=== PATIENT | female | born 1995 | race Caucasian/White ===

== ENCOUNTER 2022-07-28 17:20 | Outpatient (OUT) | payer OTHER, SELFPAY | END 2022-07-28 17:21 | disposition home or self-care (01) | PROVIDERS: PCP Obstetrics & Gynecology; Visit Provider Obstetrics & Gynecology | DX: O21.0 Mild hyperemesis gravidarum (principal); Z3A.00 Weeks of gestation of pregnancy not specified | CPT/HCPCS: 96360; 96361 ==

== ENCOUNTER 2022-08-11 17:03 | Outpatient (OUT) | payer OTHER, SELFPAY ==
[2022-08-11 17:54] VITALS: RESP 16
[2022-08-11 17:57] VITALS: BP 136/82; PULSE 76; RESP 16; TEMP 36.1; O2SAT 98
[2022-08-11] MEDS: MULTIVIT INFUSN,ADULT 4,VIT K 10 ML in 0.9 % SODIUM CHLORIDE 1,000 ML 200 ML IV (18:36)
[2022-08-11 21:23] VITALS: BP 108/70; PULSE 83; RESP 20; TEMP 36.4; O2SAT 98
== END 2022-08-11 23:24 | disposition home or self-care (01) ==
LOC: INF 17:05 → MS 17:09 → INF 17:12 → MS 17:24
PROVIDERS: PCP Obstetrics & Gynecology; Visit Provider Obstetrics & Gynecology
DX: O21.0 Mild hyperemesis gravidarum (principal); Z3A.00 Weeks of gestation of pregnancy not specified

== ENCOUNTER 2022-08-22 14:30 | Outpatient (OUT) | payer OTHER, SELFPAY ==
--- NOTE | 2022-08-22 | US_ITS ---
[address] [address] Patient Name: KEYSHA HOGAN MRN: [id number] date: 1995 Sex: F Assigned Patient Location: US Current Patient Location: US Accession/Order Number: [id number] Exam Date: 08/22/2022 14:35 Report Date: 08/23/2022 21:55 At the request of: TONY SERNA Procedure: US OB transvaginal EXAMINATION: US OB anatomy, US OB transvaginal HISTORY: ANATOMY COMPARISON: No relevant comparison available. TECHNIQUE: Transabdominal sonographic examination was performed for obstetrical and evaluation. FINDINGS: Number: 1 Heart Rate: 141.0 bpm H.B. /min Amniotic Fluid Volume: Subjectively normal position: Transverse presentation and lie Placental Location: Posterior, grade 0. The placental edge 3 cm from the cervical os Cervix Length: 4.4 cm, closed Normally visualized anatomy: Cerebellum, choroid plexus, cisterna magna, lateral cerebral ventricles, orbits, midline falx, hard palate, four-chamber heart, RVOT, LVOT, stomach, kidneys, bladder, umbilical cord insertion into the abdomen, three-vessel cord, cervical spine, thoracic spine, lumbar spine, sacral spine, right upper extremity, left upper extremity, right lower extremity, left lower extremity Suboptimally visualized anatomy: None BIOMETRY: BPD: 4.5 cm 19 weeks 5 days , 19 weeks 5 days, 38% HC: 17.6 cm 20 weeks 0 days, 20 weeks 0 days, 44% AC: 16.8 cm 21 weeks 5 days, 21 weeks 5 days, 92% FL: 3.5 cm 21 weeks 0 days, 20 weeks 0 days, 77% EFW:408.1 grams; 14 ounces, 97% FL/AC: 20.8 FL/BPD: 76.9 HC/AC: 1.1 GESTATIONAL AGE: Age by EDC: 20 weeks 0 days GREG by EDC: 01/09/2023 Age by current US: 20 weeks 4 days GREG by current US: 01/05/2023 IMPRESSION: Large for gestational age. Estimated weight 97th percentile Otherwise normal anatomy scan. *Reference: [facility] Practice Guideline for the performance of Obstetric Ultrasound Examinations, November 27, 2006. Electronically authenticated by: RAFY MALONEY Date: 08/23/2022 21:55
--- NOTE | 2022-08-22 | US_ITS ---
[address] [address] Patient Name: KEYSHA HOGAN MRN: [id number] date: 1995 Sex: F Assigned Patient Location: US Current Patient Location: US Accession/Order Number: [id number] Exam Date: 08/22/2022 14:35 Report Date: 08/23/2022 21:55 At the request of: TONY SERNA Procedure: US OB anatomy EXAMINATION: US OB anatomy, US OB transvaginal HISTORY: ANATOMY COMPARISON: No relevant comparison available. TECHNIQUE: Transabdominal sonographic examination was performed for obstetrical and evaluation. FINDINGS: Number: 1 Heart Rate: 141.0 bpm H.B. /min Amniotic Fluid Volume: Subjectively normal position: Transverse presentation and lie Placental Location: Posterior, grade 0. The placental edge 3 cm from the cervical os Cervix Length: 4.4 cm, closed Normally visualized anatomy: Cerebellum, choroid plexus, cisterna magna, lateral cerebral ventricles, orbits, midline falx, hard palate, four-chamber heart, RVOT, LVOT, stomach, kidneys, bladder, umbilical cord insertion into the abdomen, three-vessel cord, cervical spine, thoracic spine, lumbar spine, sacral spine, right upper extremity, left upper extremity, right lower extremity, left lower extremity Suboptimally visualized anatomy: None BIOMETRY: BPD: 4.5 cm 19 weeks 5 days , 19 weeks 5 days, 38% HC: 17.6 cm 20 weeks 0 days, 20 weeks 0 days, 44% AC: 16.8 cm 21 weeks 5 days, 21 weeks 5 days, 92% FL: 3.5 cm 21 weeks 0 days, 20 weeks 0 days, 77% EFW:408.1 grams; 14 ounces, 97% FL/AC: 20.8 FL/BPD: 76.9 HC/AC: 1.1 GESTATIONAL AGE: Age by EDC: 20 weeks 0 days GREG by EDC: 01/09/2023 Age by current US: 20 weeks 4 days GREG by current US: 01/05/2023 IMPRESSION: Large for gestational age. Estimated weight 97th percentile Otherwise normal anatomy scan. *Reference: [facility] Practice Guideline for the performance of Obstetric Ultrasound Examinations, November 27, 2006. Electronically authenticated by: RAFY MALONEY Date: 08/23/2022 21:55
== END 2022-08-22 14:31 | disposition home or self-care (01) ==
LOC: US 14:31
PROVIDERS: PCP Obstetrics & Gynecology; Visit Provider Obstetrics & Gynecology
DX: Z34.92 Encounter for supervision of normal pregnancy, unspecified, second trimester (principal)
CPT/HCPCS: 36415; 76805; 76817; 82105

== ENCOUNTER 2022-08-22 15:41 | Outpatient (OUT) | payer OTHER, SELFPAY ==
[2022-08-25 01:07] LABS: AFP Value 70.4 ng/mL (.); Insulin Dep Diabetes No (.); Maternal Age At EDD 28.5 yr (.); OSBR Risk 1 IN 5411 (.); Results Report (.)
== END 2022-08-22 15:42 | disposition home or self-care (01) ==
PROVIDERS: PCP Obstetrics & Gynecology; Visit Provider Physician Assistant
DX: Z34.92 Encounter for supervision of normal pregnancy, unspecified, second trimester (principal)
CPT/HCPCS: 36415; 82105

== ENCOUNTER 2022-09-30 07:05 | Outpatient (OUT) | payer OTHER, SELFPAY ==
[2022-09-30 08:21] LABS: Basophils Percent Auto 0.3 % (0.2-2.0); Eosinophils Absolute Auto 0.1 10^3/uL (0.0-0.7); Eosinophils Percent Auto 0.5 % (0.9-7.0); Hematocrit 31.1 % (36.0-48.0); Hemoglobin 10.3 g/dL (12.0-16.0); Lymphocytes Absolute Auto 1.5 10^3/uL (1.2-3.8); Lymphocytes Percent Auto 15.4 % (20.5-60.0); Mean Corpuscular HGB Conc 33.1 g/dL (29.9-35.2); Mean Corpuscular Hemoglobin 30.3 pg (26.7-34.0); Mean Corpuscular Volume 91.5 fL (81.0-99.0); Mean Platelet Volume 9.3 fL (9.5-13.5); Monocytes Absolute Auto 0.8 10^3/uL (0.3-0.8); Neutrophils Absolute Auto 7.1 10^3/uL (1.4-6.5); Neutrophils Percent Auto 74.8 % (43.0-75.0); Platelet Count 282 10^3/uL (150-450); Red Cell Distribution Width 11.8 % (11.0-15.0); White Blood Count 9.6 10^3/uL (4.0-11.0)
[2022-09-30 08:56] LABS: Glucose 1 Hour 92 mg/dL
== END 2022-09-30 07:06 | disposition home or self-care (01) ==
LOC: LAB 07:06
PROVIDERS: PCP Family Medicine; Visit Provider Obstetrics & Gynecology
DX: Z13.1 Encounter for screening for diabetes mellitus (principal); Z34.92 Encounter for supervision of normal pregnancy, unspecified, second trimester
CPT/HCPCS: 36415; 82950; 85025

== ENCOUNTER 2022-10-17 08:23 | Outpatient (OUT) | payer OTHER, SELFPAY ==
--- NOTE | 2022-10-17 08:26 | US_ITS ---
The [address] [address] Patient Name: KEYSHA HOGAN MRN: [id number] date: 1995 Sex: F Assigned Patient Location: Current Patient Location: Accession/Order Number: [id number] Exam Date: 10/17/2022 08:25 Report Date: 10/17/2022 15:43 At the request of: TONY SERNA Procedure: US OB growth EXAMINATION: US OB growth HISTORY: LGA COMPARISON: No relevant comparison available. FINDINGS: Heart Rate: 144.0 bpm Number: 1.0 Position: Breech Amniotic Fluid Volume: 9.2 cm Maximum Vertical Pocket: 3.0 cm BIOMETRY: BPD: 6.3 cm cm; 25 weeks 4 days; less than 3% HC: 26.1 cmcm; 28 weeks 3 days; 30% AC: 24.0 cm cm; 28 weeks 2 days; 52% FL: 5.6 cm cm; 29 weeks 4 days; 78% EFW: 1241.7 grams; 58% FL/AC: 23.4 FL/BPD: 88.6 HC/AC: 1.1 GESTATIONAL AGE: Age by EDC: 28 weeks 0 days GREG by EDC: 01/09/2023 Age by US: 28 weeks 0 days GREG by US: 01/09/2023 US/US OB growth IMPRESSION: 1. Single live intrauterine with growth detailed above. 2. Biparietal diameter is less than 3rd percentile. 3. Oligohydramnios. Dr. Serna was notified of these findings by the emulsion operator at time of imaging. Electronically authenticated by: TRI BERRIOS Date: 10/17/2022 15:43
== END 2022-10-17 08:24 | disposition home or self-care (01) ==
LOC: US 08:23
PROVIDERS: PCP Family Medicine; Visit Provider Obstetrics & Gynecology
DX: O36.63X0 Maternal care for excessive fetal growth, third trimester, not applicable or unspecified (principal); Z3A.38 38 weeks gestation of pregnancy; O41.03X0 Oligohydramnios, third trimester, not applicable or unspecified
CPT/HCPCS: 76816

== ENCOUNTER 2022-10-26 10:53 | Outpatient (OUT) | payer OTHER, SELFPAY ==
--- NOTE | 2022-10-26 10:54 | US_ITS ---
[address] [address] Patient Name: KEYSHA HOGAN MRN: [id number] date: 1995 Sex: F Assigned Patient Location: US Current Patient Location: US Accession/Order Number: [id number] Exam Date: 10/26/2022 11:00 Report Date: 10/26/2022 12:11 At the request of: TONY SERNA Procedure: US OB amniotic fluid vol EXAMINATION: US OB amniotic fluid vol HISTORY: THIRD TRIMESTER Z34.93 OLIGOHYDRAMINOS COMPARISON: 10/17/2022 FINDINGS: position: Breech presentation, longitudinal lie Amniotic fluid volume: 7.3 cm, oligohydramnios Largest fluid pocket: 2.8 cm Heart rate: 141 bpm US/US OB amniotic fluid vol IMPRESSION: Oligohydramnios. Amniotic fluid volume is decreased from the prior exam Electronically authenticated by: RAFY MALONEY Date: 10/26/2022 12:11
== END 2022-10-26 10:54 | disposition home or self-care (01) ==
LOC: US 10:53
PROVIDERS: PCP Family Medicine; Visit Provider Obstetrics & Gynecology
DX: O41.03X0 Oligohydramnios, third trimester, not applicable or unspecified (principal); Z3A.00 Weeks of gestation of pregnancy not specified
CPT/HCPCS: 76815

== ENCOUNTER 2022-10-26 15:25 | Observation (INO) | payer OTHER, SELFPAY ==
[2022-10-26 15:39] VITALS: BP 130/77; PULSE 122
[2022-10-26] MEDS: 0.9 % SODIUM CHLORIDE 1,000 ML 125 ML IV (16:35)
[2022-10-26 19:41] VITALS: BP 110/69; PULSE 97; RESP 16; TEMP 36.9
[2022-10-26] MEDS: FAMOTIDINE 20 MG TABLET PO (21:16)
[2022-10-26] MEDS: IRON POLYSACCHARIDE COMPLEX 180 MG CAPSULE PO (21:16)
[2022-10-26] MEDS: ASPIRIN 81 MG TABLET.DR PO (21:16)
[2022-10-27 00:27] VITALS: BP 95/50; PULSE 76; RESP 16; TEMP 36.9
[2022-10-27 00:32] VITALS: RESP 16; TEMP 36.9
[2022-10-27] MEDS: 0.9 % SODIUM CHLORIDE 1,000 ML 125 ML IV (03:26)
[2022-10-27 06:34] VITALS: BP 103/62; PULSE 88
[2022-10-27] MEDS: LEVOTHYROXINE SODIUM 175 MCG TABLET PO (06:36)
[2022-10-27 08:20] VITALS: BP 114/69; PULSE 100
--- NOTE | 2022-10-27 09:00 | US_ITS ---
[address] [address] Patient Name: KEYSHA HOGAN MRN: [id number] date: 1995 Sex: F Assigned Patient Location: [facility] Current Patient Location: [facility] Accession/Order Number: [id number] Exam Date: 10/27/2022 07:45 Report Date: 10/27/2022 22:14 At the request of: TONY SERNA Procedure: US OB BPP w non-stress EXAMINATION: US OB BPP w non-stress HISTORY: oligohydramnios COMPARISON: Ultrasound OB growth 10/17/2022 TECHNIQUE: Ultrasound biophysical profile was performed in the radiology department. BREATHING MOVEMENTS: 2.0 GROSS BODY MOVEMENTS: 2.0 TONE: 2.0 QUALITATIVE AMNIOTIC FLUID VOLUME: 2.0 PRESENTATION: BREECH HEART RATE: 157.9 bpm bpm. AMNIOTIC FLUID VOLUME: 8.0 cm GESTATIONAL AGE: 29 weeks 3 days CONCLUSION: 1. Total biophysical profile score 8.0. 2. Oligohydramnios. Electronically authenticated by: TRI BERRIOS Date: 10/27/2022 22:14
--- NOTE | 2022-10-27 09:00 | US_ITS ---
[address] [address] Patient Name: KEYSHA HOGAN MRN: [id number] date: 1995 Sex: F Assigned Patient Location: [facility] Current Patient Location: [facility] Accession/Order Number: [id number] Exam Date: 10/27/2022 07:45 Report Date: 10/27/2022 22:13 At the request of: TONY SERNA Procedure: US OB umbilical artery EXAMINATION: US OB umbilical artery HISTORY: oligohydramnios COMPARISON: No relevant comparison available. TECHNIQUE: Duplex Doppler evaluation of the umbilical arteries. FINDINGS: HEART RATE: 156 bpm UMBILICAL ARTERIES: 2 GESTATIONAL AGE: 29 weeks 3 days WAVEFORM: Normal upstroke. No notching. Forward flow in diastole. PEAK SYSTOLIC VELOCITY: 114 cm/s END DIASTOLIC VELOCITY: 33 cm/s SYST/DIAST RATIO (S:D): 3.4 RESISTIVE INDEX: 0.71 US/US OB umbilical artery IMPRESSION: Class 0 = Normal umbilical artery blood velocity Electronically authenticated by: TRI BERRIOS Date: 10/27/2022 22:13
--- NOTE | 2022-11-03 12:58 | PM.OBPN ---
OB - PN: Subj Subjective Interval history: pt was admitted for low abel at 30wks gestation for iv hydration, pt has no other complaints Exam Constitutional Vital Signs, click to edit/add: Last Vital Signs Temp 98.4 F 10/27/22 00:32 Pulse 100 H 10/27/22 08:20 Resp 16 10/27/22 00:32 BP 114/69 10/27/22 08:20 Documenting provider has reviewed patient's vital signs: yes Common normals: no apparent distress Respiratory Common normals: clear to auscultation bilaterally Cardio Common normals: regular rate and regular rhythm GI Common normals: Normal to inspection, nondistended, normoactive bowel sounds present Extremity Common normals: no clubbing, cyanosis or edema and no calf tenderness OB - PN: A/P Assessment and Plan (1) Oligohydramnios antepartum: Plan iup at 30wks, low able-discussed with mfm, they would like to see her for evaluation, precautions given to patient Time Spent with Patient Time: Total time spent is greater than 50% in coordination of care (as documented) at patient's floor/unit and/or counseling patient: Total time spent with greater than 50% in coordination of care (as documented) at patient's floor/unit and/or counseling patient: less than 15 minutes
== END 2022-10-27 08:48 | disposition home or self-care (01) ==
PROVIDERS: Admitting Provider Obstetrics & Gynecology; PCP Family Medicine; Visit Provider Midwife
DX: O41.03X0 Oligohydramnios, third trimester, not applicable or unspecified (principal); Z3A.29 29 weeks gestation of pregnancy
CPT/HCPCS: 59025; 76815; 76818; 76820; G0378; G0379

== ENCOUNTER 2022-11-14 07:40 | Outpatient (OUT) | payer OTHER, SELFPAY ==
--- NOTE | 2022-11-14 18:00 | US_ITS ---
[place] [id number] Patient Name: KEYSHA HOGAN MRN: [id number] date: 1995 Sex: F Assigned Patient Location: [facility] Current Patient Location: Accession/Order Number: [id number] Exam Date: 11/14/2022 18:01 Report Date: 11/15/2022 05:03 At the request of: TONY SERNA Procedure: US OB BPP w non-stress EXAMINATION: US OB BPP w non-stress HISTORY: O41.03X0 OLIGOHYRDAMINOS COMPARISON: No relevant comparison available. TECHNIQUE: Ultrasound biophysical profile was performed in the radiology department. FINDINGS: BREATHING MOVEMENTS: 2.0 GROSS BODY MOVEMENTS: 2.0 TONE: 2.0 QUALITATIVE AMNIOTIC FLUID VOLUME: 2.0 PRESENTATION: CEPHALIC HEART RATE: 142.9 bpm H.B./min AMNIOTIC FLUID VOLUME: 10.2 cm cm GESTATIONAL AGE: 32 weeks 0 days CONCLUSION: Total biophysical profile score: 8.0 Electronically authenticated by: RAFY MALONEY Date: 11/15/2022 05:03
[2022-11-14 18:19] VITALS: BP 122/80; PULSE 112
== END 2022-11-14 18:50 ==
LOC: US 17:51 → FBC 17:53
PROVIDERS: PCP Family Medicine; Visit Provider Obstetrics & Gynecology
DX: O36.63X0 Maternal care for excessive fetal growth, third trimester, not applicable or unspecified (principal); Z3A.32 32 weeks gestation of pregnancy
CPT/HCPCS: 76818

== ENCOUNTER 2022-11-17 07:23 | Outpatient (OUT) | payer OTHER, SELFPAY ==
[2022-11-17 18:10] VITALS: BP 129/76; PULSE 113
== END 2022-11-17 18:50 | disposition home or self-care (01) ==
LOC: FBCO 17:51 → FBC 18:05
PROVIDERS: PCP Family Medicine; Visit Provider Obstetrics & Gynecology
DX: O41.00X0 Oligohydramnios, unspecified trimester, not applicable or unspecified (principal); Z3A.00 Weeks of gestation of pregnancy not specified
CPT/HCPCS: 59025

== ENCOUNTER 2022-11-21 07:20 | Outpatient (OUT) | payer OTHER, SELFPAY ==
--- NOTE | 2022-11-21 | US_ITS ---
[address] [address] Patient Name: KEYSHA HOGAN MRN: [id number] date: 1995 Sex: F Assigned Patient Location: [facility] Current Patient Location: Accession/Order Number: [id number] Exam Date: 11/21/2022 18:00 Report Date: 11/22/2022 07:08 At the request of: TONY SERNA Procedure: US OB BPP w non-stress EXAMINATION: US OB BPP w non-stress HISTORY: OLIGOHYRDRAMINIOS O41.03XO COMPARISON: No relevant comparison available. TECHNIQUE: Ultrasound biophysical profile was performed in the radiology department. FINDINGS: BREATHING MOVEMENTS: 2.0 GROSS BODY MOVEMENTS: 2.0 TONE: 2.0 QUALITATIVE AMNIOTIC FLUID VOLUME: 2.0 PRESENTATION: BREECH HEART RATE: 154.3 bpm H.B./min AMNIOTIC FLUID VOLUME: 7.0 cm GESTATIONAL AGE: 33 weeks 0 days CONCLUSION: Total biophysical profile score: 8.0 Oligohydramnios Electronically authenticated by: RAFY MALONEY Date: 11/22/2022 07:08
[2022-11-21 18:24] VITALS: BP 131/77; PULSE 104
== END 2022-11-21 18:50 | disposition home or self-care (01) ==
LOC: US 17:50 → FBC 17:53
PROVIDERS: PCP Family Medicine; Visit Provider Obstetrics & Gynecology
DX: O41.03X0 Oligohydramnios, third trimester, not applicable or unspecified (principal); Z3A.33 33 weeks gestation of pregnancy
CPT/HCPCS: 76818

== ENCOUNTER 2022-11-24 09:01 | Outpatient (OUT) | payer OTHER, SELFPAY ==
[2022-11-24 18:02] VITALS: BP 118/74; PULSE 93
== END 2022-11-24 18:50 | disposition home or self-care (01) ==
LOC: FBCO 17:47 → FBC 17:51
PROVIDERS: PCP Family Medicine; Visit Provider Obstetrics & Gynecology
DX: O36.62X0 Maternal care for excessive fetal growth, second trimester, not applicable or unspecified (principal)
CPT/HCPCS: 59025

== ENCOUNTER 2022-11-28 13:06 | Outpatient (OUT) | payer OTHER, SELFPAY ==
--- NOTE | 2022-11-28 18:27 | US_ITS ---
[address] [address] Patient Name: KEYSHA HOGAN MRN: [id number] date: 1995 Sex: F Assigned Patient Location: [facility] Current Patient Location: Accession/Order Number: [id number] Exam Date: 11/28/2022 18:36 Report Date: 11/29/2022 19:06 At the request of: TONY SERNA Procedure: US OB BPP w non-stress EXAMINATION: US OB BPP w non-stress HISTORY: OLIGOHYDRAMINOS IN THIRD TRIMESTER O41.03X0 COMPARISON: No relevant comparison available. TECHNIQUE: Ultrasound biophysical profile was performed in the radiology department. FINDINGS: BREATHING MOVEMENTS: 2.0 GROSS BODY MOVEMENTS: 2.0 TONE: 2.0 QUALITATIVE AMNIOTIC FLUID VOLUME: 2.0 PRESENTATION: BREECH HEART RATE: 142.9 bpm H.B./min AMNIOTIC FLUID VOLUME: 8.9 cm cm GESTATIONAL AGE: 34 weeks 0 days CONCLUSION: Total biophysical profile score: 8.0 Electronically authenticated by: RAFY MALONEY Date: 11/29/2022 19:06
[2022-11-28 18:44] VITALS: BP 126/85; PULSE 115
== END 2022-11-28 19:01 | disposition home or self-care (01) ==
LOC: US 17:55 → FBC 17:58
PROVIDERS: PCP Family Medicine; Visit Provider Obstetrics & Gynecology
DX: O41.03X0 Oligohydramnios, third trimester, not applicable or unspecified (principal); Z3A.34 34 weeks gestation of pregnancy
CPT/HCPCS: 76818

== ENCOUNTER 2022-12-01 07:43 | Outpatient (OUT) | payer OTHER, SELFPAY ==
[2022-12-01 18:02] VITALS: BP 141/97; PULSE 93
[2022-12-01 18:15] VITALS: BP 129/81; PULSE 106
[2022-12-01] MEDS: BETAMETHASONE ACE/BETAMETHASONE SOD PHOS 30 MG/5 ML 12 MG IM (18:17)
== END 2022-12-01 18:22 | disposition home or self-care (01) ==
LOC: FBCO 17:52 → FBC 17:52
PROVIDERS: PCP Family Medicine; Visit Provider Obstetrics & Gynecology
DX: O41.00X0 Oligohydramnios, unspecified trimester, not applicable or unspecified (principal); Z3A.00 Weeks of gestation of pregnancy not specified
CPT/HCPCS: 96372; J0702

== ENCOUNTER 2022-12-02 07:32 | Outpatient (OUT) | payer OTHER, SELFPAY ==
[2022-12-02] MEDS: BETAMETHASONE ACE/BETAMETHASONE SOD PHOS 30 MG/5 ML 12 MG IM (17:58)
== END 2022-12-02 18:20 | disposition home or self-care (01) ==
LOC: FBCO 07:32 → FBC 17:50
PROVIDERS: PCP Family Medicine; Visit Provider Obstetrics & Gynecology
DX: O41.03X0 Oligohydramnios, third trimester, not applicable or unspecified (principal); Z3A.00 Weeks of gestation of pregnancy not specified
CPT/HCPCS: 59025; 96372; J0702

== ENCOUNTER 2022-12-05 07:21 | Outpatient (OUT) | payer OTHER, SELFPAY ==
--- NOTE | 2022-12-05 18:58 | US_ITS ---
[address] [address] Patient Name: KEYSHA HOGAN MRN: [id number] date: 1995 Sex: F Assigned Patient Location: US Current Patient Location: Accession/Order Number: [id number] Exam Date: 12/05/2022 19:00 Report Date: 12/06/2022 07:15 At the request of: TONY SERNA Procedure: US OB BPP w non-stress EXAMINATION: US OB BPP w non-stress HISTORY: OLIGOHYRDAMINOS 041.03X0 COMPARISON: No relevant comparison available. TECHNIQUE: Ultrasound biophysical profile was performed in the radiology department. FINDINGS: BREATHING MOVEMENTS: 2.0 GROSS BODY MOVEMENTS: 2.0 TONE: 2.0 QUALITATIVE AMNIOTIC FLUID VOLUME: 2.0 PRESENTATION: CEPHALIC HEART RATE: 159.8 bpm H.B./min AMNIOTIC FLUID VOLUME: 4.6 cm cm GESTATIONAL AGE: 35 weeks 0 days CONCLUSION: Total biophysical profile score: 8.0 Electronically authenticated by: RAFY MALONEY Date: 12/06/2022 07:15
[2022-12-05 19:18] VITALS: BP 120/80; PULSE 118
== END 2022-12-05 20:00 | disposition home or self-care (01) ==
LOC: US 07:21 → FBC 19:02
PROVIDERS: PCP Family Medicine; Visit Provider Obstetrics & Gynecology
DX: O41.03X0 Oligohydramnios, third trimester, not applicable or unspecified (principal); Z3A.35 35 weeks gestation of pregnancy
CPT/HCPCS: 76818

== ENCOUNTER 2022-12-07 19:15 | Outpatient (REF) | payer OTHER, SELFPAY | END 2022-12-07 19:16 | disposition home or self-care (01) | LOC: LAB 19:15 | PROVIDERS: PCP Family Medicine; Visit Provider Obstetrics & Gynecology | DX: Z34.93 Encounter for supervision of normal pregnancy, unspecified, third trimester (principal) | CPT/HCPCS: 87070; 87081 ==

== ENCOUNTER 2022-12-08 07:28 | Outpatient (OUT) | payer OTHER, SELFPAY | END 2022-12-08 11:15 | disposition home or self-care (01) | LOC: FBCO 07:29 → FBC 10:30 | PROVIDERS: PCP Family Medicine; Visit Provider Obstetrics & Gynecology | DX: O41.03X0 Oligohydramnios, third trimester, not applicable or unspecified (principal); Z3A.00 Weeks of gestation of pregnancy not specified | CPT/HCPCS: 59025 ==

== ENCOUNTER 2022-12-12 05:35 | Inpatient (IN) | payer OTHER, SELFPAY ==
[2022-12-12] VITALS (48 sets, daily range): BP systolic 104–133; BP diastolic 60–90; PULSE 83–105; RESP 9–22; TEMP 35.8–37.1; O2SAT 96–97
[2022-12-12] MEDS: 0.9 % SODIUM CHLORIDE 1,000 ML 999 ML IV (06:10)
[2022-12-12 06:33] LABS: Hematocrit 32.2 % (36.0-48.0); Hemoglobin 10.4 g/dL (12.0-16.0); Mean Corpuscular HGB Conc 32.3 g/dL (29.9-35.2); Mean Corpuscular Hemoglobin 27.8 pg (26.7-34.0); Mean Corpuscular Volume 86.1 fL (81.0-99.0); Mean Platelet Volume 10.4 fL (9.5-13.5); Platelet Count 329 10^3/uL (150-450); Red Blood Count 3.74 10^6/uL (4.20-5.40); Red Cell Distribution Width 13.5 % (11.0-15.0); White Blood Count 13.5 10^3/uL (4.0-11.0)
[2022-12-12] MEDS: 0.9 % SODIUM CHLORIDE 1,000 ML 125 ML IV (06:56)
[2022-12-12 07:08] LABS: Amphetamine Screen Urine NEGATIVE (NEGATIVE); Cannabinoid Screen Urine NEGATIVE (NEGATIVE); Cocaine Screen Urine NEGATIVE (NEGATIVE); Methamphetamines Screen Urine NEGATIVE (NEGATIVE); Opiate Screen Urine NEGATIVE (NEGATIVE); Phencyclidine Screen Urine NEGATIVE (NEGATIVE)
[2022-12-12 07:09] LABS: Barbiturates Screen Urine NEGATIVE (NEGATIVE); Benzodiazepines Screen Urine NEGATIVE (NEGATIVE); Buprenorphine Screen Urine NEGATIVE (NEGATIVE); Methadone Screen Urine NEGATIVE (NEGATIVE); Oxycodone Screen Urine NEGATIVE (NEGATIVE); Tricyclic Antidepressant Urine NEGATIVE (NEGATIVE)
--- NOTE | 2022-12-12 07:19 | W.PC.ACHO ---
Registration Status: ADM IN Primary Language: Finnish Preferred Language: Finnish Active Medications Generic Name Dose Route Start Last Admin Trade Name Sheri PRN Reason Stop Dose Admin Cefazolin Sodium/Dextrose 2 gm in 50 mls @ 100 mls/hr 12/12/22 07:00 Ancef IV 12/12/22 07:29 ONCE ONE Oxytocin/Sodium Chloride 20 units in 1,000 mls @ 125 mls/hr 12/12/22 05:45 Pitocin 20 Unit/1,000 Ml-Ns IV 12/12/22 13:44 Q8H JUSTIN Sodium Chloride 1,000 mls @ 125 mls/hr 12/12/22 07:00 12/12/22 06:56 Sodium Chloride 0.9% 1,000 Ml IV 12/12/22 14:59 125 mls/hr .Q8H ONE Administration Levothyroxine Sodium 175 mcg 12/13/22 06:30 Levothyroxine Sodium 175 Mcg Tablet PO ACB JUSTIN Methylergonovine Maleate 0.2 mg 12/12/22 05:36 Methylergonovine Maleate 0.2 Mg/Ml Ampule IM 12/14/22 05:36 ONCE PRN Uterine Contractility/Contract Methylergonovine Maleate 0.2 mg 12/12/22 05:36 Methylergonovine Maleate 0.2 Mg Tablet PO 12/14/22 05:36 Q4H PRN Uterine Contractility/Contract Misoprostol 600 mcg 12/12/22 05:36 Misoprostol 100 Mcg Tablet PO 12/14/22 05:36 ONCE PRN Uterine Bleeding Misoprostol 800 mcg 12/12/22 05:36 Misoprostol 100 Mcg Tablet SL 12/14/22 05:36 ONCE PRN Uterine Bleeding Misoprostol 1,000 mcg 12/12/22 05:36 Misoprostol 100 Mcg Tablet VT 12/14/22 05:36 ONCE PRN Uterine Bleeding Ondansetron HCl 4 mg 12/12/22 05:36 Ondansetron Pf 4 Mg/2 Ml Vial IV Q6H PRN Nausea And Vomiting Ondansetron HCl 4 mg 12/12/22 05:36 Ondansetron 4 Mg Rapdis Tablet SL Q6H PRN Nausea And Vomiting Oxytocin 10 unit 12/12/22 05:36 Oxytocin 10 Unit/Ml Vial IM 12/14/22 05:36 ONCE PRN Hemorrhage Diet Category Date Time Status Regular Consistency Diet Diet 12/12/22 05:36 Active IV Insertion/Site Date of IV Line Insertion [20g 12/12/22 left Hand] IV Insertion Time [20g left 06:04 Hand] Neurology Patient orientation (short person,place,time,situation list) Respiratory Oxygen Delivery Method Room Air Catheter Urinary Catheter Date of 12/12/22 Insertion [Urethral] Urinary Catheter Date of 12/12/22 Insertion [Urethral] Urinary Catheter Time of 06:15 Insertion [Urethral] Urinary Catheter Time of 06:15 Insertion [Urethral]
[2022-12-12] MEDS: FAMOTIDINE/PF 20 MG/2 ML VIAL IV (07:20)
[2022-12-12] MEDS: CITRIC ACID/SODIUM CITRATE 30 ML SOLUTION ORACIT SHOHL'S SOLN PO (07:20)
[2022-12-12] MEDS: CEFAZOLIN SODIUM/DEXTROSE,ISO 2 GM/50 ML PIGGYBACK IV ×2 (07:37→13:52)
[2022-12-12] MEDS: LACTATED RINGER'S SOLUTION 1,000 ML 50 ML IV (08:10)
--- NOTE | 2022-12-12 08:34 | PM.OBPRCCS ---
Procedure Pre-op/Post-op diagnoses: Pre-Op/Post-Op Diagnoses Operation Date: 12/12/22 07:30 <No data on this case meets the specified criteria> Procedure: Procedures Operation Date: 12/12/22 07:30 Actual Procedure Side Surgeon p Not Applicable Gigi Tafoya DO Alternative Energy Engineer: Analilia Ibarra Disposition: floor Anesthesia type: Spinal
--- NOTE | 2022-12-12 08:34 | PM.ONB ---
Brief Operative Note Date of procedure: 12/12/22 Pre-op diagnosis: iup at 36wks, iugr, oligohydramnios, delivery per mfm, breech presentation Post-op diagnosis: same as pre-op Procedure: NAME OF PROCEDURE: [ section ] PROCEDURE: Patient was taken back to the Operating Room where she was given a spinal anesthesia with Duramorph without difficulty. She was prepped and draped in the normal sterile fashion. A Pfannenstiel skin incision was then made 2 cm above the symphysis pubis and carried down to underlying rectus fascia using a Bovie. The fascia was incised in the midline and extended laterally using Avelar scissors. Two Mynor clamps were placed on the superior aspect of the fascia and dissected off the underlying rectus muscles. The same was performed on the inferior aspect as well. The muscles were then in the midline. Peritoneum was identified and entered bluntly. The peritoneum was then extended superiorly and inferiorly with good visualization of the bladder. The bladder blade was inserted. A low transverse incision was made on the patient's uterus and extended laterally digitally. The infant was then delivered atraumatically after the bladder blade was removed in the breech position. The cord was clamped and cut. Cord blood was obtained. The was handed off to awaiting team. The patient's placenta was spontaneously delivered. The uterus was then exteriorized. The uterus was cleared of all clots and debris. The bladder blade was reinserted. The patient's uterine incision was closed using #0 Vicryl in a running lock fashion. Excellent hemostasis was assured. The uterus was then returned to the patient's abdomen. The patient's abdomen was copiously irrigated using warm saline. Peritoneal gutters were cleared of all clots and debris. Again excellent hemostasis was assured. The patient's peritoneum was closed using 3-0 Vicryl in a running fashion. The patient's fascia was closed using #0 Vicryl in a running fashion. The patient's skin was closed using 4-0 Vicryl subcuticularly. The patient tolerated the procedure well. Sponge, lap, and needle counts were correct x2. The patient was taken to the Recovery Room in stable condition. Anesthesia: spinal Surgeon: Gigi Tafoya Manufacturing Lead: Analilia Ibarra Estimated blood loss (mL): 600 Pathology: other (placenta) Condition: stable Disposition: floor
[2022-12-12] MEDS: OXYTOCIN/0.9 % SODIUM CHLORIDE 20 UNITS/1,000 ML PLAST..BAG 125 UNIT IV (09:08)
[2022-12-12] MEDS: KETOROLAC TROMETHAMINE 30 MG/ML VIAL IVP ×2 (13:51→20:48)
--- NOTE | 2022-12-12 15:27 | PC.NURSE ---
1500 Assisted patient up to the bathroom,instructed on marin care. Jones emptied for 1400 clear urine. tolerated well.
--- NOTE | 2022-12-12 15:56 | PC.NURSE ---
Assisted with latching. Had used shield with prior feeds baby does not settle. Shield removed and latched without. Active nursing for 6 minutes in burst and pauses. Discussed behaviors of 36 week baby. Had been given info on late and at partners appointment. Discussed hand expression beginning at 12 hours to ensure emptying of breast.
[2022-12-13 00:22] VITALS: BP 100/64; RESP 16
[2022-12-13] MEDS: KETOROLAC TROMETHAMINE 30 MG/ML VIAL IVP (03:06)
[2022-12-13 04:30] VITALS: BP 110/63; RESP 16
[2022-12-13 05:55] LABS: Basophils Absolute Auto 0.1 10^3/uL (0.0-0.1); Basophils Percent Auto 0.2 % (0.2-2.0); Eosinophils Absolute Auto 0.1 10^3/uL (0.0-0.7); Eosinophils Percent Auto 0.2 % (0.9-7.0); Hematocrit 28.3 % (36.0-48.0); Hemoglobin 9.2 g/dL (12.0-16.0); Immature Granulocytes Pct Auto 0.9 % (0.0-0.5); Lymphocytes Absolute Auto 2.5 10^3/uL (1.2-3.8); Lymphocytes Percent Auto 11.9 % (20.5-60.0); Mean Corpuscular HGB Conc 32.5 g/dL (29.9-35.2); Mean Corpuscular Hemoglobin 28.4 pg (26.7-34.0); Mean Corpuscular Volume 87.3 fL (81.0-99.0); Mean Platelet Volume 10.4 fL (9.5-13.5); Monocytes Absolute Auto 2.4 10^3/uL (0.3-0.8); Monocytes Percent Auto 11.2 % (1.7-12.0); Neutrophils Absolute Auto 16.1 10^3/uL (1.4-6.5); Neutrophils Percent Auto 75.6 % (43.0-75.0); Platelet Count 284 10^3/uL (150-450); Red Blood Count 3.24 10^6/uL (4.20-5.40); Red Cell Distribution Width 13.5 % (11.0-15.0); White Blood Count 21.3 10^3/uL (4.0-11.0)
--- NOTE | 2022-12-13 07:29 | W.PC.ACHO ---
Registration Status: ADM IN Primary Language: Cypriot Preferred Language: Cypriot Active Medications Generic Name Dose Route Start Last Admin Trade Name Freq PRN Reason Stop Dose Admin Al Hydroxide/Mg Hydroxide 2,400 mg 12/12/22 08:29 Magnesium Hydroxide 2,400 Mg/10 Ml Oral.Susp PO Q6H PRN Dyspepsia Diphenhydramine HCl 25 mg 12/12/22 08:29 Diphenhydramine Hcl 50 Mg/Ml (1ml) Vial IV 12/13/22 08:32 Q6H PRN Itching Docusate Sodium 100 mg 12/13/22 09:00 Docusate Sodium 100 Mg Capsule PO BID JUSTIN Ibuprofen 800 mg 12/12/22 08:29 Ibuprofen 400 Mg Tablet PO Q8H PRN Pain Ketorolac Tromethamine 30 mg 12/12/22 08:29 12/13/22 03:06 Ketorolac Tromethamine 30 Mg/Ml Vial IVP 12/14/22 08:30 30 mg Q6H PRN Administration Pain Levothyroxine Sodium 175 mcg 12/13/22 06:30 Levothyroxine Sodium 175 Mcg Tablet PO ACB JUSTIN Methylergonovine Maleate 0.2 mg 12/12/22 05:36 Methylergonovine Maleate 0.2 Mg/Ml Ampule IM 12/13/22 08:00 ONCE PRN Uterine Contractility/Contract Methylergonovine Maleate 0.2 mg 12/12/22 05:36 Methylergonovine Maleate 0.2 Mg Tablet PO 12/13/22 08:00 Q4H PRN Uterine Contractility/Contract Misoprostol 600 mcg 12/12/22 05:36 Misoprostol 100 Mcg Tablet PO 12/13/22 08:00 ONCE PRN Uterine Bleeding Misoprostol 800 mcg 12/12/22 05:36 Misoprostol 100 Mcg Tablet SL 12/13/22 08:00 ONCE PRN Uterine Bleeding Misoprostol 1,000 mcg 12/12/22 05:36 Misoprostol 100 Mcg Tablet FL 12/13/22 08:00 ONCE PRN Uterine Bleeding Ondansetron HCl 4 mg 12/12/22 05:36 Ondansetron 4 Mg Rapdis Tablet SL Q6H PRN Nausea And Vomiting Ondansetron HCl 4 mg 12/12/22 08:29 Ondansetron Pf 4 Mg/2 Ml Vial IV Q6H PRN Nausea And Vomiting Oxycodone/Acetaminophen 1 tab 12/12/22 08:29 Oxycodone Hcl/Acetaminophen 5mg/325mg PO Q4H PRN Pain Scale 4-6 Oxycodone/Acetaminophen 2 tab 12/12/22 08:29 Oxycodone Hcl/Acetaminophen 5mg/325mg PO Q4H PRN Pain Scale 7-10 Senna 17.2 mg 12/12/22 20:00 Sennosides 8.6 Mg Tablet PO QHS PRN Constipation Simethicone 80 mg 12/12/22 08:29 Simethicone 80 Mg Tab.Chew PO QID PRN Abdominal Distention Diet Category Date Time Status Regular Consistency Diet Diet 12/12/22 08:30 Active Respiratory Lung sounds [Bilateral Upper clear Lobe] Lung sounds [Bilateral Upper clear Lobe] Lung sounds [Bilateral Upper clear Lobe] Pulse Oximetry 97 Pulse Oximetry 97 Pulse Oximetry 97 Pulse Oximetry 96 Pulse Oximetry 97 Pulse Oximetry 97 Pulse Oximetry 96 Pulse Oximetry 96 Pulse Oximetry 96 Pulse Oximetry 96 Pulse Oximetry 97 Pulse Oximetry 96 Pulse Oximetry 96 Pulse Oximetry 97 Pulse Oximetry 96 Pulse Oximetry 96 Oxygen Delivery Method Room Air Oxygen Delivery Method Room Air Oxygen Delivery Method Room Air Catheter Date Urinary Catheter Removed 12/13/22 [Urethral] Time Urinary Catheter 05:50 Discontinued [Urethral]
[2022-12-13 08:07] VITALS: BP 106/66; PULSE 86; RESP 14; TEMP 36.8
--- NOTE | 2022-12-13 09:04 | PM.OBPN ---
OB - PN: Subj Subjective Patient comments: no complaints and tolerating diet infant status: doing well feeding status: exclusively Exam Constitutional Vital Signs, click to edit/add: Last Vital Signs Temp 98.8 F 12/12/22 20:59 Pulse 86 12/13/22 08:07 Resp 16 12/13/22 04:30 BP 106/66 12/13/22 08:07 Pulse Ox 97 12/12/22 15:30 O2 Del Method Room Air 12/12/22 09:08 Documenting provider has reviewed patient's vital signs: yes Common normals: no apparent distress and oriented x3 General appearance: cooperative and comfortable HENMT Common normals: normocephalic Eye Common normals: PERRL and EOMs intact bilaterally General eye: normal appearance of both eyes Neck & C-Spine Common normals: full ROM Lymph Lymphatic: no lymphadenopathy noted Chest Common normals: inspection of chest normal Respiratory Common normals: normal respiratory effort and clear to auscultation bilaterally Cardio Common normals: no JVD, regular rate and regular rhythm Rate: regular rate Rhythm: regular rhythm GI Common normals: Normal to inspection, nondistended, normoactive bowel sounds present Common normals: no CVA tenderness Back & Pelvis Common normals: no CVA tenderness Extremity Common normals: normal to inspection and full ROM Neuro Common normals: oriented x3 and moves all extremities Sensorium/orientation: awake, alert, oriented to person, oriented to place and oriented to time Psych Common normals: mental status grossly normal, thought process normal, cooperative, affect normal and speech normal Results Labs Labs: Short CBC 12/13/22 Range/Units 05:40 WBC 21.3 H (4.0-11.0) 10^3/uL Hgb 9.2 L (12.0-16.0) g/dL Hct 28.3 L (36.0-48.0) % Plt Count 284 (150-450) 10^3/uL OB - PN: A/P Plan - Plan: routine postop care Time Spent with Patient Time: Total time spent is greater than 50% in coordination of care (as documented) at patient's floor/unit and/or counseling patient: Total time spent with greater than 50% in coordination of care (as documented) at patient's floor/unit and/or counseling patient: less than 15 minutes
[2022-12-13] MEDS: LEVOTHYROXINE SODIUM 175 MCG TABLET PO (10:04)
[2022-12-13] MEDS: DOCUSATE SODIUM 100 MG CAPSULE PO ×2 (10:04→22:26)
[2022-12-13] MEDS: FERROUS SULFATE 325 MG TABLET PO ×2 (10:04→22:26)
[2022-12-13] MEDS: IBUPROFEN 400 MG TABLET 800 MG PO ×2 (10:04→17:59)
[2022-12-13 15:50] VITALS: RESP 16; TEMP 36.8
[2022-12-13] MEDS: ACETAMINOPHEN 500 MG TABLET 1000 MG PO (16:13)
[2022-12-13 23:05] VITALS: BP 116/68; PULSE 91; RESP 16; TEMP 37.1
[2022-12-14] MEDS: IBUPROFEN 400 MG TABLET 800 MG PO ×3 (03:06→20:13)
--- NOTE | 2022-12-14 07:15 | W.PC.ACHO ---
Registration Status: ADM IN Primary Language: Kuwaiti Preferred Language: Kuwaiti Active Medications Generic Name Dose Route Start Last Admin Trade Name Freq PRN Reason Stop Dose Admin Acetaminophen 1,000 mg 12/13/22 16:03 12/13/22 16:13 Acetaminophen 500 Mg Tablet PO 1,000 mg Q6H PRN Administration Mild Pain Al Hydroxide/Mg Hydroxide 2,400 mg 12/12/22 08:29 Magnesium Hydroxide 2,400 Mg/10 Ml Oral.Susp PO Q6H PRN Dyspepsia Docusate Sodium 100 mg 12/13/22 09:00 12/13/22 22:26 Docusate Sodium 100 Mg Capsule PO 100 mg BID JUSTIN Administration Ferrous Sulfate 325 mg 12/13/22 09:15 12/13/22 22:26 Ferrous Sulfate 325 Mg Tablet PO 325 mg BID JUSTIN Administration Ibuprofen 800 mg 12/12/22 08:29 12/14/22 03:06 Ibuprofen 400 Mg Tablet PO 800 mg Q8H PRN Administration Pain Ketorolac Tromethamine 30 mg 12/12/22 08:29 12/13/22 03:06 Ketorolac Tromethamine 30 Mg/Ml Vial IVP 12/14/22 08:30 30 mg Q6H PRN Administration Pain Levothyroxine Sodium 175 mcg 12/13/22 06:30 12/13/22 10:04 Levothyroxine Sodium 175 Mcg Tablet PO 175 mcg ACB JUSTIN Administration Ondansetron HCl 4 mg 12/12/22 05:36 Ondansetron 4 Mg Rapdis Tablet SL Q6H PRN Nausea And Vomiting Ondansetron HCl 4 mg 12/12/22 08:29 Ondansetron Pf 4 Mg/2 Ml Vial IV Q6H PRN Nausea And Vomiting Oxycodone/Acetaminophen 1 tab 12/12/22 08:29 Oxycodone Hcl/Acetaminophen 5mg/325mg PO Q4H PRN Pain Scale 4-6 Oxycodone/Acetaminophen 2 tab 12/12/22 08:29 Oxycodone Hcl/Acetaminophen 5mg/325mg PO Q4H PRN Pain Scale 7-10 Senna 17.2 mg 12/12/22 20:00 Sennosides 8.6 Mg Tablet PO QHS PRN Constipation Simethicone 80 mg 12/12/22 08:29 Simethicone 80 Mg Tab.Chew PO QID PRN Abdominal Distention Respiratory Oxygen Delivery Method Room Air Oxygen Delivery Method Room Air Oxygen Delivery Method Room Air Oxygen Delivery Method Room Air Oxygen Delivery Method Room Air Cardiology Heart Sounds Strong,Regular Heart Sounds Strong,Regular Bowels Bowel Pattern No Bowel Movement Bowel Pattern No Bowel Movement Renal Bladder Pattern Continent Bladder Pattern Continent
[2022-12-14 07:35] VITALS: BP 119/80; PULSE 81; RESP 14; TEMP 37
--- NOTE | 2022-12-14 07:36 | P.OBPN_ITS ---
OB - PN: Subj Subjective Patient comments: no complaints [place] status: doing well and well Exam Constitutional Vital Signs, click to edit/add: Last Vital Signs Temp 98.8 F 12/13/22 23:05 Pulse 91 H 12/13/22 23:05 Resp 16 12/13/22 23:05 BP 116/68 12/13/22 23:05 Pulse Ox 97 12/12/22 15:30 O2 Del Method Room Air 12/13/22 23:05 Documenting provider has reviewed patient's vital signs: yes Common normals: no apparent distress Respiratory Common normals: normal respiratory effort and clear to auscultation bilaterally Cardio Common normals: regular rate and regular rhythm GI Common normals: Normal to inspection, nondistended, normoactive bowel sounds present Extremity Common normals: no clubbing, cyanosis or edema and no calf tenderness OB - PN: A/P Plan - day: 2 Plan: routine postop care Time Spent with Patient Time: Total time spent is greater than 50% in coordination of care (as documented) at patient's floor/unit and/or counseling patient: Total time spent with greater than 50% in coordination of care (as documented) at patient's floor/unit and/or counseling patient: less than 15 minutes
[2022-12-14] MEDS: LEVOTHYROXINE SODIUM 175 MCG TABLET PO (08:54)
[2022-12-14] MEDS: DOCUSATE SODIUM 100 MG CAPSULE PO ×2 (08:54→20:13)
[2022-12-14] MEDS: FERROUS SULFATE 325 MG TABLET PO ×2 (08:54→20:14)
[2022-12-14] MEDS: ACETAMINOPHEN 500 MG TABLET 1000 MG PO ×2 (13:54→22:38)
--- NOTE | 2022-12-14 15:14 | PC.NURSE ---
LC into room and talk with Makenna and . Parents are aware of weight loss of 11.4% and discussed options for supplementing NB feeding. Discussed LPI, feeding expectations, supply and demand for best supply. Verbalized understanding of all. We want what is best for her . 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 Discussed triple feeds and states will have at least 1 week off for help at home before returning to [facility]. Plan of care is to offer breast, spending 5-10 min on , then offering supplement of Sim Sensitive 20 ml to start and will increase up to 30-40 over next 24 hours. Discussed over feeding and regurg, wanting to eliminate if possible, but feeding infant enough volume to allow for weight gain and growth. Aware pumping is for stimulation as has only obtained a few drops with hand expression or pumping thus far. Currently using hospital grade Symphony pump and has obtained 3-7 drops at the most. Shown to slow pace bottle feed in side lying football hold to better mimic position for and watching for signs of distress while feeding, high shoulders, clenched hands, grimace or pulling away. Both parents are able to return demo. Both acceptable and engaged to feeding plan for . No further questions at this time.
[2022-12-14 15:35] VITALS: RESP 16
[2022-12-14 15:36] VITALS: TEMP 36.3
[2022-12-14 15:37] VITALS: BP 109/72; PULSE 89
[2022-12-14 15:57] VITALS: RESP 16
--- NOTE | 2022-12-14 20:16 | PC.NURSE ---
Pt is pumping at this time
[2022-12-14 23:14] VITALS: BP 129/82; PULSE 84; RESP 16; TEMP 36.8
--- NOTE | 2022-12-15 07:38 | P.OBPN_ITS ---
OB - PN: Subj Subjective Patient comments: no complaints and pain well controlled [place] status: doing well Exam Constitutional Vital Signs, click to edit/add: Last Vital Signs Temp 98.3 F 12/14/22 23:14 Pulse 84 12/14/22 23:14 Resp 16 12/14/22 23:14 BP 129/82 12/14/22 23:14 Pulse Ox 97 12/12/22 15:30 O2 Del Method Room Air 12/14/22 23:14 Documenting provider has reviewed patient's vital signs: yes Common normals: no apparent distress Respiratory Common normals: normal respiratory effort and clear to auscultation bilaterally Cardio Common normals: regular rate and regular rhythm GI Common normals: Normal to inspection, nondistended, normoactive bowel sounds present Extremity Common normals: normal to inspection and no calf tenderness OB - PN: A/P Plan - day: 3 Plan: routine postop care, discharge home and follow up 6 weeks Time Spent with Patient Time: Total time spent is greater than 50% in coordination of care (as documented) at patient's floor/unit and/or counseling patient: Total time spent with greater than 50% in coordination of care (as documented) at patient's floor/unit and/or counseling patient: less than 15 minutes
--- NOTE | 2022-12-15 08:08 | W.PC.ACHO ---
Registration Status: ADM IN Primary Language: Grenadian Preferred Language: Grenadian Report given. Care relinguished Active Medications Generic Name Dose Route Start Last Admin Trade Name Anandq PRN Reason Stop Dose Admin Acetaminophen 1,000 mg 12/13/22 16:03 12/14/22 22:38 Acetaminophen 500 Mg Tablet PO 1,000 mg Q6H PRN Administration Mild Pain Al Hydroxide/Mg Hydroxide 2,400 mg 12/12/22 08:29 Magnesium Hydroxide 2,400 Mg/10 Ml Oral.Susp PO Q6H PRN Dyspepsia Docusate Sodium 100 mg 12/13/22 09:00 12/14/22 20:13 Docusate Sodium 100 Mg Capsule PO 100 mg BID JUSTIN Administration Ferrous Sulfate 325 mg 12/13/22 09:15 12/14/22 20:14 Ferrous Sulfate 325 Mg Tablet PO 325 mg BID JUSTIN Administration Ibuprofen 800 mg 12/12/22 08:29 12/14/22 20:13 Ibuprofen 400 Mg Tablet PO 800 mg Q8H PRN Administration Pain Levothyroxine Sodium 175 mcg 12/13/22 06:30 12/14/22 08:54 Levothyroxine Sodium 175 Mcg Tablet PO 175 mcg ACB JUSTIN Administration Ondansetron HCl 4 mg 12/12/22 05:36 Ondansetron 4 Mg Rapdis Tablet SL Q6H PRN Nausea And Vomiting Ondansetron HCl 4 mg 12/12/22 08:29 Ondansetron Pf 4 Mg/2 Ml Vial IV Q6H PRN Nausea And Vomiting Oxycodone/Acetaminophen 1 tab 12/12/22 08:29 Oxycodone Hcl/Acetaminophen 5mg/325mg PO Q4H PRN Pain Scale 4-6 Oxycodone/Acetaminophen 2 tab 12/12/22 08:29 Oxycodone Hcl/Acetaminophen 5mg/325mg PO Q4H PRN Pain Scale 7-10 Senna 17.2 mg 12/12/22 20:00 Sennosides 8.6 Mg Tablet PO QHS PRN Constipation Simethicone 80 mg 12/12/22 08:29 Simethicone 80 Mg Tab.Chew PO QID PRN Abdominal Distention Respiratory Oxygen Delivery Method Room Air Oxygen Delivery Method Room Air Oxygen Delivery Method Room Air Cardiology Heart Sounds Strong,Regular Bowels Bowel Pattern No Bowel Movement Date of Last Bowel Movement 12/14/22 Renal Bladder Pattern Continent
[2022-12-15 08:20] VITALS: BP 131/84; PULSE 86; RESP 14; TEMP 36.3
--- NOTE | 2022-12-15 10:28 | PC.NURSE ---
LC into room, father currently holding sleeping baby while mom pumping. Both are smiling and states much better morning today . Refers to infant up in weight, mom is now pumping 15-20 ml every 2-3 hours and volume continues to increase. Sttes baby continues to latch at the breast with shield and is now actively nursing 5 minutes and swallows noted by parents. Baby is then offered pumped milk via bottle and is taking 15-20ml and sometimes having formula as well. Total volume intake for baby is between 25-35 ml per feed. Parents happy with feeding plan. Will offer breast with or without shield as baby is willing, nurse (active nursing identified)for up to 10 min per side and then offer easy milk as baby requires. Parents aware to decrease use of formula as mom's own milk volume increases and very agreeable to just giving breast milk when able. Plan is to continue skin to skin and return baby to breast for full feeding when shows signs of maturity and willingness as well as stamina. Follow up visit planned for 12/20/2022 at 1245. Aware to call for concerns prior to then if needed.
--- NOTE | 2022-12-22 | DS_ITS ---
DISCHARGE DATE: ??12/22/2022 PRIMARY DIAGNOSES: 1.? Intrauterine at 36 weeks. 2.? Intrauterine growth restriction. 3.? Oligohydramnios. 4.? Breech presentation. PROCEDURE:? Primary low transverse section. HOSPITAL COURSE:? As expected.? Please see chart for full details.? LABORATORY DATA:? Please see chart. COMPLICATIONS:? None. DISCHARGE CONDITION:? Stable. CONSULTATION:? Anesthesia. DISCHARGE INSTRUCTIONS: 1.? Diet:? Regular. 2.? Medications: a.? Percocet 5/325 one to two p.o. every 4-6 hours p.r.n. pain. b.? Motrin 800 one p.o. every 8 hours p.r.n. pain. 3.? Followup in one week. Restrictions:? Pelvic rest for 6 weeks.? No heavy lifting.? May drive when pain free and no longer on narcotics. MTDD
== END 2022-12-15 12:20 | disposition home or self-care (01) | DRG 787 ==
PROVIDERS: Admitting Provider Obstetrics & Gynecology; PCP Family Medicine; Visit Provider Obstetrics & Gynecology
PROC: 10D00Z1 Extraction of Products of Conception, Low, Open Approach (ICD-10-PCS; CPT 59514; principal; 2022-12-12 07:30)
DX: O32.1XX0 Maternal care for breech presentation, not applicable or unspecified (principal); O41.03X0 Oligohydramnios, third trimester, not applicable or unspecified; O99.02 Anemia complicating childbirth; D64.9 Anemia, unspecified; O99.52 Diseases of the respiratory system complicating childbirth; J45.909 Unspecified asthma, uncomplicated; O99.284 Endocrine, nutritional and metabolic diseases complicating childbirth; E06.3 Autoimmune thyroiditis; Z3A.36 36 weeks gestation of pregnancy; Z37.0 Single live birth; Z79.890 Hormone replacement therapy; Z79.84 Long term (current) use of oral hypoglycemic drugs; Z79.899 Other long term (current) drug therapy; Z88.2 Allergy status to sulfonamides; Z83.3 Family history of diabetes mellitus; Z82.3 Family history of stroke; Z82.49 Family history of ischemic heart disease and other diseases of the circulatory system
CPT/HCPCS: 36415; 51702; 80307; 85025; 85027; 86850; 86900; 86901; 88307; 94667; 94668; 96374; 96375; 96376

== ENCOUNTER 2022-12-21 08:45 | Outpatient (OUT) | payer OTHER, SELFPAY ==
[2022-12-21 13:10] VITALS: BP 115/84; PULSE 115; RESP 20; TEMP 36.7; O2SAT 96
== END 2022-12-21 13:15 | disposition home or self-care (01) ==
LOC: FBCO 08:47
PROVIDERS: PCP Family Medicine; Visit Provider Obstetrics & Gynecology
DX: Z39.2 Encounter for routine postpartum follow-up (principal)

== ENCOUNTER 2022-12-28 08:46 | Outpatient (OUT) | payer OTHER, SELFPAY ==
--- NOTE | 2022-12-28 10:14 | PC.NURSE ---
Arrives for support. Has been breast feeding, right breast with limited supply (pumps 20 ml max) but baby latches easily to right breast. Left breast greater supply ( 50-70 ml pumping) difficult latch and uses shield as generally fights and pushes at breast during latch. Has noticed infant likes to keep head turned to left shoulder even when repositioned returns to left shoulder. Face asymmetric, sutures continue to over lap. Baby was C/S for breech and Oligo at 36 weeks. Mom inquires about chiropractor for baby to help. Discussed value of bodywork and available resources list given. No further questions at this time.
== END 2022-12-28 10:00 | disposition home or self-care (01) ==
PROVIDERS: PCP Family Medicine; Visit Provider Obstetrics & Gynecology
DX: Z39.1 Encounter for care and examination of lactating mother (principal)
CPT/HCPCS: G0463

== ENCOUNTER 2023-01-19 19:37 | Observation (INO) | payer OTHER, SELFPAY ==
[2023-01-19 19:49] VITALS: BP 118/65; PULSE 96
[2023-01-19 20:00] VITALS: RESP 18
[2023-01-19] MEDS: 0.9 % SODIUM CHLORIDE 1,000 ML 125 ML IV (20:00)
[2023-01-19] MEDS: KETOROLAC TROMETHAMINE 30 MG/ML VIAL IVP (20:00)
[2023-01-19 20:22] LABS: Alanine Aminotransferase 12 U/L (14-59); Aspartate Amino Transferase 12 U/L (15-37); Estimated GFR (African America >60 (>=60); Estimated GFR (Non-African Ame >60 (>=60)
[2023-01-19] MEDS: CEFAZOLIN SODIUM/DEXTROSE,ISO 2 GM/50 ML PIGGYBACK IV (20:32)
[2023-01-20] VITALS (9 sets, daily range): BP systolic 99–118; BP diastolic 57–71; PULSE 76–88; RESP 16; TEMP 36.8–37.4
[2023-01-20] MEDS: KETOROLAC TROMETHAMINE 30 MG/ML VIAL IVP ×4 (02:11→20:20)
[2023-01-20] MEDS: CEFAZOLIN SODIUM/DEXTROSE,ISO 2 GM/50 ML PIGGYBACK IV ×3 (04:08→20:21)
[2023-01-20] MEDS: VANCOMYCIN HCL 1,000 MG in 0.9 % SODIUM CHLORIDE 250 ML 250 MG IV ×3 (04:45→21:43)
[2023-01-20] MEDS: ACETAMINOPHEN 500 MG TABLET 1000 MG PO ×4 (04:48→23:40)
[2023-01-20] MEDS: 0.9 % SODIUM CHLORIDE 1,000 ML 125 ML IV ×2 (06:54→16:21)
--- NOTE | 2023-01-20 07:21 | W.PC.ACHO ---
Registration Status: ADM AMINTA Primary Language: Preferred Language: Active Medications Generic Name Dose Route Start Last Admin Trade Name Freq PRN Reason Stop Dose Admin Acetaminophen 1,000 mg 01/19/23 19:45 01/20/23 04:48 Acetaminophen 500 Mg Tablet PO 1,000 mg Q6H PRN Administration Pain Scale 1-3 Hydrocodone Bitart/Acetaminophen 1 tab 01/20/23 07:03 Hydrocodone/Acet 5-325 Mg Tablet PO QID PRN Pain Scale 1-3 Sodium Chloride 1,000 mls @ 125 mls/hr 01/19/23 19:45 01/20/23 06:54 Sodium Chloride 0.9% 1,000 Ml IV 125 mls/hr .Q8H JUSTIN Administration Vancomycin HCl 1,000 mg/ 250 mls @ 250 mls/hr 01/20/23 05:00 01/20/23 04:45 Sodium Chloride IV 250 mls/hr Q8H JUSTIN Administration Cefazolin Sodium/Dextrose 2 gm in 50 mls @ 100 mls/hr 01/20/23 04:00 01/20/23 04:08 Ancef IV 100 mls/hr Q8H JUSTIN Administration Ketorolac Tromethamine 30 mg 01/19/23 19:45 01/20/23 02:11 Ketorolac Tromethamine 30 Mg/Ml Vial IVP 30 mg Q6H PRN Administration Pain Scale 1-3 Diet Category Date Time Status Regular Consistency Diet Diet 01/19/23 19:53 Active Respiratory Oxygen Delivery Method Room Air Oxygen Delivery Method Room Air Cardiology Heart Sounds Strong,Regular Heart Sounds Strong,Regular Renal Bladder Pattern Continent Bladder Pattern Continent
[2023-01-20 07:36] LABS: Basophils Percent Auto 0.3 % (0.2-2.0); Eosinophils Absolute Auto 0.2 10^3/uL (0.0-0.7); Eosinophils Percent Auto 1.1 % (0.9-7.0); Hematocrit 34.3 % (36.0-48.0); Hemoglobin 11.1 g/dL (12.0-16.0); Immature Granulocytes Abs Auto 0.06 10^3/uL (0.00-0.03); Immature Granulocytes Pct Auto 0.4 % (0.0-0.5); Lymphocytes Percent Auto 12.9 % (20.5-60.0); Mean Corpuscular HGB Conc 32.4 g/dL (29.9-35.2); Mean Corpuscular Hemoglobin 27.8 pg (26.7-34.0); Mean Corpuscular Volume 85.8 fL (81.0-99.0); Mean Platelet Volume 9.5 fL (9.5-13.5); Monocytes Absolute Auto 1.3 10^3/uL (0.3-0.8); Monocytes Percent Auto 8.7 % (1.7-12.0); Neutrophils Absolute Auto 11.9 10^3/uL (1.4-6.5); Neutrophils Percent Auto 76.6 % (43.0-75.0); Platelet Count 336 10^3/uL (150-450); Red Cell Distribution Width 13.5 % (11.0-15.0); White Blood Count 15.5 10^3/uL (4.0-11.0)
--- NOTE | 2023-01-20 07:37 | PM.GYNPN2 ---
WELLNESS GUIDE - PN: Subj Non-OR Interval history: 27 yo presented lt breast mastitis, pt states had fever and chills at home, otherwise doing well Exam Constitutional Vital Signs, click to edit/add: Last Vital Signs Pulse 88 01/20/23 00:29 Resp 16 01/20/23 00:34 BP 114/71 01/20/23 00:29 O2 Del Method Room Air 01/20/23 00:34 Documenting provider has reviewed patient's vital signs: yes Common normals: no apparent distress Chest Breast/axilla inspection: normal inspection of the axillae and abnormal inspection of the breast (lt breast swollen and slightly erythematous) Respiratory Common normals: normal respiratory effort and clear to auscultation bilaterally Cardio Common normals: regular rate and regular rhythm GI Common normals: Normal to inspection, nondistended, normoactive bowel sounds present Extremity Common normals: no clubbing, cyanosis or edema and no calf tenderness Results Labs Labs: BMP 01/19/23 20:02 BUN 13.0 Creatinine 1.02 Liver Function 01/19/23 Range/Units 20:02 AST 12 L (15-37) U/L ALT 12 L (14-59) U/L WELLNESS GUIDE - A/P Assessment and Plan (1) Mastitis: Plan lt breast mastitis-cont iv abx, will switch to oral abx, cont supportative care Fall Risk Details Current medications: Current Medications Acetaminophen (Acetaminophen 500 Mg Tablet) 1,000 mg PO Q6H PRN PRN Reason: Pain Scale 1-3 Last Admin: 01/20/23 04:48 Dose: 1,000 mg Hydrocodone Bitart/Acetaminophen (Hydrocodone/Acet 5-325 Mg Tablet) 1 tab PO QID PRN PRN Reason: Pain Scale 1-3 Sodium Chloride (Sodium Chloride 0.9% 1,000 Ml) 1,000 mls @ 125 mls/hr IV .Q8H [facility] Last Admin: 01/20/23 06:54 Dose: 125 mls/hr Vancomycin HCl 1,000 mg/ (Sodium Chloride) 250 mls @ 250 mls/hr IV Q8H [facility] Last Admin: 01/20/23 04:45 Dose: 250 mls/hr Cefazolin Sodium/Dextrose (Ancef) 2 gm in 50 mls @ 100 mls/hr IV Q8H [facility] Last Admin: 01/20/23 04:08 Dose: 100 mls/hr Ketorolac Tromethamine (Ketorolac Tromethamine 30 Mg/Ml Vial) 30 mg IVP Q6H PRN PRN Reason: Pain Scale 1-3 Last Admin: 01/20/23 02:11 Dose: 30 mg Time Spent With Patient Time: Total time spent is greater than 50% in coordination of care (as documented) at patient's floor/unit and/or counseling patient: Time with patient: 25 - 35 minutes
[2023-01-20 07:50] LABS: Alanine Aminotransferase 18 U/L (14-59); Albumin Globulin Ratio 0.7; Albumin Level 2.7 g/dL (3.4-5.0); Alkaline Phosphatase 108 U/L (46-116); Anion Gap 15.7; Aspartate Amino Transferase 10 U/L (15-37); BUN Creatinine Ratio 7.6; Bilirubin Total 0.4 mg/dL (0.2-1.0); Calcium 8.6 mg/dL (8.5-10.1); Carbon Dioxide 23.2 mmol/L (21.0-32.0); Chloride 107 mmol/L (98-107); Estimated GFR (African America >60 (>=60); Estimated GFR (Non-African Ame >60 (>=60); Globulin 4.1 g/dL; Glucose 96 mg/dL (74-106); Potassium 3.9 mmol/L (3.5-5.1); Sodium 142 mmol/L (136-145); Total Protein 6.8 g/dL (6.4-8.2)
--- NOTE | 2023-01-20 07:53 | US_ITS ---
Patient Name: KEYSHA HOGAN MR#: [id number] : 1995 Exam Date: 01/20/2023 Ordering Doctor: DR Gigi Tafoya . RADIOLOGY REPORT PROCEDURE: US BREAST LT COMPLETE COMPARISON: US BREAST LT LIMITED, 01/21/2023. INDICATIONS: mastitis of left breast x 10 days TECHNIQUE: Breast ultrasound was performed, with evaluation focusing only on specific areas of concern. FINDINGS: DIAGNOSTIC CATEGORY 3--PROBABLY BENIGN FINDING. THE FOLLOWING FINDING(S) HAS A HIGH PROBABILITY OF A BENIGN ETIOLOGY: LEFT BREAST: Lobular heterogeneous hypoechoic area within left breast, 11 o'clock, 5.7 x 3.5 x 6.0 cm with surrounding hypervascularity suggestive of an abscess. (Preliminary findings were provided on January 20, 2023) Partially circumscribed 2.0 cm nodule at the 2 o'clock position suspected to represent a fibroadenoma; follow-up ultrasound evaluation after resolution of mastitis/abscess is recommended. Benign-appearing 1.2 cm cyst at 4 o'clock position. RECOMMENDATIONS: SHORT TERM FOLLOW-UP ULTRASOUND LEFT BREAST IN 2 MONTHS. PLEASE NOTE: A NORMAL ULTRASOUND EXAMINATION DOES NOT EXCLUDE THE POSSIBILITY OF BREAST CANCER. A CLINICALLY SUSPICIOUS PALPABLE LUMP SHOULD BE BIOPSIED. Dictated by: Obi Plascencia M.D. on 01/23/2023 at 09:45 Approved by: Obi Plascencia M.D. on 01/23/2023 at 10:09
[2023-01-20] MEDS: ONDANSETRON PF 4 MG/2 ML VIAL IV ×2 (13:37→22:30)
--- NOTE | 2023-01-20 19:32 | W.PC.ACHO ---
Registration Status: ADM AMINTA Primary Language: Preferred Language: Active Medications Generic Name Dose Route Start Last Admin Trade Name Sheri PRN Reason Stop Dose Admin Acetaminophen 1,000 mg 01/19/23 19:45 01/20/23 17:28 Acetaminophen 500 Mg Tablet PO 1,000 mg Q6H PRN Administration Pain Scale 1-3 Hydrocodone Bitart/Acetaminophen 1 tab 01/20/23 07:03 Hydrocodone/Acet 5-325 Mg Tablet PO QID PRN Pain Scale 1-3 Sodium Chloride 1,000 mls @ 125 mls/hr 01/19/23 19:45 01/20/23 16:21 Sodium Chloride 0.9% 1,000 Ml IV 125 mls/hr .Q8H JUSTIN Administration Vancomycin HCl 1,000 mg/ 250 mls @ 250 mls/hr 01/20/23 05:00 01/20/23 13:37 Sodium Chloride IV 250 mls/hr Q8H JUSTIN Administration Cefazolin Sodium/Dextrose 2 gm in 50 mls @ 100 mls/hr 01/20/23 04:00 01/20/23 12:40 Ancef IV 100 mls/hr Q8H JUSTIN Administration Ketorolac Tromethamine 30 mg 01/19/23 19:45 01/20/23 14:45 Ketorolac Tromethamine 30 Mg/Ml Vial IVP 30 mg Q6H PRN Administration Pain Scale 1-3 Ondansetron HCl 4 mg 01/20/23 13:28 01/20/23 13:37 Ondansetron Pf 4 Mg/2 Ml Vial IV 4 mg Q6H PRN Administration Nausea Diet Category Date Time Status NPO Diet Diet 01/21/23 00:01 Active Regular Consistency Diet Diet 01/19/23 19:53 Active Consults Category Date Time Status Consult to General Surgeon Routine Cons 01/20/23 Ordered Respiratory Oxygen Delivery Method Room Air Oxygen Delivery Method Room Air Oxygen Delivery Method Room Air Cardiology Heart Sounds Strong,Regular Heart Sounds Strong,Regular Renal Bladder Pattern Continent Bladder Pattern Continent
[2023-01-21] MEDS: KETOROLAC TROMETHAMINE 30 MG/ML VIAL IVP ×3 (02:10→14:29)
[2023-01-21] MEDS: 0.9 % SODIUM CHLORIDE 1,000 ML 125 ML IV ×2 (02:10→12:31)
[2023-01-21 04:37] VITALS: BP 117/63; PULSE 66; TEMP 37
[2023-01-21] MEDS: CEFAZOLIN SODIUM/DEXTROSE,ISO 2 GM/50 ML PIGGYBACK IV ×2 (04:37→12:37)
[2023-01-21] MEDS: VANCOMYCIN HCL 1,000 MG in 0.9 % SODIUM CHLORIDE 250 ML 250 MG IV ×2 (05:21→13:16)
[2023-01-21 05:23] LABS: Basophils Absolute Auto 0.1 10^3/uL (0.0-0.1); Basophils Percent Auto 0.3 % (0.2-2.0); Eosinophils Absolute Auto 0.3 10^3/uL (0.0-0.7); Eosinophils Percent Auto 1.6 % (0.9-7.0); Hematocrit 32.9 % (36.0-48.0); Hemoglobin 10.5 g/dL (12.0-16.0); Immature Granulocytes Abs Auto 0.13 10^3/uL (0.00-0.03); Immature Granulocytes Pct Auto 0.8 % (0.0-0.5); Lymphocytes Absolute Auto 1.7 10^3/uL (1.2-3.8); Lymphocytes Percent Auto 10.3 % (20.5-60.0); Mean Corpuscular HGB Conc 31.9 g/dL (29.9-35.2); Mean Corpuscular Hemoglobin 27.6 pg (26.7-34.0); Mean Corpuscular Volume 86.6 fL (81.0-99.0); Mean Platelet Volume 9.8 fL (9.5-13.5); Monocytes Absolute Auto 1.5 10^3/uL (0.3-0.8); Monocytes Percent Auto 8.9 % (1.7-12.0); Neutrophils Absolute Auto 12.9 10^3/uL (1.4-6.5); Neutrophils Percent Auto 78.1 % (43.0-75.0); Platelet Count 311 10^3/uL (150-450); Red Cell Distribution Width 13.6 % (11.0-15.0); White Blood Count 16.5 10^3/uL (4.0-11.0)
[2023-01-21] MEDS: ACETAMINOPHEN 500 MG TABLET 1000 MG PO ×2 (05:31→12:31)
[2023-01-21 06:35] LABS: Vancomycin Trough 12.1 ug/mL (5.0-20.0)
[2023-01-21 08:37] VITALS: BP 114/69; PULSE 62
[2023-01-21 08:48] VITALS: RESP 16; TEMP 36.7
--- NOTE | 2023-01-21 09:08 | PM.GYNPN2 ---
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 AND DRAMA TEACHER - PN: Subj Non-OR Interval history: 27 yo presented lt breast mastitis, pt states had fever and chills at home, otherwise doing well Post-Op Interval history: 27 yo presented lt breast mastitis, pt states had fever and chills at home, otherwise doing well Subjective: patient reports feeling better and pain is well controlled Exam Constitutional Vital Signs, click to edit/add: Last Vital Signs Temp 98.0 F 01/21/23 08:48 Pulse 62 01/21/23 08:37 Resp 16 01/21/23 08:48 BP 114/69 01/21/23 08:37 O2 Del Method Room Air 01/21/23 08:48 Documenting provider has reviewed patient's vital signs: yes Common normals: no apparent distress Respiratory Common normals: normal respiratory effort and clear to auscultation bilaterally Cardio Common normals: regular rate and regular rhythm GI Common normals: Normal to inspection, nondistended, normoactive bowel sounds present Extremity Common normals: no clubbing, cyanosis or edema and no calf tenderness Results Labs Labs: Short CBC 01/21/23 Range/Units 05:07 WBC 16.5 H (4.0-11.0) 10^3/uL Hgb 10.5 L (12.0-16.0) g/dL Hct 32.9 L (36.0-48.0) % Plt Count 311 (150-450) 10^3/uL SPEECH AND DRAMA TEACHER - A/P Assessment and Plan (1) Mastitis: Assessment and Plan: ultrasound reviewed showing abscess, labs reviewed, awaiting gen surgery consult, cont iv abx, cont pain control Fall Risk Details Current medications: Current Medications Acetaminophen (Acetaminophen 500 Mg Tablet) 1,000 mg PO Q6H PRN PRN Reason: Pain Scale 1-3 Last Admin: 01/21/23 05:31 Dose: 1,000 mg Hydrocodone Bitart/Acetaminophen (Hydrocodone/Acet 5-325 Mg Tablet) 1 tab PO QID PRN PRN Reason: Pain Scale 1-3 Sodium Chloride (Sodium Chloride 0.9% 1,000 Ml) 1,000 mls @ 125 mls/hr IV .Q8H [facility] Last Admin: 01/21/23 02:10 Dose: 125 mls/hr Vancomycin HCl 1,000 mg/ (Sodium Chloride) 250 mls @ 250 mls/hr IV Q8H [facility] Last Admin: 01/21/23 05:21 Dose: 250 mls/hr Cefazolin Sodium/Dextrose (Ancef) 2 gm in 50 mls @ 100 mls/hr IV Q8H [facility] Last Admin: 01/21/23 04:37 Dose: 100 mls/hr Ketorolac Tromethamine (Ketorolac Tromethamine 30 Mg/Ml Vial) 30 mg IVP Q6H PRN PRN Reason: Pain Scale 1-3 Last Admin: 01/21/23 08:38 Dose: 30 mg Ondansetron HCl (Ondansetron Pf 4 Mg/2 Ml Vial) 4 mg IV Q6H PRN PRN Reason: Nausea Last Admin: 01/20/23 22:30 Dose: 4 mg Time Spent With Patient Time: Total time spent is greater than 50% in coordination of care (as documented) at patient's floor/unit and/or counseling patient: Time with patient: less than 15 minutes
[2023-01-21] MEDS: OXYCODONE HCL 5 MG TABLET 2.5 MG PO (09:46)
[2023-01-21] MEDS: ONDANSETRON PF 4 MG/2 ML VIAL IV (10:59)
--- NOTE | 2023-01-21 12:57 | PC.NURSE ---
1030 Dr. Tafoya phones in to speak to nursing staff, states he spoke with Dr. Bernard about surgical consult and potential procedure today. Per Dr. Bernard, patient allowed to come off NPO status, he will be in to see patient and perform ultrasound guided aspiration procedure with local anesthetic. Nursing staff to consult with OR staff and ultrasound to coordinate arrival with Dr. Bernard. [address] Bernard regarding procedure and plan to see and assess patient. Discussed plan of care with physician, physician states plan for ultrasound guided aspiration at 1300 today. Patient to come off NPO status. RN coordinates with OR staff and elevator service technician. 1058 RN at bedside discussing plan of care, including general surgeon to arrive today at 1300 and discuss plan of care with patient and . patient verbalizes understanding, no further questions at this time. 1250 OR staff and ultrasound in department, awaiting surgeon arrival.
--- NOTE | 2023-01-21 13:20 | US_ITS ---
Patient Name: KEYSHA HOGAN MR#: [id number] : 1995 Exam Date: 01/21/2023 Ordering Doctor: DR Gigi Tafoya . RADIOLOGY REPORT PROCEDURE: US BREAST LT LIMITED COMPARISON: None. INDICATIONS: procedure TECHNIQUE: Breast ultrasound was performed, with evaluation focusing only on specific areas of concern. FINDINGS: DIAGNOSTIC CATEGORY 3--PROBABLY BENIGN FINDING. THE FOLLOWING FINDING(S) HAS A HIGH PROBABILITY OF A BENIGN ETIOLOGY: LEFT BREAST: 5 still-images were presented for review and demonstrate aspiration of a small amount of contents from heterogeneous area within left breast 11 o'clock position suspected to represent an abscess. Aspiration was performed by Dr. Bernard. RECOMMENDATIONS: SHORT TERM FOLLOW-UP ULTRASOUND LEFT BREAST IN 2 MONTHS. Pathology results are pending. PLEASE NOTE: A NORMAL ULTRASOUND EXAMINATION DOES NOT EXCLUDE THE POSSIBILITY OF BREAST CANCER. A CLINICALLY SUSPICIOUS PALPABLE LUMP SHOULD BE BIOPSIED. Dictated by: Obi Plascencia M.D. on 01/23/2023 at 10:09 Approved by: Obi Plascencia M.D. on 01/23/2023 at 10:13
--- NOTE | 2023-01-21 13:23 | PC.NURSE ---
6710 Dr. Shakeel Bernard at bedside, discusses plan of care with patient.
--- NOTE | 2023-01-21 15:05 | PC.NURSE ---
1346 Dr. Bernard performs bedside ultrasound-guided aspiration under local anesthetic as documented. Patient tolerates procedure well, culture of abscess drainage collected to send for gram stain and culture and sensitivity. Orders recieved that patient may be discharged home on oral antibiotics as prescribed by Dr. Tafoya.
--- NOTE | 2023-01-21 15:23 | PM.GSCN ---
History of Present Illness Consult details Consult date: 01/21/23 Reason for consult: other (Left Breast Mastitis with abscess) Requesting physician: Gigi Tafoya Narrative: This patient is a 27 y/o WF, several weeks post- and breast feeding, who presents with a 2 week history of worsening left breast pain, swelling and redness. An U/S was done yesterday which shows a likely left breast abscess. Review of Systems ROS Constitutional Reports: other (Negative) Eyes Reports: other (Negative) Cardiovascular Reports: other (Denies SOB, CP, leg swelling) Respiratory Reports: other (Denies cough, wheezing, SOB) Gastrointestinal Reports: other (Denies N & V, anorexia, rectal bleeding, melena) Genitourinary Reports: other (Negative) Musculoskeletal Reports: other (Negative) Integumentary/Breast Reports: other (See HPI) Neurological Reports: other (Negative) Psychiatric Reports: other (Negative) Endocrine Reports: other (Monica's thyroiditis) Hematologic/Lymphatic Reports: other (Negative) Allergic/Immunologic Reports: hives PFSH [facility] Medical History (Updated 01/20/23 @ 07:44 by Gigi Tafoya, DO) Asthma ?J45.909 - Unspecified asthma, uncomplicated (ICD-10) 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 (ICD-10) Surgical History (Updated 12/12/22 @ 06:02 by Stephenie Almaraz RN) H/O foot surgery ?Z98.890 - Other specified postprocedural states (ICD-10) History of kidney surgery ?Z98.890 - Other specified postprocedural states (ICD-10) Family History (Updated 12/12/22 @ 06:04 by Stephenie Almaraz RN) Grandfather Family history of diabetes mellitus Family history of hypertension Family history of myocardial infarction Family history of stroke Grandmother Family history of cancer Family history of diabetes mellitus Grandmother Family history of cancer Family history of diabetes mellitus Father Family history of myocardial infarction Meds Home Medications and Allergies Home Medications Medication Instructions Recorded Confirmed Type aspirin 81 mg chewable tablet 81 mg PO DAILY 10/26/22 01/20/23 History (Aspirin Childrens) levothyroxine 175 mcg tablet 175 mcg PO QDAY 10/26/22 01/20/23 History polysaccharide iron complex 180 mg 180 mg PO .qd 10/26/22 01/20/23 History iron capsule (Pro Fe) ibuprofen 800 mg tablet 800 mg PO Q8H PRN pain 14 days #40 12/15/22 01/20/23 Rx tabs cephalexin 500 mg capsule 500 mg PO QID 10 days #40 caps 01/20/23 Rx cephalexin 500 mg capsule 500 mg PO QID 10 days #40 caps 01/20/23 Rx clindamycin HCl 300 mg capsule 300 mg PO TID 7 days #21 caps 01/20/23 Rx (Cleocin HCl) sulfamethoxazole 800 1 tab PO BID 14 days #28 tabs 01/20/23 Rx mg-trimethoprim 160 mg tablet (Bactrim DS) Allergies Allergy/AdvReac Type Severity Reaction Status Date / Time Sulfa (Sulfonamide Allergy Severe Hives Verified 10/26/22 17:14 Antibiotics) Exam Constitutional Vital Signs, click to edit/add: Last Vital Signs Temp 98.0 F 01/21/23 08:48 Pulse 62 01/21/23 08:37 Resp 16 01/21/23 08:48 BP 114/69 01/21/23 08:37 O2 Del Method Room Air 01/21/23 08:48 Other: WD, WN WF, AAO x 3, in NAD, pleasant and cooperative [facility] Other: NC/AT Eye Other: EOMI, no scleral icterus Chest Breast/axilla inspection: abnormal inspection of the breast Other: The left breast is enlarged with erythema involving the upper half extending laterally , very tender on palpation, with a palpable fullness at 11-12 o'clock Respiratory Other: Breathing and speaking comfortably Extremity Other: No edema, FROM Neuro [place] Coma Scale: document GCS findings (GCS-15) Psych Other: Normal mood and affect; good recent and remote memory Results Labs Labs: Abnormal lab results 01/21/23 Range/Units 05:07 WBC 16.5 H (4.0-11.0) 10^3/uL RBC 3.80 L (4.20-5.40) 10^6/uL Hgb 10.5 L (12.0-16.0) g/dL Hct 32.9 L (36.0-48.0) % Neut % (Auto) 78.1 H (43.0-75.0) % Lymph % (Auto) 10.3 L (20.5-60.0) % Neut # (Auto) 12.9 H (1.4-6.5) 10^3/uL [place] # (Auto) 1.5 H (0.3-0.8) 10^3/uL Abs Immat Gran (auto) 0.13 H (0.00-0.03) 10^3/uL Imm/Tot Granulo (auto) 0.8 H (0.0-0.5) % All other labs normal. Imaging Additional studies: Left Breast U/S Assessment and Plan Assessment and Plan (1) Mastitis: Assessment and Plan: Left Breast Mastitis with abscess. Plan U/S Guided aspiration at bedside. Procedure note: Following discussion of options with the patient, the left breast was scanned with the assistance of the U/S residential service technician to identify an appropriate entry point in the upper left breast, following which the skin was prepped with Betadine. The entry site was anesthetized with 1% plain Lidocaine, following which a 14 gauge IV angiocath was insertion under U/S guidance into the abscess collection and approximately 50 cc's of pus was obtained. The cavity was minimally irrigated with saline and further aspirated. Some of the initial aspirate was sent for gram stain and culture. The patient noted immediate relief of pre-op symptoms and tolerated the procedure well. There were no complications and no blood loss. She is OK for D/C to home today from the Surgery standpoint and should F/U with Dr. Washington in his office in 1-2 weeks. P.O. antibiotics should be continued for 5-7 days to cover Staph and Strep until gram stain and culture results are available. Clinically doing well. OK to continue breast feeding.
--- NOTE | 2023-01-21 15:50 | PM.GSCN ---
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 (ICD-10) Surgical History (Updated 12/12/22 @ 06:02 by Stephenie Almaraz RN) H/O foot surgery ?Z98.890 - Other specified postprocedural states (ICD-10) History of kidney surgery ?Z98.890 - Other specified postprocedural states (ICD-10) Family History (Updated 12/12/22 @ 06:04 by Stephenie Almaraz RN) Grandfather Family history of diabetes mellitus Family history of hypertension Family history of myocardial infarction Family history of stroke Grandmother Family history of cancer Family history of diabetes mellitus Grandmother Family history of cancer Family history of diabetes mellitus Father Family history of myocardial infarction Meds Home Medications and Allergies Home Medications Medication Instructions Recorded Confirmed Type aspirin 81 mg chewable tablet 81 mg PO DAILY 10/26/22 01/20/23 History (Aspirin Childrens) levothyroxine 175 mcg tablet 175 mcg PO QDAY 10/26/22 01/20/23 History polysaccharide iron complex 180 mg 180 mg PO .qd 10/26/22 01/20/23 History iron capsule (Pro Fe) ibuprofen 800 mg tablet 800 mg PO Q8H PRN pain 14 days #40 12/15/22 01/20/23 Rx tabs cephalexin 500 mg capsule 500 mg PO QID 10 days #40 caps 01/20/23 Rx cephalexin 500 mg capsule 500 mg PO QID 10 days #40 caps 01/20/23 Rx clindamycin HCl 300 mg capsule 300 mg PO TID 7 days #21 caps 01/20/23 Rx (Cleocin HCl) sulfamethoxazole 800 1 tab PO BID 14 days #28 tabs 01/20/23 Rx mg-trimethoprim 160 mg tablet (Bactrim DS) Allergies Allergy/AdvReac Type Severity Reaction Status Date / Time Sulfa (Sulfonamide Allergy Severe Hives Verified 10/26/22 17:14 Antibiotics) Exam Constitutional Vital Signs, click to edit/add: Last Vital Signs Temp 98.0 F 01/21/23 08:48 Pulse 62 01/21/23 08:37 Resp 16 01/21/23 08:48 BP 114/69 01/21/23 08:37 O2 Del Method Room Air 01/21/23 08:48 Results Labs Labs: Abnormal lab results 01/21/23 Range/Units 05:07 WBC 16.5 H (4.0-11.0) 10^3/uL RBC 3.80 L (4.20-5.40) 10^6/uL Hgb 10.5 L (12.0-16.0) g/dL Hct 32.9 L (36.0-48.0) % Neut % (Auto) 78.1 H (43.0-75.0) % Lymph % (Auto) 10.3 L (20.5-60.0) % Neut # (Auto) 12.9 H (1.4-6.5) 10^3/uL [place] # (Auto) 1.5 H (0.3-0.8) 10^3/uL Abs Immat Gran (auto) 0.13 H (0.00-0.03) 10^3/uL Imm/Tot Granulo (auto) 0.8 H (0.0-0.5) % All other labs normal. Assessment and Plan Assessment and Plan (1) Mastitis: Assessment and Plan: Left Breast Mastitis with abscess. Plan U/S Guided aspiration at bedside. Procedure note: Following discussion of options with the patient, the left breast was scanned with the assistance of the U/S health physics technician to identify an appropriate entry point in the upper left breast, following which the skin was prepped with Betadine. The entry site was anesthetized with 1% plain Lidocaine, following which a 14 gauge IV angiocath was insertion under U/S guidance into the abscess collection and approximately 50 cc's of pus was obtained. The cavity was minimally irrigated with saline and further aspirated. Some of the initial aspirate was sent for gram stain and culture. The patient noted immediate relief of pre-op symptoms and tolerated the procedure well. There were no complications and no blood loss. She is OK for D/C to home today from the Surgery standpoint and should F/U with Dr. Washington in his office in 1-2 weeks. P.O. antibiotics should be continued for 5-7 days to cover Staph and Strep until gram stain and culture results are available. Clinically doing well. OK to continue breast feeding.
== END 2023-01-21 16:30 | disposition home or self-care (01) ==
PROVIDERS: Admitting Provider Obstetrics & Gynecology; PCP Family Medicine; Visit Provider Obstetrics & Gynecology
DX: O91.22 Nonpurulent mastitis associated with the puerperium (principal); O91.12 Abscess of breast associated with the puerperium; O90.89 Other complications of the puerperium, not elsewhere classified; J45.909 Unspecified asthma, uncomplicated; E06.3 Autoimmune thyroiditis; Z79.82 Long term (current) use of aspirin; Z79.899 Other long term (current) drug therapy; Z79.890 Hormone replacement therapy
CPT/HCPCS: 36415; 76641; 76642; 80053; 80202; 82565; 84450; 84460; 84520; 85025; 87070; 87150; 87186; 87205; 96365; 96366; 96367; 96375; 96376; G0378; G0379; J3370

== ENCOUNTER 2023-01-30 08:12 | Outpatient (OUT) | payer OTHER, SELFPAY ==
--- NOTE | 2023-01-30 09:48 | PC.NURSE ---
Celine and 7 week old Jose Luis arrive for support. Celine is under continued care for mastitis and left breast abcess with Dr Washington. States went to follow up appointment post hospital visit and had needle aspiration of another 20ml infection. Following day, had open I&D of abscess in OR. With rmoval of another 55ml. Site open to drainage and has packing with dressing. Pt states she continues to drain purulent drainage and changes dressing 2-3 times in 24 hours. Has been on oral antibiotics finishing Cleocin this AM and will finish Keflex this evening. Reviewed ways to dry milk in both breasts. Given handout and instruction for safe decrease of pumping. States will use cabbage to aid in stopping supply as well as pumping for comfort not volume. Celine states not the way I planned it, but it's for the best to no longer try to pump and make milk . Infant doing well on formula and weight at 7 weeks is 9-13. Mom pleased with growth and that baby is doing so well. Mom prepares a bottle for Jose Luis and feeds her 60ml of ready to feed formula. Tolerates well, burps, retains and is content. No further questions or concerns at this time. States will call for questions or contact as needed. Leaves with .
== END 2023-01-30 09:45 | disposition home or self-care (01) ==
LOC: FBCO 08:13
PROVIDERS: PCP Family Medicine; Visit Provider Midwife
DX: Z39.1 Encounter for care and examination of lactating mother (principal)

== ENCOUNTER 2023-04-18 14:00 | Outpatient (OUT) | payer OTHER, SELFPAY ==
--- NOTE | 2023-04-18 14:03 | US_ITS ---
Patient Name: KEYSHA HOGAN MR#: [id number] : 1995 Exam Date: 04/18/2023 Ordering Doctor: DR Gigi Tafoya . RADIOLOGY REPORT PROCEDURE: US BREAST LT COMPLETE COMPARISON: US BREAST LT LIMITED, 01/21/2023. US BREAST LT COMPLETE, 01/20/2023. INDICATIONS: left breast abscess N61.1 TECHNIQUE: Breast ultrasound was performed, with evaluation focusing only on specific areas of concern. FINDINGS: DIAGNOSTIC CATEGORY 3--PROBABLY BENIGN FINDING. THE FOLLOWING FINDING(S) HAS A HIGH PROBABILITY OF A BENIGN ETIOLOGY: LEFT BREAST: Clearing of previously seen abscess with mild residual scarring. Incidental small benign appearing lymph node. Nonspecific nodule versus complex cyst the 4 o'clock position, 7 millimeters diameter of doubtful clinical significance. As a precautionary measure consider follow-up ultrasound evaluation in 6 months to document stability. If stable at that time, no additional follow-up recommended after that. RECOMMENDATIONS: SHORT TERM FOLLOW-UP ULTRASOUND LEFT BREAST IN 6 MONTHS. PLEASE NOTE: A NORMAL ULTRASOUND EXAMINATION DOES NOT EXCLUDE THE POSSIBILITY OF BREAST CANCER. A CLINICALLY SUSPICIOUS PALPABLE LUMP SHOULD BE BIOPSIED. Dictated by: Obi Plascencia M.D. on 04/18/2023 at 14:28 Approved by: Obi Plascencia M.D. on 04/18/2023 at 14:33
== END 2023-04-18 14:01 | disposition home or self-care (01) ==
LOC: US 14:00
PROVIDERS: PCP Family Medicine; Visit Provider Obstetrics & Gynecology
DX: N61.1 Abscess of the breast and nipple (principal)
CPT/HCPCS: 76641

== ENCOUNTER 2023-10-12 14:50 | Outpatient (OUT) | payer OTHER, SELFPAY ==
--- NOTE | 2023-10-12 14:53 | US_ITS ---
Patient Name: KEYSHA HOGAN MR#: [id number] : 1995 Exam Date: 10/12/2023 Ordering Doctor: DR Gigi Tafoya . RADIOLOGY REPORT PROCEDURE: US BREAST LT COMPLETE COMPARISON: US BREAST LT COMPLETE, 04/18/2023. INDICATIONS: Left Breast Abscess N61.1 TECHNIQUE: Breast ultrasound was performed, with evaluation focusing only on specific areas of concern. FINDINGS: DIAGNOSTIC CATEGORY 2--BENIGN FINDING: LEFT BREAST: Heterogeneous hypoechoic area at the 12 o'clock position at site of prior abscess, 2.0 x 1.4 x 0.7 cm. The patient is asymptomatic and this likely represents residual scarring. Stable small 3 mm lymph node versus nodule at the 1 o'clock position. RECOMMENDATIONS: CLINICAL EVALUATION. PLEASE NOTE: A NORMAL ULTRASOUND EXAMINATION DOES NOT EXCLUDE THE POSSIBILITY OF BREAST CANCER. A CLINICALLY SUSPICIOUS PALPABLE LUMP SHOULD BE BIOPSIED. Dictated by: Obi Plascencia M.D. on 10/12/2023 at 15:36 Approved by: Obi Plascencia M.D. on 10/12/2023 at 15:38
== END 2023-10-12 14:51 | disposition home or self-care (01) ==
LOC: US 14:50
PROVIDERS: PCP Family Medicine; Visit Provider Obstetrics & Gynecology
DX: N61.1 Abscess of the breast and nipple (principal)
CPT/HCPCS: 76641

== ENCOUNTER 2024-12-31 18:51 | Outpatient (REF) | payer OTHER, SELFPAY ==
--- OUTSIDE RECORDS SUMMARY | 2024-12-31 08:00 | XMS_ITS | Encounter Summary ---
Author Organization [facility] tem Address [id number] [place] [address] Care Team Providers Care Laboratory Sampler Name Role Phone Ladan Aquino CORPORATE RISK ANALYST-RE ETCHER Primary Care Provide r Reason for Visit * ReasonCommentswell adult Encounter Details DateTypeDepartmentCare Team (Latest Contact Info)Rmntregxspj89/04/2025 8:00 AM ESTOffice Visit [facility] [address] [place] [address] Ladan Aquino APRN-CNP [address] [place] [address] Wellness examination (Primary Dx); Polycystic ovary syndrome; Monica's thyroiditis Social History Tobacco UseTypesPacks/DayYears UsedDateSmoking Tobacco: NeverPassive Smoke Exposure: NeverSmokeless Tobacco: NeverAlcohol UseStandard Drinks/WeekComments Not Currently0 (1 standard drink = 0.6 oz pure alcohol)PHQ-2AnswerDate Recorded Total Crkuc63603/02/2024hildcareAnswerDate LpwdftwxCqguvexsmEuqmory22/26/2020 EmploymentAnswerDate QlmdbdrpDhvsrbbjxwWczghow20/26/2020Hunger ScreeningAnswer Date RecordedWithin the past 12 months we worried whether our food would run out before we got money to buy more.Never True03/20/2024Within the past 12 months the food we bought just didn't last and we didn't have money to get more.Never True03/20/2024Purpose - LifeAnswerDate RecordedPurpose and direction in life Xglvsjs90/11/2021CommentsNoSex and Gender InformationValueDate Recorded Sex Assigned at BirthNot on fileLegal VxjOazepa13/26/2020 4:03 PM ESTGender IdentityNot on fileSexual OrientationNot on filedocumented as of this encounter Last Filed Vital Signs Vital SignReadingTime TakenCommentsBlood Fzxctnmu660/6512/31/2024 8:05 AM EST Xwptw901612/31/2024 8:05 AM QTMGroxbopmivo69.6 ??C (97.8 ??F)12/31/2024 8:05 AM ESTRespiratory Rate--Oxygen Saturation--Inhaled Oxygen Concentration--Tdbotd34.6 kg (173 lb 3.2 oz)12/31/2024 8:05 AM TOODyxpdu308.8 cm (5' 10 )12/31/2024 8:05 AM ESTBody Mass Index24.8512/31/2024 8:05 AM ESTdocumented in this encounter Patient Instructions * Attachments The following attachments cannot be sent through Care Everywhere. * Polycystic ovary syndrome (Australian) documented in this encounter Progress Notes * Ladan Aquino APRN-DIVYA - 12/31/2024 8:00 AM EST Images from the original note were not included. [address] [facility] [id number] Subjective: Makenna Gardner is a 29 y.o. female who presents for an Annual Wellness exam. Patient presents to the office for routine wellness. Has history of POTS -has not had issues in years since gaining weight., hashimotos, migraines, PCOS. She is working with fertility clinic at [facility]. 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 Did see endocrinology at [facility] and did see our endocrinology group. She is due for routine. The following portions of the patient's history were reviewed and updated as appropriate: medications, allergies, past medical history, past surgical history, social history, family history and immunization history Vitals: Vitals: 12/31/24 0805 BP: 110/65 BP Site: Left Arm BP Postition: Sitting BP CUFF SIZE: M (9-13 inches) Pulse: 68 Temp: 36.6 ??C (97.8 ??F) TempSrc: Temporal Weight: 78.6 kg (173 lb 3.2 oz) Height: 177.8 cm (5' 10 ) History: Patient Active Problem List Diagnosis Date Noted Polycystic ovary syndrome 12/31/2024 Monica's thyroiditis 08/31/2022 Past Medical History: Diagnosis Date Arrhythmia has had workup by structural heart for POTS 2018-negative, on metoprolol as needed Asthma Monica's thyroiditis Hypothyroid Infertility, female Migraine PCOS (polycystic ovarian syndrome) Visual impairment contacts Past Surgical History: Procedure Laterality Date SECTION 2022 EXCISION LESION melanoma excised x2 FOOT SURGERY Left 2007 INCISION DRAINAGE BREAST Left 01/26/2023 Performed by Zeke Washington DO at [facility] KIDNEY SURGERY Right 2017 UPJ obstruction Family History Problem Relation Age of Onset No Known Problems Mother Heart attack Father Pulmonary embolism Father Hypothyroidism Father Lymphoma Maternal Grandmother Liver cancer Paternal Grandmother Social History Tobacco Use Smoking status: Never Passive exposure: Never Smokeless tobacco: Never Substance Use Topics Alcohol use: Not Currently Allergies: Allergies Allergen Reactions Sulfamethoxazole-Trimethoprim Hives Other Reaction(s): Unknown Immunization History Administered Date(s) Administered COVID-19, mRNA, LNP-S, PF, 100mcg/0.5mL Dose 01/19/2021, 02/16/2021 Review of Systems: Review of Systems Constitutional: Negative for fatigue, fever and unexpected weight change. HENT: Negative for congestion, ear pain, sinus pressure, sinus pain and sore throat. Eyes: Negative for photophobia, pain, discharge and visual disturbance. Respiratory: Negative for cough and shortness of breath. Cardiovascular: Negative for chest pain, palpitations and leg swelling. Gastrointestinal: Negative for abdominal pain, diarrhea, nausea and vomiting. Endocrine: Negative for polydipsia, polyphagia and polyuria. Genitourinary: Negative for difficulty urinating, frequency, hematuria and urgency. Musculoskeletal: Negative for arthralgias, gait problem, joint swelling and neck pain. Skin: Negative for pallor and rash. Neurological: Negative for dizziness, weakness, light-headedness and numbness. Psychiatric/Behavioral: Negative for sleep disturbance. The patient is not nervous/anxious. Objective: BP 110/65 (BP Site: Left Arm, BP Postition: Sitting, BP CUFF SIZE: M (9-13 inches)) Pulse 68 Temp 36.6 ??C (97.8 ??F) (Temporal) Ht 177.8 cm (5' 10 ) Wt 78.6 kg (173 lb 3.2 oz) BMI 24.85 kg/m?? Physical Exam Constitutional: Appearance: She is well-developed. HENT: Head: Normocephalic and atraumatic. Right Ear: Tympanic membrane, ear canal and external ear normal. Left Ear: Tympanic membrane, ear canal and external ear normal. Eyes: Conjunctiva/sclera: Conjunctivae normal. Pupils: Pupils are equal, round, and reactive to light. Cardiovascular: Rate and Rhythm: Normal rate and regular rhythm. Heart sounds: Normal heart sounds. Pulmonary: Effort: Pulmonary effort is normal. Breath sounds: Normal breath sounds. Abdominal: General: Bowel sounds are normal. Palpations: Abdomen is soft. Musculoskeletal: Cervical back: Normal range of motion. Skin: General: Skin is warm and dry. Neurological: Mental Status: She is alert and oriented to person, place, and time. Psychiatric: Mood and Affect: Mood normal. Assessment/Plan: Makenna was seen today for well adult. Diagnoses and all orders for this visit: Wellness examination Polycystic ovary syndrome Monica's thyroiditis Plan Outpatient Medications Prior to Visit Medication Sig Dispense Refill albuterol (PROVENTIL HFA;VENTOLIN HFA) 90 mcg/actuation inhaler Inhale 2 puffs every 6 (six) hours as needed for wheezing. albuterol (PROVENTIL,VENTOLIN) 2.5 mg /3 mL (0.083 %) nebulizer solution Inhale 3 mL (2.5 mg total)by nebulization daily as needed for shortness of breath or wheezing. aspirin 81 mg Take 1 tablet (81 mg total) by mouth in the morning. folic acid-vit B6-vit B12 (FOLBEE) 2.5-25-1 mg tablet Take 1 tablet by mouth in the morning. levothyroxine (SYNTHROID, LEVOTHROID) 175 MCG tablet Take 1 tablet (175 mcg total) by mouth in the morning. 90 tablet 3 metFORMIN (GLUMETZA) 500 MG (MOD) 24 hr tablet Take 1 tablet (500 mg total) by mouth Daily before evening meal. (Patient taking differently: Take 1 tablet (500 mg total) by mouth in the morning and at bedtime.) vit no.124/iron/folic ( VITAMIN ORAL) Take 1 tablet by mouth in the morning. progesterone (ENDOMETRIN) 100 mg vaginal insert Insert 2 tablets (200 mg total) into the vagina in the morning and 2 tablets (200 mg total) before bedtime. (Patient not taking: Reported on 12/31/2024) No facility-administered medications prior to visit. Follow Up: Cbc,cmp,lipid Will call with results Reviewed previous notes Follow up yearly or as needed ARIANA Landrum 12/31/24 0844 documented in this encounter Plan of Treatment DateTypeDepartmentCare Team (Latest Contact Info)Kavjaqfhnlh62/20/2026 2:30 PM ESTOffice Visit [facility] [address] [place] [address] Hilary Briscoe MD [address] [place] [address] 01/01/2026 4:00 PM ESTOffice Visit [facility] [address] [place] [phone] Ladan Aquino APRN-CNP [address] [place], [place] [id number] NameTypePriorityAssociated DiagnosesOrder ScheduleCBC auto differentialLab Routine Wellness examination Expected: 12/31/2024, Expires: 12/31/2025omprehensive metabolic panelLabRoutine Wellness examination 1 Occurrences starting 12/31/2024 until 12/31/2025Lipid profileLabRoutine Wellness examination Expected: 12/31/2024, Expires: 12/31/2025documented as of this encounter Visit Diagnoses Diagnosis Wellness examination- Primary Polycystic ovary syndrome Polycystic ovaries Monica's thyroiditis Chronic lymphocytic thyroiditis documented in this encounter Additional Health Concerns AssessmentNoted TimePHQ-9 Depression Total Score: 8:05 AM EST documented as of this encounter Care Teams Team MemberRelationshipSpecialtyStart DateEnd Date Ladan Aquino, FIORELLA-RE ETCHER [address] [place] [address] PCP - GeneralFamily Medicine10/02/24documented as of this encounter
--- OUTSIDE RECORDS SUMMARY | 2024-12-31 10:30 | XMS_ITS | Encounter Summary ---
Author Organization [facility] Address [address] [place] [address] Care Team Providers Care Landscape Architect And Planner Name Role Phone Hector Bates MD Primary Care Provider [phone] Reason for Visit * ReasonCommentsWell Women Visit Encounter Details DateTypeDepartmentCare Team (Latest Contact Info)Kfwqsfeqqwx03/04/2025 10:30 AM ESTOffice Visit [facility] [place] [facility] [address] [place] [address] Gigi Tafoya DO [address] [place], [place] [id number] Well woman exam with routine gynecological exam; Monica's thyroiditis; History of miscarriage Social History Tobacco UseTypesPacks/DayYears UsedDateSmoking Tobacco: NeverSmokeless Tobacco: NeverAlcohol UseStandard Drinks/WeekCommentsNever0 (1 standard drink = 0.6 oz pure alcohol)CommentsNoSex and Gender InformationValueDate RecordedSex Assigned at BirthNot on fileLegal LevAadogh22/15/2023 11:22 PM EDTGender IdentityNot on fileSexual OrientationNot on filedocumented as of this encounter Last Filed Vital Signs Vital SignReadingTime TakenCommentsBlood Jsaklqlh922/7012/31/2024 10:36 AM EST Pulse--Temperature--Respiratory Rate--Oxygen Saturation--Inhaled Oxygen Concentration--Wfhnau04.4 kg (172 lb 12.8 oz)12/31/2024 10:36 AM ESTHeight--Body Mass Index24.7912/16/2024 3:20 PM EDTdocumented in this encounter Plan of Treatment NameTypePriorityAssociated DiagnosesOrder SchedulePap SmearPathology and CytologyRoutine Well woman exam with routine gynecological exam Ordered: 12/31/2024HPV DNA probe, amplifiedMicrobiologyRoutine Well woman exam with routine gynecological exam Ordered: 12/31/2024documented as of this encounter Visit Diagnoses Diagnosis Well woman exam with routine gynecological exam Routine gynecological examination Monica's thyroiditis Chronic lymphocytic thyroiditis History of miscarriage Personal history of other genital system and obstetric disorders documented in this encounter Care Teams Team MemberRelationshipSpecialtyStart DateEnd Date Hector Bates MD [address] [place] [address] PCP - GeneralFamily Medicine08/02/22documented as of this encounter
--- OUTSIDE RECORDS SUMMARY | 2024-12-31 18:54 | XMS_ITS | Encounter Summary ---
Author Organization [facility] Address [address] [place] [address] Care Team Providers Care Loaders Name Role Phone Hector Bates MD Primary Care Provider [phone] Encounter Details DateTypeDepartmentCare Team (Latest Contact Info)Lzhdfsooggb29/31/2025Telephone [facility] [place] [facility] [address] [place] [address] [place] [address] Wendi Gandhi LPN Social History Tobacco UseTypesPacks/DayYears UsedDateSmoking Tobacco: NeverSmokeless Tobacco: NeverAlcohol UseStandard Drinks/WeekCommentsNever0 (1 standard drink = 0.6 oz pure alcohol)CommentsNoSex and Gender InformationValueDate RecordedSex Assigned at BirthNot on fileLegal JdrZbsorf97/15/2023 11:22 PM EDTGender IdentityNot on fileSexual OrientationNot on filedocumented as of this encounter Miscellaneous Notes * Telephone Encounter - Wendi Gandhi LPN - 12/27/2024 9:29 AM EDT 12/26/24 @09:10am Patient called and LMOM that she started her cycle yesterday 12/25/24 and that she would like for clomid to be sent to [facility] pharmacy in [place]. 12/27/24 @09:30am Clomid 100mg sent to patients pharmacy. LMP: 12/25/24, Day 21: 01/14/25 for lab draw. Called patient and notified her that medication was sent to pharmacy. PVU and aware of date forlab draw. Wendi Curtis LPN documented in this encounter Plan of Treatment Not on file documented as of this encounter Visit Diagnoses Diagnosis Monica's thyroiditis Chronic lymphocytic thyroiditis Amenorrhea Absence of menstruation documented in this encounter Care Teams Team MemberRelationshipSpecialtyStart DateEnd Date Hector Bates MD [address] [place] [address] PCP - GeneralFamily Medicine08/02/22documented as of this encounter
--- OUTSIDE RECORDS SUMMARY | 2024-12-31 18:54 | XMS_ITS | Encounter Summary ---
Author Organization [facility] Address [address] [place] [address] Care Team Providers Care After School Program Coordinator Name Role Phone Chen Lucia MD Primary Care Provider [phone] Encounter Details DateTypeDepartmentCare Team (Latest Contact Info)Uxsvwrqoqmr01/27/2023Clinisync Result Encounter [facility] External Department Unsolicited Gigi Tafoya, DO [address] [place], [place] [id number] Social History Tobacco UseTypesPacks/DayYears UsedDateSmoking Tobacco: NeverSmokeless Tobacco: NeverAlcohol UseStandard Drinks/WeekCommentsNever0 (1 standard drink = 0.6 oz pure alcohol)CommentsNoSex and Gender InformationValueDate RecordedSex Assigned at BirthNot on fileLegal QvyZqhqwk03/15/2023 11:22 PM EDTGender IdentityNot on fileSexual OrientationNot on filedocumented as of this encounter Plan of Treatment Not on file documented as of this encounter Procedures Procedure NamePriorityDate/TimeAssociated DiagnosisCommentsBI US BREAST COMPLETE LEFT01/23/2023 10:09 AM EST documented in this encounter Results * Left breast US complete (01/23/2023 10:09 AM EST)Anatomical RegionLaterality ModalityBreastLeftUltrasoundSpecimen (Source)Anatomical Location / Laterality Collection Method / VolumeCollection TimeReceived Time01/23/2023 10:09 AM EST Narrative 01/23/2023 10:09 AM EST [facility] [place] [facility] ?[address] ? [place] [address] ? Ultrasound Report ? Signed ? Patient: SAMIRA,KEYSHA R ? MR#: [id number] ?? : 1995 ?Acct:[id number] ?? Age/Sex: 27 / F ?ADM Date: ?? Loc: [facility] ??252-1 ? Attending Dr: Gigi Tafoya D.O. ? Ordering Physician: Gigi Tafoya D.O. ?? Date of Service: 01/20/23 ?? Procedure(s): US breast LT complete ?? Accession Number(s): [id number] ? cc: Gigi Tafoya D.O.; CHEN LUCIA. ? Patient Name: ? KEYSHA SAMIRA ? MR#: [id number] ? : 1995 ? Exam Date: 01/20/2023 ?? Ordering Doctor: DR Gigi Tafoya . ? RADIOLOGY REPORT ? PROCEDURE: ? US BREAST LT COMPLETE ? COMPARISON: ? US BREAST LT LIMITED, 01/21/2023. ? INDICATIONS: ? mastitis of left breast x 10 days ? TECHNIQUE: ? Breast ultrasound was performed, with evaluation focusing only ?? on specific areas of concern. ? FINDINGS: ? DIAGNOSTIC CATEGORY 3--PROBABLY BENIGN FINDING. ??THE FOLLOWING FINDING(S) HAS ?? A HIGH PROBABILITY OF A BENIGN ETIOLOGY: ? LEFT BREAST: ??Lobular heterogeneous hypoechoic area within left breast, 11 ?? o'clock, 5.7 x 3.5 x 6.0 cm with surrounding hypervascularity suggestive of an ?? abscess. ??(Preliminary findings were provided on January 20, 2023) ? Partially circumscribed 2.0 cm nodule at the 2 o'clock position suspected ?? to represent a fibroadenoma; follow-up ultrasound evaluation after resolution ?? of mastitis/abscess is recommended. ? Benign-appearing 1.2 cm cyst at 4 o'clock position. ? RECOMMENDATIONS: ? SHORT TERM FOLLOW-UP ULTRASOUND LEFT BREAST IN 2 MONTHS. ? PLEASE NOTE: ??A NORMAL ULTRASOUND EXAMINATION DOES NOT EXCLUDE THE POSSIBILITY ?? OF BREAST CANCER. ??A CLINICALLY SUSPICIOUS PALPABLE LUMP SHOULD BE BIOPSIED. ? Dictated by: Obi Plascencia M.D. on 01/23/2023 at 09:45 ? Approved by: Obi Plascencia M.D. on 01/23/2023 at 10:09 ? Dictated By: ?Obi Plascencia M.D. ? Signed By: ?01/23/23 1010 ? DD/ 1009 ? TD/TT: ? Maintenance Electrician: Procedure Note Radiology, Radiologist, MD - 01/23/2023 [facility] [place] [id number] Ultrasound Report Signed Patient: KEYSHA GARDNER RMR#: [id number] : 1995Acct:[id number] Age/Sex: Date: Loc: [facility] 252-[address]: Gigi Tafoya D.O. Ordering Physician: Gigi Tafoya D.O. Date of Service: 01/20/23 Procedure(s): US breast LT complete Accession Number(s): [id number] cc: Gigi Tafoya D.O.; CHEN LUCIA Patient Name: KEYSHA GARDNER MR#: [id number] : 1995 Exam Date: 01/20/2023 Ordering Doctor: DR Gigi Tafoya . RADIOLOGY REPORT PROCEDURE: US BREAST LT COMPLETE COMPARISON: US BREAST LT LIMITED, 01/21/2023. INDICATIONS: mastitis of left breast x 10 days TECHNIQUE: Breast ultrasound was performed, with evaluation focusingonly on specific areas of concern. FINDINGS: DIAGNOSTIC CATEGORY 3--PROBABLY BENIGN FINDING. THE FOLLOWING FINDING(S)HAS A HIGH PROBABILITY OF A BENIGN ETIOLOGY: LEFT BREAST: Lobular heterogeneous hypoechoic area within left breast, 11 o'clock, 5.7 x 3.5 x 6.0 cm with surrounding hypervascularity suggestiveof an abscess. (Preliminary findings were provided on January 20, 2023) Partially circumscribed 2.0 cm nodule at the 2 o'clock positionsuspected to represent a fibroadenoma; follow-up ultrasound evaluation afterresolution of mastitis/abscess is recommended. Benign-appearing 1.2 cm cyst at 4 o'clock position. RECOMMENDATIONS: SHORT TERM FOLLOW-UP ULTRASOUND LEFT BREAST IN 2 MONTHS. PLEASE NOTE: A NORMAL ULTRASOUND EXAMINATION DOES NOT EXCLUDE THEPOSSIBILITY OF BREAST CANCER. A CLINICALLY SUSPICIOUS PALPABLE LUMP SHOULD BEBIOPSIED. Dictated by: Obi Plascencia M.D. on 01/23/2023 at 09:45 Approved by: Obi Plascencia M.D. on 01/23/2023 at 10:09 Dictated By: Obi Plascencia M.D. Signed By:01/23/23 1010 DD/ 1009 TD/TT: Maintenance Electrician: Authorizing ProviderResult TypeResult StatusCorey Michelet [facility] PROCEDURESFinal Result documented in this encounter Visit Diagnoses Not on filedocumented in this encounter Care Teams Team MemberRelationshipSpecialtyStart DateEnd Date Chen Lucia MD [address] [place] [address] PCP - GeneralFamily Medicine08/02/22documented as of this encounter
--- OUTSIDE RECORDS SUMMARY | 2024-12-31 18:54 | XMS_ITS | Clinical Summary ---
Author Organization [facility] Address [address] [place] [address] Care Team Providers Care Quarter Backer Name Role Phone Hector Bates MD Primary Care Provider [phone] Allergies Active AllergyReactionsCriticalityNoted DateCommentsSulfa Emschoacgjz11/06/2023 Sulfamethoxazole-Rqxvwkycogwc35/10/2023 Other Reaction(s): Unknown Medications MedicationSigDispense QuantityRefillsLast FilledStart DateEnd DateStatus levothyroxine (Synthroid, Levoxyl) 175 MCG tablet Take 175 mcg by mouth in the morning. Take before meals.Active metFORMIN XR (Glucophage-XR) 500 MG 24 hr tablet Indications:Monica's thyroiditis,History of miscarriageTake 1 tablet (500 mg) by mouth in the evening. Take with meals Do not crush, chew, or split. 90 tablet ctive aspirin 81 MG EC tablet Take 81 mg by mouth DailyActive folic acid-vit B6-vit B12 (Folbee) 2.5-25-1 MG tablet tablet Take 1 tablet by mouth in the morning.Active Multiple Vitamin (multivitamin) tablet Take 1 tablet by mouth DailyActive MV-Min-Fe Fum-FA-DHA ( 1 PO) Take by mouth.12/31/2024Discontinued promethazine (Phenergan) 12.5 MG tablet Indications:History of hyperemesis gravidarumTake 1 tablet (12.5 mg) by mouth every 6 (six) hours if needed for nausea or vomiting for up to 30 doses Take 1 tablet by mouth every 6 hours as needed for nausea. 30 tablet Discontinued metoclopramide (Reglan) 10 MG tablet Indications:History of hyperemesis gravidarumTake 1 tablet (10 mg) by mouth in the morning and 1 tablet (10 mg) at noon and 1 tablet (10 mg) in the evening. Take before meals. Take 1 tablet by mouth 30 minutes prior to meals 3 times daily as needed for nausea.. 90 tablet Discontinued levothyroxine (Synthroid) 200 MCG tablet Indications:Monica's thyroiditisTake 1 tablet (200 mcg) by mouth in the morning. Take before meals. 90 tablet Discontinued metFORMIN XR (Glucophage-XR) 500 MG 24 hr tablet Indications:Monica's thyroiditis,Infertility counselingTake 2 tablets (1,000 mg) by mouth in the evening. Take with meals 60 tablet 111Discontinued clomiPHENE (Clomid) 50 MG tablet Indications:Monica's thyroiditis,AmenorrheaTake 2 tablets (100 mg) by mouth Daily for 5 days 10 tablet Discontinued Active Problems ProblemNoted DateDiagnosed YhpkNvfqnbgrdegjh89/27/6359Pigmowfryuiwtun78/27/2025 History of nzxcqlxwuko85/27/5208Rfygovtyea78/26/20246 weeks follow-up ([facility])01/17/2023Oligohydramnios ([facility])11/30/2022 Overview (12/09/2022): [facility] 11/30/22: SANDRA 2.99 cm, absent 2x2 pocket Monica's sipvhzsilbd25/05/2023Hypothyroidism due to Monica's thyroiditis 08/31/2022Missed kkdtxi0608/01/2022Encounter for anatomic survey ([facility]) 08/01/2022Hyperemesis gravidarum ([facility])04/27/2022Ureteropelvic junction (UPJ) nipmomqdwha68/02/2017Right flank pain09/26/2014 Resolved Problems ProblemNoted DateDiagnosed DateResolved DateNausea/vomiting in ([facility])/06/2022 Encounters DateTypeDepartmentCare FnuhJrlojpsljji85/04/2025 10:30 AM ESTOffice Visit [facility] [address] [place] [address] Gigi Tafoya, Well woman exam with routine gynecological exam; Monica's thyroiditis; History of tcuxbaswpuv19/04/2025amboo flowsheet [facility] [place] [facility] [address] [place] [address] Gigi Tafoya, DO 12/27/2024Telephone [facility] [place] [facility] [address] [place] [address] Wendi Gandhi LPN 12/16/2024 3:10 PM EDTOffice Visit [facility] [place] [facility] [address] [address] Gigi Tafoya, Monica's thyroiditis; Infertility counseling; History of yexcgjkuggl85/20/2025bstract [facility] [place] [facility] [address] [place] [address] Gigi Tfaoya, 12/16/2024Telephone [facility] [place] [facility] [address] [place] [address] Wendi Gandhi LPN 12/16/2024amb flowsheet [facility] [place] [facility] [address] [place] [address] Gigi Tafoya DO from Last 3 Months Family History Medical HistoryRelationNameCommentsAsthmaBrotherHeart attackFatherNSTEMI Pulmonary embolismFatherfrom COVIDAsthmaSisterRelationNameStatusCommentsBrother AliveFatherAliveMotherAliveSisterAlive Social History Tobacco UseTypesPacks/DayYears UsedDateSmoking Tobacco: NeverSmokeless Tobacco: Never Tobacco Cessation:Counseling Given: Not Answered Alcohol UseStandard Drinks/WeekCommentsNever0 (1 standard drink = 0.6 oz pure alcohol)CommentsNoSex and Gender InformationValueDate RecordedSex Assigned at BirthNot on fileLegal QngMymwsd25/15/2023 11:22 PM EDTGender IdentityNot on fileSexual OrientationNot on file Last Filed Vital Signs Vital SignReadingTime TakenCommentsBlood Ygpkzswi347/7012/31/2024 10:36 AM EST Pulse--Temperature--Respiratory Rate--Oxygen Saturation--Inhaled Oxygen Concentration--Lmggbi74.4 kg (172 lb 12.8 oz)12/31/2024 10:36 AM BDVAtpftq167.8 cm (5' 10 )12/16/2024 3:20 PM EDTBody Mass Index24.7912/16/2024 3:20 PM EDT Plan of Treatment Health MaintenanceDue DateLast DoneCommentsHPV/Hymxcv8706/07/2024OVID-19 Vaccine ( season)/, 01/19/2021Influenza Vaccine (#1) /, 11/22/2019Cervical Cancer Nqyukkfpu62/14/2025Pap Smear , 11/24/2017Pneumococcal Vaccine: Pediatrics (0 to 5 Years) and At-Risk Patients (6 to 64 Years)Aged OutNo longer eligible based on patient's age to complete this topic Procedures Procedure NamePriorityDate/TimeAssociated DiagnosisCommentsPROGESTERONERoutine 10/29/2024 4:53 PM EDT LRDSZKIUOUULFyvyfzy33/06/2025 8:46 AM EDT PAP XZVOMSyxormz55/14/2022 12:00 AM ESTfrom Last 3 Months or Most Recently Relevant to Health Maintenance Results * Progesterone (10/29/2024 4:53 PM EDT) Only the most recent of2 resultswithin the time period is included. ComponentValueRef RangeTest MethodAnalysis TimePerformed AtPathologist Signature PPEESOUESSRX27.7ng/mLPROMEDICAComment: FEMALES: 1st Tri: ??4.7-50.7 ng/ml 2nd Tri: ??19.4-45.3 ng/ml MENSTRUATING FEMALES: Follicular: ??0.3-1.5 ng/ml Mid Luteal: ??5.2-18.6 ng/ml Post Fatou: <0.1-0.8 ng/ml ?? PERFORMED AT [facility] [address],[place] [address] Specimen (Source)Anatomical Location / LateralityCollection Method / Volume Collection TimeReceived Time10/29/2024 4:53 PM EDT10/29/2024 9:19 PM EDT Narrative Authorizing ProviderResult TypeResult StatusCorey Michelet DOLAB BLOOD ORDERABLES Final ResultPerforming OrganizationAddressCity/State/ZIP CodePhone Number [place] * Pap Smear (01/10/2022 12:00 AM EST)Specimen (Source)Anatomical Location / LateralityCollection Method / VolumeCollection TimeReceived TimeSwabCervical swab / Unknown Narrative Authorizing ProviderResult TypeResult StatusHistorical Provider NATHANIEL CYTOLOGY ORDERABLESFinal ResultPerforming OrganizationAddressCity/State/ZIP CodePhone Number EXTERNAL LAB from Last 3 Months or Most Recently Relevant to Health Maintenance Insurance [facility] Address: [address] [address] Care Teams Team MemberRelationshipSpecialtyStart DateEnd Date Hector Bates MD [address] [place] [address] PCP - Generalmi Medicine08/02/22
--- OUTSIDE RECORDS SUMMARY | 2024-12-31 18:54 | XMS_ITS | Encounter Summary ---
Author Organization [facility] Address [address] [place] [address] Care Team Providers Care Woodwork Teacher Name Role Phone Chen Lucia MD Primary Care Provider [phone] Encounter Details DateTypeDepartmentCare Team (Latest Contact Info)Gxmhusiawyb19/15/2024Clinisync Result Encounter [facility] External Department Unsolicited Gigi Tafoya, DO [address] [place], [place] [id number] Social History Tobacco UseTypesPacks/DayYears UsedDateSmoking Tobacco: NeverSmokeless Tobacco: NeverAlcohol UseStandard Drinks/WeekCommentsNever0 (1 standard drink = 0.6 oz pure alcohol)CommentsNoSex and Gender InformationValueDate RecordedSex Assigned at BirthNot on fileLegal DonZndvtp35/15/2023 11:22 PM EDTGender IdentityNot on fileSexual OrientationNot on filedocumented as of this encounter Plan of Treatment Not on file documented as of this encounter Procedures Procedure NamePriorityDate/TimeAssociated DiagnosisCommentsBI US BREAST COMPLETE LEFT10/12/2023 3:38 PM EDT documented in this encounter Results * Left breast US complete (10/12/2023 3:38 PM EDT)Anatomical RegionLaterality ModalityBreastLeftUltrasoundSpecimen (Source)Anatomical Location / Laterality Collection Method / VolumeCollection TimeReceived Time10/12/2023 3:38 PM EDT Narrative 10/12/2023 3:39 PM EDT [facility] ?[address] ? [place] [address] ? Ultrasound Report ? Signed ? Patient: SAMIRA,KEYSHA R ? MR#: [id number] ?? : 1995 ?Acct:[id number] ?? Age/Sex: 28 / F ?ADM Date: 08/15/24 ?? Loc: US ? Attending Dr: Gigi Tafoya D.O. ? Ordering Physician: Gigi Tafoya D.O. ?? Date of Service: 10/12/23 ?? Procedure(s): US breast LT complete ?? Accession Number(s): [id number] ? cc: Gigi Tafoya D.O.; CHEN LUCIA ? Patient Name: ? KEYSHA GARDNER ? MR#: [id number] ? : 1995 ? Exam Date: 10/12/2023 ?? Ordering Doctor: DR Gigi Tafoya . ? RADIOLOGY REPORT ? PROCEDURE: ? US BREAST LT COMPLETE ? COMPARISON: ? US BREAST LT COMPLETE, 04/18/2023. ? INDICATIONS: ? Left Breast Abscess N61.1 ? TECHNIQUE: ? Breast ultrasound was performed, with evaluation focusing only ?? on specific areas of concern. ? FINDINGS: ? DIAGNOSTIC CATEGORY 2--BENIGN FINDING: ? LEFT BREAST: ??Heterogeneous hypoechoic area at the 12 o'clock position at site ?? of prior abscess, 2.0 x 1.4 x 0.7 cm. ??The patient is asymptomatic and this ?? likely represents residual scarring. ??Stable small 3 mm lymph node versus ?? nodule at the 1 o'clock position. ? RECOMMENDATIONS: ? CLINICAL EVALUATION. ? PLEASE NOTE: ??A NORMAL ULTRASOUND EXAMINATION DOES NOT EXCLUDE THE POSSIBILITY ?? OF BREAST CANCER. ??A CLINICALLY SUSPICIOUS PALPABLE LUMP SHOULD BE BIOPSIED. ? Dictated by: Obi Plascencia M.D. on 10/12/2023 at 15:36 ? Approved by: Obi Plascencia M.D. on 10/12/2023 at 15:38 ? Dictated By: ?Obi Plascencia M.D. ? Signed By: ?10/12/23 1539 ? DD/ 1538 ? TD/TT: ? Fight Manager: Procedure Note Radiology, Radiologist, MD - 10/12/2023 [place] [address] Ultrasound Report Signed Patient: KEYSHA GARDNER RMR#: [id number] : 1995Acct:[id number] Age/Sex: 28 / FADM Date: 10/12/23 Loc: US Attending Dr: Gigi Tafoya D.O. Ordering Physician: Gigi Tafoya D.O. Date of Service: 10/12/23 Procedure(s): US breast LT complete Accession Number(s): [id number] cc: Gigi Tafoya D.O.; CHEN LUCIA Patient Name: KEYSHA GARDNER MR#: [id number] : 1995 Exam Date: 10/12/2023 Ordering Doctor: DR Gigi Tafoya . RADIOLOGY REPORT PROCEDURE: US BREAST LT COMPLETE COMPARISON: US BREAST LT COMPLETE, 04/18/2023. INDICATIONS: Left Breast Abscess N61.1 TECHNIQUE: Breast ultrasound was performed, with evaluation focusingonly on specific areas of concern. FINDINGS: DIAGNOSTIC CATEGORY 2--BENIGN FINDING: LEFT BREAST: Heterogeneous hypoechoic area at the 12 o'clock position atsite of prior abscess, 2.0 x 1.4 x 0.7 cm. The patient is asymptomatic andthis likely represents residual scarring. Stable small 3 mm lymph node versus nodule at the 1 o'clock position. RECOMMENDATIONS: CLINICAL EVALUATION. PLEASE NOTE: A NORMAL ULTRASOUND EXAMINATION DOES NOT EXCLUDE THEPOSSIBILITY OF BREAST CANCER. A CLINICALLY SUSPICIOUS PALPABLE LUMP SHOULD BEBIOPSIED. Dictated by: Obi Plascencia M.D. on 10/12/2023 at 15:36 Approved by: Obi Plascencia M.D. on 10/12/2023 at 15:38 Dictated By: Obi Plascencia M.D. Signed By:10/12/23 1539 DD/ 1538 TD/TT: Fight Manager: Authorizing ProviderResult TypeResult StatusCorey Michelet DOIMG US PROCEDURESFinal Result documented in this encounter Visit Diagnoses Not on filedocumented in this encounter Care Teams Team MemberRelationshipSpecialtyStart DateEnd Date Chen Lucia MD [address] [place] [address] PCP - GeneralFamily Medicine08/02/22documented as of this encounter
--- OUTSIDE RECORDS SUMMARY | 2024-12-31 18:54 | XMS_ITS | Encounter Summary ---
Author Organization [facility] Address [address] [place] [address] Care Team Providers Care Labor Delivery Specialist Name Role Phone Chen Lucia MD Primary Care Provider [phone] Encounter Details DateTypeDepartmentCare Team (Latest Contact Info)Huxjryczwvg97/19/2023linisync Result Encounter [facility] External Department Unsolicited Tony Tafoya, DO [address] [facility] [place] [address] Social History Tobacco UseTypesPacks/DayYears UsedDateSmoking Tobacco: NeverSmokeless Tobacco: NeverAlcohol UseStandard Drinks/WeekCommentsNever0 (1 standard drink = 0.6 oz pure alcohol)CommentsYesSex and Gender InformationValueDate RecordedSex Assigned at BirthNot on fileLegal UrtKiunre76/15/2023 11:22 PM EDTGender IdentityNot on fileSexual OrientationNot on fileCOVID-19 ExposureResponseDate RecordedIn the last 10 days, have you been in contact with someone who was confirmed or suspected to have Coronavirus/COVID-19?No / Unsure11/25/2022 12:31 PM EDTdocumented as of this encounter Plan of Treatment Not on file documented as of this encounter Procedures Procedure NamePriorityDate/TimeAssociated DiagnosisCommentsUS OB BPP W NON-TSGNLB0311/15/2022 5:03 AM EDT documented in this encounter Results * US OB BPP W NON-STRESS (11/15/2022 5:03 AM EDT)Anatomical Region LateralityModalityOtherSpecimen (Source)Anatomical Location / Laterality Collection Method / VolumeCollection TimeReceived Time11/15/2022 5:03 AM EDT Narrative 11/15/2022 5:03 AM EDT [facility] ?[address] ? [place] [address] ? Ultrasound Report ? Signed ? Patient: SAMIRA,MAKENNA R ? MR#: [id number] ?? : 1995 ?Acct:[id number] ?? Age/Sex: 27 / F ?ADM Date: 11/14/22 ?? Loc: US ? Attending Dr: Tony Tafoya D.O. ? Ordering Physician: Tony Tafoya D.O. ?? Date of Service: 11/14/22 ?? Procedure(s): US OB BPP w non-stress ?? Accession Number(s): [id number] ? cc: Tony Tafoya D.O.; CHEN LUCIA ? [facility] ? [address] ? [place] [address] ? Patient Name: ?? MAKENNA GARDNER ? MRN: [facility]:[id number] ? date: 1995 ?Sex: F ?? Assigned Patient Location: [facility] ?? Current Patient Location: US ?? Accession/Order Number: [id number] ?? Exam Date: 11/14/2022 ??18:01 ?Report Date: 11/15/2022 ??05:03 ? At the request of: ?? TONY ??MICHELET ? Procedure: ??US OB BPP w non-stress ? EXAMINATION: US OB BPP w non-stress ? HISTORY: O41.03X0 OLIGOHYRDAMINOS ? COMPARISON: No relevant comparison available. ? TECHNIQUE: Ultrasound biophysical profile was performed in the radiology ?? department. ? FINDINGS: ?? BREATHING MOVEMENTS: 2.0 ?? GROSS BODY MOVEMENTS: 2.0 ?? TONE: 2.0 ?? QUALITATIVE AMNIOTIC FLUID VOLUME: 2.0 ? PRESENTATION: CEPHALIC ?? HEART RATE: 142.9 bpm H.B./min ?? AMNIOTIC FLUID VOLUME: 10.2 cm cm ?? GESTATIONAL AGE: 32 weeks 0 days ? CONCLUSION: ? Total biophysical profile score: 8.0 ? Electronically authenticated by: RAFY ??WEST ?? Date: 11/15/2022 ??05:03 ? Dictated By: ?Simón,Rafy V M.Terry. ? Signed By: ?11/15/ 0506 ? DD/DT: 11/15/ 0503 ? TD/TT: ? E Commerce Strategist: Procedure Note Radiology, Radiologist, - 11/18/2022 [place] [address] Ultrasound Report Signed Patient: MAKENNA GARDNER RMR#: [id number] : 1995Acct:[id number] Age/Sex: 27 / FADM Date: 11/14/22 Loc: US Attending Dr: Tony Tafoya D.O. Ordering Physician: Tony Tafoya D.O. Date of Service: 11/14/22 Procedure(s): US OB BPP w non-stress Accession Number(s): [id number] cc: Tony Tafoya D.O.; CHEN LUCIA The [place] [address] Patient Name: MAKENNA GARDNER MRN: [id number] date: 1995 Sex: F Assigned Patient Location: [facility] Current Patient Location: US Accession/Order Number: [id number] Exam Date: 11/14/2022 18:01 Report Date: 11/15/2022 05:03 At the request of: TONY TAFOYA Procedure: US OB BPP w non-stress EXAMINATION: US OB BPP w non-stress HISTORY: O41.03X0 OLIGOHYRDAMINOS COMPARISON: No relevant comparison available. TECHNIQUE: Ultrasound biophysical profile was performed in the radiology department. FINDINGS: BREATHING MOVEMENTS: 2.0 GROSS BODY MOVEMENTS: 2.0 TONE: 2.0 QUALITATIVE AMNIOTIC FLUID VOLUME: 2.0 PRESENTATION: CEPHALIC HEART RATE: 142.9 bpm H.B./min AMNIOTIC FLUID VOLUME: 10.2 cm cm GESTATIONAL AGE: 32 weeks 0 days CONCLUSION: Total biophysical profile score: 8.0 Electronically authenticated by: RAFY MALONEY Date: 11/15/2022 05:03 Dictated By: Rafy Maloney M.D. Signed By:11/15/22505 DD/ 2 TD/TT: E Commerce Strategist: Authorizing ProviderResult TypeResult StatusCorey Michelet DOCLINISYNC IMAGINGFinal Result documented in this encounter Visit Diagnoses Not on filedocumented in this encounter Care Teams Team MemberRelationshipSpecialtyStart DateEnd Date Chen Lucai MD [address] [place] [address] PCP - GeneralFamily Medicine08/02/22documented as of this encounter
--- OUTSIDE RECORDS SUMMARY | 2024-12-31 18:54 | XMS_ITS | Encounter Summary ---
Author Organization [facility] Address [address] [place] [address] Care Team Providers Care Support Service Tech Name Role Phone Chen Lucia MD Primary Care Provider [phone] Encounter Details DateTypeDepartmentCare Team (Latest Contact Info)Xalqzcglrjf73/27/2023Clinisync Result Encounter [facility] External Department Unsolicited Gigi Tafoya, DO [address] [place], [place] [address] Social History Tobacco UseTypesPacks/DayYears UsedDateSmoking Tobacco: NeverSmokeless Tobacco: NeverAlcohol UseStandard Drinks/WeekCommentsNever0 (1 standard drink = 0.6 oz pure alcohol)CommentsNoSex and Gender InformationValueDate RecordedSex Assigned at BirthNot on fileLegal TwqUkewtf53/15/2023 11:22 PM EDTGender IdentityNot on fileSexual OrientationNot on filedocumented as of this encounter Plan of Treatment Not on file documented as of this encounter Procedures Procedure NamePriorityDate/TimeAssociated DiagnosisCommentsUS BREAST LT LIMITED 01/23/2023 10:13 AM EST documented in this encounter Results * US BREAST LT LIMITED (01/23/2023 10:13 AM EST)Anatomical RegionLaterality ModalityOtherSpecimen (Source)Anatomical Location / LateralityCollection Method / VolumeCollection TimeReceived Time01/23/2023 10:13 AM EST Narrative 01/23/2023 10:13 AM EST [facility] ?[address] ? [place] [address] ? Ultrasound Report ? Signed ? Patient: SAMIRA,KEYSHA R ? MR#: [id number] ?? : 1995 ?Acct:[id number] ?? Age/Sex: 27 / F ?ADM Date: ?? Loc: [facility] ??252-1 ? Attending Dr: Gigi Tafoya D.O. ? Ordering Physician: Gigi Tafoya D.O. ?? Date of Service: 01/21/23 ?? Procedure(s): US breast LT limited ?? Accession Number(s): [id number] ? cc: Gigi Tafoya D.O.; CHEN LUCIA ? Patient Name: ? KEYSHA GARDNER ? MR#: [id number] ? : 1995 ? Exam Date: 01/21/2023 ?? Ordering Doctor: DR Gigi Tafoya . ? RADIOLOGY REPORT ? PROCEDURE: ? US BREAST LT LIMITED ? COMPARISON: ? None. ? INDICATIONS: ? procedure ? TECHNIQUE: ? Breast ultrasound was performed, with evaluation focusing only ?? on specific areas of concern. ? FINDINGS: ? DIAGNOSTIC CATEGORY 3--PROBABLY BENIGN FINDING. ??THE FOLLOWING FINDING(S) HAS ?? A HIGH PROBABILITY OF A BENIGN ETIOLOGY: ? LEFT BREAST: ??5 still-images were presented for review and demonstrate ?? aspiration of a small amount of contents from heterogeneous area within left ?? breast 11 o'clock position suspected to represent an abscess. ??Aspiration was ?? performed by Dr. Bernard. ? RECOMMENDATIONS: ? SHORT TERM FOLLOW-UP ULTRASOUND LEFT BREAST IN 2 MONTHS. ? Pathology results are pending. ? PLEASE NOTE: ??A NORMAL ULTRASOUND EXAMINATION DOES NOT EXCLUDE THE POSSIBILITY ?? OF BREAST CANCER. ??A CLINICALLY SUSPICIOUS PALPABLE LUMP SHOULD BE BIOPSIED. ? Dictated by: Obi Plascencia M.D. on 01/23/2023 at 10:09 ? Approved by: Obi Plascencia M.D. on 01/23/2023 at 10:13 ? Dictated By: ?Obi Plascencia M.D. ? Signed By: ?01/23/23 1014 ? DD/ 1013 ? TD/TT: ? Insurance Claims Supervisor: Procedure Note Radiology, Radiologist, MD - 01/23/2023 [place] [address] Ultrasound Report Signed Patient: KEYSHA GARDNER R#: [id number] : 1995Acct:[id number] Age/Sex: 27 M Date: Loc: [facility] 252-[address]: Gigi Tafoya D.O. Ordering Physician: Gigi Tafoya D.O. Date of Service: 01/21/23 Procedure(s): US breast LT limited Accession Number(s): [id number] cc: Gigi Tafoya D.O.; CHEN LUCIA Patient Name: KEYSHA GARDNER MR#: [id number] : 1995 Exam Date: 01/21/2023 Ordering Doctor: DR Gigi Tafoya . RADIOLOGY REPORT PROCEDURE: US BREAST LT LIMITED COMPARISON: None. INDICATIONS: procedure TECHNIQUE: Breast ultrasound was performed, with evaluation focusingonly on specific areas of concern. FINDINGS: DIAGNOSTIC CATEGORY 3--PROBABLY BENIGN FINDING. THE FOLLOWING FINDING(S)HAS A HIGH PROBABILITY OF A BENIGN ETIOLOGY: LEFT BREAST: 5 still-images were presented for review and demonstrate aspiration of a small amount of contents from heterogeneous area withinleft breast 11 o'clock position suspected to represent an abscess. Aspirationwas performed by Dr. Bernard. RECOMMENDATIONS: SHORT TERM FOLLOW-UP ULTRASOUND LEFT BREAST IN 2 MONTHS. Pathology results are pending. PLEASE NOTE: A NORMAL ULTRASOUND EXAMINATION DOES NOT EXCLUDE THEPOSSIBILITY OF BREAST CANCER. A CLINICALLY SUSPICIOUS PALPABLE LUMP SHOULD BEBIOPSIED. Dictated by: Obi Plascencia M.D. on 01/23/2023 at 10:09 Approved by: Obi Plascencia M.D. on 01/23/2023 at 10:13 Dictated By: Obi Plascencia M.D. Signed By:01/23/23 1014 DD/ 1013 TD/TT: Insurance Claims Supervisor: Authorizing ProviderResult TypeResult StatusCorey Michelet DOCLINISYNC IMAGINGFinal Result documented in this encounter Visit Diagnoses Not on filedocumented in this encounter Care Teams Team MemberRelationshipSpecialtyStart DateEnd Date Chen Lucia MD [address] [place] [address] PCP - GeneralFamily Medicine08/02/22documented as of this encounter
--- OUTSIDE RECORDS SUMMARY | 2024-12-31 18:54 | XMS_ITS | Encounter Summary ---
Author Organization [facility] Address [address] [place] [address] Care Team Providers Care Subsurface Augmentee Elint Operator Name Role Phone Hector Bates MD Primary Care Provider [phone] Encounter Details DateTypeDepartmentCare Team (Latest Contact Info)Xeuutliakaq31/20/2025Telephone [facility] [address] [place] [address] [place] [address] Wendi Gandhi LPN Social History Tobacco UseTypesPacks/DayYears UsedDateSmoking Tobacco: NeverSmokeless Tobacco: NeverAlcohol UseStandard Drinks/WeekCommentsNever0 (1 standard drink = 0.6 oz pure alcohol)CommentsNoSex and Gender InformationValueDate RecordedSex Assigned at BirthNot on fileLegal XpjOjuwnn98/15/2023 11:22 PM EDTGender IdentityNot on fileSexual OrientationNot on filedocumented as of this encounter Miscellaneous Notes * Telephone Encounter - Wendi Gandhi LPN - 12/16/2024 3:45 PM EDT Refer to [facility]--ss Dr. Kinsey documented in this encounter Plan of Treatment Not on file documented as of this encounter Visit Diagnoses Not on filedocumented in this encounter Care Teams Team MemberRelationshipSpecialtyStart DateEnd Date Hector Bates MD [address] [place] [address] [facility]CP - [facility]arl[facility] Medicine08/02/22documented as of this encounter
--- OUTSIDE RECORDS SUMMARY | 2024-12-31 18:54 | XMS_ITS | Clinical Summary ---
Author Organization [facility] Address [address] [place] [address] Care Team Providers Care Brine Supervisor Name Role Phone Lore Rodriguez MD Primary Care Provid er Allergies Active AllergyReactionsCriticalityNoted DateCommentsSulfa (Sulfonamide Antibiotics)Hives10/02/2020 Medications MedicationSigDispense QuantityRefillsLast FilledStart DateEnd DateStatus levothyroxine (SYNTHROID, LEVOTHROID) 150 MCG tablet Take 150 mcg by mouth once daily .Active albuterol (PROVENTIL) 2.5 mg /3 mL (0.083 %) nebulizer solution Inhale 2.5 mg as needed .Active cetirizine (ZYRTEC) 10 MG tablet Take 10 mg by mouth as needed .Active montelukast (SINGULAIR) 10 mg tablet Take 10 mg by mouth every night at bedtime .Active SUMAtriptan (IMITREX) 100 MG tablet Take 100 mg by mouth as needed .Active triamcinolone (KENALOG) 0.1 % cream Apply 1 application topically as needed .06/29/2015Active Active Problems No known active problems Social History Tobacco UseTypesPacks/DayYears UsedDateSmoking Tobacco: NeverSmokeless Tobacco: NeverAlcohol UseStandard Drinks/WeekCommentsYes0 (1 standard drink = 0.6 oz pure alcohol)occasional socialCommentsUnknownSex and Gender InformationValue Date RecordedSex Assigned at BirthNot on fileLegal KoaJmpcvp96/28/2020 1:47 PM EDTGender IdentityNot on fileSexual OrientationNot on file Last Filed Vital Signs Vital SignReadingTime TakenCommentsBlood Bgkcvtpn661/8108 8:12 AM EDT Hpufq7597 8:12 AM ZYRPhzsarlgidv73.4 ??C (97.5 ??F)10/23/2020 8:12 AM EDTRespiratory Rate--Oxygen Saturation--Inhaled Oxygen Concentration--Smswol96 kg (150 lb)10/23/2020 8:12 AM KHFAjywte917.8 cm (5' 10 )10/23/2020 8:12 AM EDT Body Mass Index21.52010/23/2020 8:12 AM EDT Plan of Treatment Health MaintenanceDue DateLast DoneCommentsWellness Visit1997Depression Screening/Follow-Up (PHQ-2/9)2006Varicella Vaccines (1 of 2 - 13+ 2-dose series)06/08/2007HIV Eifeeqdrm02/11/2010Hepatitis C Njmfsxmmk13/11/2013Pap Smear 06/08/2015HPV Vaccines (1 - 3-dose SCDM series)2Cervical Cancer Efixqpxbm69/11/2025HPV/Mdkcsx035COVID-19 Vaccine ( - 2024- season) 2024Influenza Vaccine (#1)Tetanus/Diphtheria/Pertussis (2 - Td or Tdap)Zoster Vaccines (1 of 2)2044RSV Vaccines (1 - 1-dose 75+ series)2069Hepatitis B VaccinesCompleted 09/06/1995, 1995, 1994MMR HufvwgriQztzufrfi76/03/1999, 09/06/1995HIB VaccinesAged OutNo longer eligible based on patient's age to complete this topic Hepatitis A VaccinesAged OutNo longer eligible based on patient's age to complete this topicIPV VaccinesAged OutNo longer eligible based on patient's age to complete this topicMeningococcal ACWY VaccineAged OutNo longer eligible based on patient's age to complete this topicMeningococcal B VaccineAged OutNo longer eligible based on patient's age to complete this topicPneumococcal VaccineAged OutNo longer eligible based on patient's age to complete this topicRotavirus VaccinesAged OutNo longer eligible based on patient's age to complete this topic Insurance * Guarantor: Makenna GardnerAccount TypeRelation to PatientDate of BirthPhone Billing AddressPersonal/MqzeavBvue87/11/1996 [phone] (Home) [address] [place] [address] Care Teams Team MemberRelationshipSpecialtyStart DateEnd Date Lore Rodriguez MD [address] [place] [address] PCP - GeneralFamily Medicine10/02/20
--- OUTSIDE RECORDS SUMMARY | 2024-12-31 18:54 | XMS_ITS | Encounter Summary ---
Author Organization [facility] Address [address] [place] [address] Care Team Providers Care Water Quality Tester Name Role Phone Hector Bates MD Primary Care Provider Encounter Details DateTypeDepartmentCare Team (Latest Contact Info)Xsctdxddfuz91/04/2025Bamboo flowsheet [facility] [address] [place] [phone] Gigi Tafoya DO [address] [place], [place] [address] Social History Tobacco UseTypesPacks/DayYears UsedDateSmoking Tobacco: NeverSmokeless Tobacco: NeverAlcohol UseStandard Drinks/WeekCommentsNever0 (1 standard drink = 0.6 oz pure alcohol)CommentsNoSex and Gender InformationValueDate RecordedSex Assigned at BirthNot on fileLegal JjhRjvrzh88/15/2023 11:22 PM EDTGender IdentityNot on fileSexual OrientationNot on filedocumented as of this encounter Plan of Treatment Not on file documented as of this encounter Visit Diagnoses Not on filedocumented in this encounter Care Teams Team MemberRelationshipSpecialtyStart DateEnd Date Hector Bates MD [address] [place], [place] [address] PCP - GeneralFamily Medicine08/02/22documented as of this encounter
--- OUTSIDE RECORDS SUMMARY | 2024-12-31 18:54 | XMS_ITS | Encounter Summary ---
Author Organization [facility] Address [address] [place] [address] Care Team Providers Care Tool Procurement Coordinator Name Role Phone Chen Lucia MD Primary Care Provider [phone] Encounter Details DateTypeDepartmentCare Team (Latest Contact Info)Vjjsejuqzux47/20/2024Clinisync Result Encounter [facility] External Department Unsolicited Gigi Tafoya, DO [address] [place] [address] Social History Tobacco UseTypesPacks/DayYears UsedDateSmoking Tobacco: NeverSmokeless Tobacco: NeverAlcohol UseStandard Drinks/WeekCommentsNever0 (1 standard drink = 0.6 oz pure alcohol)CommentsNoSex and Gender InformationValueDate RecordedSex Assigned at BirthNot on fileLegal EamOcfngt56/15/2023 11:22 PM EDTGender IdentityNot on fileSexual OrientationNot on filedocumented as of this encounter Plan of Treatment Not on file documented as of this encounter Procedures Procedure NamePriorityDate/TimeAssociated DiagnosisCommentsBI US BREAST COMPLETE LEFT04/18/2023 2:33 PM EST documented in this encounter Results * Left breast US complete (04/18/2023 2:33 PM EST)Anatomical RegionLaterality ModalityBreastLeftUltrasoundSpecimen (Source)Anatomical Location / Laterality Collection Method / VolumeCollection TimeReceived Time04/18/2023 2:33 PM EST Narrative 04/18/2023 2:34 PM EST [facility] ?[address] ? [place] [address] ? Ultrasound Report ? Signed ? Patient: SAMIRA,KEYSHA R ? MR#: [id number] ?? : 1995 ?Acct:[id number] ?? Age/Sex: 27 / F ?ADM Date: 02/20/24 ?? Loc: US ? Attending Dr: Gigi Tafoya D.O. ? Ordering Physician: Gigi Tafoya D.O. ?? Date of Service: 04/18/23 ?? Procedure(s): US breast LT complete ?? Accession Number(s): [id number] ? cc: Gigi Tafoya D.O.; CHEN LUCIA ? Patient Name: ? KEYSHA GARDNER ? MR#: [id number] ? : 1995 ? Exam Date: 04/18/2023 ?? Ordering Doctor: DR Gigi Tafoya . ? RADIOLOGY REPORT ? PROCEDURE: ? US BREAST LT COMPLETE ? COMPARISON: ? US BREAST LT LIMITED, 01/21/2023. ??US BREAST LT COMPLETE, ?? 01/20/2023. ? INDICATIONS: ? left breast abscess N61.1 ? TECHNIQUE: ? Breast ultrasound was performed, with evaluation focusing only ?? on specific areas of concern. ? FINDINGS: ? DIAGNOSTIC CATEGORY 3--PROBABLY BENIGN FINDING. ??THE FOLLOWING FINDING(S) HAS ?? A HIGH PROBABILITY OF A BENIGN ETIOLOGY: ? LEFT BREAST: ??Clearing of previously seen abscess with mild residual scarring. ?? Incidental small benign appearing lymph node. ??Nonspecific nodule versus ?? complex cyst the 4 o'clock position, 7 millimeters diameter of doubtful ?? clinical significance. ??As a precautionary measure consider follow-up ?? ultrasound evaluation in 6 months to document stability. ??If stable at that ?? time, no additional follow-up recommended after that. ? RECOMMENDATIONS: ? SHORT TERM FOLLOW-UP ULTRASOUND LEFT BREAST IN 6 MONTHS. ? PLEASE NOTE: ??A NORMAL ULTRASOUND EXAMINATION DOES NOT EXCLUDE THE POSSIBILITY ?? OF BREAST CANCER. ??A CLINICALLY SUSPICIOUS PALPABLE LUMP SHOULD BE BIOPSIED. ? Dictated by: Obi Plascencia M.D. on 04/18/2023 at 14:28 ? Approved by: Obi Plascencia M.D. on 04/18/2023 at 14:33 ? Dictated By: ?Obi Plascencia M.D. ? Signed By: ?04/18/23 1434 ? DD/ ? TD/TT: ? Shrimp Peeling Machine Tender: Procedure Note Radiology, Radiologist, - 05/03/2023 [place] [address] Ultrasound Report Signed Patient: KEYSHA GARDNER RMR#: [id number] : 1995Acct:[id number] Age/Sex: 27 / FADM Date: 04/18/23 Loc: US Attending Dr: Gigi Tafoya D.O. Ordering Physician: Gigi Tafoya D.O. Date of Service: 04/18/23 Procedure(s): US breast LT complete Accession Number(s): [id number] cc: Gigi Tafoya D.O.; CHEN LUCIA Patient Name: KEYSHA GARDNER MR#: [id number] : 1995 Exam Date: 04/18/2023 Ordering Doctor: DR Gigi Tafoya . RADIOLOGY REPORT PROCEDURE: US BREAST LT COMPLETE COMPARISON: US BREAST LT LIMITED, 01/21/2023. US BREAST LT COMPLETE, 01/20/2023. INDICATIONS: left breast abscess N61.1 TECHNIQUE: Breast ultrasound was performed, with evaluation focusingonly on specific areas of concern. FINDINGS: DIAGNOSTIC CATEGORY 3--PROBABLY BENIGN FINDING. THE FOLLOWING FINDING(S)HAS A HIGH PROBABILITY OF A BENIGN ETIOLOGY: LEFT BREAST: Clearing of previously seen abscess with mild residualscarring. Incidental small benign appearing lymph node. Nonspecific nodule versus complex cyst the 4 o'clock position, 7 millimeters diameter of doubtful clinical significance. As a precautionary measure consider follow-up ultrasound evaluation in 6 months to document stability. If stable atthat time, no additional follow-up recommended after that. RECOMMENDATIONS: SHORT TERM FOLLOW-UP ULTRASOUND LEFT BREAST IN 6 MONTHS. PLEASE NOTE: A NORMAL ULTRASOUND EXAMINATION DOES NOT EXCLUDE THEPOSSIBILITY OF BREAST CANCER. A CLINICALLY SUSPICIOUS PALPABLE LUMP SHOULD BEBIOPSIED. Dictated by: Obi Plascencia M.D. on 04/18/2023 at 14:28 Approved by: Obi Plascencia M.D. on 04/18/2023 at 14:33 Dictated By: Obi Plascencia M.D. Signed By:04/18/23 1434 DD/ 1433 TD/TT: Shrimp Peeling Machine Tender: Authorizing ProviderResult TypeResult StatusCorey Michelet [facility] PROCEDURESFinal Result documented in this encounter Visit Diagnoses Not on filedocumented in this encounter Care Teams Team MemberRelationshipSpecialtyStart DateEnd Date Chen Lucia MD [address] [place] [address] PCP - GeneralFamily Medicine08/02/22documented as of this encounter
--- OUTSIDE RECORDS SUMMARY | 2024-12-31 18:55 | XMS_ITS | Encounter Summary ---
Author Organization [employer] [facility] tem Address [id number] [address] [place] [address] Care Team Providers Care Android Architect Name Role Phone Pavelgodfreygeemark Ladan SPINNING LATHE OPERATOR AUTOMATIC-WASTEWATER PROJECT ENGINEER Primary Care Provide r Encounter Details DateTypeDepartmentCare Team (Latest Contact Info)Gygvvuibhsa08/04/2025Travel Social History Tobacco UseTypesPacks/DayYears UsedDateSmoking Tobacco: NeverPassive Smoke Exposure: NeverSmokeless Tobacco: NeverAlcohol UseStandard Drinks/WeekComments Not Currently0 (1 standard drink = 0.6 oz pure alcohol)PHQ-2AnswerDate Recorded Total Uhtmv189/04/2025ChildcareAnswerDate XcdzwdqjCxengbzpsKbclzfn36/26/2020 EmploymentAnswerDate MouhtkfdFvjwbnhcdrQlfafms19/26/2020Hunger ScreeningAnswer Date RecordedWithin the past 12 months we worried whether our food would run out before we got money to buy more.Never True03/20/2024Within the past 12 months the food we bought just didn't last and we didn't have money to get more.Never True03/20/2024Purpose - LifeAnswerDate RecordedPurpose and direction in life Wqnvriu11/11/2021CommentsNoSex and Gender InformationValueDate Recorded Sex Assigned at BirthNot on fileLegal JwkZnwbki17/26/2020 4:03 PM ESTGender IdentityNot on fileSexual OrientationNot on filedocumented as of this encounter Plan of Treatment DateTypeDepartmentCare Team (Latest Contact Info)Mobdnmtwxud72/20/2026 2:30 PM ESTOffice Visit [facility] [address] [place] [phone] Hilary Briscoe MD [address] [place] [address] 01/01/2026 4:00 PM ESTOffice Visit [facility] [address] [place] [address] Ladan Aquino APRN-CNP [address] [place] [address] documented as of this encounter Visit Diagnoses Not on filedocumented in this encounter Additional Health Concerns AssessmentNoted TimePHQ-9 Depression Total Score: 8:05 AM EST documented as of this encounter Care Teams Team MemberRelationshipSpecialtyStart DateEnd Date Ladan Aquino APRN-CNP [address] [place] [address] PCP - GeneralFamily Medicine10/02/24documented as of this encounter
--- OUTSIDE RECORDS SUMMARY | 2024-12-31 18:55 | XMS_ITS | Encounter Summary ---
Author Organization [facility] tem Address [id number] [address] [place] [address] Care Team Providers Care Tufter Name Role Phone Ladan Aquino STOCK PULLER-TECHNICAL APPLICATIONS SPECIALIST Primary Care Provide r Encounter Details DateTypeDepartmentCare Team (Latest Contact Info)Awkisdetuik26/20/2025Results Follow-Up [facility] [address] [place] [phone] Hilary Briscoe MD [address] [facility] [place] [address] TSH with Reflex Social History Tobacco UseTypesPacks/DayYears UsedDateSmoking Tobacco: NeverPassive Smoke Exposure: NeverSmokeless Tobacco: NeverAlcohol UseStandard Drinks/WeekComments Not Currently0 (1 standard drink = 0.6 oz pure alcohol)ChildcareAnswerDate PatdvvunPrdebckzsFxewmmk47/26/2020EmploymentAnswerDate RecordedEmploymentUnknown 04/24/2019Hunger ScreeningAnswerDate RecordedWithin the past 12 months we worried whether our food would run out before we got money to buy more.Never True03/20/2024Within the past 12 months the food we bought just didn't last and we didn't have money to get more.Never True03/20/2024Purpose - LifeAnswerDate RecordedPurpose and direction in kzuiXodjbbr04/11/2021CommentsNoSex and Gender InformationValueDate RecordedSex Assigned at BirthNot on fileLegal Sex Mxnpke5104/24/2019 4:03 PM ESTGender IdentityNot on fileSexual OrientationNot on filedocumented as of this encounter Plan of Treatment DateTypeDepartmentCare Team (Latest Contact Info)Fexutubbrui83/20/2026 2:30 PM ESTOffice Visit [facility] [address] [place] [address] Hilary Briscoe MD [address] [facility] [address] [place] [address] 01/01/2026 4:00 PM ESTOffice Visit [facility] [address] [place] [phone] Ladan Aquino APRN-CNP [address] [place] [address] documented as of this encounter Visit Diagnoses Not on filedocumented in this encounter Care Teams Team MemberRelationshipSpecialtyStart DateEnd Date Ladan Aquino APRN-CNP [address] [place], [place] [phone] PCP - GeneralFamily Medicine10/02/24documented as of this encounter
--- OUTSIDE RECORDS SUMMARY | 2024-12-31 18:55 | XMS_ITS | Clinical Summary ---
Author Organization [facility] Address [address] [place], [place] [id number] Care Team Providers Care Supervisor Baking Name Role Phone Hector Bates MD Primary Care Provider [phone] Allergies Active AllergyReactionsCriticalityNoted DateCommentsSulfa (Sulfonamide Antibiotics)Hives08/20/2015 Medications MedicationSigDispense QuantityRefillsLast FilledStart DateEnd DateStatus albuterol HFA (PROVENTIL HFA, VENTOLIN HFA) 90 mcg/actuation inhaler Inhale 2 Puffs as instructed every 6 hours. 1 Inhaler 05/13/2016Active albuterol (PROVENTIL) 2.5 mg /3 mL (0.083 %) nebulizer solution Use 2.5 mg via nebulizer as needed.Active metoprolol tartrate, short acting, (LOPRESSOR) 25 mg tablet Take 25 mg by mouth as needed.1Active vit no.124/iron/folic ( VITAMIN ORAL) Take by mouth.Active levothyroxine (SYNTHROID) 175 mcg tablet Indications:Hypothyroidism due to Monica's thyroiditisM through Saturdays: Take one whole tablet. Each Monday: Take one and one-half tablets. All by mouth. 100 tablet 4Active Active Problems ProblemNoted DateDiagnosed DateUreteropelvic junction (UPJ) obstruction 04/28/2016Right flank pain09/26/2014Hypothyroidism due to Monica's thyroiditis Resolved Problems ProblemNoted DateDiagnosed DateResolved DateGoiter, zwqkjce6305/20/2021 Overview (08/19/2015): 2000: Around this time, age ~5 (first grade) was found to have hypothyroidism. Per patient, pediatricia felt lump in neck . 2000: Ultrasound of thyroid, at outside hospital: I dont have this to review. 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 Started on a dose of levothyroxine. 1815-7520: Followed by pediatric endocrinology. Multiple ultrasound studies. No fine needle aspiration biopsy , per patient. 04/2014: Started oral contraceptive pills. 07/2014: TSH 3.960 (0.358-3.740 uIU/mL), free T4 1.52 (0.76-1.46 ng/dL), free T3 2.4 (2.2-4.0 pg/ml), on levothyroxine 137 mcg daily. I increased to levothyroxine 150 mcg daily. 07/2014: Thyroid peroxidase antibodies 822.0 (0.0-60.0 IU/ml), Thyroglobulin antibodies 107.2 (0.0-60.0 IU/mL), 07/2014: Ultrasound: Heterogeity of the gland. Right lobe 54.5 x 19.0 x 13.0 mm (length, width, depth) left lobe 62.7 x 16.9 x 10.7 mm (length, width, depth) Isthmus 2.5 mm depth. Right lower pole deep small lesion 2.7 x 2.3 x 2.3 mm (length, width, depth) Hyper-echoic solid-appearing lesion, good borders, no calcifications, no abnormal intra-nodular vascular patterns. No suspicious nodes in neck (right and left) levels VII, , IV, III, IIa, IIb. 10/2014: TSH 1.300 (0.358-3.740 uIU/mL), free T4 1.36 (0.76-1.46 ng/dL), on levothyroxine 150 mcg daily. Monica's mtdcmlu0405/20/2021 Overview (08/20/2015): dignosed at age 4 Gprizpmnihgydu47/24/2022 Family History Medical HistoryRelationCommentsAsthmaMaternal GrandfatherThyroidMaternal GrandfatherUnclear thyroid issueCrohn's DiseaseMaternal GrandmotherLymphoma Maternal GrandmotherSystemic Lupus ErythematosusMaternal GrandmotherGall Stones MotherDiabetesPaternal GrandfatherDiabetesPaternal GrandmotherAsthmaSisterHeart SisterDysrhythmia, tonya issueRelationStatusCommentsMaternal GrandfatherMaternal GrandmotherMotherPaternal GrandfatherPaternal GrandmotherSister Social History Tobacco UseTypesPacks/DayYears UsedDateSmoking Tobacco: NeverSmokeless Tobacco: Never Tobacco Cessation:Counseling Given: Not Answered Alcohol UseStandard Drinks/WeekCommentsNo0 (1 standard drink = 0.6 oz pure alcohol)Area Deprivation IndexAnswerDate RecordedNational Score (1-100), lower number is lower riskNot on file02/04/2020State Score (1-10), lower number is lower riskNot on file02/04/2020Data from: https://www.neighborhoodatlas.medicine.[facility].edu/. Last address used for calculationNot on file02/04/2020CommentsNoSex and Gender Information ValueDate RecordedSex Assigned at WojcsYnjkxn94/09/2021 9:05 PM EDTLegal Sex Yywbtg6101/29/2012 9:51 AM ESTGender OfkgazycPkxtyc16/09/2021 9:05 PM EDTSexual AbomwdrpepfAexkiitg03/09/2021 9:05 PM EDTOccupationIndustryJob Start DateJob End DatePharmacy student -graduated 2019Not on fileNot on fileNot on filePost grad work - DoneNot on fileNot on fileNot on filePharmDNot on fileNot on fileNot on file Last Filed Vital Signs Vital SignReadingTime TakenCommentsBlood Pgcdvbyo024/7704 9:00 AM EDT Zfgmg1231 9:00 AM MHDEkwzkzpgbhx72.8 ??C (98.2 ??F)04/29/2016 10:27 AM ESTRespiratory Erjo865405/13/2016 2:39 PM EDTOxygen Tgpfvfedko128%06/03/2020 9:05 AM EDTInhaled Oxygen Concentration--Cfceqr18 kg (172 lb)06/12/2023 9:00 AM EDT Cytesp529.8 cm (5' 10 )06/12/2023 9:00 AM EDTBody Mass Index24.68006/12/2023 9:00 AM EDT Plan of Treatment Health MaintenanceDue DateLast DoneCommentsAnnual PCP Team Chronic Disease Visit 2012nxiety Pfsrvissw25/11/2013Depression Fnbizulkx35/11/2013HIV Screening 2012Hepatitis C Dwsurlpth12/11/2013Cervical Cancer Gxhwanecu88/11/2016HPV Vaccine (1 - 3-dose SCDM series)2Covid-19 Vaccine (3 - season) /, 01/19/2021Influenza Vaccine (#1)/ DTaP,Tdap,Td Vaccine (8 - Td or Tdap)/, 10/07/2016, 09/18/2006, Additional history existsHepatitis B KedpzntXjyupxztn00/10/1996, 1994, 1994 Medical Devices ImplantedTypeAreaManufacturerDevice IdentifierShelf Expiration DateModel / Serial / LotStent Inlay [place] 7fr Taper [place] Green Phreecoat Polymer 28cm Ureteral - [id number] Implanted:Qty: 1 on 04/28/2016 at [facility] StentsRight: Ureter [employer] [id number] / / [id number] Insurance Care Teams Team MemberRelationshipSpecialtyStart DateEnd Date Hector Bates MD [facility]
--- OUTSIDE RECORDS SUMMARY | 2024-12-31 18:55 | XMS_ITS | Clinical Summary ---
Author Organization [facility] Address [address] [place] [address] Phone Care Team Providers Care Engine Mechanic Name Role Phone Lore Rodriguez MD Primary Care Provider Social History Tobacco UseTypesPacks/DayYears UsedDateSmoking Tobacco: Never Assessed CommentsUnknownSex and Gender InformationValueDate RecordedSex Assigned at Not on fileLegal CqaVmxvkc05/25/2022 8:28 PM ESTGender IdentityNot on fileSexual OrientationNot on file Last Filed Vital Signs Vital SignReadingTime TakenCommentsBlood Rkhnfgzt651/8105/05/2022 8:55 AM EST Hmnue50990/09/2023 8:55 AM KDQUfpyjzvlnis52 ??C (96.8 ??F)12/12/2019 2:58 PM EDT Respiratory Rate--Oxygen Saturation--Inhaled Oxygen Concentration--Niuxls86.8 kg (156 lb)05/05/2022 8:55 AM BOOBubekf136.3 cm (5' 11 )05/05/2022 8:55 AM ESTBody Mass Index21.76005/05/2022 8:55 AM EST Plan of Treatment Health MaintenanceDue DateLast DoneCommentsHIV Bbjmlhtbt63/11/1995Lipid Panel 1994Yearly Adult Xxniycum58/11/1995MMR Vaccines (1 of 1 - Standard series) 06/08/1995Hepatitis C Ronlabiqb56/11/2013Hepatitis B Vaccines (1 of 3 - 19+ 3- dose series)2013Pneumococcal Vaccine: Pediatrics and At-Risk Adult Patients (1 of 2 - PCV)2013HPV/Mohvma9306/08/2015DTaP/Tdap/Td Vaccines (1 - Tdap)2016HPV Vaccines (1 - 3-dose standard series)2021TSH Level 409/, 10/20/2022, 09/16/2022, Additional history existsInfluenza Vaccine (#1)5COVID-19 Vaccine (1 - 2024- season)5Cervical Cancer Ovhanzsss59/14/2025Pap Smear/, 11/24/2017, 08/22/2016 Zoster Vaccines (1 of 2)2044HIB VaccinesAged OutNo longer eligible based on patient's age to complete this topicHepatitis A VaccinesAged OutNo longer eligible based on patient's age to complete this topicIPV VaccinesAged OutNo longer eligible based on patient's age to complete this topicMeningococcal VaccineAged OutNo longer eligible based on patient's age to complete this topic Rotavirus VaccinesAged OutNo longer eligible based on patient's age to complete this topic Procedures Procedure NamePriorityDate/TimeAssociated YmagchsvhKixfgdjlSLHAlnhqid97/16/2020 4:10 PM EDT CONVERTED PACKAGING SALES REPRESENTATIVE UXRVWNSNGdlsbnp48/28/2018 12:00 AM EDT from Last 3 Months or Most Recently Relevant to Health Maintenance Results * (ABNORMAL) Thyroid Stimulating Hormone (06/13/2019 4:10 PM EDT)ComponentValue Ref RangeTest MethodAnalysis TimePerformed AtPathologist SignatureTSH0.19(L) 0.44 - 3.98 mIU/[facility] LABComment: ?? Note new pediatric reference range as of 05/02/2019. TSH testing is performed using different testing methodology at [facility] than at other [facility]. Direct result comparisons should only be made within the same method. Specimen (Source)Anatomical Location / LateralityCollection Method / Volume Collection TimeReceived Time06/13/2019 4:10 PM EDT06/13/2019 4:15 PM EDT Narrative Authorizing ProviderResult TypeResult StatusMichael Rey Leroy MDLAB BLOOD ORDERABLESFinal ResultPerforming OrganizationAddressCity/State/ZIP CodePhone Number [facility] * CONVERTED PACKAGING SALES REPRESENTATIVE CYTOLOGY (11/24/2017 12:00 AM EDT)ComponentValueRef RangeTest MethodAnalysis TimePerformed AtPathologist SignaturePathology Report ? Date of Procedure: ??11/24/2017 ? Pathologist: Date Reported: 11/30/2017 Date Received: ??11/28/2017 Submitting Physician: ? Other Related Clinical Data SoftPath Conversion Details (10/07/2019) CoPath Accession #: ? [id number] SoftPath Accession #: ? [id number] SoftPath Billing #: ?[id number] Requesting Provider: ?DELMI JERRY Procedure Date: ? 11/24/2017 Ordered: ?11/28/2017 10:26 AM Signed Out: ? 11/30/2017 10:38 AM Case Pathologist: ? TOAN NOVAK M.D. Signout-Clerical: ? TOAN NOVAK M.D. Case Type: ?PACKAGING SALES REPRESENTATIVE Cytology Case Priority: ?Routine Diagnosis Type: ? Normal Status History: 11/28/2017 10:28 AM ??Processing Completion ?TWILA CHEATHAM 11/28/2017 10:28 AM ??Spec. Process. Entry ? TWILA CHEATHAM 11/28/2017 10:35 AM ??Slide Staining ? TWILA CHEATHAM 11/29/2017 09:50 AM ??Edit Final DGN Codes ? GIANNI WEST Horticulture Teacher 11/29/2017 09:50 AM ??Final Dx Entered ? GIANNI WEST Horticulture Teacher 11/30/2017 10:38 AM ??Edit Final Dx Codes (a) ?TOAN NOVAK M.D. 11/30/2017 10:38 AM ??Edit Final DGN Codes ? TOAN NOVAK M.D. 11/30/2017 10:38 AM ??Proreview Done (GNO) ? TOAN NOVAK M.D. 11/30/2017 10:38 AM ??Sign Out (GNO) ? TOAN NOVAK M.D. 11/30/2017 10:38 AM ??Sign Out from QA Entry (GNO) ? TOAN NOVAK M.D. 11/30/2017 10:53 AM ??Result sent to HIS ?? IMAGE ? TOAN NOVAK M.D. 11/30/2017 05:44 PM ??Final Rpt Printed ?SCC 11/30/2017 07:12 PM ??Final Rpt Printed ?SCC 11/30/2017 11:35 PM ??Final Rpt Printed ?SCC 12/01/2017 07:13 PM ??Final Rpt Printed ?SCCFINAL CYTOLOGICAL INTERPRETATION FINAL GYNECOLOGIC CYTOLOGY REPORT [id number] SPECIMEN ADEQUACY Satisfactory for Evaluation. ??Endocervical cells/transformation zone component present. GENERAL CATEGORIZATION Negative for Intraepithelial Lesion or Malignancy DESCRIPTIVE DIAGNOSIS Rare Parakeratosis is present. Shift in vaginal ramila suggestive of bacterial vaginosis. Screened by GIANNI WEST Horticulture Teacher on 11/29/2017 09:50 Signed by OTAN NOVAK M.D. on 11/30/2017 10:38 Reviewed by a pathologist due to previous abnormal history. Sample has been treated with glacial acetic acid for excessive blood, debris, inflammation and/or lubricant. By the signature on this report, the individual or group listed as making the Final Interpretation/Diagnosis certifies that they have reviewed this case. Educational Note: Cervical cytology is a screening procedure primarily for squamous cancers and precursors and has associated false-negative and false-positive results as evidenced by published data. ??Your patient's test should be interpreted in this context, together with patient's history and clinical findings. ??Regular sampling and follow-up of unexplained clinical signs and symptoms are recommended to minimize false negative results. Clinical History Date of Last Menstrual Period: ? (Not Entered) Comment: No LMP provided. SPECIMEN (A) SCREENING CERVICAL/ENDOCERVICAL THIN PREP VIAL Performed at [facility], [address] [place] [id number] Source of Specimen A: SCREENING CERVICAL/ENDOCERVICAL THIN PREP VIAL [facility] Department of Pathology [address] [place] [phone] [facility] COPATHCONVERTED FINAL DIAGNOSISFINAL GYNECOLOGIC CYTOLOGY REPORT [id number] SPECIMEN ADEQUACY Satisfactory for Evaluation. ??Endocervical cells/transformation zone component present. GENERAL CATEGORIZATION Negative for Intraepithelial Lesion or Malignancy DESCRIPTIVE DIAGNOSIS Rare Parakeratosis is present. Shift in vaginal ramila suggestive of bacterial vaginosis. Screened by GIANNI WEST Horticulture Teacher on 11/29/2017 09:50 Signed by TOAN NOVAK M.D. on 11/30/2017 10:38 [facility] COPATHCONVERTED CLINICAL DIAGNOSIS-HISTORYComment: No LMP provided. SPECIMEN (A) SCREENING CERVICAL/ENDOCERVICAL THIN PREP VIAL Performed at [facility], [address] [place] [id number] [facility] COPATHCONVERTED DIAGNOSIS COMMENTReviewed by a pathologist due to previous abnormal history. Sample has been treated with glacial acetic acid for excessive blood, debris, inflammation and/or lubricant. [facility] COPATHCONVERTED OTHER RELATED CLINICAL DATASoftPath Conversion Details (10/07/2019) CoPath Accession #: ? [id number] SoftPath Accession #: ? [id number] SoftPath Billing #: ?[id number] Requesting Provider: ?DELMI JERRY Procedure Date: ? 11/24/2017 Ordered: ?11/28/2017 10:26 AM Signed Out: ? 11/30/2017 10:38 AM Case Pathologist: ? TOAN NOVAK M.D. Signout-Clerical: ? TOAN NOVAK M.D. Case Type: ?PACKAGING SALES REPRESENTATIVE Cytology Case Priority: ?Routine Diagnosis Type: ? Normal Status History: 11/28/2017 10:28 AM ??Processing Completion ?TWILA CHEATHAM 11/28/2017 10:28 AM ??Spec. Process. Entry ? TWILA CHEATHAM 11/28/2017 10:35 AM ??Slide Staining ? TWILA CHEATHAM 11/29/2017 09:50 AM ??Edit Final DGN Codes ? GIANNI WEST Horticulture Teacher 11/29/2017 09:50 AM ??Final Dx Entered ? GIANNI WEST Horticulture Teacher 11/30/2017 10:38 AM ??Edit Final Dx Codes (a) ?TOAN NOVAK M.D. 11/30/2017 10:38 AM ??Edit Final DGN Codes ? TOAN NOVAK M.D. 11/30/2017 10:38 AM ??Proreview Done (GNO) ? TOAN NOVAK M.D. 11/30/2017 10:38 AM ??Sign Out (GNO) ? TOAN NOVAK M.D. 11/30/2017 10:38 AM ??Sign Out from QA Entry (GNO) ? TOAN NOVAK M.D. 11/30/2017 10:53 AM ??Result sent to HIS ?? IMAGE ? TOAN NOVAK M.D. 11/30/2017 05:44 PM ??Final Rpt Printed ?SCC 11/30/2017 07:12 PM ??Final Rpt Printed ?SCC 11/30/2017 11:35 PM ??Final Rpt Printed ?SCC 12/01/2017 07:13 PM ??Final Rpt Printed ?[facility] COPATHCONVERTED FINAL REPORT PDF LINK TO COPY AND PASTE \copathshare\copath\PDF \[id number].pdfBROOKE [facility] COPATHSpecimen (Source) Anatomical Location / LateralityCollection Method / VolumeCollection Time Received TimeUnrecognized Part Type 10:26 AM EDT Narrative Authorizing ProviderResult TypeResult StatusCopath ConversionLAB CYTOLOGY ORDERABLESFinal ResultPerforming OrganizationAddressCity/State/ZIP CodePhone Number [facility] COPATH [address] [place] [address] from Last 3 Months or Most Recently Relevant to Health Maintenance Care Teams Team MemberRelationshipSpecialtyStart DateEnd Date Lore Rodriguez MD [facility] - Bmjzdsd63/4/19
--- OUTSIDE RECORDS SUMMARY | 2024-12-31 18:55 | XMS_ITS | Clinical Summary ---
Author Organization [employer] tem Address [id number] [address] [place] [address] Care Team Providers [facility] [place] [facility] Dem[facility]ation Agent Name Role Phone Ladan Aquino AUDIT CLERK-SACK SORTER Primary Care Provide r Allergies Active AllergyReactionsCriticalityNoted DateComments Sulfamethoxazole-XugxzbmmethePwattKkrzyu87/10/2023 Other Reaction(s): Unknown Medications MedicationSigDispense QuantityRefillsLast FilledStart DateEnd DateStatus albuterol (PROVENTIL,VENTOLIN) 2.5 mg /3 mL (0.083 %) nebulizer solution Inhale 3 mL (2.5 mg total) by nebulization daily as needed for shortness of breath or wheezing.2Active vit no.124/iron/folic ( VITAMIN ORAL) Take 1 tablet by mouth in the morning.Active albuterol (PROVENTIL HFA;VENTOLIN HFA) 90 mcg/actuation inhaler Inhale 2 puffs every 6 (six) hours as needed for wheezing.Active metFORMIN (GLUMETZA) 500 MG (MOD) 24 hr tablet Take 1 tablet (500 mg total) by mouth Daily before evening meal.Active aspirin 81 mg Take 1 tablet (81 mg total) by mouth in the morning.Active folic acid-vit B6-vit B12 (FOLBEE) 2.5-25-1 mg tablet Take 1 tablet by mouth in the morning.Active levothyroxine (SYNTHROID, LEVOTHROID) 175 MCG tablet Indications:Autoimmune thyroiditisTake 1 tablet (175 mcg total) by mouth in the morning. 90 tablet 5Active progesterone (ENDOMETRIN) 100 mg vaginal insert Insert 2 tablets (200 mg total) into the vagina in the morning and 2 tablets (200 mg total) before bedtime.12/31/2024Discontinued Active Problems ProblemNoted DateDiagnosed DatePolycystic ovary wudymsqb32/04/2025Hashimoto's ttrijwosght51/05/2023 Encounters DateTypeDepartmentCare WfccEwkbfkgvtmo23/04/2025 8:00 AM ESTOffice Visit [facility] [address] [place] [phone] Ladan Aquino APRN-DIVYA Wellness examination (Primary Dx); Polycystic ovary syndrome; Monica's nizfcfrgrcl41/04/5803Hrqrbn01/20/2025Results Follow-Up [facility] [address] [place] [id number] Hilary Briscoe MD TSH with Iebklm6412/11/20241033Udishy89/02/4551Luqspf25/06/2025Travelfrom Last 3 Months Family History Medical HistoryRelationNameCommentsHeart attackFatherHypothyroidismFather Pulmonary embolismFatherLymphomaMaternal GrandmotherNo Known ProblemsMotherLiver cancerPaternal GrandmotherRelationNameStatusCommentsFatherAliveMaternal GrandmotherAliveMotherAlivePaternal GrandmotherDeceased Social History Tobacco UseTypesPacks/DayYears UsedDateSmoking Tobacco: NeverPassive Smoke Exposure: NeverSmokeless Tobacco: Never Tobacco Cessation:Counseling Given: Not Answered Alcohol UseStandard Drinks/WeekCommentsNot Currently0 (1 standard drink = 0.6 oz pure alcohol)PHQ-2AnswerDate RecordedTotal Sscjl14803/02/2024hildcareAnswerDate JeygzlfgGqlotshvsSzroygy79/26/2020EmploymentAnswerDate RecordedEmploymentUnknown 04/24/2019Hunger ScreeningAnswerDate RecordedWithin the past 12 months we worried whether our food would run out before we got money to buy more.Never True03/20/2024Within the past 12 months the food we bought just didn't last and we didn't have money to get more.Never True03/20/2024Purpose - LifeAnswerDate RecordedPurpose and direction in rnnmXvtqqqv42/11/2021CommentsNoSex and Gender InformationValueDate RecordedSex Assigned at BirthNot on fileLegal Sex Oexuqj5704/24/2019 4:03 PM ESTGender IdentityNot on fileSexual OrientationNot on file Last Filed Vital Signs Vital SignReadingTime TakenCommentsBlood Tqqgqvnq450/6512/31/2024 8:05 AM EST Knqla451112/31/2024 8:05 AM LUQNwmqstlnysg73.6 ??C (97.8 ??F)12/31/2024 8:05 AM ESTRespiratory Ncvy2630 12:35 PM ESTOxygen Jrktcxiiej41%01/26/2023 12:35 PM ESTInhaled Oxygen Concentration--Yctecp33.6 kg (173 lb 3.2 oz)12/31/2024 8:05 AM ENQWweaez720.8 cm (5' 10 )12/31/2024 8:05 AM ESTBody Mass Index24.85 12/31/2024 8:05 AM EST Plan of Treatment DateTypeDepartmentCare Team (Latest Contact Info)Psizceublbp19/20/2026 2:30 PM ESTOffice Visit [facility] [address] [place] [address] Hilary Briscoe MD [address] [place] [address] 01/01/2026 4:00 PM ESTOffice Visit [facility] [address] [place] [address] Ladan Aquino APRN-DIVYA [address] [place] [address] Health MaintenanceDue DateLast DoneCommentsCOVID-19 Vaccine ( season) , 01/19/2021Influenza Jnbcwkm15/, 11/22/2019Pap Smear/Tobacco Egyckrshg72 Adult BMI Bgajpirwl68Depression Oqrrjrepb99 DTaP,Tdap and Td Vaccines (8 - Td or Tdap), 10/07/2016, 09/18/2006, Additional history exists Medical Devices Not on file Procedures Procedure NamePriorityDate/TimeAssociated DiagnosisCommentsTSH WITH REFLEX Fieqvxx8612/11/2024 4:45 PM EDT Autoimmune thyroiditis KSPDKJWRATNNKseeeal91/02/2025 4:53 PM EDT Autoimmune thyroiditis BWXQZZVFRWZRLgdkfof28/06/2025 8:46 AM EDT Autoimmune thyroiditis from Last 3 Months Results * TSH with Reflex (12/11/2024 4:45 PM EDT)ComponentValueRef RangeTest Method Analysis TimePerformed AtPathologist SignatureTSH1.810.49 - 4.67 uIU/mL 12/11/2024 10:48 PM [facility] (Source) Anatomical Location / LateralityCollection Method / VolumeCollection Time Received TimeBloodVenous blood / UnknownVenipuncture / Zpoevwg1912/11/2024 4:45 PM EDT1 4:45 PM EDT Narrative Authorizing ProviderResult TypeResult StatusHilary Briscoe MDLAB BLOOD ORDERABLESFinal ResultPerforming OrganizationAddressCity/State/ZIP CodePhone Number [facility] [address] [place] [address], * Progesterone (10/29/2024 4:53 PM EDT) Only the most recent of2 resultswithin the time period is included. ComponentValueRef RangeTest MethodAnalysis TimePerformed AtPathologist Signature OPPHGAABMPBX62.7ng/mL10/29/2024 9:55 PM [facility] Comment: FEMALES: 1st Tri: ??4.7-50.7 ng/ml 2nd Tri: ??19.4-45.3 ng/ml ? MENSTRUATING FEMALES: Follicular: ??0.3-1.5 ng/ml Mid Luteal: ??5.2-18.6 ng/ml Post Fatou: <0.1-0.8 ng/ml Specimen (Source)Anatomical Location / LateralityCollection Method / Volume Collection TimeReceived TimeBloodVenipuncture / Fmsyofg6210/29/2024 4:53 PM EDT 10/29/2024 4:53 PM EDT Narrative Authorizing ProviderResult TypeResult StatusCorey Berta Tafoya DOLAB BLOOD ORDERABLES Final ResultPerforming OrganizationAddressCity/State/ZIP CodePhone Number [facility] [address] [place] [address], from Last 3 Months Insurance * Guarantor: Makenna GardnerAccount TypeRelation to PatientDate of PhoneBilling AddressPersonal/PskstyXvcz71/11/[address] [place] [address] Care Teams Team MemberRelationshipSpecialtyStart DateEnd Date Ladan Aquino APRN-SACK SORTER [address] [place], [place] [id number] PCP - GeneralFamily Medicine10/02/24
--- OUTSIDE RECORDS SUMMARY | 2024-12-31 18:55 | XMS_ITS | Clinical Summary ---
Author Organization [facility] Address [address], [address] [place] [address] Care Team Providers Care Director Of Quality Control Name Role Phone Unavailable Primary Care Provider Unavailabl e Allergies Active AllergyReactionsCriticalityNoted DateCommentsSulfa AntibioticsHives 10/27/2022 Medications MedicationSigDispense QuantityRefillsLast FilledStart DateEnd DateStatus levothyroxine (SYNTHROID) 175 MCG tablet Take 1 tablet by mouth DailyActive aspirin 81 MG chewable tablet Take 1 tablet by mouth dailyActive Iron, Ferrous Sulfate, 75 (15 Fe) MG/ML SOLN Take 180 mg by mouthActive MV-Min-Fe Fum-FA-DHA (+DHA PO) Take by mouthActive aspirin 81 MG EC tablet Take 1 tablet by mouth dailyActive Active Problems ProblemNoted DateDiagnosed ByxoKupxkeyudogckaj15/04/2023 Overview (11/30/2022): [facility] 11/30/22: SANDRA 2.99 cm, absent 2x2 pocket Social History Tobacco UseTypesPacks/DayYears UsedDateSmoking Tobacco: NeverSmokeless Tobacco: Never Tobacco Cessation:Counseling Given: Not Answered CommentsNoSex and Gender InformationValueDate RecordedSex Assigned at BirthNot on fileLegal UqkKvquou65/19/2021 4:00 PM EDTGender IdentityNot on file Sexual OrientationNot on file Last Filed Vital Signs Vital SignReadingTime TakenCommentsBlood Vhyzraib997/8410 7:00 AM EDT Zuifk98214/11/2023 7:00 AM TFNPbgduuafwyg98.7 ??C (98 ??F)12/07/2022 7:00 AM EDT Respiratory Kwwc1446 7:00 AM EDTOxygen Saturation--Inhaled Oxygen Concentration--Ubqdug49.6 kg (188 lb 11.4 oz)12/07/2022 7:00 AM IGPKwzidk616.8 cm (5' 10 )12/07/2022 7:00 AM EDTBody Mass Index27.0812/07/2022 7:00 AM EDT Plan of Treatment Not on file Insurance
--- OUTSIDE RECORDS SUMMARY | 2024-12-31 18:56 | XMS_ITS | CCD ---
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 Name Role Phone BETZAIDA MCHUGH Attending Unavail able Lore Gardiner Unavailable Unavailable Lore Gardiner Unavailable Unavailab le Unavailable Primary Care Provider JOSE Sam Referring Unavailable Lore Gardiner MD Primary Care Provid er LEOLA JENKINS., JUAN R Attending Unavailable LORE GARDINER Primary Care Unavai lable LEOLA JR., JUAN R Admitting Unavailable LEOLA JR., JUAN R Referring Unavailable LORE GARDINER Primary Care Unavai lable LEOLA JR., JUAN R Attending Unavailable LORE GARDINER Primary Care Unavai lable LEOLA JR., JUAN R Attending Unavailable LEOLA JR., JUAN R Referring Unavailable LEOLA JR., JUAN R Admitting Unavailable LISBETSDORFLORE Primary Care Vanessavaaram lable LEOLA JR., JUAN R Attending Unavailable LORE GARDINER Primary Care Vanessavai Lore Valladares Primary Care Provider NON STAFF Primary Care Provider UnavailGigi Bonds Attending Provider CHELSEA Mills Emergency Provider Abby Quintero Unavailable Aisha Boothe Unavailable Yenifer Cuellar Unavailable Lore Gardiner MD Primary Care Provid er Chen Lucia MD Primary Care Provider [phone] Chen Lucia. Primary Care Physician Chen Lucia MD Primary Care Provider [phone] MD Chen Lucia Primary Care Provider MD Chen Lucia Attending Provider CHELSEA Jensen Attending Provider Gigi Tafoya Attending Provider Michelet, Gigi Admitting Unavailable Ross, Chen E Primary Care Unavailable Michelet, Gigi Attending Unavailable Michelet, Gigi Admitting Unavailable Ross, Chen E Primary Care Unavailable Esther Tafoyay Attending Unavailable Radha Jensen Attending Unavailable Ross, Chen E Primary Care Unavailable Radha Jensen Admitting Unavailable Ross, Chen E Admitting Unavailable Ross, Chen E Primary Care Unavailable Rea Chen E Attending Unavailable NON STAFF Primary Care Unavailable Gege Ivan L Admitting Unavailable Gege Ivan L Attending Unavailable NON STAFF Primary Care Unavailable Gege, Ivan L Admitting Unavailable Gege Ivan L Attending Unavailable NON STAFF Primary Care Unavailable Michelet, Gigi Admitting Unavailable Michelet, Gigi Attending Unavailable NON STAFF Primary Care Unavailable Mark Mills Admitting Unavailable Mark Mills Attending Unavailable NON STAFF Primary Care Unavailable Michelet, Gigi Admitting Unavailable Esther Tafoyay Attending Unavailable Michelet, Gigi Admitting Unavailable Chen Lucia E Primary Care Unavailable Gigi Tafoya Attending Unavailable Chen Lucia MD Primary Care Provider [phone] Chen Lucia MD Primary Care Provider [phone] Lore Gardiner Unavailable Unavailable Unavailable MICHELET Esposito, DR JIMENEZ Admitting Unavailable REA, CHEN ELIAS Primary Care Unavailable MICHELET ., DR JIMENEZ Consulting Unavailable MICHELET ., DR JIMENEZ Attending Unavailable MICHELET ., DR JIMENEZ Admitting Unavailable MICHELET ., DR JIMENEZ Consulting Unavailable MICHELET ., DR JIMENEZ Primary Care Unavailable MICHELET ., DR JIMENEZ Attending Unavailable AGUSTINA, DR TRI Hampton Consulting Unavailable CHINO, DR MARCELL Hampton Consulting Unavailable CHINO, DR MARCELL Hampton Attending Unavailable ROSS, CHEN ELIAS Primary Care Unavailable MAGANA, DR MARCELL Hampton Admitting Unavailable HAKEEM ERNST Consulting Unavailable ZIEBER, DR TRI Hampton Consulting Unavailable DES MOINES, CHEN ELIAS Primary Care Unavailable HAY ., DR TRIMBLE Attending Unavailable HAY ., DR TRIMBLE Admitting Unavailable GRECHNY ., DANYA PEDROZA Consulting Unavailabl e [place], [facility] Primary Care Unavailable MARKER ., DR ROCK Consulting Unavailable PAY ., DR NIXON Attending Unavailable PAY ., DR NIXON Admitting Unavailable ROSS, CHEN EILAS Primary Care Unavailable REINECK, DR KENYATTA Lucio Consulting Unavailabl e REINECK, DR KENYATTA Lucio Attending Unavailabl e REINECK, DR KENYATTA Lucio Admitting Unavailabl e GRECHNY ., DAYNA PEDROZA Consulting Unavailabl e MICHELET ., DR JIMENEZ Attending Unavailable MICHELET ., DR JIMENEZ Admitting Unavailable ROSS, CHEN ELIAS Primary Care Unavailable MICHELET ., DR JIMENEZ Admitting Unavailable MICHELET ., DR JIMENEZ Consulting Unavailable REQUEST, DR JASPER LISTED Primary Care Unavaila ble MICHELET ., DR JIMENEZ Attending Unavailable MICHELET ., DR JIMENEZ Admitting Unavailable MICHELET ., DR JIMENEZ Primary Care Unavailable MICHELET ., DR JIMENEZ Consulting Unavailable MICHELET ., DR JIMENEZ Attending Unavailable MICHELET ., DR JIMENEZ Admitting Unavailable DES MOINES, CHEN ELIAS Primary Care Unavailable MICHELET ., DR JIMENEZ Consulting Unavailable MICHELET ., DR JIMENEZ Attending Unavailable JOSE LEROY Referring Unavail able Chen Lucia MD Primary Care Provider Ms. Damari Sullivan Attending Unavaila derik Gardiner, Dr. Lore Kim Primary Care Un available JOSE LEROY Attending Unavail able JOSE LEROY Referring Unavail able CHEN LUCIA Primary Care Unavailable TERENCEOCCJOSE Esqueda Attending Unavail able CHEN LUCIA Primary Care Unavailable Chen Lucia MD Primary Care Provider Chen Lucia Primary Care Physician [phone] Chen Lucia Attending Unavailable Chen Lucia Attending Unavailable Chen Lucia Attending Unavailable Chen Lucia Admitting Unavailable Chen Lucia Attending Unavailable Chen Lucia MD Primary Care Provider [phone] HILARY BRISCOE Attending Unavailable GIGI TAFOYA R Referring Unavailable REACHEN E Primary Care Unavailable Chen Luica MD Primary Care Provider Chen Lucia MD Primary Care Provider [phone] GIGI TAFOYA R Referring Unavailable ROSS, CHEN E Primary Care Unavailable HILARY BRISCOE Referring Unavailable ROSS, CHEN E Primary Care Unavailable MICHELET, GIGI R Referring Unavailable ROSS, CHEN E Primary Care Unavailable MICHELET, GIGI R Referring Unavailable ROSS, CHEN E Primary Care Unavailable RODEMAN, HILARY Referring Unavailable ROSS, CHEN E Primary Care Unavailable MICHELET, GIGI R Referring Unavailable ROSS, CHEN E Primary Care Unavailable MICHELET, GIGI R Referring Unavailable ROSS, CHEN E Primary Care Unavailable RODISABEL, HILARY Referring Unavailable ROSS, CHEN E Primary Care Unavailable MICHELET, GIGI R Referring Unavailable SCHLACHTER, DARIELA Primary Care Unavailable MICHELET, GIGI R Referring Unavailable SCHLACHTER, DARIELA Primary Care Unavailable RODHILARY HALL Referring Unavailable SCHLACHTER, DARIELA Primary Care Unavailable Schlachter INFORMATICIST-PORTER BAGGAGE, Dariela Primary Care Provide r GIGI TAFOYA Attending Unavailable Allergies Allergy ClassificationReported Allergen(s)Allergy TypeDate of OnsetReaction(s) FacilitySulfonamides (antibiotic) (1 source)Sulfonamides (Antibiotic)Drug Zphlvru76-32-0155CjmmpIeupBbpgwo (2 sources)Misc. Sulfa Containing Compounds; Translations: [Misc. Sulfa Containing Compounds]Allergy to drug (finding)[facility] Work Phone: (20 sources)Sulfonamides (Antibiotic); Translations: [SULFA (SULFONAMIDE ANTIBIOTICS)]Propensity to adverse reactions to qvqa46-75-6373GuhchImwlZxkimo (3 sources)Sulfacetamide / SulfurDrug Allergyrash/hivesNorth Hermann Area District Hospital IncreaseCard Other (1 source)sulfaSALAzineDrug AllergyRASHNsoutheast missouri hospital TalkLife Other (20 sources)Sulfamethoxazole / Trimethoprim; Translations: [sulfamethoxazole-trimethoprim]Drug Uzeplvw46-71-5212Wdko (disorder), [facility] (1 source)Sulfonamides (Antibiotic)Drug allergy (disorder)17-46-7773YgeupgfdoRegency Hospital [facility] Rep[facility] (1 source)Sulfonamides (Antibiotic)Drug allergy (disorder)86-58-9724VnnOhio [facility] (2 sources)Sulfamethoxazole / Trimethoprim; Translations: [SULFAMETHOXAZOLE-TRIMETHOPRIM]Drug Denunkg49-00-8752AwvTppprz Repository Medications Current Medications MedicationDrug Class(es)DatesSig (Normalized)Sig (Original)albuterol 0.83 mg/ml inhalation solution (20 sources)beta2-Adrenergic AgonistStart: 69-54-6660yjqb 2.5 mg by inhalation every four hours as neededalbuterol 0.083% Inh Theresa 3 mL 2.5 mg, 3 mL, NEB, q4hr, Refill(s) 0, as needed Start Date: 02/15/22 Status: OrderedStart: 02-15-2022 take 3 mL by inhalation once daily as needed for wheezingalbuterol (PROVENTIL,VENTOLIN) 2.5 mg /3 mL (0.083 %) nebulizer solution Inhale 3 mL (2.5 mg total)by nebulization daily as needed for shortness of breath or wheezing. 02/15/2022 ActiveStart: 51-56-3609Zvonqzplu (Eqv-ProAir HFA) Wheezing, Refill(s) 0 Start Date: 09/22/21 Status: OrderedStart: 12-95-0981Aekidjbmm Sulfate (2.5 MG/3ML) 0.083% 3 ml as needed Inhalation every 6 hrs for 7 days Mar, ActiveStart: 24-88-4730citc 2 puff(s) by inhalation every four hours as needed Albuterol Sulfate HFA 108 (90 Base) MCG/ACT 2 puffs as needed Inhalation every 4 hrs for 7 days Mar, ActiveStart: 63-47-0108vvqe 2 puff(s) by inhalation every four hours as neededAlbuterol Sulfate HFA 108 (90 Base) MCG/ACT 2 puffs as needed Inhalation every 4 hrs for 7 days Mar, ActiveStart: 05-13-2016 take 2 puff(s) by inhalation every six hoursalbuterol HFA (PROVENTIL HFA, VENTOLIN HFA) 90 mcg/actuation inhaler Inhale 2 Puffs as instructed every 6 hours. 1 Inhaler 0 05/13/2016 Activealbuterol (PROVENTIL) 2.5 mg /3 mL (0.083 %) nebulizer solution Use 2.5 mg via nebulizer as needed.0 ActiveAlbuterol Sulfate (2.5 MG/3ML) 0.083% Inhalation Nebulization Solution USE 1 UNIT DOSE IN NEBULIZEREVERY 4 HOURS NEEDED. Quantity: 1 Refills: 5 Ordered: 19-Nov-2019 Lore Gardiner MD Activetake 2 puff(s) by inhalation every four hours as neededProAir HFA 108 (90 Base) MCG/ACT AERS INHALE 2 PUFFS EVERY 4 HOURS NEEDED Quantity: 2 Refills: 5Ordered: 19-Nov-2019 Lore Gardiner MD Active albuterol (PROVENTIL) 2.5 mg /3 mL (0.083 %) nebulizer solution Inhale 2.5 mg as needed . 0 Activetake 2 puff(s) by inhalation every four hours as neededProAir HFA 108 (90 Base) MCG/ACT Inhalation Aerosol Solution INHALE 2 PUFFS EVERY 4 HOURS NEEDEDQuantity: 2 Refills: 5 Lore Gardiner MD Active 8.5 GM InhalerComment on above:Inhale 2 Puffs as instructed every 6 hours.Use 2.5 mg via nebulizer as needed.Albuterol (Eqv-ProAir HFA) 90 mcg/inh inhalation aerosol (1 source)Start: 95-17-9937ymeu 2 puff(s) by inhalation every six hoursAlbuterol (Eqv-ProAir HFA) 90 mcg/inh inhalation aerosol 2 puff(s), Inhalation, q6hr Wheezing, 8.5 gm, Refill(s) 3, [facility] #[id number], 180, cm, 07/18/23 15:34:00 EDT, Height/Length Dosing, 78.8, kg,07/18/23 15:34:00 EDT, Weight Dosing Start Date: 07/18/23 Status: Orderedampicillin 500 mg oral capsule (2 sources)Penicillin-class AntibacterialStart: 10-15-2020 End: 56-69-6112odnq 1 capsule by mouth four times dailyampicillin (PRINCIPEN) 500 MG capsule Indications: Foreign body (FB) in soft tissue , Cellulitis of foot, right Take 1 (one) capsule (500 mg total) by mouth 4 (four) times a day for 10 days . 40 capsule 0 10/15/2020 10/25/2020 Activeaspirin 81 mg delayed release oral tablet (6 sources)Platelet Aggregation Inhibitor, Nonsteroidal Anti-inflammatory Drug take 1 tablet by mouth in the morningaspirin 81 mg Take 1 tablet (81 mg total) by mouth in the morning. Activeazithromycin 250 mg oral tablet (2 sources)Macrolide AntimicrobialStart: 17-39-5237Wcldevulc Z-Peter 250 MG 2 tablets on the first day, then 1 tablet daily for 4 days Orally Once a dayfor 5 day(s) Mar, Activecetirizine hydrochloride 10 mg oral tablet (16 sources)Histamine-1 Receptor Antagonist End: 27-66-5236ariavjfdmz (ZYRTEC) 10 mg tablet Take 10 mg by mouth as needed. 0 04/14/2022 Discontinued (Discontinued by another Health Care Provider)Comment on above:Take 10 mg by mouth as needed.clomiPHENE citrate 50 mg oral tablet (1 source)Estrogen Agonist/AntagonistStart: 12-27-2024 End: 51-25-7208amnv 2 tablets by mouth once dailyclomiPHENE (Clomid) 50 MG tablet Indications: Elena's thyroiditis , Amenorrhea Take 2 tablets (100 mg) by mouth Daily for 5 days 10 tablet 12/27/2024 01/01/2025 Activedoxycycline hyclate 100 mg oral capsule (2 sources)Tetracycline-class DrugStart: 10-15-2020 End: 30-25-2119mobg 1 capsule by mouth twice dailydoxycycline hyclate (VIBRAMYCIN) 100 MG capsule Indications: Foreign body (FB) in soft tissue , Cell ulitis of foot, right Take 1 (one) capsule (100 mg total) by mouth 2 (two) times a day for 10 days . 20 capsule 0 10/15/2020 10/25/2020 Activefolic acid 2.5 mg / vitamin b12 1 mg / vitamin b6 25 mg oral tablet (6 sources)Vitamin J64arrz 1 tablet by mouth in the morningfolic acid-vit B6-vit B12 (FOLBEE) 2.5-25-1 mg tablet Take 1 tablet by mouth in the morning. Active 03/18 (2 sources)03/18 Activelevothyroxine sodium 0.175 mg oral tablet (20 sources)l-ThyroxineStart: 07-29-2024 End: 26-54-9082guoz 1 tablet by mouth in the morninglevothyroxine (SYNTHROID, LEVOTHROID) 175 MCG tablet Indications: Autoimmune thyroiditis Take 1 tablet (175 mcg total) by mouth in the morning. 90 tablet 3 07/30/2024 ActiveStart: 02-22-2024 End: 45-44-4627moab 1 tablet by mouth before mealtimelevothyroxine (Synthroid) 200 MCG tablet Indications: Elena's thyroiditis Take 1 tablet (200 mcg) by mouth in the morning. Take before meals. 90 tablet 2 02/22/2024 ActiveStart: 01-39-8400oirm 1 tablet by mouth once dailylevothyroxine 200 mcg (0.2 mg) Tab = 1 tab(s), Oral, Daily, Refills(s) 0 Start Date: 01/15/24 Status: OrderedStart: 10-16-2023 End: 39-98-2975olno 1 tablet by mouth before mealtimelevothyroxine (Synthroid) 200 MCG tablet Indications: Elena's thyroiditis (CMS/HCC) Take 1 tablet (200 mcg) by mouth in the morning. Take before meals. 30 tablet 3 10/16/2023 11/15/2023 ActiveStart: 57-78-8689mnuphhbyieunu (SYNTHROID) 175 mcg tablet Indications: 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M through Saturdays: Take one whole tablet. Each Monday: Take one and one-half tablets. All by mouth. 100 tablet 3 07/12/2023 ActiveStart: 72-98-9212tfpe 1 tablet by mouth once dailylevothyroxine (SYNTHROID) 175 mcg tablet Indications: 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Take 1 tablet by mouth once daily. 90 tablet 3 05/31/2022 ActiveStart: 04-18-2022 End: 58-14-3916awzi 1 tablet by mouth once dailylevothyroxine (SYNTHROID) 150 mcg tablet Indications: 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Take 1 tablet by mouth once daily. 90 tablet 3 04/18/2022 05/31/2022 Discontinued (Dosage adjustment)Start: 66-98-0885utdh 1 tablet by mouth once daily levothyroxine 175 mcg (0.175 mg) Tab 175 mcg = 1 tab(s), Oral, Daily, Refills(s) 0 Start Date: 02/15/22 Status: OrderedStart: 99-91-4324hkrm 1 tablet by mouth once dailySynthroid 200 mcg (0.2 mg) Tab 200 mcg = 1 tab(s), Oral, Daily, Refills(s) 0 Start Date: 09/22/21 Status: OrderedStart: 05-20-2021 End: 77-25-9340qecj 1 tablet by mouth once dailylevothyroxine (SYNTHROID) 200 mcg tablet Indications: 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Take 1 tablet by mouth once daily. 90 tablet 3 05/20/2021 12/31/2021 Discontinued (Dosage adjustment)Start: 12-31-2018 End: 32-92-5570ftdi 1 tablet by mouth once dailylevothyroxine (SYNTHROID) 175 mcg tablet Indications: 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Take 1 tablet by mouth once daily. 90 tablet 3 12/31/2021 04/18/2022 Discontinued (Dosage adjustment)Start: 12-31-2018 End: 69-02-4435gcfjabdwcvlgr (SYNTHROID) 150 mcg tablet Indications: 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One tablet daily Mondays through Saturdays. One and one-half tablets each Monday 100 tablet 3 06/04/2020 05/20/2021 Discontinued (Dosage adjustment) End: 69-39-6155xcbgesfeecxfp (SYNTHROID, LEVOTHROID) 175 MCG tablet Take 200 mcg by mouth in the morning. 03/20/2024 Discontinued (Reorder)Synthroid 150 MCG 1 tablet in the morning on an empty stomach Monday through Monday and 1 and 1/2 tabs on Monday Orally Once a day ActiveSynthroid ActiveComment on above:One tablet daily Mondays through Saturdays. One and one-half tablets each MondayTake 1 tablet by mouth once daily.24 hr metFORMIN hydrochloride 500 mg extended release oral tablet (20 sources)BiguanideStart: 87-89-6526dvqv 2 tablets by mouth every twenty-four hours at mealtimemetFORMIN XR (Glucophage-XR) 500 MG 24 hr tablet Indications: Eelna's thyroiditis , Infertilitycounseling Take 2 tablets (1,000 mg) by mouth in the evening. Take with meals 60 tablet 11 12/16/2024 ActiveStart: 92-81-2856qfwo 1 tablet by mouth every twenty-four hours at mealtimemetFORMIN XR (Glucophage-XR) 500 MG 24 hr tablet Indications: Elena's thyroiditis , History of miscarriage Take 1 tablet (500 mg) by mouth in the evening. Take with meals Do not crush, chew, or split. 90 tablet 2 02/22/2024 ActiveStart: 62-19-0429vafs 1 tablet by mouth once dailymetformin 500 mg ER Tab = 1 tab(s), Oral, Daily, Refills(s) 0 Start Date: 01/15/24 Status: OrderedStart: 10-16-2023 End: 64-43-9218eocj 1 tablet by mouth every twenty-four hours at mealtime metFORMIN XR (Glucophage-XR) 500 MG 24 hr tablet Indications: Elena's thyroiditis (CMS/HCC) , History of miscarriage Take 1 tablet (500 mg) by mouth in the evening. Take with meals Do not crush, chew, or split. 30 tablet 11 10/16/2023 11/15/2023 ActiveStart: 49-74-7017ztfe 1 tablet by mouth once daily metformin 500 mg ER Tab 500 mg = 1 tab(s), Oral, Daily, Refills(s) 0 Start Date: 02/15/22 Status: Orderedtake 1 tablet by mouth once daily at dinnermetFORMIN (GLUMETZA) 500 MG (MOD) 24 hr tablet Take 1 tablet (500 mg total) by mouth Daily before evening meal. ActiveComment on above:Take 500 mg by mouth daily with breakfast.metoclopramide 10 mg oral tablet (8 sources)Dopamine-2 Receptor AntagonistStart: 48-68-2833durocqnnfpucwu (Reglan) 10 MG tablet Indications: History of hyperemesis gravidarum Take 1 tablet (10 mg) by mouth in the morning and 1 tablet (10 mg) at noon and 1 tablet (10 mg) in the evening. Take before meals. Take 1 tablet by mouth 30 minutes prior to meals 3 times daily as needed for nausea.. 90 tablet 1 08/14/2023 Activemetoprolol tartrate 25 mg oral tablet (20 sources)beta-Adrenergic BlockerStart: 02-23-2021 End: 27-05-3288vxtu 1 tablet by mouth once daily as neededmetoprolol tartrate (LOPRESSOR) 25 mg tablet Take 1 tablet (25 mg total) by mouth daily as needed. I f heart rate is over 120 11/02/2022 ActiveStart: 15-61-9483cejj 0.5 tablet by mouth twice dailyMetoprolol Tartrate 25 MG Oral Tablet 1/2 tab bid Quantity: 45 Refills: 1 Ordered: 19-Nov-2019 Lore Gardiner MD Start : 14-Jan-2019 ActiveComment on above:Take 25 mg by mouth as needed.Nebulizer/Tubing/Mouthpiece - (2 sources)Nebulizer/Tubing/Mouthpiece - as directed nebulizer every 6 hours as needed for 30 days Activepolymyxin b 98591 unt/ml / trimethoprim 1 mg/ml ophthalmic solution (1 source)Dihydrofolate Reductase Inhibitor Antibacterial, Polymyxin-class Antibacterialtake 1 drop(s) into the eye(s) four times dailyPolymyxin B- Trimethoprim 25181-0.1 UNIT/ML 1 drop into affected eye Ophthalmic Four times a day for7 days ActivepredniSONE 20 mg oral tablet (2 sources)Start: 87-13-7554donkhbIGGA 20 MG 3 tabs for 3 days, then 2 tabs for 3 days, 1 tab for 3 days Orally Once a day for 9 days Mar, Active MV-Min-Fe Fum-FA-DHA ( 1 PO) (13 sources) MV-Min-Fe Fum-FA-DHA ( 1 PO) Take by mouth. Active vit no.124/iron/folic ( VITAMIN ORAL) (20 sources)take 1 tablet by mouth in the morningprenatal vit no.124/iron/folic ( VITAMIN ORAL) Take 1 tablet by mouth in the morning. Activeprenatal vit no.124/iron/folic ( VITAMIN ORAL) Take by mouth. 0 ActiveComment on above:Take by mouth.progesterone 100 mg vaginal insert (7 sources)Progesterone End: 39-01-0372ehztsjgsmbtk (ENDOMETRIN) 100 mg vaginal insert Insert 2 tablets (200 mg total) into the vagina in the morning and 2 tablets (200 mg total) before bedtime. 12/31/2024 DiscontinuedProgesterone 200 MG suppository (2 sources)Start: 10-16-2023 End: 55-39-4785Hhcyxqaotbaw 200 MG suppository Indications: History of miscarriage Insert 200 mg into the vagina in the morning and 200 mg before bedtime. Insert suppository vaginally every night at bedtime until 12 weeks gestation. 60 suppository 3 10/16/2023 11/15/2023 Activepromethazine hydrochloride 12.5 mg oral tablet (9 sources)PhenothiazineStart: 71-81-8132fguu 1 tablet by mouth every six hours as needed for nausea and nausea, then take 1 tablet by mouthevery six hours as needed for nausea and nauseapromethazine (Phenergan) 12.5 MG tablet Indications: History of hyperemesis gravidarum Take 1 tablet (12.5 mg) by mouth every 6 (six) hours if needed for nausea or vomiting for up to 30 doses Take 1 tablet by mouth every 6 hours as needed for nausea. 30 tablet 2 08/14/2023 Active Completed/Discontinued Medications MedicationDrug Class(es)DatesSig (Normalized)Sig (Original)adapalene 0.003 mg/mg / benzoyl peroxide 0.025 mg/mg topical gel (1 source)RetinoidStart: 08-23-2016 End: 47-74-0075OSFXHE FORTE 0.3-2.5 % glwpcephalexin 500 mg oral capsule (4 sources)Cephalosporin AntibacterialStart: 01-20-2023 End: 60-50-2013xwhygfcfuo (Keflex) 500 MG capsule Take 500 mg by mouth in the morning and 500 mg at noon and 500 mg in the evening and 500 mg before bedtime. 01/20/2023 10/16/2023 DiscontinuedStart: 10-02-2020 End: 39-25-1625dpfj 1 capsule by mouth four times dailycephALEXin (KEFLEX) 500 MG capsule Take 1 (one) capsule (500 mg total) by mouth 4 (four) times a day for 7 days . 28 capsule 0 10/02/2020 10/09/2020 Activeclindamycin 300 mg oral capsule (3 sources)Lincosamide AntibacterialStart: 01-21-2023 End: 68-49-6695twmd 1 capsule by mouth in the morning, then take 1 capsule by mouth in the evening, then take 1 capsule by mouth at bedtimeclindamycin (Cleocin) 300 MG capsule Take 300 mg by mouth in the morning and 300 mg in the evening and 300 mg before bedtime. 01/21/2023 10/16/2023 Discontinuedcompounded progesterone 200mg capsule (3 sources)compounded progesterone 200mg capsule 200 mg once daily. Compounded 0 ActiveComment on above:200 mg once daily. CompoundedEPINEPHrine 0.01 mg/ml / lidocaine hydrochloride 20 mg/ml injectable solution (2 sources)Antiarrhythmic, alpha-Adrenergic Agonist, beta-Adrenergic Agonist, Catecholamine, Amide Local AnestheticStart: 10-02-2020 End: 82-39-0361wxzctiywh-EPINEPHrine (XYLOCAINE W/EPI) 2 %-1:100,000 injection 1 mLStart: 10-02-2020 End: 15-25-4214hznhxcmmo-EPINEPHrine (XYLOCAINE W/EPI) 2 %-1:100,000 injection 1 mLEthinyl Estradiol / Ferrous fumarate / Norethindrone (1 source)EstrogenStart: 09-05-2014 End: 01-89-3290rpoe 1 tablet by mouth once dailyNorethin Cale-Eth Estrad-FE 1 mg- 20 mcg (21)/75 mg (7) per tablet Take 1 tablet by mouth once daily.0 09/05/2014 09/27/2019 Discontinued (Discontinued by another Health Care Provider)Comment on above:Take 1 tablet by mouth once daily.letrozole 2.5 mg oral tablet (10 sources)Aromatase InhibitorStart: 92-85-2626hppaqmwud (FEMARA) 2.5 mg tablet Take 2.5 mg by mouth as directed. 0 05/03/2021 ActiveComment on above:Take 2.5 mg by mouth as directed.Lidocaine (2 sources)Antiarrhythmic, Amide Local AnestheticStart: 10-02-2020 End: 66-57-5239lfbquitxn 10 mg/mL (1 %) injection 1 mLmontelukast 10 mg oral tablet (18 sources)Leukotriene Receptor Antagonist End: 19-99-4468icuq 1 tablet by mouth at bedtimeMontelukast Sodium 10 MG Oral Tablet TAKE 1 TABLET AT BEDTIME. Quantity: 90 Refills: 3 Ordered: 12-Dec-2019 Lore Gardiner MD End : 05-May-2022 CompleteComment on above:Take 10 mg by mouth at bedtime as needed. ondansetron 4 mg disintegrating oral tablet (8 sources)Serotonin-3 Receptor AntagonistStart: 05-25-2022 End: 79-33-4177scjesomrmym orally disintegrating (ZOFRAN ODT) 4 mg disintegrating tablet Take 4 mg by mouth as needed. 0 05/25/2022 06/12/2023 Discontinued (Other)Comment on above:Take 4 mg by mouth as needed.SUMAtriptan 100 mg oral tablet (18 sources)Serotonin-1b and Serotonin-1d Receptor AgonistStart: 11-19-2019 End: 56-50-4146exrs 1 tablet by mouth every two hoursSUMAtriptan Succinate 100 MG Oral Tablet TAKE 1 TABLET AT ONSET OF MIGRAINE HEADACHE. MAY REPEAT IN2 HOURS IF NEEDED. Quantity: 10 Refills: 3 Ordered: 19-Nov-2019 Lore Gardiner MD Start : 19-Nov-2019 End : 05-May-2022 CompleteComment on above:Take 100 mg by mouth as needed.triamcinolone acetonide 1 mg/ml topical cream (20 sources)CorticosteroidStart: 79-15-1422xjvbqfmpvzqxa acetonide (KENALOG) 0.1 % cream Apply 1 application to affected area as needed. 0 06/29/2015 Active Comment on above:Apply 1 application to affected area as needed. ubrogepant 100 mg oral tablet (18 sources)Start: 35-32-4187xhyl 1 tablet by mouth every two hours as needed Ubrelvy 100 mg oral tablet 100 mg = 1 tab(s), Oral, Once, PRN Migraine headache, may repeat dose in2 hours if needed, # 14 tab(s), Refills(s) 0, Pharmacy: [facility]/pharmacy #[id number], 180, cm, 07/18/23 15:34:00 EDT, Height/Length Dosing, 78.8, kg, 07/18/23 15:34:00 EDT, Weight Dosing Start Date: 07/18/23 Status: Ordered Start: 28-95-9042Uxeohel PRN Migraine headache, Refills(s) 0 Start Date: 09/22/21 Status: OrderedStart: 12-28-2020 End: 58-51-3901enbxtmsagy (UBRELVY) 100 mg tablet Take 100 mg by mouth as needed. 0 12/28/2020 04/14/2022 Discontinued (Discontinued by another Health Care Provider)Comment on above:Take 100 mg by mouth as needed. Problems Active Problems Problem ClassificationProblemDateDocumented DateEpisodic/ChronicAsthma (7 sources)Asthma; Translations: [Exacerbation of asthma]81-69-2299Ygqplyz Cardiac dysrhythmias (2 sources)Inappropriate sinus tachycardia; Translations: [Sinus tachycardia] ChronicCardiac dysrhythmias (6 sources)Palpitations; Translations: [Tachycardia]EpisodicConditions associated with dizziness or vertigo (2 sources)Lightheadedness; Translations: [Dizziness and giddiness]Episodic Endometriosis (10 sources)Endometriosis (clinical); Translations: [Endometriosis, unspecified] Onset: 862863-17-6738HovhjjcHtczr and electrolyte disorders (1 source)Volume depletion, unspecified; Translations: [VOLUME DEPLETION UNSPECIFIED]Onset: 88-10-2005KdksarciClmcliov; including migraine (4 sources)Sssmbklx72-31-6033VeievhxQscidhfy; including migraine (2 sources)Headache; Translations: [Headache]EpisodicInflammation; infection of eye (except that caused by tuberculosis or sexually transmitteddisease) (4 sources)Bacterial conjunctivitis; Translations: [Unspecified conjunctivitis] Onset: 07-14-2021 Resolved: 622900-85-9290TmrcmewjAnewqbuveb disorders (4 sources)Long-term current use of thyroid hormone replacement therapy; Translations: [Hormone replacement therapy]EpisodicMenstrual disorders (20 sources)Irregular menstruation, unspecified; Translations: [Missed period] Onset: 251875-43-6056AzfphxsHvahtg and vomiting (3 sources)Nausea with vomiting, unspecified; Translations: [NAUSEA WITH VOMITING UNSPECIFIED]Onset: 94-66-2956CkpohlgcYyztx aftercare (1 source)Long-term current use of levothyroxine; Translations: [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]49-15-4201PymwztxmZgfwj aftercare (2 sources)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; Translations: [Long-term current use of levothyroxine]Onset: 63-89-6094CvlswaenBowma complications of (1 source)Thyroid dysfunction during - baby not yet delivered; Translations: [Endocrine, nutritional and metabolic diseases complicating , first trimester]EpisodicOther complications of (4 sources)Mild hyperemesis gravidarum; Translations: [MILD HYPEREMESIS GRAVIDARUM]Onset: 73-94-8872DldzlldgFslee complications of (1 source)Other specified related conditions, first trimester; Translations: [OTH SPEC PREG RELATEDCOND 1ST TRI]Onset: 92-67-3749UslcrcftOgaby complications of (4 sources)Supervision of with other poor reproductive or obstetric history, unspecified trimester; Translations: [SUP PG OTH POOR REPROD/OB HX UNS TM]Onset: 83-58-6491NvhshqjlEimvv connective tissue disease (2 sources)Foreign body; Translations: [Residual foreign body in soft tissue] EpisodicOther connective tissue disease (1 source)Foot pain; Translations: [Pain in right foot]EpisodicOther endocrine disorders (5 sources)Polycystic ovary syndrome; Translations: [Polycystic ovaries]Onset: 442959-75-8545GlrojrjZefcv endocrine disorders (1 source)Polycystic ovarian syndrome; Translations: [Polycystic ovarian syndrome]Onset: 02-82-1511KvztdnrYrosq eye disorders (2 sources)Eye / vision finding; Translations: [Unspecified visual disturbance] EpisodicOther nervous system disorders (2 sources)Tremor; Translations: [Abnormal involuntary movements]EpisodicOther nervous system disorders (1 source)H/O: migraine; Translations: [Personal history of other disorders of nervous system and sense organs]EpisodicOther nutritional; endocrine; and metabolic disorders (1 source)H/O: thyroid disorder; Translations: [Personal history of other endocrine, metabolic, and immunity disorders]EpisodicResidual codes; unclassified (5 sources)FH: Thyroid disorder; Translations: [Family history of other endocrine, nutritional and metabolic diseases]EpisodicResidual codes; unclassified (1 source)Body mass index 20-24 - normal; Translations: [Body mass index (BMI) 22.0-22.9, adult]Onset: 57-03-0745TxdgevrjAdyrtcas codes; unclassified (1 source)11 weeks gestation of ; Translations: [11 WEEKS GESTATION OF ]Onset: 47-22-8783NfjrqypvQksgdlgc codes; unclassified (1 source)9 weeks gestation of ; Translations: [9 WEEKS GESTATION OF ]Onset: 57-55-0898GikdvzgrMikixigb codes; unclassified (1 source)Personal history of other complications of , childbirth and the puerperium; Translations: [Personal history of other complications of , childbirth and the puerperium]Onset: 41-34-6597WczbgxjmRdkr and subcutaneous tissue infections (2 sources)Cellulitis of right foot; Translations: [Cellulitis of right lower limb]EpisodicSpondylosis; intervertebral disc disorders; other back problems (4 sources)Nnyxseyd54-51-8963DxvaychxShivytl disorders (20 sources)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; Translations: [Other specified hypothyroidism]Onset: 06-10-2016 Resolved: 42-68-9897JjkphuwZmggmgroetha (1 source)Hemorrhage in early , unspecified; Translations: [Hemorrhage in early , unspecified]Onset: 51-38-1554Vkcootbvwbxf (1 source)H57.89 - Other specified disorders of eye and adnexa; Translations: [H57.89 - Other specified disorders of eye and adnexa]Onset: 07-20-2021 Unclassified (1 source)E34.9 - Endocrine disorder, unspecified; Translations: [E34.9 - Endocrine disorder, unspecified]Onset: 76-33-9157Zqabltybhypc (1 source)N92.6 - Irregular menstruation, unspecified; Translations: [N92.6 - Irregular menstruation, unspecified]Onset: 63-42-3849Rettvaeottuz (1 source)Z23 - Encounter for immunization; Translations: [Z23 - Encounter for immunization]Onset: 36-78-5904Leitksghuzeq (1 source)Patient encounter almpjt45-87-1914Qclhsvsyedha (1 source)Polycystic Ovary SyndromeOnset: 35-04-8834Kxpgpheaxhru (1 source)Elena's ThyroiditisOnset: 03-20-2024 Past or Other Problems Problem ClassificationProblemDateDocumented DateEpisodic/ChronicAbdominal pain (20 sources)Right flank pain; Translations: [Unspecified abdominal pain]Onset: 897236-69-8875RgfxkhngQvvawzfplkaws and procreative management (1 source)Encounter for other procreative management; Translations: [Encounter for other procreative management]Onset: 61-67-0604HrqzdjyoOqbcnpipbc during ; abruptio placenta; placenta previa (4 sources)Hemorrhage in early , unspecified; Translations: [Threatened ]Onset: 78-68-8367VhagoyxtOotwlfbbifglw and screening for infectious disease (3 sources)Encounter for immunization; Translations: [Encounter for screening for human papillomavirus (HPV)]Onset: 01-19-2021 Resolved: 16-84-9760IbuhuyueSjkc disorders (1 source)Mood disordersOnset: Other complications of (1 source)Endocrine, nutritional and metabolic diseases complicating , unspecified trimester; Translations: [Thyroid disease during , unspecified trimester]Onset: 02-02-1555IrnwbawpLjmll complications of (13 sources)Hyperemesis gravidarum; Translations: [Mild hyperemesis gravidarum] Onset: 096383-32-4074GqxktfnrBhkvm complications of (3 sources)Nausea and vomiting; Translations: [Vomiting of , unspecified]Onset: 08-01-2022 Resolved: 962004-81-7286JlnfusqlNrghn complications of (10 sources)Vomiting of , unspecified; Translations: [Unspecified vomiting of , unspecified as to episode of care or not applicable] Onset: 08-01-2022 Resolved: 484012-62-7959XitmwhvvMvoen diseases of kidney and ureters (20 sources)Obstruction of pelviureteric junction; Translations: [Crossing vessel and stricture of ureter without hydronephrosis]Onset: 04-28-2016 68-27-1126YzkijbfaLgjxg ear and sense organ disorders (1 source)Otalgia, right earOnset: 05-03-2021 Resolved: 10-09-1068XovgkdlqOnhtt female genital disorders (1 source)Personal history of other diseases of the female genital tract; Translations: [Personal history of oth diseases of the female genital tract] Onset: 48-59-2679VqwujlioCahty and delivery including normal (20 sources)First trimester ; Translations: [Encounter for supervision of other normal , first trimester]Onset: 606465-88-8278Yvxssvhe Other screening for suspected conditions (not mental disorders or infectious disease) (5 sources)Encounter for screening for malignant neoplasm of cervix; Translations: [Other specified abnormal findings of blood chemistry]Onset: 40-87-1745XdduccmnDzgcqkbvotdmqc and other problems of amniotic cavity (13 sources)Oligohydramnios; Translations: [Oligohydramnios, unspecified trimester, not applicable or unspecified]Onset: 019654-72-8042Lcysbxdo Residual codes; unclassified (17 sources)Patient encounter status; Translations: [Other specified health status]Onset: 21-67-0819VcqdgcxgPjjcgyxw codes; unclassified (2 sources)Less than 8 weeks gestation of ; Translations: [< 8 WEEKS GESTATION ]Onset: 00-63-0465ObtndcxbKifivokd codes; unclassified (1 source)Family history of other endocrine, nutritional and metabolic diseases; Translations: [Family history of thyroid disease]Onset: 05-02-6043Jsmtqpyw Residual codes; unclassified (15 sources)H/O: miscarriage; Translations: [Personal history of other complications of , childbirth and the puerperium]Onset: 07-23-2024 08-05-0914ImgahvehDkcmsviagij (2 sources)Complete or unspecified spontaneous without complication; Translations: [Complete or unspecified spontaneous without complication]Onset: 28-08-0402SjvtzoueZuillao disorders (5 sources)Disorder of thyroid, unspecified; Translations: [Disorder of thyroid gland]Onset: 362410-65-6707SyqazekhDGJKUJI: Highlighted row has not occurred!Residual codes; unclassified (4 sources)DiseaseEpisodic Results Test NameValueInterpretationReference RangeFacilityTSH WITH REFLEXon 12-11-2024 TSH1.81 uIU/mLNormal0.49-4.67ProChristus Spohn Hospital Corp[facility] Christi – ShorelineComment on above: Performed By: #### 3016-3, 3024-7 #### [facility] ([id number]) [address] [place] [address], [address] [place], [place] [address]ORQUAONPDLQSeh 03-11-6879PZEYBISQBWZW91.7 ng/mLNormalOur Lady of Mercy HospitalComment on above:Result Comment: FEMALES: 1st Tri: 4.7-50.7 ng/ml 2nd Tri: 19.4-45.3 ng/ml MENSTRUATING FEMALES: Follicular: 0.3-1.5 ng/ml Mid Luteal: 5.2-18.6 ng/ml Post Fatou: <0.1-0.8 ng/ml Performed By: #### 3016-3, 3024-7 #### [facility] ([id number]) [address] [place] [address], [address] [place], [place] [address]KLUGIIGIHNSIbd 73-25-9715GXDRQNLHVGZT51.8 ng/mLNormalProChristus Spohn Hospital Corp[facility] Christi – ShorelineComment on above:Result Comment: FEMALES: 1st Tri: 4.7-50.7 ng/ml 2nd Tri: 19.4-45.3 ng/ml MENSTRUATING FEMALES: Follicular: 0.3-1.5 ng/ml Mid Luteal: 5.2-18.6 ng/ml Post [place]: <0.1-0.8 ng/ml Performed By: #### PRGST #### [facility] ([facility]) [address] [place] [address] VIRTSH WITH REFLEXon 65-47-0072YZG6.99 uIU/mLNormal0.49-4.67 [facility] HospitalComment on above:Performed By: #### TSHR #### [facility] ([facility]) [address] [place] [address] VIRPROGESTERONEon 03-07-3327MHBIDPRNPYMU19.6 ng/mLNormal [facility] HospitalComment on above:Result Comment: FEMALES: 1st Tri: 4.7-50.7 ng/ml 2nd Tri: 19.4-45.3 ng/ml MENSTRUATING FEMALES: Follicular: 0.3-1.5 ng/ml Mid Luteal: 5.2-18.6 ng/ml Post [place]: <0.1-0.8 ng/ml Performed By: #### PRGST #### [facility] ([facility]) [address] [place] [address] VIRProgesteroneon 71-57-5253Pfqhxcqtdaok [Mass/Vol]13.6 ng/mL [facility] HealthcareComment on above: FEMALES: 1st Tri: 4.7-50.7 ng/ml 2nd Tri: 19.4-45.3 ng/ml MENSTRUATING FEMALES: Follicular: 0.3-1.5 ng/ml Mid Luteal: 5.2-18.6 ng/ml Post [place]: <0.1-0.8 ng/ml PERFORMED AT [address],[place] [address] NOMS HealthcarePROGESTERONEon 81-23-8155YUNPPLBVIQBF27.7 ng/mLNormalOur Lady of Mercy HospitalComment on above:Result Comment: FEMALES: 1st Tri: 4.7-50.7 ng/ml 2nd Tri: 19.4-45.3 ng/ml MENSTRUATING FEMALES: Follicular: 0.3-1.5 ng/ml Mid Luteal: 5.2-18.6 ng/ml Post [place]: <0.1-0.8 ng/ml Performed By: #### PRGST #### [facility] ([facility]) [address] [place] [address] VIRTHYROID PROFILE INCLUDES TSH FT4on 53-03-0980Rgfv T4 [Mass/Vol]1.78 ng/dLHigh0.61-1.60[facility] Mer[facility] HospitalComment on above: Performed By: #### THYR #### [facility] ([facility]) [address] [place] [address] VIRTSH0.47 uIU/mLLow0.49-4.67[facility] Mer[facility] HospitalComment on above:Performed By: #### THYR #### [facility] ([facility]) [address] [place] [address] VIRProgesterone [Mass/Vol]on 85-59-2453QVUSOBWKZHZQ5.0 ng/mL [facility] HospitalComment on above:Result Comment: FEMALES: 1st Tri: 4.7-50.7 ng/ml 2nd Tri: 19.4-45.3 ng/ml MENSTRUATING FEMALES: Follicular: 0.3-1.5 ng/ml Mid Luteal: 5.2-18.6 ng/ml Post Fatou: <0.1-0.8 ng/ml Performed By: #### 2839-9 #### [facility] ([id number]) [address], [address] [place], [place] [address]Vrvpcildgesz [Mass/Vol]on 71-53-6606JSLYCUONWHZT43.1 ng/mLNormal [facility] HospitalComment on above:Result Comment: FEMALES: 1st Tri: 4.7-50.7 ng/ml 2nd Tri: 19.4-45.3 ng/ml MENSTRUATING FEMALES: Follicular: 0.3-1.5 ng/ml Mid Luteal: 5.2-18.6 ng/ml Post Fatou: <0.1-0.8 ng/ml Performed By: #### 2839-9 #### [facility] ([id number]) [address], [address] [place], [place] [address]CR THYROIDon 03-57-3917RW THYROIDUS THYROID CLINICAL INFORMATION: Thyroid disease; Elena's thyroiditis. TECHNIQUE: Real time sonography of the thyroid gland performed. COMPARISON: No relevant prior studies available. FINDINGS: Thyroid size: Normal Right thyroid lobe measures: 4.0 x 1.2 x 1.2 cm Left thyroid lobe measures: 3.8 x 1.5 x 0.8 cm Isthmus: 0.2 cm Overall thyroid texture: Heterogeneous Nodule #1: Solid, hypoechoic nodule in the mid posterior left thyroid lobe with smooth margins and no internal echogenic foci measures approximately 0.7 x 0.5 x 0.4 cm. IMPRESSION: TR 4 nodule in the left thyroid lobe measuring up to 7 mm in maximal mention does not meet size criteria for follow-up sonography. Thyroid gland is normal in size with heterogeneous echotexture. ACR TI-RADS recommendations: TR5 (greater than or equal to 7 points) - FNA if greater than or equal to 1cm, follow-up ultrasoundif nodule is 0.5 - 0.9 cm every year for 5 years. TR4 (4 - 6 points) - FNA if greater than or equal to 1.5 cm, follow-up ultrasound if nodule is 1 -1.4 cm at 1, 2, 3 and 5 years. TR3 (3 points) - FNA if greater than or equal to 2.5 cm, follow-up ultrasound if nodule is 1.5 -2.4cm at 1, 3 and 5 years. TR2 (2 points) & TR1 (0 points) - No FNA or follow-up. Approved by Resident: Kyle Simmons DO on 04/01/2024 11:31 AM I, Jose Aguiar have personally reviewed the image(s) and agree with and/or edited the report Finalized by Jose Aguiar on 04/01/2024 12:41 [facility] [place] Thyroid glandon 62-49-8424PGSCKOWF INFORMATION: Thyroid disease; Elena's thyroiditis. TECHNIQUE: Real time sonography of the thyroid gland performed. COMPARISON: No relevant prior studies available. FINDINGS: Thyroid size: Normal Right thyroid lobe measures: 4.0 x 1.2 x 1.2 cm Left thyroid lobe measures: 3.8 x 1.5 x 0.8 cm Isthmus: 0.2 cm Overall thyroid texture: Heterogeneous Nodule #1: Solid, hypoechoic nodule in the mid posterior left thyroid lobe with smooth margins and no internal echogenic foci measures approximately 0.7 x 0.5 x 0.4 cm. IMPRESSION: TR 4 nodule in the left thyroid lobe measuring up to 7 mm in maximal mention does not meet size criteria for follow-up sonography. Thyroid gland is normal in size with heterogeneous echotexture. ACR TI-RADS recommendations: TR5 (greater than or equal to 7 points) - FNA if greater than or equal to 1cm, follow-up ultrasoundif nodule is 0.5 - 0.9 cm every year for 5 years. TR4 (4 - 6 points) - FNA if greater than or equal to 1.5 cm, follow-up ultrasound if nodule is 1 -1.4 cm at 1, 2, 3 and 5 years. TR3 (3 points) - FNA if greater than or equal to 2.5 cm, follow-up ultrasound if nodule is 1.5 -2.4cm at 1, 3 and 5 years. TR2 (2 points) & TR1 (0 points) - No FNA or follow-up. Approved by Resident: Kyle Simmons DO on 04/01/2024 11:31 AM Jose Landry have personally reviewed the image(s) and agree with and/or edited the report Finalized by Jose Aguiar on 04/01/2024 12:41 Jose Moore MD - 04/01/2024 CLINICAL INFORMATION: Thyroid disease; Elena's thyroiditis. TECHNIQUE: Real time sonography of the thyroid gland performed. COMPARISON: No relevant prior studies available. FINDINGS: Thyroid size: Normal Right thyroid lobe measures: 4.0 x 1.2 x 1.2 cm Left thyroid lobe measures: 3.8 x 1.5 x 0.8 cm Isthmus: 0.2 cm Overall thyroid texture: Heterogeneous Nodule #1: Solid, hypoechoic nodule in the mid posterior left thyroid lobe with smooth margins and no internal echogenic foci measures approximately 0.7 x 0.5 x 0.4 cm. IMPRESSION: TR 4 nodule in the left thyroid lobe measuring up to 7 mm in maximal mention does not meet size criteria for follow-up sonography. Thyroid gland is normal in size with heterogeneous echotexture. ACR TI-RADS recommendations: TR5 (greater than or equal to 7 points) - FNA if greater than or equal to 1cm, follow-up ultrasoundif nodule is 0.5 - 0.9 cm every year for 5 years. TR4 (4 - 6 points) - FNA if greater than or equal to 1.5 cm, follow-up ultrasound if nodule is 1 -1.4 cm at 1, 2, 3 and 5 years. TR3 (3 points) - FNA if greater than or equal to 2.5 cm, follow-up ultrasound if nodule is 1.5 -2.4cm at 1, 3 and 5 years. TR2 (2 points) & TR1 (0 points) - No FNA or follow-up. Approved by Resident: Kyle Simmons DO on 04/01/2024 11:31 AM Jose Landry have personally reviewed the image(s) and agree with and/or edited the report Finalized by Jose Aguiar on 04/01/2024 12:41 PM [facility]US Thyroid glandOrdered By: Jose Aguiar on 04-01-2024 [facility] Work Phone: us Thyroid glandon 56-36-3811Gxbyqnnxb Study observation (narrative)[facility] CenterFREE T4on 94-25-2136Dsnr T4 [Mass/Vol]1.73 ng/dLHigh0.61-1.60ProChrist[facility] Christi – ShorelineComment on above: Performed By: #### 3016-3, 3024-7 #### [facility] ([id number]) [address] [place] [address], [address] [place], [place] [address]YXO Qnon 87-26-6418IGY7.13 uIU/mLLow0.49-4.67ProChrist[facility]i – ShorelineComment on above:Performed By: #### 3016-3, 3024-7 #### [facility] ([id number]) [address] [place] [address], [address] [place], [place] [address]OON w/ Auto Diffon 41-08-0820Jgencygoi/100 WBC (Bld)0.5 %Normal 0.0-2.0[facility] HospitalComment on above:Performed By: #### [id number] #### [facility] [address] [place], [place] [address]Yslzfnxyu/Leukocytes Auto (Bld) [Pure # fraction]0.1 E9/LNormal 0.0-0.2[facility] HospitalComment on above:Performed By: #### [id number] #### [facility] [address] [place], [place] [address]Jwvsodfsoxt (Bld) [#/Vol]0.1 E9/LNormal0.0-0.5[facility] HospitalComment on above:Performed By: #### [id number] #### [facility] [address] [place], [place] [address]Giodrpqelmn/100 WBC (Bld)0.8 %Normal0.0-8.0[facility] HospitalComment on above:Performed By: #### [id number] #### [facility] [address] [place] [address]Hvvtwruyzyw distribution width (RBC) [Ratio]13.8 %Normal 10.9-14.2FMercy Health Urbana HospitalComment on above:Performed By: #### [id number] #### [facility] [address] [place] [address]Seubusxzip (Bld) [Volume fraction]44.3 %Oqwuav43.0-46.0[facility] HospitalComment on above:Performed By: #### [id number] #### [facility] [address] [place] [address]Vgfbvkarnk (Bld) [Mass/Vol]14.4 g/bDTivtsc38.0-16.0[facility] HospitalComment on above:Performed By: #### [id number] #### [facility] [address] [place] [address]Ahtprjuauwd (Bld) [#/Vol]3.0 E9/LNormal1.0-4.0[facility] HospitalComment on above:Performed By: #### [id number] #### [facility] [address] [place] [address]Wtpmzjfzjtc/100 WBC (Bld)28.3 %Ffvbxh37.0-50.0[facility] HospitalComment on above:Performed By: #### [id number] #### [facility] [address] [place] [address]FWA (RBC) [Entitic mass]29.5 ubUgvpft77.0-34.0[facility] HospitalComment on above:Performed By: #### [id number] #### [facility] [address] [place] [address] 17[address]RQWW (RBC) [Mass/Vol]32.6 g/pKIuviab46.4-36.0[facility] HospitalComment on above:Performed By: #### [id number] #### [facility] [address] [place] [address] 47[address]RXL (RBC) [Entitic vol]90.6 gSJimsxt92.0-100.0[facility] HospitalComment on above:Performed By: #### [id number] #### [facility] [address] [place] [address]Obqoizrvt (Bld) [#/Vol]0.6 E9/LNormal0.2-1.0[facility] HospitalComment on above:Performed By: #### [id number] #### [facility] [address] [place] [address]Gxrtvpqvwbt (Bld) [#/Vol]6.9 E9/LNormal2.0-7.5FMercy Health Urbana HospitalComment on above:Performed By: #### [id number] #### [facility] [address] [place] [address]Tfgnknvcemr/100 WBC (Bld)64.7 %Mpaljq09.0-75.0[facility] HospitalComment on above:Performed By: #### [id number] #### [facility] [address] [place] [address]Rktedxyk mean volume (Bld) [Entitic vol]9.2 fLNormal6.4-10.8 [facility] HospitalComment on above:Performed By: #### [id number] #### [facility] [address] [place] [address]Qfsssgoca (Bld) [#/Vol]380.0 E9/EHhfsrg364.0-500.0[facility] HospitalComment on above:Performed By: #### [id number] #### [facility] [address] [place] [address] 350[address]TDL (Bld) [#/Vol]4.9 E12/LNormal4.3-5.9[facility] HospitalComment on above:Performed By: #### [id number] #### [facility] [address] [place] [address]27[address]BVO corrected for nucl RBC Auto (Bld) [#/Vol]10.7 E9/LNormal 4.0-11.0[facility] HospitalComment on above:Performed By: #### [id number] #### [facility] [address] [place] [address]ZZXhf 52-53-2108Ocmqteo [Mass/Vol]4.6 g/dLNormal3.3-5.0[facility] HospitalComment on above:Performed By: #### [id number] #### [facility] [address] [place], [place] [address]Sxaaxiz/Globulin (S) [Mass conc ratio]1.7Qorfdu3.1-2.2FMercy Health Urbana HospitalComment on above:Performed By: #### [id number] #### [facility] [address] [place] [address] 918[address]XAI [Catalytic activity/Vol]65 Int._Unit/SMmsweo38-57ZctuucTrumbull Memorial HospitalComment on above:Performed By: #### [id number] #### [facility] [address] [place], [place] [address]KJJ No additional P-5'-P [Catalytic activity/Vol]13 Int._Unit/L Normal6-46[facility] HospitalComment on above:Performed By: #### [id number] #### [facility] [address], [place] [address]Clhiu gap [Moles/Vol]10 mmol/LNormal6-16[facility] HospitalComment on above:Performed By: #### [id number] #### [facility] [address], [place] [address]YVP [Catalytic activity/Vol]16 Int._Unit/LNormal5-43[facility] HospitalComment on above:Performed By: #### [id number] #### [facility] [address], [place] [address]Wbnreaeur [Mass/Vol]0.4 mg/dLNormal0.0-1.1FMercy Health Urbana HospitalComment on above:Performed By: #### [id number] #### [facility] [address], [place] [address]Upzkqsc [Mass/Vol]9.6 mg/dLNormal8.9-11.1FMercy Health Urbana HospitalComment on above:Performed By: #### [id number] #### [facility] [address], [place] [address]Xgagruig [Moles/Vol]103 mmol/RTwxpmw037-452ZcqylkTrumbull Memorial HospitalComment on above:Performed By: #### [id number] #### [facility] [address], [place] [address]AM6 [Moles/Vol]28 mmol/YFbelnp92-79XckyxpTrumbull Memorial Hospital Comment on above:Performed By: #### [id number] #### [facility] [address], [place] [address]Cjsquknupg [Mass/Vol]0.8 mg/dLNormal0.5-1.3FMercy Health Urbana HospitalComment on above:Performed By: #### [id number] #### [facility] [address], [place] [address]Voylsubb (S) [Mass/Vol]3.1 g/dLNormal1.4-4.0[facility] HospitalComment on above:Performed By: #### [id number] #### [facility] [address], [place] [address]Dkuyyho [Mass/Vol]88 mg/kETyqlnr51-954KsvlyhTrumbull Memorial HospitalComment on above:Performed By: #### [id number] #### [facility] [address], [place] [address]Lovqqqgal [Moles/Vol]4.1 mmol/LNormal3.5-5.3FMercy Health Urbana HospitalComment on above:Performed By: #### [id number] #### [facility] [address], [place] [address]Ebawwiv [Mass/Vol]7.7 g/dLNormal6.0-7.8[facility] HospitalComment on above:Performed By: #### [id number] #### [facility] [address], [place] [address]Torbxs [Moles/Vol]137 mmol/BTvbodj442-318VygttfTrumbull Memorial HospitalComment on above:Performed By: #### [id number] #### [facility] [address], [place] [address]Bbxk nitrogen [Mass/Vol]16 mg/dLNormal5-21[facility] HospitalComment on above:Performed By: #### [id number] #### [facility] [address], [place] [address]Ullg nitrogen/Creatinine [Mass ratio]20 No MadvpIzommz40-86 [facility] HospitalComment on above:Performed By: #### [id number] #### [facility] [address], [place] [address]Jxxmc Panelon 27-80-7235Uunaoimvujk [Mass/Vol]151 mg/dLNormal 120-200[facility] HospitalComment on above:Performed By: #### [id number] #### [facility] [address], [place] [address]Gmcsatxvrvk in HDL [Mass/Vol]35 mg/dLInvalid Interpretation CodeTrumbull Memorial HospitalComment on above:Result Comment: '>= 60 LOW RISK' '<= 40 HIGH RISK'Performed By: #### [id number] #### [facility] [address], [place] [address]Pddypdzojgh in LDL [Mass/Vol]96 mg/dLNormal<=129[facility] HospitalComment on above:Performed By: #### [id number] #### [facility] [address], [place] [address]Kplrxhnqzwm in VLDL [Mass/Vol]43 mg/dLHigh7-40Tr[facility] HospitalComment on above:Performed By: #### [id number] #### [facility] [address], [place] [address]Jtugehrjefmu [Mass/Vol]215 mg/dLHigh<=149Tr[facility] HospitalComment on above:Performed By: #### [id number] #### [facility] [address] [facility] [place], [place] [address]fEAHmi 77-53-1955vFKL525 mL/min/1.73 m6Kjigfy>=59Tr[facility] Memorial HospitalComment on above:Performed By: #### [id number] #### [facility] [address], [place] [address]Kkuxqg Medicine Office/Clinic Noteon 23-80-4278Ooexyj Medicine Office/Clinic NoteFami Medicine Office/Clinic Note Chief Complaint Evaluating and managing current health conditions including migraines. HPI Staff Keysha is a 28 year old female presenting for wellness PE and labs Health Maintenance: Colonoscopy: none Mammo: has had multiple breast US due to cysts Pap: due but gets yearly Last Labs: none History of Present Illness The patient is a 28-year-old female presenting with management concerns regarding existing health conditions, specifically Elena's thyroiditis, polycystic ovary syndrome, and migraines. The patient reports that her thyroid levels, including TSH and T4, have been stable following recent evaluation. She has historically had elevated thyroid levels, challenging management, but is currently stable. In terms of reproductive health, the patient is actively attempting to conceive but has experienced a miscarriage in August and no successful conception thereafter. She is utilizing medications such as metformin, with progesterone available at home, though it is nearing expiration. Medical treatment for her polycystic ovary syndrome has included letrozole, yet she plans to restart this regimen. The patient also experiences intermittent migraines that were previously stabilized with ubrogepant(Ubrelvy), but insurance issues have required trials of alternative triptans. The patient has triednaratriptan and noted significant adverse effects. Presently, she uses naproxen and is inquiring about alternatives, considering her ongoing attempts to conceive, which limits medication options. Most recently, abortive strategies have included acetaminophen (Tylenol) and naproxen with variable efficacy. Review of Systems PHQ Score Initial Depression Screen Score: 0 SCORE Physical Exam Vitals & Measurements T: 36.9 ???C(Oral) HR: 94(Peripheral) RR: 16 BP: 112/70 SpO2: 96% HT: 71 in HT: 180 cm WT: 77.5 kg WT: 170.858 lb BMI: 23.92 Abdomen: Soft, Nontender, Non-distended, + BS General: alert, no acute distress ENMT: oral mucosa moist Cardiovascular: Regular rate and rhythm, normal peripheral perfusion Respiratory: Lungs clear to auscultation, respirations non labored Extremities: no deformity, no trauma Neurological: oriented x 4, level of consciousness appropriate for age, CN II- XII intact, motor strength equal & normal bilaterally, speech normal Abdomen: Soft, Non-tender, Non-distended, + Bowel sounds Assessment/Plan 1. Physical exam (Z00.00: Encounter for general adult medical examination without abnormal findings) Anticipatory guidance given. Discussed diet and exercise. Discussed immunizations. Ordered: CBC w/ Auto Diff Comprehensive Metabolic Panel Lab Specimen Collect [id number] Lipid Panel 2. 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 Continue current thyroid supplementation and monitor thyroid function regularly to ensure euthyroid status is maintained. Ordered: CBC w/ Auto Diff Comprehensive Metabolic Panel Lab Specimen Collect [id number] Lipid Panel 3. Mild persistent asthma (J45.30: Mild persistent asthma, uncomplicated) Monitor asthma symptoms and adjust medications as needed. Ensure that the patient has an asthma action plan in place. Ordered: CBC w/ Auto Diff Comprehensive Metabolic Panel Lab Specimen Collect [id number] Lipid Panel 4. Polycystic ovary syndrome (E28.2: Polycystic ovarian syndrome) Continue metformin and initiate letrozole therapy in an attempt to enhance fertility. Monitor menstrual cycles and adjust medication as necessary. Renew progesterone prescription to ensure availability. Ordered: CBC w/ Auto Diff Comprehensive Metabolic Panel Lab Specimen Collect [id number] Lipid Panel 5. Nonsmoker (Z78.9: Other specified health status) Please continue to not smoke. Ordered: CBC w/ Auto Diff Comprehensive Metabolic Panel Lipid Panel 6. Migraine, unspecified, not intractable, without status migrainosus (G43.909) Consider utilizing alternative triptans; discuss safe options, such as naratriptan, which may be appropriate given the patient's fertility goals. Provide samples as needed, and adjust abortive therapy based on the patient's response and tolerability. Document ineffective treatments to facilitate ins urance approvals if required. 28-year-old female with a history of Elena's thyroiditis and polycystic ovary syndrome, now presenting for management of migraines and evaluation of overall health condition stability. Her previous thyroid imbalance appears to be under control following recent laboratory evaluations. The patient is also managing chronic health conditions while addressing fertility challenges related to her polycystic ovary syndrome. She has experienced insurance-related barriers impacting the continuity of migraine medication, necessitating alternatives appropriate for her reproductive intentions. Follow-up No qualifying data available Problem List/Past Medica (more content not included)...[facility] HospitalComment on above:Result Comment: Electronically Signed By: Chen Lucia MD\.br\Date and Time Signed: 01/15/24 16:06 ESTUS Breast - lefton [id number], [place] [address] Ultrasound Report Signed Patient: KEYSHA GARDNER MR#: [id number] : 1995 Acct:[id number] Age/Sex: 28 / F ADM Date: 10/12/23 Loc: US Attending Dr: Gigi Tafoya D.O. Ordering Physician: Gigi Tafoya D.O. Date of Service: 10/12/23 Procedure(s): US breast LT complete Accession Number(s): [id number] cc: Gigi Tafoya D.O.; CHEN LUCIA Patient Name: KEYSHA GARDNER MR#: [id number] : 1995 Exam Date: 10/12/2023 Ordering Doctor: DR Gigi Tafoya . RADIOLOGY REPORT PROCEDURE: US BREAST LT COMPLETE COMPARISON: US BREAST LT COMPLETE, 04/18/2023. INDICATIONS: Left Breast Abscess N61.1 TECHNIQUE: Breast ultrasound was performed, with evaluation focusing only on specific areas of concern. FINDINGS: DIAGNOSTIC CATEGORY 2--BENIGN FINDING: LEFT BREAST: Heterogeneous hypoechoic area at the 12 o'clock position at site of prior abscess, 2.0 x 1.4 x 0.7 cm. The patient is asymptomatic and this likely represents residual scarring. Stable small 3 mm lymph node versus nodule at the 1 o'clock position. RECOMMENDATIONS: CLINICAL EVALUATION. PLEASE NOTE: A NORMAL ULTRASOUND EXAMINATION DOES NOT EXCLUDE THE POSSIBILITY OF BREAST CANCER. A CLINICALLY SUSPICIOUS PALPABLE LUMP SHOULD BE BIOPSIED. Dictated by: Tri Berrios M.D. on 10/12/2023 at 15:36 Approved by: Tri Berrios M.D. on 10/12/2023 at 15:38 Dictated By: Tri Berrios M.D. Signed By: 10/12/23 1539 DD/ 1538 TD/TT: Clinical Research Management Associate:TBHRadiology, Radiologist, MD - 10/12/2023 [place] [address] Ultrasound Report Signed Patient: KEYSHA GARDNER MR#: [id number] : 1995 Acct:[id number] Age/Sex: 28 / F ADM Date: 10/12/23 Loc: US Attending Dr: Ggii Tafoya D.O. Ordering Physician: Gigi Tafoya D.O. Date of Service: 10/12/23 Procedure(s): US breast LT complete Accession Number(s): [id number] cc: Gigi Tafoya D.O.; CHEN LUCIA Patient Name: KEYSHA GARDNER MR#: [id number] : 1995 Exam Date: 10/12/2023 Ordering Doctor: DR Gigi Tafoya . RADIOLOGY REPORT PROCEDURE: US BREAST LT COMPLETE COMPARISON: US BREAST LT COMPLETE, 04/18/2023. INDICATIONS: Left Breast Abscess N61.1 TECHNIQUE: Breast ultrasound was performed, with evaluation focusing only on specific areas of concern. FINDINGS: DIAGNOSTIC CATEGORY 2--BENIGN FINDING: LEFT BREAST: Heterogeneous hypoechoic area at the 12 o'clock position at site of prior abscess, 2.0 x 1.4 x 0.7 cm. The patient is asymptomatic and this likely represents residual scarring. Stable small 3 mm lymph node versus nodule at the 1 o'clock position. RECOMMENDATIONS: CLINICAL EVALUATION. PLEASE NOTE: A NORMAL ULTRASOUND EXAMINATION DOES NOT EXCLUDE THE POSSIBILITY OF BREAST CANCER. A CLINICALLY SUSPICIOUS PALPABLE LUMP SHOULD BE BIOPSIED. Dictated by: Tri Berrios M.D. on 10/12/2023 at 15:36 Approved by: Tri Berrios M.D. on 10/12/2023 at 15:38 Dictated By: Tri Berrios M.D. Signed By: 10/12/23 1539 DD/ TD/TT: Clinical Research Management Associate: TERE GaleasRadiology Study observation (narrative)TERE GaleasUS Breast - leftOrdered By: Radiologist Radiology on [id number] Work Phone: [phone]-Nudmofzrossbn Formon [id number]-Certification [id number]#1.00TIFLutheran HospitalAmbulatory Visit Summaryon [id number] Visit Summary KEYSHA GARDNER :1995 Visit Date:07/18/2023 Ambulatory Visit Instructions Your Diagnosis BMI 24.0-24.9, adult Nonsmoker Your Care Team Attending Physician - Chen Lucia MD Primary Care Physician - Chen Lucia MD This Is Your Medications List albuterol (Albuterol (Eqv-ProAir HFA) 90 mcg/inh inhalation aerosol) albuterol (albuterol 0.083% Inh Theresa 3 mL) levothyroxine (levothyroxine 175 mcg (0.175 mg) Tab) metformin (metformin 500 mg ER Tab) ondansetron (Zofran ODT 4 mg Tab-Dis) ubrogepant (Ubrelvy) Procedures Performed Unlisted procedure, foot or toes (2007). Discharge Vitals Temperature (Temporal Artery) 37.1 ?C Heart Rate (Peripheral) 90 Respiratory Rate 16 Blood Pressure 112/74 Height 180 cm Height 71 in Weight 78.8 kg Weight 173.36 lb BMI 24.32 What to do next Scheduled Follow-Up Appointments Monday 3:30 PM EST With: Chen Lucia MD Where: [facility] Medicine Office/Clinic Noteon [id number] Medicine Office/Clinic NoteHPI Staff Keysha is a 28 year old female presenting for asthma and migraines Headaches: Time of Onset: had one for 3 weeks, finally went away today Location: usually behind the eye but this time had a weird aura that messed with her visiont for a day _ _ _ Typical headache frequency: first one since and delivery Prior headache work-up: MRI around 2018 or 2019 was normal _ _ Had exacerbation of asthma 3 weeks ago lasted about a week. It's very well controlled, first exac she's had in quite a while questions/concerns: needs the abuterol solution and metformin refilled Review of Systems PHQ Score Initial Depression Screen Score: 0 SCORE Physical Exam Vitals & Measurements T: 37.1 ?C(Temporal Artery) HR: 90(Peripheral) RR: 16 BP: 112/74 SpO2: 99% HT: 71 in HT: 180 cm WT: 78.8 kg WT: 173.36 lb BMI: 24.32 General: alert, no acute distress ENMT: oral mucosa moist, Cardiovascular: regular rate and rhythm, normal peripheral perfusion Respiratory: Lungs CTA, respirations non labored Extremities: no deformity, no trauma Neurological: oriented x 4, LOC appropriate for age, CN II-XII intact, motor strength equal & normal bilaterally, speech normal Abdomen: Soft, Nontender, Non-distended, + BS Assessment/Plan 1. Mild persistent asthma (J45.30: Mild persistent asthma, uncomplicated) - Pt doing well - Needs refills - Had one exacerbation and steroids were called in - No other issues 2. Hypothyroidism (E03.9: Hypothyroidism, unspecified) - Stable - See endo - No issues 3. Migraines (G43.909: Migraine, unspecified, not intractable, without status migrainosus) - Well controlled on meds - No issues at this time 4. BMI 24.0-24.9, adult (Z68.24: Body mass index [BMI] 24.0-24.9, adult) - BMI education given - Diet and exercise advised 5. Nonsmoker (Z78.9: Other specified health status) - Please continue to not smoke. Orders: predniSONE, 20 mg = 2 tab(s), Oral, Daily, # 12 tab(s), Refills(s) 0, Pharmacy: [facility]/pharmacy #[id number], cm, 02/14/23 15:15:00 EST, Height/Length Dosing, 78.8, kg, 02/14/23 15:15:00 EST, Weight Dosing Follow-up No qualifying data available Patient Education BMI for Adults Problem List/Past Medical History Ongoing Hypothyroidism Mild persistent asthma Physical exam Historical No qualifying data Procedure/Surgical History Unlisted procedure, foot or toes (2007). Medications Albuterol (Eqv-ProAir HFA) 90 mcg/inh inhalation aerosol, 2 puff(s), Inhalation, q6hr, PRN, 3 refills albuterol 0.083% Inh Theresa 3 mL, 2.5 mg= 3 mL, NEB, q4hr levothyroxine 175 mcg (0.175 mg) Tab, 175 mcg= 1 tab(s), Oral, Daily metformin 500 mg ER Tab, 500 mg= 1 tab(s), Oral, Daily, Not taking Ubrelvy, PRN Zofran ODT 4 mg Tab-Dis, 4 mg= 1 tab(s), Oral, q8hr, PRN, Not taking Allergies Bactrim (Hives) Social History Alcohol - Denies Alcohol Use, 09/22/2021 Household alcohol concerns: No., 07/12/2022 Substance Abuse - Denies Substance Abuse, 09/22/2021 Household substance abuse concerns: No., 07/12/2022 Tobacco - Denies Tobacco Use, 07/12/2022 Never (less than 100 in lifetime) Tobacco Use:. Never Smokeless Tobacco Use:. Household tobacco concerns: No., 07/18/2023 Family History Acute myocardial infarction: Father. Diabetes mellitus type 2: Grandparent. Immunizations Vaccine Date Status diphtheria/pertussis, acel/tetanus adult 11/26/2022 Recorded influenza virus vaccine, inactivated 12/2021 Recorded SARS-CoV-2 (COVID-19) mRNA-1273 vaccine 02/16/2021 Recorded SARS-CoV-2 (COVID-19) mRNA-1273 vaccine 01/19/2021 Recorded influenza virus vaccine, inactivated 11/22/2019 Recorded diphtheria/pertussis, acel/tetanus adult 10/07/2016 Recorded meningococcal conjugate vaccine 08/20/2012 Recorded diphtheria/pertussis, acel/tetanus adult 09/18/2006 Recorded measles/mumps/rubella virus vaccine 01/29/1999 Recorded DTaP, unspecified formulation 01/29/1999 Recorded measles/mumps/rubella virus vaccine 09/06/1995 Recorded hepatitis B adult vaccine 09/06/1995 Recorded haemophilus b conjugate (PRP-T) vaccine 1994 Recorded DTaP, unspecified formulation 1994 Recorded haemophilus b conjugate (PRP-T) vaccine 1994 Recorded DTaP, unspecified formulation 1994 Recorded haemophilus b conjugate (PRP-T) vaccine 1994 Recorded DTaP, unspecified formulation 1994 Recorded hepatitis B adult vaccine 1994 Recorded hepatitis B adult vaccine [address] [facility] Comment on above:Result Comment: Electronically Signed By: Rea FREIRE, Chen Johnson.br\Date and Time Signed: 07/18/23 16:07 EDTPatient Educationon 07-18-2023 Patient EducationNutrition BMI for Adults What is BMI? Body mass index (BMI) is a number that is calculated from a person's weight and height. BMI can help estimate how much of a person's weight is composed of fat. BMI does not measure body fat directly.Rather, it is an alternative to procedures that directly measure body fat, which can be difficult and expensive. BMI can help identify people who may be at higher risk for certain medical problems. What are BMI measurements used for? BMI is used as a screening tool to identify possible weight problems. It helps determine whether a person is obese, overweight, a healthy weight, or underweight. BMI is useful for: ? Identifying a weight problem that may be related to a medical condition or may increase the risk for medical problems. ? Promoting changes, such as changes in diet and exercise, to help reach a healthy weight. BMI screening can be repeated to see if these changes are working. How is BMI calculated? BMI involves measuring your weight in relation to your height. Both height and weight are measured,and the BMI is calculated from those numbers. This can be done either in [place] or metric measurements. Note that charts and online BMI calculators are available to help you find your BMI quickly and easily without having to do these calculations yourself. To calculate your BMI in [place] measurements: 1. Measure your weight in pounds (lb). 2. Multiply the number of pounds by 703. ? For example, for a person who weighs 180 lb, multiply that number by 703, which equals 126,540. 3. Measure your height in inches. Then multiply that number by itself to get a measurement called inches squared. ? For example, for a person who is 70 inches tall, the inches squared measurement is 70 inches x 70 inches, which equals 4,900 inches squared. 4. Divide the total from step 2 (number of lb x 703) by the total from step 3 (inches squared): 126,540 ? 4,900 = 25.8. This is your BMI. To calculate your BMI in metric measurements: 1. Measure your weight in kilograms (kg). 2. Measure your height in meters (m). Then multiply that number by itself to get a measurement called meters squared. ? For example, for a person who is 1.75 m tall, the meters squared measurement is 1.75 m x 1.75 m, which is equal to 3.1 meters squared. 3. Divide the number of kilograms (your weight) by the meters squared number. In this example: 70 ?3.1 = 22.6. This is your BMI. What do the results mean? BMI charts are used to identify whether you are underweight, normal weight, overweight, or obese. The following guidelines will be used: ? Underweight: BMI less than 18.5. ? Normal weight: BMI between 18.5 and 24.9. ? Overweight: BMI between 25 and 29.9. ? Obese: BMI of 30 or above. Keep these notes in mind: ? Weight includes both fat and muscle, so someone with a muscular build, such as an athlete, may have a BMI that is higher than 24.9. In cases like these, BMI is not an accurate measure of body fat. ? To determine if excess body fat is the cause of a BMI of 25 or higher, further assessments may need to be done by a health care provider. ? BMI is usually interpreted in the same way for men and women. Where to find more information For more information about BMI, including tools to quickly calculate your BMI, go to these websites: ? Centers for Disease Control and Prevention: www.cdc.gov ? [place] Heart Association: www.heart.org ? National Heart, Lung, and Blood Stevens: www.nhlbi.nih.gov Summary ? Body mass index (BMI) is a number that is calculated from a person's weight and height. ? BMI may help estimate how much of a person's weight is composed of fat. BMI can help identify those who may be at higher risk for certain medical problems. ? BMI can be measured using [place] measurements or metric measurements. ? BMI charts are used to identify whether you are underweight, normal weight, overweight, or obese. This information is not intended to replace advice given to you by your health care provider. Make sure you discuss any questions you have with your health care provider. Document Revised: 11/06/2019 Document Reviewed: 09/13/2019 [facility] Patient Education ? [address] [employer] CNOVon [id number] Visit (ANTONETTE) KEYSHA GARDNER ([id number]) 1995 F Date Time Provider Department 06/12/23 9:00 AM JOSE LEROY During your visit today, we recorded the following information about you: Pulse Blood pressure Weight Height 87/minute 127/77 78 kg 1.778 m Jose Leroy MD 07/12/2023 3:23 PM Addendum . [facility] General Endocrinology - [address], [address] General Endocrinology [address], [address] [place] [address] Patient's name: Keysha Gardner Patient's date of : 1995 Date of encounter: 06/12/2023 History of present illness: Keysha Gardner is a 28 year old female who presents for follow up of an endocrinology issue. Thyroid gland disorder: Previous history: 2000: Around this time, age ~5 (first grade) was found to have hypothyroidism. Per patient, policy adviser felt lump in neck . 2000: Ultrasound of thyroid, at outside hospital: I dont have this to review. 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 Started on a dose of levothyroxine. 6112-5744: Followed by pediatric endocrinology. Multiple ultrasound studies. No fine needle aspiration biopsy , per patient. 04/2014: Started oral contraceptive pills. 07/2014: Initial consultation with me. TSH 3.960 (0.358-3.740 uIU/mL), free T4 1.52 [...] (0.76-1.46 ng/dL), on levothyroxine 150 mcg daily. 07/2015: TSH 0.865 (0.358-3.740 uIU/mL), free T4 1.45 (0.76-1.46 ng/dL), on levothyroxine 150 mcg daily. 07/2015: Ultrasound, intra-office: Heterogeneous gland. Right lobe 50.6 x 15.0 x 11.4 mm (length x width x depth) Left lobe 48.7 x 15.2 x 8.1 mm (length x width x depth) Isthmus 2.1 mm depth. No distinct nodules or cysts. No suspicious nodes in neck levels (bilateral) , VII, IV, III, IIa, IIb. 05/2016: TSH 0.376 (0.358-3.740 uIU/mL), free T4 1.50 (0.76-1.46 ng/dL), free T3 3.2 (2.2-4.0 pg/mL), on levothyroxine 150 mcg daily. Some tachycardia issues. I lowered her to levothyroxine 137 mcg daily. 05/2016: Thyroid Stimulating Immunoglobulin (TSI) 43 (<150 %), this was checked due to symptoms. 09/2016: TSH 2.560 (0.358-3.740 uIU/mL), free T4 1.33 (0.76-1.46 ng/dL), free T3 2.8 (2.2-4.0 pg/mL), on levothyroxine 137 mcg daily. Now with some fatigue issues, and cardiac issues resolved. Patient wanted re-trial of the 150 mcg dose. I changed her to levothyroxine 150 mcg daily. 06/2017: TSH 1.090 (0.358-3.740 uIU/mL), free T4 1.74 (0.76-1.46 ng/dL), free T3 3.0 (2.2-4.0 pg/mL), on levothyroxine 150 mcg daily. 06/2018: TSH 3.330 (0.358-3.740 uIU/mL), free T4 1.50 (0.76-1.46 ng/dL), free T3 2.7 (2.2-4.0 pg/mL), on levothyroxine 150 mcg daily. I increased her dose to levothyroxine 175 mcg daily. 08/2018: TSH 0.435 (0.400 - 5.500 uU/mL), free T4 1.8 (0.9-1.7 ng/dL), free T3 3.1 (2.3-4.1 pg/mL), on levothyroxine 175 mcg daily. This was a lab appointment due to symptoms. 05/2019: TSH 0.19 (0.44-3.98 mIU/L), free T4 1.16 (0.61-1.12 ng/dL), free T3 3.2 (2.3-4.2 pg/mL), on levothyroxine 175 mcg daily. I lowered her to levothyroxine 150 mcg daily. 08/2019: TSH 5.220 (0.270-4.200 uIU/mL), on levothyroxine 150 mcg daily. I changed her to levothyroxine 150 mcg x 7.5 pills per week (mean dose 161 mcg daily.) this was a lab appointment due to symptoms. 10/2019: TSH 1.420 (0.270-4.200 uU/mL), free T4 2.5 (0.9-1.7 ng/dL), on levothyroxine 150 mcg x 7.5 pills per week (mean dose 161 mcg daily.) 12/2019: TSH 0.276 (0.270-4.200 uU/mL), free T4 2.2 (0.9-1.7 ng/dL), on levothyroxine 150 mcg x 7.5 pills per week, mean daily dose 161 mcg. 05/2020: TSH 0.555 (0.270-4.200 uIU/mL), free T4 2.1 (0.9-1.7 ng/dL), free T3 3.5 (2.3-4.1 pg/mL), on levothyroxine 150 mcg x 7.5 pills per week, mean dose 161 mcg. 05/2020: [facility]: Right lobe 48.9 x 12.0 x 13.3 mm (length x width x depth), Left lobe 49 x 14.5 x 11.0 mm (length x width x depth), Isthmus 2.3 mm (length x width x depth). Heterogeneity in both lobes. No distinct nodules. Findings consistent with her known (more content not included)...NormalHoulton Regional HospitalRAD - Ultrasound Reporton [id number] - Ultrasound [id number]#1.00TIFFNoUC Medical CenterUS Breast - lefton 05-34-7640[place] [address] Ultrasound Report Signed Patient: KEYSHA GARDNER MR#: [id number] : 1995 Acct:[id number] Age/Sex: 27 / F ADM Date: 04/18/23 Loc: US Attending Dr: Gigi Tafoya D.O. Ordering Physician: Gigi Tafoya D.O. Date of Service: 04/18/23 Procedure(s): US breast LT complete Accession Number(s): [id number] cc: Gigi Tafoya D.O.; CHEN LUCIA Patient Name: KEYSHA GARDNER MR#: [id number] : 1995 Exam Date: 04/18/2023 Ordering Doctor: DR Gigi Tafoya . RADIOLOGY REPORT PROCEDURE: US BREAST LT COMPLETE COMPARISON: US BREAST LT LIMITED, 01/21/2023. US BREAST LT COMPLETE, 01/20/2023. INDICATIONS: left breast abscess N61.1 TECHNIQUE: Breast ultrasound was performed, with evaluation focusing only on specific areas of concern. FINDINGS: DIAGNOSTIC CATEGORY 3--PROBABLY BENIGN FINDING. THE FOLLOWING FINDING(S) HAS A HIGH PROBABILITY OF A BENIGN ETIOLOGY: LEFT BREAST: Clearing of previously seen abscess with mild residual scarring. Incidental small benign appearing lymph node. Nonspecific nodule versus complex cyst the 4 o'clock position, 7 millimeters diameter of doubtful clinical significance. As a precautionary measure consider follow-up ultrasound evaluation in 6 months to document stability. If stable at that time, no additional follow-up recommended after that. RECOMMENDATIONS: SHORT TERM FOLLOW-UP ULTRASOUND LEFT BREAST IN 6 MONTHS. PLEASE NOTE: A NORMAL ULTRASOUND EXAMINATION DOES NOT EXCLUDE THE POSSIBILITY OF BREAST CANCER. A CLINICALLY SUSPICIOUS PALPABLE LUMP SHOULD BE BIOPSIED. Dictated by: Tri Berrios M.D. on 04/18/2023 at 14:28 Approved by: Tri Berrios M.D. on 04/18/2023 at 14:33 Dictated By: Tir Berrios M.D. Signed By: 04/18/231433 DD/ 32 TD/TT: Clinical Research Management Associate:TBHRadiology, Radiologist, - 05/03/2023 [place] [address] Ultrasound Report Signed Patient: KEYSHA GARDNER MR#: [id number] : 1995 Acct:[id number] Age/Sex: 27 / F ADM Date: 04/18/23 Loc: US Attending Dr: Gigi Tafoya D.O. Ordering Physician: Gigi Tafoya D.O. Date of Service: 04/18/23 Procedure(s): US breast LT complete Accession Number(s): [id number] cc: Gigi Tafoya D.O.; CHEN LUCIA Patient Name: KEYSHA GARDNER MR#: [id number] : 1995 Exam Date: 04/18/2023 Ordering Doctor: DR Gigi Tafoya . RADIOLOGY REPORT PROCEDURE: US BREAST LT COMPLETE COMPARISON: US BREAST LT LIMITED, 01/21/2023. US BREAST LT COMPLETE, 01/20/2023. INDICATIONS: left breast abscess N61.1 TECHNIQUE: Breast ultrasound was performed, with evaluation focusing only on specific areas of concern. FINDINGS: DIAGNOSTIC CATEGORY 3--PROBABLY BENIGN FINDING. THE FOLLOWING FINDING(S) HAS A HIGH PROBABILITY OF A BENIGN ETIOLOGY: LEFT BREAST: Clearing of previously seen abscess with mild residual scarring. Incidental small benign appearing lymph node. Nonspecific nodule versus complex cyst the 4 o'clock position, 7 millimeters diameter of doubtful clinical significance. As a precautionary measure consider follow-up ultrasound evaluation in 6 months to document stability. If stable at that time, no additional follow-up recommended after that. RECOMMENDATIONS: SHORT TERM FOLLOW-UP ULTRASOUND LEFT BREAST IN 6 MONTHS. PLEASE NOTE: A NORMAL ULTRASOUND EXAMINATION DOES NOT EXCLUDE THE POSSIBILITY OF BREAST CANCER. A CLINICALLY SUSPICIOUS PALPABLE LUMP SHOULD BE BIOPSIED. Dictated by: Tri Berrios M.D. on 04/18/2023 at 14:28 Approved by: Tri Berrios M.D. on 04/18/2023 at 14:33 Dictated By: Tri Berrios M.D. Signed By: 04/18/231433 DD/ 32 TD/TT: Clinical Research Management Associate: TERE HealthcareRadiology Study observation (narrative)NOMS HealthcareUS Breast - leftOrdered By: Radiologist Radiology on [id number] Work Phone: cNPRoberta [phone] (ENAGST) KEYSHA GARDNER ([id number]) 1995 F Date Time Provider Department 03/23/23 JOSE LEROY During your visit today, we recorded the following information about you: Kareen Vasquez 03/23/2023 3:49 PM Signed ----- Message from Raven Farr sent at 03/23/2023 3:32 PM EST ----- Regarding: Endocrinology/Rad/Thyroid/Prior Authorization Question Contact: Endocrinology/Rad/Thyroid/Prior Authorization Question Patient has been identified by name and Date of (Y/N): y Patient: Keysha Gardner Date of : 1995 Provider for this encounter: Dr Leroy Reason for the call/escalation: scheduled appt w/ Dr Leroy 06/12/23. Scheduled w/ authorized [facility] referral. Patient said Dr. Leroy's office usually submits a prior authorization to her insurance company before visit Person calling if other than patient: n/a Return call to if other than patient: n/a Best contact number: [phone] Thank you, Raven Farr March 23, 2023 3:33 PM Kareen Vasquez 03/23/2023 3:49 PM Signed There is a referral in pt chart that is good until 06 13 2023 Kareen Vasquez March 23, 2023 3:49 PM Lm on pt v/m Allergies As of Date: 03/23/2023 Noted Allergy Reaction SULFA (SULFONAMIDE ANTIBIOTICS) 08/20/2015 4 - Hives Date Reviewed: 09/20/2022 Reviewed by: Jose Leroy MD - Fully Assessed Prescriptions as of 03/23/2023 - ondansetron orally disintegrating (ZOFRAN ODT) 4 mg disintegrating tablet Take 4 mg by mouth as needed. - levothyroxine (SYNTHROID) 175 mcg tablet Take 1 tablet by mouth once daily. - vit no.124/iron/folic ( VITAMIN ORAL) Take by mouth. - metoprolol tartrate, short acting, (LOPRESSOR) 25 mg tablet Take 25 mg by mouth as needed. - albuterol (PROVENTIL) 2.5 mg /3 mL (0.083 %) nebulizer solution Use 2.5 mg via nebulizer as needed. - albuterol HFA (PROVENTIL HFA, VENTOLIN HFA) 90 mcg/actuation inhaler Inhale 2 Puffs as instructed every 6 hours. 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 [* Encounter Status:Closed by KAREEN VASQUEZ on 03/23/23[facility] CenterConsultation Noteon 29-00-2110Myzxlitujkvg Note [id number]#1.00[facility] Medical CenterAmbulatory Visit Summaryon 53-18-3856Gxipvzrrmn Visit Summary JJ KEYSHA :1995 Visit Date:02/14/2023 Ambulatory Visit Instructions Your Diagnosis Physical exam BMI 24.0-24.9, adult Nonsmoker Hypothyroidism, unspecified type Your Care Team Attending Physician - Chen Lucia MD Primary Care Physician - Chen Lucia MD This Is Your Medications List albuterol (Albuterol (Eqv-ProAir HFA)) albuterol (albuterol 0.083% Inh Theresa 3 mL) levothyroxine (levothyroxine 175 mcg (0.175 mg) Tab) metformin (metformin 500 mg ER Tab) ondansetron (Zofran ODT 4 mg Tab-Dis) ubrogepant (Ubrelvy) Procedures Performed Unlisted procedure, foot or toes (2007). Discharge Vitals Temperature (Temporal Artery) 36.7 ?C Heart Rate (Peripheral) 86 Respiratory Rate 16 Blood Pressure 100/66 Height 180 cm Height 71 in Weight 78.8 kg Weight 173.36 lb BMI 24.32 Medications What How Much When Instructions Unchanged albuterol (Albuterol (Eqv-ProAir HFA)) As needed for Wheezing Unchanged albuterol (albuterol 0.083% Inh Theresa 3 mL) 3 Milliliter Nebulized inhalation (aerosol) Every 4 hours as needed Unchanged levothyroxine (levothyroxine 175 mcg (0.175 mg) Tab) 1 Tablets By Mouth Every day Unchanged metformin (metformin 500 mg ER Tab) 1 Tablets By Mouth Every day Unchanged ondansetron (Zofran ODT 4 mg Tab-Dis) 1 Tablets By Mouth Every 8 hours as needed for Nausea/Vomiting Unchanged ubrogepant (Ubrelvy) As needed for Migraine headache Allergies Bactrim (Hives) Problems Ongoing - Any problem that you are currently receiving treatment for. First trimester Hypothyroidism Physical exam Patient Survey You may receive a survey via text or e-mail asking about your office visit. Please share your experience with us by completing your survey. We appreciate your feedback and thank you for choosing us for your care. [facility] Medicine Office/Clinic Noteon 98-25-1206Jncynx Medicine Office/Clinic NoteHPI Staff Keysha is a 27 year old female presenting for annual wellness exam Health Maintenance: Colonoscopy: none Mammo: none Pap: UTD Last Labs: 3 weeks ago when in hospital flu: UTD History of Present Illness Here for CPE - NO issues - 9 Weeks post - No issues at this time. Review of Systems PHQ Score Initial Depression Screen Score: 0 SCORE Physical Exam Vitals & Measurements T: 36.7 ?C(Temporal Artery) HR: 86(Peripheral) RR: 16 BP: 100/66 SpO2: 98% HT: 71 in HT: 180 cm WT: 78.8 kg WT: 173.36 lb BMI: 24.32 General: alert, no acute distress ENMT: oral mucosa moist, Cardiovascular: regular rate and rhythm, normal peripheral perfusion Respiratory: Lungs CTA, respirations non labored Extremities: no deformity, no trauma Neurological: oriented x 4, LOC appropriate for age, CN II-XII intact, motor strength equal & normal bilaterally, speech normal Abdomen: Soft, Nontender, Non-distended, + BS Assessment/Plan 1. Physical exam (Z00.00: Encounter for general adult medical examination without abnormal findings) - Anticipatory guidance given. Discussed diet and exercise. Discussed immunizations. 2. BMI 24.0-24.9, adult (Z68.24: Body mass index [BMI] 24.0-24.9, adult) - BMI education given 3. Nonsmoker (Z78.9: Other specified health status) - Please continue to not smoke 4. Hypothyroidism, unspecified type (E03.9: Hypothyroidism, unspecified) - Will recheck in 6 weeks - Labs recently done at the hospital Follow-up No qualifying data available Patient Education BMI for Adults Problem List/Past Medical History Ongoing First trimester Hypothyroidism Physical exam Historical No qualifying data Procedure/Surgical History Unlisted procedure, foot or toes (2007). Medications Albuterol (Eqv-ProAir HFA), PRN albuterol 0.083% Inh Theresa 3 mL, 2.5 mg= 3 mL, NEB, q4hr levothyroxine 175 mcg (0.175 mg) Tab, 175 mcg= 1 tab(s), Oral, Daily metformin 500 mg ER Tab, 500 mg= 1 tab(s), Oral, Daily, Not taking Ubrelvy, PRN Zofran ODT 4 mg Tab-Dis, 4 mg= 1 tab(s), Oral, q8hr, PRN, Self Directed Allergies Bactrim (Hives) Social History Alcohol - Denies Alcohol Use, 09/22/2021 Household alcohol concerns: No., 07/12/2022 Substance Abuse - Denies Substance Abuse, 09/22/2021 Household substance abuse concerns: No., 07/12/2022 Tobacco - Denies Tobacco Use, 07/12/2022 Never (less than 100 in lifetime) Tobacco Use:. Never Smokeless Tobacco Use:. Household tobacco concerns: No., 02/14/2023 Family History Acute myocardial infarction: Father. Diabetes mellitus type 2: Grandparent. Immunizations Vaccine Date Status diphtheria/pertussis, acel/tetanus adult 11/26/2022 Recorded influenza virus vaccine, inactivated 12/2021 Recorded SARS-CoV-2 (COVID-19) mRNA-1273 vaccine 02/16/2021 Recorded SARS-CoV-2 (COVID-19) mRNA-1273 vaccine 01/19/2021 Recorded influenza virus vaccine, inactivated 11/22/2019 Recorded diphtheria/pertussis, acel/tetanus adult 10/07/2016 Recorded meningococcal conjugate vaccine 08/20/2012 Recorded diphtheria/pertussis, acel/tetanus adult 09/18/2006 Recorded measles/mumps/rubella virus vaccine 01/29/1999 Recorded DTaP, unspecified formulation 01/29/1999 Recorded measles/mumps/rubella virus vaccine 09/06/1995 Recorded hepatitis B adult vaccine 09/06/1995 Recorded haemophilus b conjugate (PRP-T) vaccine 1995 Recorded DTaP, unspecified formulation 1994 Recorded haemophilus b conjugate (PRP-T) vaccine 1994 Recorded DTaP, unspecified formulation 1994 Recorded haemophilus b conjugate (PRP-T) vaccine 1994 Recorded DTaP, unspecified formulation 1994 Recorded hepatitis B adult vaccine 1994 Recorded hepatitis B adult vaccine [address] [facility] Comment on above:Result Comment: Electronically Signed By: Rea FREIRE, Chen David\.br\Date and Time Signed: 02/14/23 15:34 ESTPatient Educationon 02-14-2023 Patient EducationNutrition BMI for Adults What is BMI? Body mass index (BMI) is a number that is calculated from a person's weight and height. BMI can help estimate how much of a person's weight is composed of fat. BMI does not measure body fat directly.Rather, it is an alternative to procedures that directly measure body fat, which can be difficult and expensive. BMI can help identify people who may be at higher risk for certain medical problems. What are BMI measurements used for? BMI is used as a screening tool to identify possible weight problems. It helps determine whether a person is obese, overweight, a healthy weight, or underweight. BMI is useful for: ? Identifying a weight problem that may be related to a medical condition or may increase the risk for medical problems. ? Promoting changes, such as changes in diet and exercise, to help reach a healthy weight. BMI screening can be repeated to see if these changes are working. How is BMI calculated? BMI involves measuring your weight in relation to your height. Both height and weight are measured,and the BMI is calculated from those numbers. This can be done either in [place] or metric measurements. Note that charts and online BMI calculators are available to help you find your BMI quickly and easily without having to do these calculations yourself. To calculate your BMI in [place] measurements: 1. Measure your weight in pounds (lb). 2. Multiply the number of pounds by 703. ? For example, for a person who weighs 180 lb, multiply that number by 703, which equals 126,540. 3. Measure your height in inches. Then multiply that number by itself to get a measurement called inches squared. ? For example, for a person who is 70 inches tall, the inches squared measurement is 70 inches x 70 inches, which equals 4,900 inches squared. 4. Divide the total from step 2 (number of lb x 703) by the total from step 3 (inches squared): 126,540 ? 4,900 = 25.8. This is your BMI. To calculate your BMI in metric measurements: 1. Measure your weight in kilograms (kg). 2. Measure your height in meters (m). Then multiply that number by itself to get a measurement called meters squared. ? For example, for a person who is 1.75 m tall, the meters squared measurement is 1.75 m x 1.75 m, which is equal to 3.1 meters squared. 3. Divide the number of kilograms (your weight) by the meters squared number. In this example: 70 ?3.1 = 22.6. This is your BMI. What do the results mean? BMI charts are used to identify whether you are underweight, normal weight, overweight, or obese. The following guidelines will be used: ? Underweight: BMI less than 18.5. ? Normal weight: BMI between 18.5 and 24.9. ? Overweight: BMI between 25 and 29.9. ? Obese: BMI of 30 or above. Keep these notes in mind: ? Weight includes both fat and muscle, so someone with a muscular build, such as an athlete, may have a BMI that is higher than 24.9. In cases like these, BMI is not an accurate measure of body fat. ? To determine if excess body fat is the cause of a BMI of 25 or higher, further assessments may need to be done by a health care provider. ? BMI is usually interpreted in the same way for men and women. Where to find more information For more information about BMI, including tools to quickly calculate your BMI, go to these websites: ? Centers for Disease Control and Prevention: www.cdc.gov ? [place] [employer]: www.heart.org ? National Heart, Lung, and Blood Stevens: www.nhlbi.nih.gov Summary ? Body mass index (BMI) is a number that is calculated from a person's weight and height. ? BMI may help estimate how much of a person's weight is composed of fat. BMI can help identify those who may be at higher risk for certain medical problems. ? BMI can be measured using [place] measurements or metric measurements. ? BMI charts are used to identify whether you are underweight, normal weight, overweight, or obese. This information is not intended to replace advice given to you by your health care provider. Make sure you discuss any questions you have with your health care provider. Document Revised: 11/06/2019 Document Reviewed: 09/13/2019 [facility] Patient Education ? 2022 [facility] Consultation Noteon 50-98-8573Frgjawivztbb Note [id number]#1.00TIFLutheran HospitalAdmission Noteon 42-35-1857Nxgwqtadp Note [id number]#1.00TIFLutheran HospitalOperative Reporton 06-11-3040Wekvwkxqb Report [id number]#1.00[facility] CenterConsultation Noteon 10-45-2878Bxgfvrgmbnbt Note [id number]#1.00[facility] Correspondenceon 25-64-3140HvaocdhAstra Health Center [id number]#1.00TIFKalAtrium Health Pinevillesherry [facility] Correspondence [id number]#1.00TIFEldaParkview Health [facility] Correspondence [id number]#1.00TIFFNoUC Medical CenterRAD - Ultrasound Reporton 51-68-8247WXF - Ultrasound Report [id number]#1.00TIFLutheran HospitalRAD - Ultrasound [id number]#1.00TIFF [facility] BREAST LT LIMITEDon 36-90-6947[place] [address] Ultrasound Report Signed Patient: KEYSHA GARDNER MR#: [id number] : 1995 Acct:[id number] Age/Sex: 27 / F ADM Date: Loc: [facility] Attending Dr: Gigi Tafoya D.O. Ordering Physician: Gigi Tafoya D.O. Date of Service: 01/21/23 Procedure(s): US breast LT limited Accession Number(s): [id number] cc: Gigi Tafoya D.O.; CHEN LUCIA Patient Name: KEYSHA GARDNER MR#: [id number] : 1995 Exam Date: 01/21/2023 Ordering Doctor: DR Gigi Tafoya . RADIOLOGY REPORT PROCEDURE: US BREAST LT LIMITED COMPARISON: None. INDICATIONS: procedure TECHNIQUE: Breast ultrasound was performed, with evaluation focusing only on specific areas of concern. FINDINGS: DIAGNOSTIC CATEGORY 3--PROBABLY BENIGN FINDING. THE FOLLOWING FINDING(S) HAS A HIGH PROBABILITY OF A BENIGN ETIOLOGY: LEFT BREAST: 5 still-images were presented for review and demonstrate aspiration of a small amount of contents from heterogeneous area within left breast 11 o'clock position suspected to represent an abscess. Aspiration was performed by Dr. Bernard. RECOMMENDATIONS: SHORT TERM FOLLOW-UP ULTRASOUND LEFT BREAST IN 2 MONTHS. Pathology results are pending. PLEASE NOTE: A NORMAL ULTRASOUND EXAMINATION DOES NOT EXCLUDE THE POSSIBILITY OF BREAST CANCER. A CLINICALLY SUSPICIOUS PALPABLE LUMP SHOULD BE BIOPSIED. Dictated by: Tri Berrios M.D. on 01/23/2023 at 10:09 Approved by: Tri Berrios M.D. on 01/23/2023 at 10:13 Dictated By: Tri Berrios M.D. Signed By: 01/23/23 1014 DD/ 1013 TD/TT: Clinical Research Management Associate:TBHRadiology, Radiologist, MD - 01/23/2023 [place] [address] Ultrasound Report Signed Patient: KEYSHA GARDNER MR#: [id number] : 1995 Acct:[id number] Age/Sex: 27 / F ADM Date: Loc: [facility] 252-[address]: Gigi Tafoya D.O. Ordering Physician: Gigi Tafoya D.O. Date of Service: 01/21/23 Procedure(s): US breast LT limited Accession Number(s): [id number] cc: Gigi Tafoya D.O.; CHEN LUCIA Patient Name: KEYSHA GARDNER MR#: [id number] : 1995 Exam Date: 01/21/2023 Ordering Doctor: DR Gigi Tafoya . RADIOLOGY REPORT PROCEDURE: US BREAST LT LIMITED COMPARISON: None. INDICATIONS: procedure TECHNIQUE: Breast ultrasound was performed, with evaluation focusing only on specific areas of concern. FINDINGS: DIAGNOSTIC CATEGORY 3--PROBABLY BENIGN FINDING. THE FOLLOWING FINDING(S) HAS A HIGH PROBABILITY OF A BENIGN ETIOLOGY: LEFT BREAST: 5 still-images were presented for review and demonstrate aspiration of a small amount of contents from heterogeneous area within left breast 11 o'clock position suspected to represent an abscess. Aspiration was performed by Dr. Bernard. RECOMMENDATIONS: SHORT TERM FOLLOW-UP ULTRASOUND LEFT BREAST IN 2 MONTHS. Pathology results are pending. PLEASE NOTE: A NORMAL ULTRASOUND EXAMINATION DOES NOT EXCLUDE THE POSSIBILITY OF BREAST CANCER. A CLINICALLY SUSPICIOUS PALPABLE LUMP SHOULD BE BIOPSIED. Dictated by: Tri Berrios M.D. on 01/23/2023 at 10:09 Approved by: Tri Berrios M.D. on 01/23/2023 at 10:13 Dictated By: Tri Berrios M.D. Signed By: 01/23/23 1014 DD/ 1013 TD/TT: Clinical Research Management Associate: TERE [facility] HospitalRadiology Study observation (narrative)[facility] MoBeamUS BREAST LT LIMITEDOrdered By: Radiologist Radiology on 29-90-5947RYSO [employer] Work Phone: US Breast - lefton 96-10-2018[place], [place] [address] Ultrasound Report Signed Patient: KEYSHA GARDNER MR#: [id number] : 1995 Acct:[id number] Age/Sex: 27 / F ADM Date: Loc: [place] [address]: Gigi Tafoya D.O. Ordering Physician: Gigi Tafoya D.O. Date of Service: 01/20/23 Procedure(s): US breast LT complete Accession Number(s): [id number] cc: Gigi Tafoya D.O.; CHEN LUCIA Patient Name: KEYSHA GARDNER MR#: [id number] : 1995 Exam Date: 01/20/2023 Ordering Doctor: DR Gigi Tafoya . RADIOLOGY REPORT PROCEDURE: US BREAST LT COMPLETE COMPARISON: US BREAST LT LIMITED, 01/21/2023. INDICATIONS: mastitis of left breast x 10 days TECHNIQUE: Breast ultrasound was performed, with evaluation focusing only on specific areas of concern. FINDINGS: DIAGNOSTIC CATEGORY 3--PROBABLY BENIGN FINDING. THE FOLLOWING FINDING(S) HAS A HIGH PROBABILITY OF A BENIGN ETIOLOGY: LEFT BREAST: Lobular heterogeneous hypoechoic area within left breast, 11 o'clock, 5.7 x 3.5 x 6.0 cm with surrounding hypervascularity suggestive of an abscess. (Preliminary findings were provided on January 20, 2023) Partially circumscribed 2.0 cm nodule at the 2 o'clock position suspected to represent a fibroadenoma; follow-up ultrasound evaluation after resolution of mastitis/abscess is recommended. Benign-appearing 1.2 cm cyst at 4 o'clock position. RECOMMENDATIONS: SHORT TERM FOLLOW-UP ULTRASOUND LEFT BREAST IN 2 MONTHS. PLEASE NOTE: A NORMAL ULTRASOUND EXAMINATION DOES NOT EXCLUDE THE POSSIBILITY OF BREAST CANCER. A CLINICALLY SUSPICIOUS PALPABLE LUMP SHOULD BE BIOPSIED. Dictated by: Tri Berrios M.D. on 01/23/2023 at 09:45 Approved by: Tri Berrios M.D. on 01/23/2023 at 10:09 Dictated By: Tri Berrios M.D. Signed By: 01/23/23 1010 DD/ 1009 TD/TT: Clinical Research Management Associate:TBHRadiology, Radiologist, MD - 01/23/2023 [place] [address] Ultrasound Report Signed Patient: KEYSHA GARDNER MR#: [id number] : 1995 Acct:[id number] Age/Sex: 27 / F ADM Date: Loc: [facility] 252-[address]: Gigi Tafoya D.O. Ordering Physician: Gigi Tafoya D.O. Date of Service: 01/20/23 Procedure(s): US breast LT complete Accession Number(s): [id number] cc: Gigi Tafoya D.O.; CHEN LUCIA Patient Name: KEYSHA GARDNER MR#: [id number] : 1995 Exam Date: 01/20/2023 Ordering Doctor: DR Gigi Tafoya . RADIOLOGY REPORT PROCEDURE: US BREAST LT COMPLETE COMPARISON: US BREAST LT LIMITED, 01/21/2023. INDICATIONS: mastitis of left breast x 10 days TECHNIQUE: Breast ultrasound was performed, with evaluation focusing only on specific areas of concern. FINDINGS: DIAGNOSTIC CATEGORY 3--PROBABLY BENIGN FINDING. THE FOLLOWING FINDING(S) HAS A HIGH PROBABILITY OF A BENIGN ETIOLOGY: LEFT BREAST: Lobular heterogeneous hypoechoic area within left breast, 11 o'clock, 5.7 x 3.5 x 6.0 cm with surrounding hypervascularity suggestive of an abscess. (Preliminary findings were provided on January 20, 2023) Partially circumscribed 2.0 cm nodule at the 2 o'clock position suspected to represent a fibroadenoma; follow-up ultrasound evaluation after resolution of mastitis/abscess is recommended. Benign-appearing 1.2 cm cyst at 4 o'clock position. RECOMMENDATIONS: SHORT TERM FOLLOW-UP ULTRASOUND LEFT BREAST IN 2 MONTHS. PLEASE NOTE: A NORMAL ULTRASOUND EXAMINATION DOES NOT EXCLUDE THE POSSIBILITY OF BREAST CANCER. A CLINICALLY SUSPICIOUS PALPABLE LUMP SHOULD BE BIOPSIED. Dictated by: Tri Berrios M.D. on 01/23/2023 at 09:45 Approved by: Tri Berrios M.D. on 01/23/2023 at 10:09 Dictated By: Tri Berrios M.D. Signed By: 01/23/23 1010 DD/ 1009 TD/TT: Clinical Research Management Associate: TERE GaleasRadiology Study observation (narrative)TERE GaleasUS Breast - leftOrdered By: Radiologist Radiology on [id number] Work Phone: US OB BPP W NON-STRESSon [phone] [address] Ultrasound Report Signed Patient: KEYSHA GARDNER MR#: [id number] : 1995 Acct:[id number] Age/Sex: 27 / F ADM Date: 11/14/22 Loc: US Attending Dr: Gigi Tafoya D.O. Ordering Physician: Gigi Tafoya D.O. Date of Service: 11/14/22 Procedure(s): US OB BPP w non-stress Accession Number(s): [id number] cc: Giig Tafoya D.O.; CHEN LUCIA The [address] [address] Patient Name: KEYSHA GARDNER MRN: [id number] date: 1995 Sex: F Assigned Patient Location: [facility] Current Patient Location: US Accession/Order Number: [id number] Exam Date: 11/14/2022 18:01 Report Date: 11/15/2022 05:03 At the request of: GIGI TAFOYA Procedure: US OB BPP w non-stress [...] profile score: 8.0 Electronically authenticated by: RAFY GR Date: 11/15/2022 05:03 Dictated By: Rafy Gr M.D. Signed By: 11/15/22505 DD/ 2 TD/TT: Clinical Research Management Associate:AYDEEHRadiology, Radiologist, - 11/18/2022 [place] [address] Ultrasound Report Signed Patient: KEYSHA GARDNER MR#: [id number] : 1995 Acct:[id number] Age/Sex: 27 / F ADM Date: 11/14/22 Loc: US Attending Dr: Gigi Tafoya D.O. Ordering Physician: Gigi Tafoya D.O. Date of Service: 11/14/22 Procedure(s): US OB BPP w non-stress Accession Number(s): [id number] cc: Gigi Tafoya D.O.; CHEN LUCIA [address] [place] [address] Patient Name: KEYSHA GARDNER MRN: [id number] date: 1995 Sex: F Assigned Patient Location: [facility] Current Patient Location: US Accession/Order Number: [id number] Exam Date: 11/14/2022 18:01 Report Date: 11/15/2022 05:03 At the request of: GIGI TAFOYA Procedure: US OB BPP w non-stress [...] profile score: 8.0 Electronically authenticated by: RAFY GR Date: 11/15/2022 05:03 Dictated By: Rafy Gr M.D. Signed By: 11/15/22505 DD/ 2 TD/TT: Clinical Research Management Associate: TERE HealthcareRadiology Study observation (narrative)NOMS HealthcareUS OB BPP W NON-STRESSOrdered By: Radiologist Radiology on [id number] Work Phone: cNPKds [phone] (ENAGST) KEYSHA GARDNER ([id number]) 1995 F Date Time Provider Department 09/20/22 JOSE LEROY During your visit today, we recorded the following information about you: Jose Leroy MD 09/20/2022 4:37 PM Signed Virtual visit done today. Follow up: -Please help this patient get a follow-up appointment with me. -Please make that appointment for (around) 2 months. Mid- October - virtual visit (she [place] from [place]) -Type of appointment: 30 minute time slot. 15 min if that is the only available. -Reason for follow up appointment: follow up hypothyroidism in [place] Christina Patel Sharon A 09/21/2022 2:37 PM Signed Referral made and pt to call financial clearance to schedule in October virtual Kareen Vasquez September 21, 2022 2:37 PM Allergies As of Date: 09/20/2022 Noted Allergy Reaction SULFA (SULFONAMIDE ANTIBIOTICS) 08/20/2015 4 - Hives Date Reviewed: 09/20/2022 Reviewed by: Jose Leroy MD - Fully Assessed Reason for Visit: Future Appointment [256] Prescriptions as of 09/21/2022 - ondansetron orally disintegrating (ZOFRAN ODT) 4 mg disintegrating tablet Take 4 mg by mouth as needed. - levothyroxine (SYNTHROID) 175 mcg tablet Take 1 tablet by mouth once daily. - vit no.124/iron/folic ( VITAMIN ORAL) Take by mouth. - metoprolol tartrate, short acting, (LOPRESSOR) 25 mg tablet Take 25 mg by mouth as needed. - albuterol (PROVENTIL) 2.5 mg /3 mL (0.083 %) nebulizer solution Use 2.5 mg via nebulizer as needed. - albuterol HFA (PROVENTIL HFA, VENTOLIN HFA) 90 mcg/actuation inhaler Inhale 2 Puffs as instructed every 6 hours. 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 Reagan Starrsophils/100 WBC (Bld)0.4 %Normal0.2-2.0[facility] Comment on above:Performed By: #### HBSANS #### [facility] [address] [place] [address] Dr. Reagan Coles #0.1 103/ulNormal0.0-0.7The [facility] HospitalComment on above: Performed By: #### HBSANS #### [facility] [address] [place] [address] Dr. Reagan Connollyosinophils/100 WBC (Bld)0.6 %Critically low0.9-7.0The [facility] HospitalComment on above:Performed By: #### HBSANS #### [facility] [address] [place] [address] Dr. Reagan Connollyrythrocyte distribution width (RBC) [Ratio]11.9 %Focbza78.0-15.0 The [facility] HospitalComment on above:Performed By: #### HBSANS #### [facility] [address] [place] [address] Dr. Reagan MoffettHematocrit (Bld) [Volume fraction]39.5 %Hfszch22.0-48.0The [facility] HospitalComment on above:Performed By: #### HBSANS #### [facility] [address] [place] [address] Dr. Reagan MoffettHemoglobin (Bld) [Mass/Vol]13.5 g/oZCbwpke86.0-16.0The [facility] HospitalComment on above:Performed By: #### HBSANS #### [facility] [address] [place] [address] Dr. Reagan Yun #0.06 10e3/ulCritically high0.00-0.03The [facility] Comment on above:Performed By: #### HBSANS #### [facility] [address] [place] [address] Dr. Reagan Yun %0.4 %Normal0.0-0.5The [facility] HospitalComment on above: Performed By: #### HBSANS #### [facility] [address] [place] [address] Dr. Reagan Ramirez #2.2 103/ulNormal1.2-3.8The [facility] HospitalComment on above:Performed By: #### HBSANS #### [facility] [address] [place] [address] Dr. Reagan Robertsmphocytes/100 WBC (Bld)16.3 %Critically low20.5-60.0The [facility] HospitalComment on above:Performed By: #### HBSANS #### [facility] [address] [place] [address] Dr. Reagan Carrion DIFF REQNONormalThe [facility] HospitalComment on above: Performed By: #### HBSANS #### [facility] [address] [place] [address] Dr. Reagan Christina (RBC) [Entitic mass]30.1 vmZvkpox54.7-34.0The [facility] HospitalComment on above:Performed By: #### HBSANS #### [facility] [address] [place] [address] Dr. Reagan Christina (RBC) [Mass/Vol]34.2 g/xIGzsxtw95.9-35.2The [facility] HospitalComment on above:Performed By: #### HBSANS #### [facility] [address] [place] [address] Dr. Reagan Orr (RBC) [Entitic vol]88.2 dVGtydof11.0-99.0The [facility] HospitalComment on above:Performed By: #### HBSANS #### [facility] [address] [place] [address] Dr. Reagan Richey #0.8 103/ulNormal0.3-0.8The [facility] HospitalComment on above:Performed By: #### HBSANS #### [facility] [address] [place] [address] Dr. Reagan Benjaminocytes/100 WBC (Bld)6.2 %Normal1.7-12.0The [facility] Comment on above:Performed By: #### HBSANS #### [facility] [address] [place] [address] Dr. Reagan Canseco #10.2 103/ulCritically high1.4-6.5The [facility] Comment on above:Performed By: #### HBSANS #### [facility] [address] [place] [address] Dr. Reagan Warrenutrophils/100 WBC (Bld)76.1 %Critically high43.0-75.0The [facility] HospitalComment on above:Performed By: #### HBSANS #### [facility] [address] [place] [address] Dr. Reagan MoffettPlatelet mean volume (Bld) [Entitic vol]9.8 fLNormal9.5-13.5The [facility] HospitalComment on above:Performed By: #### HBSANS #### [facility] [address] [place] [address] Dr. Reagan MoffettPLT322 103/bcTtnaaj431-243Gtm [facility] HospitalComment on above: Performed By: #### HBSANS #### [facility] [address] [place] [address] Dr. Reagan MoffettRBC4.48 106/ulNormal4.20-5.40The [facility] HospitalComment on above:Performed By: #### HBSANS #### [facility] [address] [place] [address] Dr. Reagan MoffettWBC13.5 103/ulCritically high4.0-11.0The [facility] HospitalComment on above:Performed By: #### HBSANS #### [facility] [address] [place] [address] Dr. Reagan CrandallF 14(COMP METB)on 87-48-1332Qhmhivi [Mass/Vol]3.7 g/dLNormal 3.4-5.0The [facility] HospitalComment on above:Performed By: #### HBSANS #### [facility] [address] [place] [address] Dr. Reagan MoffettAlbumin/Globulin [Mass ratio]0.8 {ratio}NormalThe [facility] HospitalComment on above:Performed By: #### HBSANS #### [facility] [address] [address] [address] Reagan Osorio [Catalytic activity/Vol]79 U/VGlakdi50-073Wus [facility] HospitalComment on above:Performed By: #### HBSANS #### [facility] [address] [address] [address] Reagan RodriguezT [Catalytic activity/Vol]22 U/HAphdup04-05Ykb [facility] HospitalComment on above:Performed By: #### HBSANS #### [facility] [address] [address] [address] Reagan Leonon gap [Moles/Vol]14.7 mmol/LNormalThe [facility] Comment on above:Performed By: #### HBSANS #### [facility] [address] [address] [address] Reagan MoffettAST [Catalytic activity/Vol]14 U/LCritically nsi78-93Uai [facility] HospitalComment on above:Performed By: #### HBSANS #### [facility] [address] [address] [address] Reagan MoffettBilirubin [Mass/Vol]0.2 mg/dLNormal0.2-1.0The [facility] Comment on above:Performed By: #### HBSANS #### [facility] [address] [address] [address] Reagan MoffettCalcium [Mass/Vol]9.1 mg/dLNormal8.5-10.1The [facility] Comment on above:Performed By: #### HBSANS #### [facility] [address] [address] [address] Reagan MoffettChloride [Moles/Vol]100 mmol/FIblysh43-927Fcx [facility] Comment on above:Performed By: #### HBSANS #### [facility] [address] [address] [address] Reagan MoffettCO2 [Moles/Vol]24.5 mmol/WEihssp67.0-32.0The [facility] Comment on above:Performed By: #### HBSANS #### [facility] [address] [address] [address] Reagan MoffettCreatinine [Mass/Vol]0.60 mg/dLNormal0.55-1.02The [facility] HospitalComment on above:Performed By: #### HBSANS #### [facility] [address] [address] [address] Reagan ConnollyGFR-AF COSTA RICAN>60Normal>=60The [facility] HospitalComment on above:Performed By: #### HBSANS #### [facility] [address] [place] [address] Dr. Reagan ConnollyGFR-NON AF COSTA RICAN>60Normal>=60The [facility] HospitalComment on above:Performed By: #### HBSANS #### [facility] [address] [place] [address] Dr. Reagan MoffettGlobulin (S) [Mass/Vol]4.6 g/dLNormalThe [facility] HospitalComment on above:Performed By: #### HBSANS #### [facility] [address] [place] [address] Dr. Reagan MoffettGlucose [Mass/Vol]87 mg/zNSfwbar71-160EqkOhio State [facility] Comment on above:Performed By: #### HBSANS #### [facility] [address] [place] [address] Dr. Reagan MoffettPotassium [Moles/Vol]3.2 mmol/LCritically low3.5-5.1The [facility] HospitalComment on above:Performed By: #### HBSANS #### [facility] [address] [place] [address] Dr. Reagan MoffettProtein [Mass/Vol]8.3 g/dLCritically high6.4-8.2The [facility] HospitalComment on above:Performed By: #### HBSANS #### [facility] [address] [place] [address] Dr. Reagan MoffettSodium [Moles/Vol]136 mmol/LXvfdde328-973Otj [facility] Comment on above:Performed By: #### HBSANS #### [facility] [address] [place] [address] Dr. Reagan Olguin nitrogen [Mass/Vol]10.0 mg/dLNormal7.0-18.0The [facility] on above:Performed By: #### HBSANS #### [facility] [address] [place] [address] Dr. Raegan Olguin nitrogen/Creatinine [Mass ratio]16.7 mg/mgNormCleveland ClinicComment on above:Performed By: #### HBSANS #### [facility] [address] [place] [address] Dr. Reagan Valenzuela B SURFACE ANTIGEN SCREENon 81-94-1355KUtDz ScreenNegative NormalNegativeThe [facility] HospitalCommackinac straits hospital on above:Performed By: #### HBSANS #### [facility] [address] [place] [address] Dr. Reagan HinesTIS C VIRUS AB W/ REFLEX QUANTon 63-02-0229VSW AB Non-ReactiveNormalNon ReactiveThe [facility] HospitalComment on above:Performed By: #### PREGQNT #### [facility] [address] [place] [address] Dr. Reagan MoffettInterpretation:CommentAshtabula County Medical Center on above:Result Comment: Not infected with HCV unless early or acute infection is suspected (which may be delayed in an immunocompromised individual), or other evidence exists to indicate HCV infection.Performed By: #### PREGQNT #### [facility] [address] [place] [address] Dr. Reagan GloriaV 1 AND 2 WITH REFLEXon 56-61-0762FKL Screen 4th Generation wRfxNon-ReactiveNormalNon ReactiveThe [facility] on above:Result Comment: HIV Negative HIV-1/HIV-2 antibodies and HIV-1 p24 antigen were NOT detected. There is no laboratory evidence of HIV infection.Performed By: #### HIV12 #### [facility] [address] [place] [address] Dr. Reagan MoffettRPR QUANTon 46-46-3667Nwxvb Plasma Reagin, QuantNon-Reactive NormalNonRea<1:1[facility] on above:Result Comment: Please Note: This test does not meet current guidelines for screening and diagnosis of syphilis. This test is intended for following treatment response in patients being treated for syphilis infection. To screen for syphilis infection, a reflex cascade that includes both RPR and a treponema-specific assay should be utilized, such as Treponema pallidum (Syphilis) Screening [place] (071287) or Rapid Plasma Reagin (RPR) Test With Reflex to Quantitative RPR and Confirmatory Treponema pallidum Antibodies (395471).Performed By: #### PREGQNT #### [facility] [address] [place] [address] Dr. Reagan Manzano AB IGGon 77-62-6374Msxkphn Antibodies, IgG2.97 index NormalImmune >0.99The [facility] on above:Result Comment: Non- immune <0.90 Equivocal 0.90 - 0.99 Immune >0.99Performed By: #### PREGQNT #### [facility] [address] [place] [address] Dr. Reagan MoffettBOX TEST SENT OUTon 68-39-2637QPJU TO REF LAB06/10/22NoUniversity Hospitals Geneva Medical CenterCommackinac straits hospital on above:Performed By: #### BOX #### [facility] [address] [place] [address] Dr. Reagan Daniels AUTO DIFFon 16-57-3744LPAK #0.0 103/ulNormal0.0-0.1The [facility] HospitalComment on above:Performed By: #### CBC #### [facility] [address] [place] [address] Dr. Reagan MoffettBasophils/100 WBC (Bld)0.4 %Normal0.2-2.0The [facility] Comment on above:Performed By: #### CBC #### [facility] [address] [place] [address] Dr. Kirk ChangEDheeraj #0.1 103/ulNormal0.0-0.7The [facility] HospitalComment on above: Performed By: #### CBC #### [facility] [address] [address] [address] Reagan Connollyosinophils/100 WBC (Bld)0.7 %Critically low0.9-7.0The [facility] Centerment on above:Performed By: #### CBC #### [facility] [address] [address] [address] Reagan Connollyrythrocyte distribution width (RBC) [Ratio]11.9 %Fezlhv29.0-15.0 The [facility] HospitalComment on above:Performed By: #### CBC #### [facility] [address] [place] [address] Dr. Reagan MoffettHematocrit (Bld) [Volume fraction]38.7 %Syipri37.0-48.0The [facility] HospitalComment on above:Performed By: #### CBC #### [facility] [address] [place] [address] Dr. Reagan MoffettHemoglobin (Bld) [Mass/Vol]13.1 g/mDAufeet48.0-16.0The [facility] Centerment on above:Performed By: #### CBC #### [facility] [address] [place] [address] Dr. Reagan Yun #0.04 10e3/ulCritically high0.00-0.03The [facility] Comment on above:Performed By: #### CBC #### [facility] [address] [place] [address] Dr. Reagan Yun %0.4 %Normal0.0-0.5The [facility] Centerment on above: Performed By: #### CBC #### [facility] [address] [place] [address] Dr. Reagan ShannonH #2.1 103/ulNormal1.2-3.8The [facility] Centerment on above:Performed By: #### CBC #### [facility] [address] [place] [address] Dr. Reagan Robertsmphocytes/100 WBC (Bld)21.7 %Bughxw61.5-60.0The [facility] Centerment on above:Performed By: #### CBC #### [facility] [address] [address] [address] Reagan Carrion DIFF REQNONormalThe [facility] HospitalComment on above: Performed By: #### CBC #### [facility] [address] [place] [address] Dr. Reagan Christina (RBC) [Entitic mass]29.9 pvErmgtb58.7-34.0The [facility] HospitalComment on above:Performed By: #### CBC #### [facility] [address] [place] [address] Dr. Reagan Christina (RBC) [Mass/Vol]33.9 g/mDWbtfyg62.9-35.2The [facility] HospitalComment on above:Performed By: #### CBC #### [facility] [address] [place] [address] Dr. Reagan Christina (RBC) [Entitic vol]88.4 yMYgzktp62.0-99.0[facility] HospitalComment on above:Performed By: #### CBC #### [facility] [address] [place] [address] Dr. Reagan Richey #0.8 103/ulNormal0.3-0.8The [facility] Centerment on above:Performed By: #### CBC #### [facility] [address] [place] [address] Dr. Reagan Benjaminocytes/100 WBC (Bld)7.7 %Normal1.7-12.0[facility] Comment on above:Performed By: #### CBC #### [facility] [address] [address] [address] Reagan Canseco #6.7 103/ulCritically high1.4-6.5The [facility] Comment on above:Performed By: #### CBC #### [facility] [address] [place] [address] Dr. Reagan Warrenutrophils/100 WBC (Bld)69.1 %Pfsxlk25.0-75.0The [facility] on above:Performed By: #### CBC #### [facility] [address] [address] [address] Reagan Boatenglet mean volume (Bld) [Entitic vol]9.9 fLNormal9.5-13.5The [facility] HospitalCommackinac straits hospital on above:Performed By: #### CBC #### [facility] [address] [address] [address] Reagan MoffettPLT297 103/mcLvbmdh148-986Tkl [facility] HospitalCommackinac straits hospital on above: Performed By: #### CBC #### [facility] [address] [place] [address] Dr. Reagan MoffettRBC4.38 106/ulNormal4.20-5.40[facility] on above:Performed By: #### CBC #### [facility] [address] [place] [address] Dr. Reagan MoffettWBC9.8 103/ulNormal4.0-11.0The [facility] HospitalCommackinac straits hospital on above: Performed By: #### CBC #### [facility] [address] [place] [address] Dr. Reagan MoffettCULTJOEY URINEon 36-00-2894NABLOJX URINECulture Observations: NO GROWTH.NormalThe [facility] HospitalCommackinac straits hospital on above:Performed By: #### HBSANS #### [facility] [address] [place] [address] Dr. Reagan MoffettGLYCOHEMOGLOBIN A1Con 79-77-5688SFW RECOMMENDATIONSEE BELOWNormal The [facility] HospitalCommackinac straits hospital on above:Result Comment: ADA RECOMMENDED LIMIT 4.0 - 6.0 ADA THERAPEUTIC TARGET < 7.0 ACTION SUGGESTED > 7.0Performed By: #### PREGQNT #### [facility] [address] [place] [address] Dr. Reagan MoffettGlucose [Mass/Vol]88 mg/dLNoalThCleveland Clinic Mercy HospitalCommackinac straits hospital on above:Performed By: #### PREGQNT #### [facility] [address] [place] [address] Dr. Reagan MoffettHbA1c (Bld) [Mass fraction]4.7 %Normal4.5-6.2[facility] Hospitalment on above:Performed By: #### PREGQNT #### [facility] [address] [place] [address] Dr. Reagan MoffettTSHon 22-12-8531YSD4.950 uIU/mLNormal0.358-3.740The [facility] HospitalComment on above:Performed By: #### PREGQNT #### [facility] [address] [place] [address] Dr. Reagan MoffettTYPE AND SCREENon 39-08-9544CXPW AND SCREENNegativeNormalThe [facility] HospitalComment on above:Performed By: #### HBSANS #### [facility] [address] [place] [address] Dr. Reagan Cespedes URINE PROFILEon 59-64-0401Ytsnqfvgo Ql (U)NegativeNormal NEGATIVEThe [facility] HospitalComment on above:Performed By: #### WALDO ERUR #### [facility] [address] [place] [address] Dr. Reagan MoffettClarity (U)CLEARNormalCLEAROhio State Harding HospitalCommackinac straits hospital on above: Performed By: #### WALDO ERUR #### [facility] [address] [place] [address] Dr. Reagan Honeycuttlor (U)LT. YELLOWNormalYELLOWThe [facility] HospitalComment on above:Performed By: #### WALDO ERUR #### [facility] [address] [place] [address] Dr. Reagan Nelson micrscopic examination will be performed if indicated. NormalThe [facility] HospitalCommackinac straits hospital on above:Performed By: #### WALDO, ERUR #### [facility] [address] [place] [address] Dr. Reagan MoffettGlucose Ql (U)>1000AbnormalNEGATIVEThe [facility] HospitalComment on above:Performed By: #### WALDO, ERUR #### [facility] [address] [address] [address] Reagan MoffettHemoglobin Ql (U)NegativeNormalNEGMansfield Hospital Comment on above:Performed By: #### CHELA HASAR #### [facility] [address] [address] [address] Reagan MoffettKetones Ql (U)TRACEAbnormalNEGATIVEOhio State Harding HospitalComment on above:Performed By: #### WALDO ERUR #### [facility] [address] [place] [address] Dr. Reagan MoffettLEUKOCYTESTRACEAbnormalNEGATIVEOhio State Harding HospitalComment on above:Performed By: #### CHELA HAASR #### [facility] [address] [place] [address] Dr. Reagan MoffettNitrite Ql (U)NegativeNormalNEGATIVEOhio State Harding HospitalComment on above:Performed By: #### CHELA HAASR #### [facility] [address] [place] [address] Dr. Reagan MoffettpH (U)6.0 [pH]Normal5-9Ohio State Harding HospitalComment on above: Performed By: #### CHELA HAASR #### [facility] [address] [place] [address] Dr. Reagan MoffettSPEC GRAVITY>=1.762Mwuqeaqz1.005-<=1.025[facility] Comment on above:Performed By: #### CHELA HAASR #### [facility] [address] [place] [address] Dr. Reagan Cole PROTEINNegativeNormalNEGATIVE/ TRACEOhio State Harding Hospital Comment on above:Performed By: #### CHELA HAASR #### [facility] [address] [place] [address] Dr. Reagan Delvalle MICRO INDINDICATEDNoalThCleveland Clinic Mercy HospitalComment on above: Performed By: #### CHELA HAASR #### [facility] [address] [place] [address] Dr. Reagan Salvador Qn (U)0.2 {Abel'U}/dLNormal0.2 - 1.0The [facility] HospitalComment on above:Performed By: #### OSVALDO HAAS #### [facility] [address] [address] [address] Reagan MoffettPROF 14(COMP METB)on 85-68-6860Vhfvtfs [Mass/Vol]3.6 g/dLNormal 3.4-5.0The [facility] HospitalComment on above:Performed By: #### PREGQNT #### [facility] [address] [address] [address] Reagan MoffettAlbumin/Globulin [Mass ratio]0.8 {ratio}NormalThe [facility] HospitalComment on above:Performed By: #### PREGQNT #### [facility] [address] [place] [address] Dr. Reagan RodriguezP [Catalytic activity/Vol]66 U/SDzhwsn00-927Tun [facility] HospitalComment on above:Performed By: #### PREGQNT #### [facility] [address] [address] [address] Reagan Blackmon [Catalytic activity/Vol]25 U/HQdckid14-20Qit [facility] HospitalComment on above:Performed By: #### PREGQNT #### [facility] [address] [address] [address] Reagan Philip gap [Moles/Vol]10.5 mmol/LNormalThe [facility] Comment on above:Performed By: #### PREGQNT #### [facility] [address] [address] [address] Reagan MoffettAST [Catalytic activity/Vol]10 U/LCritically lit29-73Bso [facility] HospitalComment on above:Performed By: #### PREGQNT #### [facility] [address] [place] [address] Dr. Reagan Nunezirubin [Mass/Vol]0.3 mg/dLNormal0.2-1.0The [facility] Comment on above:Performed By: #### PREGQNT #### [facility] [address] [address] [address] Reagan MoffettCalcium [Mass/Vol]9.1 mg/dLNormal8.5-10.1The [facility] Comment on above:Performed By: #### PREGQNT #### [facility] [address] [address] [address] Reagan MoffettChloride [Moles/Vol]103 mmol/CKanedh26-471Jlk [facility] Comment on above:Performed By: #### PREGQNT #### [facility] [address] [address] [address] Reagan MoffettCO2 [Moles/Vol]26.0 mmol/RLedajw71.0-32.0The [facility] Comment on above:Performed By: #### PREGQNT #### [facility] [address] [address] [address] Reagan MoffettCreatinine [Mass/Vol]0.74 mg/dLNormal0.55-1.02Ohio [facility] Harding HospitalComment on above:Performed By: #### PREGQNT #### [facility] [address] [address] [address] Reagan ConnollyGFR-AF COSTA RICAN>60Normal>=60The [facility] HospitalComment on above:Performed By: #### PREGQNT #### [facility] [address] [address] [address] Reagan ConnollyGFR-NON AF COSTA RICAN>60Normal>=60The [facility] HospitalComment on above:Performed By: #### PREGQNT #### [facility] [address] [address] [address] Reagan MoffettGlobulin (S) [Mass/Vol]4.4 g/dLNormalThe [facility] HospitalComment on above:Performed By: #### PREGQNT #### [facility] [address] [address] [address] Reagan MoffettGlucose [Mass/Vol]92 mg/uQYgtbhf05-624Pwf [facility] Comment on above:Performed By: #### PREGQNT #### [facility] [address] [address] [address] Reagan MoffettPotassium [Moles/Vol]3.5 mmol/LNormal3.5-5.1The [facility] Comment on above:Performed By: #### PREGQNT #### [facility] [address] [address] [address] Reagan MoffettProtein [Mass/Vol]8.0 g/dLNormal6.4-8.2The [facility] Comment on above:Performed By: #### PREGQNT #### [facility] [address] [address] [address] Reagan Ceedium [Moles/Vol]136 mmol/OBbtiar970-140Wno [facility] Comment on above:Performed By: #### PREGQNT #### [facility] [address] [address] [address] Reagan MoffettUrea nitrogen [Mass/Vol]9.0 mg/dLNormal7.0-18.0[facility] Harding HospitalComment on above:Performed By: #### PREGQNT #### [facility] [address] [address] [address] Reagan Olguin nitrogen/Creatinine [Mass ratio]12.2 mg/mgNoUniversity Hospitals Geneva Medical CenterComment on above:Performed By: #### PREGQNT #### [facility] [address] [address] [address] Reagan López MICROSCOPIC ONLYon 46-67-3500YRDMXXHTVWGF SEENNormalNONE SEENOhio State Harding HospitalComment on above:Performed By: #### CHELA HAASR #### [facility] [address] [address] [address] Reagan Dejesus identified Cx Nom (U)NOT INDICATEDNoUniversity Hospitals Geneva Medical CenterComment on above:Performed By: #### WALDO ERUR #### [facility] [address] [address] [address] Reagan James SEENNormalNONE SEENOhio State Harding HospitalComment on above:Performed By: #### UMICRO, ERUR #### [facility] [address] [address] [address] Reagan MoffettCrystals LM Nom (Urine sed)NONE SEENNormalNONE SEENThe [facility] on above:Performed By: #### UMICRO, ERUR #### [facility] [address] [address] [address] Kirk ChangEpithelial cells LM Ql (Urine sed)MODERATEAbnormalNONE SEEN /RARE The [facility] HospitalCommackinac straits hospital on above:Performed By: #### UMICRO, ERUR #### [facility] [address] [address] [address] Reagan LionCOUSTRACEAbnormalNONE SEENMagruder Memorial Hospital on above:Performed By: #### WALDO, ERUR #### [facility] [address] [address] [address] Reagan MoffettZioesMLE9-0Zfecmlox7-1Tfr [facility] on above:Performed By: #### WALDO, ERUR #### [facility] [address] [address] [address] Reagan MoffettWBC2-5AbnormalNONE SEENMagruder Memorial Hospital on above: Performed By: #### ROLFRO, ERUR #### [facility] [address] [place] [address] Dr. Reagan MoffettUS PREG TVon [id number] PREG TVEXAMINATION: US PREG TV HISTORY: Missed period COMPARISON: No relevant comparison available. FINDINGS: GESTATIONAL SAC: Present and normal appearing. YOLK SAC: Present and normal appearing. POLE: Present and normal appearing. CARDIAC: Present. UTERUS: Normal size and appearance. OVARIES: Right: Normal. Left: Corpus lutein cyst CERVIX: 3.1 cm in length and closed. CUL-DE-SAC: Normal. OTHER: None. AGE BY LMP: 6 weeks 1 day GREG BY LMP: 01/09/2023 AGE BY US CRL: 6 weeks 0 days GREG BY US CRL: 01/10/2023 IMPRESSION: 1. Single live intrauterine . Electronically authenticated by: TRI BERRIOS Date: 2022-05-17 14:19[facility] HospitalOB/[facility] - Office Visiton [id number]/MIG WELDER - Office VisitPatient Discussion/Summary We discussed causes of infertility including hormonal, egg quality issues, structural problems suchas endometriosis, adhesions, or tubal problems, uterine factors such as polyps or fibroids, and sperm issues. Reviewed evaluation of such as well. We discussed methods for achieving in somedetail including superovulation and IVF. Discussed use of luteal phase progesterone. Micronized progesterone is an oral pill used vaginally to increase absorption to the uterus and decrease systemic side effects. It should be started 3 dayspost IUI, 4 days post + OPK, or 5 days post HCG trigger. A urine test should be taken approximately two weeks after ovulation, if + stay on the progesterone and call the office, if negative you must stop the progesterone or it can delay the onset of you menstrual cycle. We discussed potential etiologies for recurrent loss. We discussed that most miscarriagesare due to chromosomal abnormalities, such as aneuploidy, in the embryo, and that the majority of these are maternal in origin and are sporadic, although some may be paternal in origin. We discussed that most patients with recurrent loss will go on to have healthy pregnancies. We reviewedthe workup for recurrent loss, including laboratory testing and uterine cavity evaluation. We also recommend maternal and paternal karyotypes to evaluate for the presence of an unbalanced translocation. If any testing is abnormal we will address the cause. If all testing is normal, we can offer supportive care and early monitoring. We often used progesterone for luteal support, althoughthis treatment is empiric. PLAN *DEFER ALL TESTING FOR NOW PT IS CURRENTLY . *PT HAS APT WITH OBYGN FOR U/S AT 6 WGA, ALREADY ON VAGINAL PROGESTERONE PRECONCEPTION [ ] Genetic Screen patient or Waiver, offered screening to pt and partner, pt declined in office today, will discuss with OBGYN [X] Take vitamins, vitamin D 2000 IUs daily Follow up plan: Pt will continue care with OBGYN, if pt miscarries again will recommend RPL work up. pt aware if she miscarries will need FUV to discuss RPL testing. Provider Impressions 26 year old female, currently . Hx of 1 missed AB, Hx of PCOS, conceived on Letrozole 7.5 with TIC, on Metformin, on Synthroid for Hoshimotos. We discussed causes of infertility including hormonal, egg quality issues, structural problems suchas endometriosis, adhesions, or tubal problems, uterine factors such as polyps or fibroids, and sperm issues. Reviewed evaluation of such as well. We discussed methods for achieving in somedetail including superovulation and IVF. Discussed use of luteal phase progesterone. Micronized progesterone is an oral pill used vaginally to increase absorption to the uterus and decrease systemic side effects. It should be started 3 dayspost IUI, 4 days post + OPK, or 5 days post HCG trigger. A urine test should be taken approximately two weeks after ovulation, if + stay on the progesterone and call the office, if negative you must stop the progesterone or it can delay the onset of you menstrual cycle. We discussed potential etiologies for recurrent loss. We discussed that most miscarriagesare due to chromosomal abnormalities, such as aneuploidy, in the embryo, and that the majority of these are maternal in origin and are sporadic, although some may be paternal in origin. We discussed that most patients with recurrent loss will go on to have healthy pregnancies. We reviewedthe workup for recurrent loss, including laboratory testing and uterine cavity evaluation. We also recommend maternal and paternal karyotypes to evaluate for the presence of an unbalanced translocation. If any testing is abnormal we will address the cause. If all testing is normal, we can offer supportive care and early monitoring. We often used progesterone for luteal support, althoughthis treatment is empiric. PLAN *DEFER ALL TESTING FOR NOW PT IS CURRENTLY . *PT HAS APT WITH OBYGN FOR U/S AT 6 WGA, ALREADY ON VAGINAL PROGESTERONE PRECONCEPTION [ ] Genetic Screen patient or Waiver, offered screening to pt and partner, pt declined in office today, will discuss with OBGYN [X] Take vitamins, vitamin D 2000 IUs daily Follow up plan: Pt will continue care with OBGYN, if pt miscarries again will recommend RPL work up. pt aware if she miscarries will need FUV to discuss RPL testing. 45 minutes spent with pt with >50% time spent counseling/coordinating care Damari Sulilvan CNP 05/05/2022 12:59 Chief Complaint The patient is being seen today at the request of Dr. Gigi Tafoya for a New Patient Fertility Consultation. Adult Risk ScreeningThere are no spiritual/cultural practices/values/needs that are important to know Initial Fall Risk Screening: KEYSHA has not fallen in the last 6 months. KEYSHA does not (more content not included)...NormalUH TouchworksTobacco Screening.on 06-14-4153Nfad risk assessmenta) No falls within the last phcoZB-[id number]-Fjqfwn 320 Work Phone: Last menstrual period start [id number] 320 Work Phone: Tobacco use status CPHSb) TjXD-VCDSV-Qewppa 320 Work Phone: PAP ACOG PANEL 2: 21 to 29on 01-17-2022..NormalOhio State Harding HospitalComment on above:Performed By: #### PREGQNT #### [facility] [address] [place] [address] Dr. Reagan MoffettAge Gdln ACOG Durmnbj86-23KsbqobHfmUniversity Hospitals Geneva Medical CenterComment on above:Performed By: #### PREGQNT #### [facility] [address] [place] [address] Dr. Reagan MoffettDIAGNOSIS:CommentNoMadison Health on above: Result Comment: NEGATIVE FOR INTRAEPITHELIAL LESION OR MALIGNANCY.Performed By: #### PREGQNT #### [facility] [address] [place] [address] Dr. Reagan MoffettMethodology:CommentNoMadison Health on above: Result Comment: This liquid based ThinPrep(R) pap test was screened with the use of an image guided system.Performed By: #### PREGQNT #### [facility] [address] [place] [address] Dr. Reagan MoffettNote:CommentNoMadison Health on above:Result Comment: The Pap smear is a screening test designed to aid in the detection of premalignant and malignant conditions of the uterine cervix. It is not a diagnostic procedure and should not be used as the sole means of detecting cervical cancer. Both false-positive and false-negative reports do occur. .Performed By: #### PREGQNT #### [facility] [address] [address] [address] Reagan MoffettPerformed by:CommentAshtabula County Medical Center on above: Result Comment: Fredy Boyer, Hat Lacer (ASCP)Performed By: #### PREGQNT #### [facility] [address] [place] [address] Dr. Reagan MoffettReflex Criteria:CommentAshtabula County Medical Center on above:Result Comment: The HPV DNA reflex criteria were not met with this specimen result therefore, no HPV testing was performed. .Performed By: #### PREGQNT #### [facility] [address] [place] [address] Dr. Reagan MoffettSpecimen adequacy:CommentAshtabula County Medical Center on above:Result Comment: Satisfactory for evaluation. Endocervical and/or squamous metaplastic cells (endocervical component) are present.Performed By: #### PREGQNT #### [facility] [address] [place] [address] Dr. Reagan MoffettHCG,Quantitativeon [id number],Quantitative1.64 m[iU]/mLNUniversity Hospitals Health SystemComment on above:Result Comment: Approximate Approximate hCG Gestational Age Range (mIU/ml) (weeks) 0.2-1 5-50 1-2 50-500 2-3 100-5,000 3-4 500-10,000 4-5 1,000-50,000 5-6 10,000-100,000 6-8 15,000-200,000 8-12 10,000-100,000 PERFORMED BY: [place] [address] PATHOLOGIST [employer]TR[employer]IC HAND SOLDERER DONAL GRIMES M.D.Performed By: #### HCGQNT #### [place] [address] USASerum or plasma beta choriogonadotropin measurement (units/volume)Ordered By: Gigi Tafoya on [id number].beta subunit Qn1.64 m[IU]/mLRegency Hospital Cleveland WestComment on above:Approximate Approximate hCG Gestational Age Range (mIU/ml) (weeks) 0.2-1 5-50 1-2 50-500 2-3 100-5,000 3-4 500-10,000 4-5 1,000-50,000 5-6 10,000-100,000 6-8 15,000-200,000 8-12 10,000-100,000 Bacteria identified Aer cx Nom (Unsp spec)Ordered By: Vandana Zhao on [id number] Wound CultureStaphylococcus aureusRegency Hospital Cleveland WestHCG,Quantitativeon [id number],Quantitative7.29 m[iU]/mLNormal [facility] WestComment on above:Result Comment: Approximate Approximate hCG Gestational Age Range (mIU/ml) (weeks) 0.2-1 5-50 1-2 50-500 2-3 100-5,000 3-4 500-10,000 4-5 1,000-50,000 5-6 10,000-100,000 6-8 15,000-200,000 8-12 10,000-100,000 PERFORMED BY: [place] [address] PATHOLOGIST ULTR[employer]IC HAND SOLDERER DONAL GRIMES M.D.Performed By: #### HCGQNT #### [place] [address] USASerum or plasma beta choriogonadotropin measurement (units/volume)Ordered By: Gigi Tafoya on [id number].beta subunit Qn7.29 m[IU]/mLRegency Hospital Cleveland WestComment on above:Approximate Approximate hCG Gestational Age Range (mIU/ml) (weeks) 0.2-1 5-50 1-2 50-500 2-3 100-5,000 3-4 500-10,000 4-5 1,000-50,000 5-6 10,000-100,000 6-8 15,000-200,000 8-12 10,000-100,000 Superficial Wound Cultureon [id number] Wound CultureORGANISM: Staphylococcus aureus (O:STAAUR) Quantity of Growth Heavy Growth Aerobic TRENT Charge (PC45) SUSCEPTIBILITY ORGANISM: O:STAAUR ANTIBIOTIC INTERPRETATION TRENT Amoxacillin/K Clavulanate S <4/2 Ampicillin SO >8 Ampicillin/Sulbactam S <8/4 Azithromycin S <2 Cefazolin S <8 Ceftaroline S <0.5 Ceftriaxone S <8 Ciprofloxacin S <1 Clindamycin S <0.5 Daptomycin S <1 Erythromycin S <0.25 Levofloxacin S <1 Linezolid S 4 Meropenem S <4 Oxacillin S 0.5 Penicillin SO >8 Piperacillin/Tazobactam S <4 Rifampin S <1 Tetracycline S <4 Trimethoprim/Sulfamethoxazole S <0.5/9.5 Vancomycin S 1 S = SUSCEPTIBLE I = INTERMEDIATE R = RESISTANT BLANK = DATA NOT AVAILABLE, OR DRUG NOT ADVISABLE OR TESTED R* = RESISTANCE DUE TO EXTENDED SPECTRUM BETA-LACTAMASES ESBL = EXTENDED SPECTRUM BETA-LACTAMASE TFG = THYMIDINE-DEPENDENT STRAIN SO = BETA-LACTAMASE POSITIVE IB = INDUCIBLE BETA-LACTAMASE. APPEARS IN PLACE OF 'S' WITH SPECIES KNOWN TO POSSESS INDUCIBLE BETA-LACTAMASES. POTENTIALLY THEY MAY BECOME RESISTANT TO ALL B-LACTAM DRUGS. PERFORMED BY: [place] [address] PATHOLOGIST ULTRASONIC HAND SOLDERER DONAL GRIMES M.D.Corey HospitalComment on above: Performed By: #### CUSUP #### [place] [address] USAHCG,Quantitativeon [id number],Ifjaakgtrmte66.06 m[iU]/mLNMercy Health Defiance HospitalComment on above:Result Comment: Approximate Approximate hCG Gestational Age Range (mIU/ml) (weeks) 0.2-1 5-50 1-2 50-500 2-3 100-5,000 3-4 500-10,000 4-5 1,000-50,000 5-6 10,000-100,000 6-8 15,000-200,000 8-12 10,000-100,000 PERFORMED BY: [place] [address] PATHOLOGIST ULTRASONIC HAND SOLDERER DONAL GRIMES M.D.Performed By: #### TSH3, HCGQNT #### [facility] [address] [place] [address] USASerum or plasma beta choriogonadotropin measurement (units/volume)Ordered By: Gigi Tafoya on [id number].beta subunit Qn56.06 m[IU]/mLRegency Hospital Cleveland WestComment on above:Approximate Approximate hCG Gestational Age Range (mIU/ml) (weeks) 0.2-1 5-50 1-2 50-500 2-3 100-5,000 3-4 500-10,000 4-5 1,000-50,000 5-6 10,000-100,000 6-8 15,000-200,000 8-12 10,000-100,000 TSH DL <= 0.005 mIU/L QnOrdered By: Gigi Tafoya on [id number] Qn10.30 m[IU]/L 0.45-5.33Reg[facility] Hospital Cleveland WestThyroid Stimulating Hormoneon [id number] Qn10.30 m[IU]/LHigh0.45-5.33[facility] Comment on above:Performed By: #### TSH3, HCGQNT #### [facility] [address] [place] [address] USACBC AUTO DIFFon [id number] #0.0 103/ulNormal0.0-0.1The [facility] HospitalComment on above:Performed By: #### CBC #### [facility] [address] [address] [address] Reagan Youngphils/100 WBC (Bld)0.4 %Normal0.2-2.0The [facility] Comment on above:Performed By: #### CBC #### [facility] [address] [address] [address] Reagan Coles #0.1 103/ulNormal0.0-0.7The [facility] HospitalComment on above: Performed By: #### CBC #### [facility] [address] [place] [address] Dr. Reagan Connollyosinophils/100 WBC (Bld)1.2 %Normal0.9-7.0The [facility] on above:Performed By: #### CBC #### [facility] [address] [place] [address] Dr. Reagan Connollyrythrocyte distribution width (RBC) [Ratio]12.2 %Mbelqt05.0-15.0 The [facility] HospitalComment on above:Performed By: #### CBC #### [facility] [address] [place] [address] Dr. Reagan MoffettHematocrit (Bld) [Volume fraction]40.1 %Nvqbhd42.0-48.0The [facility] HospitalComment on above:Performed By: #### CBC #### [facility] [address] [place] [address] Dr. Reagan MoffettHemoglobin (Bld) [Mass/Vol]13.4 g/tBFlgxww12.0-16.0The [facility] HospitalComment on above:Performed By: #### CBC #### [facility] [address] [place] [address] Dr. Reagan Yun #0.03 10e3/ulNormal0.00-0.03The [facility] HospitalComment on above:Performed By: #### CBC #### [facility] [address] [place] [address] Dr. Reagan Yun %0.3 %Normal0.0-0.5The [facility] HospitalComment on above: Performed By: #### CBC #### [facility] [address] [place] [address] Dr. Reagan Ramirez #2.7 103/ulNormal1.2-3.8The [facility] HospitalComment on above:Performed By: #### CBC #### [facility] [address] [place] [address] Dr. Yilan ChangLymphocytes/100 WBC (Bld)26.2 %Iinfun87.5-60.0The [facility] HospitalComment on above:Performed By: #### CBC #### [facility] [address] [place] [address] Dr. Reagan Carrion DIFF REQNONormalThe [facility] HospitalComment on above: Performed By: #### CBC #### [facility] [address] [place] [address] Dr. Reagan Christina (RBC) [Entitic mass]28.9 qrRximim69.7-34.0The [facility] HospitalComment on above:Performed By: #### CBC #### [facility] [address] [place] [address] Dr. Reagan Christina (RBC) [Mass/Vol]33.4 g/rOByksft79.9-35.2The [facility] HospitalComment on above:Performed By: #### CBC #### [facility] [address] [place] [address] Dr. Reagan Christina (RBC) [Entitic vol]86.6 sOLqwbqh90.0-99.0The [facility] HospitalComment on above:Performed By: #### CBC #### [facility] [address] [place] [address] Dr. Reagan Richey #0.8 103/ulNormal0.3-0.8The [facility] HospitalComment on above:Performed By: #### CBC #### [facility] [address] [place] [address] Dr. Reagan Benjaminocytes/100 WBC (Bld)7.7 %Normal1.7-12.0[facility] Comment on above:Performed By: #### CBC #### [facility] [address] [place] [address] Dr. Reagan Canseco #6.7 103/ulCritically high1.4-6.5The [facility] Comment on above:Performed By: #### CBC #### [facility] [address] [place] [address] Dr. Yilan ChangNeutrophils/100 WBC (Bld)64.2 %Sklvda21.0-75.0The [facility] Health Centerment on above:Performed By: #### CBC #### [facility] [address] [place] [address] Dr. Reagan Boatenglet mean volume (Bld) [Entitic vol]9.9 fLNormal9.5-13.5The [facility] HospitalComment on above:Performed By: #### CBC #### [facility] [address] [place] [address] Dr. Reagan MoffettPLT270 103/kmZkpozr511-991Xdi [facility] on above: Performed By: #### CBC #### [facility] [address] [place] [address] Dr. Reagan MoffettRBC4.63 106/ulNormal4.20-5.40The [facility] on above:Performed By: #### CBC #### [facility] [address] [place] [address] Dr. Reagan MoffettWBC10.4 103/ulNormal4.0-11.0The [facility] on above:Performed By: #### CBC #### [facility] [address] [place] [address] Dr. Raegan Garcia 14(COMP METB)on [id number] [Mass/Vol]4.0 g/dLNormal 3.4-5.0The [facility] on above:Performed By: #### PREGQNT #### [facility] [address] [place] [address] Dr. Reagan MoffettAlbumin/Globulin [Mass ratio]1.1 {ratio}NormalThe [facility] HospitalCommackinac straits hospital on above:Performed By: #### PREGQNT #### [facility] [address] [place] [address] Dr. Reagan RodriguezP [Catalytic activity/Vol]72 U/ILrqvhq56-090Ugh [facility] on above:Performed By: #### PREGQNT #### [facility] [address] [address] [address] Reagan RodriguezT [Catalytic activity/Vol]14 U/KGfndro53-38Wfp [facility] HospitalComment on above:Performed By: #### PREGQNT #### [facility] [address] [place] [address] Dr. Reagan MoffettAnion gap [Moles/Vol]12.8 mmol/LNormalOhio State Harding Hospital Comment on above:Performed By: #### PREGQNT #### [facility] [address] [place] [address] Dr. Reagan MoffettAST [Catalytic activity/Vol]10 U/LCritically rgs82-41Xmd [facility] HospitalComment on above:Performed By: #### PREGQNT #### [facility] [address] [place] [address] Dr. Reagan MoffettBilirubin [Mass/Vol]0.3 mg/dLNormal0.2-1.0[facility] Comment on above:Performed By: #### PREGQNT #### [facility] [address] [place] [address] Dr. Reagan MoffettCalcium [Mass/Vol]9.2 mg/dLNormal8.5-10.1[facility] Comment on above:Performed By: #### PREGQNT #### [facility] [address] [place] [address] Dr. Reagan MoffettChloride [Moles/Vol]105 mmol/LZjdsjl42-765Kfl [facility] Comment on above:Performed By: #### PREGQNT #### [facility] [address] [place] [address] Dr. Reagan MoffettCO2 [Moles/Vol]26.8 mmol/XAlghbm32.0-32.0The [facility] Comment on above:Performed By: #### PREGQNT #### [facility] [address] [place] [address] Dr. Reagan MoffettCreatinine [Mass/Vol]0.69 mg/dLNormal0.55-1.02The [facility] HospitalComment on above:Performed By: #### PREGQNT #### [facility] [address] [address] [address] Reagan ConnollyGFR-AF COSTA RICAN>60Normal>=60The [facility] HospitalComment on above:Performed By: #### PREGQNT #### [facility] [address] [address] [address] Reagan ConnollyGFR-NON AF COSTA RICAN>60Normal>=60The [facility] HospitalComment on above:Performed By: #### PREGQNT #### [facility] [address] [address] [address] Reagan MoffettGlobulin (S) [Mass/Vol]3.6 g/dLNormalThe [facility] HospitalComment on above:Performed By: #### PREGQNT #### [facility] [address] [address] [address] Reagan MoffettGlucose [Mass/Vol]95 mg/lVZoaxpz04-103SgnOhio State Harding Hospital Comment on above:Performed By: #### PREGQNT #### [facility] [address] [address] [address] Reagan MoffettPotassium [Moles/Vol]3.6 mmol/LNormal3.5-5.1[facility] Comment on above:Performed By: #### PREGQNT #### [facility] [address] [address] [address] Reagan MoffettProtein [Mass/Vol]7.6 g/dLNormal6.4-8.2[facility] Comment on above:Performed By: #### PREGQNT #### [facility] [address] [address] [address] Reagan MoffettSodium [Moles/Vol]141 mmol/BIxsbrb686-984UvvOhio State Harding Hospital Comment on above:Performed By: #### PREGQNT #### [facility] [address] [address] [address] Reagan MoffettUrea nitrogen [Mass/Vol]12.0 mg/dLNormal7.0-18.0The [facility] HospitalComment on above:Performed By: #### PREGQNT #### [facility] [address] [place] [address] Dr. Reagan MoffettUrea nitrogen/Creatinine [Mass ratio]17.4 mg/mgNoUniversity Hospitals Geneva Medical CenterComment on above:Performed By: #### PREGQNT #### [facility] [address] [place] [address] Dr. Reagan MoffettPROTIMEon 63-63-7484AUZ Coag (PPP) [Relative time]0.99 {INR} NormalOhio State Harding HospitalComment on above:Performed By: #### HBSANS #### [facility] [address] [place] [address] Dr. Reagan Sanchez GUIDELINESSEE [facility] Anne HospitalComment on above:Result Comment: DESIRED INR: 2.0 - 3.0 CONDITIONS NOT LISTED BELOW 2.5 - 3.5 FOR PROSTHETIC HEART VALVE REPLACEMENT 2.5 - 3.5 RECURRENT THROMBOSIS Performed By: #### HBSANS #### [facility] [address] [place] [address] Dr. Reagan MoffettPT Coag (PPP) [Time]10.7 sNormal9.0-11.6The [facility] Comment on above:Performed By: #### HBSANS #### [facility] [address] [place] [address] Dr. Reagan FriasTon 71-50-9505lZJL Coag (Bld) [Time]27.1 zJvmtqp27.3-36.2[facility] HospitalComment on above:Performed By: #### HBSANS #### [facility] [address] [place] [address] Dr. Reagan MoffettTYPE AND SCREENon 63-60-4776ZOHY AND SCREENNegativeJ.W. Ruby Memorial HospitalComment on above:Performed By: #### TNS #### [facility] [address] [place] [address] Dr. Reagan MoffettUS PREG TVon [id number] PREG TVEXAM: US PREG TV CLINICAL HISTORY: 26 years old Female presenting with vaginal bleeding/clots. COMPARISON: 09/28/2021 TECHNIQUE: Transvaginal real-time grayscale and color Doppler imaging with pulsed duplex sonography was performed. FINDINGS: UTERUS: Not enlarged ENDOMETRIUM: Previously seen presumed gestational sac is no longer seen identified. Mildly heterogeneous measuring 1.3 centimeters in thickness. Not hypervascular. OVARIES: Right ovary was not visualized. Left ovary measures 2.5 by 1.6 by 3.2 cm. And demonstrates an unremarkable appearance MISCELLANEOUS: No significant free fluid. IMPRESSION: Previously seen presumed gestational sac is no longer identified. The endometrium is mildly heterogeneous measuring 1.2 centimeters in thickness, not hypervascular. These findings are concerning for spontaneous . Follow-up imaging and/or serial beta hCG can be considered as clinically warranted. Unremarkable left ovary. Right ovary was not visualized. Electronically authenticated by: ERNST PALACIO Date: 2021-10-03 21:40NormCleveland ClinicABO AND RH TYPEon 95-77-3509DSE and Rh group Nom (Bld)ABO Rh Typing B Rh PositiveNoUniversity Hospitals Geneva Medical CenterComment on above:Performed By: #### HBSANS #### [facility] [address] [place] [address] Dr. Reagan Daniels AUTO DIFFon 08-09-0059DLPQ #0.0 103/ulNormal0.0-0.1The [facility] HospitalComment on above:Performed By: #### CBC #### [facility] [address] [place] [address] Dr. Reagan MoffettBasophils/100 WBC (Bld)0.4 %Normal0.2-2.0The [facility] Comment on above:Performed By: #### CBC #### [facility] [address] [place] [address] Dr. Reagan Coles #0.1 103/ulNormal0.0-0.7The [facility] HospitalComment on above: Performed By: #### CBC #### [facility] [address] [place] [address] Dr. Reagan Connollyosinophils/100 WBC (Bld)0.6 %Critically low0.9-7.0The [facility] HospitalComment on above:Performed By: #### CBC #### [facility] [address] [place] [address] Dr. Reagan Connollyrythrocyte distribution width (RBC) [Ratio]11.9 %Edliel59.0-15.0 The [facility] HospitalComment on above:Performed By: #### CBC #### [facility] [address] [place] [address] Dr. Reagan MoffettHematocrit (Bld) [Volume fraction]37.8 %Szoohq20.0-48.0The [facility] HospitalComment on above:Performed By: #### CBC #### [facility] [address] [place] [address] Dr. Reagan MoffettHemoglobin (Bld) [Mass/Vol]12.8 g/oUSxrczm00.0-16.0The [facility] HospitalComment on above:Performed By: #### CBC #### [facility] [address] [place] [address] Dr. Reagan Yun #0.01 10e3/ulNormal0.00-0.03The [facility] HospitalCommackinac straits hospital on above:Performed By: #### CBC #### [facility] [address] [place] [address] Dr. Reagan Yun %0.1 %Normal0.0-0.5The [facility] on above: Performed By: #### CBC #### [facility] [address] [place] [address] Dr. Reagan ShannonH #2.0 103/ulNormal1.2-3.8The [facility] HospitalComment on above:Performed By: #### CBC #### [facility] [address] [place] [address] Dr. Reagan Robertsmphocytes/100 WBC (Bld)24.4 %Aydkmt63.5-60.0The [facility] on above:Performed By: #### CBC #### [facility] [address] [place] [address] Dr. Reagan NullUAL DIFF REQNONormalThe [facility] HospitalComment on above: Performed By: #### CBC #### [facility] [address] [address] [address] Reagan Christina (RBC) [Entitic mass]29.2 rjNntweh89.7-34.0The [facility] HospitalComment on above:Performed By: #### CBC #### [facility] [address] [place] [address] Dr. Reagan Christina (RBC) [Mass/Vol]33.9 g/oRKyaxeg55.9-35.2The [facility] HospitalComment on above:Performed By: #### CBC #### [facility] [address] [place] [address] Dr. Reagan Christina (RBC) [Entitic vol]86.3 xPHrkrxl06.0-99.0The [facility] HospitalComment on above:Performed By: #### CBC #### [facility] [address] [place] [address] Dr. Reagan Richey #0.7 103/ulNormal0.3-0.8The [facility] HospitalComment on above:Performed By: #### CBC #### [facility] [address] [place] [address] Dr. Reagan Benjaminocytes/100 WBC (Bld)9.1 %Normal1.7-12.0The [facility] Comment on above:Performed By: #### CBC #### [facility] [address] [place] [address] Dr. Reagan Canseco #5.3 103/ulNormal1.4-6.5The [facility] HospitalComment on above:Performed By: #### CBC #### [facility] [address] [place] [address] Dr. Reagan Warrenutrophils/100 WBC (Bld)65.4 %Oniguq23.0-75.0The [facility] HospitalComment on above:Performed By: #### CBC #### [facility] [address] [place] [address] Dr. Reagan Boatenglet mean volume (Bld) [Entitic vol]9.9 fLNormal9.5-13.5The [facility] HospitalComment on above:Performed By: #### CBC #### [facility] [address] [address] [address] Reagan MoffettPLT280 103/dxXeyvwv296-899Ghh [facility] HospitalCommackinac stra[facility] hospital on above: Performed By: #### CBC #### [facility] [address] [address] [address] Reagan MoffettRBC4.38 106/ulNormal4.20-5.40The [facility] HospitalComment on above:Performed By: #### CBC #### [facility] [address] [address] [address] Reagan MoffettWBC8.1 103/ulNormal4.0-11.0The [facility] HospitalCommackinac straits hospital on above: Performed By: #### CBC #### [facility] [address] [place] [address] Dr. Reagan Cespedes URINE PROFILEon 34-45-2636Ryavywmri Ql (U)NegativeNormal NEGATIVEOhio State Harding HospitalCommackinac straits hospital on above:Performed By: #### PREGQNT #### [facility] [address] [place] [address] Dr. Reagan Martínez (U)CLEARNormalCLEAROhio State Harding HospitalCommackinac straits hospital on above: Performed By: #### PREGQNT #### [facility] [address] [place] [address] Dr. Reagan Muhammad (U)LT. YELLOWNormalYELLOWOhio State Harding HospitalCommackinac straits hospital on above:Performed By: #### PREGQNT #### [facility] [address] [place] [address] Dr. Reagan Nelson micrscopic examination will be performed if indicated. NormalThe [facility] HospitalCommackinac straits hospital on above:Performed By: #### PREGQNT #### [facility] [address] [place] [address] Dr. Reagan Camachoose Ql (U)NegativeNormalNEGATIVEThe [facility] HospitalCommackinac straits hospital on above:Performed By: #### PREGQNT #### [facility] [address] [address] [address] Reagan MoffettHemoglobin Ql (U)LARGEAbnormalNEGATIVEOhio State Harding Hospital Comment on above:Performed By: #### PREGQNT #### [facility] [address] [place] [address] Dr. Reagan MoffettKetones Ql (U)NegativeNormalNEGATIVEThe [facility] HospitalComment on above:Performed By: #### PREGQNT #### [facility] [address] [address] [address] Reagan MoffettLEUKOCYTESNegativeNormalNEGATIVEOhio State Harding HospitalComment on above:Performed By: #### PREGQNT #### [facility] [address] [place] [address] Dr. Reagan MoffettNitrite Ql (U)NegativeNormalNEGATIVEOhio State Harding HospitalComment on above:Performed By: #### PREGQNT #### [facility] [address] [place] [address] Dr. Reagan MoffettpH (U)6.0 [pH]Normal5-9Ohio State Harding HospitalComment on above: Performed By: #### PREGQNT #### [facility] [address] [place] [address] Dr. Reagan MoffettSPEC GRAVITY>=1.666Zpfigzpp4.005-<=1.025[facility] Comment on above:Performed By: #### PREGQNT #### [facility] [address] [place] [address] Dr. Reagan Cole PROTEINNegativeNormalNEGATIVE/ TRACEOhio State Harding Hospital Comment on above:Performed By: #### PREGQNT #### [facility] [address] [place] [address] Dr. Reagan Delvalle MICRO INDINDICATEDNoalThCleveland Clinic Mercy HospitalComment on above: Performed By: #### PREGQNT #### [facility] [address] [place] [address] Dr. Reagan MoffettUrobilinogen Qn (U)0.2 {Abel'U}/dLNormal0.2 - 1.0The [facility]y HospitalComment on above:Performed By: #### PREGQNT #### [facility] [address] [place] [address] Dr. Reagan Yeboah,Quantitativeon 19-15-0479AFI,Wlgtkpamylyc2882.00 m[iU]/mL [facility] HospitalComment on above:Result Comment: Approximate Approximate hCG Gestational Age Range (mIU/ml) (weeks) 0.2-1 5-50 1-2 50-500 2-3 100-5,000 3-4 500-10,000 4-5 1,000-50,000 5-6 10,000-100,000 6-8 15,000-200,000 8-12 10,000-100,000 PERFORMED BY: [place] [address] PATHOLOGIST ULTR[employer]ONIC HAND SOLDERER DONAL GRIMES M.D.Performed By: #### HCGQNT #### [id number] USAPREG QUANT HCGon 80-50-5556NJU OENDV3100 mIU/mLNAkron Children's HospitalComment on above:Performed By: #### PREGQNT #### [facility] [address] [place] [address] Dr. Reagan Yeboah [facility] Geneva Medical CenterComment on above: Result Comment: 5-50 0.2-1 WEEK 50-500 1-2 WEEKS 100-5,000 2-3 WEEKS 500-10,000 3-4 WEEKS 1,000-50,000 4-5 WEEKS 10,000-100,000 5-6 WEEKS 15,000-200,000 6-8 WEEKS 10,000-100,000 2-3 MONTHSPerformed By: #### PREGQNT #### [facility] [address] [place] [address] Dr. Reagan Bunch Comment: TEST PERFORMED AT: [facility] [address] [place], [place] [address]Serum or plasma beta choriogonadotropin measurement (units/volume)Ordered By: Radha Jensen on 31-04-3251PIE.beta subunit Qt8830.00 m[IU]/mLRegency Hospital Cleveland West Comment on above:Approximate Approximate hCG Gestational Age Range (mIU/ml) (weeks) 0.2-1 5-50 1-2 50-500 2-3 100-5,000 3-4 500-10,000 4-5 1,000-50,000 5-6 10,000-100,000 6-8 15,000-200,000 8-12 10,000-100,000 URINE MICROSCOPIC ONLYon 35-43-8576DNMZCPHOFBYVXXtqaknwgAQHB SEENOhio State Harding HospitalComment on above:Performed By: #### PREGQNT #### [facility] [address] [address] [address] Reagan Dejesus identified Cx Nom (U)NOT INDICATEDNoalThCleveland Clinic Mercy HospitalComment on above:Performed By: #### PREGQNT #### [facility] [address] [place] [address] Dr. Reagan James SEENNormalNONE SEENOhio State Harding HospitalCommackinac straits hospital on above:Performed By: #### PREGQNT #### [facility] [address] [address] [address] Reagan Haile LM Nom (Urine sed)NONE SEENNormalNONE SEENOhio State Harding HospitalCommackinac straits hospital on above:Performed By: #### PREGQNT #### [facility] [address] [place] [address] Dr. Kirk ChangEpithelial cells LM Ql (Urine sed)FEWAbnormalNONE SEEN /RAREThe [facility] HospitalComment on above:Performed By: #### PREGQNT #### [facility] [address] [address] [address] Reagan HernandezACEAbnormalNONE SEENOhio State Harding HospitalCommackinac straits hospital on above:Performed By: #### PREGQNT #### [facility] [address] [place] [address] Dr. Reagan ClarkTpgrhXXZ27-40Oawjgqol4-3Ygj [facility] HospitalComment on above: Performed By: #### PREGQNT #### [facility] [address] [address] [address] Reagan MoffettWBC0-2AbnormalROBERTAE Wexner Medical CenterComment on above: Performed By: #### PREGQNT #### [facility] [id number] Reagan Perkins PREG TVon 20-50-3716FE PREG TVEXAMINATION: US PREG TV HISTORY: Vaginal bleeding complicating early COMPARISON: No relevant comparison available. FINDINGS: GESTATIONAL SAC: Present and normal appearing. POLE: Absent YOLK SAC: Absent CARDIAC: Absent UTERUS: Thickened endometrium, 18 mm. OVARIES: Right: Not seen. Left: Corpus lutein cyst. CERVIX: 3.9 cm in length and closed. CUL-DE-SAC: Normal. OTHER: None. AGE BY LMP: 5 weeks, 6 days GREG BY LMP: 05/25/2022 AGE BY US CRL: Not applicable GREG BY US CRL: IMPRESSION: 1. Small fluid collection within endometrial cavity suspected to represent a gestational sac; early versus blighted ovum. 2. Right ovary could not be identified. No suspicious right adnexal findings. Electronically authenticated by: TRI BERRIOS Date: 2021-09-28 18:50NoUniversity Hospitals Geneva Medical CenterHCG,Quantitativeon 39-04-7182CVW,Wnlrljfzrzkm0926.00 m[iU]/mL [facility] HospitalComment on above:Result Comment: Approximate Approximate hCG Gestational Age Range (mIU/ml) (weeks) 0.2-1 5-50 1-2 50-500 2-3 100-5,000 3-4 500-10,000 4-5 1,000-50,000 5-6 10,000-100,000 6-8 15,000-200,000 8-12 10,000-100,000 PERFORMED BY: [address] [place] [address] PATHOLOGIST ULTRASONIC HAND SOLDERER DONAL GRIMES M.D.Performed By: #### HCGQNT #### [address] [id number] USASerum or plasma beta choriogonadotropin measurement (units/volume)Ordered By: Chen Lucia on 61-22-4099LVJ.beta subunit Co1261.00 m[IU]/mLRegency Hospital Cleveland WestComment on above:Approximate Approximate hCG Gestational Age Range (mIU/ml) (weeks) 0.2-1 5-50 1-2 50-500 2-3 100-5,000 3-4 500-10,000 4-5 1,000-50,000 5-6 10,000-100,000 6-8 15,000-200,000 8-12 10,000-100,000 CHEMISTRYOrdered By: SYSTEM SYSTEM on 12-06-9007Ibdkvkf [Mass/Vol]4.6 g/dLNormal 3.3 - 5.0 gm/dLFTMC RemisolAlbumin/Globulin [Mass ratio]1.4 {ratio}Normal1.1 - 2.2[facility] RemisolALP [Catalytic activity/Vol]55 [iU]/pQueonf89 - 98 Int._Unit/L [facility] RemisolALT No additional P-5'-P [Catalytic activity/Vol]14 [iU]/dNormal6 - 46 Int._Unit/LFTMC RemisolAnion gap [Moles/Vol]10 mmol/LNormal6 - 16 mEq/LFTMC RemisolAST [Catalytic activity/Vol]14 [iU]/dNormal5 - 43 Int._Unit/LFTMC Remisol Bilirubin [Mass/Vol]0.8 mg/dLNormal0.0 - 1.1 mg/dLFTMC RemisolCalcium [Mass/Vol] 9.7 mg/dLNormal8.9 - 11.1 mg/dLFTMC RemisolChloride [Moles/Vol]102 mmol/LNormal 101 - 111 mmol/LFTMC RemisolCO2 [Moles/Vol]27 mmol/XVfwhjq45 - 31 mmol/LFTMC RemisolCreatinine [Mass/Vol]0.6 mg/dLNormal0.5 - 1.3 mg/dLFTMC RemisolGFR/1.73 sq M.predicted among blacks MDRD (S/P/Bld) [Vol rate/Area]mL/min/1.73 a7Ptefnl >=59mL/min/1.73 m2[facility] Chem SGFR/1.73 sq M.predicted among non-blacks MDRD (S/P/Bld) [Vol rate/Area]mL/min/1.73 d4Prdgyo>=59mL/min/1.73 m2[facility] Chem S Globulin (S) [Mass/Vol]3.2 g/dLNormal1.4 - 4.0 gm/dLFTMC RemisolGlucose [Mass/Vol]89 mg/hVRnaqqw28 - 199 mg/dLFTMC RemisolHCG.beta subunit Ck1108 m[IU]/mLHigh1 - 3 mIU/mLFTMC RemisolPotassium [Moles/Vol]3.8 mmol/LNormal3.5 - 5.3 mmol/LFTMC RemisolProtein [Mass/Vol]7.8 g/dLNormal6.0 - 7.8 gm/dLFTMC RemisolSodium [Moles/Vol]135 mmol/NTwkeoq675 - 145 mmol/LFTMC RemisolUrea nitrogen [Mass/Vol]12 mg/dLNormal5 - 21 mg/dLFTMC RemisolUrea nitrogen/Creatinine [Mass ratio]20 mg/ujJerfmr58 - 20FT[facility] RemisolHEMATOLOGY Ordered By: SYSTEM SYSTEM on 63-17-9867Ezurenhtp/100 WBC (Bld)0.6 %Normal0.0 - 2.0 %[facility] HemeAutoSSBasophils/Leukocytes Auto (Bld) [Pure # fraction]0.0 E9/L Normal0.0 - 0.2 E9/LFTMC HemeAutoSSEosinophils/100 WBC (Bld)0.6 %Normal0.0 - 8.0 %[facility] HemeAutoSSEosinophils/Leukocytes Auto (Bld) [Pure # fraction]0.0 E9/L Normal0.0 - 0.5 E9/LFTMC HemeAutoSSLymphocytes/100 WBC (Bld)33.0 %Cjngcl60.0 - 50.0 %[facility] HemeAutoSSLymphocytes/Leukocytes Auto (Bld) [Pure # fraction]2.0 E9/L Normal1.0 - 4.0 E9/LFTMC HemeAutoSSMonocytes/100 WBC (Bld)10.6 %Normal4.0 - 14.0 %[facility] HemeAutoSSMonocytes/Leukocytes Auto (Bld) [Pure # fraction]0.6 E9/LNormal 0.2 - 1.0 E9/LFTMC HemeAutoSSNeutrophils/100 WBC (Bld)55.2 %Gojwgl95.0 - 75.0 % [facility] HemeAutoSSNeutrophils/Leukocytes Auto (Bld) [Pure # fraction]3.3 E9/LNormal 2.0 - 7.5 E9/LFTMC HemeAutoSSHEMATOLOGYOrdered By: Winter Cedillo on 09-22-2021 Erythrocyte distribution width (RBC) [Ratio]12.3 %Nycleo29.9 - 14.2 %FT HemeAutoSSHematocrit (Bld) [Volume fraction]40.0 %Brthhg85.0 - 46.0 %FT HemeAutoSSHemoglobin (Bld) [Mass/Vol]13.7 g/bZCsbqmj92.0 - 16.0 gm/dLFT HemeAutoSSMCH (RBC) [Entitic mass]29.4 nwNeckmf47.0 - 34.0 pgFTMC HemeAutoSSMCHC (RBC) [Mass/Vol]34.3 g/vPFhhjqr74.4 - 36.0 gm/dLFTMC HemeAutoSSMCV (RBC) [Entitic vol]85.8 fVHxewog74.0 - 100.0 fLFT HemeAutoSSPlatelet mean volume (Bld) [Entitic vol]8.9 fLNormal6.4 - 10.8 fLFTMC HemeAutoSSPlatelets (Bld) [#/Vol]296.0 E9/DPujjgx523.0 - 500.0 E9/LFTMC HemeAutoSSRBC (Bld) [#/Vol]4.7 E12/LNormal4.3 - 5.9 E12/LFTMC HemeAutoSSWBC corrected for nucl RBC Auto (Bld) [#/Vol]6.0 E9/LNormal4.0 - 11.0 E9/LFTMC HemeAutoSSSEROLOGYOrdered By: Abby Sierra on 21-68-2642Wuio hCG QlPositive (09/22/21 10:50 AM)NormalFT Man SeroURINALYSISOrdered By: Abby Case on 00-49-3728Fhrqmzwql Ql (U)Negative (09/22/21 10:50 AM)NormalNegativeH[facility] UA Auto SSClarity (U)Clear (09/22/21 10:50 AM)NormalClearFMEMORIAL [facility] UA Auto SSColor (U)Yellow (09/22/21 10:50 AM)NormalYellowHARPER COUNTY COMM[facility]ITY [facility] UA Auto SSCrystals LM Ql (Urine sed)Present (09/22/21 10:50 AM)NormalHARPER COUNTY COMM[facility] UA Auto SSEpithelial cells.squamous LM.HPF (Urine sed) [#/Area]0-2 /HPFNormal0-2/HPFHARPER COUNTY [facility] UA Auto SSGlucose Test strip (U) [Mass/Vol]Negative (09/22/21 10:50 AM)NormalNegativeHARPER [facility] UA Auto SSHemoglobin Ql (U)2+ *ABN* (09/22/21 10:50 AM)Invalid Interpretation CodeNegativeH[facility]PER [facility] UA Auto SSKetones (U) [Mass/Vol]Negative (09/22/21 10:50 AM)NormalNegativeHAR[facility] UA Auto SSLithium.plasma/[place].RBC (Bld) [Mass ratio]0-3 /HPFNormal0-3/HPFHARPER COUNTY [facility] UA Auto SSMucus Ql (Urine sed)2+ (09/22/21 10:50 AM)NormalHARPER COUNTY COMM[facility]ITY [facility] UA Auto SSNitrite Ql (U)Negative (09/22/21 10:50 AM)NormalNegativeHARPER [facility] UA Auto SSpH (U)6.0 *NA* (09/22/21 10:50 AM)Invalid Interpretation Code5.0 - 9.0[facility] UA Auto SSProtein (U) [Mass/Vol]Negative (09/22/21 10:50 AM)NormalNegativeHARPER [facility] UA Auto SSSpecific gravity (U) [Rel density]1.025 *NA* (09/22/21 10:50 AM)Invalid Interpretation Code1.005 - 1.030[facility] UA Auto SSUA Spec DescClean Catch (09/22/21 10:50 AM)NormalHARPER COUNTY COMM[facility]ITY [facility] UA Auto SSUrobilinogen Qn (U)0.9608687 {Abel'U}/dLNormal0.0 - 1.0 EU/dLHARPER COUNTY COMM[facility]ITY [facility] UA Auto SSWBC Auto Ql (U)Negative (09/22/21 10:50 AM)NormalNegativeHARPER [facility] UA Auto SSWBC LM.HPF (Urine sed) [#/Area]0- 5 /HPFNormal0-5/HPFHARPER [facility] UA Auto SSProgesteroneon 30-00-7358Zpajfjttcksi79.9 ng/mLNormal.[facility] WestComment on above:Result Comment: Follicular phase 0.1 - 0.9 Luteal phase 1.8 - 23.9 Ovulation phase 0.1 - 12.0 First trimester 11.0 - 44.3 Second trimester 25.4 - 83.3 Third trimester 58.7 - 214.0 Postmenopausal 0.0 - 0.1 Performed at: [facility] [id number] Eyeletter: Matias Irene PhD, Phone: [phone] PERFORMED BY: [place] [address] PATHOLOGIST ULTRASONIC HAND SOLDERER DONAL GRIMES M.D.Performed By: #### HCGQNT #### [place] [address] USASerum or plasma progesterone measurement (mass/volume) Ordered By: Gigi Tafoya on 81-89-8602Hnfzhoumasbi [Mass/Vol]10.9 ng/mLRegency Hospital Cleveland WestComment on above:Follicular phase 0.1 - 0.9 Luteal phase 1.8 - 23.9 Ovulation phase 0.1 - 12.0 First trimester 11.0 - 44.3 Second trimester 25.4 - 83.3 Third trimester 58.7 - 214.0 Postmenopausal 0.0 - 0.1 Performed at: [facility] [id number] Eyeletter: Matias Irene PhD, Phone: [phone] DL <= 0.005 mIU/L Qn Ordered By: Gigi Tafoya on 47-13-1834WDJ Qn0.01 m[IU]/L0.45-5.33[facility] WestThyroid Stimulating Hormoneon 40-03-9762TSX Qn0.01 m[IU]/LLow0.45-5.33[facility] WestComment on above:Result Comment: PERFORMED BY: [place] [address] PATHOLOGIST ULTRASONIC HAND SOLDERER DONAL GRIMES M.D.Performed By: #### HCGQNT #### [place] [address] USACoagulation Profileon 67-73-2401nINR Coag (Bld) [Time]38.7 sHigh25.1-36.5FMercy Health St. Elizabeth [facility]stown HospitalComment on above:Result Comment: PERFORMED BY: [place] [address] PATHOLOGIST ULTRASONIC HAND SOLDERER DONAL GRIMES M.D.Performed By: #### T4F, CBC, PP, TSH3, HCGQNT, FSH #### [place] [address] [place] #### DHEAS, LH, DHEA #### [facility] ,INR Coag (PPP) [Relative time]1.1 {INR}[facility] Comment on above:Result Comment: INR Therapeutic Range A) Pre- and Peroperative OAT started two weeks before surgery. NOT HIP SURGERY: 1.5 - 2.5 HIP SURGERY: 2 - 3 B) Primary and secondary prevention of venous THROMBOSIS: 2 - 3 C) Active venous thrombosis, pulmonary embolism and prevention of recurrent venous thrombosis: 2 - 3 D) Prevention of arterial thromboembolism including patients with mechanical heart valves: 3 - 4.5Performed By: #### T4F, CBC, PP, TSH3, HCGQNT, FSH #### [place] [address] [place] #### DHEAS, LH, DHEA #### [facility] ,PT Coag (PPP) [Time]12.6 sNormal9.0-12.9[facility] Comment on above:Performed By: #### T4F, CBC, PP, TSH3, HCGQNT, FSH #### [address] [address] [place] #### DHEAS, LH, DHEA #### [facility] ,Complete Blood Count Auto Diffon 90-81-8754Iyltigcms (Bld) [#/Vol]0.1 10*3/uL Normal0.0-0.2FMercy Health St. Elizabeth Youngstown HospitalComment on above:Result Comment: PERFORMED BY: [place] [address] PATHOLOGIST ULTRASONIC HAND SOLDERER DONAL GRIMES M.D.Performed By: #### T4F, CBC, PP, TSH3, HCGQNT, FSH #### [address] #### DHEAS, LH, DHEA #### [facility] ,Basophils/100 WBC (Bld)0.8 %Normal.[facility] WestComment on above:Performed By: #### T4F, CBC, PP, TSH3, HCGQNT, FSH #### [address] #### DHEAS, LH, DHEA #### [facility] ,Eosinophils (Bld) [#/Vol]0.0 10*3/uLNormal0.0-0.45[facility] WestComment on above:Performed By: #### T4F, CBC, PP, TSH3, HCGQNT, FSH #### [address] #### DHEAS, LH, DHEA #### [facility] ,Eosinophils/100 WBC (Bld)0.7 %Normal.[facility] WestComment on above:Performed By: #### T4F, CBC, PP, TSH3, HCGQNT, FSH #### [address] #### DHEAS, LH, DHEA #### [facility] ,Erythrocyte distribution width (RBC) [Ratio]12.2 %Ahdpho45.9-15.3FMercy Health St. Elizabeth Youngstown HospitalComment on above:Performed By: #### T4F, CBC, PP, TSH3, HCGQNT, FSH #### [facility] [address] [place] [address] #### DHEAS, LH, DHEA #### [facility] ,Hematocrit (Bld) [Volume fraction]40.2 %Ihbmos55.0-46.4FMercy Health St. Elizabeth Youngstown HospitalComment on above:Performed By: #### T4F, CBC, PP, TSH3, HCGQNT, FSH #### [address] #### DHEAS, LH, DHEA #### [facility] ,Hemoglobin (Bld) [Mass/Vol]13.5 g/eDLubkqx55.8-15.4FMercy Health St. Elizabeth Youngstown HospitalComment on above:Performed By: #### T4F, CBC, PP, TSH3, HCGQNT, FSH #### [address] #### DHEAS, LH, DHEA #### [facility] ,Lymphocytes (Bld) [#/Vol]1.6 10*3/uLNormal1.00-4.8[facility] WestComment on above:Performed By: #### T4F, CBC, PP, TSH3, HCGQNT, FSH #### [address] #### DHEAS, LH, DHEA #### [facility] ,Lymphocytes/100 WBC (Bld)24.5 %Normal.[facility] WestComment on above:Performed By: #### T4F, CBC, PP, TSH3, HCGQNT, FSH #### [address] #### DHEAS, LH, DHEA #### [facility] ,MCH (RBC) [Entitic mass]29.7 woVumoqt45.7-34.3FMercy Health St. [facility] Hospital Comment on above:Performed By: #### T4F, CBC, PP, TSH3, HCGQNT, FSH #### [facility] [address] [place] [address] [place] #### DHEAS, LH, DHEA #### [facility] ,MCV (RBC) [Entitic vol]88.7 yLFkkhri14-548WrhwxtlxyRegency Hospital [facility] West Comment on above:Performed By: #### T4F, CBC, PP, TSH3, HCGQNT, FSH #### [address] #### DHEAS, LH, DHEA #### [facility] ,Mean Corpuscular HGB Conc33.5 g/cVYgxlpo89.0-35.0[facility] WestComment on above:Performed By: #### T4F, CBC, PP, TSH3, HCGQNT, FSH #### [facility] [address] [place] [address] #### DHEAS, LH, DHEA #### [facility] ,Monocytes (Bld) [#/Vol]0.7 10*3/uLNormal0.0-0.8[facility] WestComment on above:Performed By: #### T4F, CBC, PP, TSH3, HCGQNT, FSH #### [facility] [address] [place] [address] #### DHEAS, LH, DHEA #### [facility] ,Monocytes/100 WBC (Bld)10.8 %Normal.[facility] WestComment on above:Performed By: #### T4F, CBC, PP, TSH3, HCGQNT, FSH #### [facility] [address] [place] [address] [place] #### DHEAS, LH, DHEA #### [facility] ,Neutrophils (Bld) [#/Vol]4.3 10*3/uLNormal1.8-7.7FMercy Health St. Elizabeth Youngstown HospitalComment on above:Performed By: #### T4F, CBC, PP, TSH3, HCGQNT, FSH #### [facility] [address] [place] [address] [place] #### DHEAS, LH, DHEA #### [facility] ,Neutrophils/100 WBC (Bld)63.2 %Normal.[facility] WestComment on above:Performed By: #### T4F, CBC, PP, TSH3, HCGQNT, FSH #### [address] #### DHEAS, LH, DHEA #### [facility] ,Nucleated RBC/100 WBC (Bld) [Ratio]0.1 %Normal0-0.5FMercy Health St. Elizabeth Youngstown HospitalComment on above:Performed By: #### T4F, CBC, PP, TSH3, HCGQNT, FSH #### [address] #### DHEAS, LH, DHEA #### [facility] ,Platelet mean volume (Bld) [Entitic vol]8.3 fLNormal6.3-10.7FMercy Health St. Elizabeth Youngstown HospitalComment on above:Performed By: #### T4F, CBC, PP, TSH3, HCGQNT, FSH #### [address] #### DHEAS, LH, DHEA #### [facility] ,Platelets (Bld) [#/Vol]274 10*3/fLRgdzkv377-733QygdkzcwoRegency Hospital Cleveland WestComment on above:Performed By: #### T4F, CBC, PP, TSH3, HCGQNT, FSH #### [place] [address] [place] #### DHEAS, LH, DHEA #### [facility] ,RBC (Bld) [#/Vol]4.54 10*6/uLNormal3.60-5.00[facility] Comment on above:Performed By: #### T4F, CBC, PP, TSH3, HCGQNT, FSH #### [facility] [address] [place] [address] #### DHEAS, LH, DHEA #### [facility] ,WBC (Bld) [#/Vol]6.7 10*3/uLNormal4.5-11.0[facility] Comment on above:Performed By: #### T4F, CBC, PP, TSH3, HCGQNT, FSH #### [facility] [address] [place] [address] #### DHEAS, LH, DHEA #### [facility] ,Dehydroepandrosteroneon 71-24-9734ZDOO797 ng/pUPlccgg07-486CuiesfegdRegency Hospital Cleveland WestComment on above:Result Comment: This test was developed and its performance characteristics determined by [facility]. It has not been cleared or approved by the Food and Drug Administration. Age 1 - 5 years 0 - 67 6 - 7 years 0 - 110 8 - 10 years 0 - 185 11 - 12 years 0 - 201 13 - 14 years 0 - 318 15 - 16 years 39 - 481 17 - 19 years 40 - 491 >19 years 31 - 701 Performed at: [address] [id number] Eyeletter: Micah Angelo MD, Phone: [phone] PERFORMED BY: [place] [address] PATHOLOGIST ULTRASONIC HAND SOLDERER DONAL GRIMES M.D.Performed By: #### HCGQNT #### [place] [id number] USADehydroepiandrosterone Sulfateon 02-25-2021 Dehydroepiandrosterone Beixlai626.0 ug/aWVmtofj16.8-378.0[facility] WestComment on above:Performed By: #### HCGQNT #### [place] [address] USAFollicle Stimulating Hormoneon 08-51-2413Bylhkyzb Stimulating Hormone4.3 m[iU]/mLNormalRegency Hospital Cleveland WestComment on above:Result Comment: FEMALE NORMALS (PREMENOPAUSE) MID-FOLLICULAR PHASE: 3.9-8.8 mIU/mL MID-CYCLE PEAK: 4.5-22.5 mIU/mL MID-LUTEAL PHASE: 1.8-5.1 mIU/mL FEMALE NORMALS (POSTMENOPAUSE): 16.7-113.6 mIU/mL MALE NORMALS: 1.3-19.3 mIU/mLPerformed By: #### HCGQNT #### [place] [address] USAFree T4 (Free Thyroxine)on 05-33-0695Bund T4 [Mass/Vol] 1.66 ng/dLHigh0.61-1.12[facility] WestComment on above: Performed By: #### T4F, CBC, PP, TSH3, HCGQNT, FSH #### [facility] [address] [place] [address] [place] #### DHEAS, LH, DHEA #### [facility] ,HCG,Quantitativeon 19-56-6381YGH,Quantitative< 0.60NormalRegency Hospital Cleveland WestComment on above:Result Comment: Approximate Approximate hCG Gestational Age Range (mIU/ml) (weeks) 0.2-1 5-50 1-2 50-500 2-3 100-5,000 3-4 500-10,000 4-5 1,000-50,000 5-6 10,000-100,000 6-8 15,000-200,000 8-12 10,000-100,000 PERFORMED BY: [place] [address] PATHOLOGIST ULTRASONIC HAND SOLDERER DONAL GRIMES M.D.Performed By: #### HCGQNT #### [place] [id number] USALuteinizing Hormoneon 19-99-7188Priwifeeqnr Hormone4.4 m[iU]/mLNormal.[facility] WestComment on above:Result Comment: Adult Female: Follicular phase 2.4 - 12.6 Ovulation phase 14.0 - 95.6 Luteal phase 1.0 - 11.4 Postmenopausal 7.7 - 58.5 Performed at: [address] [id number] Eyeletter: Matias Irene PhD, Phone: [phone] By: #### HCGQNT #### [address] [address] USAThyroid Stimulating Hormoneon 44-82-0263JBL Qn0.25 m[IU]/L Low0.45-5.33[facility] WestComment on above:Performed By: #### HCGQNT #### [address] [address] USAUS transvaginalon 49-86-5663SI transvaginalEAST [facility]PO[facility] [place] [address] [place], [place] [id number] Ultrasound Report Signed Patient: Keysha Gardner MR#: [id number] 3 : 1995 Acct:[id number] Age/Sex: 25 / F ADM Date: 02/25/21 Loc: Room: Type: [facility] Attending Dr: Gigi Tafoya Ordering Provider: Gigi Tafoya Date of Service: 02/25/21 US/US pelvic complete: N92.6 ([id number]) US/US transvaginal: N92.6 Copies to: Gigi Tafoya TRANSABDOMINAL AND TRANSVAGINAL PELVIC ULTRASOUND HISTORY: Short menses. FINDINGS: The uterus measures8.3 x 3.6 x 5.4 cm. No uterine lesion identified. The endometrium has a total combined thickness of 12mm. The RIGHT ovary measures 4.5 x 1.7 x 1.7 cm LEFT ovary measures 2.2 x 2.8 x 1.8 cm Bilateral ovarian blood flow identified. No free fluid identified. There is no adnexal mass identified. US/US pelvic complete IMPRESSION:Normal transabdominal and transvaginal pelvic ultrasound Impression dictated by: Mitchell Butts M.D.02/25/2021 3:04 PM Dictation Location: [facility]11 Tech: [facility] Transcribed By: LOKESH 02/25/21 1504 Dictated By: Mitchell Butts DO 02/25/21 1503 Signed By: 02/25/21 1504Corey HospitalXR FOOT RIGHT 3+ VIEWS (STANDARD)on 02-90-1303RN oblique lateral: No obvious foreign body appreciated. No gas in tissue no cortical loss. Mild forefoot edema present. RISOhioHealthRadiology Study observation (narrative)[facility] - WestXR FOOT RIGHT 3+ VIEWS (STANDARD)AP oblique lateral: No obvious foreign body appreciated. No gas in tissue no cortical loss. Mild forefoot edema present. Dictated by: JUAN R BHAGAT on MonOct 15, 2020 4:31:18 PM EDT Transcribed by: JUA NR BHAGAT on MonOct 15, 2020 4:31:18 PM EDT Finalized by: JUAN R BHAGAT on Kaylynn Oct 15, 2020 4:31:18 PM EDTSt. Mary's Medical Center AmbulatoryComment on above:Order Comment: Injury/Trauma or Illness?:Illness/Other How long have you had these symptoms (acute/chronic)?:Acute Reason for exam?:Possible foreign body right foot under 3rd toe History of cancer?:u Surgeries, chemotherapy, or radiation?:u Type of Exam?:Subsequent/Follow-up Additional signs and symptoms?:redness and swllingSkin prepOrdered By: Juan R Bhagat on 48-49-8498Qcvmnir for I&D.Grant HospitalioHealthQuantiFERON TBon 38-17-8496Dfszhv Jomar minus NIL7.65 IU/mLNormalFayette County Memorial Hospital Comment on above:Performed By: #### VZI #### [facility] [address] [place] [address] Eyeletter: Jc Alvarado MD #### AQF #### [facility] [address] [place] [address] Eyeletter: Fernando Davis MDQuanti TB Gold PlusNegativeNormalNegativeFayette County Memorial HospitalComment on above:Result Comment: (NOTE) Interpretive Data: Quantiferon TB Gold Plus Interferon gamma release is measured for specimens from each of the four collection tubes. A qualitative result (Negative, Positive, or Indeterminate) is based on interpretation of the four values, NIL, MITOGEN minus NIL (MITOGEN-NIL), TB1 minus NIL (TB1-NIL), and TB2 minus NIL (TB2-NIL). The NIL value represents nonspecific reactivity produced by the patient specimen. The MITOGEN-NIL value serves as the positive control for the patient specimen, demonstrating successful lymphocyte activity. The TB1-NIL tube specifically detects CD4+ lymphocyte reactivity, specifically stimulated by the TB1 antigens. The TB2-NIL tube detects both CD4+ and CD8+ lymphocyte reactivity, stimulated by TB2 antigens. An overall Negative result does not completely rule out TB infection. A false-positive result in the absence of other clinical evidence of TB infection is not uncommon. Refer to: Updated Guidelines for Using Interferon Gamma Release Assays to Detect Mycobacterium tuberculosis Infection --- [place], 2010 (http://www.cdc.gov/mmwr/preview/mmwrhtml/zj6075t8.htm), for more information concerning test performance in low-prevalence populations and use in occupational screening.Performed By: #### VZI #### [facility] [address] [place] [address] Eyeletter: Jc Alvarado MD #### AQF #### [address] [address] Eyeletter: [place] TB1 minus NIL0.00 IU/mLNormal0.00-0.34 [facility] HospitalComment on above:Performed By: #### VZI #### [facility]) [address] [place], [place] [id number] Eyeletter: Jc Alvarado MD #### AQF #### [facility] [address] [place] [address] Eyeletter: [place] TB2 minus NIL0.00 IU/mLNormal0.00-0.34 [facility] Medical CenterComment on above:Performed By: #### VZI #### [address] [id number] Eyeletter: Jc Alvarado MD #### AQF #### [address] [id number] Eyeletter: Fernando Davis MDQuantiFERON NIL0.04 IU/mLNormalFayette County Memorial HospitalComment on above:Result Comment: (NOTE) Performed By: [address] [address] Gem Expert: María Verdin MDPerformed By: #### VZI #### [place] [id number] Eyeletter: Jc Alvarado MD #### AQF #### [address] [id number] Eyeletter: Fernando Davis MDVZ Immunityon 69-95-0996FR Immunity2.31Normal >1.09[facility] HospitalComment on above:Result Comment: Interpretation: IMMUNE Reference Range: <0.91 Not Immune 0.91-1.09 Equivocal >1.09 ImmunePerformed By: #### VZI #### [address] [id number] Eyeletter: Jc Alvarado MD #### AQF #### [address] [id number] Eyeletter: RAUL [place]RI Brain w/wo Contraston 37-69-8718YU Brain WO and W contrast IVInterpreted by: GERONIMO KATZ12/04/19 14:55MRN: [id number] Name: KEYSHA GARDNER STUDY:MRI BRAIN W/WO CONTRAST; 12/04/2019 2:19 pm INDICATION:worsening headaches, tremor. COMPARISON:None. ORDERING CLINICIAN:LORE GARDINER TECHNIQUE:Axial T2, FLAIR, DWI, gradient echo T2 and T1 weighted images ofbrain were acquired. Post contrast T1 weighted images were acquiredafter administration of 13 milliliter MULTIHANCE (GADOBENATEDIMEGLUMINE) gadolinium based intravenous contrast. FINDINGS:CSF Spaces: The ventricles, sulci and basal cisterns are withinnormal limits. Parenchyma: There is no diffusion restriction abnormality to suggestacute infarct. There is no focal parenchymal signal abnormality.There is no mass effect or midline shift. There is no abnormalparenchymal enhancement. Paranasal Sinuses and Mastoids: There is a retention cyst or polypalong the floor of the left maxillary sinus. There is another withinthe anteromedial right sphenoid sinus. There is partial opacificationof a posterior ethmoid air cell on the right and minimal mucosalthickening within the inferior right maxillary sinus. The mastoid aircells are clear. IMPRESSION:No evidence of acute infarct, intracranial mass effect or midlineshift.Electronically signed by: GERONIMO KATZ 12/04/19 14:55[facility] Work Phone: nr MRI BRAIN W/WO CONTRASTon [id number] MRI BRAIN W/WO CONTRASTMRN: [id number] Patient Name: KEYSHA GARDNER STUDY: MRI BRAIN W/WO CONTRAST; 12/04/2019 2:19 pm INDICATION: worsening headaches, tremor. COMPARISON: None. ACCESSION NUMBER(S): [id number] ORDERING CLINICIAN: LORE GARDINER TECHNIQUE: Axial T2, FLAIR, DWI, gradient echo T2 and T1 weighted images of brain were acquired. Post contrast T1 weighted images were acquired after administration of 13 milliliter MULTIHANCE (GADOBENATE DIMEGLUMINE) gadolinium based intravenous contrast. FINDINGS: CSF Spaces: The ventricles, sulci and basal cisterns are within normal limits. Parenchyma: There is no diffusion restriction abnormality to suggest acute infarct. There is no focal parenchymal signal abnormality. There is no mass effect or midline shift. There is no abnormal parenchymal enhancement. Paranasal Sinuses and Mastoids: There is a retention cyst or polyp along the floor of the left maxillary sinus. There is another within the anteromedial right sphenoid sinus. There is partial opacification of a posterior ethmoid air cell on the right and minimal mucosal thickening within the inferior right maxillary sinus. The mastoid air cells are clear. IMPRESSION: No evidence of acute infarct, intracranial mass effect or midline shift. Electronically signed by: GERONIMO KATZ, [facility] 83-95-7558Mkhy T4 [Mass/Vol]2.5 ng/dLHigh0.9-1.7AThe Vanderbilt ClinicComment on above:Result Comment: Patients taking a biotin dose of up to 5 mg/day should refrain from taking biotin for 4 hours prior to sample collection. Patients taking a biotin dose of 5 to 10 mg/day should refrain from taking biotin for 8 hours prior to sample collection. Patients taking a biotin dose > 10 mg/day should consult with their physician or the laboratory prior to having a sample taken. Clinicians should consider biotin interference as a source of error, when clinically suspicious of the laboratory result.Performed By: #### FT4A #### [address] [address]IXIta 15-22-7266PGE8.420 uIU/mLNormal0.270-4.200Wayne HospitalComment on above:Result Comment: : 1st trimester:(9-12 weeks):0.180-2.900 uIU/mL 2nd trimester: 0.110-3.980 uIU/mL 3rd trimester: 0.480-4.710 uIU/mL Patients taking a biotin dose of up to 5 mg/day should refrain from taking biotin for 4 hours prior to sample collection. Patients taking a biotin dose of 5 to 10 mg/day should refrain from taking biotin for 8 hours prior to sample collection. Patients taking a biotin dose > 10 mg/day should consult with their physician or the laboratory prior to having a sample taken. Clinicians should consider biotin interference as a source of error, when clinically suspicious of the laboratory result.Performed By: #### LTSH #### [address] [address]JTOns 51-40-3216NGO1.220 uIU/mLHigh0.270-4.200Wayne HospitalComment on above:Result Comment: : 1st trimester:(9-12 weeks):0.180-2.900 uIU/mL 2nd trimester: 0.110-3.980 uIU/mL 3rd trimester: 0.480-4.710 uIU/mL Patients taking a biotin dose of up to 5 mg/day should refrain from taking biotin for 4 hours prior to sample collection. Patients taking a biotin dose of 5 to 10 mg/day should refrain from taking biotin for 8 hours prior to sample collection. Patients taking a biotin dose > 10 mg/day should consult with their physician or the laboratory prior to having a sample taken. Clinicians should consider biotin interference as a source of error, when clinically suspicious of the laboratory result.Performed By: #### LTSH #### [facility] [address] [place], [place] [address]FLJJSKZXIKBYJVXI,FREEon 35-65-2375DAYFLGCHCALAFXFS,FREE3.2 pg/mLNormal2.3 - 4.2SSt. [facility]'s Regional [facility]– [place] on above:Result Comment: Note new reference range as of 04/30/2019.Performed By: #### T3FRE #### [facility] [address] [place], [place] [address]MEAKLEHRG,FREEon 85-76-1406MTGCSYXIS,FREE1.16 ng/dLHigh0.61 - 1.12[facility] on above:Result Comment: Thyroxine Free testing is performed using different testing methodology at [facility] than at other [facility]. Direct result comparisons should only be made within the same method. . Biotin can cause falsely elevated free T4 results. Patients taking a Biotin dose of up to 10 mg/day should refrain from taking Biotin for 24 hours before sample collection. Patient taking a Biotin dose of >10 mg/day should consult with their physician or the laboratory before the blood draw.Performed By: #### T4FRE #### [address] [address]QPCdz 81-54-1591EYS Qn0.19 m[IU]/LLow0.44 - 3.98[facility] on above:Result Comment: Note new pediatric reference range as of 05/02/2019. TSH testing is performed using different testing methodology at [facility] than at other [facility]. Direct result comparisons should only be made within the same method.Performed By: #### TSH2 #### [address] [address]Atqb Diffon 40-82-8370Wwkqzyjbc (Bld) [#/Vol]0.0 E3/mcLNormal 0.0-0.2SColumbia Basin Hospital SystemComment on above:Order Comment: Order Added by Discern Expert.Performed By: #### [id number] #### ALEIDA CrandallHemo [address] [place], [place] [address]Ehejhlpyw/100 WBC (Bld)0.7 %Normal0.0-2.0[facility] SystemComment on above:Order Comment: Order Added by Discern Expert. Performed By: #### [id number] #### ALEIDA RemHemo [address] [place] [address]Tsd Absolute0.1 E3/mcLNormal0.0-0.7[facility] SystemComment on above:Order Comment: Order Added by Discern Expert.Performed By: #### [id number] #### ALEIDA RemHemo [address] [place] [address]Iquiirlmxzq/100 WBC (Bld)0.9 %Normal0.0-11.0[facility] SystemComment on above:Order Comment: Order Added by Discern Expert. Performed By: #### [id number] #### ALEIDA RemHemo [address] [place] [address]Pgnefcxivjq (Bld) [#/Vol]2.4 E3/mcLNormal1.2-3.4SColumbia Basin Hospital SystemComment on above:Order Comment: Order Added by Discern Expert.Performed By: #### [id number] #### ALEIDA RemHemo [address] [place] [address]Oyqynpryyty/100 WBC (Bld)37.3 %Bsiiej07.0-55.0[facility] SystemComment on above:Order Comment: Order Added by Discern Expert.Performed By: #### [id number] #### ALEIDA RemHemo [address] [place] [address]Hcoc Absolute0.7 E3/mcLNormal0.0-0.7[facility] SystemComment on above:Order Comment: Order Added by Discern Expert.Performed By: #### [id number] #### ALEIDA CrandallHemo [address] [place] [address]Wpfkufznh/100 WBC (Bld)10.1 %High0.0-10.0[facility] SystemComment on above:Order Comment: Order Added by Discern Expert. Performed By: #### [id number] #### ALEIDA CrandallHemo [address] [place] [address]Sbirvg Absolute3.3 E3/mcLNormal1.4-6.5SColumbia Basin Hospital SystemComment on above:Order Comment: Order Added by Discern Expert.Performed By: #### [id number] #### ALEIDA CrandallHemo [address] [place] [address]Wpjkju Auto51.0 %Cproqa14.0-75.0[facility] Health Medical CenterComment on above:Order Comment: Order Added by Discern Expert.Performed By: #### [id number] #### ALEIDA CrandallHemo [address] [place] [address]ILZ w/ Auto Diffon 68-81-8830Jstpxwicrnn distribution width (RBC) [Ratio]12.2 %Vyivku37.5-14.5SColumbia Basin Hospital SystemComment on above:Performed By: #### [id number] #### ALEIDA CrandallHemo [address] [place] [address]Rpyxzxejed (Bld) [Volume fraction]40.7 %Zknnld57.0-48.0 [facility] Medical CenterComment on above:Performed By: #### [id number] #### ALEIDA CrandallHemo [address] [place] [address]Otmggkmrrg (Bld) [Mass/Vol]13.5 g/lZRxvfkg77.0-16.0[facility] SystemComment on above:Performed By: #### [id number] #### ALEIDA CrandallHemo [address] [place] [address] 03176SDP (RBC) [Entitic mass]30.4 bqSqphso53.0-31.0[facility] SystemComment on above:Performed By: #### [id number] #### ALEIDAVic CrandallHemo [address] [place] [address] 75451HBIY (RBC) [Mass/Vol]33.1 g/eYDwlccc61.0-37.0[facility] SystemComment on above:Performed By: #### [id number] #### ALEIDA Hardingdheeraj [address] [place], [place] [address]63[address]MCV (RBC) [Entitic vol]91.7 bSZmvddp66.0-100.0[facility] SystemComment on above:Performed By: #### [id number] #### ALEIDA KarleyValentin [address] [place], [place] [address]Platelet mean volume (Bld) [Entitic vol]9.0 fLNormal7.4-11.0 [facility] SystemComment on above:Performed By: #### [id number] #### ALEIDA KarleyHemdheeraj [address] [place], [place] [address]Platelets (Bld) [#/Vol]283 E3/lkZQzbays801-841Cvdjfclaf [facility] SystemComment on above:Performed By: #### [id number] #### ALEIDA KarleyHemo [address] [place], [place] [address]RBC (Bld) [#/Vol]4.44 E6/mcLNormal3.90-5.40SColumbia Basin Hospital SystemComment on above:Performed By: #### [id number] #### ALEIDA Meaghandheeraj [address] [place], [place] [address]WBC (Bld) [#/Vol]6.5 E3/mcLNormal3.6-11.0[facility] SystemComment on above:Performed By: #### [id number] #### ALEIDA KarleyHemdheeraj [address] [place] [address] 29660NWZny 32-17-5118Ujmudxr [Mass/Vol]4.1 g/dLNormal3.4-5.0 [facility] SystemComment on above:Performed By: #### [id number] #### ALEIDA [place] [id number]/Globulin [Mass ratio]1.4 {ratio}Normal1.1-1.9[facility] SystemComment on above:Performed By: #### [id number] #### ALEIDA [address] [address]Aar Phos51 Int._Unit/XQeiqzl36-300GyrpzhibwQuincy Valley Medical Center SystemComment on above:Performed By: #### [id number] #### ALEIDA [employer]ink [address] [place] [address] 43818LNB [Catalytic activity/Vol]17 Int._Unit/LNormal7-45[facility] SystemComment on above:Performed By: #### [id number] #### ALEIDA [employer] [address] [place] [address] 67184Kdzud gap [Moles/Vol]9 mmol/KEee41-51WhxgvrmsnColumbia Basin Hospital SystemComment on above:Performed By: #### [id number] #### ALEIDA [employer] [address] [place] [address] 18798IKR [Catalytic activity/Vol]12 Int._Unit/LNormal9-39[facility] SystemComment on above:Performed By: #### [id number] #### ALEIDA [employer] [address] [place] [address] 30661Ssac Total0.69 mg/dLNormal0.00-1.20SColumbia Basin Hospital SystemComment on above:Performed By: #### [id number] #### ALEIDA [employer] [address] [place] [address] 48859Jmepshl [Mass/Vol]9.3 mg/dLNormal8.6-10.3SColumbia Basin Hospital SystemComment on above:Performed By: #### [id number] #### ALEIDA [employer] [address] [place] [address] 90545Exohazqn [Moles/Vol]105 mmol/PJwzlxs40-264OdetovmijQuincy Valley Medical Center SystemComment on above:Performed By: #### [id number] #### ALEIDA [employer] [address] [place] [address] 49788VG9 [Moles/Vol]27.0 mmol/XPlwdwk36.0-32.0[facility] SystemComment on above:Performed By: #### [id number] #### ALEIDA [employer] [address] [place] [address] 83556Ftmbgycsnb [Mass/Vol]0.7 mg/dLNormal0.5-1.1SColumbia Basin Hospital SystemComment on above:Performed By: #### [id number] #### ALEIDA [employer] [address] [place] [address] 16542Oyklxedy (S) [Mass/Vol]3.0 g/dLNormal2.0-4.0[facility] CenterComment on above:Performed By: #### [id number] #### ALEIDA [employer]ink [address] [place] [address] 43373Lvruoog [Mass/Vol]87 mg/kHAeheox17-77JbspvpwtiBaptist Health Medical CenterComment on above:Performed By: #### [id number] #### ALEIDA [employer] [address] [place] [address] 23176Fximrjmdr [Moles/Vol]3.8 mmol/LNormal3.5-5.3SDrew Memorial HospitalComment on above:Performed By: #### [id number] #### ALEIDA D[employer]ink [address] [place] [address] 09670Zhbbkzk [Mass/Vol]7.0 g/dLNormal6.4-8.2SDrew Memorial HospitalComment on above:Performed By: #### [id number] #### ALEIDA [employer]ink [address] [place] [address] 43001Vhhxro [Moles/Vol]137 mmol/PZcvfle242-352JymvoxkqjBaptist Health Medical CenterComment on above:Performed By: #### [id number] #### ALEIDA [employer]ink [address] [place] [address] 00412Cpew nitrogen [Mass/Vol]14 mg/dLNormal6-23[facility] Medical CenterComment on above:Performed By: #### [id number] #### ALEIDA [employer] [address] [place] [address] 11849Qovs nitrogen/Creatinine [Mass ratio]20.0 ratioNormal5.4-30.0 [facility] CenterComment on above:Performed By: #### [id number] #### ALEIDA [employer] [address] [place] [address] 927[address]Apob T4on 78-66-0195Orin T4 [Mass/Vol]1.12 ng/dLNormal0.58-1.64 [facility] Medical CenterComment on above:Result Comment: Patients receiving more than 5mg/day of biotin may have interference in test results. A sample should be taken no sooner than eight hours after previous dose.Performed By: #### [id number] #### ALEIDA [employer] [address] [place], [place] [address]Cmyvmaacuar 69-35-5215Fdehxnnyl [Mass/Vol]2.0 Int._Unit/LNormal 1.6-2.4SDrew Memorial HospitalComment on above:Performed By: #### [id number] #### ALEIDA [employer] [address] [place] [address] 19054HZRwj 39-55-6648OUQ Qn1.13 mcIU/mLNormal0.30-5.60[facility] Medical CenterComment on above:Performed By: #### [id number] #### ALEIDA [employer] [address] [place] [address] 16213nJCVtj 18-96-1275GDV/1.73 sq M predicted among non-blacks MDRD (S/P/Bld) [Vol rate/Area]mL/min/{1.73_m2}[facility] Comment on above:Order Comment: Order added by Discern Expert.Performed By: #### [id number] #### ALEIDA [employer] [address] [place] [address] Vital Signs Date TimeVital SignValuePerforming GdhctqdljGtyojzdw71-42-3354 08:05-0500Body .8 cmKendra Miles BARROS-PORTER BAGGAGE Work Phone: [facility]11-04-2025 08:05-0500Body mass index (BMI) [Ratio]24.85 kg/i1HnvoitDariela Aquino APRN-PORTER [employer] Work Phone: [facility]11-04-2025 08:05-0500Body dowenbxorza01.81 [degF]Dariela Aquino APRN-[employer] Work Phone: [facility]11-04-2025 08:05-0500Body xnypmg65.56 kgKendra Miles PATINON-PORTER [employer]AGE Work Phone: [facility]11-04-2025 08:05-0500Diastolic blood tzavwigw07 mm[Hg]Dariela Aquino INFORMATICIST-[employer]TER [employer] Work Phone: [facility]11-04-2025 08:05-0500Heart rate 68 /minKendra Aquino INFORMATICIST-[employer]TER [employer] Work Phone: [facility]11-04-2025 08:05-0500Systolic blood llpihjsq786 mm[Hg]Dariela Aquino INFORMATICIST-[employer] Work Phone: [facility]10-20-2025 15:20-0400Body udykdb245.8 cmCorey Michelet DO Work Phone: [facility] SystemJbvxktwwcf49-94-3742 15:20-0400Body mass index (BMI) [Ratio]24.68 kg/u6Dabgz Michelet DO Work Phone: [facility] SystemNuchluohel68-99-7759 15:20-0400Body qvhboh01.02 kgCorey Michelet DO Work Phone: [facility] SystemYrwsjhqbxm92-02-8031 15:20-0400Diastolic blood umbghahz71 mm[Hg]Gigi Michelet DO Work Phone: [facility] SystemFxdaizqlex60-74-1498 15:20-0400Systolic blood mm[Hg]Gigi Michelet DO Work Phone: [facility] SystemXtmqyzuqhn16-83-1916 14:38-0500Body jnoqow682.8 cmHilary Briscoe MD Work Phone: [phone]01-22-2025 14:38-0500Body mass index (BMI) [Ratio]24.54 kg/x1PiccolvHilary Briscoe MD Work Phone: [facility]01-22-2025 14:38-0500Body aljyjw67.56 kgHilary Briscoe MD Work Phone: [facility]01-22-2025 14:38-0500Diastolic blood nmgytkzd35 mm[Hg]Hilary Briscoe MD Work Phone: [facility]01-22-2025 14:38-0500Heart rate 108 /minHilary Briscoe MD Work Phone: [facility]01-22-2025 14:38-0500Systolic blood dnamgcfy817 mm[Hg]Hilary Briscoe MD Work Phone: [facility]08-19-2024 15:36-0400Body uxgbdy570.8 cmCorey Michelet DO Work Phone: [facility] SystemFsktdzwnnk11-85-3542 15:36-0400Body mass index (BMI) [Ratio]24.39 kg/x6Mhhes Michelet DO Work Phone: [place] [address]Ctguojmzps99-25-0772 15:36-0400Body hfaijh16.11 kgCorey Michelet DO Work Phone: [place] [address]Kzvqfmxvri87-83-3203 15:36-0400Diastolic blood kgqjpxeq35 mm[Hg]Gigi Michelet DO Work Phone: [place] [address]Uheskdjnkz12-53-9813 15:36-0400Systolic blood gfmizdhk058 mm[Hg]Gigi Michelet DO Work Phone: [place] [address]Uxkpdqtrop61-66-2340 09:00-0400Body rhjomb469.8 cmJose Leroy MD Work Phone: [facility]04-15-2024 09:00-0400Body gzozsk29.02 kgJose Leroy MD Work Phone: [place] [address]-15-2024 09:00-0400Diastolic blood bossjzim08 mm[Hg]Jose Leroy MD Work Phone: [place] [address]-15-2024 09:00-0400Heart rate87 /min Jose Leroy MD Work Phone: 1(248) 396-[address]15-2024 09:00-0400Systolic blood onvejzcr505 mm[Hg]Jose Leroy MD Work Phone: [facility]03-09-2023 08:55-0500Body htfevz964.34 cmKatine Vic Gardiner Work Phone: [address] Work Phone: 1(216)[phone] 08:55-0500Body mass index (BMI) [Ratio] 21.76 kg/v6Xjjdsnduy Vic Gardiner Work Phone: NB[address] Work Phone: 1(216)[phone] 08:55-0500Body surface area Derived from formula1.9 y7Cxpbibeyq Vic Gardiner Work Phone: DQ[address]PZCZP[address] Work Phone: 1(216)[phone]90 08:55-0500Body .76 kgKatine Vic Gardiner Work Phone: CJ-YNOAF[address] Work Phone: 1(216)[phone] 08:55-0500Diastolic blood khdtesqc06 mm[Hg] Lore Vic Gardiner Work Phone: LI[address]NOFSM[address] Work Phone: 1(216)863-234893-21395299-66-3302 08:55-0500Heart aabi935 /minKatine Vic Gardiner Work Phone: II-VHUZI[address] Work Phone: 1(216)371-743055-79560079-12-3734 08:55-0500Systolic blood nfxolllz683 mm[Hg] Lore Vic Gardiner Work Phone: XC-ZSSXV[address] Work Phone: 1(216)758-867337-27457674-36-6593 08:55-80857 1Katherine A Jennifer Work Phone: IP-GWOTI[address] Work Phone: Comment on above:YMQX33-92-3496 08:55-21722 1Katherine A Jennifer Work Phone: 1(501) [phone]-MQELT[address] Work Phone: Comment on above:HFLAObqiHrlsw04-09-3229 08:24-0500 Body ynrzvp960.8 cmJose Leroy MD Work Phone: [facility]02-16-2023 08:24-0500Body qgzjod85.72 kgJose Leroy MD Work Phone: [facility]02-16-2023 08:24-0500Diastolic blood xeywhjmg64 mm[Hg]Jose Leroy MD Work Phone: [facility]02-16-2023 08:24-0500Heart rate98 /min Jose Leroy MD Work Phone: [facility]02-16-2023 08:24-0500Systolic blood kbdfsbmo905 mm[Hg]Jose Leroy MD Work Phone: [facility]12-20-2022 15:13-0500Blood Pressure LocationSiván Lucia [phone]-GnereUpper Valley Medical Center 02-15-2022 15:13-0500Diastolic blood xycyyrpl28 mm[Hg]Chen Lucia [phone]-KlqnfUpper Valley Medical Center 02-15-2022 15:13-0500Heart rate96 /minSiván Lucia [phone]-GwnguUpper Valley Medical Center 02-15-2022 15:13-5147SaE4% (BldA) [Mass fraction]100 %Chen Lucia [phone]-NyiztUpper Valley Medical Center 02-15-2022 15:13-0500Systolic blood qxgzjsho081 mm[Hg]Chen Lucia 078-8526Huhxus-UytzkUpper Valley Medical Center 07-20-2021 18:23-0400Body vxtudq272.8 [facility] 07-20-2021 18:23-0400Body mass index (BMI) [Ratio]22.9 kg/o2JnqjvzmuuRegency Hospital [facility]05-24-2022 18:23-0400Body sqvqxrynhiy78.9 [degF][facility]05-24-2022 18:23-0400Body oyzmrr20.65 kgReg[facility]05-24-2022 18:23-0400Diastolic blood xppczfie83 mm[Hg][facility]05-24-2022 18:23-0400Heart pnxh191 /[facility]05-24-2022 18:23-0400Respiratory rate19 /[facility]05-24-2022 18:23-8747OmP0% (BldA) [Mass fraction]100 %[facility]05-24-2022 18:23-0400Systolic blood mknmcrhi625 mm[Hg] [facility]05-18-2022 14:00-0400Body liqhia738.34 cm Yenifer Missler Other [employer] Other 05-18-2022 14:00-0400Body mass index (BMI) [Ratio] 22.33 kg/u4Sguhnav Missler Other [employer] Other 05-18-2022 14:00-0400Body hbtmlnitvpc52.3 [degF] Yenifer Missler Other [employer] Other 05-18-2022 14:00-0400Body errrfp95.62 kgHeather Missler Other [employer] Other 05-18-2022 14:00-0400Diastolic blood jwcboyzu43 mm[Hg] Yenifer Missler Other [employer] Other 05-18-2022 14:00-0400Respiratory rate18 /minHeather Missler Other [employer] Other 05-18-2022 14:00-6892YcA1% (BldA) [Mass fraction]98 % Yenifer Cuellar Other [employer] Other 05-18-2022 14:00-0400Systolic blood bdinhxrg869 mm[Hg] Yenifer Cuellar Other [employer] Other 03-24-2022 08:27-0400Body ufapff247.8 cmJose Leroy MD Work Phone: [facility]03-24-2022 08:27-0400Body .13 kgJose Leroy MD Work Phone: [facility]03-24-2022 08:27-0400Diastolic blood imvexuzp85 mm[Hg]Jose Leroy MD Work Phone: [facility]03-24-2022 08:27-0400Heart rate87 /min Jose Leroy MD Work Phone: [facility]03-24-2022 08:27-0400Systolic blood ongnkjvh502 mm[Hg]Jose Leroy MD Work Phone: [facility]03-07-2022 15:45-0500Body ixcliq694.34 cmLalitorashawn Boothe Other [employer] Other 03-07-2022 15:45-0500Body mass index (BMI) [Ratio] 21.62 kg/u0JdfdfbbAisha Boothe Other [employer] Other 03-07-2022 15:45-0500Body mdzimntcaur28.7 [degF] Aisha Boothe Other [employer] Other 03-07-2022 15:45-0500Body gbtuge86.31 kgDerashawn Boothe Other [employer] Other 03-07-2022 15:45-0500Diastolic blood eapahbpw46 mm[Hg] Aishaemily Ramirezly Other [employer] Other 03-07-2022 15:45-0500Respiratory rate18 /minDeborah Ashleyly Other [facility] Other 03-07-2022 15:45-6276GvB1% (BldA) [Mass fraction]98 % Aisha Boothe Other [facility] [employer] Other 03-07-2022 15:45-0500Systolic blood loaiqfcv563 mm[Hg] Aisha Boothe Other [facility] [employer] Other 08-27-2021 08:12-0400Body itbycp212.8 cmJuan R Bhagat Jr., DPM Work Phone: 1(710) [phone]892CiooLlqrza71-30-1407 08:12-0400Body mass index (BMI) [Ratio]21.52 kg/p3FmkpvwxlJuan R Bhagat Jr. DPM Work Phone: 1(180) [phone]pkkhl95-32-4118 08:12-0400Body prljkxxyirc96.5 [degF]Juan R Bhagat Jr., DPM Work Phone: 1(352) [phone]83NejbJzuour87-28-1475 08:12-0400Body itfegu94.04 kg Juan R Bhagat Jr., DPM Work Phone: 1(880) [phone]kvzGfgpdl16-20-4978 08:12-0400Diastolic blood lsldhjez21 mm[Hg]Juan R Bhagat Jr., DPM Work Phone: 1(135)[phone]odyMdmmkx63-74-9082 08:12-0400Heart rate91 /min Juan R Whitfieldn Jr., DPM Work Phone: 1(560)[phone]blCrggqh34-61-9226 08:12-0400Systolic blood pressure 126 mm[Hg]Juan R Leola Jr., DPM Work Phone: 1(582)[phone]ighXewmgp04-81-0131 16:16-0400Body wpqxksktmel42.8 [degF]Juan R Leola Jr., DPM Work Phone: 1(130)[phone]jbZwmmbb60-92-1591 16:16-0400Diastolic blood uakrnlpi39 mm[Hg]Juan R Leola Jr., DPM Work Phone: 1(288)[phone]iqsVmqtvk67-96-0872 16:16-0400Heart rate96 /min Juan R Leola Jr., DPM Work Phone: 1(268)[phone]eifXpaans48-85-8965 16:16-0400Systolic blood pressure 118 mm[Hg]Juan R Whitfieldn Jr., DPM Work Phone: 1(427)[phone]khhZdicgf25-03-4686 14:08-0400Body sfmwab446.8 cm Juan R Whitfieldn Jr., DPM Work Phone: 1(688)[phone]fMgqjwr28-79-6102 14:08-0400Body mass index (BMI) [Ratio]21.52 kg/n7Rzrxgzrjgudelia Whitfieldn Jr., DPM Work Phone: 1(460)[phone]jXoktcj83-19-0793 14:08-0400Body tqhiztjrmyt05.7 [degF]Juan R Whitfieldn Jr., DPM Work Phone: 1(632)[phone]vBrjhrx26-59-4702 14:08-0400Body upmwqc13.04 kg Juan R Whitfieldn Jr., DPM Work Phone: 1(594)[phone]lvrem88-91-7927 14:08-0400Diastolic blood qzcusmhy14 mm[Hg]Juan R Whitfieldphyllis Oconnell, DPM Work Phone: 1(669) [phone]EedrIrddrr56-21-1975 14:08-0400Heart rate85 /min Juan R Whitfieldphyllis Oconnell, DPM Work Phone: 1(842) [phone]JuawUjppfo80-08-5590 14:08-0400Systolic blood pressure 137 mm[Hg]Juan R Whitfieldphyllis Oconnell, [facility] Work Phone: 1(264) [phone]8835BejpPlxxjy24-06-9890 17:30-0400BMI (Body Mass Index) 21.12 kg/t6Jhzgffplp [facility] Work Phone: 1(481) 183-469109-22-2020 17:30-0400Body Tnomrwnjaht58.6 [degF] Lore [facility] Work Phone: 1(975) 141-460209-22-2020 17:30-0400Body .69 kgAddisWestside [facility] Work Phone: 1(478) 350-873609-22-2020 17:30-0400BP Tmwbmnewn98 mm[Hg][facility] Work Phone: 1(582) 877-380509-22-2020 17:30-0400BP Tyxlxakj994 mm[Hg][facility] Work Phone: 1(392) 289-191809-22-2020 17:30-0400BSA (Body Surface Area)1.87 m2 [facility] Work Phone: 1(267) 495-827809-22-2020 17:30-6211Ubzllf525.34 cmKindred Hospital Daytonmorgan [facility] Work Phone: 1(621) [phone] 17:30-0400Pulse (Heart Rate)112 /min [facility] Work Phone: Encounters Encounter DateEncounter TypeCare ProviderFacilityStart: 11-04-2025 End: 41-32-2977Zfdphe flowsheetCorey Michelet DO Work Phone: [facility] OBGYNStart: 12-31-2024 End: 17-50-8610Hsffkx flowsheetCorey Michelet DO Work Phone: [facility] OBGYNStart: 12-31-2024 End: 96-54-8090Mwurdjm encounter statusDariela Aquino INFORMATICIST-[employer] Work Phone: [employer] Work Phone: Start: 12-31-2024 End: 67-36-6840Obiprjek preventive med est patient 18-39 yrsDariela Aquino INFORMATICIST-PORTER [employer] Work Phone: [facility] Physicians Family MedicineComment on above: Wellness examination (Primary Dx); Polycystic ovary syndrome; Elena's thyroiditisStart: 12-16-2024 End: 55-74-6202Amjltg outpatient visit 15 minutesCorey Michelet DO Work Phone: [facility] OBGYNComment on above:Elena's thyroiditis; Infertility counseling; History of miscarriageStart: 12-16-2024 End: 17-02-5907oononpwscaDHHTR FAZIONot AvailableStart: 12-16-2024 End: 19-00-8825Jkxmhd flowsheetCorey Michelet DO Work Phone: [facility] OBGYNStart: 12-16-2024 End: 46-91-0372Zgsfda flowsheetCorey Michelet DO Work Phone: noMS Beny OBGYNStart: 12-16-2024 End: 04-45-1365Lkicvw-up encounterHilary Briscoe MD Work Phone: [phone] - LabComment on above:TSH with ReflexStart: 68-26-2649aeszdslgjzYDAQSBQ RODEMANProMarietta Osteopathic Clinic HospitalStart: 53-93-8815ktjynygaymJJIPB [facility] Start: 76-47-5957cwbkkzzrudWTGQX [facility] HospitalStart: 09-19-2024 End: 65-32-7680Dbrbwl-up encounterHilary Briscoe MD Work Phone: [facility] [place] EndocrinologyComment on above:TSH with ReflexStart: 66-48-2953ygbcpcsgtlSGPQYGTSouthern Maine Health Care HospitalStart: 09-05-2024 End: 40-94-9541Zcjmjwcz Result EncounterCorey Michelet DO Work Phone: noms External Department UnsolicitedStart: 09-05-2024 End: 90-84-5668Rzsiuqsh Result EncounterCorey Michelet DO Work Phone: noms External Department UnsolicitedStart: 09-05-2024 ambulatoryCOREY [facility] HospitalStart: 89-24-4587chkvpgkrjx GIGI [facility] HospitalStart: 07-30-2024 End: 09-22-0490Rxqxaw Santosh Briscoe MD Work Phone: [facility] EndocrinologyComment on above:Autoimmune thyroiditisStart: 07-29-2024 End: 46-88-3231Ndjmwr Santosh Briscoe MD Work Phone: [facility] LabComment on above:Autoimmune thyroiditis (Primary Dx)Start: 33-83-1519gnjwwhyjguBQPHKAR RODEMANKettering Health [facility] Township HospitalStart: 04-26-2024 End: 69-99-4806gjogvbpxqsYSVZU [facility] HospitalStart: 04-02-2024 End: 48-70-4024sfgimrgxneKQXQC [facility] HospitalStart: 03-29-2024 End: 46-02-5887skttarhzyeWITBHDF RODEMANKettering Health [facility] Township HospitalStart: 03-20-2024 End: 02-36-7017Kukxja outpatient new 45 minutesHilary Briscoe MD Work Phone: [facility] [place] EndocrinologyComment on above:PCOS (polycystic ovarian syndrome); Thyroid disease; History of miscarriage; Elena's thyroiditisStart: 03-20-2024 End: 88-65-3355sfyoipebhfZWDAVRT RODEMANSt. Mary's [facility] Center Ambulatory PPGStart: 03-19-2024 End: 21-66-1323augwxlkktqOMBOTMile Bluff Medical Center HospitalStart: 01-15-2024 End: 37-35-0054Idd Drop Keenaclara MyaCate Rea [facility] Start: 01-15-2024 End: 65-90-6527wihjccgtweMtufbh E. RossFacility:FTMCStart: 10-25-2023 End: 92-20-4646Fgtdr abstractingScanning Provider ExternalMaternal- Medicine at St. Francis Hospitaltart: 10-16-2023 End: 52-97-3736Zoxgqr outpatient visit 15 minutesCorey Michelet DO Work Phone: noms BCP OBComment on above:Elena's thyroiditis (CMS/HCC); History of miscarriageStart: 10-16-2023 End: 44-89-7546Bxzfzp flowsheetCorey Michelet DO Work Phone: NONZ BCP OBStart: 10-16-2023 End: 16-72-7720Jtxubc flowsheetCorey Michelet DO Work Phone: noms BCP OBStart: 10-12-2023 End: 61-52-9091Ahyqzgeej Result EncounterCorey Michelet DO Work Phone: noms External Department UnsolicitedStart: 10-12-2023 End: 11-05-6369Xwfqrcjnf Result EncounterCorey Michelet DO Work Phone: noms External Department UnsolicitedStart: 09-20-2023 ambulatoryJose Leroy MD Work Phone: [facility] EndocrinologyStart: 37-80-7531Njrzjgt encounter procedureJose Leroy MD Work Phone: [facility] EndocrinologyComment on above:TSH Trend/ LossStart: 88-14-0263Ijnxxs OnlyJose Leroy MD Work Phone: 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 RossFacility:[facility] K[facility] BellevueStart: 06-12-2023 End: 97-08-8465fxqvoieyxpESVYQUWAlecia NUNNOFacility:[facility]Start: 06-12-2023 End: 09-63-8665Vgqmcmx encounter procedureJose Leroy MD Work Phone: [facility] EndocrinologyComment on above: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); Encounter for medication management; Long-term current use of levothyroxine; Elena's disease; Family history of thyroid diseaseStart: 04-18-2023 End: 93-66-1980Gcpwzawmw Result EncounterCorey Michelet DO Work Phone: [facility] External Department UnsolicitedStart: 04-18-2023 End: 92-94-1989Tbgyliksl Result EncounterCorey Michelet DO Work Phone: [facility] External Department UnsolicitedStart: 02-14-2023 End: 39-85-4581txjuiunrarUrcrme E. RossFacility:[facility] BellevueStart: 01-23-2023 End: 16-98-0771Gvrlofgkr Result EncounterCorey Michelet DO Work Phone: [facility] External Department UnsolicitedStart: 01-23-2023 End: 79-16-5373Rxswqhlwr Result EncounterCorey Michelet DO Work Phone: [facility] External Department UnsolicitedStart: 11-15-2022 End: 32-04-1484Ykkxpwcms Result EncounterCorey Michelet DO Work Phone: [facility] External Department UnsolicitedStart: 11-15-2022 End: 97-66-1355Nlzwlfqsb Result EncounterCorey Michelet DO Work Phone: [facility] External Department UnsolicitedStart: 11-02-2022 ambulatoryJose Leroy MD Work Phone: [facility] EndocrinologyComment on above:TSH 0.58Start: 09-20-2022 End: 60-05-5207quflghjspnISSVQPBKaryn NUNNOFacility:[facility]Start: 64-31-8762Sfgnjyhuv encounterJose Leroy MD Work Phone: [facility] General EndocrinologyComment on above:Future AppointmentStart: 75-26-2754xjyfiipxerEgbzpglKaryn Leroy MD Work Phone: [facility] General EndocrinologyComment on above:TSH 2.13; trending upStart: 92-37-5215ngkycxycndEpbnjqmKaryn Leroy MD Work Phone: [facility] General EndocrinologyComment on above:August ApptsStart: 21-64-6752xdfkmktcahKS GIGI MICHELET .Facility:Z8Uraud: 07-07-2022 End: 88-76-8878yxntavyuhwNB GIGI MICHELET .Facility:Y5Krfdz: 06-22-2022 End: 11-50-6821ddmttjmnwbBSLWFQ ELIAS ROSSFacility:D0Rjhlc: 06-10-2022 End: 21-49-7604uwmdulmznfPD GIGI MICHELET .Facility:W1Rwvks: 06-09-2022 End: 89-99-4367xpggyxdjpiICPTIN ELI ROSSFacility:P8Gpdrk: 05-31-2022 End: 41-47-7881aptsllvdioSjosuijKaryn Leroy MD Work Phone: 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 EndocrinologyComment on above:AppointmentStart: 44-58-0858deadyskpbpZhlulqwAlecia Leroy MD Work Phone: [facility] EndocrinologyComment on above:Positive TestStart: 09-11-5990Ecdoxdske encounterJose Leroy MD Work Phone: [facility] EndocrinologyComment on above:AppointmentStart: 52-92-7747Xmetpye tobacco non-user cad cap copd pv dm Lore Gardiner Work Phone: [phone]-YVOSH-R[address] Work Phone: Start: 65-64-1641spucwxgptfVmCate Sullivan Facility:[facility] Alexis Hardytart: 41-15-0537Lyllqm OnlyJose Leroy MD Work Phone: 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 EndocrinologyComment on above:TSH 0.02Start: 02-15-2022 End: 07-24-4725Buj Drop offSiván Lucia [facility] Start: 02-15-2022 End: 43-28-4050Bwukkcv encounter procedureSiván RoqueCate Rea [phone]-[facility]icUpper [facility] Start: 01-10-2022 End: 80-22-3486txfaafqywzTH GIGI TAFOYA .Facility:B0Cbhel: 31-39-6681Ocemix Only Jose Leroy MD Work Phone: [facility] EndocrinologyComment on above: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Start: 10-29-2021 End: 88-13-6401vfkfwjptqrEuvqx FazioFacility:[facility] Start: 10-20-2021 End: 05-07-6111yzvfuywoogLparm FazioFacility:[facility] Start: 10-20-2021 End: 90-60-3687Palisly encounter procedureMD Chen Lucia Work Phone: [facility] CampusStart: 67-81-7355Kaqsd abstractingJose Leroy MD Work Phone: [facility] EndocrinologyComment on above:Abstract (Chart update)Start: 82-20-2251pqemhjhunvKmyaqcoKaryn Leroy MD Work Phone: [facility] EndocrinologyComment on above:TSH 11Start: 10-13-2021 End: 35-84-9653affqxpnzbkVycss FazioFacility:[facility] Start: 10-13-2021 End: 80-34-8089Cyoycre encounter procedureMD Chen Lucia Work Phone: [facility] CampusStart: 80-77-7646ryaljhtsfaRczqgydKaryn Leroy MD Work Phone: [facility] EndocrinologyComment on above:MiscarriageStart: 10-03-2021 End: 16-56-6252lgeswxqynnMD MARCELL MAGANAFacility:O9Rdkbe: 31-63-7745qotbmzkvvrPD GIGI MICHELET .Facility:K9Fdpiq: 09-28-2021 End: 12-17-7686dbswrigwufCzfswod GrechnyFacility:[facility] Hospitaltart: 09-28-2021 End: 83-54-6266Ytkaztn encounter procedureMD Chen Lucia Work Phone: [facility] CampusStart: 09-28-2021 End: 60-99-6891kjeiimqkhiKD TRI BERRIOSFacility:W2Bsvih: 09-24-2021 End: 37-93-8926nwbjbbrujgRafxyp E RossFacility:[facility] Start: 09-24-2021 End: 56-67-8819Eccghzv encounter procedureMD Chen Lucia Work Phone: [facility] CampusStart: 09-22-2021 End: 52-11-0213Qclpumf encounter procedureSiván Lucia [facility] Start: 09-22-2021 End: 68-87-7545Rtu Drop offSiván Lucia [facility] Start: 79-25-4292Ebjozvalbert Leroy MD Work Phone: [facility] EndocrinologyComment on above: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); Thyroid dysfunction in in first trimesterStart: 15-72-2400Yrilqw Only Jose Leroy MD Work Phone: [facility] EndocrinologyComment on above: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)Lab Orders (Fax )Start: 07-20-2021 End: 40-27-0621Ikahqzprs department patient visitNON STAFFFacility:[facility] Hospitaltart: 07-20-2021 End: 66-68-5115Ptixkoptf department patient visitThe [facility] Hospital [facility]- Emergency RoomStart: 07-15-2021 End: 70-07-1439wrmgqsdvqgJWR STAFFFacility:[facility] Start: 07-15-2021 End: 59-66-1407Ucilujv encounter procedureThe [facility]-Lab Main CampusStart: 07-14-2021 End: 85-24-1741yrkfkrjdtkCkpudzg cindy Other noSoftware [employer] Other Start: 84-91-9106Qrofbnr encounter Catie Leonard [facility] ClinicStart: 05-20-2021 End: 36-43-3412Jdxogcm encounter Carmelina Leroy MD Work Phone: 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 EndocrinologyComment on above:Lab Orders (Mail to patient)Start: 05-03-2021 End: 10-20-1746jdquwkzpcoYeohebu Scally Other noBoomerang Other Start: 02-57-9793Yqvjxtr encounter Aretha Hunter [facility] ClinicStart: 02-25-2021 End: 26-34-6358unsqwenpwbMHF STAFFFacility:[facility] Start: 02-16-2021([facility] C Vac) [facility] Ada VaccinePanchoWilson Memorial Hospital Care ClinicStart: 02-16-2021 End: 62-57-3591qcxqzmilnxLLA [facility] IncreaseCard Other Start: 01-19-2021([facility] C Vac) [facility] Ada VaccineDaWilson Memorial Hospital Care ClinicStart: 01-19-2021 End: 88-47-8520mnsdalirsrHQG [facility] [employer] Other Start: 10-23-2020 End: 88-12-0718pslbzthlcjAWGKZWSL DILLON JR.[facility] AmbulatoryStart: 10-23-2020 End: 57-56-7641Angrav outpatient visit 10 minutesJuan R Bhagat DPM Work Phone: [facility] PodiatryComment on above: Cellulitis of foot, right (Primary Dx)Start: 10-15-2020 End: 87-87-2236ztstlgrscwPROECDFK DILLON JR.[facility] AmbulatoryStart: 10-15-2020 End: 77-88-3730Lmrfai outpatient visit 15 minutesJuan R Bhagat DPM Work Phone: [facility] PodiatryComment on above: Cellulitis of foot, right (Primary Dx); Foreign body (FB) in soft tissueStart: 10-02-2020 End: 81-53-8211szwouuwzvdQFUQJCDW DILLON JR.[facility] AmbulatoryStart: 10-02-2020 End: 59-41-5905Nkxizg outpatient new 30 minutesJuan R Bhagat DPM Work Phone: [facility] PodiatryComment on above: Foreign body (FB) in soft tissue (Primary Dx); Acute foot pain, rightStart: 07-15-2020 End: 15-03-3317sfwgsfsnahPAEUHTZParkwood Hospital Start: 07-15-2020 End: 73-38-6321Gaiftcaxmb hospital visit by physicianSTALISHA LaboratoryStart: 11-25-2019 End: 93-39-8028Xaodlbq encounter procedureDEACONESS HOSPITAL – OKLAHOMA CITYGISELA ACEVES [facility] Centertart: 37-13-6234Fjndhmu encounter procedureKatjimy [facility] Work Phone: Start: 03-71-8185Ewoelnr encounter procedureKatjimy [facility] Work Phone: Start: 93-82-3384Fzoxjxd encounter procedureKatjimy [facility] Work Phone: Start: 58-26-8712Ytntyiz encounter procedureKatjimy [facility] Work Phone: Start: 09-08-2018 End: 47-40-5457extqhutojfUDPHYINCrystal Clinic Orthopedic Center Procedures DateProcedureProcedure DetailPerforming ClinicianStart: 80-36-8628Ikigo depression screening assessmentKendra Aquino INFORMATICIST-[facility] Work Phone: Start: 33-77-4689Gprla of progesteroneCorey Michelet DO Work Phone: Start: 86-91-6169Yf breast uni real time with image completeCorey Michelet DO Work Phone: Start: 99-79-4204Kb breast uni real time with image completeCorey Michelet DO Work Phone: Start: 16-60-8580LM BREAST LT LIMITEDCorey Michelet DO Work Phone: Start: 58-92-7614Af breast uni real time with image completeCorey Michelet DO Work Phone: Start: 83-95-7542Kgzoeunp sectionSSanford Hillsboro Medical Center Start: 05-42-3123HE OB BPP W NON-STRESSCorey Michelet DO Work Phone: Start: 11-99-3490Xhbmssvoauh observation [Identifier] in Cervix by Cyto stainScanning ExternalStart: 09-89-0289Nicig foot complete minimum 3 viewsJeremiah Leola DPM Work Phone: start: 03-25-0911BQRZ PREPJeremiah Leola DPM Work Phone: start: 76-62-5447LmbdttakltJxrqkfvnn A Jennifer Work Phone: Start: 23-63-6243Rcbsjzet procedure foot/toeLuana Lucia aerobic microbial cultureMD Chen Lucia Work Phone: End: 25-49-9960QopytuuauvLitaduidz Longrebekahfairbanks memorial hospitalOperative procedure on footKatjimy Longadventhealth [facility] Plan of Treatment DateCare ActivityDetailAuthorStart: 63-14-2658DMmF,Tdap and Td Vaccines (8 - Td or Tdap)DTaP,Tdap and Td Vaccines (8 - Td or Tdap)[facility] SystemStart: 68-70-0614Cwxhu microalbumin profileDTaP,Tdap,Td Vaccine (8 - Td or Tdap) [facility]tart: 98-52-0053Mhgzegp vaccinationTetanus: Every 10yrs [facility]HealthStart: 01-01-2026 End: 41-31-9687Ufrkbyg encounter btdigqhoj45/05/2026 4:00 PM EST Office Visit [facility] [address], [id number] Dariela Aquino, INFORMATICIST-[employer] [address] [place] [address] [facility] MedicineStart: 65-20-1897Rekdf BMI ScreeningAdult BMI ScreeningProMorrow County Hospitalca [facility] SystemStart: 76-84-4937Iwegxguizv ScreeningDepression ScreeningProMorrow County Hospitalca [facility] SystemStart: 91-67-8999Mcfixme ScreeningTobacco ScreeningProMorrow County HospitalSelect Medical [facility] SystemStart: 01-29-9083Diick BMI ScreeningAdult BMI ScreeningPremier Health [facility] SystemStart: 21-49-9389Iblkogh ScreeningTobacco ScreeningPremier Health [facility] Hospital SystemStart: 03-18-2025 End: 33-53-6813Okcpfgm encounter atbznaowe91/20/2026 2:30 PM EST Office Visit [facility] [place] [facility] [address] [place] [id number] Hilary Briscoe MD [address] [place] [address] [facility] [place] EndocrinologyStart: 56-26-3911Juvxuvrqn for malignant neoplasm of cervixProDayton Children'S Hospital SystemStart: 12-31-2024 End: 69-70-7836UAP W Auto Differential panel - BloodCBC auto differential Lab Routine Wellness examination Expected: 12/31/2024, Expires: 12/31/2025[facility] Work Phone: comment on above:Expected: 12/31/2024, Expires: 12/31/2025Start: 12-31-2024 End: 33-45-6605Sbyhh 1996 panel - Serum or PlasmaLipid profile Lab Routine Wellness examination Expected: 12/31/2024, Expires: 12/31/2025ProDayton Children'S Hospital SystemComment on above:Expected: 12/31/2024, Expires: 12/31/2025Start: 12-31-2024 End: 91-68-6430Rmwcell encounter procedureNOMS BCP OBComment on above:Arrived Start: 12-16-2024 End: 67-38-4600Aoxytee encounter xzndnliim06/20/2025 3:10 PM EDT Office Visit [facility] [address] [place] [id number] Gigi Tafoya DO [address] [place] [address] ArrivedNOMS Beny OBGYNComment on above:ArrivedStart: 10-29-2024 End: 93-16-5045FSJ with ReflexTSH with Reflex Lab Routine Autoimmune thyroiditis Expected: 10/29/2024 (Approximate), Expires: 07/29/2025[facility] Work Phone: comment on above:Expected: 10/29/2024 (Approximate), Expires: 07/29/2025Start: 31-83-7384DSURG-19 Vaccine ()COVID- 19 Vaccine ()[facility] SystemStart: 42-97-7992Ilupuqwpy vaccinationPrem[facility] Health [facility] SystemStart: 09-12-2024 End: 65-37-0099HAZ with ReflexTSH with Reflex Lab Routine Autoimmune thyroiditis Expected: 09/12/2024 (Approximate), Expires: 07/30/2025[facility] Work Phone: [phone] on above:Expected: 09/12/2024 (Approximate), Expires: 07/30/2025Start: 48-94-3282Athtsosnh for malignant neoplasm of cervix HPV/CotestNOMS HealthcareStart: 03-20-2024 End: 12-32-2866Jsctumi encounter ndzxpefds71/22/2025 2:30 PM EST [facility] [place] [facility] [address] [place] [id number] Hilary Briscoe MD [address] [place] [address] [facility] [place] EndocrinologyStart: 22-46-7579Xfbtl BMI ScreeningAdult BMI ScreeningProDayton Children'S Hospital SystemStart: 75-64-3388Wfvvvju ScreeningTobacco ScreeningProDayton Children'S Hospital SystemStart: 78-57-1678KBCRA-19 Vaccine ( season)COVID-19 Vaccine ()[facility] SystemStart: 89-50-5223Pcirjzscf vaccinationMount St. 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 Expected: 07/28, Expires: 11/13/2023[facility] Work Phone: Comment on above:Expected: 08/14/2023, Expires: 11/13/2023Start: 08-14-2023 End: 28-10-6490Vxwkdjcsr (T4) free [Mass/volume] in Serum or PlasmaT4 FREE/FREE THYROXINE Lab Routine 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 Expected: 08/14/2023, Expires: 11/13/2023[facility] HospitalComment on above:Expected: 08/14/2023, Expires: 11/13/2023Start: 06-12-2023 End: 73-27-5127Rtswsggpxqj [Units/volume] in Serum or PlasmaTHYROID STIMULATING HORMONE Lab Routine 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 Expected: 05/28, Expires: 09/11/2023[facility] Work Phone: Comment on above:Expected: 06/12/2023, Expires: 09/11/2023Start: 06-12-2023 End: 41-62-9975Ccmcxvjpd (T4) free [Mass/volume] in Serum or PlasmaT4 FREE/FREE THYROXINE Lab Routine 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 Expected: 06/12/2023, Expires: 09/11/2023[facility] Work Phone: Comment on above:Expected: 06/12/2023, Expires: 09/11/2023Start: 06-12-2023 End: 31-99-4273Nqbqnbxiltwklobx (T3) Free [Mass/volume] in Serum or PlasmaT3, FREE Lab Routine 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 Expected: 06/12/2023, Expires: 09/11/2023[facility] Work Phone: Comment on above:Expected: 06/12/2023, Expires: 09/11/2023Start: 08-51-0007Frwhheoyhq Health ScreeningBehavioral Health ScreeningMount St. Mary Hospitaltart: 81-29-4325Eznoq-19 Vaccine () Covid-19 Vaccine ()[facility]tart: 46-46-7619Gpiukmoct vaccinationMount St. Mary Hospitaltart: 04-14-2022 End: 02-81-5920Rsbggqyycpv [Units/volume] in Serum or PlasmaTSH BLD Lab Routine 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 Expected: 04/14/2022, Expires: [facility] Work Phone: Comment on above:Expected: 04/14/2022, Expires: 06/14/2022Start: 04-14-2022 End: 38-94-7262Zlgnzppwe (T4) [Mass/volume] in Serum or PlasmaT4/THYROXINE BLOOD Lab Routine 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 Expected: 04/14/2022, Expires: 06/14/2022[facility] Work Phone: Comment on above:Expected: 04/14/2022, Expires: 06/14/2022Start: 04-14-2022 End: 37-31-4359Nwtnkdljt (T4) free [Mass/volume] in Serum or PlasmaT4 FREE/FREE THYROX Lab Routine 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 Expected: 04/14/2022,Expires: 06/14/2022[facility] Work Phone: Comment on above:Expected: 04/14/2022, Expires: 06/14/2022Start: 43-57-3822DMNIXRIKHU ASSESSMENTDEPRESSION ASSESSMENTMount St. Mary Hospitaltart: 10-29-2021 End: 65-57-1324Mlkdkgx encounter procedureDepartSelect Medical Specialty [facility] CampusStart: 02-84-4851Xprsgsgwa vaccinationINFLUENZA (#1) 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 Thyroid dysfunction in i n first trimester Expected: 10/18/2021, Expires: 12/18/2021[facility] Work Phone: Comment on above:Expected: 10/18/2021, Expires: 12/18/2021tart: 10-13-2021 End: 99-93-3433Flpcvni encounter procedureDepartSelect Medical Specialty Hospital [facility] Ctr-Lab [facility] SpringfieldStart: 09-16-2021 End: 99-28-9603Ljgjmafgquw [Units/volume] in Serum or PlasmaTSH BLD Lab Routine 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 Expected: 09/16/2021, Expires: [facility] Work Phone: Comment on above:Expected: 09/16/2021, Expires: 11/16/2021tart: 09-16-2021 End: 88-95-9924Hbutlqrpy (T4) free [Mass/volume] in Serum or PlasmaT4 FREE/FREE THYROX Lab Routine 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 Expected: 09/16/2021,Expires: 11/16/2021[facility] Work Phone: Comment on above:Expected: 09/16/2021, Expires: 11/16/2021tart: 07-20-2021 End: 52-11-2275Snqaxqdwdye [Units/volume] in Serum or PlasmaTS BLD Lab Routine 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 Expected: 07/20/2021 (Approximate) , Expires: 2CMer[facility] Work Phone: Comment on above:Expected: 07/20/2021 (Approximate), Expires: 09/19/2021tart: 37-66-8296ISC Vaccines (1 - 3-dose SCDM series)HPV Vaccines (1 - 3-dose SCDM series)[facility] SystemStart: 05-20-2021 End: 26-33-2654O9 FREE BLDCMercy Health [facility] Work Phone: Comment on above:Expected: 05/20/2021, Expires: 07/20/2021tart: 05-20-2021 End: 20-24-8005M0 FREE/FREE THYROXCMercy Health [facility] Work Phone: Comment on above:Expected: 05/20/2021, Expires: 07/20/2021tart: 05-20-2021 End: 82-61-0656Mulagjppfbt [Units/volume] in Serum or PlasmaMer[facility] Health West Hospital Work Phone: Comment on above:Expected: 05/20/2021, Expires: 07/20/2021tart: 05-20-2021 End: 13-75-1859Lygeojicm (T4) [Mass/volume] in Serum or PlasmaMercy Health West Hospital Work Phone: Comment on above:Expected: 05/20/2021, Expires: 07/20/2021tart: 99-89-8315CLHIJ-19 VACCINE (3 - Booster for Moderna series) COVID-19 VACCINE (3 - Booster for Moderna series)[facility]: 62-51-8412NRORE-19 VACCINE (3 - Moderna series)COVID-19 VACCINE (3 - Moderna series)[facility]: 39-32-5847ZWILD-19 VACCINE (3 - Moderna risk 4- dose series)COVID-19 VACCINE (3 - Moderna risk 4-dose series)[facility] Start: 99-10-2230KTCUH-19 VACCINE (3 - Moderna risk series)COVID-19 VACCINE (3 - Moderna risk series)[facility]: 89-01-4731PTYGMWDUXM ASSESSMENT DEPRESSION ASSESSMENTMount St. Mary Hospitaltart: 33-17-3287Oivgtxjkg vaccination [facility]Start: 10-23-2020 End: 20-88-2058Koexpie encounter dvrujylqj90/27/2021 Office Visit Podiatry Juan R Bhagat Jr., DPMeagan [address] [place] [address] [facility] PodiatryStart: 10-16-2020 End: 33-41-3159Htkttts encounter /20/2021 Office Visit Podiatry Juan R Bhagat Jr., DONALD [address] [place] [address] [phone] [facility] Physician [facility] PodiatryStart: 40-68-1784EON TESTINGPAP TESTINGMount St. Mary Hospitaltart: 72-89-5084Ptlbzbumd for malignant neoplasm of cervixMount St. Mary Hospitaltart: 61-98-7007Wgxodlvbn B Vaccines (1 of 3 - 19+ 3-dose series)Hepatitis B Vaccines (1 of 3 - 19+ 3-dose series)[facility] HealthcareStart: 08-54-8714OGGQKYZL VACCINE (1 of 2)SHINGRIX VACCINE (1 of [address]) [facility]art: 38-25-7509Jxbgk microalbumin profileDTAP,TDAP,TD (1 - Tdap)[facility]: 10-10-0884OZCETA PCP TEAM CHRONIC DISEASE VISIT ANNUAL PCP TEAM CHRONIC DISEASE VISITMount St. Mary Hospitaltart: 34-27-9722Oxlhlne ScreeningAnxiety ScreeningMount St. Mary Hospitaltart: 74-39-3052Seprcukrue Screening Depression ScreeningMount St. Mary Hospitaltart: 36-46-1957Vsatysthd C screening Hepatitis C ScreeningOhioHealthStart: 46-54-2049UPJTFXBAV C SCREENINGHEPATITIS C SCREENINGMount St. Mary Hospitaltart: 93-72-3411SGD SCREENINGHIV SCREENINGCleveland ClinicStart: 77-58-0236RDZ screeningHIV ScreeningMount St. Mary Hospitaltart: 53-18-1553OXY screeningHIV ScreeningOhHealthStart: 98-58-6995CIDC TO ADULT TRANSITION ANNUAL ASSESSMENTPEDS TO ADULT TRANSITION ANNUAL ASSESSMENTMount St. Mary Hospitaltart: 76-97-4312Gwdaiau of varicella vaccinationVaricella Vaccines (1 of 2 - 13+ 2-dose series)[facility] HealthcareStart: 75-27-3699BSIJG-19 Vaccine (1)COVID- 19 Vaccine (1)OhioHealthStart: 75-45-0073Wuzmnfeezf screening using PHQ-9 (Patient Health Questionnaire 9) scoreOhioHealthStart: 34-90-9866XHKK TO ADULT TRANSITION INITIAL DISCUSSIONPEDS TO ADULT TRANSITION INITIAL DISCUSSION [facility]: 82-96-4799AEQ VACCINE (1 - 2-dose series)HPV VACCINE (1 - 2-dose series)[facility]: 52-67-5944RXbT/Tdap/Td Vaccines (1 - Tdap) DTaP/Tdap/Td Vaccines (1 - Tdap)[facility] HealthcareStart: 13-29-0409NRFVDYBKAEQG (1 - PCV)PNEUMOCOCCAL (1 - PCV)[facility]: 21-85-9348Wlwslnu and physical examination, annual for health [facility] VisitOhioHealth Start: 60-17-8069OHQ Vaccines (1 of 1 - Standard series)MMR Vaccines (1 of 1 - Standard series)[facility] HealthcareStart: 78-58-1181HEFEXXSMZ B (1 of 3 - 3-dose series)HEPATITIS B (1 of 3 - 3-dose series)[facility]: 1994 Screening for malignant neoplasm of cervixPap SmearOhioHealthStart: 1994 Tetanus vaccinationTetanus: Every 10yrsOhioHealth End: 28-92-2884Ravcvphfjjvtn metabolic 2000 panel - Serum or PlasmaComprehensive metabolic panel Lab Routine Wellness examination 1 Occurrences starting 12/31/2024 until 12/31/2025[facility] SystemComment on above:1 Occurrences starting 12/31/2024 until 12/31/2025Patient EducationConjunctivitis ([place]) [facility] Work Phone: Patient referralK[facility]tering [facility] Work Phone: Progesterone [Mass/volume] in Serum or PlasmaKettering Memorial Hospital Ctr Work Phone: End: 64-53-7834Zqigrzkbjaq TB GoldQuantiferon TB Gold Microbiology Routine Once for 1 Occurrences starting 07/15/2020 until 07/15/2020[facility] Work Phone: comment on above:Once for 1 Occurrences starting 07/15/2020 until 07/15/2020Quantiferon TB GoldQuantiferon TB Gold Microbiology Routine 07/15/2020 4:21 PM [employer] Work Phone: End: 94-91-4953Cvbsdcc profile includes TSH EH7Dluplfd profile includes TSH FT4 Lab Routine Thyroid disease Elena's thyroiditis 1 Occurrences starting 03/20/2024 until 03/20/2025ProMediArk[facility] Science & [facility] Authority Work Phone: comment on above:1 Occurrences starting 03/20/2024 until 03/20/2025 End: 16-46-2372Vrlgzbssp Zoster Antibody, IgGVaricella Zoster Antibody, IgG Lab Routine Once for 1 Occurrences starting 07/15/2020 until 07/15/2020[facility] HospitalComr.[facility] Work Phone: comnjnw on above:Once for 1 Occurrences starting 07/15/2020 until 07/15/2020Varicella Zoster Antibody, IgGVaricella Zoster Antibody, IgG Lab Routine 07/15/2020 4:21 PM [employer] Work Phone: [facility] Immunizations Immunization DateImmunizationNotesCare GxpyqzjuBmrkjkov70-54-4191gbtyouvcs virus vaccine, unspecified formulationHilary Briscoe MD Work Phone: [facility] HospitalShowell - The Simple, Fast and Elegant Tablet Sales App Goudgl78-49-7592qyrysan toxoid, reduced diphtheria toxoid, and acellular pertussis vaccine, adsorbedSamuel Rea [phone]-EmszaSouthview Medical Centerue 87-12-4607kemhddjer virus vaccine, unspecified formulationSiván Lucia [phone]-TfylcUpper Valley Medical Center [id number]-19 ModernaDawn Fitt Other noSoftware [employer] Other [id number] ModernaDawn Fitt Other [place] [employer] Other [id number] virus vaccine, unspecified formulationSiván Lucia [address] [place], [place] 3260808-11-2017tetanus toxoid, reduced diphtheria toxoid, and acellular pertussis vaccine, adsorbedSasue Lucia [facility]06-24-2013meningococcal ACWY vaccine, unspecified formulationSiván Lucia [address] [place], [place] 3260807-23-2007tetanus toxoid, reduced diphtheria toxoid, and acellular pertussis vaccine, adsorbedSamujanell Lucia [facility]12-03-1999DTaP, unspecified formulationSiván Lucia [facility]12-03-1999measles, mumps and rubella virus vaccineSiván Lucia [facility]07-10-1996hepatitis B vaccine, adult dosageSamclara Lucia [facility]07-10-1996measles, mumps and rubella virus vaccineSiván Lucia [facility]10-02-1995DTaP, unspecified formulationSiván Lucia [facility]10-02-1995haemophilus influenzae type b vaccine, PRP-T conjugateSamclara Lucia [facility]08-04-1995DTaP, unspecified formulationSiván Lucia [facility]08-04-1995haemophilus influenzae type b vaccine, PRP-T conjugateSiván Lucia [facility]06-08-1995DTaP, unspecified formulationSiván Lucia [facility]06-08-1995haemophilus influenzae type b vaccine, PRP-T conjugateSiván Lucia [facility]05-11-1995hepatitis B vaccine, adult dosageSamclara Lucia [facility]04-11-1995hepatitis B vaccine, adult dosageSamclara Lucia [facility] Payers DatePayer CategoryPayerPolicy [id number] Care HMO (unspecified) [id number] [facility] - [facility] [place] Member Subscriber Plan / Payer (Effective 2021-Present) Name: JjKeysha ID: [id number] Relation to Subscriber: Self Name: Keysha Gardner Payer ID: Not on file Type: Not on file Address: [address] [place] [id number] MMO SUPERMED PLUS [id number] 2020-Present [phone] [address] [place] [address] [id number] .[id number].3.462730.315 49-07-3912Fcluyzg8.2.840.916017.1.13.159.2.7.3.426156.84131-13-4855Jdnyvbo [id number] 2.16840.1.407472.3.57[id number] 2.16840.1.004272.3.57[id number] 2.840.1.092134.3.579.2.[id number] 2.0.1.195242.3.579.2.[id number] 2.0.1.504168.3.579.2.47903-28-8590Jpjxvtj1532811 2.840.1.078800.3.57[id number] 2.840.1.211648.3.579.2.87522-17-3165Bohreeh2051245 2.840.1.387368.3.579.2.35508-66-4189Lmvgcqz9780923 2.840.1.636670.3.579.2.11831-80-2830Dwbroze2056776 2.840.1.011812.3.579.2.79096-08-6757Uchrpad8545316 2.840.1.582947.3.579.2.28767-49-8565Smysfmw2067599 2.840.1.519208.3.579.2.34758-62-0001Zcquqfu3707281 2.840.1.818420.3.579.2.94895-57-4932Exbrztn3551282 2.840.1.199081.3.579.2.31437-17-5121Rctgaxx5464304 2.840.1.065227.3.579.2.65513-29-7829Svexxyf844543614 2.840.1.045722.3.579.2.87234-82-3950Pguhpnx71102298 2.840.1.068218.3.579.2.75037-51-4044Tvkbwqz94168662 2.0.1.936447.3.579.2.42644-02-7205Qcebvmw25264489 2..1.608216.3.579.2.22315-23-7516Ydcbasp67457553 2.0.1.845542.3.579.2.84556-62-3042Deychcd026609463 2..1.346988.3.579.2.151662-57-3283Tqwxfmy902142386 2..1.671777.3.579.2.338177-13-9348Nziesix639754423 2.0.1.581273.3.579.2.537939-75-1575Asfewdv682263526 2..1.591331.3.579.2.243192-61-7679Emludtr542955294 2..1.211868.3.579.2.238420-04-7551Aiacycl264022023 2..1.772554.3.579.2.817546-78-9191Nrkstbo390753447 2.0.1.563658.3.579.2.616865-28-4103Xrswwhn810315958 2.840.1.756788.3.579.2.600915-17-3574Ccqmazo912576677 2..1.018453.3.579.2.627270-68-8439Cjocvwv647715049 2..1.663430.3.579.2.160368-24-1941Wiewgsw994676271 2..1.042402.3.579.2.393590-08-6492Dfbzdhh417109685 2..1.185935.3.579.2.146187-46-5899Pqgksli25969501 2..1.047771.3.579.2.958458-47-5095Pfhl-stb im155e7m-i1i9-22wn-2g23-v73544zk2[id number] 12007233-0t1w-96j9-41c6-z07b56sd32rp98-74-7776PkmdfttF2322628852Xqewlvw Health [id number] 2dd3l432-m940-8mp3-824l-aklb3i905257Izafxjhdpwxb5756 1..130589.1.13.385.2.7.3.858787.012XsopybdL77251811Lthjhgd86705926 2..1.117135.3.579.2.449Ztryowy88754787 2..1.854426.3.579.2.531 Kcrwddb30082752 2..1.234088.3.579.2.132Oozfipc68207713 2..1.690375.3.579.2.375Rpcbplt49441194 2..1.691046.3.579.2.531 Kvimgec49704875 2..1.034236.3.579.2.824Nwpsrpv31102311 2.16.840.1.669596.3.579.2.074Vozxpiq34734009 2.16.840.1.251468.3.579.2.531 Wmvzres92119494 2.16.840.1.963520.3.579.2.355Cjclxdx71626203 2.16.840.1.990385.3.579.2.531 Social History DateTypeDetailFacilityStart: 79-95-5216Vxs Assigned At BirthNot on [facility] [address] Work Phone: start: 10-02-2020 End: 56-52-1398Zxeywbl smoking status NHISNever smokerOhioHealthStart: 10-02-2020 End: 17-55-8396Uosmdzx use and exposureNever usedOhioHealthStart: 10-02-2020 End: 57-49-8978Gsuzysa intakeCurrent drinker of alcohol (finding)[facility] Start: 88-63-1618Alonine Commentoccasional socialOhioHealthStart: 05-10-2021 End: 85-36-0913Pobldhvt to SARS-CoV-2 (event)Not sureOhioHealthStart: 05-20-2021 End: 81-87-5984Heanzsg intakeCurrent non-drinker of alcohol (finding)[facility]: 54-83-7154Ccb Assigned At [facility]Fe[facility] Hospitaltart: 09-20-2022 End: 74-04-6244Ohq Assigned At [facility] [employer] Other Start: 09-20-2022 End: 68-02-9907Bn alcohol useNo alcohol bksMI-MPYWT-Iipyue [address] Work Phone: Start: 51-15-1138Whfvmwyf Score (1-100), lower number is lower riskNot on [facility]: 08-36-1074Gbggwm identity Identifies as female gender (finding)[facility]: 32-46-1276Zbbuxn orientationHeterosexual (finding)[facility]: 01-23-2023 End: 96-79-8244Kssqbiwmm beverage intakeLifetime non-drinker (finding)[facility] SystemStart: 10-25-2023 End: 76-77-3964Tkaphuitr beverage intakeEx-drinker (finding)[facility] [address] SystemStart: 45-35-4222ExkErvcfa (finding)[facility] CenterNEGATED: Highlighted row--[facility] Work Phone: NEGATED: Highlighted rowStart: NINFHistory of tobacco usePassive smokerSalem Regional Medical Center Medical Equipment Procedure CodeEquipment CodeEquipment Original TextEquipment IdentifierDates Stent Inlay [place] 7fr Taper [place] Green Phreecoat Polymer 28cm Ureteral - [id number]: 04-28-2016 Functional Status ZcfrMxzytsbquyAkztknIdbfnkpg10-44-7594Nhymavjezn StatusN/ZanderOhiohealth Family Medicine Madison HospitalEGATED: Highlighted rowFunctional performance Functional status health issues are not documented DiseaseMercy Medical Center-[facility]erson [facility] [employer] Phone: Mental Status DateAssessmentResultFacilityNEGATED: Highlighted rowCognitive function [Interpretation]Cognitive status health issues are not documented [facility] Phone: Clinical Notes 10-02-2020 to 12-31-2024 Note Date & WypkCqpaBadgickh80-38-9091 History of Present illness Narrative* Dariela Aquino, FIORELLA-DIVYA - 12/31/2024 8:00 AM EST Images from the original note were not included. [address] [address] Subjective: Keysha Gardner is a 29 y.o. female who presents for an Annual Wellness exam. Patient presents to the office for routine wellness. Has history of POTS -has not had issues in years since gaining weight., hashimotos, migraines, PCOS. She is working with fertility clinic at [facility]. She has PCOS that her MIG WELDER is treating. Did see endocrinology at [facility] and did see our endocrinology group. She is due for routine. The following portions of the patient's history were reviewed and updated as appropriate: medications, allergies, past medical history, past surgical history, social history, family history and immunization history Vitals: Vitals: 12/31/24 0805 BP: 110/65 BP Site: Left Arm BP Postition: Sitting BP CUFF SIZE: M (9-13 inches) Pulse: 68 Temp: 36.6 C (97.8 F) TempSrc: Temporal Weight: 78.6 kg (173 lb 3.2 oz) Height: 177.8 cm (5' 10 ) History: Patient Active Problem List Diagnosis Date Noted Polycystic ovary syndrome 12/31/2024 Elena's thyroiditis 08/31/2022 Past Medical History: Diagnosis Date Arrhythmia has had workup by structural heart for POTS 2018-negative, on metoprolol as needed Asthma Elena's thyroiditis Hypothyroid Infertility, female Migraine PCOS (polycystic ovarian syndrome) Visual impairment contacts Past Surgical History: Procedure Laterality Date SECTION 2022 EXCISION LESION melanoma excised x2 FOOT SURGERY Left 2007 INCISION DRAINAGE BREAST Left 01/26/2023 Performed by Jose Washington DO at [facility] Right 2017 UPJ obstruction Family [...] M (9-13 inches)) Pulse 68 Temp 36.6 C (97.8 F) (Temporal) Ht 177.8 cm (5' 10 ) Wt 78.6 kg (173 lb 3.2 oz) BMI 24.85 kg/m Physical Exam Constitutional: Appearance: She is well-developed. [...] Psychiatric: Mood and Affect: Mood normal. Assessment/Plan: Keysha was seen today for well adult. Diagnoses and all orders for this visit: Wellness examination Polycystic ovary syndrome Elena's thyroiditis Plan Outpatient Medications Prior to Visit [...] ARIANA Landrum 12/31/24 0844 documented in this encounterSalem Regional Medical Center10-20-2025 History of Present illness Narrative* Wendi Gandhi LPN - 12/16/2024 3:10 PM EDT Reason for Appointment: Patient ID: Keysha Gardner is a 29 y.o. female who presents for Infertility (Pt present today followup fertility.) Patient presents today for Consult appointment. MEDICATIONS Current Outpatient Medications Medication Instructions levothyroxine (SYNTHROID) 200 mcg, Oral, Daily before breakfast levothyroxine (SYNTHROID, LEVOXYL) 175 mcg, Oral, Daily before breakfast metFORMIN XR (GLUCOPHAGE-XR) 500 mg, Oral, Daily with evening meal, Do not crush, chew, or split. metoclopramide (REGLAN) 10 mg, Oral, 3 times daily before meals, Take 1 tablet by mouth 30 minutes prior to meals 3 times daily as needed for nausea. MV-Min-Fe Fum-FA-DHA ( 1 PO) Oral promethazine (PHENERGAN) 12.5 mg, Oral, Every 6 hours PRN, Take 1 tablet by mouth every 6 hours as needed for nausea. 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 08/31/2022 Right flank pain 09/26/2014 Ureteropelvic junction (UPJ) obstruction 04/28/2016 Oligohydramnios ([facility]) 11/30/2022 6 weeks follow-up ([facility]) 01/17/2023 Amenorrhea 01/23/2024 Endometriosis 07/23/2024 Hyperthyroidism 07/23/2024 History of miscarriage 07/23/2024 Resolved Ambulatory Problems Diagnosis Date Noted Nausea/vomiting in ([facility]) 08/01/2022 Past Medical History: Diagnosis Date Asthma ([facility]) Elena's disease Hormone imbalance Hypothyroid Menstrual irregularity Migraine Tachycardia Thyroid disease HISTORY PAST MEDICAL HISTORY SOCIAL HISTORY Past Medical History: Diagnosis Date Asthma ([facility]) Elena's disease History of miscarriage Hormone imbalance Hypothyroid Menstrual irregularity Migraine Tachycardia Thyroid disease Social History Tobacco Use Smoking status: Never Smokeless tobacco: Never Substance Use Topics Alcohol use: Never Drug use: Never FAMILY HISTORY Family History Problem Relation Name Age of Onset Heart attack Father NSTEMI Pulmonary embolism Father from COVID Asthma Sister Asthma Brother SURGICAL HISTORY Past Surgical History: Procedure Laterality Date SECTION, LOW TRANSVERSE 12/12/2022 FOOT SURGERY Left joint cleanout KIDNEY SURGERY Right PAP SMEAR 01/10/2022 negative REVIEW OF SYSTEMS Review of Systems: Review of Systems Constitutional: Negative. HENT: Negative. Eyes: Negative. Respiratory: Negative. Cardiovascular: Negative. Gastrointestinal: Negative. Genitourinary: Negative. Musculoskeletal: Negative. Skin: Negative. Neurological: Negative. All other systems reviewed and are negative. Hematological: Negative. Endocrine: Negative. Allergic/Immunologic: Negative. OBJECTIVE Objective: Physical Exam Constitutional: Appearance: Normal appearance. She is well-developed. Cardiovascular: Rate and Rhythm: Normal rate and regular rhythm. Pulmonary: Effort: Pulmonary effort is normal. Breath sounds: Normal breath sounds. Abdominal: General: Bowel sounds are normal. There is no distension. Palpations: Abdomen is soft. Tenderness: There is no abdominal tenderness. There is no guarding or rebound. Musculoskeletal: General: No swelling. Normal range of motion. Right lower leg: No edema. Left lower leg: No edema. Neurological: Mental Status: She is alert and oriented to person, place, and time. Skin: General: Skin is warm and dry. Psychiatric: Mood and Affect: Mood normal. Behavior: Behavior normal. Vitals and nursing note reviewed. Exam conducted with a senior sales manager present. Vitals: Estimated body mass index is 24.68 kg/m as calculated from the following: Height as of this encounter: 5' 10 . Weight as of this encounter: 172 lb. BP: 122/72 Patient's last menstrual period was 12/07/2024 (exact date). Assessment/Plan ICD-10-CM 1. Elena's thyroiditis E06.3 2. Infertility counseling Z31.69 Patient presents today to discuss fertility. Discussed semen analysis and HSG. Will switch to Clomid with next cycle. Will refer to [facility] and in the meantime will continue fertility medication. Will start Clomid at 100mg and Metformin will be increase to 1,000 mg daily. Patient will discuss HSG with spouse and will reach out to office if she decides that she would like to have it done. Documented by Wendi Gandhi LPN on behalf of: Gigi Tafoya DO documented in this encounterSaint Luke's Health SystemRcfkqhnmxk06-53-4475 History of Present illness Narrative* Waleska Arizmendi RN - 03/20/2024 2:30 PM EST Patient is here as a new patient consult for Dr Briscoe for referral PCOS and Eelna's. Patient was previously seen at the [facility], but insurance no longer is accepted. Patient diagnosed in 2000 with Elena's and 2020 with PCOS. Thyroid labs recently completed. Result in Epic. Do you have any thyroid related symptoms? Hypo: Constipation No Fatigue No Dry skin No Mental fatigue/ slow cognition/ word finding No Cold intolerance No Hyper: Tachycardia No Tremors/ jittery No Sweating No Diarrhea No Heat intolerance No Chief complaint: PCOS Biggest concern regarding the PCOS? Fetility Desiring fertility? Yes Last Menstrual Period? 03/11/24 * Hilary Briscoe MD - 03/20/2024 2:30 PM EST [facility]- PCOS Visit Keysha Gardner is a 28 y.o. with elena's thyroiditis and history of PCOS. The patient presents today to establish care. She was following for many years with endocrine at [facility] but her insurance no longer covers that provider. Elena's with thyroid nodule: She was diagnosed around 2000 at age 5. She followed with pediatric endo who started levothyroxine and followed thyroid US due to lump in her neck. No biopsies needed. She began following in [address] Langford with [facility]. Levothyroxine varied between 137 and 175 mcg. Thyroid US during this time showed heterogeneity with one 2 mm nodule in the right lower lobe which was not seen on later US in 2015. She was diagnosed with PCOS in 2020 as she was trying to become . By 2021, her thyroid dose increased to 200 mcg daily. Repeat US did not show any nodules. She had a miscarriage this year with TSH levels normal to slightly over treated in the early weeks of . She became again in 2022 and required 150 mcg initially up to 175 mcg 8 tablets per week during . She presents today to establish care. She feels well. Some fatigue. Current dose: Levothyroxine 200 mcg 6.5 tablets per week. She takes this in the AM on an empty stomach and waits at least 30 minutes before eating. Patient denies chest pain, vision changes, SOB, Nausea/ vomiting, numbness/ tingling/ pain in extremities, foot pain or ulcerations or edema. ROS otherwise negative if not mentioned above. Past Medical History: Diagnosis Date Arrhythmia has had workup by structural heart for POTS 2018-negative, on metoprolol as needed Asthma Elena's thyroiditis Hypothyroid Infertility, female Migraine PCOS (polycystic ovarian syndrome) Visual impairment contacts Past Surgical History: Procedure Laterality Date SECTION 2022 EXCISION LESION melanoma excised x2 FOOT SURGERY Left 2007 INCISION DRAINAGE BREAST Left 01/26/2023 Performed by Jose [facility] DO at [facility] Right 2017 UPJ obstruction Family History Problem Relation Age of Onset No Known Problems Mother Heart attack Father Pulmonary embolism Father Hypothyroidism Father Lymphoma Maternal Grandmother Liver cancer Paternal Grandmother Social History Socioeconomic History Marital status: Spouse name: Not on file Number of children: Not on file Years of education: Not on file Highest education level: Not on file Occupational History Not on file Tobacco Use Smoking status: Never Passive exposure: Never Smokeless tobacco: Never Vaping Use Vaping status: Never Used Substance and Sexual Activity Alcohol use: Not Currently Drug use: Not Currently Sexual activity: Not Currently Partners: Male control/protection: None Other Topics Concern Not on file Social History Narrative Not on file Social Drivers of Health Financial Resource Strain: Not on file Food Insecurity: No Food Insecurity (03/20/2024) Hunger Screening Food Insecurity - Worry: Never True Food Insecurity - Inability: Never True Transportation Needs: Not on file Physical Activity: Not on file Stress: Not on file Social Connections: Not on file Interpersonal Safety: Not on file Housing Instability: Not on file Current Outpatient Medications: albuterol (PROVENTIL HFA;VENTOLIN HFA) 90 mcg/actuation inhaler, Inhale 2 puffs every 6 (six) hoursas needed for wheezing., Disp: , Rfl: albuterol (PROVENTIL,VENTOLIN) 2.5 mg /3 mL (0.083 %) nebulizer solution, Inhale 3 mL (2.5 mg total) by nebulization daily as needed for shortness of breath or wheezing., Disp: , Rfl: aspirin 81 mg, Take 1 tablet (81 mg total) by mouth in the morning., Disp: , Rfl: folic acid-vit B6-vit B12 (FOLBEE) 2.5-25-1 mg tablet, Take 1 tablet by mouth in the morning., Disp: , Rfl: metFORMIN (GLUMETZA) 500 MG (MOD) 24 hr tablet, Take 1 tablet (500 mg total) by mouth Daily before evening meal., Disp: , Rfl: vit no.124/iron/folic ( VITAMIN ORAL), Take 1 tablet by mouth in the morning., Disp: , Rfl: levothyroxine (SYNTHROID, LEVOTHROID) 200 MCG tablet, Take 1 tablet (200 mcg total) by mouth in themorning. Except only half tablet on Sundays. 6.5 tablets total per week., Disp: 84 tablet, Rfl: 3 progesterone (ENDOMETRIN) 100 mg vaginal insert, Insert 2 tablets (200 mg total) into the vagina inthe morning and 2 tablets (200 mg total) before bedtime. (Patient not taking: Reported on 03/20/2024), Disp: , Rfl: There are no hospital problems to display for this patient. EXAM: Blood pressure 135/87, pulse 108, height 177.8 cm (5' 10 ), weight 77.6 kg (171 lb), last menstrualperiod 03/11/2024, not currently . Body mass index is 24.54 kg/m . General- awake/ alert/ pleasant Cardiac: RRR Respiratory: CTAB Abdomen: soft, non-distended Extremities: appropriate coloration, bilateral pulses, no rashes visible Neuro: appropriate gait, appropriate mentation Assessment and Plan Keysha Gardner is a 28 y.o. with Elena's thyroiditis and PCOS. Continue current dose. TSH and fT4 levels ordered. Adjust accordingly Thyroid US ordered. If no nodules, no need for further testing. We discussed hypothyroidism and management for any future . Follow up annually HILARY BRISCOE MD [facility] documented in this encounterBethesda North HospitalDIY [id number] Evaluation + Plan note Diagnostic Tests Pending * CBC w/ Auto Diff 01/15/24 * Comprehensive Metabolic Panel 01/15/24 * Lipid Panel 01/15/24 [facility] 08-19-2024 History of Present illness Narrative* Gigi Tafoya DO - 10/16/2023 3:20 PM EDT Reason for Appointment: Patient ID: Keysha Gardner is a 28 y.o. female who presents for Med Refill Patient presents today for Acute Visit. MEDICATIONS Current Outpatient Medications Medication Instructions levothyroxine (SYNTHROID, LEVOXYL) 175 mcg, Oral, Daily before breakfast metoclopramide (REGLAN) 10 mg, Oral, 3 times daily before meals, Take 1 tablet by mouth 30 minutes prior to meals 3 times daily as needed for nausea. MV-Min-Fe Fum-FA-DHA ( 1 PO) Oral promethazine (PHENERGAN) 12.5 mg, Oral, Every 6 hours PRN, Take 1 tablet by mouth every 6 hours as needed for nausea. 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 (CMS/HCC) 08/31/2022 Right flank pain 09/26/2014 Ureteropelvic junction (UPJ) obstruction 04/28/2016 Oligohydramnios 11/30/2022 6 weeks follow-up 01/17/2023 Resolved Ambulatory Problems Diagnosis Date Noted Nausea/vomiting in 08/01/2022 Past Medical History: Diagnosis Date Asthma (CMS/HCC) Elena's disease (CMS/HCC) History of miscarriage Hormone imbalance Hypothyroid (CMS/HCC) Menstrual irregularity Migraine (CMS/HCC) Tachycardia Thyroid disease (CMS/HCC) HISTORY PAST MEDICAL HISTORY SOCIAL HISTORY Past Medical History: Diagnosis Date Asthma (CMS/HCC) Elena's disease (CMS/HCC) History of miscarriage Hormone imbalance Hypothyroid (CMS/HCC) Menstrual irregularity Migraine (CMS/HCC) Tachycardia Thyroid disease (CMS/HCC) Social History Tobacco Use Smoking status: Never Smokeless tobacco: Never Substance Use Topics Alcohol use: Never Drug use: Never FAMILY HISTORY Family History Problem Relation Name Age of Onset Heart attack Father NSTEMI Pulmonary embolism Father from COVID Asthma Sister Asthma Brother SURGICAL HISTORY Past Surgical History: Procedure Laterality Date SECTION, LOW TRANSVERSE 12/12/2022 FOOT SURGERY Left joint cleanout KIDNEY SURGERY Right PAP SMEAR 01/10/2022 negative REVIEW OF SYSTEMS Review of Systems: Review of Systems All other systems reviewed and are negative. OBJECTIVE Objective: Physical Exam Constitutional: Appearance: Normal appearance. She is well-developed. Cardiovascular: Rate and Rhythm: Normal rate and regular rhythm. Pulmonary: Effort: Pulmonary effort is normal. Breath sounds: Normal breath sounds. Abdominal: General: Bowel sounds are normal. There is no distension. Palpations: Abdomen is soft. Tenderness: There is no abdominal tenderness. There is no guarding or rebound. Musculoskeletal: General: No swelling. Normal range of motion. Right lower leg: No edema. Left lower leg: No edema. Neurological: Mental Status: She is alert and oriented to person, place, and time. Skin: General: Skin is warm and dry. Psychiatric: Mood and Affect: Mood normal. Behavior: Behavior normal. Vitals and nursing note reviewed. Exam conducted with a senior sales manager present. Vitals: Estimated body mass index is 24.39 kg/m as calculated from the following: Height as of this encounter: 5' 10 . Weight as of this encounter: 170 lb. BP: 120/78 No LMP recorded. ASSESSMENT & PLAN Patient presents today to discuss medication refills for metformin. Patient voiced that she has had2 miscarriages so far and discussed progesterone 200mg vaginal suppositories inserted twice daily. Patient aware that as soon as she finds out she is then she will reach out to office to have medication sent. Will prescribe Metformin XR for patient to start taking again. Patient advised totake Baby aspirin 81mg daily. 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 Increased synthroid to 200mcg daily. Documented by Wendi Gandhi LPN on behalf of: Gigi Tafoya DO documented in this encounterSaint Luke's Health [id number] NoteHNO ID: [id number] Author: JOSE LEROY MD Service: ? Author Type: Physician Type: Progress Notes Filed: 07/12/2023 15:23 Note Text: . [facility] General Endocrinology - [address], [address] [place] [address] Endocrinology - [address], [address] [place] [address] Patient's name: Keysha Gardner Patient's date of : 1995 Date of encounter: 06/12/2023 History of present illness: Keysha Gardner is a 28 year old female who presents for follow up of an endocrinology issue. Thyroid gland disorder: Previous history: 2000: Around this time, age ~5 (first grade) was found to have hypothyroidism. Per patient, policy adviser felt lump in neck . 2001: Ultrasound of thyroid, at outside hospital: I dont have this to review. 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 Started on a dose of levothyroxine. [id number]: Followed by pediatric endocrinology. Multiple ultrasound studies. No fine needle aspiration biopsy , per patient. 04/2014: Started oral contraceptive pills. 07/2014: Initial consultation with me. TSH 3.960 (0.358-3.740 uIU/mL), free T4 1.52 [...] (0.76-1.46 ng/dL), on levothyroxine 150 mcg daily. 07/2015: TSH 0.865 (0.358-3.740 uIU/mL), free T4 1.45 (0.76-1.46 ng/dL), on levothyroxine 150 mcg daily. 07/2015: Ultrasound, intra-office: Heterogeneous gland. Right lobe 50.6 x 15.0 x 11.4 mm (length x width x depth) Left lobe 48.7 x 15.2 x 8.1 mm (length x width x depth) Isthmus 2.1 mm depth. No distinct nodules or cysts. No suspicious nodes in neck levels (bilateral) , VII, IV, III, IIa, IIb. 05/2016: TSH 0.376 (0.358-3.740 uIU/mL), free T4 1.50 (0.76-1.46 ng/dL), free T3 3.2 (2.2-4.0 pg/mL), on levothyroxine 150 mcg daily. Some tachycardia issues. I lowered her to levothyroxine 137 mcg daily. 05/2016: Thyroid Stimulating Immunoglobulin (TSI) 43 (<150 %), this was checked due to symptoms. 09/2016: TSH 2.560 (0.358-3.740 uIU/mL), free T4 1.33 (0.76-1.46 ng/dL), free T3 2.8 (2.2-4.0 pg/mL), on levothyroxine 137 mcg daily. Now with some fatigue issues, and cardiac issues resolved. Patient wanted re-trial of the 150 mcg dose. I changed her to levothyroxine 150 mcg daily. 06/2017: TSH 1.090 (0.358-3.740 uIU/mL), free T4 1.74 (0.76-1.46 ng/dL), free T3 3.0 (2.2-4.0 pg/mL), on levothyroxine 150 mcg daily. 06/2018: TSH 3.330 (0.358-3.740 uIU/mL), free T4 1.50 (0.76-1.46 ng/dL), free T3 2.7 (2.2-4.0 pg/mL), on levothyroxine 150 mcg daily. I increased her dose to levothyroxine 175 mcg daily. 08/2018: TSH 0.435 (0.400 - 5.500 uU/mL), free T4 1.8 (0.9-1.7 ng/dL), free T3 3.1 (2.3-4.1 pg/mL), on levothyroxine 175 mcg daily. This was a lab appointment due to symptoms. 05/2019: TSH 0.19 (0.44-3.98 mIU/L), free T4 1.16 (0.61-1.12 ng/dL), free T3 3.2 (2.3-4.2 pg/mL), on levothyroxine 175 mcg daily. I lowered her to levothyroxine 150 mcg daily. 08/2019: TSH 5.220 (0.270-4.200 uIU/mL), on levothyroxine 150 mcg daily. I changed her to levothyroxine 150 mcg x 7.5 pills per week (mean dose 161 mcg daily.) this was a lab appointment due to symptoms. 10/2019: TSH 1.420 (0.270-4.200 uU/mL), free T4 2.5 (0.9-1.7 ng/dL), on levothyroxine 150 mcg x 7.5 pills per week (mean dose 161 mcg daily.) 12/2019: TSH 0.276 (0.270-4.200 uU/mL), free T4 2.2 (0.9-1.7 ng/dL), on levothyroxine 150 mcg x 7.5 pills per week, mean daily dose 161 mcg. 05/2020: TSH 0.555 (0.270-4.200 uIU/mL), free T4 2.1 (0.9-1.7 ng/dL), free T3 3.5 (2.3-4.1 pg/mL), on levothyroxine 150 mcg x 7.5 pills per week, mean dose 161 mcg. 05/2020: [facility]: Right lobe 48.9 x 12.0 x 13.3 mm (length x width x depth), Left lobe 49 x 14.5 x 11.0 mm (length x width x depth), Isthmus 2.3 mm (length x width x depth). Heterogeneity in both lobes. No distinct nodules. 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 04/2021: TSH 9.980 (0.270-4.200 uIU/mL), free T4 1.5 (0.9-1.7 ng/dL), Total T4 8.5 (5.5-10.2 ug/dL), free T3 3.0 (2.3-4.1 pg/mL), on levothyroxine 150 mcg x 7.5 pills per week. I increased her to levothyroxine 200 mcg (more content not included)...[facility]04-15-2024 Instructions* Patient Instructions* Jose Leroy MD - 06/12/2023 9:22 AM EDT Levothyroxine / Synthroid use guidelines: Levothyroxine (brand names Synthroid, Levoxyl, Unithroid, or generic levothyroxine) is best taken all by itself, and with an empty stomach. The three best times to take the levothyroxine are: 1. In the morning (ideally the first thing you do when you wake up). See coffee issue, below. 2. At bedtime (if no other medicines or supplements at that time, and few hours after last food.) 3. In the middle of the night, when you wake up to urinate. This may be the ideal time, as it allows multiple hours prior to any other beverage/food or pill(s). Take the levothyroxine with water (and water only, no other type of beverages). Take one hour before any coffee, as coffee has been shown to interfere with the absorption of the levothyroxine. Take (at least) one hour prior to any other medicines. I prefer three hours, especially if the medication or supplement has iron or calcium. Take on empty stomach (one hour prior to food or three (or more) hours after a meal.) If you forget to take a dose, then its is ok to take two pills the next day. documented in this encounterProv[facility]04-[facility]24 History of Present illness Narrative* Jose Leroy MD - 06/12/2023 9:02 AM EDT Images from the original note were not included. . [facility] General Endocrinology - [place] [address] [facility] [facility], [address] Endocrinology - [address], [address] [place], [place] [address] Patient's name: Keysha Gardner Patient's date of : 1995 Date of encounter: 06/12/2023 History of present illness: Keysha Gardner is a 28 year old female who presents for follow up of an endocrinology issue. Thyroid gland disorder: Previous history: 2000: Around this time, age ~5 (first grade) was found to have hypothyroidism. Per patient, policy adviser felt lump in neck . 2000: Ultrasound of thyroid, at outside hospital: I dont have this to review. 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 Started on a dose of levothyroxine. [id number]: Followed by pediatric endocrinology. Multiple ultrasound studies. No fine needle aspiration biopsy , per patient. 04/2014: Started oral contraceptive pills. 07/2014: Initial consultation with me. TSH 3.960 (0.358-3.740 uIU/mL), free T4 1.52 (0.76-1.46 ng/dL), free T3 2.4 (2.2-4.0 pg/ml), on levothyroxine 137 mcg daily. I increased to levothyroxine 150 mcgdaily. 07/2014: Thyroid peroxidase antibodies 822.0 (0.0-60.0 IU/ml), [...] (0.76-1.46 ng/dL), on levothyroxine 150 mcg daily. 07/2015: TSH 0.865 (0.358-3.740 uIU/mL), free T4 1.45 (0.76-1.46 ng/dL), on levothyroxine 150 mcg daily. 07/2015: Ultrasound, intra-office: Heterogeneous gland. Right lobe 50.6 x 15.0 x 11.4 mm (length x width x depth) Left lobe 48.7 x 15.2 x 8.1 mm (length x width x depth) Isthmus 2.1 mm depth. No distinct nodules or cysts. No suspicious nodes in neck levels (bilateral) , VII, IV, III, IIa, IIb. 05/2016: TSH 0.376 (0.358-3.740 uIU/mL), free T4 1.50 (0.76-1.46 ng/dL), free T3 3.2 (2.2-4.0 pg/mL), on levothyroxine 150 mcg daily. Some tachycardia issues. I lowered her to levothyroxine 137 mcg daily. 05/2016: Thyroid Stimulating Immunoglobulin (TSI) 43 (<150 %), this was checked due to symptoms. 09/2016: TSH 2.560 (0.358-3.740 uIU/mL), free T4 1.33 (0.76-1.46 ng/dL), free T3 2.8 (2.2-4.0 pg/mL), on levothyroxine 137 mcg daily. Now with some fatigue issues, and cardiac issues resolved. Patientwanted re-trial of the 150 mcg dose. I changed her to levothyroxine 150 mcg daily. 06/2017: TSH 1.090 (0.358-3.740 uIU/mL), free T4 1.74 (0.76-1.46 ng/dL), free T3 3.0 (2.2-4.0 pg/mL), on levothyroxine 150 mcg daily. 06/2018: TSH 3.330 (0.358-3.740 uIU/mL), free T4 1.50 (0.76-1.46 ng/dL), free T3 2.7 (2.2-4.0 pg/mL), on levothyroxine 150 mcg daily. I increased her dose to levothyroxine 175 mcg daily. 08/2018: TSH 0.435 (0.400 - 5.500 uU/mL), free T4 1.8 (0.9-1.7 ng/dL), free T3 3.1 (2.3-4.1 pg/mL), on levothyroxine 175 mcg daily. This was a lab appointment due to symptoms. 05/2019: TSH 0.19 (0.44-3.98 mIU/L), free T4 1.16 (0.61-1.12 ng/dL), free T3 3.2 (2.3-4.2 pg/mL), onlevothyroxine 175 mcg daily. I lowered her to levothyroxine 150 mcg daily. 08/2019: TSH 5.220 (0.270-4.200 uIU/mL), on levothyroxine 150 mcg daily. I changed her to levothyroxine 150 mcg x 7.5 pills per week (mean dose 161 mcg daily.) this was a lab appointment due to symptoms. 10/2019: TSH 1.420 (0.270-4.200 uU/mL), free T4 2.5 (0.9-1.7 ng/dL), on levothyroxine 150 mcg x 7.5 pills per week (mean dose 161 mcg daily.) 12/2019: TSH 0.276 (0.270-4.200 uU/mL), free T4 2.2 (0.9-1.7 ng/dL), on levothyroxine 150 mcg x 7.5pills per week, mean daily dose 161 mcg. 05/2020: TSH 0.555 (0.270-4.200 uIU/mL), free T4 2.1 (0.9-1.7 ng/dL), free T3 3.5 (2.3-4.1 pg/mL), on levothyroxine 150 mcg x 7.5 pills per week, mean dose 161 mcg. 05/2020: [facility]: Right lobe 48.9 x 12.0 x 13.3 mm (length x width x depth), Left lobe 49 x14.5 x 11.0 mm (length x width x depth), Isthmus 2.3 mm (length x width x depth). Heterogeneity in both lobes. No distinct nodules. 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 04/2021: TSH 9.980 (0.270-4.200 uIU/mL), free T4 1.5 (0.9-1.7 ng/dL), Total T4 8.5 (5.5-10.2 ug/dL),free T3 3.0 (2.3-4.1 pg/mL), on levothyroxine 150 mcg x 7.5 pills per week. I increased her to levothyroxine 200 mcg daily. 07/21/2021: TSH 0.1 at outside hospital. She was planning on starting Letrozole. I lowered the levothyroxine to 200 mcg x 6 pills per week. 08/2021: TSH 0.018 (0.270-4.200 uIU/mL), free T4 2.2 (0.9-1.7 ng/dL), on levothyroxine 200 mcg x 6 pills per week. early , I lowered her to 200 mcg x 5.5 pills per week. 10/10/2021: Around this time had spontaneous . G1(?) or 2, P0 Ab1-2 10/19/2021: TSH 11 at outside hospital. I had her return to 200 mcg daily. 11/2021: TSH 0.03 (0.49-4.67 uIU/mL), free T4 2.04 (0.61-1.60 ng/dL, free T3 4.40 (2.50-3.90 pg/mL), while on levothyroxine 200 mcg daily. I lowered her to levothyroxine 175 mcg daily. 02/16/2022: TSH 0.02 (0.34-5.60 mIU/L), free T4 2.08 (0.58-1.64 ng/dL), at [facility]. I reduced her to levothyroxine 175 mcg x 6.5 pills per week. 03/2022: TSH 0.12 (0.49-4.67 uIU/mL), free T4 1.96 (0.61-1.60 ngdl) while on 175 mcg x 6.5 pills perweek. I lowered her to levothyroxine 150 mcg daily. 05/09/2022: TSH 0.86 (0.49-4.67 uIU/mL), while on levothyroxine 150 mcg daily, #2, week ~5 05/11/2022: Notified me of . 05/28/2022: TSH 2.52 (0.49-4.67 uIU/mL), while on levothyroxine 150 mcg daily, #2, week ~8. 05/31/2022: I increased her to levothyroxine 175 mcg daily. 08/25/2022: TSH 2.13 at 19 w . on levothyroxine 175 mcg daily. I had her increase to levothyroxine 175 mcg x eight total pills per week. 09/16/2022: TSH 0.07 (0.49-4.67 uIU/mL), while on levothyroxine at 175 mcg x eight total pills per week. 09/20/2022: I reduced her to seven and one-half total pills per week. 10/17/2022: TSH 0.58 at outside lab. 11/2022: Childbirth (first live ). . Interval history: The patient now returns for re-evaluation and follow-up. The above history was re-confirmed. When asked how she feels overall, she responded somedays really good, somedays not so good Now post 6 months. Baby doing well. Some overnights with the baby. She is on levothyroxine, as a monotherapy. The levothyroxine dose is 175 micrograms, seven and one-half total pills per week. The levothyroxine is administered when she wakes up to start the day, with water. Other meds taken at the time of the levothyroxine include: isolated . Otherwise, the next time any meds are taken is typically at least multiple hours later. Coffee: One of more hours later. Food: One of more hours later. Compliance with the levothyroxine is reported as good. Anterior neck compression symptoms: No overt or daily dysphagia of solids, liquids or pills. No overt globus sensation in neck. No new or existing hoarseness. No anterior neck compression / feeling of external pressure. Denies clearing of throat. Denies cough. Biotin use (vitamin B-7) : Use of zayb-jgx-iuhpnfh, high dose, biotin supplement: None. Use of Maio-Ktca-Rtay vitamins, or similar formulation with high-dose biotin: None. Use of B-complex vitamin preparations with high-dose biotin: None. Use of gfel-qdt-jxmdbiv leave-in hair conditioners that contain biotin: None. Pre- vitamin has 30 mcg . Other endocrine history: 05/2015: random glucose 85 mg/dL, 05/2016: HbA1c 5.2% at outside lab. 06/18/2016: plasma fractionated metanephrine 20 (0-62 pg/mL), normetanephrine 38 (0-145 pg/mL), Allergies, medications, medical and surgical history, family history and social history, and problem list reviewed. Preferred pharmacy for the medications I prescribe (or may prescribe) is: [facility]/pharmacy [id number] [place] [address] [address] [facility] [phone] Review of Systems Review of Systems Constitutional: Positive for malaise/fatigue (some days. other days ok). Respiratory: Negative for shortness of breath. Cardiovascular: Negative for chest pain and palpitations. Musculoskeletal: Negative for joint pain. Neurological: Negative for tremors. Endo/Heme/Allergies: See the history of present illness section Psychiatric/Behavioral: The patient is not nervous/anxious. 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 Migraine, intractable Paroxysmal spells UPJ (ureteropelvic junction) obstruction PAST SURGICAL HISTORY Procedure Laterality Date FOOT SURGERY HX Right 2008 foot surgery for infection from nail KIDNEY SURGERY HX R kidney Pyeloplasty FAMILY HISTORY Problem Relation Age of Onset Gall Stones Mother Asthma Sister Heart Sister Dysrhythmia, tonya issue Lymphoma Maternal Grandmother Systemic Lupus Erythematosus Maternal Grandmother Crohn's Disease Maternal Grandmother Thyroid Maternal Grandfather Unclear thyroid issue Asthma Maternal Grandfather Diabetes Paternal Grandmother Diabetes Paternal Grandfather Social History Tobacco Use Smoking status: Never Smokeless tobacco: Never Vaping Use Vaping Use: Never used Substance Use Topics Alcohol use: No Drug use: No Medications Current Outpatient Medications Medication Sig Dispense Refill levothyroxine (SYNTHROID) 175 mcg tablet Take 1 tablet by mouth once daily. (Patient taking differently: Take 175 mcg by mouth as directed. 7.5 tablets per week) 90 tablet 3 vit no.124/iron/folic ( VITAMIN ORAL) Take by mouth. metoprolol tartrate, short acting, (LOPRESSOR) 25 mg tablet Take 25 mg by mouth as needed. albuterol (PROVENTIL) 2.5 mg /3 mL (0.083 %) nebulizer solution Use 2.5 mg via nebulizer as needed. albuterol HFA (PROVENTIL HFA, VENTOLIN HFA) 90 mcg/actuation inhaler Inhale 2 Puffs as instructed every 6 hours. 1 Inhaler 0 No current facility-administered medications for this visit. Physical Examination and Vitals 06/12/23 0900 BP: 127/77 Pulse: 87 Weight: 78 kg (172 lb) Height: 177.8 cm (5' 10 ) Body Mass Index (BMI): Body mass index is 24.68 kg/m . Last 5 Encounter Wt Readings: Date: Wt: 04/14/2022 70.7 kg (155 lb 14.4 oz) 12/03/2021 72.5 kg (159 lb 12.8 oz) 05/20/2021 70.1 kg (154 lb 9.6 oz) 06/03/2020 68.1 kg (150 lb 3.2 oz) 07/09/2018 68.7 kg (151 lb 8 oz) Physical Exam Vitals reviewed. Constitutional: Appearance: She is not toxic-appearing or diaphoretic. HENT: Head: Normocephalic and atraumatic. Eyes: General: No scleral icterus. Neck: Thyroid: No thyroid mass, thyromegaly or thyroid tenderness. Cardiovascular: Rate and Rhythm: Normal rate and regular rhythm. Pulmonary: Effort: Pulmonary effort is normal. No respiratory distress. Breath sounds: Normal breath sounds. Abdominal: Tenderness: There is no right CVA tenderness or left CVA tenderness. Lymphadenopathy: Head: Right side of head: No submandibular, tonsillar or preauricular adenopathy. Left side of head: No submandibular, tonsillar or preauricular adenopathy. Cervical: No cervical adenopathy. Skin: General: Skin is warm. Neurological: Mental Status: She is alert and oriented to person, place, and time. Motor: Tremor (slight tremor of outstretched RIGHT hand. left ok.) present. Psychiatric: Mood and Affect: Mood and affect normal. Judgment: Judgment normal. Assessment and Plans: 1. 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 Post 5 months Euthyroid exam today. planning: may try again later in 2023. Reviewed issues with hypothyroidism and levothyroxine. She will contact if prior to next appointment. I will check her thyroid hormone levels. Once those are reviewed, then I will adjust the dose(s) asneeded. Will send an electronic prescription to local pharmacy in 90 day supplies, once data reviewed. Preferred pharmacy for the medications I prescribe (or may prescribe) is: [facility]/pharmacy #[id number] [place] [address] [address] [facility] [phone] She will do her labs at her [facility] location due to insurance. - THYROID STIMULATING HORMONE; Future - T4 FREE/FREE THYROXINE; Future - T3, FREE; Future 2. Encounter for medication management Levothyroxine 3. Long-term current use of levothyroxine Levothyroxine. I reviewed the proper use of levothyroxine products. The patient is doing proper administration of levothyroxine. 4. Elena's disease 5. Family history of thyroid disease Jose Leroy MD [facility] Endocrinology - [place] documented in [facility]23 Miscellaneous Notes* Telephone Encounter - Kareen Vasquez - 09/21/2022 2:37 PM EDT Referral made and pt to call financial clearance to schedule in October becky Vasquez September 21, 2022 2:37 PM * Telephone Encounter - Jose Leroy MD - 09/20/2022 4:37 PM EDT Virtual visit done today. Follow up: -Please help this patient get a follow-up appointment with me. -Please make that appointment for (around) 2 months. Mid- October - virtual visit (she [place] way from here) -Type of appointment: 30 minute time slot. 15 min if that is the only available. -Reason for follow up appointment: follow up hypothyroidism in Jose Leroy MD documented in this encounterProvidence [facility]07-25-2023 NoteHNO ID: [id number] Author: Jose Leroy MD Service: ? Author Type: Physician Type: Progress Notes Filed: 09/20/2022 4:36 PM Note Text: . [facility] Endocrinology - [place] [address] [facility], [address] [place], [place] [address] [place] [address] Endocrinology - [address], [address] [place], [place] [address] Patient's name: Keysha Gardner Patient's date of : 1995 Date of encounter: 09/20/2022 Virtual Visit Progress Note This is a Virtual encounter initiated for an established patient, parent or guardian not originating from a related Evaluation AND Management service provided within the previous 7 days nor leading to an Evaluation AND Management service or procedure within the next 24 hours or soonest available appointment. This Team Access Model visit is a virtual encounter. It required patient-provider interaction for the medical decision making as documented below. Keysha Gardner has consented to this Virtual encounter. Persons Present: Keysha Gardner Chief Complaint/Reason: follow up thyroid disease in . History of present illness: Keysha Gardner is a 27 year old female who presents for follow up of an endocrinology issue. Thyroid gland disorder: Previous history: 2000: Around this time, age ~5 (first grade) was found to have hypothyroidism. Per patient, policy adviser felt lump in neck . 2000: Ultrasound of thyroid, at outside hospital: I dont have this to review. 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 Started on a dose of levothyroxine. 5150-9090: Followed by pediatric endocrinology. Multiple ultrasound studies. No fine needle aspiration biopsy , per patient. 04/2014: Started oral contraceptive pills. 07/2014: Initial consultation with me. TSH 3.960 (0.358-3.740 uIU/mL), free T4 1.52 [...] (0.76-1.46 ng/dL), on levothyroxine 150 mcg daily. 07/2015: TSH 0.865 (0.358-3.740 uIU/mL), free T4 1.45 (0.76-1.46 ng/dL), on levothyroxine 150 mcg daily. 07/2015: Ultrasound, intra-office: Heterogeneous gland. Right lobe 50.6 x 15.0 x 11.4 mm (length x width x depth) Left lobe 48.7 x 15.2 x 8.1 mm (length x width x depth) Isthmus 2.1 mm depth. No distinct nodules or cysts. No suspicious nodes in neck levels (bilateral) , VII, IV, III, IIa, IIb. 05/2016: TSH 0.376 (0.358-3.740 uIU/mL), free T4 1.50 (0.76-1.46 ng/dL), free T3 3.2 (2.2-4.0 pg/mL), on levothyroxine 150 mcg daily. Some tachycardia issues. I lowered her to levothyroxine 137 mcg daily. 05/2016: Thyroid Stimulating Immunoglobulin (TSI) 43 (<150 %), this was checked due to symptoms. 09/2016: TSH 2.560 (0.358-3.740 uIU/mL), free T4 1.33 (0.76-1.46 ng/dL), free T3 2.8 (2.2-4.0 pg/mL), on levothyroxine 137 mcg daily. Now with some fatigue issues, and cardiac issues resolved. Patient wanted re-trial of the 150 mcg dose. I changed her to levothyroxine 150 mcg daily. 06/2017: TSH 1.090 (0.358-3.740 uIU/mL), free T4 1.74 (0.76-1.46 ng/dL), free T3 3.0 (2.2-4.0 pg/mL), on levothyroxine 150 mcg daily. 06/2018: TSH 3.330 (0.358-3.740 uIU/mL), free T4 1.50 (0.76-1.46 ng/dL), free T3 2.7 (2.2-4.0 pg/mL), on levothyroxine 150 mcg daily. I increased her dose to levothyroxine 175 mcg daily. 08/2018: TSH 0.435 (0.400 - 5.500 uU/mL), free T4 1.8 (0.9-1.7 ng/dL), free T3 3.1 (2.3-4.1 pg/mL), on levothyroxine 175 mcg daily. This was a lab appointment due to symptoms. 05/2019: TSH 0.19 (0.44-3.98 mIU/L), free T4 1.16 (0.61-1.12 ng/dL), free T3 3.2 (2.3-4.2 pg/mL), on levothyroxine 175 mcg daily. I lowered her to levothyroxine 150 mcg daily. 08/2019: TSH 5.220 (0.270-4.200 uIU/mL), on levothyroxine 150 mcg daily. I changed her to levothyroxine 150 mcg x 7.5 pills per week (mean dose 161 mcg daily.) this was a lab appointment due to symptoms. 10/2019: TSH 1.420 (0.270-4.200 uU/mL), free T4 2.5 (0.9-1.7 ng/dL), on levothyroxine 150 mcg x 7.5 pills per week (mean dose 161 mcg daily.) 12/2019: TSH 0.276 (0.270-4.200 uU/mL), free T4 2.2 (0.9-1.7 ng/dL), on levothyroxine 150 mcg x 7.5 pills per week, mean daily dose 161 mcg. 05/2020: TSH 0.555 (0.270-4.200 uIU/mL), free T4 2.1 (more content not included)...[facility] History of Present illness Narrative* Jose Leroy MD - 05/31/2022 3:38 PM EDT Images from the original note were not included. . [facility] Endocrinology - [place] [address] [facility], [address] [place], [place] [id number] [place] [address] Endocrinology - [address], [address] [place] [address] Patient's name: Keysha Gardner Patient's date of : 1995 Date of encounter: 05/31/2022 Virtual Visit Progress Note This is a Virtual encounter initiated for an established patient, parent or guardian not originating from a related Evaluation & Management service provided within the previous 7 days nor leadingto an Evaluation & Management service or procedure within the next 24 hours or soonest available appointment. This Team Access Model visit is a virtual encounter. It required patient- provider interaction for the medical decision making as documented below. Keysha Gardner has consented to this Virtual encounter. Persons Present: Keysha Gardner Chief Complaint/Reason: follow up hypothyroidism. History of present illness: Keysha Gardner is a 26 year old female who presents for follow up of an endocrinology issue. Thyroid gland disorder: Previous history: 2000: Around this time, age ~5 (first grade) was found to have hypothyroidism. Per patient, policy adviser felt lump in neck . 2000: Ultrasound of thyroid, at outside hospital: I dont have this to review. 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 Started on a dose of levothyroxine. [id number]: Followed by pediatric endocrinology. Multiple ultrasound studies. No fine needle aspiration biopsy , per patient. 04/2014: Started oral contraceptive pills. 07/2014: Initial consultation with me. TSH 3.960 (0.358-3.740 uIU/mL), free T4 1.52 (0.76-1.46 ng/dL), free T3 2.4 (2.2-4.0 pg/ml), on levothyroxine 137 mcg daily. I increased to levothyroxine 150 mcgdaily. 07/2014: Thyroid peroxidase antibodies 822.0 (0.0-60.0 IU/ml), [...] (0.76-1.46 ng/dL), on levothyroxine 150 mcg daily. 07/2015: TSH 0.865 (0.358-3.740 uIU/mL), free T4 1.45 (0.76-1.46 ng/dL), on levothyroxine 150 mcg daily. 07/2015: Ultrasound, intra-office: Heterogeneous gland. Right lobe 50.6 x 15.0 x 11.4 mm (length x width x depth) Left lobe 48.7 x 15.2 x 8.1 mm (length x width x depth) Isthmus 2.1 mm depth. No distinct nodules or cysts. No suspicious nodes in neck levels (bilateral) , VII, IV, III, IIa, IIb. 05/2016: TSH 0.376 (0.358-3.740 uIU/mL), free T4 1.50 (0.76-1.46 ng/dL), free T3 3.2 (2.2-4.0 pg/mL), on levothyroxine 150 mcg daily. Some tachycardia issues. I lowered her to levothyroxine 137 mcg daily. 05/2016: Thyroid Stimulating Immunoglobulin (TSI) 43 (<150 %), this was checked due to symptoms. 09/2016: TSH 2.560 (0.358-3.740 uIU/mL), free T4 1.33 (0.76-1.46 ng/dL), free T3 2.8 (2.2-4.0 pg/mL), on levothyroxine 137 mcg daily. Now with some fatigue issues, and cardiac issues resolved. Patientwanted re-trial of the 150 mcg dose. I changed her to levothyroxine 150 mcg daily. 06/2017: TSH 1.090 (0.358-3.740 uIU/mL), free T4 1.74 (0.76-1.46 ng/dL), free T3 3.0 (2.2-4.0 pg/mL), on levothyroxine 150 mcg daily. 06/2018: TSH 3.330 (0.358-3.740 uIU/mL), free T4 1.50 (0.76-1.46 ng/dL), free T3 2.7 (2.2-4.0 pg/mL), on levothyroxine 150 mcg daily. I increased her dose to levothyroxine 175 mcg daily. 08/2018: TSH 0.435 (0.400 - 5.500 uU/mL), free T4 1.8 (0.9-1.7 ng/dL), free T3 3.1 (2.3-4.1 pg/mL), on levothyroxine 175 mcg daily. This was a lab appointment due to symptoms. 05/2019: TSH 0.19 (0.44-3.98 mIU/L), free T4 1.16 (0.61-1.12 ng/dL), free T3 3.2 (2.3-4.2 pg/mL), onlevothyroxine 175 mcg daily. I lowered her to levothyroxine 150 mcg daily. 08/2019: TSH 5.220 (0.270-4.200 uIU/mL), on levothyroxine 150 mcg daily. I changed her to levothyroxine 150 mcg x 7.5 pills per week (mean dose 161 mcg daily.) this was a lab appointment due to symptoms. 10/2019: TSH 1.420 (0.270-4.200 uU/mL), free T4 2.5 (0.9-1.7 ng/dL), on levothyroxine 150 mcg x 7.5 pills per week (mean dose 161 mcg daily.) 12/2019: TSH 0.276 (0.270-4.200 uU/mL), free T4 2.2 (0.9-1.7 ng/dL), on levothyroxine 150 mcg x 7.5pills per week, mean daily dose 161 mcg. 05/2020: TSH 0.555 (0.270-4.200 uIU/mL), free T4 2.1 (0.9-1.7 ng/dL), free T3 3.5 (2.3-4.1 pg/mL), on levothyroxine 150 mcg x 7.5 pills per week, mean dose 161 mcg. 05/2020: [facility]: Right lobe 48.9 x 12.0 x 13.3 mm (length x width x depth), Left lobe 49 x14.5 x 11.0 mm (length x width x depth), Isthmus 2.3 mm (length x width x depth). Heterogeneity in both lobes. No distinct nodules. 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 04/2021: TSH 9.980 (0.270-4.200 uIU/mL), free T4 1.5 (0.9-1.7 ng/dL), Total T4 8.5 (5.5-10.2 ug/dL),free T3 3.0 (2.3-4.1 pg/mL), on levothyroxine 150 mcg x 7.5 pills per week. I increased her to levothyroxine 200 mcg daily. 07/21/2021: TSH 0.1 at outside hospital. She was planning on starting Letrozole. I lowered the levothyroxine to 200 mcg x 6 pills per week. 08/2021: TSH 0.018 (0.270-4.200 uIU/mL), free T4 2.2 (0.9-1.7 ng/dL), on levothyroxine 200 mcg x 6 pills per week. early , I lowered her to 200 mcg x 5.5 pills per week. 10/10/2021: Around this time had spontaneous . G1(?) or 2, P0 Ab1-2 10/19/2021: TSH 11 at outside hospital. I had her return to 200 mcg daily. 11/2021: TSH 0.03 (0.49-4.67 uIU/mL), free T4 2.04 (0.61-1.60 ng/dL, free T3 4.40 (2.50-3.90 pg/mL), while on levothyroxine 200 mcg daily. I lowered her to levothyroxine 175 mcg daily. 02/16/2022: TSH 0.02 (0.34-5.60 mIU/L), free T4 2.08 (0.58-1.64 ng/dL), at [facility]. I reduced her to levothyroxine 175 mcg x 6.5 pills per week. 03/2022: TSH 0.12 (0.49-4.67 uIU/mL), free T4 1.96 (0.61-1.60 ngdl) while on 175 mcg x 6.5 pills perweek. I lowered her to levothyroxine 150 mcg daily. 05/09/2022: TSH 0.86 (0.49-4.67 uIU/mL), while on levothyroxine 150 mcg daily, #2, week ~5 05/11/2022: Notified me of . 05/28/2022: TSH 2.52 (0.49-4.67 uIU/mL), while on levothyroxine 150 mcg daily, #2, week ~8. Interval history: The patient now returns for re-evaluation and follow-up. The above history was re-confirmed. When asked how she feels overall, she responded I have been extremely sick with her . Nausea with this . #2, week # 8. She is on levothyroxine, monotherapy. The levothyroxine dose is 150 micrograms, daily. TSH as above. The levothyroxine is administered when she wakes up to start the day, with water. Other meds taken at the time of the levothyroxine include: none. Otherwise, the next time any meds are taken is typically at least few hours later. Coffee: One of more hours later. Food: One of more hours later. Compliance with the levothyroxine is reported as good. Anterior neck compression symptoms: No overt or daily dysphagia of solids, liquids or pills. No overt globus sensation in neck. No new or existing hoarseness. No anterior neck compression / feeling of external pressure. Denies clearing of throat. Denies cough. Biotin use (vitamin B-7) : Use of iycw-usw-gavorkk, high dose, biotin supplement: None. Use of Xrwb-Errh-Kvee vitamins, or similar formulation with high-dose biotin: None. Use of B-complex vitamin preparations with high-dose biotin: None. Use of axfq-zqc-pvdkmle leave-in hair conditioners that contain biotin: None. Other endocrine history: 05/2015: random glucose 85 mg/dL, 05/2016: HbA1c 5.2% at outside lab. 06/18/2016: plasma fractionated metanephrine 20 (0-62 pg/mL), normetanephrine 38 (0-145 pg/mL), Allergies, medications, medical and surgical history, family history and social history, and problem list reviewed. Preferred pharmacy for the medications I prescribe (or may prescribe) is: [facility]/pharmacy #[id number] [place] [address] [address] [facility] [phone] Review of Systems Review of Systems Constitutional: Positive for malaise/fatigue and weight loss (with ). Respiratory: Negative for shortness of breath. Cardiovascular: Negative for chest pain. Gastrointestinal: Positive for nausea and vomiting. Musculoskeletal: Negative for joint pain. Neurological: Negative for tremors. 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 Migraine, intractable Paroxysmal spells UPJ (ureteropelvic junction) obstruction PAST SURGICAL HISTORY Procedure Laterality Date FOOT SURGERY HX Right 2008 foot surgery for infection from nail KIDNEY SURGERY HX R kidney Pyeloplasty FAMILY HISTORY Problem Relation Age of Onset Gall Stones Mother Asthma Sister Heart Sister Dysrhythmia, tonya issue Lymphoma Maternal Grandmother Systemic Lupus Erythematosus Maternal Grandmother Crohn's Disease Maternal Grandmother Thyroid Maternal Grandfather Unclear thyroid issue Asthma Maternal Grandfather Diabetes Paternal Grandmother Diabetes Paternal Grandfather Social History Tobacco Use Smoking status: Never Smokeless tobacco: Never Vaping Use Vaping Use: Never used Substance Use Topics Alcohol use: No Drug use: No Medications Current Outpatient Medications Medication Sig Dispense Refill ondansetron orally disintegrating (ZOFRAN ODT) 4 mg disintegrating tablet Take 4 mg by mouth as needed. compounded progesterone 200mg capsule 200 mg once daily. Compounded levothyroxine (SYNTHROID) 150 mcg tablet Take 1 tablet by mouth once daily. 90 tablet 3 metFORMIN ER (GLUMETZA) 500 mg 24 hr tablet Take 500 mg by mouth daily with breakfast. vit no.124/iron/folic ( VITAMIN ORAL) Take by mouth. metoprolol tartrate, short acting, (LOPRESSOR) 25 mg tablet Take 25 mg by mouth as needed. albuterol (PROVENTIL) 2.5 mg /3 mL (0.083 %) nebulizer solution Use 2.5 mg via nebulizer as needed. albuterol HFA (PROVENTIL HFA, VENTOLIN HFA) 90 mcg/actuation inhaler Inhale 2 Puffs as instructed every 6 hours. 1 Inhaler 0 triamcinolone acetonide (KENALOG) 0.1 % cream Apply 1 application to affected area as needed. No current facility-administered medications for this visit. Physical Examination and Vitals There were no vitals filed for this visit. Body Mass Index (BMI): There is no height or weight on file to calculate BMI. Last 5 Encounter Wt Readings: Date: Wt: 04/14/2022 70.7 kg (155 lb 14.4 oz) 12/03/2021 72.5 kg (159 lb 12.8 oz) 05/20/2021 70.1 kg (154 lb 9.6 oz) 06/03/2020 68.1 kg (150 lb 3.2 oz) 07/09/2018 68.7 kg (151 lb 8 oz) Physical Exam Constitutional: General: She is not in acute distress. Appearance: She is not toxic-appearing. HENT: Head: Normocephalic. Eyes: General: No scleral icterus. Neck: Thyroid: No thyromegaly. Comments: There is no visible thyromegaly with swallowing, while neck extended, via virtual visit video examination. Pulmonary: Effort: Pulmonary effort is normal. No respiratory distress. Breath sounds: No wheezing (No audible wheezing with virtual exam). Neurological: Mental Status: She is oriented to person, place, and time. Motor: Tremor (Does have tremor of outstretched hands, via virtual video exam. Right > left) present. Psychiatric: Mood and Affect: Mood and affect normal. Cognition and Memory: Memory normal. Judgment: Judgment normal. Assessment and Plans: 1. 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 #2, week #~8. TSH ok, but not quite at goals. I increased her to levothyroxine 175 mcg daily. Has standing order for Thyroid stimulating hormone (TSH) with OB. Instructed to do local TSH in 3-4 weeks, and notify me. I should be able to see in Epic within 1-3 days. An electronic prescription was sent to the local pharmacy. - levothyroxine (SYNTHROID) 175 mcg tablet; Take 1 tablet by mouth once daily. Dispense: 90 tablet;Refill: 3 2. 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 3. Elena's disease Treat with levothyroxine 4. Family history of thyroid disease Virtual Visit notations: Time: total time of encounter 30 minutes. Today s visit 30 minutes. Greater than 50% of this was spent in counseling and/or coordination of care. This included review of pathophysiology, treatment options and instructions. Medical decision making: moderate. Exam: note, exam performed by enabled technology. Jose Leroy MD [facility] [place] documented in this encounterProvidence Hospital03-17-2023 Miscellaneous Notes* Telephone Encounter - Kareen Vasquez - 05/13/2022 2:05 PM EDT I have sent a msg to eben Leroy regarding this virtual ov on [facility] asking if BOV acceptable Kareen Vasquez May 13, 2022 2:06 PM * Telephone Encounter - Liza Hernandez MA - 05/13/2022 1:06 PM EDT ----- Message from India Schneider sent at 05/13/2022 12:49 PM EDT ----- Regarding: Endo/ [Jose Leroy MD]/ Message Subject Line Format: Endo/ [Jose Leroy MD]/ Message Patient has been identified by name and Date of (Y/N): y Patient: Keysha Gardner Date of : 1995 Provider for this encounter: Chen Lucia MD Reason for the call/escalation: Message Was Patient Referred to [facility]/Seek Emergency Treatment (Y/N): n Did Patient Agree (Y/N): n Was An Attempt Made To Transfer The Patient To The Office (Y/N): n Were You Able To Reach Someone At The Office (Y/N): n If Yes - Patient Was Transferred To (Caregivers Name): n If No - 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 Did You Speak With Regarding This Patient: n Was an appointment scheduled (Y/N): n Reason patient was requesting visit (RFV/signs and symptoms/diagnosis) : Message, patient is calling back to state she was informed to schedule a 3 week vv she had a positive test, looking for any Monday except for next Monday in the afternoon Person calling if other than patient: no Return call to if other than patient: no Best contact number: [phone] Thank you, India Jennie May 13, 2022 12:50 PM documented in this encounterProvidence Hospital03-16-2023 Miscellaneous Notes* Telephone Encounter - Ekaterina Gallegos - 05/12/2022 8:35 AM EDT LM on for patient to call back to schedule appointment with Dr. Leroy. Please see below note to schedule. Ekaterina Gallegos May 12, 2022 8:36 AM * Telephone Encounter - Jose Leroy MD - 05/11/2022 4:11 PM EDT Help her set up a virtual visit for ~ 3 weeks Can be BOV time slot. Jose Leroy MD documented in this encounterProvidence Hospital02-20-2023 Miscellaneous Notes* Telephone Encounter - Liza Hernandez MA - 04/18/2022 2:25 PM EST Images from the original note were not included. [facility] Outside Information Contains abnormal data T4, free Specimen: PLASMA Component Ref Range & Units 4 d ago T4, free 0.61 - 1.60 ng/dL 1.96 High Resulting [facility] LAB Specimen Collected: 04/14/22 12:11 PM Last Resulted: 04/14/22 2:59 PM Received From: [facility] Result Received: 04/18/22 2:32 PM View Encounter [facility] Outside Information Contains abnormal dataTSH Specimen: PLASMA Component Ref Range & Units 4 d ago TSH 0.49 - 4.67 uIU/mL 0.12 Low Resulting [facility] LAB Specimen Collected: 04/14/22 12:11 PM Last Resulted: 04/14/22 2:57 PM Received From: [facility] Result Received: 04/18/22 2:32 PM View Encounter Recent Data from [facility] Related to TSH Component 04/14/22 12/11/21 TSH 0.12 Low 0.03 Low documented in this encounterProvidence Hospital02-16-2023 Instructions* Patient Instructions* Jose Leroy MD - 04/14/2022 8:25 AM EST Levothyroxine / Synthroid use guidelines: Levothyroxine (brand names Synthroid, Levoxyl, Unithroid, or generic levothyroxine) is best taken all by itself, and with an empty stomach. The three best times to take the levothyroxine are: 1. In the morning (ideally the first thing you do when you wake up). See coffee issue, below. 2. At bedtime (if no other medicines or supplements at that time, and few hours after last food.) 3. In the middle of the night, when you wake up to urinate. This may be the ideal time, as it allows multiple hours prior to any other beverage/food or pill(s). Take the levothyroxine with water (and water only, no other type of beverages). Take one hour before any coffee, as coffee has been shown to interfere with the absorption of the levothyroxine. Take (at least) one hour prior to any other medicines. I prefer three hours, especially if the medication or supplement has iron or calcium. Take on empty stomach (one hour prior to food or three (or more) hours after a meal.) If you forget to take a dose, then its is ok to take two pills the next day. documented in this encounterProvidence Hospital02-16-2023 History of Present illness Narrative* Jose Leroy MD - 04/14/2022 8:19 AM EST Images from the original note were not included. . [facility] [place] [address] [facility], [address] Endocrinology - [address], [address] [place], [place] [address] Patient's name: Keysha Gardner Patient's date of : 1995 Date of encounter: 04/14/2022 History of present illness: Keysha Gardner is a 26 year old female who presents for follow up of an endocrinology issue. Thyroid gland disorder: Previous history: 2000: Around this time, age ~5 (first grade) was found to have hypothyroidism. Per patient, policy adviser felt lump in neck . 2000: Ultrasound of thyroid, at outside hospital: I dont have this to review. 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 Started on a dose of levothyroxine. [id number]: Followed by pediatric endocrinology. Multiple ultrasound studies. No fine needle aspiration biopsy , per patient. 04/2014: Started oral contraceptive pills. 07/2014: Initial consultation here. TSH 3.960 (0.358-3.740 uIU/mL), free T4 1.52 [...] (0.76-1.46 ng/dL), on levothyroxine 150 mcg daily. 07/2015: TSH 0.865 (0.358-3.740 uIU/mL), free T4 1.45 (0.76-1.46 ng/dL), on levothyroxine 150 mcg daily. 07/2015: Ultrasound, intra-office: Heterogeneous gland. Right lobe 50.6 x 15.0 x 11.4 mm (length x width x depth) Left lobe 48.7 x 15.2 x 8.1 mm (length x width x depth) Isthmus 2.1 mm depth. No distinct nodules or cysts. No suspicious nodes in neck levels (bilateral) , VII, IV, III, IIa, IIb. 05/2016: TSH 0.376 (0.358-3.740 uIU/mL), free T4 1.50 (0.76-1.46 ng/dL), free T3 3.2 (2.2-4.0 pg/mL), on levothyroxine 150 mcg daily. Some tachycardia issues. I lowered her to levothyroxine 137 mcg daily. 05/2016: Thyroid Stimulating Immunoglobulin (TSI) 43 (<150 %), this was checked due to symptoms. 09/2016: TSH 2.560 (0.358-3.740 uIU/mL), free T4 1.33 (0.76-1.46 ng/dL), free T3 2.8 (2.2-4.0 pg/mL), on levothyroxine 137 mcg daily. Now with some fatigue issues, and cardiac issues resolved. Patientwanted re-trial of the 150 mcg dose. I changed her to levothyroxine 150 mcg daily. 06/2017: TSH 1.090 (0.358-3.740 uIU/mL), free T4 1.74 (0.76-1.46 ng/dL), free T3 3.0 (2.2-4.0 pg/mL), on levothyroxine 150 mcg daily. 06/2018: TSH 3.330 (0.358-3.740 uIU/mL), free T4 1.50 (0.76-1.46 ng/dL), free T3 2.7 (2.2-4.0 pg/mL), on levothyroxine 150 mcg daily. I increased her dose to levothyroxine 175 mcg daily. 08/2018: TSH 0.435 (0.400 - 5.500 uU/mL), free T4 1.8 (0.9-1.7 ng/dL), free T3 3.1 (2.3-4.1 pg/mL), on levothyroxine 175 mcg daily. This was a lab appointment due to symptoms. 05/2019: TSH 0.19 (0.44-3.98 mIU/L), free T4 1.16 (0.61-1.12 ng/dL), free T3 3.2 (2.3-4.2 pg/mL), onlevothyroxine 175 mcg daily. I lowered her to levothyroxine 150 mcg daily. 08/2019: TSH 5.220 (0.270-4.200 uIU/mL), on levothyroxine 150 mcg daily. I changed her to levothyroxine 150 mcg x 7.5 pills per week (mean dose 161 mcg daily.) this was a lab appointment due to symptoms. 10/2019: TSH 1.420 (0.270-4.200 uU/mL), free T4 2.5 (0.9-1.7 ng/dL), on levothyroxine 150 mcg x 7.5 pills per week (mean dose 161 mcg daily.) 12/2019: TSH 0.276 (0.270-4.200 uU/mL), free T4 2.2 (0.9-1.7 ng/dL), on levothyroxine 150 mcg x 7.5pills per week, mean daily dose 161 mcg. 05/2020: TSH 0.555 (0.270-4.200 uIU/mL), free T4 2.1 (0.9-1.7 ng/dL), free T3 3.5 (2.3-4.1 pg/mL), on levothyroxine 150 mcg x 7.5 pills per week, mean dose 161 mcg. 05/2020: [facility]: Right lobe 48.9 x 12.0 x 13.3 mm (length x width x depth), Left lobe 49 x14.5 x 11.0 mm (length x width x depth), Isthmus 2.3 mm (length x width x depth). Heterogeneity in both lobes. No distinct nodules. 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 04/2021: TSH 9.980 (0.270-4.200 uIU/mL), free T4 1.5 (0.9-1.7 ng/dL), Total T4 8.5 (5.5-10.2 ug/dL),free T3 3.0 (2.3-4.1 pg/mL), on levothyroxine 150 mcg x 7.5 pills per week. I increased her to levothyroxine 200 mcg daily. 07/21/2021: TSH 0.1 at outside hospital. She was planning on starting Letrozole. I lowered the levothyroxine to 200 mcg x 6 pills per week. 08/2021: TSH 0.018 (0.270-4.200 uIU/mL), free T4 2.2 (0.9-1.7 ng/dL), on levothyroxine 200 mcg x 6 pills per week. early , I lowered her to 200 mcg x 5.5 pills per week. 10/10/2021: Around this time had spontaneous . G1(?) or 2, P0 Ab1-2 10/19/2021: TSH 11 at outside hospital. I had her return to 200 mcg daily. 11/2021: TSH 0.03 (0.49-4.67 uIU/mL), free T4 2.04 (0.61-1.60 ng/dL, free T3 4.40 (2.50-3.90 pg/mL), while on levothyroxine 200 mcg daily. I lowered her to levothyroxine 175 mcg daily. 02/16/2022: TSH 0.02 (0.34-5.60 mIU/L), free T4 2.08 (0.58-1.64 ng/dL), at [facility]. I reduced her to levothyroxine 175 mcg x 6.5 pills per week. Interval history: The patient now returns for re-evaluation and follow-up. The above history was re-confirmed. When asked how she feels overall, she responded pretty good She did do Letrozole x 2, last was done 3 days ago. She is on levothyroxine, monotherapy. The levothyroxine dose is 175 micrograms, x 6.5 pills per week. The levothyroxine is administered when she wakes up to start the day, with water. Other meds taken at the time of the levothyroxine include: none. Otherwise, the next time any meds are taken is typically at least few hours later. Coffee: One of more hours later. Food: One of more hours later. Compliance with the levothyroxine is reported as good. Anterior neck compression symptoms: No overt or daily dysphagia of solids, liquids or pills. No overt globus sensation in neck. No new or existing hoarseness. Occasional raspy voice. No anterior neck compression / feeling of external pressure. Denies clearing of throat. Denies cough. Biotin use (vitamin B-7) : Use of boqk-qju-ldlxsed, high dose, biotin supplement: None. Use of Khvg-Tswo-Iaot vitamins, or similar formulation with high-dose biotin: None. Use of B-complex vitamin preparations with high-dose biotin: None. Use of roda-zdz-gjuwtze leave-in hair conditioners that contain biotin: None. Pre-brian vitamin only. Other endocrine history: 05/2015: random glucose 85 mg/dL, 05/2016: HbA1c 5.2% at outside lab. 06/18/2016: plasma fractionated metanephrine 20 (0-62 pg/mL), normetanephrine 38 (0-145 pg/mL), Allergies, medications, medical and surgical history, family history and social history, and problem list reviewed. Preferred pharmacy for the medications I prescribe (or may prescribe) is: [facility]/pharmacy #[id number] [place] [address] [address] [facility] [phone] Review of Systems Review of Systems Constitutional: Negative for malaise/fatigue. Respiratory: Negative for shortness of breath. Cardiovascular: Negative for chest pain. Musculoskeletal: Negative for joint pain. Neurological: Positive for tremors (chronic, little bit , no changes). 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 Migraine, intractable Paroxysmal spells UPJ (ureteropelvic junction) obstruction PAST SURGICAL HISTORY Procedure Laterality Date FOOT SURGERY HX Right 2008 foot surgery for infection from nail KIDNEY SURGERY HX R kidney Pyeloplasty FAMILY HISTORY Problem Relation Age of Onset Gall Stones Mother Asthma Sister Heart Sister Dysrhythmia, tonya issue Lymphoma Maternal Grandmother Systemic Lupus Erythematosus Maternal Grandmother Crohn's Disease Maternal Grandmother Thyroid Maternal Grandfather Unclear thyroid issue Asthma Maternal Grandfather Diabetes Paternal Grandmother Diabetes Paternal Grandfather Social History Tobacco Use Smoking status: Never Smokeless tobacco: Never Vaping Use Vaping Use: Never used Substance Use Topics Alcohol use: No Drug use: No Medications Current Outpatient Medications Medication Sig Dispense Refill levothyroxine (SYNTHROID) 175 mcg tablet Take 1 tablet by mouth once daily. (Patient taking differently: Take 175 mcg by mouth as directed. 6.5 pills per week) 90 tablet 3 metFORMIN ER (GLUMETZA) 500 mg 24 hr tablet Take 500 mg by mouth daily with breakfast. vit no.124/iron/folic ( VITAMIN ORAL) Take by mouth. metoprolol tartrate, short acting, (LOPRESSOR) 25 mg tablet Take 25 mg by mouth as needed. albuterol (PROVENTIL) 2.5 mg /3 mL (0.083 %) nebulizer solution Use 2.5 mg via nebulizer as needed. albuterol HFA (PROVENTIL HFA, VENTOLIN HFA) 90 mcg/actuation inhaler Inhale 2 Puffs as instructed every 6 hours. 1 Inhaler 0 triamcinolone acetonide (KENALOG) 0.1 % cream Apply 1 application to affected area as needed. No current facility-administered medications for this visit. Physical Examination and Vitals 04/14/22 0824 BP: 125/77 Pulse: 98 Weight: 70.7 kg (155 lb 14.4 oz) Height: 177.8 cm (5' 10 ) Body Mass Index (BMI): Body mass index is 22.37 kg/m . Last 5 Encounter Wt Readings: Date: Wt: 12/03/2021 72.5 kg (159 lb 12.8 oz) 05/20/2021 70.1 kg (154 lb 9.6 oz) 06/03/2020 68.1 kg (150 lb 3.2 oz) 07/09/2018 68.7 kg (151 lb 8 oz) 07/26/2017 65.3 kg (144 lb) Physical Exam Vitals reviewed. Constitutional: Appearance: She is not toxic-appearing or diaphoretic. HENT: Head: Normocephalic and atraumatic. Eyes: General: No scleral icterus. Neck: Thyroid: No thyroid mass, thyromegaly or thyroid tenderness. Cardiovascular: Rate and Rhythm: Normal rate and regular rhythm. Heart sounds: No murmur heard. Pulmonary: Effort: Pulmonary effort is normal. No respiratory distress. Breath sounds: Normal breath sounds. No wheezing, rhonchi or rales. Abdominal: Tenderness: There is no right CVA tenderness or left CVA tenderness. Lymphadenopathy: Head: Right side of head: No submandibular, tonsillar or preauricular adenopathy. Left side of head: No submandibular, tonsillar or preauricular adenopathy. Cervical: No cervical adenopathy. Skin: General: Skin is warm. Neurological: Mental Status: She is alert and oriented to person, place, and time. Motor: Tremor (slight tremor of R hand) present. Psychiatric: Mood and Affect: Mood and affect normal. Judgment: Judgment normal. Assessment and Plans: 1. 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 Euthyroid exam. Feels ok. Seeking . Reviewed issues with hypothyroidism and levothyroxine. She will contact if prior to next appointment. I will check her thyroid hormone levels. Once those are reviewed, then I will adjust the dose(s) asneeded. Will send an electronic prescription to local pharmacy in 90 day supplies, once data reviewed. Preferred pharmacy for the medications I prescribe (or may prescribe) is: [facility]/pharmacy #[id number] [place] [address] - [address] [facility] - [phone] - TSH BLD; Future - T4 FREE/FREE THYROX; Future - T4/THYROXINE BLOOD; Future 2. Long-term current use of thyroid hormone replacement therapy Levothyroxine I reviewed the use of levothyroxine products. Takes properly 3. Elena's disease Treat with levothyroxine 4. Family history of thyroid disease Jose Leroy MD [facility]ocr[facility] - [place] documented in this encounterProv[facility] Hospital01[facility]23 Miscellaneous Notes* Telephone Encounter - Jose Leroy MD - 03/02/2022 10:27 AM EST I reviewed my last note (12/03/2021) and her chart history. Recent levothyroxine change to 175 mcg daily. I did a review of Care Everywhere and updated the outside data. I was able to find the recent labs, and review the thyroid hormone levels. 02/16/2022: TSH 0.02 (0.34-5.60 mIU/L), free T4 2.08 (0.58-1.64 ng/dL), at [facility]. This was while on levothyroxine 175 mcg daliy for around 6 weeks. Has not been on biotin. Assessment and Plans: 1. 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 Recent TSH at outside facility with mild suppression to goal. Free T4 has run high, chronically. Will have her reduce the levothyroxine to 6.5 total pills per week. Notify me if she achieves . 2. Long-term current use of thyroid hormone replacement therapy Levothyroxine 3. Elena's disease Treat with levothyroxine 4. Family history of thyroid disease Jose Leroy MD [facility] Endocrinology - [place] This patient gave consent to this Medical Advice Message and is aware that it may result in a bill to their insurance, as well as the possibility of receiving a bill for a copay and/or deductible. They are an established patient, but are not seeking information exclusively about a problem treated during an in person or video visit in the last seven days. I did not recommend an in person or video visit within seven days of my reply. See the Zola message reply for my assessment and plan. I spent a total of 9 minutes reviewing the patient's prior medical records and current request for medical advice, prescribing medications or ordering tests (if applicable), replying to the patient, and documenting the encounter. documented in this encounterProvidence Hospital12-20-2022 Hospital Discharge instructions Patient Education 02/15/2022 15:41:20 BMI for Adults BMI for Adults Body mass index (BMI) is a number that is calculated from a person's weight and height. BMI may help to estimate how much of a person's weight is composed of fat. BMI can help identify those who may be at higher risk for certain medical problems. How is BMI used with adults? BMI is used as a screening tool to identify possible weight problems. It is used to check whether aperson is obese, overweight, healthy weight, or underweight. How is BMI calculated? BMI measures your weight and compares it to your height. This can be done either in [place] or metric measurements. Note that charts are available to help you find your BMI quickly and easily without having to do these calculations yourself. To calculate your BMI in [place] measurements, your health care provider will: 1.Measure your weight in pounds (lb). 2.Multiply the number of pounds by 703. For example, for a person who weighs 180 lb, multiply that number by 703, which equals [phone],540. 3.Measure your height in inches (in). Then multiply that number by itself to get a measurement called inches squared. For example, for a person who is 70 in tall, the inches squared measurement is 70 in x 70 in, which equals 4900 inches squared. 4.Divide the total from Step 2 (number of lb x 703) by the total from Step 3 (inches squared): 126,540 4900 = 25.8. This is your BMI. To calculate your BMI in metric measurements, your health care provider will: 1.Measure your weight in kilograms (kg). 2.Measure your height in meters (m). Then multiply that number by itself to get a measurement called meters squared. For example, for a person who is 1.75 m tall, the meters squared measurement is 1.75 m x 1.75 m, which is equal to 3.1 meters squared. 3.Divide the number of kilograms (your weight) by the meters squared number. In this example: 70 3.1 = 22.6. This is your BMI. How is BMI interpreted? To interpret your results, your health care provider will use BMI charts to identify whether you are underweight, normal weight, overweight, or obese. The following guidelines will be used: Underweight: BMI less than 18.5. Normal weight: BMI between 18.5 and 24.9. Overweight: BMI between 25 and 29.9. Obese: BMI of 30 and above. Please note: Weight includes both fat and muscle, so someone with a muscular build, such as an athlete, may havea BMI that is higher than 24.9. In cases like these, BMI is not an accurate measure of body fat. To determine if excess body fat is the cause of a BMI of 25 or higher, further assessments may needto be done by a health care provider. BMI is usually interpreted in the same way for men and women. Why is BMI a useful tool? BMI is useful in two ways: Identifying a weight problem that may be related to a medical condition, or that may increase the risk for medical problems. Promoting lifestyle and diet changes in order to reach a healthy weight. Summary Body mass index (BMI) is a number that is calculated from a person's weight and height. BMI may help to estimate how much of a person's weight is composed of fat. BMI can help identify those who may be at higher risk for certain medical problems. BMI can be measured using [place] measurements or metric measurements. To interpret your results, your health care provider will use BMI charts to identify whether you are underweight, normal weight, overweight, or obese. This information is not intended to replace advice given to you by your health care provider. Make sure you discuss any questions you have with your health care provider. Document Released: 10/25/2004 Document Revised: 01/26/2018 Document Reviewed: 12/27/2017 [facility] Patient Education 2019 [employer] [facility] [place] 12-20-2022 Evaluation + Plan note Diagnostic Tests Pending * CBC w/ Auto Diff 02/15/22 * Comprehensive Metabolic Panel 02/15/22 * Lipid Panel 02/15/22 * TSH With T4fr Reflex 02/15/22 [facility]08-23-2022 History of Present illness Narrative* Jose Leroy MD - 10/19/2021 5:51 PM EDT Note: The following is an abstracted note of the either a previous or a new History of Present Illness. This is in prep for an up-coming appointment or a summary update of a disease state. This is not a wkgq-mc-bder encounter. Previous history as follows: Thyroid gland disorder: Previous history: 2000: Around this time, age ~5 (first grade) was found to have hypothyroidism. Per patient, policy adviser felt lump in neck . 2000: Ultrasound of thyroid, at outside hospital: I dont have this to review. 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 Started on a dose of levothyroxine. 5690-9051: Followed by pediatric endocrinology. Multiple ultrasound studies. No fine needle aspiration biopsy , per patient. 04/2014: Started oral contraceptive pills. 07/2014: Initial consultation here. TSH 3.960 (0.358-3.740 uIU/mL), free T4 1.52 [...] (0.76-1.46 ng/dL), on levothyroxine 150 mcg daily. 07/2015: TSH 0.865 (0.358-3.740 uIU/mL), free T4 1.45 (0.76-1.46 ng/dL), on levothyroxine 150 mcg daily. 07/2015: Ultrasound, intra-office: Heterogeneous gland. Right lobe 50.6 x 15.0 x 11.4 mm (length x width x depth) Left lobe 48.7 x 15.2 x 8.1 mm (length x width x depth) Isthmus 2.1 mm depth. No distinct nodules or cysts. No suspicious nodes in neck levels (bilateral) , VII, IV, III, IIa, IIb. 05/2016: TSH 0.376 (0.358-3.740 uIU/mL), free T4 1.50 (0.76-1.46 ng/dL), free T3 3.2 (2.2-4.0 pg/mL), on levothyroxine 150 mcg daily. Some tachycardia issues. I lowered her to levothyroxine 137 mcg daily. 05/2016: Thyroid Stimulating Immunoglobulin (TSI) 43 (<150 %), this was checked due to symptoms. 09/2016: TSH 2.560 (0.358-3.740 uIU/mL), free T4 1.33 (0.76-1.46 ng/dL), free T3 2.8 (2.2-4.0 pg/mL), on levothyroxine 137 mcg daily. Now with some fatigue issues, and cardiac issues resolved. Patientwanted re-trial of the 150 mcg dose. I changed her to levothyroxine 150 mcg daily. 06/2017: TSH 1.090 (0.358-3.740 uIU/mL), free T4 1.74 (0.76-1.46 ng/dL), free T3 3.0 (2.2-4.0 pg/mL), on levothyroxine 150 mcg daily. 06/2018: TSH 3.330 (0.358-3.740 uIU/mL), free T4 1.50 (0.76-1.46 ng/dL), free T3 2.7 (2.2-4.0 pg/mL), on levothyroxine 150 mcg daily. I increased her dose to levothyroxine 175 mcg daily. 08/2018: TSH 0.435 (0.400 - 5.500 uU/mL), free T4 1.8 (0.9-1.7 ng/dL), free T3 3.1 (2.3-4.1 pg/mL), on levothyroxine 175 mcg daily. This was a lab appointment due to symptoms. 05/2019: TSH 0.19 (0.44-3.98 mIU/L), free T4 1.16 (0.61-1.12 ng/dL), free T3 3.2 (2.3-4.2 pg/mL), onlevothyroxine 175 mcg daily. I lowered her to levothyroxine 150 mcg daily. 08/2019: TSH 5.220 (0.270-4.200 uIU/mL), on levothyroxine 150 mcg daily. I changed her to levothyroxine 150 mcg x 7.5 pills per week (mean dose 161 mcg daily.) this was a lab appointment due to symptoms. 10/2019: TSH 1.420 (0.270-4.200 uU/mL), free T4 2.5 (0.9-1.7 ng/dL), on levothyroxine 150 mcg x 7.5 pills per week (mean dose 161 mcg daily.) 12/2019: TSH 0.276 (0.270-4.200 uU/mL), free T4 2.2 (0.9-1.7 ng/dL), on levothyroxine 150 mcg x 7.5pills per week, mean daily dose 161 mcg. 05/2020: TSH 0.555 (0.270-4.200 uIU/mL), free T4 2.1 (0.9-1.7 ng/dL), free T3 3.5 (2.3-4.1 pg/mL), on levothyroxine 150 mcg x 7.5 pills per week, mean dose 161 mcg. 05/2020: [facility]: Right lobe 48.9 x 12.0 x 13.3 mm (length x width x depth), Left lobe 49 x14.5 x 11.0 mm (length x width x depth), Isthmus 2.3 mm (length x width x depth). Heterogeneity in both lobes. No distinct nodules. 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 04/2021: TSH 9.980 (0.270-4.200 uIU/mL), free T4 1.5 (0.9-1.7 ng/dL), Total T4 8.5 (5.5-10.2 ug/dL),free T3 3.0 (2.3-4.1 pg/mL), on levothyroxine 150 mcg x 7.5 pills per week. I increased her to levothyroxine 200 mcg daily. 07/21/2021: TSH 0.1 at outside hospital. She was planning on starting Letrozole. I lowered the levothyroxine to 200 mcg x 6 pills per week. 08/2021: TSH 0.018 (0.270-4.200 uIU/mL), free T4 2.2 (0.9-1.7 ng/dL), on levothyroxine 200 mcg x 6 pills per week. early , I lowered her to 200 mcg x 5.5 pills per week. 10/19/2021: TSH 11 at outside hospital. I had her return to 200 mcg daily. Other endocrine history: 05/2015: random glucose 85 mg/dL, 05/2016: HbA1c 5.2% at outside lab. 06/18/2016: plasma fractionated metanephrine 20 (0-62 pg/mL), normetanephrine 38 (0-145 pg/mL), documented in this encounterProvidence Hospital07-21-2022 Miscellaneous Notes* Telephone Encounter - Ekaterina Gallegos - 09/16/2021 3:51 PM EDT LM on for patient to call back to provide information to fax lab orders. Ekaterina Gallegos September 16, 2021 3:59 PM * Telephone Encounter - Jose Leroy MD - 09/16/2021 9:55 AM EDT Labs order on front printer STOW Should be TSH and free T4 Can you coordinate with the patient as per how to fax those to her local lab in [facility] She is good with Homero Leroy MD documented in this encounterProvidence Hospital05-18-2022 Evaluation note* Encounter Date Diagnosis Assessment Notes Treatment Notes Treatment Clinical Notes June, Bacterial conjunctivitis of left eye (ICD-10 - H10.9) Findings consistent with bacterial conjunctivitis based on presentation, onset as well as discharge. Advised on good handwashing technique as well as use of antibiotic eyedrops over the next week. Advised to continue to wearing glasses and dispose of current contacts and replace with new contacts after treatment. No red flags of sensitivity to light, vision changes or pain. Reinforced that exam of her eye is very limited in this setting therefore if any changes in current course where she experienced any of the above symptoms that she should urgently report to emergency room or ophthalmology.Patient verbalizes understanding and agrees with plan of care. [employer] Other 03-25-2022 Miscellaneous Notes* Telephone Encounter - Kareen Vasquez - 05/21/2021 8:41 AM EDT Done Kareen Vasquez May 21, 2021 8:41 AM * Telephone Encounter - Jose Leroy MD - 05/20/2021 5:05 PM EDT Lab order on front printer [place]. TSH Mail to patient. Jose Leroy MD documented in this encounterProvidence Hospital03-24-2022 History of Past illness Narrative* ProblemNoted DateResolved DateGoiter, zzukxzz3805/20/2021 Overview: 2000: Around this time, age ~5 (first grade) was found to have hypothyroidism. Per patient, pediatricia felt lump in neck . 2000: Ultrasound of thyroid, at outside hospital: I dont have this to review. 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 Started on a dose of levothyroxine. 1698-8907: Followed by pediatric endocrinology. Multiple ultrasound studies. [...] (0.76-1.46 ng/dL), on levothyroxine 150 mcg daily. Elena's xfthadw3605/20/2021 Overview: dignosed at age 4 Osrxybmtixthta01/24/2022documented as of this encounter (statuses as of 05/20/2021) [facility] of Past illness Narrative* ProblemNoted Date Resolved DateGoiter, pumlpws2805/20/2021 Overview: 2000: Around this time, age ~5 (first grade) was found to have hypothyroidism. Per patient, pediatricia felt lump in neck . 2000: Ultrasound of thyroid, at outside hospital: I dont have this to review. 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 Started on a dose of levothyroxine. 2700-4312: Followed by pediatric endocrinology. Multiple ultrasound studies. [...] (0.76-1.46 ng/dL), on levothyroxine 150 mcg daily. Elena's gcvjabd7805/20/2021 Overview: dignosed at age 4 Vfbylwefdgenis05/24/2022documented as of this encounter (statuses as of 05/20/2021) [facility] of Past illness Narrative* ProblemNoted Date Resolved DateGoiter, jswsdof7605/20/2021 Overview: 2000: Around this time, age ~5 (first grade) was found to have hypothyroidism. Per patient, pediatricia felt lump in neck . 2000: Ultrasound of thyroid, at outside hospital: I dont have this to review. 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 Started on a dose of levothyroxine. 6203-7580: Followed by pediatric endocrinology. Multiple ultrasound studies. [...] (0.76-1.46 ng/dL), on levothyroxine 150 mcg daily. Elena's nyegzko8105/20/2021 Overview: dignosed at age 4 Cmmmlfzczgqjnd64/24/2022documented as of this encounter (statuses as of 05/21/2021) [facility] of Past illness Narrative* ProblemNoted Date Resolved DateGoiter, xrrxqbo3505/20/2021 Overview: 2000: Around this time, age ~5 (first grade) was found to have hypothyroidism. Per patient, pediatricia felt lump in neck . 2000: Ultrasound of thyroid, at outside hospital: I dont have this to review. 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 Started on a dose of levothyroxine. 7110-5889: Followed by pediatric endocrinology. Multiple ultrasound studies. [...] (0.76-1.46 ng/dL), on levothyroxine 150 mcg daily. Elena's wvzckgn1505/20/2021 Overview: dignosed at age 4 Wynxpmeblnbfzn33/24/2022documented as of this encounter (statuses as of 09/16/2021) [facility] of Past illness Narrative* ProblemNoted Date Resolved DateGoiter, pcpaxgo0605/20/2021 Overview: 2000: Around this time, age ~5 (first grade) was found to have hypothyroidism. Per patient, pediatricia felt lump in neck . 2000: Ultrasound of thyroid, at outside hospital: I dont have this to review. 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 Started on a dose of levothyroxine. 7107-8617: Followed by pediatric endocrinology. Multiple ultrasound studies. [...] (0.76-1.46 ng/dL), on levothyroxine 150 mcg daily. Elena's irvcpty8505/20/2021 Overview: dignosed at age 4 Wzbawqoqwvsuiz29/24/2022documented as of this encounter (statuses as of 09/16/2021) [facility] Past illness Narrative* ProblemNoted Date Resolved DateGoiter, hijjcjf0005/20/2021 Overview: 2000: Around this time, age ~5 (first grade) was found to have hypothyroidism. Per patient, pediatricia felt lump in neck . 2000: Ultrasound of thyroid, at outside hospital: I dont have this to review. 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 Started on a dose of levothyroxine. 6185-8453: Followed by pediatric endocrinology. Multiple ultrasound studies. [...] (0.76-1.46 ng/dL), on levothyroxine 150 mcg daily. Elena's bttjltg4905/20/2021 Overview: dignosed at age 4 Dvfyivknhgblvb21/24/2022documented as of this encounter (statuses as of 09/17/2021) [facility] Narrative* ProblemNoted Date Resolved DateGoiter, hyqmjgm0405/20/2021 Overview: 2000: Around this time, age ~5 (first grade) was found to have hypothyroidism. Per patient, pediatricia felt lump in neck . 2000: Ultrasound of thyroid, at outside hospital: I dont have this to review. 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 Started on a dose of levothyroxine. 2933-1736: Followed by pediatric endocrinology. Multiple ultrasound studies. [...] (0.76-1.46 ng/dL), on levothyroxine 150 mcg daily. Elena's qxetudn1805/20/2021 Overview: dignosed at age 4 Gotgaibsftlryp98/24/2022documented as of this encounter (statuses as of 10/04/2021) [facility] Narrative* ProblemNoted Date Resolved DateGoiter, emayuli3905/20/2021 Overview: 2000: Around this time, age ~5 (first grade) was found to have hypothyroidism. Per patient, pediatricia felt lump in neck . 2000: Ultrasound of thyroid, at outside hospital: I dont have this to review. 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 Started on a dose of levothyroxine. 9910-5897: Followed by pediatric endocrinology. Multiple ultrasound studies. [...] (0.76-1.46 ng/dL), on levothyroxine 150 mcg daily. Elena's soovaws9605/20/2021 Overview: dignosed at age 4 Crxuyvgycahopd64/24/2022documented as of this encounter (statuses as of 10/19/2021) [facility] Narrative* ProblemNoted Date Resolved DateGoiter, sodukcx6205/20/2021 Overview: 2000: Around this time, age ~5 (first grade) was found to have hypothyroidism. Per patient, pediatricia felt lump in neck . 2000: Ultrasound of thyroid, at outside hospital: I dont have this to review. 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 Started on a dose of levothyroxine. 9871-0273: Followed by pediatric endocrinology. Multiple ultrasound studies. [...] (0.76-1.46 ng/dL), on levothyroxine 150 mcg daily. Elena's lwabmfo5005/20/2021 Overview: dignosed at age 4 Thqvwyuswkylkg52/24/2022documented as of this encounter (statuses as of 10/19/2021) [facility] Narrative* ProblemNoted Date Resolved DateGoiter, gqxbuzy5705/20/2021 Overview: 2000: Around this time, age ~5 (first grade) was found to have hypothyroidism. Per patient, pediatricia felt lump in neck . 2000: Ultrasound of thyroid, at outside hospital: I dont have this to review. 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 Started on a dose of levothyroxine. 6275-7647: Followed by pediatric endocrinology. Multiple ultrasound studies. [...] (0.76-1.46 ng/dL), on levothyroxine 150 mcg daily. Elena's tpcxbks8805/20/2021 Overview: dignosed at age 4 Iykdjfhppecnhh86/24/2022documented as of this encounter (statuses as of 12/31/2021) [facility] Narrative* ProblemNoted Date Resolved DateGoiter, ushqgei7805/20/2021 Overview: 2000: Around this time, age ~5 (first grade) was found to have hypothyroidism. Per patient, pediatricia felt lump in neck . 2000: Ultrasound of thyroid, at outside hospital: I dont have this to review. 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 Started on a dose of levothyroxine. 4864-2033: Followed by pediatric endocrinology. Multiple ultrasound studies. [...] (0.76-1.46 ng/dL), on levothyroxine 150 mcg daily. Elena's mmgarud9505/20/2021 Overview: dignosed at age 4 Ztwlbpzowstbxn58/24/2022documented as of this encounter (statuses as of 03/03/2022) [facility] Narrative* ProblemNoted Date Resolved DateGoiter, rncpjje2505/20/2021 Overview: 2000: Around this time, age ~5 (first grade) was found to have hypothyroidism. Per patient, pediatricia felt lump in neck . 2000: Ultrasound of thyroid, at outside hospital: I dont have this to review. 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 Started on a dose of levothyroxine. 5237-6342: Followed by pediatric endocrinology. Multiple ultrasound studies. [...] (0.76-1.46 ng/dL), on levothyroxine 150 mcg daily. Elena's qmubrqj2105/20/2021 Overview: dignosed at age 4 Onvlvwozxpcglu11/24/2022documented as of this encounter (statuses as of 04/14/2022) [facility] Narrative* ProblemNoted Date Resolved DateGoiter, lbrhgat1805/20/2021 Overview: 2000: Around this time, age ~5 (first grade) was found to have hypothyroidism. Per patient, pediatricia felt lump in neck . 2000: Ultrasound of thyroid, at outside hospital: I dont have this to review. 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 Started on a dose of levothyroxine. 1221-5404: Followed by pediatric endocrinology. Multiple ultrasound studies. [...] (0.76-1.46 ng/dL), on levothyroxine 150 mcg daily. Elena's jtcxpck8105/20/2021 Overview: dignosed at age 4 Kqanprcyocnyof26/24/2022documented as of this encounter (statuses as of 04/18/2022) [facility] History of Past illness Narrative* ProblemNoted Date Resolved DateGoiter, mikbfvd5705/20/2021 Overview: 2000: Around this time, age ~5 (first grade) was found to have hypothyroidism. Per patient, pediatricia felt lump in neck . 2000: Ultrasound of thyroid, at outside hospital: I dont have this to review. 2001: Told Hashimotos thyroiditis . Started on a dose of levothyroxine. 8366-7103: Followed by pediatric endocrinology. Multiple ultrasound studies. [...] (0.76-1.46 ng/dL), on levothyroxine 150 mcg daily. Elena's qkmpvub6405/20/2021 Overview: dignosed at age 4 Zrozmvmniuqjjs40/24/2022documented as of this encounter (statuses as of 04/18/2022) [facility] History of Past illness Narrative* ProblemNoted Date Resolved DateGoiter, guvmlvm7105/20/2021 Overview: 2000: Around this time, age ~5 (first grade) was found to have hypothyroidism. Per patient, pediatricia felt lump in neck . 2000: Ultrasound of thyroid, at outside hospital: I dont have this to review. 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 Started on a dose of levothyroxine. 9591-8347: Followed by pediatric endocrinology. Multiple ultrasound studies. [...] (0.76-1.46 ng/dL), on levothyroxine 150 mcg daily. Elena's pedwigc4005/20/2021 Overview: dignosed at age 4 Vtgznyndvsjgfh80/24/2022documented as of this encounter (statuses as of 05/11/2022) [facility] History of Past illness Narrative* ProblemNoted Date Resolved DateGoiter, oxwgdpj8805/20/2021 Overview: 2000: Around this time, age ~5 (first grade) was found to have hypothyroidism. Per patient, pediatricia felt lump in neck . 2000: Ultrasound of thyroid, at outside hospital: I dont have this to review. 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 Started on a dose of levothyroxine. 8175-1376: Followed by pediatric endocrinology. Multiple ultrasound studies. [...] (0.76-1.46 ng/dL), on levothyroxine 150 mcg daily. Elena's mbamtln8105/20/2021 Overview: dignosed at age 4 Sfrorhyhlduwnh16/24/2022documented as of this encounter (statuses as of 05/12/2022) [facility] History of Past illness Narrative* ProblemNoted Date Resolved DateGoiter, bcxctov8605/20/2021 Overview: 2000: Around this time, age ~5 (first grade) was found to have hypothyroidism. Per patient, pediatricia felt lump in neck . 2000: Ultrasound of thyroid, at outside hospital: I dont have this to review. 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 Started on a dose of levothyroxine. 3940-8678: Followed by pediatric endocrinology. Multiple ultrasound studies. [...] (0.76-1.46 ng/dL), on levothyroxine 150 mcg daily. Elena's sljlmdc0905/20/2021 Overview: dignosed at age 4 Hfupeqapeiwzec81/24/2022documented as of this encounter (statuses as of 05/13/2022) [facility] History of Past illness Narrative* ProblemNoted Date Resolved DateGoiter, sdpzmlx6905/20/2021 Overview: 2000: Around this time, age ~5 (first grade) was found to have hypothyroidism. Per patient, pediatricia felt lump in neck . 2000: Ultrasound of thyroid, at outside hospital: I dont have this to review. 2001: Told Hashimotos thyroiditis . Started on a dose of levothyroxine. 7009-8874: Followed by pediatric endocrinology. Multiple ultrasound studies. [...] (0.76-1.46 ng/dL), on levothyroxine 150 mcg daily. Elena's rqdsjti3205/20/2021 Overview: dignosed at age 4 Fmoakmvacuetvh22/24/2022documented as of this encounter (statuses as of 06/01/2022) [facility] History of Past illness Narrative* ProblemNoted Date Resolved DateGoiter, lmdramm8805/20/2021 Overview: 2000: Around this time, age ~5 (first grade) was found to have hypothyroidism. Per patient, pediatricia felt lump in neck . 2000: Ultrasound of thyroid, at outside hospital: I dont have this to review. 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 Started on a dose of levothyroxine. 1121-4622: Followed by pediatric endocrinology. Multiple ultrasound studies. [...] (0.76-1.46 ng/dL), on levothyroxine 150 mcg daily. Elena's ssgbqtv0105/20/2021 Overview: dignosed at age 4 Pwfkcsrucehfsc14/24/2022documented as of this encounter (statuses as of 07/29/2022) [facility] History of Past illness Narrative* ProblemNoted Date Resolved DateGoiter, nzxwzbj0405/20/2021 Overview: 2000: Around this time, age ~5 (first grade) was found to have hypothyroidism. Per patient, pediatricia felt lump in neck . 2000: Ultrasound of thyroid, at outside hospital: I dont have this to review. 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 Started on a dose of levothyroxine. 9343-2468: Followed by pediatric endocrinology. Multiple ultrasound studies. [...] (0.76-1.46 ng/dL), on levothyroxine 150 mcg daily. Elena's jbutxtp3305/20/2021 Overview: dignosed at age 4 Ofrxpvtbgxxhgn48/24/2022documented as of this encounter (statuses as of 08/26/2022) [facility] History of Past illness Narrative* ProblemNoted Date Diagnosed DateResolved DateGoiter, omjmbaj2705/20/2021 Overview: 2000: Around this time, age ~5 (first grade) was found to have hypothyroidism. Per patient, pediatricia felt lump in neck . 2000: Ultrasound of thyroid, at outside hospital: I dont have this to review. 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 Started on a dose of levothyroxine. 6901-3046: Followed by pediatric endocrinology. Multiple ultrasound studies. [...] (0.76-1.46 ng/dL), on levothyroxine 150 mcg daily. Elena's lfynkyf5205/20/2021 Overview: dignosed at age 4 Thtortahesibsr12/24/2022documented as of this encounter (statuses as of 09/21/2022) [facility] History of Past illness Narrative* ProblemNoted Date Diagnosed DateResolved DateGoiter, nvtkgxc0005/20/2021 Overview: 2000: Around this time, age ~5 (first grade) was found to have hypothyroidism. Per patient, pediatricia felt lump in neck . 2000: Ultrasound of thyroid, at outside hospital: I dont have this to review. 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 Started on a dose of levothyroxine. 4763-9915: Followed by pediatric endocrinology. Multiple ultrasound studies. [...] (0.76-1.46 ng/dL), on levothyroxine 150 mcg daily. Elena's nztbwgo3305/20/2021 Overview: dignosed at age 4 Jonlwpbniewbrd46/24/2022documented as of this encounter (statuses as of 11/02/2022) [facility] History of Past illness Narrative* ProblemNoted Date Diagnosed DateResolved DateGoiter, zzihamk0205/20/2021 Overview: 2000: Around this time, age ~5 (first grade) was found to have hypothyroidism. Per patient, pediatricia felt lump in neck . 2000: Ultrasound of thyroid, at outside hospital: I dont have this to review. 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 Started on a dose of levothyroxine. 9888-9704: Followed by pediatric endocrinology. Multiple ultrasound studies. [...] (0.76-1.46 ng/dL), on levothyroxine 150 mcg daily. Elena's helarww2005/20/2021 Overview: dignosed at age 4 Ktqlwncnonvaph98/24/2022documented as of this encounter (statuses as of 06/12/2023) [facility] Instructions* Patient Instructions* Jose Leroy MD - 05/20/2021 8:27 AM EDT Levothyroxine / Synthroid use guidelines: Levothyroxine (brand names Synthroid, Levoxyl, Unithroid, or generic levothyroxine) is best taken all by itself, and with an empty stomach. The three best times to take the levothyroxine are: 1. In the morning (ideally the first thing you do when you wake up). See coffee issue, below. 2. At bedtime (if no other medicines or supplements at that time, and few hours after last food.) 3. In the middle of the night, when you wake up to urinate. This may be the ideal time, as it allows multiple hours prior to any other beverage/food or pill(s). Take the levothyroxine with water (and water only, no other type of beverages). Take one hour before any coffee, as coffee has been shown to interfere with the absorption of the levothyroxine. Take (at least) one hour prior to any other medicines. I prefer three hours, especially if the medication or supplement has iron or calcium. Take on empty stomach (one hour prior to food or three (or more) hours after a meal.) If you forget to take a dose, then its is ok to take two pills the next day. [facility] History of Present illness Narrative* Jose Leroy MD - 05/20/2021 8:22 AM EDT Images from the original note were not included. . [facility] General Endocrinology - [address], [address] General Endocrinology - [address], [address] [place] [address] Patient's name: Keysha Gardner Patient's date of : 1995 Date of encounter: 05/20/2021 History of present illness: Keysha Gardner is a 25 year old female who presents for follow up of an endocrinology issue. Thyroid gland disorder: Previous history: 2000: Around this time, age ~5 (first grade) was found to have hypothyroidism. Per patient, policy adviser felt lump in neck . 2000: Ultrasound of thyroid, at outside hospital: I dont have this to review. 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 Started on a dose of levothyroxine. 0734-9458: Followed by pediatric endocrinology. Multiple ultrasound studies. No fine needle aspiration biopsy , per patient. 04/2014: Started oral contraceptive pills. 07/2014: Initial consultation here. TSH 3.960 (0.358-3.740 uIU/mL), free T4 1.52 [...] (0.76-1.46 ng/dL), on levothyroxine 150 mcg daily. 07/2015: TSH 0.865 (0.358-3.740 uIU/mL), free T4 1.45 (0.76-1.46 ng/dL), on levothyroxine 150 mcg daily. 07/2015: Ultrasound, intra-office: Heterogeneous gland. Right lobe 50.6 x 15.0 x 11.4 mm (length x width x depth) Left lobe 48.7 x 15.2 x 8.1 mm (length x width x depth) Isthmus 2.1 mm depth. No distinct nodules or cysts. No suspicious nodes in neck levels (bilateral) , VII, IV, III, IIa, IIb. 05/2016: TSH 0.376 (0.358-3.740 uIU/mL), free T4 1.50 (0.76-1.46 ng/dL), free T3 3.2 (2.2-4.0 pg/mL), on levothyroxine 150 mcg daily. Some tachycardia issues. I lowered her to levothyroxine 137 mcg daily. 05/2016: Thyroid Stimulating Immunoglobulin (TSI) 43 (<150 %), this was checked due to symptoms. 09/2016: TSH 2.560 (0.358-3.740 uIU/mL), free T4 1.33 (0.76-1.46 ng/dL), free T3 2.8 (2.2-4.0 pg/mL), on levothyroxine 137 mcg daily. Now with some fatigue issues, and cardiac issues resolved. Patientwanted re-trial of the 150 mcg dose. I changed her to levothyroxine 150 mcg daily. 06/2017: TSH 1.090 (0.358-3.740 uIU/mL), free T4 1.74 (0.76-1.46 ng/dL), free T3 3.0 (2.2-4.0 pg/mL), on levothyroxine 150 mcg daily. 06/2018: TSH 3.330 (0.358-3.740 uIU/mL), free T4 1.50 (0.76-1.46 ng/dL), free T3 2.7 (2.2-4.0 pg/mL), on levothyroxine 150 mcg daily. I increased her dose to levothyroxine 175 mcg daily. 08/2018: TSH 0.435 (0.400 - 5.500 uU/mL), free T4 1.8 (0.9-1.7 ng/dL), free T3 3.1 (2.3-4.1 pg/mL), on levothyroxine 175 mcg daily. This was a lab appointment due to symptoms. 05/2019: TSH 0.19 (0.44-3.98 mIU/L), free T4 1.16 (0.61-1.12 ng/dL), free T3 3.2 (2.3-4.2 pg/mL), onlevothyroxine 175 mcg daily. I lowered her to levothyroxine 150 mcg daily. 08/2019: TSH 5.220 (0.270-4.200 uIU/mL), on levothyroxine 150 mcg daily. I changed her to levothyroxine 150 mcg x 7.5 pills per week (mean dose 161 mcg daily.) this was a lab appointment due to symptoms. 10/2019: TSH 1.420 (0.270-4.200 uU/mL), free T4 2.5 (0.9-1.7 ng/dL), on levothyroxine 150 mcg x 7.5 pills per week (mean dose 161 mcg daily.) 12/2019: TSH 0.276 (0.270-4.200 uU/mL), free T4 2.2 (0.9-1.7 ng/dL), on levothyroxine 150 mcg x 7.5pills per week, mean daily dose 161 mcg. 05/2020: TSH 0.555 (0.270-4.200 uIU/mL), free T4 2.1 (0.9-1.7 ng/dL), free T3 3.5 (2.3-4.1 pg/mL), on levothyroxine 150 mcg x 7.5 pills per week, mean dose 161 mcg. 05/2020: [facility]: Right lobe 48.9 x 12.0 x 13.3 mm (length x width x depth), Left lobe 49 x14.5 x 11.0 mm (length x width x depth), Isthmus 2.3 mm (length x width x depth). Heterogeneity in both lobes. No distinct nodules. 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 Interval history: The patient now returns for re-evaluation and follow-up. The above history was re-confirmed. When asked how she feels overall, she responded been feeling pretty good She is on levothyroxine at 150 micrograms x 7.5 total pills per week (mean dose 161 mcg). The levothyroxine is administered when she wakes up to start the day, with water. Other meds taken at the time of the levothyroxine include: none. Otherwise, the next time any meds are taken is typically at least few hours later. Coffee: 1+ hours Compliance with the levothyroxine is reported as good. Anterior neck compression symptoms: No overt or daily dysphagia of solids, liquids or pills. No overt globus sensation in neck. No new or existing hoarseness. No anterior neck compression / feeling of external pressure. Denies clearing of throat. Denies cough. Biotin use (vitamin B-7) : Use of ayau-hgd-amhprji, high dose, biotin supplement: None. Use of Jxfs-Fgrg-Wudh vitamins, or similar formulation with high-dose biotin: None. Use of B-complex vitamin preparations with high-dose biotin: None. Use of vwfp-anl-ibyzrwl leave-in hair conditioners that contain biotin: None. Other endocrine history: 05/2015: random glucose 85 mg/dL, 05/2016: HbA1c 5.2% at outside lab. 06/18/2016: plasma fractionated metanephrine 20 (0-62 pg/mL), normetanephrine 38 (0-145 pg/mL), Allergies, medications, medical and surgical history, family history and social history, and problem list reviewed. Preferred pharmacy for the medications I prescribe (or may prescribe) is: [place] [address] - [address] [phone] Review of Systems Review of Systems Constitutional: Negative for malaise/fatigue. Respiratory: Negative for shortness of breath. Cardiovascular: Negative for chest pain. Musculoskeletal: Negative for joint pain. Neurological: Negative for tremors. 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 Migraine, intractable Paroxysmal spells UPJ (ureteropelvic junction) obstruction PAST SURGICAL HISTORY Procedure Laterality Date FOOT SURGERY HX Right 2007 foot surgery for infection from nail KIDNEY SURGERY HX R kidney Pyeloplasty FAMILY HISTORY Problem Relation Age of Onset Gall Stones Mother Asthma Sister Heart Sister Dysrhythmia, tonya issue Lymphoma Maternal Grandmother Systemic Lupus Erythematosus Maternal Grandmother Crohn's Disease Maternal Grandmother Thyroid Maternal Grandfather Unclear thyroid issue Asthma Maternal Grandfather Diabetes Paternal Grandmother Diabetes Paternal Grandfather Social History Tobacco Use Smoking status: Never Smoker Smokeless tobacco: Never Used Vaping Use Vaping Use: Never used Substance Use Topics Alcohol use: No Drug use: No Medications Current Outpatient Medications Medication Sig Dispense Refill letrozole (FEMARA) 2.5 mg tablet Take 2.5 mg by mouth as directed. metoprolol tartrate, short acting, (LOPRESSOR) 25 mg tablet Take 25 mg by mouth as needed. ubrogepant (UBRELVY) 100 mg tablet Take 100 mg by mouth as needed. levothyroxine (SYNTHROID) 150 mcg tablet One tablet daily Mondays through Saturdays. One and one-half tablets each Monday 100 tablet 3 SUMAtriptan (IMITREX) 100 mg tablet Take 100 mg by mouth as needed. albuterol (PROVENTIL) 2.5 mg /3 mL (0.083 %) nebulizer solution Use 2.5 mg via nebulizer as needed. cetirizine (ZYRTEC) 10 mg tablet Take 10 mg by mouth as needed. montelukast (SINGULAIR) 10 mg tablet Take 10 mg by mouth at bedtime as needed. albuterol HFA (PROVENTIL HFA, VENTOLIN HFA) 90 mcg/actuation inhaler Inhale 2 Puffs as instructed every 6 hours. 1 Inhaler 0 triamcinolone acetonide (KENALOG) 0.1 % cream Apply 1 application to affected area as needed. No current facility-administered medications for this visit. Physical Examination and Vitals BP 120/73 Pulse 87 Ht 5' 10 (1.78m) Wt 154 lb 9.6 oz (70.1kg) BMI 22.18 kg/(m^2). Last 5 Encounter Wt Readings: Date: Wt: 06/03/2020 68.1 kg (150 lb 3.2 oz) 07/09/2018 68.7 kg (151 lb 8 oz) 07/26/2017 65.3 kg (144 lb) 10/05/2016 62.6 kg (138 lb) 06/10/2016 62.6 kg (138 lb) Physical Exam Vitals reviewed. Constitutional: Appearance: She is not toxic-appearing or diaphoretic. HENT: Head: Normocephalic and atraumatic. Eyes: General: No scleral icterus. Neck: Thyroid: No thyroid mass, thyromegaly or thyroid tenderness. Cardiovascular: Rate and Rhythm: Normal rate and regular rhythm. Heart sounds: No murmur heard. Pulmonary: Effort: Pulmonary effort is normal. No respiratory distress. Breath sounds: Normal breath sounds. No wheezing, rhonchi or rales. Lymphadenopathy: Head: Right side of head: No submandibular, tonsillar or preauricular adenopathy. Left side of head: No submandibular, tonsillar or preauricular adenopathy. Cervical: No cervical adenopathy. Skin: General: Skin is warm. Neurological: Mental Status: She is alert and oriented to person, place, and time. Cranial Nerves: Cranial nerves are intact. Motor: No tremor (No tremor of outstretched hands). Psychiatric: Mood and Affect: Mood and affect normal. Judgment: Judgment normal. Assessment and Plans: 1. 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 Reviewed thyroid hormone level goals. Reviewed issues with hypothyroidism and levothyroxine. She will contact if prior to next appointment. I will check her thyroid hormone levels. Once those are reviewed, then I will adjust the dose(s) asneeded. Will send an electronic prescription to local pharmacy in 90 day supplies, once data reviewed. Preferred pharmacy for the medications I prescribe (or may prescribe) is: [place] [address] - [address] [phone] - TSH BLD; Future - T4 FREE/FREE THYROX; Future - T3 FREE BLD; Future - T4/THYROXINE BLOOD; Future 2. Long-term current use of thyroid hormone replacement therapy Levothyroxine I reviewed the use of levothyroxine products. 3. Elena's disease Treat with levothyroxine 4. Family history of thyroid disease Jose Leroy MD [facility] General Endocrinology - [place] [facility]* Encounter Date Diagnosis Assessment Notes Treatment Notes Treatment Clinical Notes Apr, Ear pain, right (ICD-10 - H92.01 ) Encouraged warm compresses TID, use of topical mupirocin, provided in clinic. Should get better over days. Hopeful for spontaneous expression although no significant deformity to imply significant fluid retention. Reach out for lack of resolution, worsening or increased swelling. Do not manipulate or attempt evacuation of pore. May need to see dermatology If no resolution as we will not express your cartilage in clinic. Could seek evaluation from PCP first I do not believe systemic antibiotics warranted at this time. [employer] Other 12-21-2021 Evaluation note* Encounter Date Diagnosis Assessment Notes Treatment Notes Treatment Clinical Notes Jan, Encounter for immunization (ICD- 10 - Z23) Patient presents for COVID-19 vaccination #2. Pre-screening form answers evaluated with patient. Patient denies current illness or allergic reaction to component of COVID-19 vaccine. Patient providedwith current copy of EUA. [employer] Other 11-23-2021 Evaluation note* Encounter Date Diagnosis Assessment Notes Treatment Notes Treatment Clinical Notes Dec, Encounter for immunization (ICD- 10 - Z23) Patient presents for COVID-19 vaccination #1. Pre-screening form answers evaluated with patient. Patient denies current illness or allergic reaction to component of COVID-19 vaccine. Patient providedwith current copy of EUA. PATIENT MONITORED FOR 15 MINUTES POST VACCINATION WITHOUT ANY REACTIONS. [employer] Other 08-27-2021 History of Present illness Narrative* Juan R Bhagat Jr., DONALD - 10/23/2020 8:27 AM EDT Cellulitis Patient is a pleasant 25-year-old female following up today for right foot cellulitis after possible foreign body injury. She states that she is appropriately taking and nearly finished with her antibiotics doxycycline and ampicillin. She states that her pain is reduced she is tremendously improvedshe is very optimistic and happy with her improvement. Physical Vascular: DP PT pulses are easily palpable 2-4. CFT is fair. Edema is tremendously improved in the last week. Derm: Dorsal erythema is 100% resolved plantar erythema is resolved. Prior incision site is fully coapted without any gapping draining erythema. No deep fluctuance or crepitation. Neuro: Light touch is normal Babinski's is normal Musculoskeletal: Muscle strength is 5 out of 5 with fair tone. Can easily wiggle toes without any clicking or catching. Ankle midtarsal daily is full and pain-free. Assessment and plan Patient is a pleasant 25-year-old female with resolved right foot cellulitis with dual antibiotic therapy. -At this time no refills of antibiotics required. She can closely monitor her foot and return if there is any return of erythema for elongated antibiotics. At this time given her substantial improvement no need for admission. Straightforward medical complexity decision making. documented in this [id number] Instructions* Patient Instructions* Juan R Bhagat Jr., DPM - 10/23/2020 8:27 AM EDT Monitor foot. Return if redness returns. documented in this [id number] History of Present illness Narrative* Juan R Bhagat Jr., DPM - 10/15/2020 4:27 PM EDT Right foot infection Patient is a pleasant 25-year-old female following up for right foot cellulitis and possible foreign body. She states that she did fairly well on the oral cephalexin however since has been finished, she states the redness returned with the swelling. Additionally the pain returned she states that she does not feel that her foot is as well as she hoped. Additionally she states that she did find outthat she is not therefore treatment can advance. Rates the pain is mild to moderate in nature puffy swollen. Physical Vascular: DP PT pulses are easily palpable 2 out of 4. CFT is fair mild right forefoot edema none to the left. Derm: Erythema present to the dorsal midfoot and surrounding the second third digit. The previous incision site is fully healed coapted without any gapping draining or erythema. Neuro: Light touch is normal Babinski's is normal. Musculoskeletal: Muscle strength is 5/5 with fair tone, can easily wiggle toes not any clicking or catching. X-rays taken AP oblique lateral: No obvious foreign body appreciated. No gas in tissue no cortical loss. Mild forefoot edema present. Assessment plan: Patient is a pleasant 25-year-old female with worsening cellulitis right forefoot and mild concern for foreign body. 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 -Unfortunately there is no draining or no output therefore nothing to culture to better direct antibiotic therapy. -Did start oral doxycycline 100 mg twice daily for 10 days 20 tabs 0 refills. -Did start oral ampicillin 500 mg every 6 hours 10 days 40 tabs 0 refills. Okay to soak. Try to focus weight to heal and follow-up in 1 week to review. If patient fails, may need to consider IV antibiotics. -Low medical complexity decision making based on up titration of care. documented in this [id number] Instructions* Patient Instructions* Juan R Bhagat Jr., DPM - 10/15/2020 4:26 PM EDT [facility] [place] to soak foot daily. documented in this [id number] History of Present illness Narrative* Juan R Bhagat Jr., DPM - 10/02/2020 3:33 PM EDT HPI Chief Complaint Patient presents with Foreign Body Splinter under right 2nd and 3rd toes. States she pulled it out Monday. Two days later swollen, hard and red. Patient is a pleasant 25-year-old female who comes in today with a 2-day history of right foot painswelling tenderness. She states that she was out doing some gardening and thinks that she got a splinter in the bottom of her foot while wearing a pair of slip on shoes. She pulled it out with a pairtweezers but states the redness only got worse across the next 2 days. She is quite concerned as when she was a teenager, and her left foot she had a injury stepping on a nail getting ultimately septic arthritis and osteomyelitis requiring a PICC line therefore is quite concerned. Additionally states that she might be though she is just not sure worried about this as well. Past Medical History: Diagnosis Date Hx of Elena thyroiditis Past Surgical History: Procedure Laterality Date I&D EXTREMITY Left patient had steped on a nail in hallux joint KIDNEY SURGERY Social History Socioeconomic History Marital status: Spouse name: Not on file Number of children: Not on file Years of education: Not on file Highest education level: Not on file Occupational History Not on file Tobacco Use Smoking status: Never Smoker Smokeless tobacco: Never Used Substance and Sexual Activity Alcohol use: Yes Comment: occasional social Drug use: Never Sexual activity: Not on file Other Topics Concern Not on file Social History Narrative Not on file Social Determinants of Health Financial Resource Strain: Difficulty of Paying Living Expenses: Food Insecurity: Worried About Running Out of Food in the Last Year: Ran Out of Food in the Last Year: Transportation Needs: Lack of Transportation (Medical): Lack of Transportation (Non-Medical): Physical Activity: Days of Exercise per Week: Minutes of Exercise per Session: Stress: Feeling of Stress : Social Connections: Frequency of Communication with Friends and Family: Frequency of Social Gatherings with Friends and Family: Attends Religion Services: Active Member of Clubs or Organizations: Attends Club or Organization Meetings: Marital Status: Review of Systems Constitutional: Negative for chills and fever. Gastrointestinal: Negative for nausea and vomiting. Musculoskeletal: Positive for gait problem and joint swelling. Skin: Positive for color change and wound. Negative for rash. Physical Exam Patient is alert and oriented to person place and time. Linear appropriate humor and thought process. Vascular: DP PT pulses are easily palpable 2-4. Does have erythema and edema surrounding her secondand third MPJ. Derm: Subtle plantar wound subsecond and third toe with surrounding erythema. No purulence no streaking no lymphangitis. No deep palpable nodules. Neuro: Light touch is normal Babinski's is normal. Musculoskeletal: Muscle strength is 5/5 with fair tone. Can easily wiggle toes without any clickingor catching Impression/Plan Problem List Items Addressed This Visit None Visit Diagnoses Foreign body (FB) in soft tissue - Primary Relevant Medications lidocaine-EPINEPHrine (XYLOCAINE W/EPI) 2 %-1:100,000 injection 1 mL (Start on 10/02/2020 4:30 PM) Acute foot pain, right Patient is a pleasant 25-year-old female with likely right foot foreign body and cellulitis. -Based on her risk of , did recommend a x-ray though she declined. -Additionally based on lack of imaging, went over options including treating with antibiotics versus an I&D versus both and together decided on treating with both. -Did start her on oral cephalexin 500 mg every 6 hours for 7 days 20 tabs 0 refills. Addition-in terms of incision and drainage, this does come with clear and obvious risk including worsening of her foreign body pain tingling burning scarring infection osteomyelitis amputation and pain tingling burning scarring. Despite this clear and obvious risks she does wish to proceed. No guarantees were implied in her consent was signed and documented in the EMR. Procedure: Foreign body removal After a timeout consent was performed, and alcohol prep, did block the foot with 1 cc of 1% lidocaine plain and 1 cc of 2% lidocaine with epinephrine 1: 100,000. -At this time plantar to the second third digit, 1 cm incision was made with a 15 blade full-thickness to fat. Sharp blunt dissection was used to curette the superficial fascia. Vacurette was used toattempt to find a foreign body and none was appreciated. The site was manipulated appropriately andagain no foreign body appreciated. -Therefore the site was closed with Dermabond and a postop bandage applied consisting of Adaptic 4 x 4 Kerlix Cale bandage. Low medical complexity decision making based on risk, overall risk and need for procedure. documented in this encounterOhioHealthChief complaint Narrative - ReportedThe patient is being seen today at the request of Dr. 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 Long-term current use of thyroid hormone replacement therapy Elena's disease Chronic lymphocytic thyroiditis Family history of thyroid disease Family history of other endocrine and metabolic diseases documented in this encounter [facility] note* Diagnosis 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 documented in this encounter [facility] note* Diagnosis 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 documented in this encounter [facility] noteNo assessment information availableThe [facility] Work Phone: Evaluation note* Diagnosis 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 documented in this encounter [facility] note* Diagnosis 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 Thyroid dysfunction in in first trimester Thyroid dysfunction, antepartum documented in this encounter [facility] note* Diagnosis 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 documented in this encounter [facility] note* Diagnosis 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 Long-term current use of thyroid hormone replacement therapy Elena's disease Chronic lymphocytic thyroiditis Family history of thyroid disease Family history of other endocrine and metabolic diseases documented in this encounter [facility] note* Diagnosis 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 Long-term current use of thyroid hormone replacement therapy Elena's disease Chronic lymphocytic thyroiditis Family history of thyroid disease Family history of other endocrine and metabolic diseases [facility] Diagnosis 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 [facility] Diagnosis 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 Long-term current use of thyroid hormone replacement therapy Elena's disease Chronic lymphocytic thyroiditis Family history of thyroid disease Family history of other endocrine and metabolic diseases [facility]* Diagnosis 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 Encounter for medication management Encounter for long-term (current) use of other medications Long-term current use of levothyroxine Elena's disease Chronic lymphocytic thyroiditis Family history of thyroid disease Family history of other endocrine and metabolic diseases [facility]* Diagnosis Elena's thyroiditis (CMS/HCC) Chronic lymphocytic thyroiditis History of miscarriage Personal history of other genital system and obstetric disorders [facility] Diagnosis PCOS (polycystic ovarian syndrome) Polycystic ovaries Thyroid disease Unspecified disorder of thyroid History of miscarriage Personal history of other genital system and obstetric disorders Elena's thyroiditis Chronic lymphocytic thyroiditis Thyroid disease Unspecified disorder of thyroid Elena's thyroiditis Chronic lymphocytic thyroiditis [facility] Diagnosis Autoimmune thyroiditis- Primary [facility]* Diagnosis Autoimmune thyroiditis [facility]* Diagnosis Elena's thyroiditis Chronic lymphocytic thyroiditis Infertility counseling History of miscarriage Personal history of other genital system and obstetric disorders [facility]* Diagnosis Wellness examination- Primary Polycystic ovary syndrome Polycystic ovaries Elena's thyroiditis Chronic lymphocytic thyroiditis [facility] general Narrative - Reported* Type Description Date Medical History hashimotos thyroiditis Surgical HistoryUPJ obstructionSurgical HistoryFoot Surgery, right Hospitalization Historyimmune [id number] [employer] Other Hisfgjf general Narrative - Reported* Type Description Date Medical History hashimotos thyroiditis Medical HistoryInfertilitySurgical HistoryUPJ obstructionSurgical HistoryFoot Surgery, rightHospitalization Historyimmune [id number] [employer] Other Hislnul general Narrative - Reported* Type Description Date Medical History hashimotos thyroiditis Medical HistoryInfertilityMedical HistoryAsthmaSurgical HistoryUPJ obstruction Surgical HistoryFoot Surgery, rightHospitalization Historyimmune [id number] [employer] Other History of Past illness Narrative* ProblemNoted Date Resolved DateGoiter, zuswcbl2105/20/2021 Overview: 2000: Around this time, age ~5 (first grade) was found to have hypothyroidism. Per patient, pediatricia felt lump in neck . 2000: Ultrasound of thyroid, at outside hospital: I dont have this to review. 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 Started on a dose of levothyroxine. [id number]: Followed by pediatric endocrinology. Multiple ultrasound studies. [...] (0.76-1.46 ng/dL), on levothyroxine 150 mcg daily. Elena's vsomdjx1205/20/2021 Overview: dignosed at age 4 Hfobfudcaatdks24/24/2022documented as of this encounter (statuses as of 05/20/2021) [facility] N[facility]* New Patient Fertility * Referred by: Dr. Tafoya * Accompanied today by: , Surjit * DATE OF COVID VACCINE: yes, Moderna x 2 doses, no boosters * History of present illness: Patient is a 26 year old female who presents with primary infertility. * PRIOR EVALUATION / TREATMENT * NONE * RELATIONSHIP STATUS: x 2 years * OB Hx: (year, GA, mode, complications, name) * 09/2021: First trimester missed AB, ultrasound at 4 wga showed IUP, pt than had bleeding repeat u/s at 6 wga demonstrated missed AB, expectant management, no complications * LMP ; conceived spontaneous conception on Letrozole 7.5 mg and Metformin 500 mg ER PO daily,1st hcg level was 110 and repeat 48 hours later was 440, pt is on prometrium 200 mg PV once daily at bedtime * MIG WELDER HISTORY: * History of STI or PID: none * Last pap smear: 12/2021, normal, negative cytology, record reviewed [facility] * History of abnormal paps: yes, remote history >5 years ago, abnormal pap but normal colposcopy * Mammogram: no, N/a, no breast concerns, does have history of breast ultrasound right sided swelling, ultrasound was normal no follow up * Coitus: every other dayx/fertile week * Pelvic pain: none * Pain with intercourse, bowel movements or full bladder: none * MENSTRUAL HISTORY: * LMP: 04/04/22 * Menarche: 10 years old * Contraception: hx of cOCP use, stopped in 2019 * Cycle length: Q23-26 days but has had as long as a 35 day cycle previously * Bleeding length: Q7 days * Heavy bleeding: yes, 1st 2 days changes pad or tampon every hour * Dysmenorrhea: yes, mild cramps * ENDOCRINE/INFERTILITY HISTORY: * Duration of infertility: 2 years * Coital Activity/week: every other day * Nipple Discharge: none * Vision changes / headaches: hx migraines with aura, but not lately (within past 6 months only had 2migraines) * Excess hair growth: yes, chin hairs * Acne/oily skin: yes, cystic acne on face and back * Recent weight change: none * Exercise: intermittent, 2-3 days per week, no more than 30 min * PMH: Hypothyroidism/Hoshimotos diagnosed Age 4 (stable on Synthroid 150 mcg), PCOS diagnosed by * Asthma (well controlled) * MEDICATION: Synthroid, Metformin, PNV * PSH: UPJ obstruction right Kidney surgery in 2017, Orthopedic in 2007 * PSYCH HISTORY: none * SOCIAL HISTORY: * 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 * Smoking: none * Alcohol: none * Drug use: none * PARTNER HISTORY: * Name- Surjit Gardner * 07/30/91 * 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 * Prior fertility history: none * PMH: asthma, seasonal allergies, IBS * PSH: Lymph nodes removed from groin area * Smoking: none * Alcohol Use: social, 3 times per week * Drug Use: none * Medications: Albuterol, Montelukast, Zizal, Omeprazole * Injuries /STDs: Hx Chlamydia * [facility] * 9 million sperm * slightly low motility * FAMILY HISTORY: * Cancer history (breast, ovarian, colon): none * GENETIC HISTORY: * Ethnic Background: * Patient: * Partner: * Genetic Disease in Family: none * Defects in Family: none * Genetic screening performed previously: none [address] Work Phone: Hospital Discharge instructions No data available for this section [facility]InstructionsNot on filedocumented in this encounter [facility]ructionsNot on filedocumented in this encounter [facility] SystemInstructionsNot on filedocumented in this encounter [facility] SystemInstructionsNot on filedocumented in this encounter [facility] SystemInstructionsNot on filedocumented in this encounter [facility] System[facility]* Attachments The following attachments cannot be sent through Care Everywhere. * Polycystic ovary syndrome ([place]) documented in this encounterProDay[facility] SystemProgress note No data available for this section [facility] Summary Purpose Family History Grandparent Name Dates Details Family history of cerebrovas cular accident (CVA)(V17.1, Z82.3) Status:ActiveFamily history of malignant neoplasm(V16.9, Z80.9) Status:ActiveFamily history of diabetes mellitus(V18.0, Z83.3) Status:ActiveFamily history of myocardial infarction(V17.3, Z82.49) Status:Active Mother Name Dates Details Family history of Irregular heart beat(427.9, I49.9) Status:Active Sister Name Dates Details Family history of asthma(V17 .5, Z82.5) Status:Active Unknown Family Member Name Dates Details Irregular heart beat: Mother Status:ActiveFamily history of asthma: Sister(V17.5, Z82.5) Status:ActiveFamily history of cerebrovascular accident (CVA): Grandparent (V17.1, Z82.3) Status:ActiveFamily history of malignant neoplasm: Grandparent(V16.9, Z80.9) Status:ActiveFamily history of diabetes mellitus: Grandparent(V18.0, Z83.3) Status:ActiveFamily history of myocardial infarction: Grandparent(V17.3, Z82.49) Status:Active Advance Directives TypeDate RecordedPatient RepresentativeExplanationAdvance Directives and Living WillTypeDate RecordedPatient RepresentativeExplanationAdvance Directive(s) 04/19/2016 12:53 PMAdvance Directive(s)04/28/2015 1:29 PM Advance Directive Response Recorded Date/ Time Advance Directives No March 11:21am Chief Complaint and Reason for Visit Chief Complaint E34.9 Chief Complaint E34.9 fb in L eye Chief Complaint O20.9 issues e07.9; O03.9 O03.9 Chief Complaint O20.9 issues e07.9; O03.9 O03.9 O03.9 Additional Source Comments INFORMATION SOURCE (unrecogn ized section and content) DATE CREATED AUTHOR 11/29/2018 [facility] DATE CREATED AUTHOR AUTHOR'S ORGANIZ ATION 11/25/2019 [facility] DATE CREATED AUTHOR AUTHOR'S ORGANIZ ATION 12/20/2019 [facility] DATE CREATED AUTHOR AUTHOR'S ORGANIZ ATION 07/09/2020 [facility] DATE CREATED AUTHOR AUTHOR'S ORGANIZ ATION 07/22/2020 [facility] DATE CREATED AUTHOR AUTHOR'S ORGANIZ ATION 10/24/2020 [facility] DATE CREATED AUTHOR AUTHOR'S ORGANIZ ATION 11/27/2021 [facility] DATE CREATED AUTHOR AUTHOR'S ORGANIZ ATION 05/07/2022 [facility] DATE CREATED AUTHOR AUTHOR'S ORGANIZ ATION 08/05/2022 [facility] DATE CREATED AUTHOR AUTHOR'S ORGANIZ ATION 08/06/2022 [facility] DATE CREATED AUTHOR AUTHOR'S ORGANIZ ATION 08/20/2022 [facility] DATE CREATED AUTHOR AUTHOR'S ORGANIZ ATION 07/15/2023 [facility] DATE CREATED AUTHOR AUTHOR'S ORGANIZ ATION 01/17/2024 [facility] DATE CREATED AUTHOR AUTHOR'S ORGANIZ ATION 01/19/2024 [facility] DATE CREATED AUTHOR AUTHOR'S ORGANIZ ATION 03/22/2024 [facility] DATE CREATED AUTHOR AUTHOR'S ORGANIZ ATION 12/13/2024 [facility] DATE CREATED AUTHOR AUTHOR'S ORGANIZ ATION 12/17/2024 [facility] EPIC Reason for Visit (unrecogniz ed section and content) ReasonCommentsForeign BodySplinter under right 2nd and 3rd toes. States she pulled it out Monday. Two days later swollen, hard and red.ReasonCommentsForeign BodyReasonCommentsFollow-upR foot cellulitisReasonCommentsFollow Up HypothyroidismSpecialtyDiagnoses / ProceduresReferred By ContactReferred To ContactEndocrinology / ENDOCRINOLOGY Diagnoses hypothyroidism / 11 month Procedures EST PATIENT Jose Leroy MD [address] [place] [address] Jose Leroy MD [address] [place] [address] Referral IDStatusReasonStart DateExpiration DateVisits RequestedVisits [id number] OrdersMail to patientReasonCommentsLab OrdersFaxReasonCommentsAbstractChart updateReason CommentsHypothyroidismFollow UpThyroid ProblemSpecialtyDiagnoses / Procedures Referred By ContactReferred To ContactENDOCRINOLOGY Diagnoses 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 thyroiditis Procedures REFERRAL TO [facility] FINANCIAL COUNSELOR OFFICE/OUTPATIENT ESTABLISHED MOD MDM 30-39 MIN Jose Leroy MD [address] [place] [address] Endo Ag [facility] [address] [place] [address] Referral IDStatusReasonStart DateExpiration DateVisits RequestedVisits [id number] Financial Clearance Required - OON Payor OON Notification Letter Patient Cleared - Admin/Director Digital Sales/Director advise to proceed /[id number] / Procedures Referred By ContactReferred To ContactENDOCRINOLOGY Diagnoses Thyroid activity decreased Procedures OFFICE VISIT, EST PT., LEVEL 2 TC Jose Leroy MD [address] [place] [phone] Endo Ag [facility] [address] [place] [address] Referral IDStatusReasonStart DateExpiration DateVisits RequestedVisits [id number] OON/Self Pay Override Financial Clearance Required - OON Payor OON Notification Letter Patient Cleared - Admin/Director Digital Sales/Director advise to proceed /[id number] AppointmentReasonCommentsHypothyroidism Thyroid ProblemFollow UpSpecialtyDiagnoses / ProceduresReferred By Contact Referred To ContactENDOCRINOLOGY Diagnoses thyroid Procedures OFFICE/OUTPATIENT ESTABLISHED MOD MDM 30 MIN est Self Endo Ag [facility] [address] [place] [address] Referral IDStatusReasonStart DateExpiration DateVisits RequestedVisits [id number] OON Notification Letter Clearance not met - patient not scheduled & unable to contact patient Patient cleared - OON Required Payment Collected /[id number] RefillReasonCommentsPolycystic Ovary SyndromeHashimoto's ThyroiditisSpecialtyDiagnoses / ProceduresReferred By ContactReferred To ContactEndocrinology Diagnoses PCOS (polycystic ovarian syndrome) Thyroid disease History of miscarriage Elena's thyroiditis Gigi Tafoya, DO [address] [place] [address] Phone: tel: fax: [facility] [address] [place] [address] Phone: tel:[phone] fax: Referral IDStatusReasonStart DateExpiration DateVisits RequestedVisits [id number] Review Specialty Services Required /[id number]nXv present today follow up fertility.ReasonCommentswell adult Care Teams (unrecognized sec tion and content) Team MemberRelationshipSpecialtyStart DateEnd Date [facility] Hospital[facility] [address] [place] [address] [facility]10/02/20Team MemberRelationshipSpecialtyStart DateEnd Date [facility] [address] [place] [address] PCP - [facility]10/02/20Team MemberRelationshipSpecialtyStart DateEnd Date Lore Gardiner [address] [place] [address] PCP - GeneralFamily Practice06/10/16Team MemberRelationshipSpecialtyStart DateEnd Date LisbetwvLore morris [address] [place] [id number] PCP - Generalmily Practice06/10/16Team MemberRelationshipSpecialtyStart DateEnd Date [facility] [address] [place] [id number] [facility]06/10/16Team MemberRelationshipSpecialtyStart DateEnd Date [facility] [address] [place] [phone] PCP - [facility] Practice06/10/16 Team Status: Inactive Member Role Status Dates NON STAFF Primary Care Provider Active Gigi FazioAttending ProviderActive Team Status: Active Member Role Status Dates NON STAFF Primary Care Provider Active Team Status: Inactive Member Role Status Dates NON STAFF Primary Care Provider Active DANYA Rai-CEmergency ProviderActiveTeam MemberRelationshipSpecialty Start DateEnd Date LisbetwvLore morris MD [address] [place] [phone] PCP - [facility] Practice06/10/16Team MemberRelationshipSpecialtyStart DateEnd Date LisbetwvLore morris MD [address] [place] [phone] [facility]06/10/16Team MemberRelationshipSpecialtyStart DateEnd Date Chen Lucia MD [address] [place] [address] PCP - GeneralFamily Practice09/17/21Team MemberRelationshipSpecialtyStart DateEnd Date Chen Lucia MD [address] [place] [address] [phone] PCP - GeneralFamily Practice09/17/21Team MemberRelationshipSpecialtyStart DateEnd Date Chen Lucia MD [address] [place] [address] PCP - GeneralFamily Practice09/17/21Team MemberRelationshipSpecialtyStart DateEnd Date Chen Lucia MD [address] [place] [phone] PCP - GeneralFamily Practice09/17/21 Team Status: Inactive Member Role Status Dates Gigi Tafoya Attending Provider Active Harriet Arredondomedical center enterprisejerrell Care ProviderActive Team Status: Inactive Member Role Status Dates Chen Lucia MD Primary Care Provider Active Gigi Layttending ProviderActive Team Status: Inactive Member Role Status Dates Chen Lucia MD Primary Care Provider Active Marita Meraz ProviderActive Team Status: Inactive Member Role Status Dates Chen Lucia MD Primary Care Provider, Attending More gonzáles Active Team Status: Active Member Role Status Dates Chen Lucia MD Primary Care Provider Active Team MemberRelationshipSpecialtyStart DateEnd Date Chen Lucia MD [address] [place] [phone] PCP - GeneralFamily Medicine09/17/21Team MemberRelationshipSpecialtyStart DateEnd Date Chen Lucia MD [address] [place] [address] PCP - GeneralFamily Medicine09/17/21Team MemberRelationshipSpecialtyStart DateEnd Date Chen Lucia MD [address] [place] [phone] PCP - GeneralFamily Medicine09/17/21Team MemberRelationshipSpecialtyStart DateEnd Date Chen Lucia MD [address] [place] [address] [address] PCP - GeneralFamily Medicine09/17/21Team MemberRelationshipSpecialtyStart DateEnd Date Chen Lucia MD [address] [place] [address] PCP - GeneralFamily Medicine09/17/21Team MemberRelationshipSpecialtyStart DateEnd Date Chen Lucia MD [address] [place], [place] [id number] PCP - GeneralFamily Medicine09/17/21Team MemberRelationshipSpecialtyStart DateEnd Date Chen Lucia MD [address] [place], [place] [id number] PCP - GeneralFamily Medicine09/17/21Team MemberRelationshipSpecialtyStart DateEnd Date Chen Lucia MD [address] [place], [place] [id number] PCP - GeneralFamily Medicine09/17/21Team MemberRelationshipSpecialtyStart DateEnd Date Chen Lucia MD [address] [place], [place] [id number] PCP - GeneralFamily Medicine09/17/21Team MemberRelationshipSpecialtyStart DateEnd Date Chen Lucia MD PCP - GeneralFamily Medicine09/17/21Team MemberRelationshipSpecialtyStart DateEnd Date Chen Lucia MD PCP - GeneralFamily Medicine09/17/21Team MemberRelationshipSpecialtyStart DateEnd Date Chen Lucia MD PCP - GeneralFamily Medicine09/17/21Team MemberRelationshipSpecialtyStart DateEnd Date Chen Lucia MD PCP - GeneralFamily Medicine09/17/21Team MemberRelationshipSpecialtyStart DateEnd Date Chen Lucia MD PCP - GeneralFamily Medicine09/17/21Team MemberRelationshipSpecialtyStart DateEnd Date Chen Lucia MD PCP - GeneralFamily Medicine09/17/21Team MemberRelationshipSpecialtyStart DateEnd Date Chen Lucia MD [address] [place] [address] PCP - GeneralFamily Medicine08/02/22Team MemberRelationshipSpecialtyStart DateEnd Date Chen Lucia MD [address] [place] [address] PCP - GeneralFamily Medicine08/02/22Team MemberRelationshipSpecialtyStart DateEnd Date Chen Lucia MD [address] [place] [address] PCP - GeneralFamily Medicine04/14/22Team MemberRelationshipSpecialtyStart DateEnd Date Chen Lucia MD [address] [facility] [address] PCP - GeneralFamily Medicine04/14/22Team MemberRelationshipSpecialtyStart DateEnd Date Chen Lucia MD [address] [place] [address] PCP - GeneralFamily Medicine04/14/22Team MemberRelationshipSpecialtyStart DateEnd Date Chen Lucia MD [address] [place] [address] PCP - GeneralFamily Medicine04/14/22Team MemberRelationshipSpecialtyStart DateEnd Date Chen Lucia MD [address] [place] [address] PCP - GeneralFamily Medicine08/02/22Team MemberRelationshipSpecialtyStart DateEnd Date Chen Lucia MD [address] [place] [address] PCP - GeneralFamily Medicine04/14/22Team MemberRelationshipSpecialtyStart DateEnd Date Dariela Aquino, [facility] [address] [place] [address] PCP - GeneralFamily Medicine10/02/24Team MemberRelationshipSpecialtyStart DateEnd Date Chen Lucia MD [address] [place] [address] PCP - GeneralFamily Medicine08/02/22Team MemberRelationshipSpecialtyStart DateEnd Date Chen Lucia MD [address] [place] [address] PCP - GeneralFamily Medicine08/02/22Team MemberRelationshipSpecialtyStart DateEnd Date Chen Lucia MD [address] [place] [address] [facility]/02/22Team MemberRelationshipSpecialtyStart DateEnd Date Chen Lucia MD [address] [place] [address] PCP - [facility]08/02/22Team MemberRelationshipSpecialtyStart DateEnd Date Dariela Aquino APRN-[employer] [address] [place] [address] [facility] - [facility]10/02/24Te MemberRelationshipSpecialtyStart DateEnd Date Chen Lucia MD [address] [place] [address] PCP - [facility]08/02/22 Source Comments (unrecognize d section and content) In the event this informatio n is protected by the [facility] Confidentiality of Alcohol and Drug Abuse Patient Records regulations: The Federal rules restrict any use of the information to criminally investigate or prosecute any alcohol or drug abuse patient.[facility] HospitalIn the event this information is protected by the Federal Confidentiality of Alcohol and Drug Abuse Patient Records regulations: The Federal rules restrict any use of the information to criminally investigate or prosecute any alcohol or drug abuse patient.[facility] HospitalIn the event this information is protected by the Federal Confidentiality of Alcohol and Drug Abuse Patient Records regulations: The Federal rules restrict any use of the information to criminally investigate or prosecute any alcohol or drug abuse patient.[facility] HospitalIn the event this information is protected by the Federal Confidentiality of Alcohol and Drug Abuse Patient Records regulations: The Federal rules restrict any use of the information to criminally investigate or prosecute any alcohol or drug abuse patient.[facility] HospitalIn the event this information is protected by the Federal Confidentiality of Alcohol and Drug Abuse Patient Records regulations: The Federal rules restrict any use of the information to criminally investigate or prosecute any alcohol or drug abuse patient.[facility] HospitalIn the event this information is protected by the Federal Confidentiality of Alcohol and Drug Abuse Patient Records regulations: The Federal rules restrict any use of the information to criminally investigate or prosecute any alcohol or drug abuse patient.[facility] HospitalIn the event this information is protected by the Federal Confidentiality of Alcohol and Drug Abuse Patient Records regulations: The Federal rules restrict any use of the information to criminally investigate or prosecute any alcohol or drug abuse patient.[facility] HospitalIn the event this information is protected by the Federal Confidentiality of Alcohol and Drug Abuse Patient Records regulations: The Federal rules restrict any use of the information to criminally investigate or prosecute any alcohol or drug abuse patient.[facility] HospitalIn the event this information is protected by the Federal Confidentiality of Alcohol and Drug Abuse Patient Records regulations: The Federal rules restrict any use of the information to criminally investigate or prosecute any alcohol or drug abuse patient.[facility] HospitalIn the event this information is protected by the Federal Confidentiality of Alcohol and Drug Abuse Patient Records regulations: The Federal rules restrict any use of the information to criminally investigate or prosecute any alcohol or drug abuse patient.[facility] HospitalIn the event this information is protected by the Federal Confidentiality of Alcohol and Drug Abuse Patient Records regulations: The Federal rules restrict any use of the information to criminally investigate or prosecute any alcohol or drug abuse patient.[facility] HospitalIn the event this information is protected by the Federal Confidentiality of Alcohol and Drug Abuse Patient Records regulations: The Federal rules restrict any use of the information to criminally investigate or prosecute any alcohol or drug abuse patient.[facility] HospitalIn the event this information is protected by the Federal Confidentiality of Alcohol and Drug Abuse Patient Records regulations: The Federal rules restrict any use of the information to criminally investigate or prosecute any alcohol or drug abuse patient.[facility] HospitalIn the event this information is protected by the Federal Confidentiality of Alcohol and Drug Abuse Patient Records regulations: The Federal rules restrict any use of the information to criminally investigate or prosecute any alcohol or drug abuse patient.[facility] HospitalIn the event this information is protected by the Federal Confidentiality of Alcohol and Drug Abuse Patient Records regulations: The Federal rules restrict any use of the information to criminally investigate or prosecute any alcohol or drug abuse patient.[facility] HospitalIn the event this information is protected by the Federal Confidentiality of Alcohol and Drug Abuse Patient Records regulations: The Federal rules restrict any use of the information to criminally investigate or prosecute any alcohol or drug abuse patient.[facility] HospitalIn the event this information is protected by the Federal Confidentiality of Alcohol and Drug Abuse Patient Records regulations: The Federal rules restrict any use of the information to criminally investigate or prosecute any alcohol or drug abuse patient.[facility] HospitalIn the event this information is protected by the Federal Confidentiality of Alcohol and Drug Abuse Patient Records regulations: The Federal rules restrict any use of the information to criminally investigate or prosecute any alcohol or drug abuse patient.[facility] HospitalIn the event this information is protected by the Federal Confidentiality of Alcohol and Drug Abuse Patient Records regulations: The Federal rules restrict any use of the information to criminally investigate or prosecute any alcohol or drug abuse patient.[facility] HospitalIn the event this information is protected by the Federal Confidentiality of Alcohol and Drug Abuse Patient Records regulations: The Federal rules restrict any use of the information to criminally investigate or prosecute any alcohol or drug abuse patient.[facility] HospitalIn the event this information is protected by the Federal Confidentiality of Alcohol and Drug Abuse Patient Records regulations: The Federal rules restrict any use of the information to criminally investigate or prosecute any alcohol or drug abuse patient.[facility] HospitalIn the event this information is protected by the Federal Confidentiality of Alcohol and Drug Abuse Patient Records regulations: The Federal rules restrict any use of the information to criminally investigate or prosecute any alcohol or drug abuse patient.[facility] HospitalIn the event this information is protected by the Federal Confidentiality of Alcohol and Drug Abuse Patient Records regulations: The Federal rules restrict any use of the information to criminally investigate or prosecute any alcohol or drug abuse patient.[facility] HospitalIn the event this information is protected by the Federal Confidentiality of Alcohol and Drug Abuse Patient Records regulations: The Federal rules restrict any use of the information to criminally investigate or prosecute any alcohol or drug abuse patient.[facility] HospitalIn the event this information is protected by the Federal Confidentiality of Alcohol and Drug Abuse Patient Records regulations: The Federal rules restrict any use of the information to criminally investigate or prosecute any alcohol or drug abuse patient.[facility] HospitalIn the event this information is protected by the Federal Confidentiality of Alcohol and Drug Abuse Patient Records regulations: The Federal rules restrict any use of the information to criminally investigate or prosecute any alcohol or drug abuse patient.[facility] HospitalIn the event this information is protected by the Federal Confidentiality of Alcohol and Drug Abuse Patient Records regulations: The Federal rules restrict any use of the information to criminally investigate or prosecute any alcohol or drug abuse patient.[facility] Goals (unrecognized section and content) Goals may be documented in a n alternate sectionGoals may be documented in an alternate sectionGoals may be documented in an alternate sectionNo InformationNo InformationNo InformationNo Information No data available for this section No data available for this sectionGoals may be documented in an alternate sectionGoals may be documented in an alternate section No data available for this section No data available for this section No data available for this sectionNot on filedocumented as of this encounterNot on filedocumented as of this encounterNot on filedocumented as of this encounterNot on filedocumented as of this encounterNot on filedocumented as of this encounterNot on filedocumented as of this encounterNot on filedocumented as of this encounter FOR RECORDS PERTAINING TO PATIENTS WHO ARE OR HAVE BEEN ENROLLED IN A CHEMICAL DEPENDENCY/SUBSTANCEABUSE PROGRAM, SOME INFORMATION MAY BE OMITTED. This clinical summary was aggregated from multiple sources. Caution should be exercised in using it in the provision of clinical care. This summary normalizes information from multiple sources, and as a consequence, information in this document may materially change the coding, format and clinical context of patient data. In addition, data may be omitted in some cases. CLINICAL DECISIONS SHOULD BE BASED ON THE PRIMARY CLINICAL RECORDS. [facility]. provides no warranty or guarantee of the accuracy or completeness of information in this document.
== END 2024-12-31 18:52 | disposition home or self-care (01) ==
LOC: LAB 18:51
PROVIDERS: PCP Family Medicine; Visit Provider Obstetrics & Gynecology
DX: Z01.419 Encounter for gynecological examination (general) (routine) without abnormal findings (principal)
CPT/HCPCS: 87624; 88175

== ENCOUNTER 2025-01-29 08:49 | Day surgery (SDC) | payer OTHER, SELFPAY ==
--- OUTSIDE RECORDS SUMMARY | 2025-01-29 08:54 | XMS_ITS | Encounter Summary ---
Author Organization [facility] Address [address] [place] [address] Care Team Providers Care Chief Steward/Stewardess Name Role Phone Hector Bates MD Primary Care Provider [phone] Encounter Details DateTypeDepartmentCare Team (Latest Contact Info)Kkifmjdbkfe70/24/2025Orders Only [facility] [address] [place] [address] [place] [address] Laura Kelly MA Social History Tobacco UseTypesPacks/DayYears UsedDateSmoking Tobacco: NeverSmokeless Tobacco: NeverAlcohol UseStandard Drinks/WeekCommentsNever0 (1 standard drink = 0.6 oz pure alcohol)CommentsNoSex and Gender InformationValueDate RecordedSex Assigned at BirthNot on fileLegal UivTapkpz75/15/2023 11:22 PM EDTGender IdentityNot on fileSexual OrientationNot on filedocumented as of this encounter Plan of Treatment Not on file documented as of this encounter Procedures Procedure NamePriorityDate/TimeAssociated DiagnosisCommentsHPV/PAP COTEST, JZLLWWRIBuntzgs49/04/2025 12:00 AM ESTdocumented in this encounter Results * HPV/PAP COTEST, EXTERNAL (12/31/2024 12:00 AM EST) Narrative Authorizing ProviderResult TypeResult StatusCorey Michelet DOLAB CYTOLOGY ORDERABLESFinal ResultPerforming OrganizationAddressCity/State/ZIP CodePhone Number EXTERNAL LAB documented in this encounter Visit Diagnoses Not on filedocumented in this encounter Care Teams Team MemberRelationshipSpecialtyStart DateEnd Date Hector Bates MD [address] [place] [address] PCP - GeneralFamily Medicine08/02/22documented as of this encounter
--- OUTSIDE RECORDS SUMMARY | 2025-01-29 08:54 | XMS_ITS | Clinical Summary ---
Author Organization [facility] Address [address] [place] [address] Care Team Providers Care Websphere Commerce Developer Name Role Phone Lore Rodriguez MD Primary [...] Date RecordedSex Assigned at BirthNot on fileLegal AquVdrchn14/28/2020 1:47 PM EDTGender IdentityNot on fileSexual OrientationNot on file Last Filed Vital Signs Vital SignReadingTime TakenCommentsBlood Msazquyg040/8108 8:12 AM EDT Tygki3361 8:12 AM JRMPezaelmrlgj00.4 ??C (97.5 ??F)10/23/2020 8:12 AM EDTRespiratory Rate--Oxygen Saturation--Inhaled Oxygen Concentration--Zxpuzu78 kg (150 lb)10/23/2020 8:12 AM JOFZanhvm577.8 cm (5' 10 )10/23/2020 8:12 AM EDT Body Mass Index21.52010/23/2020 8:12 AM EDT Plan of Treatment Health MaintenanceDue DateLast DoneCommentsWellness Visit1997Depression Screening/Follow-Up (PHQ-2/9)2006Varicella Vaccines (1 of 2 - 13+ 2-dose series)06/08/2007HIV Rggghyhpe90/11/2010Hepatitis C Rmxdwovcj47/11/2013Pap Smear 06/08/2015HPV Vaccines (1 - 3-dose SCDM series)2Cervical Cancer Cfthxsjnv81/11/2025HPV/Xyeywu975COVID-19 Vaccine ( - 2024- season) 2024Influenza Vaccine (#1)Tetanus/Diphtheria/Pertussis (2 - Td or Tdap)Zoster Vaccines (1 of 2)2044RSV Vaccines (1 - 1-dose 75+ series)2069Hepatitis B VaccinesCompleted 09/06/1995, 1994, 1994MMR CxdgkzggEvshfljrw63/03/1999, 09/06/1995HIB VaccinesAged OutNo longer eligible based on [...] GardnerAccount TypeRelation to PatientDate of BirthPhone Billing AddressPersonal/HxpzqyQbzs54/11/1996 [phone] (Home) [address] [place] [address] Care Teams Team MemberRelationshipSpecialtyStart DateEnd Date Lore Rodriguez MD [address] [place] [address] PCP - GeneralFamily Medicine10/02/20
--- OUTSIDE RECORDS SUMMARY | 2025-01-29 08:54 | XMS_ITS | Clinical Summary ---
Author Organization [facility] Address [address] [place] [address] Phone Care Team Providers Care Child Care Provider Name Role Phone Lore Rodriguez MD Primary Care Provider Social History Tobacco UseTypesPacks/DayYears UsedDateSmoking Tobacco: Never Assessed CommentsUnknownSex and Gender InformationValueDate RecordedSex Assigned at Not on fileLegal TziLzpdga87/25/2022 8:28 PM ESTGender IdentityNot on fileSexual OrientationNot on file Last Filed Vital Signs Vital SignReadingTime TakenCommentsBlood Bsfxousz360/8105/05/2022 8:55 AM EST Evtxs51588/09/2023 8:55 AM LGHKgknogevzdt84 ??C (96.8 ??F)12/12/2019 2:58 PM EDT Respiratory Rate--Oxygen Saturation--Inhaled Oxygen Concentration--Jyyvlb65.8 kg (156 lb)05/05/2022 8:55 AM RDCZcqdjb917.3 cm (5' 11 )05/05/2022 8:55 AM ESTBody Mass Index21.76005/05/2022 8:55 AM EST Plan of Treatment Health MaintenanceDue DateLast DoneCommentsHIV Efcyuedrh11/11/1995Lipid Panel 1994MMR Vaccines (1 of 1 - Standard series)06/08/1995Hepatitis C Screening 2012Hepatitis B Vaccines (1 of 3 - 19+ 3-dose series)2013 Pneumococcal Vaccine: Pediatrics and At-Risk Adult Patients (1 of 2 - PCV) 2013HPV/Yzlxkk4706/08/2015DTaP/Tdap/Td Vaccines (1 - Tdap)2016HPV Vaccines (1 - 3-dose standard series)2021TSH Level/, 10/20/2022, 09/16/2022, Additional history existsInfluenza Vaccine (#1) 09/27/2024OVID-19 Vaccine (1 - 2024- season)2024ervical Cancer Exvgtntuo56/14/2025Pap Smear/, 11/24/2017, 08/22/2016Yearly Adult Imznhjbx90/05/2024Zoster Vaccines (1 of 2)2044HIB Vaccines Aged OutNo longer eligible based on patient's age [...] to complete this topic Procedures Procedure NamePriorityDate/TimeAssociated BjuzbwslkVqdupfgfSTTWabnewj59/16/2020 4:10 PM EDT CONVERTED COREMAKING MACHINE SETTER GKXCIXHWIcsbrqu77/28/2018 12:00 AM EDT from Last 3 Months or Most Recently Relevant to Health Maintenance Results * (ABNORMAL) Thyroid Stimulating Hormone (06/13/2019 4:10 PM EDT)ComponentValue Ref RangeTest MethodAnalysis TimePerformed AtPathologist SignatureTSH0.19(L) 0.44 - 3.98 mIU/LSJEWISH MATERNITY HOS[facility] LABComment: ?? Note new pediatric reference range as of 05/02/2019. TSH testing is performed using different testing methodology at [facility] than at other [facility]. Direct result comparisons should only be made within the same method. Specimen (Source)Anatomical Location / LateralityCollection Method / Volume Collection TimeReceived Time06/13/2019 4:10 PM EDT06/13/2019 4:15 PM EDT Narrative Authorizing ProviderResult TypeResult StatusMichael Rey Leroy MDLAB BLOOD ORDERABLESFinal ResultPerforming OrganizationAddressCity/State/ZIP CodePhone Number [facility] * CONVERTED COREMAKING MACHINE SETTER CYTOLOGY (11/24/2017 12:00 AM EDT)ComponentValueRef RangeTest MethodAnalysis TimePerformed AtPathologist SignaturePathology Report ? Date of Procedure: ??11/24/2017 ? Pathologist: Date Reported: 11/30/2017 Date Received: ??11/28/2017 Submitting Physician: ? Other Related Clinical Data SoftPath Conversion Details (10/07/2019) [facility] Accession #: ? [id number] SoftPath Accession #: ? [id number] SoftPath Billing #: ?[id number] Requesting Provider: ?DELMI JERRY Procedure Date: ? 11/24/2017 Ordered: ?11/28/2017 10:26 AM Signed Out: ? 11/30/2017 10:38 AM Case Pathologist: ? TOAN NOVAK M.D. Signout-Clerical: ? TOAN NOVAK M.D. Case Type: ?COREMAKING MACHINE SETTER Cytology Case Priority: ?Routine Diagnosis Type: ? Normal Status History: 11/28/2017 10:28 AM ??Processing Completion ?TWILA CHEATHAM 11/28/2017 10:28 AM ??Spec. Process. Entry ? TWILA CHEATHAM 11/28/2017 10:35 AM ??Slide Staining ? TWILA CHEATHAM 11/29/2017 09:50 AM ??Edit Final DGN Codes ? GIANNI WEST Tile Designer 11/29/2017 09:50 AM ??Final Dx Entered ? GIANNI WEST Tile Designer 11/30/2017 10:38 AM ??Edit Final Dx Codes (a) ?TOAN NOVAK M.D. 11/30/2017 10:38 AM ??Edit Final DGN Codes ? TOAN NOVAK M.D. 11/30/2017 10:38 AM ??Proreview Done (GNO) ? TOAN NOVAK M.D. 11/30/2017 10:38 AM ??Sign Out (GNO) ? TOAN NOVAK M.D. 11/30/2017 10:38 AM ??Sign Out from QA Entry (GNO) ? OTAN NOVAK M.D. 11/30/2017 10:53 AM ??Result sent [...] of bacterial vaginosis. Screened by GIANNI WEST Tile Designer on 11/29/2017 09:50 Signed by TOAN NOVAK M.D. on 11/30/2017 10:38 Reviewed by [...] SCREENING CERVICAL/ENDOCERVICAL THIN PREP VIAL Performed at [facility], [address] [place] [address] ??[id number] Source of Specimen A: SCREENING CERVICAL/ENDOCERVICAL THIN PREP VIAL [facility] Department of Pathology [address] [place] [id number] [facility] COPATHCONVERTED FINAL DIAGNOSISFINAL GYNECOLOGIC CYTOLOGY REPORT [id number] SPECIMEN ADEQUACY Satisfactory for Evaluation. ??Endocervical cells/transformation zone component present. GENERAL CATEGORIZATION Negative for Intraepithelial Lesion or Malignancy DESCRIPTIVE DIAGNOSIS Rare Parakeratosis is present. Shift in vaginal ramila suggestive of bacterial vaginosis. Screened by GIANNI WEST Tile Designer on 11/29/2017 09:50 Signed by TOAN NOVAK M.D. on 11/30/2017 10:38 [facility] COPATHCONVERTED CLINICAL DIAGNOSIS-HISTORYComment: No LMP provided. SPECIMEN (A) SCREENING CERVICAL/ENDOCERVICAL THIN PREP VIAL Performed at [facility], [address] [place] [address] ??[id number] [facility] COPATHCONVERTED DIAGNOSIS COMMENTReviewed by a pathologist due to previous abnormal history. Sample has been treated with glacial acetic acid for excessive blood, debris, inflammation and/or lubricant. [facility] COPATHCONVERTED OTHER RELATED CLINICAL DATASoftPath Conversion Details (10/07/2019) CoPath Accession #: ? [id number] SoftPath Accession #: ? [id number] SoftPath Billing #: ?[id number] Requesting Provider: ?DELMI JERRY Procedure Date: ? 11/24/2017 Ordered: ?11/28/2017 10:26 AM Signed Out: ? 11/30/2017 10:38 AM Case Pathologist: ? TOAN NOVAK M.D. Signout-Clerical: ? TOAN NOVAK M.D. Case Type: ?COREMAKING MACHINE SETTER Cytology Case Priority: ?Routine Diagnosis Type: ? Normal Status History: 11/28/2017 10:28 AM ??Processing Completion ?TWILA CHEATHAM 11/28/2017 10:28 AM ??Spec. Process. Entry ? TWILA CHEATHAM 11/28/2017 10:35 AM ??Slide Staining ? TWILA CHEATHAM 11/29/2017 09:50 AM ??Edit Final DGN Codes ? GIANNI WEST Tile Designer 11/29/2017 09:50 AM ??Final Dx Entered ? GIANNI WEST Tile Designer 11/30/2017 10:38 AM ??Edit Final Dx Codes [...] ?[facility] 11/30/2017 11:35 PM ??Final Rpt Printed ?[facility] 12/01/2017 07:13 PM ??Final Rpt Printed ?[facility] COPATHCONVERTED FINAL REPORT PDF LINK TO COPY AND PASTE \copathshare\copath\PDF \[id number].pdfEN[facility] COPATHSpecimen (Source) Anatomical Location / LateralityCollection Method / VolumeCollection Time Received TimeUnrecognized Part Type 10:26 AM EDT Narrative Authorizing ProviderResult TypeResult StatusCopath ConversionLAB CYTOLOGY ORDERABLESFinal ResultPerforming OrganizationAddressCity/State/ZIP CodePhone Number [facility] COPATH [address] [place] [address] from Last 3 Months or Most Recently Relevant to Health Maintenance Care Teams Team MemberRelationshipSpecialtyStart DateEnd Date Lore Rodriguez MD [facility] - Jlmjznq53/4/19
--- OUTSIDE RECORDS SUMMARY | 2025-01-29 08:54 | XMS_ITS | Clinical Summary ---
Author Organization [employer] [facility] Address [id number] [address] [place] [address] Care Team Providers Care Instrument Man Name Role Phone Ladan Aquino STEAM ROLLER OPERATOR-DRAPERY HEAD FORMER Primary Care Provide r Allergies Active AllergyReactionsCriticalityNoted DateComments Sulfamethoxazole-ZbvijoauoyeqGpgzmUtcasu95/10/2023 Other Reaction(s): Unknown Medications MedicationSigDispense QuantityRefillsLast FilledStart [...] bedtime.12/31/2024Discontinued Active Problems ProblemNoted DateDiagnosed DatePolycystic ovary rnkmonnq79/04/2025Hashimoto's pmgafakubnr27/05/2023 Encounters DateTypeDepartmentCare JcqpDpnmpnrdwrh93/18/2025Results [facility] [address] [place] [address] Ladan Aquino APRN-CNP CBC auto differential, Comprehensive metabolic panel, Lipid lpkfses5501/13/2025 Dcbxrd9812/31/2024 8:00 AM ESTOffice Visit [facility] [address] [place] [phone] Ladan Aquino APRN-CNP Wellness examination (Primary Dx); Polycystic ovary syndrome; Monica's mntbwnzirht29/04/3923Ckqerk18/20/2025Results Follow-Up [facility] [address] [place] [address] Hilary Briscoe MD TSH with Igsrji5812/11/2024Travelfrom Last 3 Months Family History Medical HistoryRelationNameCommentsHeart attackFatherHypothyroidismFather Pulmonary embolismFatherLymphomaMaternal GrandmotherNo Known ProblemsMotherLiver cancerPaternal GrandmotherRelationNameStatusCommentsFatherAliveMaternal GrandmotherAliveMotherAlivePaternal GrandmotherDeceased Social History Tobacco UseTypesPacks/DayYears UsedDateSmoking Tobacco: NeverPassive Smoke Exposure: NeverSmokeless Tobacco: Never Tobacco Cessation:Counseling Given: Not Answered Alcohol UseStandard Drinks/WeekCommentsNot Currently0 (1 standard drink = 0.6 oz pure alcohol)PHQ-2AnswerDate RecordedTotal Oxgsu884/04/2025ChildcareAnswerDate EvrcmxecPpaxptnyaBktrekh62/26/2020EmploymentAnswerDate RecordedEmploymentUnknown 04/24/2019Hunger ScreeningAnswerDate RecordedWithin the past 12 months we worried whether our food would run out before we got money to buy more.Never True03/20/2024Within the past 12 months the food we bought just didn't last and we didn't have money to get more.Never True03/20/2024Purpose - LifeAnswerDate RecordedPurpose and direction in zdmaCzwspjc31/11/2021CommentsNoSex and Gender InformationValueDate RecordedSex Assigned at BirthNot on fileLegal Sex Vqaqvo0204/24/2019 4:03 PM ESTGender IdentityNot on fileSexual OrientationNot on file Last Filed Vital Signs Vital SignReadingTime TakenCommentsBlood Ghbhfyaa274/6512/31/2024 8:05 AM EST Shugd182312/31/2024 8:05 AM BKNMlsumpkdtkx10.6 ??C (97.8 ??F)12/31/2024 8:05 AM ESTRespiratory Tuqt095303/28/2022 12:35 PM ESTOxygen Ygdpbfxwxm20%01/26/2023 12:35 PM ESTInhaled Oxygen Concentration--Tlulfi73.6 kg (173 lb 3.2 oz)12/31/2024 8:05 AM BTHNsbrkt804.8 cm (5' 10 )12/31/2024 8:05 AM ESTBody Mass Index24.85 12/31/2024 8:05 AM EST Plan of Treatment DateTypeDepartmentCare Team (Latest Contact Info)Pfeneutrtrf81/20/2026 2:30 PM ESTOffice Visit [facility] [address] [place] [phone] Hilary Briscoe MD [address] [place] [address] 01/01/2026 4:00 PM ESTOffice Visit [facility] [address] [place] [phone] Ladan Aquino, STEAM ROLLER OPERATOR-DRAPERY HEAD FORMER [address] [place], [place] [phone] Health MaintenanceDue DateLast DoneCommentsCOVID-19 Vaccine ( season) /, 01/19/2021Influenza Etqvzzf38/, 11/22/2019Pap Smear/Tobacco Wpvfzwfyc69/08/2024 Adult BMI Vabqojrgt49Depression Utedoaidq55/05/2024 DTaP,Tdap and Td Vaccines (8 - Td or Tdap)/, 10/07/2016, 09/18/2006, Additional history exists Medical Devices Not on file Procedures Procedure NamePriorityDate/TimeAssociated DiagnosisCommentsLIPID PROFILERoutine 01/14/2025 7:33 AM EST Wellness examination COMPREHENSIVE METABOLIC DJWOAHutvghw98/18/2025 7:33 AM EST Wellness examination CBC WITH AUTO IJKSZEITARIXHtekrdp36/18/2025 7:33 AM EST Wellness examination WMDCRKOGNFSPZpdliuw46/18/2025 7:33 AM EST Autoimmune thyroiditis TSH WITH VQXYJRGjwrfeb11/15/2025 4:45 PM EDT Autoimmune thyroiditis from Last 3 Months Results * CBC auto differential (01/14/2025 7:33 AM EST)ComponentValueRef RangeTest MethodAnalysis TimePerformed AtPathologist SignatureWBC7.04 - 11 X10^9/L 01/14/2025 1:11 PM [facility] LABORATORYRBC Count4.653.8 - 5.2 X10^12/L103/16/2024 1:11 PM [facility] Fytvbdrqaa39.811.7 - 15.5 g/dL01/14/2025 1:11 PM [facility] AOOVLZRXILApxvmbsnaj70.835 - 47 %01/14/2025 1:11 PM [facility] WTQFBZWQSFAFK1896 - 100 fL01/14/2025 1:11 PM [facility] RKCXVZKFDAGTZ35.627 - 34 pg01/14/2025 1:11 PM [facility] KPIESGQNHJYCVX61.832 - 36 g/dL01/14/2025 1:11 PM [facility] QJTYDYBOBOUYR64.511.5 - 15 %01/14/2025 1:11 PM [facility] LABORATORYPlatelet Zjmds289497 - 450 X10^9/L103/16/2024 1:11 PM [facility] LABORATORYMPV8.97 - 12 fL01/14/2025 1:11 PM [facility] LABORATORYNeutrophils %60.3%01/14/2025 1:11 [facility] LABORATORYLymphocytes %29.9%01/14/2025 1:11 PM [facility] LABORATORYMonocytes %8.3%01/14/2025 1:11 PM [facility] LABORATORYEosinophils %0.9%01/14/2025 1:11 PM [facility] LABORATORYBasophils %0.6%01/14/2025 1:11 PM [facility] LABORATORYNeutrophils Absolute (A)4.21.5 - 6.6 X10^9/L 01/14/2025 1:11 PM [facility] LABORATORYLymphocytes Absolute 2.11.0 - 3.5 X10^9/L103/16/2024 1:11 PM [facility] Monocytes Absolute0.60.0 - 0.9 X10^9/L103/16/2024 1:11 PM [facility] LABORATORYEosinophils Absolute0.10.0 - 0.4 X10^9/L103/16/2024 1:11 PM [facility] LABORATORYBasophils Absolute0.00.0 - 0.2 X10^9/L 01/14/2025 1:11 PM [facility] LABORATORYDifferential Type AUTOMATED DSSEPDWGJWBJ95/18/2025 1:11 PM [facility] LABORATORYSpecimen (Source)Anatomical Location / LateralityCollection Method / VolumeCollection TimeReceived TimeBloodVenous blood / UnknownVenipuncture / Hscohcs1001/14/2025 7:33 AM EST01/14/2025 7:33 AM EST Narrative Authorizing ProviderResult TypeResult StatusKendra Aquino STEAM ROLLER OPERATOR-CNPLAB BLOOD ORDERABLESFinal ResultPerforming OrganizationAddressCity/State/ZIP CodePhone Number [facility] [address] [place] [address], * Progesterone (01/14/2025 7:33 AM EST)ComponentValueRef RangeTest Method Analysis TimePerformed AtPathologist OfpqopwmmAVBXYWYZFEBU07.2ng/mL01/14/2025 1:53 PM [facility] LABORATORYComment: FEMALES: 1st Tri: ??4.7-50.7 ng/ml 2nd Tri: ??19.4-45.3 ng/ml ? MENSTRUATING FEMALES: Follicular: ??0.3-1.5 ng/ml Mid Luteal: ??5.2-18.6 ng/ml Post Middle [place]: <0.1-0.8 ng/ml Specimen (Source)Anatomical Location / LateralityCollection Method / Volume Collection TimeReceived TimeBloodVenipuncture / Anewofe4501/14/2025 7:33 AM EST 01/14/2025 7:33 AM EST Narrative Authorizing ProviderResult TypeResult StatusCorey Berta Tafoya DOLAB BLOOD ORDERABLES Final ResultPerforming OrganizationAddressty/State/ZIP CodePhone Number [facility] [address] [place] [address], * Lipid profile (01/14/2025 7:33 AM EST)ComponentValueRef RangeTest Method Analysis TimePerformed AtPathologist OsmlzchupICPRYWGKNQQ246160 - 200 mg/dL 01/14/2025 1:52 PM [facility] QFOIUHTBITVHOIZRKFOMVG26577 - 150 mg/dL01/14/2025 1:52 PM [facility] LABORATORYHDL TIMGYNAEMTG46>39 mg/dL01/14/2025 1:52 PM [facility] LABORATORYComment: HDL <40 mg/dL - High Risk HDL > or = 40mg/dL- Desirable HDL >60 mg/dL - Negative Risk LDL (CALC)87<130 mg/dL01/14/2025 1:52 PM [facility] Comment: LDL <100 mg/dL - Desirable LDL >160 mg/dL - High Risk CHOLESTEROL:HDL3.61.0 - 5. 1:52 PM [facility] LABORATORYVERY LOW KBNIRYCWLUP801 - 30 mg/dL01/14/2025 1:52 PM [facility] LABORATORYSpecimen (Source)Anatomical Location / Laterality Collection Method / VolumeCollection TimeReceived TimeBloodVenous blood / UnknownVenipuncture / Okjaevr2501/14/2025 7:33 AM EST01/14/2025 7:33 AM EST Narrative Authorizing ProviderResult TypeResult StatusKendra Miles STEAM ROLLER OPERATOR-CNPLAB BLOOD ORDERABLESFinal ResultPerforming OrganizationAddressCity/State/ZIP CodePhone Number [facility] [address] [place] [phone], * Comprehensive metabolic panel (01/14/2025 7:33 AM EST)ComponentValueRef Range Test MethodAnalysis TimePerformed AtPathologist TtwxrwltuOVLZIB466288 - 146 mmol/L103/16/2024 1:52 PM [facility] LABORATORYPOTASSIUM4.03.5 - 5.0 mmol/L103/16/2024 1:52 PM [facility] LABORATORYCHLORIDE [address] - 109 mmol/L103/16/2024 1:52 PM [facility] CARBON MBNASPH5211 - 32 mmol/L103/16/2024 1:52 PM [facility] LABORATORYANION GAP55 - 15 mmol/L103/16/2024 1:52 PM [facility] LABORATORYBLOOD UREA QQBEUECH778 - 23 mg/dL01/14/2025 1:52 PM [facility] LABORATORYCREATININE0.780.40 - 1.00 mg/dL01/14/2025 1:52 PM [facility] LABORATORYComment:METHOD TRACEABLE TO IDOR ETEQOBVFVXOUXBG1023 - 99 mg/dL01/14/2025 1:52 PM [facility] LABORATORYCALCIUM9.38.5 - 10.5 mg/dL01/14/2025 1:52 PM [facility] LABORATORYTOTAL PROTEIN7.96.0 - 8.0 g/dL01/14/2025 1:52 PM [facility] LABORATORYALBUMIN4.43.2 - 5.3 g/dL01/14/2025 1:52 PM [facility] LABORATORYALKALINE BAFONAGFXEX4292 - 130 U/L 01/14/2025 1:52 PM [facility] ZSSCOFKWKWUVN17<=41 U/L 01/14/2025 1:52 PM [facility] BSKPZTXIRZUSY84<=31 U/L 01/14/2025 1:52 PM [facility] LABORATORYBILIRUBIN,TOTAL0.60.3 - 1.2 mg/dL01/14/2025 1:52 PM [facility] LABOR[facility]ORYEGFR Non- Race Dependent>90>=60 ml/min/1.73sq.m103/16/2024 1:52 PM [facility] LABORATORYComment: Reported eGFR is based on the CKD-EPI 2020 equation that does not use a race coefficient. Specimen (Source)Anatomical Location / LateralityCollection Method / Volume Collection TimeReceived TimeBloodVenous blood / UnknownVenipuncture / Unknown 01/14/2025 7:33 AM EST01/14/2025 7:33 AM EST Narrative Authorizing ProviderResult TypeResult StatusKendra Schchris STEAM ROLLER OPERATOR-CNPLAB BLOOD ORDERABLESFinal ResultPerforming OrganizationAddressCity/State/ZIP CodePhone Number [facility] [address] [place] [address], * TSH with Reflex (12/11/2024 4:45 PM EDT)ComponentValueRef RangeTest Method Analysis TimePerformed AtPathologist SignatureTSH1.810.49 - 4.67 uIU/mL 12/11/2024 10:48 PM [facility] LAB[facility]ATORYSpecimen (Source) Anatomical Location / LateralityCollection Method / VolumeCollection Time Received TimeBloodVenous blood / UnknownVenipuncture / Fiwopeu9312/11/2024 4:45 PM EDT1 4:45 PM EDT Narrative Authorizing ProviderResult TypeResult StatusHilary Briscoe MDLAB BLOOD ORDERABLESFinal ResultPerforming OrganizationAddressCity/State/ZIP CodePhone Number [facility] [address] [place] [address], from Last 3 Months Insurance * Guarantor: Makenna GardnerAccount TypeRelation to PatientDate of PhoneBilling AddressPersonal/JsecafKjdc26/11/1996 [address] [place] [address] Care Teams Team MemberRelationshipSpecialtyStart DateEnd Date Ladan Aquino, FIORELLA-DRAPERY HEAD FORMER [address] [place], [place] [phone] PCP - GeneralFamily Medicine10/02/24
--- OUTSIDE RECORDS SUMMARY | 2025-01-29 08:54 | XMS_ITS | Encounter Summary ---
Author Organization [facility] Address [address] [place] [address] Care Team Providers Care Security Public Safety Officer Name Role Phone Hector Bates MD Primary Care Provider [phone] Encounter Details DateTypeDepartmentCare Team (Latest Contact Info)Laixtmhtwgq87/01/2025Telephone [facility] [address] [place] [address] [place] [address] Wendi Lazaro LPN Social History Tobacco UseTypesPacks/DayYears UsedDateSmoking Tobacco: NeverSmokeless Tobacco: NeverAlcohol UseStandard Drinks/WeekCommentsNever0 (1 standard drink = 0.6 oz pure alcohol)CommentsNoSex and Gender InformationValueDate RecordedSex Assigned at BirthNot on fileLegal EguTfyirk72/15/2023 11:22 PM EDTGender IdentityNot on fileSexual OrientationNot on filedocumented as of this encounter Miscellaneous Notes * Addendum Note - Wendi Lazaro LPN - 01/27/2025 12:14 PM ESTAddended by: WENDI LAZARO on: 01/27/2025 12:14 PM Modules accepted: Orders * Telephone Encounter - Wendi Lazaro LPN - 01/27/2025 12:01 PM EST Wendi, Thank you so much! I hope you had a wonderful Thanksgiving with family. Few updates since I can???tcall until this afternoon due to my patient schedule: 1.) started my cycle Monday01/24/25 2.) Started Clomid Monday01/26/25 3.) I have progesterone noted as due 02/13/25- is this correct? 4.) we discussed having doc check my tubes. With the holiday, I wasn???t sure if that was possible for this cycle and if so, how to get scheduled. 5.) [facility] noted [facility] XR script was deactivated. Could you resend for 2 tabs daily to [facility], please? Thanks again for all your help. I truly appreciate everything you and Dr. Tafoya (and Jalyn) do for me! Makenna Per Grapeword message above Metformin sent to pharmacy and HSG will be sent to [facility] Radiology to be scheduled. Will respond to patient via Grapeword message. Wendi Curtis LPN documented in this encounter Plan of Treatment NameTypePriorityAssociated DiagnosesOrder SchedulehCG, quantitative, LabRoutine Fallopian tube disorder Expected: 01/27/2025 (Approximate), Expires: 01/27/2026XR hysterosalpingogram ImagingRoutine Fallopian tube disorder Expected: 01/27/2025 (Approximate), Expires: 01/27/2026documented as of this encounter Visit Diagnoses Diagnosis Fallopian tube disorder Unspecified noninflammatory disorder of ovary, fallopian tube, and broad ligament Monica's thyroiditis Chronic lymphocytic thyroiditis History of miscarriage Personal history of other genital system and obstetric disorders documented in this encounter Care Teams Team MemberRelationshipSpecialtyStart DateEnd Date Hector Bates MD [address] [place] [address] PCP - GeneralFamily Medicine08/02/22documented as of this encounter
--- OUTSIDE RECORDS SUMMARY | 2025-01-29 08:54 | XMS_ITS | Clinical Summary ---
Author Organization [facility] Address [address] [place], [place] [address] Care Team Providers Care Asset Protection Associate Name Role Phone Hector Bates MD Primary Care Provider [phone] Allergies Active AllergyReactionsCriticalityNoted DateCommentsSulfa (Sulfonamide Antibiotics)Hives08/20/2015 Medications [...] thyroiditis Resolved Problems ProblemNoted DateDiagnosed DateResolved DateGoiter, scrrxzr2205/20/2021 Overview (08/19/2015): 2000: Around this time, age ~5 (first grade) was found to have hypothyroidism. Per patient, pediatricia felt lump in neck . 2000: Ultrasound of thyroid, at outside hospital: I dont have this to review. 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 Started on a dose of levothyroxine. 0719-8188: Followed by pediatric endocrinology. Multiple ultrasound studies. [...] ng/dL), on levothyroxine 150 mcg daily. Monica's fomzphd2105/20/2021 Overview (08/20/2015): dignosed at age 4 Evmegwuzvjrvmf06/24/2022 Family History Medical HistoryRelationCommentsAsthmaMaternal GrandfatherThyroidMaternal GrandfatherUnclear thyroid [...] number is lower riskNot on file02/04/2020Data from: https://www.neighborhoodatlas.medicine.[facility].edu/. Last address used for calculationNot on file02/04/2020CommentsNoSex and Gender Information ValueDate RecordedSex Assigned at CajsaQrxtxs97/09/2021 9:05 PM EDTLegal Sex Hqcfvo7401/29/2012 9:51 AM ESTGender EavffpbkIvydtr20/09/2021 9:05 PM EDTSexual MbklqaeqavlSdeuvcou00/09/2021 9:05 PM EDTOccupationIndustryJob Start DateJob End DatePharmacy student -graduated 2019Not on fileNot on fileNot on filePost grad work - DoneNot on fileNot on fileNot on filePharmDNot on fileNot on fileNot on file Last Filed Vital Signs Vital SignReadingTime TakenCommentsBlood Ulvdlzqi019/7704 9:00 AM EDT Uepdn0634 9:00 AM OAHIwtjolpxpjr56.8 ??C (98.2 ??F)04/29/2016 10:27 AM ESTRespiratory Bfdg046705/13/2016 2:39 PM EDTOxygen Tjxymcsvdb880%06/03/2020 9:05 AM EDTInhaled Oxygen Concentration--Yzcwos99 kg (172 lb)06/12/2023 9:00 AM EDT Tkgtlb248.8 cm (5' 10 )06/12/2023 9:00 AM EDTBody Mass Index24.68006/12/2023 9:00 AM EDT Plan of Treatment Health MaintenanceDue DateLast DoneCommentsAnnual PCP Team Chronic Disease Visit 2012nxiety Oqavugndd81/11/2013Depression Btcsjcwft32/11/2013HIV Screening 2012Hepatitis C Nzhximzjw89/11/2013Cervical Cancer Frreepopo04/11/2016HPV Vaccine (1 - 3-dose SCDM series)2Covid-19 Vaccine (3 - season) /, 01/19/2021Influenza Vaccine (#1)/ DTaP,Tdap,Td Vaccine (8 - Td or Tdap)/, 10/07/2016, 09/18/2006, Additional history existsHepatitis B ZfogribGiluhplsb97/10/1996, 1994, 1994 Medical Devices ImplantedTypeAreaManufacturerDevice IdentifierShelf Expiration DateModel / Serial / LotStent Inlay Wye 7fr Taper Chul[place]ick Green Phreecoat Polymer 28cm Ureteral - [id number] Implanted:Qty: 1 on 04/28/2016 at [facility] StentsRight: Ureter [employer] [id number] / / [id number] Insurance * Guarantor: Makenna Gardner TypeRelation to PatientDate of BirthPhone Billing AddressPersonal/OgyfxpQegh40/11/1996 [place] [address] Care Teams Team MemberRelationshipSpecialtyStart DateEnd Date Hector Bates MD [facility]
--- OUTSIDE RECORDS SUMMARY | 2025-01-29 08:54 | XMS_ITS | Clinical Summary ---
Author Organization [facility] Address [address], [address] [place] [address] Care Team Providers Care Scaffold Setter Name Role Phone Unavailable Primary Care Provider [...] by mouth dailyActive Active Problems ProblemNoted DateDiagnosed DpbvXrwjyqcfjmjfgoy32/04/2023 Overview (11/30/2022): [facility] 11/30/22: SANDRA 2.99 cm, absent 2x2 pocket Social History Tobacco UseTypesPacks/DayYears UsedDateSmoking Tobacco: NeverSmokeless Tobacco: Never Tobacco Cessation:Counseling Given: Not Answered CommentsNoSex and Gender InformationValueDate RecordedSex Assigned at BirthNot on fileLegal ApwEhzjub77/19/2021 4:00 PM EDTGender IdentityNot on file Sexual OrientationNot on file Last Filed Vital Signs Vital SignReadingTime TakenCommentsBlood Uzjbtpvr381/8410 7:00 AM EDT Vaqab50792/11/2023 7:00 AM GGACedtduprmim09.7 ??C (98 ??F)12/07/2022 7:00 AM EDT Respiratory Gvzz4453 7:00 AM EDTOxygen Saturation--Inhaled Oxygen Concentration--Ynuexo04.6 kg (188 lb 11.4 oz)12/07/2022 7:00 AM NAXQybnit023.8 cm (5' 10 )12/07/2022 7:00 AM EDTBody Mass Index27.0812/07/2022 7:00 AM EDT Plan of Treatment Not on file Insurance * Guarantor: Makenna GardnerAccount TypeRelation to PatientDate of BirthPhone Billing AddressPersonal/MizroqSnrq57/11/1996 [place] [address]
--- OUTSIDE RECORDS SUMMARY | 2025-01-29 08:54 | XMS_ITS | Clinical Summary ---
Author Organization [facility] Address [address] [place] [address] Care Team Providers Care Guard Manager Name Role Phone Hector Bates MD Primary Care Provider [phone] Allergies Active AllergyReactionsCriticalityNoted DateCommentsSulfa Hfyvvuccwhb01/06/2023 Sulfamethoxazole-Cgkhjgbrmxlq30/10/2023 Other Reaction(s): Unknown Medications MedicationSigDispense QuantityRefillsLast FilledStart DateEnd DateStatus levothyroxine (Synthroid, Levoxyl) 175 MCG tablet Take 175 mcg by mouth in the morning. Take before meals.Active aspirin 81 MG EC tablet Take 81 mg by mouth DailyActive folic acid-vit B6-vit B12 (Folbee) 2.5-25-1 MG tablet tablet Take 1 tablet by mouth in the morning.Active Multiple Vitamin (multivitamin) tablet Take 1 tablet by mouth DailyActive metFORMIN XR (Glucophage-XR) 500 MG 24 hr tablet Indications:Monica's thyroiditisTake 2 tablets (1,000 mg) by mouth in the evening. Take with meals Do not crush, chew, or split. 180 tablet ctive MV-Min-Fe Fum-FA-DHA ( 1 PO) Take by [...] not crush, chew, or split. 90 tablet Discontinued(Reorder) metFORMIN XR (Glucophage-XR) 500 MG 24 hr tablet Indications:Monica's thyroiditis,Infertility counselingTake 2 tablets (1,000 mg) by mouth in the evening. 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,Amenorrhea,Endometriosis,HyperthyroidismTake 2 tablets (100 mg) by mouth Daily for 5 days 10 tablet Expired Active Problems ProblemNoted DateDiagnosed LtfcLrhcnllcnotpe19/27/2243Jxmbpphdspdadaz33/27/2025 History of puijbcwvbnt38/27/0460Kxrusozsav22/26/20246 weeks follow-up ([facility])01/17/2023Oligohydramnios ([facility])11/30/2022 Overview (12/09/2022): [facility] 11/30/22: SANDRA 2.99 cm, absent 2x2 pocket Monica's wdzjumvtesk05/05/2023Hypothyroidism due to Monica's thyroiditis 08/31/2022Missed nazvuz4608/01/2022Encounter for anatomic survey ([facility]) 08/01/2022Hyperemesis gravidarum ([facility])04/27/2022Ureteropelvic junction (UPJ) jxwxnekimur42/02/2017Right flank pain09/26/2014 Resolved Problems ProblemNoted DateDiagnosed DateResolved DateNausea/vomiting in ([facility]) Encounters DateTypeDepartmentCare OzgtZcvjikwuski74/01/2025Telephone [facility] [address] [place] [address] Wendi Gandhi LPN 01/22/2025Telephone [facility] [address] [place] [address] Wendi Gandhi LPN 01/20/2025Orders Only [facility] [address] [place] [address] Laura Kelly MA 12/31/2024 10:30 AM ESTOffice Visit [facility] PLASECNCIA [address] [place] [address] Gigi Tafoya, DO Well woman exam with routine gynecological exam; Monica's thyroiditis; History of sbwwjuyvdmb15/04/2025linisync Result Encounter [facility] External Department Unsolicited Gigi Tafoya, 12/31/2024amboo flowsheet [facility] PLASCENCIA [address] [place] [address] Gigi Tafoya, DO 12/27/2024Telephone [facility] OBGYAnnalise [address] [place] [phone] Wendi Gandhi, PARVIZ 12/16/2024 3:10 PM EDTOffice Visit [facility] OBJUDD [address] [place] [address] Gigi Tafoya DO Monica's thyroiditis; Infertility counseling; History of dzhaskawotz59/20/2025bstract [facility] [address] [place] [address] Gigi Tafoya DO 12/16/2024Telephone [facility] [address] [place] [address] Wendi Gandhi LPN 12/16/2024amboo flowsheet [facility] OBBRIANNAN [address] [place] [address] Gigi Tafoya DO from Last 3 Months Family History Medical HistoryRelationNameCommentsAsthmaBrotherHeart attackFatherNSTEMI Pulmonary embolismFatherfrom COVIDAsthmaSisterRelationNameStatusCommentsBrother AliveFatherAliveMotherAliveSisterAlive Social History Tobacco UseTypesPacks/DayYears UsedDateSmoking Tobacco: NeverSmokeless Tobacco: Never Tobacco Cessation:Counseling Given: Not Answered Alcohol UseStandard Drinks/WeekCommentsNever0 (1 standard drink = 0.6 oz pure alcohol)CommentsNoSex and Gender InformationValueDate RecordedSex Assigned at BirthNot on fileLegal AwwDmbdgw98/15/2023 11:22 PM EDTGender IdentityNot on fileSexual OrientationNot on file Last Filed Vital Signs Vital SignReadingTime TakenCommentsBlood Tqavnepa090/7012/31/2024 10:36 AM EST Pulse--Temperature--Respiratory Rate--Oxygen Saturation--Inhaled Oxygen Concentration--Fyovut24.4 kg (172 lb 12.8 oz)12/31/2024 10:36 AM ZKWFtiyto239.8 cm (5' 10 )12/16/2024 3:20 PM EDTBody Mass Index24.7912/16/2024 3:20 PM EDT Plan of Treatment Health MaintenanceDue DateLast DoneCommentsHPV/Ckjksk05/5COVID-19 Vaccine ( season), 01/19/2021Influenza Vaccine (#1) /, 11/22/2019Cervical Cancer Gaxrfrbgh54/14/2025Pap Smear , 11/24/2017Pneumococcal Vaccine: Pediatrics (0 to 5 Years) and At-Risk Patients (6 to 64 Years)Aged OutNo longer eligible based on patient's age to complete this topic Procedures Procedure NamePriorityDate/TimeAssociated DiagnosisCommentsPROGESTERONERoutine 01/14/2025 7:33 AM EST IGP,APTIMA HPV,AGE PAPYDoyqnzz47/04/2025 10:26 AM EST HPV/PAP COTEST, TUVMKAPCFqvjetw22/04/2025 12:00 AM ESTPAP IAZLLDkxeqzz72/14/2022 12:00 AM ESTfrom Last 3 Months or Most Recently Relevant to Health Maintenance Results * Progesterone (01/14/2025 7:33 AM EST)ComponentValueRef RangeTest Method Analysis TimePerformed AtPathologist GpnrqrzbeBNDVXLWHQCME29.2ng/mLPROMED[place] Comment: FEMALES: 1st Tri: ??4.7-50.7 ng/ml 2nd Tri: ??19.4-45.3 ng/ml MENSTRUATING FEMALES: Follicular: ??0.3-1.5 ng/ml Mid Luteal: ??5.2-18.6 ng/ml Post Fatou: <0.1-0.8 ng/ml ?? PERFORMED AT [facility] [address],[place] [address] Specimen (Source)Anatomical Location / LateralityCollection Method / Volume Collection TimeReceived Time01/14/2025 7:33 AM EST01/14/2025 12:50 PM EST Narrative Authorizing ProviderResult TypeResult StatusCorey Micheletrambo SALAZAR BLOOD ORDERABLES Final ResultPerforming OrganizationAddressCity/State/ZIP CodePhone Number [place] * IGP,APTIMA HPV,AGE GDLN (12/31/2024 10:26 AM EST)ComponentValueRef RangeTest MethodAnalysis TimePerformed AtPathologist SignatureAGE GDLN ACOG TESTINGNote. TBHComment: ?? TESTS ? RESULT ??FLAG ??UNITS ?REF RANGE ??LAB ?? Clinician Provided Cytology Information ?? Source.............Cervix;Endocervix ?? No. of containers..01 ThinPrep Vial Age Algo ACOG Esthela... ??30-65 ? 01 ?FLAG LEGEND: ?L-Low Normal,H-High Normal,LL-Alert Low,HH-Alert High <-Panic Low,>-Panic High,A-Abnormal,AA-Critical Abnormal Performed at: 01 =G ?[facility] ?? [address] [place] ??[phone] ?? Latha Henry MD, IGP, APTIMA HPV, RFX 16/18,45Note.TBHComment: ?? TESTS ? RESULT ??FLAG ??UNITS ?REF RANGE ??LAB DIAGNOSIS: ?02 ?? NEGATIVE FOR INTRAEPITHELIAL LESION OR MALIGNANCY. ?? REACTIVE CELLULAR CHANGES AND/OR REPAIR ARE PRESENT. Specimen adequacy: ?02 ?? Satisfactory for evaluation. ??Endocervical and/or squamous metaplastic ?? cells (endocervical component) are present. Performed by: ? 02 ?? Yvonne Akers Tile Layer Supervisor (ASCP) Electronically si... ?02 ?? Leola Sullivan MD, Pathologist . ? 02 Note: ? Note ?02 ?? The Pap smear is a screening test designed to aid in the ?? detection of premalignant and malignant conditions of the ?? uterine cervix. ??It is not a diagnostic procedure and ?? should not be used as the sole means of detecting cervical ?? cancer. ??Both false-positive and false-negative reports do ?? occur. Test Methodology: ? Note ?02 ?? This liquid based ThinPrep(R) pap test was interpreted ?? using the MiracleCord(R) Pazien(TM) Cervical Algorithm whole ?? slide imaging system. HPV Genotype Reflex ?? Note ?02 ?? Criteria not met, HPV Genotype not performed. ?FLAG LEGEND: ?L-Low Normal,H-High Normal,LL-Alert Low,HH-Alert High <-Panic Low,>-Panic High,A-Abnormal,AA-Critical Abnormal Performed at: 02 WB ?[facility] ?? [address] [place], [place] ??[phone] ?? Latha Henry MD, HPV APTIMANegativeNegativeTBHComment: This nucleic acid amplification test detects fourteen high- risk HPV types (16,18,31,33,35,39,45,51,52,56,58,59,66,68) without differentiation. Performed at: ??=G - [facility] [address] [place], [place] ??[id number] Survey Party Chief: Latha Henry MD, Phone: ??[phone] Performed at: ?? - [facility] [address] [facility] [place], [place] ??[phone] Survey Party Chief: Latha Henry MD, Phone: ??[phone] Specimen (Source)Anatomical Location / LateralityCollection Method / Volume Collection TimeReceived Time12/31/2024 10:26 AM EST12/31/2024 9:37 PM EST Narrative [facility] - 01/06/2025 4:09 PM EST BRUSH-SPATULA CERVIX ENDOCERVIX Authorizing ProviderResult TypeResult StatusCorey Michelet DOLAB BLOOD ORDERABLES Final ResultPerforming OrganizationAddressCity/State/ZIP CodePhone Number [facility] * HPV/PAP COTEST, EXTERNAL (12/31/2024 12:00 AM EST) Narrative Authorizing ProviderResult TypeResult StatusCorey Michelet DOLAB CYTOLOGY ORDERABLESFinal ResultPerforming OrganizationAddressCity/State/ZIP CodePhone Number EXTERNAL LAB * Pap Smear (01/10/2022 12:00 AM EST)Specimen (Source)Anatomical Location / LateralityCollection Method / VolumeCollection TimeReceived TimeSwabCervical swab / Unknown Narrative Authorizing ProviderResult TypeResult StatusHistorical Provider MDLAB CYTOLOGY ORDERABLESFinal ResultPerforming OrganizationAddressCity/State/ZIP CodePhone Number EXTERNAL LAB from Last 3 Months or Most Recently Relevant to Health Maintenance Insurance * Guarantor: Makenna Gardner TypeRelation to PatientDate of BirthPhone Billing AddressPersonal/PltdchVggr20/11/1996 [address] [place] [address] * Guarantor: Makenna Gardner TypeRelation to PatientDate of BirthPhone Billing AddressPersonal/QltrzsFcoj16/11/1996 [address] [place] [address] Care Teams Team MemberRelationshipSpecialtyStart DateEnd Date Hector Bates MD [address] [place] [address] PCP - GeneralFami Medicine08/02/22
--- OUTSIDE RECORDS SUMMARY | 2025-01-29 08:54 | XMS_ITS | Encounter Summary ---
Author Organization [facility] Address [address] [place] [address] Care Team Providers Care Market News Reporter Name Role Phone Hector Bates MD Primary Care Provider [phone] Encounter Details DateTypeDepartmentCare Team (Latest Contact Info)Tnzzlkzazzw86/26/2025Telephone [facility] [address] [place] [address] [place] [address] Wendi Gandhi LPN Social History Tobacco UseTypesPacks/DayYears UsedDateSmoking Tobacco: NeverSmokeless Tobacco: NeverAlcohol UseStandard Drinks/WeekCommentsNever0 (1 standard drink = 0.6 oz pure alcohol)CommentsNoSex and Gender InformationValueDate RecordedSex Assigned at BirthNot on fileLegal GrmDabanl69/15/2023 11:22 PM EDTGender IdentityNot on fileSexual OrientationNot on filedocumented as of this encounter Miscellaneous Notes * Telephone Encounter - Wendi Gandhi LPN - 01/22/2025 8:18 AM EST 01/20/25 @1:49pm Patient called and voiced that she has not yet started her cycle, but Clomid seemed to work well with her progesterone levels last month. Patient would like to know that with the holiday coming up if Clomid could be sent in to [facility] in [place]. 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 See Pictour.ust message for notification. 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
--- OUTSIDE RECORDS SUMMARY | 2025-01-29 08:57 | XMS_ITS | CCD ---
Author Organization [facility] Care Team Providers Care Embedded Software Engineer Name Role Phone BETZAIDA MCHUGH Attending Unavail [...] Care Provider MD Chen Lucia Attending Provider [phone] CHELSEA Jensen Attending Provider Gigi Tafoya Attending Provider [phone] Michelet, Gigi Admitting Unavailable Ross, Chen E [...] Unavailable ZIEBER, DR TRI Hampton Consulting Unavailable [place], CHEN ELIAS Primary Care Unavailable HAY ., DR TRIMBLE Attending Unavailable HAY ., DR TRIMBLE Admitting Unavailable GRECHNY ., DANYA PEDROZA Consulting Unavailabl e [place], [facility] Primary Care Unavailable MARKER ., DR ROCK Consulting Unavailable PAY ., DR NIXON Attending Unavailable PAY ., DR NIXON Admitting Unavailable ROSS, CHEN ELIAS Primary Care Unavailable REINECK, DR KENYATTA Lucio Consulting Unavailabl e REINECK, DR KENYATTA Lucio Attending Unavailabl e REINECK, DR KENYATTA Lucio Admitting Unavailabl e GRECHNY ., DANYA PEDROZA Consulting Unavailabl e MICHELET ., DR [...] Unavailable MICHELET ., DR JIMENEZ Admitting Unavailable RURAL [place], CHEN ELIAS Primary Care Unavailable MICHELET ., DR JIMENEZ Consulting Unavailable MICHELET ., DR JIMENEZ Attending Unavailable JOSE LEROY Referring Unavail able Chen Lucia MD Primary Care Provider [phone] Ms. Damari Sullivan Attending Unavaila derik Gardiner, Dr. Lore Kim Primary Care Un available JOSE LEROY Attending Unavail able JOSE LEROY Referring Unavail able CHEN LUCIA Primary Care Unavailable TERENCEOCCJOSE Esqueda Attending Unavail able CHEN LUCIA Primary Care Unavailable Chen Lucia MD Primary Care Provider Chen Lucia Primary Care Physician [phone] Chen Lucia Attending Unavailable Chen Lucia Attending Unavailable Chen Lucia Attending Unavailable Chen Lucia Admitting Unavailable Chen Lucia Attending Unavailable Chen Lucia MD Primary Care Provider Chen Lucia MD Primary Care Provider Chen Lucia MD Primary Care Provider MICHELET, GIGI R Referring Unavailable ROSS, CHEN [...] Referring Unavailable SCHLACHTER, DARIELA Primary Care Unavailable HILARY BRISCOE Referring Unavailable SCHLACHTER, DARIELA Primary Care Unavailable Schlachter FILM AND VIDEO GRAPHICS DESIGNER-SUPERVISOR PRE WAVE, Dariela Primary Care Provide r HILARY BRISCOE Attending Unavailable MICHELET, GIGI R Referring Unavailable REA, CHEN E Primary Care Unavailable SCHLAGEEER, DARIELA Attending Unavailable REA, HCEN E Referring Unavailable SCHLACHTER, DARIELA Primary Care Unavailable MICHELET, GIGI Attending Unavailable MICHELET, GIGI Attending Unavailable Allergies Allergy ClassificationReported Allergen(s)Allergy TypeDate of OnsetReaction(s) FacilitySulfonamides (antibiotic) (1 source)Sulfonamides (Antibiotic)Drug Hpzxahr54-35-7959SamdaFxqmRhqxos (2 sources)Misc. Sulfa Containing Compounds; Translations: [Misc. Sulfa Containing Compounds]Allergy to drug (finding)[facility] Work Phone: (20 sources)Sulfonamides (Antibiotic); Translations: [SULFA (SULFONAMIDE ANTIBIOTICS)]Propensity to adverse reactions to ovut23-04-9589KovqlIdrhOsqnuc (3 sources)Sulfacetamide / SulfurDrug Allergymimbres [facility]/hivesNorth Care Thread Other (1 source)sulfaSALAzineDrug AllergyRASPike [facility] Hospital Care Thread Other (20 sources)Sulfamethoxazole / Trimethoprim; Translations: [sulfamethoxazole-trimethoprim]Drug Iamptde35-98-2983Zfan (disorder), [facility] (1 source)Sulfonamides (Antibiotic)Drug allergy (disorder)37-09-0315VtsxlzekuSt. [facility] (1 source)Sulfonamides (Antibiotic)Drug allergy (disorder)06-44-1987EmbTri[facility] (2 sources)Sulfamethoxazole / Trimethoprim; Translations: [SULFAMETHOXAZOLE-TRIMETHOPRIM]Drug Zkfhbrc77-41-7554MdrRzltqx Repository Medications Current Medications MedicationDrug Class(es)DatesSig (Normalized)Sig (Original)albuterol 0.83 mg/ml inhalation solution (20 sources)beta2-Adrenergic AgonistStart: 67-78-3590onsh 2.5 mg by inhalation every four hours [...] shortness of breath or wheezing. 02/15/2022 ActiveStart: 71-78-5037Pfovlkihf (Eqv-ProAir HFA) Wheezing, Refill(s) 0 Start Date: 09/22/21 Status: OrderedStart: 57-04-0878Nfbztkvea Sulfate (2.5 MG/3ML) 0.083% 3 ml as needed Inhalation every 6 hrs for 7 days Mar, ActiveStart: 31-74-8070wnjl 2 puff(s) by inhalation every four hours as needed Albuterol Sulfate HFA 108 (90 Base) MCG/ACT 2 puffs as needed Inhalation every 4 hrs for 7 days Mar, ActiveStart: 04-68-2358vrab 2 puff(s) by inhalation every four hours [...] NEEDED. Quantity: 1 Refills: 5 Ordered: 19-Nov-2019 oLre Gardiner MD Activetake 2 puff(s) by inhalation [...] HFA) 90 mcg/inh inhalation aerosol (1 source)Start: 23-52-9828ixrx 2 puff(s) by inhalation every six hoursAlbuterol (Eqv-ProAir HFA) 90 mcg/inh inhalation aerosol 2 puff(s), Inhalation, q6hr Wheezing, 8.5 gm, Refill(s) 3, [facility]/pharmacy #[id number], 180, cm, 07/18/23 15:34:00 EDT, Height/Length Dosing, 78.8, kg,07/18/23 15:34:00 EDT, Weight Dosing Start Date: 07/18/23 Status: Orderedampicillin 500 mg oral capsule (2 sources)Penicillin-class AntibacterialStart: 10-15-2020 End: 14-67-3560vtam 1 capsule by mouth four times dailyampicillin (PRINCIPEN) 500 MG capsule Indications: Foreign body (FB) in soft tissue , Cellulitis of foot, right Take 1 (one) capsule (500 mg total) by mouth 4 (four) times a day for 10 days . 40 capsule 0 10/15/2020 10/25/2020 Activeaspirin 81 mg delayed release oral tablet (9 sources)Platelet Aggregation Inhibitor, Nonsteroidal Anti-inflammatory Drug take 1 tablet by mouth once dailyaspirin 81 MG EC tablet Take 81 mg by mouth Daily Activeazithromycin 250 mg oral tablet (2 sources)Macrolide AntimicrobialStart: 96-41-1711Wkeuxcwmd Z-Peter 250 MG 2 tablets on the first day, then 1 tablet daily for 4 days Orally Once a dayfor 5 day(s) Mar, Activecetirizine hydrochloride 10 mg oral tablet (16 sources)Histamine-1 Receptor Antagonist End: 39-85-6196hxenqrhdwq (ZYRTEC) 10 mg tablet Take 10 mg by mouth as needed. 0 04/14/2022 Discontinued (Discontinued by another Health Care Provider)Comment on above:Take 10 mg by mouth as needed.doxycycline hyclate 100 mg oral capsule (2 sources)Tetracycline-class DrugStart: 10-15-2020 End: 58-91-2887njsm 1 capsule by mouth twice dailydoxycycline hyclate (VIBRAMYCIN) 100 MG capsule Indications: Foreign body (FB) in soft tissue , Cell ulitis of foot, right Take 1 (one) capsule (100 mg total) by mouth 2 (two) times a day for 10 days . 20 capsule 0 10/15/2020 10/25/2020 Activefolic acid 2.5 mg / vitamin b12 1 mg / vitamin b6 25 mg oral tablet (9 sources)Vitamin N76tsxxr acid-vit B6-vit B12 (Folbee) 2.5-25-1 MG tablet tablet Take 1 tablet by mouth in the morning.ActiveJunel 03/18 (2 sources)Junel 03/18 Activelevothyroxine sodium 0.175 mg oral tablet (20 sources)l-ThyroxineStart: 07-29-2024 End: 37-97-4146cqtf 1 tablet by mouth in the morninglevothyroxine (SYNTHROID, LEVOTHROID) 175 MCG tablet Indications: Autoimmune thyroiditis Take 1 tablet (175 mcg total) by mouth in the morning. 90 tablet 3 07/30/2024 ActiveStart: 02-22-2024 End: 15-27-9288jsav 1 tablet by mouth before mealtimelevothyroxine (Synthroid) 200 MCG tablet Indications: Elena's thyroiditis Take 1 tablet (200 mcg) by mouth in the morning. Take before meals. 90 tablet 2 02/22/2024 12/31/2024 DiscontinuedStart: 39-24-5592xanm 1 tablet by mouth once dailylevothyroxine 200 mcg (0.2 mg) Tab = 1 tab(s), Oral, Daily, Refills(s) 0 Start Date: 01/15/24 Status: OrderedStart: 10-16-2023 End: 32-43-8095vrtb 1 tablet by mouth before mealtimelevothyroxine (Synthroid) 200 MCG tablet Indications: Elena's thyroiditis (CMS/HCC) Take 1 tablet (200 mcg) by mouth in the morning. Take before meals. 30 tablet 3 10/16/2023 11/15/2023 ActiveStart: 71-25-3889hlajqdrqytyio (SYNTHROID) 175 mcg tablet Indications: 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M through Saturdays: Take one whole tablet. Each Monday: Take one and one-half tablets. All by mouth. 100 tablet 3 07/12/2023 ActiveStart: 17-18-7988pzbe 1 tablet by mouth once dailylevothyroxine (SYNTHROID) 175 mcg tablet Indications: 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Take 1 tablet by mouth once daily. 90 tablet 3 05/31/2022 ActiveStart: 04-18-2022 End: 73-11-7545libg 1 tablet by mouth once dailylevothyroxine (SYNTHROID) 150 mcg tablet Indications: 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Take 1 tablet by mouth once daily. 90 tablet 3 04/18/2022 05/31/2022 Discontinued (Dosage adjustment)Start: 75-32-7434hlhq 1 tablet by mouth once daily levothyroxine 175 mcg (0.175 mg) Tab 175 mcg = 1 tab(s), Oral, Daily, Refills(s) 0 Start Date: 02/15/22 Status: OrderedStart: 72-95-4467wkfg 1 tablet by mouth once dailySynthroid 200 mcg (0.2 mg) Tab 200 mcg = 1 tab(s), Oral, Daily, Refills(s) 0 Start Date: 09/22/21 Status: OrderedStart: 05-20-2021 End: 13-39-1928wijg 1 tablet by mouth once dailylevothyroxine (SYNTHROID) 200 mcg tablet Indications: 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Take 1 tablet by mouth once daily. 90 tablet 3 05/20/2021 12/31/2021 Discontinued (Dosage adjustment)Start: 12-31-2018 End: 48-38-5262ixsi 1 tablet by mouth once dailylevothyroxine (SYNTHROID) 175 mcg tablet Indications: 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Take 1 tablet by mouth once daily. 90 tablet 3 12/31/2021 04/18/2022 Discontinued (Dosage adjustment)Start: 12-31-2018 End: 15-76-0140lzijcmmfoldbt (SYNTHROID) 150 mcg tablet Indications: 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One tablet daily Mondays through Saturdays. One and one-half tablets each Monday 100 tablet 3 06/04/2020 05/20/2021 Discontinued (Dosage adjustment) End: 58-21-7788xxqdgazophici (SYNTHROID, LEVOTHROID) 175 MCG tablet Take 200 mcg by mouth in the morning. 03/20/2024 Discontinued (Reorder)Synthroid 150 MCG 1 tablet in the morning on an empty stomach Monday through Monday and 1 and 1/2 tabs on Monday Orally Once a day ActiveSynthroid ActiveComment on above:One tablet daily Mondays through Saturdays. One and one-half tablets each MondayTake 1 tablet by mouth once daily.metoprolol tartrate 25 mg oral tablet (20 sources)beta-Adrenergic BlockerStart: 02-23-2021 End: 56-19-0620pptp 1 tablet by mouth once daily as neededmetoprolol tartrate (LOPRESSOR) 25 mg tablet Take 1 tablet (25 mg total) by mouth daily as needed. I f heart rate is over 120 11/02/2022 ActiveStart: 07-53-6787ahrk 0.5 tablet by mouth twice dailyMetoprolol Tartrate 25 MG Oral Tablet 1/2 tab bid Quantity: 45 Refills: 1 Ordered: 19-Nov-2019 Lore Gardiner MD Start : 14-Jan-2019 ActiveComment on above:Take 25 mg by mouth as needed.Multiple Vitamin (multivitamin) tablet (3 sources)take 1 tablet by mouth once dailyMultiple Vitamin (multivitamin) tablet Take 1 tablet by mouth Daily ActiveNebulizer/Tubing/Mouthpiece - (2 sources)Nebulizer/Tubing/Mouthpiece - as directed nebulizer every 6 hours as needed for 30 days Activepolymyxin b 49887 unt/ml / trimethoprim 1 mg/ml ophthalmic solution (1 source)Dihydrofolate Reductase Inhibitor Antibacterial, Polymyxin-class Antibacterialtake 1 drop(s) into the eye(s) four times dailyPolymyxin B- Trimethoprim 12622-1.1 UNIT/ML 1 drop into affected eye Ophthalmic Four times a day for7 days ActivepredniSONE 20 mg oral tablet (2 sources)Start: 45-64-6260zhxxnmDJEX 20 MG 3 tabs for 3 days, then 2 tabs for 3 days, 1 tab for 3 days Orally Once a day for 9 days Mar, Active vit no.124/iron/folic ( VITAMIN ORAL) (20 sources)take 1 tablet by mouth in the morningprenatal vit no.124/iron/folic ( VITAMIN ORAL) Take 1 tablet by mouth in the morning. Activeprenatal vit no.124/iron/folic ( VITAMIN ORAL) Take by mouth. 0 ActiveComment on above:Take by mouth.progesterone 100 mg vaginal insert (7 sources)Progesterone End: 78-58-5255gfaubogorfli (ENDOMETRIN) 100 mg vaginal insert Insert 2 tablets (200 mg total) into the vagina in the morning and 2 tablets (200 mg total) before bedtime. 12/31/2024 DiscontinuedProgesterone 200 MG suppository (2 sources)Start: 10-16-2023 End: 59-89-0640Ftfptkpjloic 200 MG suppository Indications: History of miscarriage Insert 200 mg into the vagina in the morning and 200 mg before bedtime. Insert suppository vaginally every night at bedtime until 12 weeks gestation. 60 suppository 3 10/16/2023 11/15/2023 Active Completed/Discontinued Medications MedicationDrug Class(es)DatesSig (Normalized)Sig (Original)adapalene 0.003 mg/mg / benzoyl peroxide 0.025 mg/mg topical gel (1 source)RetinoidStart: 08-23-2016 End: 29-00-7689IVRRVW FORTE 0.3-2.5 % glwpcephalexin 500 mg oral capsule (4 sources)Cephalosporin AntibacterialStart: 01-20-2023 End: 50-12-7423guiycjtdsy (Keflex) 500 MG capsule Take 500 mg by mouth in the morning and 500 mg at noon and 500 mg in the evening and 500 mg before bedtime. 01/20/2023 10/16/2023 DiscontinuedStart: 10-02-2020 End: 11-28-5829omnl 1 capsule by mouth four times dailycephALEXin (KEFLEX) 500 MG capsule Take 1 (one) capsule (500 mg total) by mouth 4 (four) times a day for 7 days . 28 capsule 0 10/02/2020 10/09/2020 Activeclindamycin 300 mg oral capsule (3 sources)Lincosamide AntibacterialStart: 01-21-2023 End: 75-13-5458owmf 1 capsule by mouth in the morning, then take 1 capsule by mouth in the evening, then take 1 capsule by mouth at bedtimeclindamycin (Cleocin) 300 MG capsule Take 300 mg by mouth in the morning and 300 mg in the evening and 300 mg before bedtime. 01/21/2023 10/16/2023 DiscontinuedclomiPHENE citrate 50 mg oral tablet (3 sources)Estrogen Agonist/AntagonistStart: 12-27-2024 End: 37-54-8972qywn 2 tablets by mouth once dailyclomiPHENE (Clomid) 50 MG tablet Indications: Elena's thyroiditis , Amenorrhea Take 2 tablets (100 mg) by mouth Daily for 5 days 10 tablet 12/27/2024 12/31/2024 Discontinued compounded progesterone 200mg capsule (3 sources)compounded progesterone 200mg capsule 200 mg once daily. Compounded 0 ActiveComment on above:200 mg once daily. CompoundedEPINEPHrine 0.01 mg/ml / lidocaine hydrochloride 20 mg/ml injectable solution (2 sources)Antiarrhythmic, alpha-Adrenergic Agonist, beta-Adrenergic Agonist, Catecholamine, Amide Local AnestheticStart: 10-02-2020 End: 26-36-3932tukovvlgz-EPINEPHrine (XYLOCAINE W/EPI) 2 %-1:100,000 injection 1 mLStart: 10-02-2020 End: 03-52-7047pmgcvebkc-EPINEPHrine (XYLOCAINE W/EPI) 2 %-1:100,000 injection 1 mLEthinyl Estradiol / Ferrous fumarate / Norethindrone (1 source)EstrogenStart: 09-05-2014 End: 92-44-0188vxjp 1 tablet by mouth once dailyNorethin Cale-Eth Estrad-FE 1 mg- 20 mcg (21)/75 mg (7) per tablet Take 1 tablet by mouth once daily.0 09/05/2014 09/27/2019 Discontinued (Discontinued by another Health Care Provider)Comment on above:Take 1 tablet by mouth once daily.letrozole 2.5 mg oral tablet (10 sources)Aromatase InhibitorStart: 93-46-1246tjsvrtbmw (FEMARA) 2.5 mg tablet Take 2.5 mg by mouth as directed. 0 05/03/2021 ActiveComment on above:Take 2.5 mg by mouth as directed.Lidocaine (2 sources)Antiarrhythmic, Amide Local AnestheticStart: 10-02-2020 End: 28-99-6317lmijntvio 10 mg/mL (1 %) injection 1 mL24 hr metFORMIN hydrochloride 500 mg extended release oral tablet (20 sources)BiguanideStart: 12-16-2024 End: 75-01-7030reyr 2 tablets by mouth every twenty-four hours at mealtime metFORMIN XR (Glucophage-XR) 500 MG 24 hr tablet Indications: Elena's thyroiditis , Infertilitycounseling Take 2 tablets (1,000 mg) by mouth in the evening. Take with meals 60 tablet 11 12/16/2024 12/31/2024 DiscontinuedStart: 41-79-1505pvyo 1 tablet by mouth every twenty-four hours at mealtimemetFORMIN XR (Glucophage-XR) 500 MG 24 hr tablet Indications: Elena's thyroiditis , History of miscarriage Take 1 tablet (500 mg) by mouth in the evening. Take with meals Do not crush, chew, or split. 90 tablet 2 02/22/2024 ActiveStart: 70-27-4609vxml 1 tablet by mouth once dailymetformin 500 mg ER Tab = 1 tab(s), Oral, Daily, Refills(s) 0 Start Date: 01/15/24 Status: OrderedStart: 10-16-2023 End: 81-65-1960wgab 1 tablet by mouth every twenty-four hours at mealtime metFORMIN XR (Glucophage-XR) 500 MG 24 hr tablet Indications: Elena's thyroiditis (CMS/HCC) , History of miscarriage Take 1 tablet (500 mg) by mouth in the evening. Take with meals Do not crush, chew, or split. 30 tablet 11 10/16/2023 11/15/2023 ActiveStart: 26-26-9380jtrv 1 tablet by mouth once daily metformin [...] daily with breakfast.metoclopramide 10 mg oral tablet (10 sources)Dopamine-2 Receptor AntagonistStart: 08-14-2023 End: 34-54-7905cazwrxiicnxjek (Reglan) 10 MG tablet Indications: History of hyperemesis gravidarum Take 1 tablet (10 mg) by mouth in the morning and 1 tablet (10 mg) at noon and 1 tablet (10 mg) in the evening. Take before meals. Take 1 tablet by mouth 30 minutes prior to meals 3 times daily as needed for nausea.. 90 tablet 1 08/14/2023 12/31/2024 Discontinuedmontelukast 10 mg oral tablet (18 sources)Leukotriene Receptor Antagonist End: 45-67-1842snok 1 tablet by mouth at bedtimeMontelukast Sodium 10 MG Oral Tablet TAKE 1 TABLET AT BEDTIME. Quantity: 90 Refills: 3 Ordered: 12-Dec-2019 Lore Gardiner MD End : 05-May-2022 CompleteComment on above:Take 10 mg by mouth at bedtime as needed. ondansetron 4 mg disintegrating oral tablet (8 sources)Serotonin-3 Receptor AntagonistStart: 05-25-2022 End: 73-64-8993bsomiqjkkda orally disintegrating (ZOFRAN ODT) 4 mg disintegrating tablet Take 4 mg by mouth as needed. 0 05/25/2022 06/12/2023 Discontinued (Other)Comment on above:Take 4 mg by mouth as needed. MV-Min-Fe Fum-FA-DHA ( 1 PO) (15 sources) End: 34-91-0137Fbmfrtmc MV-Min-Fe Fum-FA-DHA ( 1 PO) Take by mouth. 12/31/2024 DiscontinuedPrenatal MV-Min-Fe Fum-FA-DHA ( 1 PO) Take by mouth. Activepromethazine hydrochloride 12.5 mg oral tablet (11 sources)PhenothiazineStart: 08-14-2023 End: 63-67-6154umof 1 tablet by mouth every six hours [...] needed for nausea. 30 tablet 2 08/14/2023 12/31/2024 Discontinued SUMAtriptan 100 mg oral tablet (18 sources)Serotonin-1b and Serotonin-1d Receptor AgonistStart: 11-19-2019 End: 23-46-8950xzco 1 tablet by mouth every two hoursSUMAtriptan Succinate 100 MG Oral Tablet TAKE 1 TABLET AT ONSET OF MIGRAINE HEADACHE. MAY REPEAT IN2 HOURS IF NEEDED. Quantity: 10 Refills: 3 Ordered: 19-Nov-2019 Lore Gardiner MD Start : 19-Nov-2019 End : 05-May-2022 CompleteComment on above:Take 100 mg by mouth as needed.triamcinolone acetonide 1 mg/ml topical cream (20 sources)CorticosteroidStart: 74-80-2596ibigjajorlwbb acetonide (KENALOG) 0.1 % cream Apply 1 application to affected area as needed. 0 06/29/2015 Active Comment on above:Apply 1 application to affected area as needed. ubrogepant 100 mg oral tablet (18 sources)Start: 84-14-2007epia 1 tablet by mouth every two hours as needed Ubrelvy 100 mg oral tablet 100 mg = 1 tab(s), Oral, Once, PRN Migraine headache, may repeat dose in2 hours if needed, # 14 tab(s), Refills(s) 0, Pharmacy: [facility]/pharmacy #[id number], 180, cm, 07/18/23 15:34:00 EDT, Height/Length Dosing, 78.8, kg, 07/18/23 15:34:00 EDT, Weight Dosing Start Date: 07/18/23 Status: Ordered Start: 69-37-2595Lxffmbo PRN Migraine headache, Refills(s) 0 Start Date: 09/22/21 Status: OrderedStart: 12-28-2020 End: 35-59-6053umqyibgact (UBRELVY) 100 mg tablet Take 100 mg by mouth as needed. 0 12/28/2020 04/14/2022 Discontinued (Discontinued by another Health Care Provider)Comment on above:Take 100 mg by mouth as needed. Problems Active Problems Problem ClassificationProblemDateDocumented DateEpisodic/ChronicAsthma (7 sources)Asthma; Translations: [Exacerbation of asthma]81-37-8223Dxdwcvl Cardiac dysrhythmias (2 sources)Inappropriate sinus tachycardia; Translations: [Sinus tachycardia] ChronicCardiac dysrhythmias (6 sources)Palpitations; Translations: [Tachycardia]EpisodicConditions associated with dizziness or vertigo (2 sources)Lightheadedness; Translations: [Dizziness and giddiness]Episodic Endometriosis (13 sources)Endometriosis (clinical); Translations: [Endometriosis, unspecified] Onset: 160330-34-3172GwbradmUkwtc and electrolyte disorders (1 source)Volume depletion, unspecified; Translations: [VOLUME DEPLETION UNSPECIFIED]Onset: 56-27-4388LnssgazwDnggnmpm; including migraine (4 sources)Tgvlxqwv91-53-6582TsxnzvuFlzeadau; including migraine (2 sources)Headache; Translations: [Headache]EpisodicInflammation; infection of eye (except that caused by tuberculosis or sexually transmitteddisease) (4 sources)Bacterial conjunctivitis; Translations: [Unspecified conjunctivitis] Onset: 07-14-2021 Resolved: 503770-04-7908HdaepenmEzbxmdvgod disorders (4 sources)Long-term current use of thyroid hormone replacement therapy; Translations: [Hormone replacement therapy]EpisodicMenstrual disorders (20 sources)Irregular menstruation, unspecified; Translations: [Missed period] Onset: 385252-32-8690AvbotpbLyaglk and vomiting (3 sources)Nausea with vomiting, unspecified; Translations: [NAUSEA WITH VOMITING UNSPECIFIED]Onset: 50-93-5098PraahpirLbmui aftercare (1 source)Long-term current use of levothyroxine; Translations: [Other terminal superintendent (current) drug therapy]43-37-9076TovhhfouStiob aftercare (2 sources)Other care home (current) drug therapy; Translations: [Long-term current use of levothyroxine]Onset: 00-52-3942OkncdtxfIwarj complications of (1 source)Thyroid dysfunction during - baby not yet delivered; Translations: [Endocrine, nutritional and metabolic diseases complicating , first trimester]EpisodicOther complications of (4 sources)Mild hyperemesis gravidarum; Translations: [MILD HYPEREMESIS GRAVIDARUM]Onset: 25-94-0695YpdkehwxOiirs complications of (1 source)Other specified related conditions, first trimester; Translations: [OTH SPEC PREG RELATEDCOND 1ST TRI]Onset: 97-39-5391QbbnknogGfvqy complications of (4 sources)Supervision of with other poor reproductive or obstetric history, unspecified trimester; Translations: [SUP PG OTH POOR REPROD/OB HX UNS TM]Onset: 21-70-2218TubajaqqKdomq connective tissue disease (2 sources)Foreign body; Translations: [Residual foreign body in soft tissue] EpisodicOther connective tissue disease (1 source)Foot pain; Translations: [Pain in right foot]EpisodicOther endocrine disorders (5 sources)Polycystic ovary syndrome; Translations: [Polycystic ovaries]Onset: 335769-28-4479RdvbesjXjujx endocrine disorders (1 source)Polycystic ovarian syndrome; Translations: [Polycystic ovarian syndrome]Onset: 34-00-0859QuezzuhMbcih eye disorders (2 sources)Eye / vision finding; [...] Translations: [Body mass index (BMI) 22.0-22.9, adult]Onset: 91-44-0060GlcaszxeUmqjbiaq codes; unclassified (1 source)11 weeks gestation of ; Translations: [11 WEEKS GESTATION OF ]Onset: 70-13-2887ThgufducVidrimdl codes; unclassified (1 source)9 weeks gestation of ; Translations: [9 WEEKS GESTATION OF ]Onset: 48-49-5387YoconipyDbfb and subcutaneous tissue infections (2 sources)Cellulitis of right foot; Translations: [Cellulitis of right lower limb]EpisodicSpondylosis; intervertebral disc disorders; other back problems (4 sources)Vodukezg82-46-5995MyyjcdflLkupbxf disorders (20 sources)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; Translations: [Other specified hypothyroidism]Onset: 06-10-2016 Resolved: 60-94-3992MaexkauTbxmuncsvfqt (1 source)Hemorrhage in early , unspecified; Translations: [Hemorrhage in early , unspecified]Onset: 48-56-6971Xbgbodprqqtz (1 source)H57.89 - Other specified disorders of eye and adnexa; Translations: [H57.89 - Other specified disorders of eye and adnexa]Onset: 07-20-2021 Unclassified (1 source)E34.9 - Endocrine disorder, unspecified; Translations: [E34.9 - Endocrine disorder, unspecified]Onset: 27-69-3303Vytvsqftxkvs (1 source)N92.6 - Irregular menstruation, unspecified; Translations: [N92.6 - Irregular menstruation, unspecified]Onset: 42-70-8823Tvnnchksdlhi (1 source)Z23 - Encounter for immunization; Translations: [Z23 - Encounter for immunization]Onset: 71-50-8816Vhtelgmghxyj (1 source)Patient encounter pfaaim30-35-0647Upriiytrciau (1 source)well adultOnset: 24-78-2733Wbnhgfmfoesp (1 source)Polycystic Ovary SyndromeOnset: 51-86-2734Yzcxfkdkriva (1 source)Elena's ThyroiditisOnset: 03-20-2024 Past or Other Problems Problem ClassificationProblemDateDocumented DateEpisodic/ChronicAbdominal pain (20 sources)Right flank pain; Translations: [Unspecified abdominal pain]Onset: 641949-51-0700NglykldlKozwcszyomezi and procreative management (1 source)Encounter for other procreative management; Translations: [Encounter for other procreative management]Onset: 22-89-4434TrlzuynnVtypifpdec during ; abruptio placenta; placenta previa (4 sources)Hemorrhage in early , unspecified; Translations: [Threatened ]Onset: 98-98-1606VhepnkeaXfqvnohxrrfmw and screening for infectious disease (3 sources)Encounter for immunization; Translations: [Encounter for screening for human papillomavirus (HPV)]Onset: 01-19-2021 Resolved: 33-64-9379FubwkjqyVqbx disorders (1 source)Mood disordersOnset: 945068-13-8260Mpget complications of (1 source)Endocrine, nutritional and metabolic diseases complicating , unspecified trimester; Translations: [Thyroid disease during , unspecified trimester]Onset: 78-37-9115WocgcfutYgwxv complications of (16 sources)Hyperemesis gravidarum; Translations: [Mild hyperemesis gravidarum] Onset: 993164-33-0402GqblddwtAmdfq complications of (3 sources)Nausea and vomiting; Translations: [Vomiting of , unspecified]Onset: 08-01-2022 Resolved: 948025-47-8032DeauaojbIxuxp complications of (13 sources)Vomiting of , unspecified; Translations: [Unspecified vomiting of , unspecified as to episode of care or not applicable] Onset: 08-01-2022 Resolved: 377086-69-9572IfcnuguaSiday diseases of kidney and ureters (20 sources)Obstruction of pelviureteric junction; Translations: [Crossing vessel and stricture of ureter without hydronephrosis]Onset: 04-28-2016 30-68-9833EunubalvDfzoo ear and sense organ disorders (1 source)Otalgia, right earOnset: 05-03-2021 Resolved: 24-07-1309LtvfdonjNpdth female genital disorders (1 source)Personal history of other diseases of the female genital tract; Translations: [Personal history of oth diseases of the female genital tract] Onset: 49-21-4862ChroptlwFhrxj and delivery including normal (20 sources)First trimester ; Translations: [Encounter for supervision of other normal , first trimester]Onset: 437666-43-3025Gsmzqxuw Other screening for suspected conditions (not mental disorders or infectious disease) (5 sources)Encounter for screening for malignant neoplasm of cervix; Translations: [Other specified abnormal findings of blood chemistry]Onset: 09-67-1399TaxjfoxoGhqqvvygtwlvub and other problems of amniotic cavity (16 sources)Oligohydramnios; Translations: [Oligohydramnios, unspecified trimester, not applicable or unspecified]Onset: 275543-77-8541Plzptszq Residual codes; unclassified (20 sources)Patient encounter status; Translations: [Other specified health status]Onset: 08-95-5573QmshlpndTocxvlzf codes; unclassified (2 sources)Less than 8 weeks gestation of ; Translations: [< 8 WEEKS GESTATION ]Onset: 21-76-4319HstrxtspLrfskupf codes; unclassified (1 source)Family history of other endocrine, nutritional and metabolic diseases; Translations: [Family history of thyroid disease]Onset: 74-25-8410Rprstfma Residual codes; unclassified (20 sources)H/O: miscarriage; Translations: [Personal history of other complications of , childbirth and the puerperium]Onset: 07-23-2024 74-50-3100ReqvkclyGtwkpyrl codes; unclassified (1 source)Personal history of other complications of , childbirth and the puerperium; Translations: [Personal history of other complications of , childbirth and the puerperium]Onset: 95-77-2467AnahfzmdCgwqelngnxy (2 sources)Complete or unspecified spontaneous without complication; Translations: [Complete or unspecified spontaneous without complication]Onset: 20-11-6662KmheqqjuWswqpae disorders (5 sources)Disorder of thyroid, unspecified; Translations: [Disorder of thyroid gland]Onset: 926000-22-6897GjxhswfxLYTYBVS: Highlighted row has not occurred!Residual codes; unclassified (4 sources)DiseaseEpisodic Results Test NameValueInterpretationReference RangeFacilityIGP,APTIMA HPV,AGE GDLNon 32-61-4020ZNZ GDLN ACOG TESTINGNote.NOMS HealthcareComment on above:TESTS RESULT FLAG UNITS REF RANGE LAB Clinician Provided Cytology Information Source.............Cervix;Endocervix No. of containers..01 ThinPrep Vial Age Algo ACOG Esthela... FLAG LEGEND: L-Low Normal,H-High Normal,LL-Alert Low,HH-Alert High <-Panic Low,>-Panic High,A-Abnormal,AA-Critical Abnormal Performed at: 01 =[address] [address] Latha Henry MD, HPV APTIMANegativeNegativeNOMS HealthcareComment on above:This nucleic acid amplification test detects fourteen high- risk HPV types (16,18,31,33,35,39,45,51,52,56,58,59,66,68) without differentiation. Performed at: =[facility] [id number] Side Door Worker: Latha Henry MD, Phone: [phone] Performed at: [address] [id number] Side Door Worker: Latha Henry MD, Phone: [phone] IGP, APTIMA HPV, RFX 16/18,45Note.NOMS HealthcareComment on above:TESTS RESULT FLAG UNITS REF RANGE LAB DIAGNOSIS: 02 NEGATIVE FOR INTRAEPITHELIAL LESION OR MALIGNANCY. REACTIVE CELLULAR CHANGES AND/OR REPAIR ARE PRESENT. Specimen adequacy: 02 Satisfactory for evaluation. Endocervical and/or squamous metaplastic cells (endocervical component) are present. Performed by: 02 Yvonne Akers, Promotions Director (ASCP) Electronically si... 02 Leola Sullivan MD, Pathologist . 02 Note: Note 02 The Pap smear is a screening test designed to aid in the detection of premalignant and malignant conditions of the uterine cervix. It is not a diagnostic procedure and should not be used as the sole means of detecting cervical cancer. Both false-positive and false-negative reports do occur. Test Methodology: Note 02 This liquid based ThinPrep(R) pap test was interpreted using the [employer](TM) Cervical Algorithm whole slide imaging system. HPV Genotype Reflex Note 02 Criteria not met, HPV Genotype not performed. FLAG LEGEND: L-Low Normal,H-High Normal,LL-Alert Low,HH-Alert High <-Panic Low,>-Panic High,A-Abnormal,AA-Critical Abnormal Performed at: 02 [address] [facility] [address] [address] Latha Henry MD, BRUSH-SPATULA CERVIX ENDOCERVIX CLINISYNCNOMS [facility] WITH REFLEXon 63-38-3789UKC2.81 uIU/mLNormal 0.49-4.67ProParkland Memorial HospitalComment on above:Performed By: #### 3016-3, 3024-7 #### [facility] ([id number]) [address] [place] [address], [address] [place] [address] 20266QRTOEQKFLZKYcx 83-96-1880BJKRUMRJYJVK53.7 ng/mLNormalProParkland Memorial HospitalComment on above:Result Comment: FEMALES: 1st Tri: 4.7-50.7 ng/ml 2nd Tri: 19.4-45.3 ng/ml MENSTRUATING FEMALES: Follicular: 0.3-1.5 ng/ml Mid Luteal: 5.2-18.6 ng/ml Post [place]: <0.1-0.8 ng/ml Performed By: #### 3016-3, 3024-7 #### [facility] ([id number]) [address], [address] [place], [place] [address]WMSRUHOYGGOEhm 46-89-2733JQCIQLTYRJAE89.8 ng/mLNormalMercy Health Clermont HospitalComment on above:Result Comment: FEMALES: 1st Tri: 4.7-50.7 ng/ml 2nd Tri: 19.4-45.3 ng/ml MENSTRUATING FEMALES: Follicular: 0.3-1.5 ng/ml Mid Luteal: 5.2-18.6 ng/ml Post [place]: <0.1-0.8 ng/ml Performed By: #### ANSHUL #### [facility] ([facility]) [address] [place] [address] VIRTSH WITH REFLEXon 31-28-6612GBY1.99 uIU/mLNormal0.49-4.67 [facility]erm[facility] HospitalComment on above:Performed By: #### HARLEENR #### [facility] ([facility]) [address] [place] [address] VIRPROGESTERONEon 08-72-3838QUFWCWCYALGB96.6 ng/mLNormal [facility]erm[facility] HospitalComment on above:Result Comment: FEMALES: 1st Tri: 4.7-50.7 ng/ml 2nd Tri: 19.4-45.3 ng/ml MENSTRUATING FEMALES: Follicular: 0.3-1.5 ng/ml Mid Luteal: 5.2-18.6 ng/ml Post [place]: <0.1-0.8 ng/ml Performed By: #### GAGANGST #### [facility] ([facility]) [address] [place] [address] VIRProgesteroneon 05-55-3666Wmtbeokjfmwu [Mass/Vol]13.6 ng/mL [facility] HealthcareComment on above: FEMALES: 1st Tri: 4.7-50.7 ng/ml 2nd Tri: 19.4-45.3 ng/ml MENSTRUATING FEMALES: Follicular: 0.3-1.5 ng/ml Mid Luteal: 5.2-18.6 ng/ml Post [place]: <0.1-0.8 ng/ml PERFORMED AT [address],[place] [address] NOMS HealthcarePROGESTERONEon 74-04-8655GNNYTTISMUUW95.7 ng/mLNormalMercy Health Clermont HospitalComment on above:Result Comment: FEMALES: 1st Tri: 4.7-50.7 ng/ml 2nd Tri: 19.4-45.3 ng/ml MENSTRUATING FEMALES: Follicular: 0.3-1.5 ng/ml Mid Luteal: 5.2-18.6 ng/ml Post [place]: <0.1-0.8 ng/ml Performed By: #### PRGST #### [facility] ([facility]) [address] [place] [address] VIRTHYROID PROFILE INCLUDES TSH FT4on 35-46-4935Mgnh T4 [Mass/Vol]1.78 ng/dLHigh0.61-1.60[facility] HospitalComment on above: Performed By: #### THYR #### [facility] ([facility]) [address] [place] [address] VIRTSH0.47 uIU/mLLow0.49-4.67[facility] HospitalComment on above:Performed By: #### THYR #### [facility] ([facility]) [address] [place] [address] VIRProgesterone [Mass/Vol]on 66-00-8314NMXPGLBHJEDX8.0 ng/mL NormalProHarrison Community Hospitalca Shriners HospitalComment on above:Result Comment: FEMALES: 1st Tri: 4.7-50.7 ng/ml 2nd Tri: 19.4-45.3 ng/ml MENSTRUATING FEMALES: Follicular: 0.3-1.5 ng/ml Mid Luteal: 5.2-18.6 ng/ml Post [place]: <0.1-0.8 ng/ml Performed By: #### 2839-9 #### [facility] ([id number]) [address] [place] [address], [address] [place], [place] [address]Cscoiojojddc [Mass/Vol]on 92-13-1525UJLJQJWMZVRX52.1 ng/mLNormal ProMnoland hospital dothana Shriners HospitalComment on above:Result Comment: FEMALES: 1st Tri: 4.7-50.7 ng/ml 2nd Tri: 19.4-45.3 ng/ml MENSTRUATING FEMALES: Follicular: 0.3-1.5 ng/ml Mid Luteal: 5.2-18.6 ng/ml Post [place]: <0.1-0.8 ng/ml Performed By: #### 2839-9 #### [facility] ([id number]) [address] [place] [address], [address] [place], [place] [address] THYROIDon 31-64-2192BE THYROIDUS THYROID CLINICAL INFORMATION: Thyroid disease; Elena's [...] Finalized by Jose Aguiar on 04/01/2024 12:41 [facility] US Thyroid glandon 38-40-0836PPXETPUZ INFORMATION: Thyroid disease; Elena's thyroiditis. TECHNIQUE: Real [...] Kyle Simmons DO on 04/01/2024 11:31 AM IJose have personally reviewed the image(s) and agree with and/or edited the report Finalized by Jose Aguiar on 04/01/2024 12:41 PMSECTPAJose Aguiar MD - 04/01/2024 CLINICAL INFORMATION: Thyroid disease; [...] by Jose Aguiar on 04/01/2024 12:41 PM [facility] Thyroid glandOrdered By: Jose Aguiar on 04-01-2024 [facility] Work Phone: us Thyroid glandon 13-57-3086Zhecuxxqe Study observation (narrative)[facility] for RehabilitationSurIDx [facility] HospitalFREE T4on 10-52-5946Vbnw T4 [Mass/Vol]1.73 ng/dLHigh0.61-1.60ProParkland Memorial HospitalComment on above: Performed By: #### 3016-3, 3024-7 #### [facility] ([id number]) [address] [place] [address], [address] [place], [place] [address] Qnon 56-22-1698VTP1.13 uIU/mLLow0.49-4.67ProParkland Memorial HospitalComment on above:Performed By: #### 3016-3, 3024-7 #### [facility] ([id number]) [address] [place] [address], [address] [place], [place] [address]UWV w/ Auto Diffon 49-24-7312Cchdouplp/100 WBC (Bld)0.5 %Normal 0.0-2.0[facility] Memorial HospitalComment on above:Performed By: #### [id number] #### [facility] [address], [place] [address]Etsgdinky/Leukocytes Auto (Bld) [Pure # fraction]0.1 E9/LNormal 0.0-0.2FGuernsey Memorial HospitalComment on above:Performed By: #### [id number] #### [facility] [address] [place] [address]Tzhurolbwux (Bld) [#/Vol]0.1 E9/LNormal0.0-0.5FGuernsey Memorial HospitalComment on above:Performed By: #### [id number] #### [facility] [address] [place] [address]Mubeehmzhir/100 WBC (Bld)0.8 %Normal0.0-8.0[facility] Memorial HospitalComment on above:Performed By: #### [id number] #### [facility] [address] [place] [address]Cmoybwkfdte distribution width (RBC) [Ratio]13.8 %Normal 10.9-14.2FGuernsey Memorial HospitalComment on above:Performed By: #### [id number] #### [facility] [address] [place] [address]Rsnikomkpu (Bld) [Volume fraction]44.3 %Dncghb50.0-46.0[facility] HospitalComment on above:Performed By: #### [id number] #### [facility] [address] [place] [address]Dprtbpmkks (Bld) [Mass/Vol]14.4 g/zBZdaryw46.0-16.0[facility] HospitalComment on above:Performed By: #### [id number] #### [facility] [address] [place] [address]Twauoyhgqao (Bld) [#/Vol]3.0 E9/LNormal1.0-4.0[facility] HospitalComment on above:Performed By: #### [id number] #### [facility] [address] [place] [address]Xxpgsibqldc/100 WBC (Bld)28.3 %Zhkhqp81.0-50.0[facility] HospitalComment on above:Performed By: #### [id number] #### [facility] [address] [place] [address]DQW (RBC) [Entitic mass]29.5 ryGcxfjo22.0-34.0[facility] HospitalComment on above:Performed By: #### [id number] #### [facility] [address] [place] [address]BFVR (RBC) [Mass/Vol]32.6 g/sVMaaqel46.4-36.0[facility] HospitalComment on above:Performed By: #### [id number] #### [facility] [address] [place] [address]YEB (RBC) [Entitic vol]90.6 nLZaqcvj33.0-100.0[facility] HospitalComment on above:Performed By: #### [id number] #### [facility] [address] [place] [address]Ajqftvuum (Bld) [#/Vol]0.6 E9/LNormal0.2-1.0[facility] HospitalComment on above:Performed By: #### [id number] #### [facility] [address] [place] [address]Twiwsvnclll (Bld) [#/Vol]6.9 E9/LNormal2.0-7.5FGuernsey Memorial HospitalComment on above:Performed By: #### [id number] #### [facility] [address] [place] [address]Oxrmleornte/100 WBC (Bld)64.7 %Rypsad76.0-75.0[facility] HospitalComment on above:Performed By: #### [id number] #### [facility] [address] [place] [address]Jidaydtz mean volume (Bld) [Entitic vol]9.2 fLNormal6.4-10.8 [facility] HospitalComment on above:Performed By: #### [id number] #### [facility] [address] [place], [place] [address]Ccuxklubc (Bld) [#/Vol]380.0 E9/CKfyskc115.0-500.0[facility] HospitalComment on above:Performed By: #### [id number] #### [facility] [address] [place] [address]KCW (Bld) [#/Vol]4.9 E12/LNormal4.3-5.9[facility] HospitalComment on above:Performed By: #### [id number] #### [facility] [address] [place] [address]RZR corrected for nucl RBC Auto (Bld) [#/Vol]10.7 E9/LNormal 4.0-11.0[facility] HospitalComment on above:Performed By: #### [id number] #### [facility] [address] [place] [address]DELli 87-04-1203Ipxyrgp [Mass/Vol]4.6 g/dLNormal3.3-5.0[facility] HospitalComment on above:Performed By: #### [id number] #### [facility] [address] [place] [address]Gmtuoad/Globulin (S) [Mass conc ratio]1.5Fzrruu3.1-2.2FGuernsey Memorial HospitalComment on above:Performed By: #### [id number] #### [facility] [address] [place] [address]ALO [Catalytic activity/Vol]65 Int._Unit/BScjufp37-51HpgrjeHolmes County Joel Pomerene Memorial HospitalComment on above:Performed By: #### [id number] #### [facility] [address] [place] [address]MDK No additional P-5'-P [Catalytic activity/Vol]13 Int._Unit/L Normal6-46[facility] HospitalComment on above:Performed By: #### [id number] #### [facility] [address] [place] [address]Wdoue gap [Moles/Vol]10 mmol/LNormal6-16[facility] HospitalComment on above:Performed By: #### [id number] #### [facility] [address] [place], [place] [address]SSO [Catalytic activity/Vol]16 Int._Unit/LNormal5-43[facility] HospitalComment on above:Performed By: #### [id number] #### [facility] [address] [place], [place] [address]Vgrbjcxqb [Mass/Vol]0.4 mg/dLNormal0.0-1.1FGuernsey Memorial HospitalComment on above:Performed By: #### [id number] #### [facility] [address] [place], [place] [address]Sdonynb [Mass/Vol]9.6 mg/dLNormal8.9-11.1FGuernsey Memorial HospitalComment on above:Performed By: #### [id number] #### [facility] [address] [place], [place] [address]Xlicjuhw [Moles/Vol]103 mmol/CVflzcf640-262GkkwglHolmes County Joel Pomerene Memorial HospitalComment on above:Performed By: #### [id number] #### [facility] [address] [place], [place] [address]OV3 [Moles/Vol]28 mmol/AYjmtfj56-35UoqdkwHolmes County Joel Pomerene Memorial Hospital Comment on above:Performed By: #### [id number] #### [facility] [address] [place], [place] [address]Abztoxviwt [Mass/Vol]0.8 mg/dLNormal0.5-1.3FGuernsey Memorial HospitalComment on above:Performed By: #### [id number] #### [facility] [address] [place], [place] [address]Hdrtdjsu (S) [Mass/Vol]3.1 g/dLNormal1.4-4.0[facility] Memorial HospitalComment on above:Performed By: #### [id number] #### [facility] [address] [place], [place] [address]Puofyop [Mass/Vol]88 mg/pDJzkcer93-665QodbnnHolmes County Joel Pomerene Memorial HospitalComment on above:Performed By: #### [id number] #### [facility] [address] [place], [place] [address]Afafxxnvr [Moles/Vol]4.1 mmol/LNormal3.5-5.3FGuernsey Memorial HospitalComment on above:Performed By: #### [id number] #### [facility] [address] [place], [place] [address]Yzdlzkx [Mass/Vol]7.7 g/dLNormal6.0-7.8[facility] Memorial HospitalComment on above:Performed By: #### [id number] #### [facility] [address] [place] [address]Letrlc [Moles/Vol]137 mmol/ONimzoc975-728KcdvtoHolmes County Joel Pomerene Memorial HospitalComment on above:Performed By: #### [id number] #### [facility] [address] [place] [address]Ybhp nitrogen [Mass/Vol]16 mg/dLNormal5-21[facility] HospitalComment on above:Performed By: #### [id number] #### [facility] [address] [place] [address]Jdwu nitrogen/Creatinine [Mass ratio]20 No XbyfaCyioxx38-07 [facility] HospitalComment on above:Performed By: #### [id number] #### [facility] [address] [place], [place] [address]Efaxj Panelon 52-07-5786Etxscylzwut [Mass/Vol]151 mg/dLNormal 120-200[facility] HospitalComment on above:Performed By: #### [id number] #### [facility] [address] [place], [place] [address]Lodpgoihonc in HDL [Mass/Vol]35 mg/dLInvalid Interpretation CodeHolmes County Joel Pomerene Memorial HospitalComment on above:Result Comment: '>= 60 LOW RISK' '<= 40 HIGH RISK'Performed By: #### [id number] #### [facility] [address] [place], [place] [address]Lztdimmwzex in LDL [Mass/Vol]96 mg/dLNormal<=129[facility] HospitalComment on above:Performed By: #### [id number] #### [facility] [address] [place], [place] [address]Oxccthbmcbh in VLDL [Mass/Vol]43 mg/dLHigh7-40[facility] Memorial HospitalComment on above:Performed By: #### [id number] #### [facility] [address] [place], [place] [address]Ioukxuswwwxh [Mass/Vol]215 mg/dLHigh<=149[facility] Memorial HospitalComment on above:Performed By: #### [id number] #### [facility] [address] [place], [place] [address]wYGBrp 27-21-8693gTKS770 mL/min/1.73 q0Vpzeer>=59[facility] Memorial HospitalComment on above:Performed By: #### [id number] #### [facility] [address] [place], [place] [address]Jyqkpe Medicine Office/Clinic Noteon 20-92-9708Gkgkoi Medicine Office/Clinic NoteFami Medicine Office/Clinic Note Chief [...] Diff Comprehensive Metabolic Panel Lab Specimen Collect 38225 Lipid Panel 2. 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 Continue current thyroid supplementation and monitor thyroid function regularly to ensure euthyroid status is maintained. Ordered: CBC w/ Auto Diff Comprehensive Metabolic Panel Lab Specimen Collect 12042 Lipid Panel 3. Mild persistent asthma (J45.30: Mild persistent asthma, uncomplicated) Monitor asthma symptoms and adjust medications as needed. Ensure that the patient has an asthma action plan in place. Ordered: CBC w/ Auto Diff Comprehensive Metabolic Panel Lab Specimen Collect 20298 Lipid Panel 4. Polycystic ovary syndrome (E28.2: Polycystic ovarian syndrome) Continue metformin and initiate letrozole therapy in an attempt to enhance fertility. Monitor menstrual cycles and adjust medication as necessary. Renew progesterone prescription to ensure availability. Ordered: CBC w/ Auto Diff Comprehensive Metabolic Panel Lab Specimen Collect 23049 Lipid Panel 5. Nonsmoker (Z78.9: Other specified [...] available Problem List/Past Medica (more content not included)...[facility] CenterComment on above:Result Comment: Electronically Signed By: Chen Lucia MD\.br\Date and Time Signed: 01/15/24 16:06 ESTUS Breast - lefton 14-61[place] [address] Ultrasound Report Signed Patient: KEYSHA GARDNER MR#: [id number] : 1995 Acct:[id number] Age/Sex: 28 / F ADM Date: 10/12/23 Loc: US Attending Dr: Gigi Tafoya D.O. Ordering Physician: Gigi Tafoya D.O. Date of Service: 10/12/23 Procedure(s): US breast LT complete Accession Number(s): [id number] cc: Gigi Tafoya D.O.; CHEN LUCIA Patient Name: KEYSHA GARDNER MR#: [id number] : 1995 Exam Date: 10/12/2023 Ordering Doctor: [...] Signed By: 10/12/23 1539 DD/ 1538 TD/TT: Product Tester:TBHRadiology, Radiologist, MD - 10/12/2023 [place] [address] Ultrasound Report Signed Patient: KEYSHA GARDNER MR#: [id number] : 1995 Acct:[id number] Age/Sex: 28 / F ADM Date: 10/12/23 Loc: US Attending Dr: Gigi Tafoya D.O. Ordering Physician: Gigi Tafoya D.O. Date of Service: 10/12/23 Procedure(s): US breast LT complete Accession Number(s): [id number] cc: Gigi Tafoya D.O.; CHEN LUCIA Patient Name: KEYSHA GARDNER MR#: [id number] : 1995 Exam Date: 10/12/2023 Ordering Doctor: [...] Signed By: 10/12/23 1539 DD/ 1538 TD/TT: Product Tester: [facility] HOSPITALRamona Lake [facility] Study observation (narrative)[facility] Breast - leftOrdered By: Radiologist Radiology on 41-31-9075EAMY [employer] Work Phone: [phone]-Vurlfygbtypxy Formon 38-06-9611Jus-Certification [id number]#1.00TIFMercy Health St. Anne HospitalAmbulatory Visit Summaryon 68-59-1946Jblmajyssq Visit Summary KEYSHA GARDNER :1995 Visit Date:07/18/2023 [...] Follow-Up Appointments Monday 3:30 PM EST With: Rea FREIRE, Chen David Where: [facility] Medicine Office/Clinic Noteon 00-19-3055Oswpwq Medicine Office/Clinic NoteHPI Staff Keysha is a [...] Daily, # 12 tab(s), Refills(s) 0, Pharmacy: [facility]/pharmacy #[id number], cm, 02/14/23 15:15:00 EST, Height/Length Dosing, [...] 1994 Recorded hepatitis B adult vaccine 1994 [facility] Comment on above:Result Comment: Electronically Signed By: [...] numbers. This can be done either in Green[place]ic (U.S.) or metric measurements. Note that charts and online BMI calculators are available to help you find your BMI quickly and easily without having to do these calculations yourself. To calculate your BMI in [place]ic (U.S.) measurements: 1. Measure your weight in [...] for Disease Control and Prevention: www.cdc.gov ? [place] Heart Association: www.heart.org ? National Heart, Lung, and Blood [place]: www.nhlbi.nih.gov Summary ? Body mass index (BMI) is a number that is calculated from a person's weight and height. ? BMI may help estimate how much of a person's weight is composed of fat. BMI can help identify those who may be at higher risk for certain medical problems. ? BMI can be measured using Green[place]ic measurements or metric measurements. ? BMI charts are used to identify whether you are underweight, normal weight, overweight, or obese. This information is not intended to replace advice given to you by your health care provider. Make sure you discuss any questions you have with your health care provider. Document Revised: 11/06/2019 Document Reviewed: 09/13/2019 [employer] Patient Education ? 2022 Koru.[facility] CNOVon 19-49-8362BNXIEaogpm Visit (ANTONETTE) KEYSHA GARDNER ([id number]) 1995 F Date Time Provider Department 06/12/23 9:00 AM JOSE LEROY During your visit today, we recorded the following information about you: Pulse Blood pressure Weight Height 87/minute 127/77 78 kg 1.778 m Jose Leroy MD 07/12/2023 3:23 PM Addendum . [facility] - [place] [address], [address] [place] [id number] [facility] General Endocrinology - [place] [address], [address] [place], [place] [address] Patient's name: Keysha Gardner Patient's date of : 1995 Date of encounter: 06/12/2023 History of present illness: Keysha Gardner is a 28 year old female who presents for follow up of an endocrinology issue. Thyroid gland disorder: Previous history: 2000: Around this time, age ~5 (first grade) was found to have hypothyroidism. Per patient, grinder outside diameter felt lump in neck . 2000: Ultrasound of thyroid, at outside hospital: I dont have this to review. 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 Started on a dose of levothyroxine. 2313-0718: Followed by pediatric endocrinology. Multiple ultrasound studies. [...] per week, mean dose 161 mcg. 05/2020: [facility] Ul[facility]ound: Right lobe 48.9 x 12.0 x 13.3 mm (length x width x depth), Left lobe 49 x 14.5 x 11.0 mm (length x width x depth), Isthmus 2.3 mm (length x width x depth). Heterogeneity in both lobes. No distinct nodules. Findings consistent with her known (more content not included)...NormalNorthern Maine Medical CenterRAD - Ultrasound Reporton 47-52-2962FSL - Ultrasound [id number]#1.00TIFFNormalHolmes County Joel Pomerene Memorial HospitalUS Breast - lefton 25-53-8846LmqMad[place] [address] Ultrasound Report Signed Patient: KEYSHA GARDNER MR#: [id number] : 1995 Acct:[id number] Age/Sex: 27 / F ADM Date: 04/18/23 Loc: US Attending Dr: Gigi Tafoya D.O. Ordering Physician: Gigi Tafoya D.O. Date of Service: 04/18/23 Procedure(s): US breast LT complete Accession Number(s): [id number] cc: Gigi Tafoya D.O.; CHEN LUCIA Patient Name: KEYSHA GARDNER MR#: [id number] : 1995 Exam Date: 04/18/2023 Ordering Doctor: [...] Dictated By: Tri Berrios M.D. Signed By: 04/18/23 1434 DD/ 32 TD/TT: Product Tester:TBHRadiology, Radiologist, - 05/03/2023 [place] [address] Ultrasound Report Signed Patient: KEYSHA GARDNER MR#: [id number] : 1995 Acct:[id number] Age/Sex: 27 / F ADM Date: 04/18/23 Loc: US Attending Dr: Gigi Tafoya D.O. Ordering Physician: Gigi Tafoya D.O. Date of Service: 04/18/23 Procedure(s): US breast LT complete Accession Number(s): [id number] cc: Gigi Tafoya D.O.; CHEN LUCIA Patient Name: KEYSHA GARDNER MR#: [id number] : 1995 Exam Date: 04/18/2023 Ordering Doctor: [...] M.D. Signed By: 04/18/231433 DD/ 32 TD/TT: Product Tester: TERE GaleasRadiology Study observation (narrative)TERE GaleasUS Breast - leftOrdered By: Radiologist Radiology on 46-18-1310NZOP [employer] Work Phone: cNPNon [phone] (ENEle[employer]) KEYSHA GARDNER ([id number]) 1995 F Date Time Provider Department 03/23/23 JOSE LEROY During your visit today, we recorded the following information about you: Kareen Vasquez 03/23/2023 3:49 PM Signed ----- Message from Raven Farr sent at 03/23/2023 3:32 PM EST ----- Regarding: Endocrinology/Rad/Thyroid/Prior Authorization Question Contact: Endocrinology/Rad/Thyroid/Prior Authorization Question Patient has been identified by name and Date of (Y/N): y Patient: Keysha Hampton Jj Date of : 1995 Provider for this encounter: Dr Leroy Reason for the call/escalation: scheduled appt w/ Dr Leroy 06/12/23. Scheduled w/ authorized [facility] referral. Patient said Dr. Leroy's office usually submits a prior authorization to her insurance company before visit Person calling if other than patient: n/a Return call to if other than patient: n/a Best contact number: [phone] Thank you, Raven Farr March 23, 2023 [...] Status:Closed by KAREEN VASQUEZ on 03/23/23[facility] HospitalConsultation Noteon 65-30-6204Rtobqrgghfsh Note [id number]#1.00TIFMercy Health St. Anne HospitalAmbulatory Visit Summaryon 88-24-5418Dcnfmqmjnj Visit Summary KEYSHA GARDNER :1995 Visit Date:02/14/2023 Ambulatory Visit Instructions Your [...] you for choosing us for your care. [facility] Medicine Office/Clinic Noteon 80-46-7368Wclgsx Medicine Office/Clinic NoteHPI Staff Keysha is a [...] 1995 Recorded hepatitis B adult vaccine 1994 Recorded[facility] Comment on above:Result Comment: Electronically Signed By: Rea FREIRE, Chen Johnson.br\Date and Time Signed: 02/14/23 15:34 ESTPatient Educationon [...] numbers. This can be done either in [place]ic (U.S.) or metric measurements. Note that charts and online BMI calculators are available to help you find your BMI quickly and easily without having to do these calculations yourself. To calculate your BMI in [place]ic ([place].S.) measurements: 1. Measure your weight in [...] for Disease Control and Prevention: www.cdc.gov ? [place] Heart Association: www.heart.org ? National Heart, Lung, and Blood [place]: www.nhlbi.nih.gov Summary ? Body mass index (BMI) is a number that is calculated from a person's weight and height. ? BMI may help estimate how much of a person's weight is composed of fat. BMI can help identify those who may be at higher risk for certain medical problems. ? BMI can be measured using [place]ic measurements or metric measurements. ? BMI charts are used to identify whether you are underweight, normal weight, overweight, or obese. This information is not intended to replace advice given to you by your health care provider. Make sure you discuss any questions you have with your health care provider. Document Revised: 11/06/2019 Document Reviewed: 09/13/2019 [employer] Patient Education ? 2022 Koru.[facility] Consultation Noteon 38-48-3223Lkduvulaujfr Note [id number]#1.00TIFFNoOhioHealth Marion General HospitalAdmission Noteon 95-50-7904Zwxipqnjm Note [id number]#1.00TIFMercy Health St. Anne HospitalOperative Reporton 94-29-4252Nkvbotjyt Report [id number]#1.00TIFMercy Health St. Anne HospitalConsultation Noteon 17-22-8651Mjsahkvyesqa Note [id number]#1.00TIFAvita Health System Correspondenceon 61-66-3633ArcpgcyAstra Health Center [id number]#1.00TIFAvita Health System Correspondence [id number]#1.00[facility] Correspondence [id number]#1.00TIFMercy Health St. Anne HospitalRAD - Ultrasound Reporton 10-02-5949OWC - Ultrasound Report [id number]#1.00TIFFPremier Health Upper Valley Medical CenterRAD - Ultrasound [id number]#1.00TIFF [facility] Medical CenterUS BREAST LT LIMITEDon 47-67-3203JswMad[place], [place] [address] Ultrasound Report Signed Patient: KEYSHA GARDNER MR#: [id number] : 1995 Acct:[id number] Age/Sex: 27 / F ADM Date: Loc: [facility] 252-[address]: Gigi Tafoya D.O. Ordering Physician: Gigi Tafoya D.O. Date of Service: 01/21/23 Procedure(s): US breast LT limited Accession Number(s): [id number] cc: Gigi Tafoya D.O.; CHEN LUCIA Patient Name: KEYSHA GARDNER MR#: [id number] : 1995 Exam Date: 01/21/2023 Ordering Doctor: [...] Signed By: 01/23/23 1014 DD/ 1013 TD/TT: Product Tester:TBHRadiology, Radiologist, MD - 01/23/2023 [place] [address] Ultrasound Report Signed Patient: KEYSHA GARDNER MR#: [id number] : 1995 Acct:[id number] Age/Sex: 27 / F ADM Date: Loc: [facility] 252-[address]: Gigi Tafoya D.O. Ordering Physician: Gigi Tafoya D.O. Date of Service: 01/21/23 Procedure(s): US breast LT limited Accession Number(s): [id number] cc: Gigi Tafoya D.O.; CHEN LUCIA Patient Name: KEYSHA GARDNER MR#: [id number] : 1995 Exam Date: 01/21/2023 Ordering Doctor: [...] Signed By: 01/23/23 1014 DD/ 1013 TD/TT: Product Tester: TERE HealthcareRadiology Study observation (narrative)[facility] HospitalUS BREAST LT LIMITEDOrdered By: Radiologist Radiology on 22-00-7154PSKJ [employer] Work Phone: US Breast - lefton 58-97-2250[address] [address] Ultrasound Report Signed Patient: KEYSHA GARDNER MR#: [id number] : 1995 Acct:[id number] Age/Sex: 27 / F ADM Date: Loc: [facility] 252-[address]: Gigi Tafoya D.O. Ordering Physician: Gigi Tafoya D.O. Date of Service: 01/20/23 Procedure(s): US breast LT complete Accession Number(s): [id number] cc: Gigi Tafoya D.O.; CHEN LUCIA Patient Name: KEYSHA GARDNER MR#: [id number] : 1995 Exam Date: 01/20/2023 Ordering Doctor: [...] Signed By: 01/23/23 1010 DD/ 1009 TD/TT: Product Tester:TBHRadiology, Radiologist, - 01/23/2023 [place] [address] Ultrasound Report Signed Patient: KEYSHA GARDNER MR#: [id number] : 1995 Acct:[id number] Age/Sex: 27 / F ADM Date: Loc: [facility] 252-[address]: Gigi Tafoya D.O. Ordering Physician: Gigi Tafoya D.O. Date of Service: 01/20/23 Procedure(s): US breast LT complete Accession Number(s): [id number] cc: Gigi Tafoya D.O.; CHEN LUCIA Patient Name: KEYSHA GARDNER MR#: [id number] : 1995 Exam Date: 01/20/2023 Ordering Doctor: [...] Signed By: 01/23/23 1010 DD/ 1009 TD/TT: Product Tester: TERE HealthcareRadiology Study observation (narrative)NOM HealthcareUS Breast - leftOrdered By: Radiologist Radiology on 66-36-4461STTD [employer] Work Phone: US OB BPP W NON-STRESSon 87-91-1978IpiMad[place] [address] Ultrasound Report Signed Patient: KEYSHA GARDNER MR#: [id number] : 1995 Acct:[id number] Age/Sex: 27 / F ADM Date: 11/14/22 Loc: US Attending Dr: Gigi Tafoya D.O. Ordering Physician: Gigi Tafoya D.O. Date of Service: 11/14/22 Procedure(s): US OB BPP w non-stress Accession Number(s): [id number] cc: Gigi Tafoya D.O.; CHEN LUCIA The [address] [address] Patient Name: KEYSHA GARDNER MRN: [facility]:[id number] date: 1995 Sex: F Assigned Patient Location: [facility] Current Patient Location: [place] Accession/Order Number: [id number] Exam Date: 11/14/2022 18:01 Report Date: 11/15/2022 [...] RAFY GR Date: 11/15/2022 05:03 Dictated By: Rfay Gr M.D. Signed By: 11/15/22505 DD/ 2 TD/TT: Product Tester:TBHRadiology, Radiologist, MD - 11/18/2022 [place] [address] Ultrasound Report Signed Patient: KEYSHA GARDNER MR#: [id number] : 1995 Acct:[id number] Age/Sex: 27 / F ADM Date: 11/14/22 Loc: US Attending Dr: Gigi Tafoya D.O. Ordering Physician: Gigi Tafoya D.O. Date of Service: 11/14/22 Procedure(s): US OB BPP w non-stress Accession Number(s): [id number] cc: Gigi Tafyoa D.O.; CHEN LUCIA [address] [address] Patient Name: KEYSHA GARDNER MRN: TB:[id number] date: 1995 Sex: F Assigned Patient Location: [facility] Current Patient Location: [place] Accession/Order Number: [id number] Exam Date: 11/14/2022 18:01 Report Date: 11/15/2022 [...] M.D. Signed By: 11/15/22505 DD/ 2 TD/TT: Product Tester: TERE HealthcareRadiology Study observation (narrative)TERE GaleasUS OB BPP W NON-STRESSOrdered By: Radiologist Radiology on 17-32-0924ZWRY Healthcare Work Phone: cNPNon [phone] (ENAGST) KEYSHA GARDNER ([id number]) 1995 F Date Time Provider Department 09/20/22 [...] [* Encounter Status:Closed by KAREEN VASQUEZ on 09/21/22[facility] HospitalCNCOon 95-47-6457GVNEPmtrra TextNorthern Light Blue Hill HospitalCBC AUTO DIFFon 72-59-7603QKLP #0.1 103/ulNormal0.0-0.1[facility] Samaritan HospitalComment on above:Performed By: #### HBSANS #### [facility] [address] [place] [address] [address] Reagan MoffettBasophils/100 WBC (Bld)0.4 %Normal0.2-2.0The [facility] Comment on above:Performed By: #### HBSANS #### [facility] [address] [place] [address] Dr. Reagan Coles #0.1 103/ulNormal0.0-0.7The [facility] CampusComment on above: Performed By: #### HBSANS #### [facility] [address] [place] [address] Dr. Reagan Connollyosinophils/100 WBC (Bld)0.6 %Critically low0.9-7.0The [facility] CampusComment on above:Performed By: #### HBSANS #### [facility] [address] [place] [address] Dr. Reagan Connollyrythrocyte distribution width (RBC) [Ratio]11.9 %Dtktrt80.0-15.0 The [facility] CampusComment on above:Performed By: #### HBSANS #### [facility] [address] [place] [address] Dr. Reagan MoffettHematocrit (Bld) [Volume fraction]39.5 %Nigfds02.0-48.0The [facility] CampusComment on above:Performed By: #### HBSANS #### [facility] [address] [place] [address] Dr. Reagan MoffettHemoglobin (Bld) [Mass/Vol]13.5 g/uVPgeyei58.0-16.0The [facility] CampusComment on above:Performed By: #### HBSANS #### [facility] [address] [place] [address] Dr. Reagan Yun #0.06 10e3/ulCritically high0.00-0.03The [facility] Comment on above:Performed By: #### HBSANS #### [facility] [address] [place] [address] Dr. Reagan Yun %0.4 %Normal0.0-0.5The [facility] CampusComment on above: Performed By: #### HBSANS #### [facility] [address] [place] [address] Dr. Reagan Ramirez #2.2 103/ulNormal1.2-3.8The [facility] CampusComment on above:Performed By: #### HBSANS #### [facility] [address] [place] [address] Dr. Reagan Corralhocytes/100 WBC (Bld)16.3 %Critically low20.5-60.0The [facility] CampusComment on above:Performed By: #### HBSANS #### [facility] [address] [place] [address] Dr. Reagan NullUAL DIFF REQNONormalThe [facility] CampusComment on above: Performed By: #### HBSANS #### [facility] [address] [place] [address] Dr. Reagan Christina (RBC) [Entitic mass]30.1 rdBnqjzf11.7-34.0The [facility] CampusComment on above:Performed By: #### HBSANS #### [facility] [address] [place] [address] Dr. Reagan Christina (RBC) [Mass/Vol]34.2 g/nLEimuxg88.9-35.2The [facility] CampusComment on above:Performed By: #### HBSANS #### [facility] [address] [place] [address] Dr. Reagan Christina (RBC) [Entitic vol]88.2 pRCkdorj05.0-99.0The [facility] CampusComment on above:Performed By: #### HBSANS #### [facility] [address] [place] [address] Dr. Reagan Richey #0.8 103/ulNormal0.3-0.8The [facility] CampusComment on above:Performed By: #### HBSANS #### [facility] [address] [place] [address] Dr. Reagan Benjaminocytes/100 WBC (Bld)6.2 %Normal1.7-12.0The [facility] Comment on above:Performed By: #### HBSANS #### [facility] [address] [place] [address] Dr. Reagan Canseco #10.2 103/ulCritically high1.4-6.5The [facility] Comment on above:Performed By: #### HBSANS #### [facility] [address] [place] [address] Dr. Reagan Antonioutrophils/100 WBC (Bld)76.1 %Critically high43.0-75.0The [facility] CampusComment on above:Performed By: #### HBSANS #### [facility] [address] [place] [address] Dr. Reagan Gregory mean volume (Bld) [Entitic vol]9.8 fLNormal9.5-13.5The [facility] CampusComment on above:Performed By: #### HBSANS #### [facility] [address] [place] [address] Dr. Reagan MoffettPLT322 103/plNltzja842-154Xpv [facility] CampusComment on above: Performed By: #### HBSANS #### [facility] [address] [place] [address] Dr. Reagan MoffettRBC4.48 106/ulNormal4.20-5.40The [facility] CampusComment on above:Performed By: #### HBSANS #### [facility] [address] [place] [address] Dr. Reagan MoffettWBC13.5 103/ulCritically high4.0-11.0The [facility] CampusComment on above:Performed By: #### HBSANS #### [facility] [address] [place] [address] [address] Reagan MoffettPROF 14(COMP METB)on 10-76-8628Aeykvzh [Mass/Vol]3.7 g/dLNormal 3.4-5.0The [facility] CampusComment on above:Performed By: #### HBSANS #### [facility] [address] [place] [address] [address] Reagan MoffettAlbumin/Globulin [Mass ratio]0.8 {ratio}NormalThe [facility] CampusComment on above:Performed By: #### HBSANS #### [facility] [address] [place] [address] [address] Reagan Osorio [Catalytic activity/Vol]79 U/KOzjgke41-478Aft [facility] CampusComment on above:Performed By: #### HBSANS #### [facility] [address] [place] [address] Dr. Reagan RodriguezT [Catalytic activity/Vol]22 U/XKtkihm01-51Wvv [facility] CampusComment on above:Performed By: #### HBSANS #### [facility] [address] [place] [address] [address] Reagan Philip gap [Moles/Vol]14.7 mmol/LNormalThe [facility] Comment on above:Performed By: #### HBSANS #### [facility] [address] [place] [address] [address] Reagan MoffettAST [Catalytic activity/Vol]14 U/LCritically eah29-04Kiu [facility] CampusComment on above:Performed By: #### HBSANS #### [facility] [address] [address] [address] Reagan MoffettBilirubin [Mass/Vol]0.2 mg/dLNormal0.2-1.0The [facility] Comment on above:Performed By: #### HBSANS #### [facility] [address] [address] [address] Reagan MoffettCalcium [Mass/Vol]9.1 mg/dLNormal8.5-10.1The [facility] Comment on above:Performed By: #### HBSANS #### [facility] [address] [address] [address] Reagan MoffettChloride [Moles/Vol]100 mmol/KClcmso47-087Euu [facility] Comment on above:Performed By: #### HBSANS #### [facility] [address] [address] [address] Reagan MoffettCO2 [Moles/Vol]24.5 mmol/BMhhqqd16.0-32.0The [facility] Comment on above:Performed By: #### HBSANS #### [facility] [address] [address] [address] Reagan MoffettCreatinine [Mass/Vol]0.60 mg/dLNormal0.55-1.02The [facility] CampusComment on above:Performed By: #### HBSANS #### [facility] [address] [place] [address] [address] Reagan ConnollyGFR-AF FINNISH>60Normal>=60The [facility] CampusComment on above:Performed By: #### HBSANS #### [facility] [address] [address] [address] Reagan ConnollyGFR-NON AF FINNISH>60Normal>=60The [facility] CampusComment on above:Performed By: #### HBSANS #### [facility] [address] [address] [address] Reagan MoffettGlobulin (S) [Mass/Vol]4.6 g/dLNormalThe [facility] CampusComment on above:Performed By: #### HBSANS #### [facility] [address] [address] [address] Reagan MoffettGlucose [Mass/Vol]87 mg/nJVhiznz57-322ThoTrihealth Good Samaritan Hospital Comment on above:Performed By: #### HBSANS #### [facility] [address] [address] [address] Reagan MoffettPotassium [Moles/Vol]3.2 mmol/LCritically low3.5-5.1The [facility] CampusComment on above:Performed By: #### HBSANS #### [facility] [address] [place] [address] Dr. Reagan MoffettProtein [Mass/Vol]8.3 g/dLCritically high6.4-8.2The [facility] CampusComment on above:Performed By: #### HBSANS #### [facility] [address] [place] [address] Dr. Reagan MoffettSodium [Moles/Vol]136 mmol/RKzzsxq561-489Jit [facility] Comment on above:Performed By: #### HBSANS #### [facility] [address] [place] [address] Dr. Reagan MoffettUrea nitrogen [Mass/Vol]10.0 mg/dLNormal7.0-18.0The [facility] CampusComment on above:Performed By: #### HBSANS #### [facility] [address] [place] [address] Dr. Reagan Olguin nitrogen/Creatinine [Mass ratio]16.7 mg/mgNormalThCoshocton Regional Medical CenterComment on above:Performed By: #### HBSANS #### [facility] [address] [place] [address] Dr. Reagan Valenzuela B SURFACE ANTIGEN SCREENon 29-17-9187RKkXp ScreenNegative NormalNegativeThe [facility] CampusComment on above:Performed By: #### HBSANS #### [facility] [address] [place] [address] Dr. Reagan HinesTIS C VIRUS AB W/ REFLEX QUANTon 13-73-4148IHJ AB Non-ReactiveNormalNon ReactiveThe [facility] CampusComment on above:Performed By: #### PREGQNT #### [facility] [address] [place] [address] Dr. Reagan MoffettInterpretation:CommentNoSuburban Community Hospital & [place] HospitalComment on above:Result Comment: Not infected with HCV unless early or acute infection is suspected (which may be delayed in an immunocompromised individual), or other evidence exists to indicate HCV infection.Performed By: #### PREGQNT #### [facility] [address] [place] [address] Dr. Reagan GloriaV 1 AND 2 WITH REFLEXon [id number] Screen 4th Generation wRfxNon-ReactiveNormalNon ReactiveThe [facility] on above:Result Comment: HIV Negative HIV-1/HIV-2 antibodies and HIV-1 p24 antigen were NOT detected. There is no laboratory evidence of HIV infection.Performed By: #### HIV12 #### [facility] [address] [place] [address] Dr. Reagan MoffettRPR QUANTon [id number] Plasma Reagin, QuantNon-Reactive NormalNonRea<1:1[facility] on above:Result Comment: Please Note: This test does not meet current guidelines for screening and diagnosis of syphilis. This test is intended for following treatment response in patients being treated for syphilis infection. To screen for syphilis infection, a reflex cascade that includes both RPR and a treponema-specific assay should be utilized, such as Treponema pallidum (Syphilis) Screening [place] (103977) or Rapid Plasma Reagin (RPR) Test With Reflex to Quantitative RPR and Confirmatory Treponema pallidum Antibodies (698199).Performed By: #### PREGQNT #### [facility] [address] [place] [address] Dr. Reagan Manzano AB IGGon 78-62-6667Rvivrsq Antibodies, IgG2.97 index NormalImmune >0.99The [facility] on above:Result Comment: Non- immune <0.90 Equivocal 0.90 - 0.99 Immune >0.99Performed By: #### PREGQNT #### [facility] [address] [place] [address] Dr. Reagan MoffettBOX TEST SENT OUTon [id number] TO REF [facility]06/10/22[facility] on above:Performed By: #### BOX #### [facility] [address] [place] [address] Dr. Reagan AveryC AUTO DIFFon [id number] #0.0 103/ulNormal0.0-0.1The [facility] HospitalComment on above:Performed By: #### CBC #### [facility] [address] [place] [address] Dr. Reagan MoffettBasophils/100 WBC (Bld)0.4 %Normal0.2-2.0The [facility] Comment on above:Performed By: #### CBC #### [facility] [address] [place] [address] Dr. Reagan Coles #0.1 103/ulNormal0.0-0.7The [facility] CampusComment on above: Performed By: #### CBC #### [facility] [address] [place] [address] Dr. Reagan Connollyosinophils/100 WBC (Bld)0.7 %Critically low0.9-7.0The [facility] CampusComment on above:Performed By: #### CBC #### [facility] [address] [place] [address] Dr. Reagan Connollyrythrocyte distribution width (RBC) [Ratio]11.9 %Vcacjw58.0-15.0 The [facility] CampusComment on above:Performed By: #### CBC #### [facility] [address] [place] [address] Dr. Reagan MoffettHematocrit (Bld) [Volume fraction]38.7 %Qrsxzz13.0-48.0The [facility] CampusComment on above:Performed By: #### CBC #### [facility] [address] [place] [address] Dr. Reagan MoffettHemoglobin (Bld) [Mass/Vol]13.1 g/pQYdptos98.0-16.0The [facility] CampusComment on above:Performed By: #### CBC #### [facility] [address] [place] [address] Dr. Reagan Yun #0.04 10e3/ulCritically high0.00-0.03The [facility] Comment on above:Performed By: #### CBC #### [facility] [address] [place] [address] Dr. Yilan ChangIG %0.4 %Normal0.0-0.5The [facility] CampusComment on above: Performed By: #### CBC #### [facility] [address] [place] [address] Dr. Reagan Ramirez #2.1 103/ulNormal1.2-3.8The [facility] CampusComment on above:Performed By: #### CBC #### [facility] [address] [place] [address] Dr. Reagan Corralhocytes/100 WBC (Bld)21.7 %Rqznmx26.5-60.0The [facility] CampusComment on above:Performed By: #### CBC #### [facility] [address] [place] [address] Dr. Reagan Carrion DIFF REQNONormalThe [facility] CampusComment on above: Performed By: #### CBC #### [facility] [address] [place] [address] Dr. Reagan Duarte (RBC) [Entitic mass]29.9 bpLzqxci72.7-34.0The [facility] CampusComment on above:Performed By: #### CBC #### [facility] [address] [place] [address] Dr. Reagan Christina (RBC) [Mass/Vol]33.9 g/fCShfoao05.9-35.2The [facility] CampusComment on above:Performed By: #### CBC #### [facility] [address] [place] [address] Dr. Reagan Orr (RBC) [Entitic vol]88.4 zYFvcilw12.0-99.0The [facility] CampusComment on above:Performed By: #### CBC #### [facility] [address] [place] [address] Dr. Reagan Richey #0.8 103/ulNormal0.3-0.8The [facility] CampusComment on above:Performed By: #### CBC #### [facility] [address] [place] [address] Dr. Reagan Benjaminocytes/100 WBC (Bld)7.7 %Normal1.7-12.0The [facility] Comment on above:Performed By: #### CBC #### [facility] [address] [place] [address] Dr. Reagan Canseco #6.7 103/ulCritically high1.4-6.5ThCoshocton Regional Medical Center Comment on above:Performed By: #### CBC #### [facility] [address] [place] [address] Dr. Reagan Antonioutrophils/100 WBC (Bld)69.1 %Amexde24.0-75.0The [facility] CampusComment on above:Performed By: #### CBC #### [facility] [address] [place] [address] Dr. Reagan MoffettPlatelet mean volume (Bld) [Entitic vol]9.9 fLNormal9.5-13.5The [facility] CampusComment on above:Performed By: #### CBC #### [facility] [address] [place] [address] Dr. Reagan MoffettPLT297 103/iiGcldub846-336Pjr [facility] CampusComment on above: Performed By: #### CBC #### [facility] [address] [place] [address] Dr. Reagan MoffettRBC4.38 106/ulNormal4.20-5.40The [facility] CampusComment on above:Performed By: #### CBC #### [facility] [address] [place] [address] Dr. Reagan MoffettWBC9.8 103/ulNormal4.0-11.0The [facility] CampusComment on above: Performed By: #### CBC #### [facility] [address] [place] [address] Dr. Reagan MoffettCULTJOEY URINEon [id number] URINECulture Observations: NO GROWTH.NormalThe [facility] CampusComment on above:Performed By: #### HBSANS #### [facility] [address] [place] [address] Dr. Reagan MoffettGLYCOHEMOGLOBIN A1Con [id number] RECOMMENDATIONSEE BELOWNormal The [facility] CampusComforest view hospital on above:Result Comment: ADA RECOMMENDED LIMIT 4.0 - 6.0 ADA THERAPEUTIC TARGET < 7.0 ACTION SUGGESTED > 7.0Performed By: #### PREGQNT #### [facility] [address] [place] [address] Dr. Reagan MoffettGlucose [Mass/Vol]88 mg/dLNoSuburban Community Hospital & Brentwood HospitalComforest view hospital on above:Performed By: #### PREGQNT #### [facility] [address] [place] [address] Dr. Reagan MoffettHbA1c (Bld) [Mass fraction]4.7 %Normal4.5-6.2[facility] on above:Performed By: #### PREGQNT #### [facility] [address] [place] [address] Dr. Reagan MoffettTSHon 97-43-6879VZI5.950 uIU/mLNormal0.358-3.740The [facility] on above:Performed By: #### PREGQNT #### [facility] [address] [place] [address] Dr. Reagan MoffettTYPE AND SCREENon 27-84-8153XNKA AND SCREENNegativeNoSuburban Community Hospital & Brentwood HospitalComforest view hospital on above:Performed By: #### HBSANS #### [facility] [address] [place] [address] Dr. Kirk ChangEBerta URINE PROFILEon 80-03-7573Aauaimqcs Ql (U)NegativeNormal NEGATIVEThe [facility] CampusComforest view hospital on above:Performed By: #### WALDO ERUR #### [facility] [address] [place] [address] Dr. Reagan MoffettClarity (U)CLEARNormalCLEARTrihealth Good Samaritan HospitalComforest view hospital on above: Performed By: #### WALDO ERUR #### [facility] [address] [place] [address] Dr. Reagan Muhammad (U)LT. YELLOWNormalYELLOWThe Angelica HospitalComment on above:Performed By: #### WALDO, ERUR #### [facility] [address] [address] [address] Reagan Nelson micrscopic examination will be performed if indicated. NormalTrihealth Good Samaritan HospitalComment on above:Performed By: #### WALDO, ERUR #### [facility] [address] [address] [address] Reagan MoffettGlucose Ql (U)>1000AbnormalNEGATIVETrihealth Good Samaritan HospitalComment on above:Performed By: #### WALDO, ERUR #### [facility] [address] [address] [address] Reagan MoffettHemoglobin Ql (U)NegativeNormalNEGWadsworth-Rittman Hospital Comment on above:Performed By: #### WALDO, ERUR #### [facility] [address] [address] [address] Reagan MoffettKetones Ql (U)TRACEAbnormalNEGATIVETrihealth Good Samaritan HospitalComment on above:Performed By: #### WALDO ERUR #### [facility] [address] [address] [address] Reagan MoffettLEUKOCYTESTRACEAbnormalNEGATIVETrihealth Good Samaritan HospitalComment on above:Performed By: #### WALDO, ERUR #### [facility] [address] [address] [address] Reagan MoffettNitrite Ql (U)NegativeNormalNEGATIVETrihealth Good Samaritan HospitalComment on above:Performed By: #### WALDO, ERUR #### [facility] [address] [address] [address] Reagan MoffettpH (U)6.0 [pH]Normal5-9Tri[facility] Good Samaritan HospitalComment on above: Performed By: #### WALDO, ERUR #### [facility] [address] [address] [address] Reagan MoffettSPEC GRAVITY>=1.272Nodmwxly0.005-<=1.025[facility] Comment on above:Performed By: #### UMICRO, ERUR #### [facility] [address] [place] [address] Dr. Reagan Cole PROTEINNegativeNormalNEGATIVE/ TRACEThe [facility] Comment on above:Performed By: #### WALDO ERUR #### [facility] [address] [place] [address] Dr. Reagan Delvalle MICRO INDINDICATEDNormalThe [facility] CampusComment on above: Performed By: #### WALDO ERUR #### [facility] [address] [place] [address] Dr. Reagan MoffettUrobilinogen Qn (U)0.2 {Abel'U}/dLNormal0.2 - 1.0The [facility] CampusComment on above:Performed By: #### WALDO ERUR #### [facility] [address] [place] [address] Dr. Reagan MoffettPROF 14(COMP METB)on 11-66-4755Ufmlrfc [Mass/Vol]3.6 g/dLNormal 3.4-5.0The [facility] CampusComment on above:Performed By: #### PREGQNT #### [facility] [address] [place] [address] Dr. Raegan MoffettAlbumin/Globulin [Mass ratio]0.8 {ratio}NormalThe [facility] CampusComment on above:Performed By: #### PREGQNT #### [facility] [address] [place] [address] Dr. Reagan RodriguezP [Catalytic activity/Vol]66 U/VHthfwl76-105Flr [facility] CampusComment on above:Performed By: #### PREGQNT #### [facility] [address] [place] [address] Dr. Reagan RodriguezT [Catalytic activity/Vol]25 U/NTzkvgl42-38Jor [facility] CampusComment on above:Performed By: #### PREGQNT #### [facility] [address] [place] [address] Dr. Reagan Philip gap [Moles/Vol]10.5 mmol/LNormalThe [facility] Comment on above:Performed By: #### PREGQNT #### [facility] [address] [address] [address] Reagan MoffettAST [Catalytic activity/Vol]10 U/LCritically kox58-93Tyc [facility] CampusComment on above:Performed By: #### PREGQNT #### [facility] [address] [address] [address] Reagan MoffettBilirubin [Mass/Vol]0.3 mg/dLNormal0.2-1.0[facility] Comment on above:Performed By: #### PREGQNT #### [facility] [address] [address] [address] Reagan MoffettCalcium [Mass/Vol]9.1 mg/dLNormal8.5-10.1[facility] Comment on above:Performed By: #### PREGQNT #### [facility] [address] [place] [address] Dr. Reagan MoffettChloride [Moles/Vol]103 mmol/IIiwclw99-938XvgTrihealth Good Samaritan Hospital Comment on above:Performed By: #### PREGQNT #### [facility] [address] [place] [address] Dr. Reagan MoffettCO2 [Moles/Vol]26.0 mmol/QEnsfwi93.0-32.0[facility] Comment on above:Performed By: #### PREGQNT #### [facility] [address] [place] [address] Dr. Reagan MoffettCreatinine [Mass/Vol]0.74 mg/dLNormal0.55-1.02The [facility] CampusComment on above:Performed By: #### PREGQNT #### [facility] [address] [place] [address] Dr. Reagan ConnollyGFR-AF FINNISH>60Normal>=60The [facility] CampusComment on above:Performed By: #### PREGQNT #### [facility] [address] [address] [address] Reagan ConnollyGFR-NON AF FINNISH>60Normal>=60The [facility] CampusComment on above:Performed By: #### PREGQNT #### [facility] [address] [place] [address] Dr. Reagan MoffettGlobulin (S) [Mass/Vol]4.4 g/dLNormalThCoshocton Regional Medical CenterComment on above:Performed By: #### PREGQNT #### [facility] [address] [place] [address] Dr. Reagan MoffettGlucose [Mass/Vol]92 mg/tDCqkccy77-204UsfTrihealth Good Samaritan Hospital Comment on above:Performed By: #### PREGQNT #### [facility] [address] [place] [address] Dr. Reagan MoffettPotassium [Moles/Vol]3.5 mmol/LNormal3.5-5.1The [facility] Comment on above:Performed By: #### PREGQNT #### [facility] [address] [place] [address] Dr. Reagan MoffettProtein [Mass/Vol]8.0 g/dLNormal6.4-8.2The [facility] Comment on above:Performed By: #### PREGQNT #### [facility] [address] [place] [address] Dr. Reagan Ceedium [Moles/Vol]136 mmol/LAxozab387-845RkgTrihealth Good Samaritan Hospital Comment on above:Performed By: #### PREGQNT #### [facility] [address] [place] [address] Dr. Reagan MoffettUrea nitrogen [Mass/Vol]9.0 mg/dLNormal7.0-18.0The [facility] CampusComment on above:Performed By: #### PREGQNT #### [facility] [address] [place] [address] Dr. Reagan Olguin nitrogen/Creatinine [Mass ratio]12.2 mg/mgNormalThCoshocton Regional Medical CenterComment on above:Performed By: #### PREGQNT #### [facility] [address] [place] [address] Dr. Reagan López MICROSCOPIC ONLYon [id number] SEENNormalNONE SEENTrihealth Good Samaritan HospitalComforest view hospital on above:Performed By: #### WALOD ERUR #### [facility] [address] [place] [address] Dr. Reagan Dejesus identified Cx Nom (U)NOT INDICATEDOhioHealth Pickerington Methodist HospitalComment on above:Performed By: #### WALDO ERUR #### [facility] [address] [place] [address] Dr. Reagan James SEENNormalNONE SEENTrihealth Good Samaritan HospitalComforest view hospital on above:Performed By: #### WALDO ERUR #### [facility] [address] [place] [address] Dr. Reagan Krishnamurthyystals LM Nom (Urine sed)NONE SEENNormalNONE SEENTrihealth Good Samaritan HospitalComforest view hospital on above:Performed By: #### WALDO ERUR #### [facility] [address] [place] [address] Dr. Kirk ChangEanalithelial cells LM Ql (Urine sed)MODERATEAbnormalNONE SEEN /RARE [facility] HospitalComforest view hospital on above:Performed By: #### WALDO ERUR #### [facility] [address] [place] [address] Dr. Reagna HoltUSTRACEAbnormalNONE SEENTrihealth Good Samaritan HospitalComforest view hospital on above:Performed By: #### WALDO ERUR #### [facility] [address] [place] [address] Dr. Reagan MoffettPhobmVQJ6-6Mvaqppfd1-5Lan Bellevue HospitalComforest view hospital on above:Performed By: #### WALDO ERUR #### [facility] [address] [place] [address] Dr. Reagan MoffettWBC2-5AbnormalNONE SEENCincinnati Shriners Hospital on above: Performed By: #### WALDO ERUR #### [facility] [address] [place] [address] Dr. 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 Gigi Tafoya for a New Patient Fertility Consultation. Adult Risk ScreeningThere are no spiritual/cultural practices/values/needs that are important to know Initial Fall Risk Screening: KEYSHA has not fallen in the last 6 months. KEYSHA does not (more content not included)...NormalUH TouchworksTobacco Screening.on 95-31-1478Dpua risk assessmenta) No falls within the last glxlUF-ZKTWU-Bdtuqz 320 Work Phone: Last menstrual period start [id number] QC-UWAKO-Kafeii 320 Work Phone: Tobacco use status CPHSb) TjCT-BBTRO-Vvctnv 320 Work Phone: PAP ACOG PANEL 2: 21 to 29on 01-17-2022..NormalThe [facility] CampusComment on above:Performed By: #### PREGQNT #### [facility] [address] [address] [address] Reagan Liu Gdln ACOG Kjlxpav84-07ItfwppUnbCleveland Clinic Mentor HospitalComment on above:Performed By: #### PREGQNT #### [facility] [address] [address] [address] Reagan MoffettDIAGNOSIS:CommentNoSuburban Community Hospital & Brentwood HospitalComment on above: Result Comment: NEGATIVE FOR INTRAEPITHELIAL LESION OR MALIGNANCY.Performed By: #### PREGQNT #### [facility] [address] [address] [address] Reagan MoffettMethodology:CommentNoSuburban Community Hospital & Brentwood HospitalComment on above: Result Comment: This liquid based ThinPrep(R) pap test was screened with the use of an image guided system.Performed By: #### PREGQNT #### [address] [address] [address] Reagan MoffettNote:CommentMary Rutan Hospital on above:Result Comment: The Pap smear is a screening test designed to aid in the detection of premalignant and malignant conditions of the uterine cervix. It is not a diagnostic procedure and should not be used as the sole means of detecting cervical cancer. Both false-positive and false-negative reports do occur. .Performed By: #### PREGQNT #### [facility] [address] [place] [address] Dr. Reagan MoffettPerformed by:CommentMary Rutan Hospital on above: Result Comment: Fredy Boyer Carriage Dogger (ASCP)Performed By: #### PREGQNT #### [address] [address] [address] Reagan MoffettReflex Criteria:CommentMary Rutan Hospital on above:Result Comment: The HPV DNA reflex criteria were not met with this specimen result therefore, no HPV testing was performed. .Performed By: #### PREGQNT #### [address] [address] [address] Reagan MoffettSpecimen adequacy:CommentMary Rutan Hospital on above:Result Comment: Satisfactory for evaluation. Endocervical and/or squamous metaplastic cells (endocervical component) are present.Performed By: #### PREGQNT #### [facility] [address] [place] [address] Dr. Reagan MoffettHCG,Quantitativeon [id number],Quantitative1.64 m[iU]/[facility] & Brentwood HospitalComment on above:Result Comment: Approximate Approximate hCG Gestational Age Range (mIU/ml) (weeks) 0.2-1 5-50 1-2 50-500 2-3 100-5,000 3-4 500-10,000 4-5 1,000-50,000 5-6 10,000-100,000 6-8 15,000-200,000 8-12 10,000-100,000 PERFORMED BY: [place] [address] PATHOLOGIST PATTERN MAKER PROGRAMER DONAL GRIMES M.D.Performed By: #### HCGQNT #### [address] [address] USASerum or plasma beta choriogonadotropin measurement (units/volume)Ordered By: Gigi Tafoya on 16-87-2720TEO.beta subunit Qn1.64 m[IU]/mLSt. Rita'S HospitalComment on above:Approximate Approximate hCG Gestational Age Range (mIU/ml) (weeks) 0.2-1 5-50 1-2 50-500 2-3 100-5,000 3-4 500-10,000 4-5 1,000-50,000 5-6 10,000-100,000 6-8 15,000-200,000 8-12 10,000-100,000 Bacteria identified Aer cx Nom (Unsp spec)Ordered By: Vandana Zhao on [id number] Wound CultureStaphylococcus aureusSt. Rita'S HospitalHCG,Quantitativeon [id number],Quantitative7.29 m[iU]/mLNormal St. Rita'S HospitalComment on above:Result Comment: Approximate Approximate hCG Gestational Age Range (mIU/ml) (weeks) 0.2-1 5-50 1-2 50-500 2-3 100-5,000 3-4 500-10,000 4-5 1,000-50,000 5-6 10,000-100,000 6-8 15,000-200,000 8-12 10,000-100,000 PERFORMED BY: [address] [address] PATHOLOGIST PATTERN MAKER PROGRAMER DONAL GRIMES M.D.Performed By: #### HCGQNT #### [facility] [address] [place] [id number] USASerum or plasma beta choriogonadotropin measurement (units/volume)Ordered By: Gigi Tafoya on [id number].beta subunit Qn7.29 m[IU]/mLSt. Rita'S HospitalComment on above:Approximate Approximate hCG Gestational Age Range (mIU/ml) (weeks) 0.2-1 5-50 1-2 50-500 2-3 100-5,000 3-4 500-10,000 4-5 1,000-50,000 5-6 10,000-100,000 6-8 15,000-200,000 8-12 10,000-100,000 Superficial Wound Cultureon [id number] Wound CultureORGANISM: Staphylococcus aureus (O:STAAUR) Quantity of [...] RESISTANT TO ALL B-LACTAM DRUGS. PERFORMED BY: [facility] [address] [place] [address] PATHOLOGIST PATTERN MAKER PROGRAMER DONAL GRIMES M.D.[facility]cyrus Community HospitalComment on above: Performed By: #### CUSUP #### [facility] [address] [place] [address] USAHCG,Quantitativeon [id number],Uffiduqpjyks89.06 m[iU]/mLNormalSt. Rita'S HospitalComment on above:Result Comment: Approximate Approximate hCG Gestational Age Range (mIU/ml) (weeks) 0.2-1 5-50 1-2 50-500 2-3 100-5,000 3-4 500-10,000 4-5 1,000-50,000 5-6 10,000-100,000 6-8 15,000-200,000 8-12 10,000-100,000 PERFORMED BY: [place] [address] PATHOLOGIST PATTERN MAKER PROGRAMER DONAL GRIMES M.D.Performed By: #### TSH3, HCGQNT #### [place] [id number] USASerum or plasma beta choriogonadotropin measurement (units/volume)Ordered By: Gigi Tafoya on 80-09-3488DQP.beta subunit Qn56.06 m[IU]/mLSt. Rita'S HospitalComment on above:Approximate Approximate hCG Gestational Age Range (mIU/ml) (weeks) 0.2-1 5-50 1-2 50-500 2-3 100-5,000 3-4 500-10,000 4-5 1,000-50,000 5-6 10,000-100,000 6-8 15,000-200,000 8-12 10,000-100,000 TSH DL <= 0.005 mIU/L QnOrdered By: Gigi Tafoya on 33-92-4085DYJ Qn10.30 m[IU]/L 0.45-5.33St. [facility]S HospitalThyroid Stimulating Hormoneon 37-92-2749XPJ Qn10.30 m[IU]/LHigh0.45-5.33[facility] Comment on above:Performed By: #### TSH3, HCGQNT #### [place] [id number] USACBC AUTO DIFFon [id number] #0.0 103/ulNormal0.0-0.1The [facility] CampusComment on above:Performed By: #### CBC #### [facility] [address] [place] [address] Dr. Reagan MoffettBasophils/100 WBC (Bld)0.4 %Normal0.2-2.0The [facility] Comment on above:Performed By: #### CBC #### [facility] [address] [place] [address] Dr. Reagan Coles #0.1 103/ulNormal0.0-0.7The [facility] CampusComment on above: Performed By: #### CBC #### [facility] [address] [place] [address] Dr. Reagan Connollyosinophils/100 WBC (Bld)1.2 %Normal0.9-7.0The [facility] Comment on above:Performed By: #### CBC #### [facility] [address] [place] [address] Dr. Reagan Connollyrythrocyte distribution width (RBC) [Ratio]12.2 %Bqqfhj89.0-15.0 The [facility] CampusComment on above:Performed By: #### CBC #### [facility] [address] [place] [address] Dr. Reagan MoffettHematocrit (Bld) [Volume fraction]40.1 %Ktapqq00.0-48.0The [facility] CampusComment on above:Performed By: #### CBC #### [facility] [address] [place] [address] Dr. Reagan MoffettHemoglobin (Bld) [Mass/Vol]13.4 g/nJMdspvt10.0-16.0The [facility] CampusComment on above:Performed By: #### CBC #### [facility] [address] [place] [address] Dr. Reagan Yun #0.03 10e3/ulNormal0.00-0.03The [facility] CampusComment on above:Performed By: #### CBC #### [facility] [address] [place] [address] [address] Reagan Yun %0.3 %Normal0.0-0.5The [facility] CampusComment on above: Performed By: #### CBC #### [facility] [address] [place] [address] Dr. Reagan Ramirez #2.7 103/ulNormal1.2-3.8The [facility] CampusComment on above:Performed By: #### CBC #### [facility] [address] [place] [address] Dr. Reagan Corralhocytes/100 WBC (Bld)26.2 %Bldiso98.5-60.0The [facility] CampusComforest view hospital on above:Performed By: #### CBC #### [facility] [address] [place] [address] Dr. Reagan uNllUAL DIFF REQNONormalThe [facility] CampusComment on above: Performed By: #### CBC #### [facility] [address] [place] [address] Dr. Reagan Christina (RBC) [Entitic mass]28.9 wlSoxmnu83.7-34.0The [facility] CampusComment on above:Performed By: #### CBC #### [facility] [address] [place] [address] Dr. Reagan Christina (RBC) [Mass/Vol]33.4 g/uVKmzzbi99.9-35.2The [facility] CampusComforest view hospital on above:Performed By: #### CBC #### [facility] [address] [place] [address] Dr. Reagan Christina (RBC) [Entitic vol]86.6 eMExwwmc96.0-99.0The [facility] CampusComment on above:Performed By: #### CBC #### [facility] [address] [place] [address] Dr. Reagan Richey #0.8 103/ulNormal0.3-0.8The [facility] CampusComment on above:Performed By: #### CBC #### [facility] [address] [place] [address] Dr. Reagan Benjaminocytes/100 WBC (Bld)7.7 %Normal1.7-12.0The [facility] Comment on above:Performed By: #### CBC #### [facility] [address] [place] [address] Dr. Reagan AntonioUT #6.7 103/ulCritically high1.4-6.5The [facility] Comment on above:Performed By: #### CBC #### [facility] [address] [place] [address] Dr. Reagan Antonioutrophils/100 WBC (Bld)64.2 %Hffcia25.0-75.0The [facility] CampusComment on above:Performed By: #### CBC #### [facility] [address] [place] [address] Dr. Reagan Boatenglet mean volume (Bld) [Entitic vol]9.9 fLNormal9.5-13.5The [facility] CampusComment on above:Performed By: #### CBC #### [facility] [address] [place] [address] Dr. Reagan MoffettPLT270 103/yrEfjjym672-251Xyh [facility] CampusComment on above: Performed By: #### CBC #### [facility] [address] [place] [address] Dr. Reagan MoffettRBC4.63 106/ulNormal4.20-5.40The [facility] CampusComment on above:Performed By: #### CBC #### [facility] [address] [place] [address] Dr. Reagan MoffettWBC10.4 103/ulNormal4.0-11.0The [facility] CampusComment on above:Performed By: #### CBC #### [facility] [address] [place] [address] Dr. Reagan Garcia 14(COMP METB)on 75-24-5746Ycwesza [Mass/Vol]4.0 g/dLNormal 3.4-5.0The [facility] CampusComment on above:Performed By: #### PREGQNT #### [facility] [address] [place] [address] [address] Reagan MoffettAlbumin/Globulin [Mass ratio]1.1 {ratio}NormalThe [facility] West CampusComment on above:Performed By: #### PREGQNT #### [facility] [address] [place] [address] [address] Reagan RodriguezP [Catalytic activity/Vol]72 U/ENvynwl65-597Ceq [facility] CampusComment on above:Performed By: #### PREGQNT #### [facility] [address] [place] [address] [address] Reagan RodriguezT [Catalytic activity/Vol]14 U/JBtwlyi13-60Lem [facility] CampusComment on above:Performed By: #### PREGQNT #### [facility] [address] [place] [address] [address] Reagan Leonon gap [Moles/Vol]12.8 mmol/LNormalThe [facility] Comment on above:Performed By: #### PREGQNT #### [facility] [address] [address] [address] Reagan MoffettAST [Catalytic activity/Vol]10 U/LCritically twf23-62Lte [facility] CampusComment on above:Performed By: #### PREGQNT #### [facility] [address] [address] [address] Reagan MoffettBilirubin [Mass/Vol]0.3 mg/dLNormal0.2-1.0The [facility] Comment on above:Performed By: #### PREGQNT #### [facility] [address] [address] [address] Reagan MoffettCalcium [Mass/Vol]9.2 mg/dLNormal8.5-10.1The [facility] Comment on above:Performed By: #### PREGQNT #### [facility] [address] [address] [address] Reagan MoffettChloride [Moles/Vol]105 mmol/YQzonjo24-809Tvz [facility] Comment on above:Performed By: #### PREGQNT #### [facility] [address] [address] [address] Reagan MoffettCO2 [Moles/Vol]26.8 mmol/MVymjdk57.0-32.0The [facility] Comment on above:Performed By: #### PREGQNT #### [facility] [address] [address] [address] Reagan MoffettCreatinine [Mass/Vol]0.69 mg/dLNormal0.55-1.02[facility]itan HospitalComment on above:Performed By: #### PREGQNT #### [facility] [address] [place] [address] [address] Kirk ChangEGFR-AF FINNISH>60Normal>=60The [facility] CampusComment on above:Performed By: #### PREGQNT #### [facility] [address] [place] [address] [address] Reagan ConnollyGFR-NON AF FINNISH>60Normal>=60The [facility] CampusComment on above:Performed By: #### PREGQNT #### [facility] [address] [address] [address] Reagan MoffettGlobulin (S) [Mass/Vol]3.6 g/dLNormalThe [facility] CampusComment on above:Performed By: #### PREGQNT #### [facility] [address] [address] [address] Reagan MoffettGlucose [Mass/Vol]95 mg/jZWukyiy50-842Tgy [facility] Comment on above:Performed By: #### PREGQNT #### [facility] [address] [address] [address] Reagan MoffettPotassium [Moles/Vol]3.6 mmol/LNormal3.5-5.1The [facility] Comment on above:Performed By: #### PREGQNT #### [facility] [address] [address] [address] Reagan MoffettProtein [Mass/Vol]7.6 g/dLNormal6.4-8.2The [facility] Comment on above:Performed By: #### PREGQNT #### [facility] [address] [place] [address] Dr. Reagan Estrellaum [Moles/Vol]141 mmol/DOfunyx096-192ZbbTrihealth Good Samaritan Hospital Comment on above:Performed By: #### PREGQNT #### [facility] [address] [place] [address] Dr. Reagan MoffettUrea nitrogen [Mass/Vol]12.0 mg/dLNormal7.0-18.0[facility] HospitalComment on above:Performed By: #### PREGQNT #### [facility] [address] [place] [address] Dr. Reagan Olguin nitrogen/Creatinine [Mass ratio]17.4 mg/mgNoSuburban Community Hospital & Brentwood HospitalComment on above:Performed By: #### PREGQNT #### [facility] [address] [place] [address] Dr. Reagan Contreras 20-65-3936CMB Coag (PPP) [Relative time]0.99 {INR} NormalTrihealth Good Samaritan HospitalComment on above:Performed By: #### HBSANS #### [facility] [address] [place] [address] Dr. Reagan Sanchez GUIDELINESSEE BELOWOhioHealth Pickerington Methodist HospitalComment on above:Result Comment: DESIRED INR: 2.0 - 3.0 CONDITIONS NOT LISTED BELOW 2.5 - 3.5 FOR PROSTHETIC HEART VALVE REPLACEMENT 2.5 - 3.5 RECURRENT THROMBOSIS Performed By: #### HBSANS #### [facility] [address] [place] [address] Dr. Reagan Frias Coag (PPP) [Time]10.7 sNormal9.0-11.6The [facility] Comment on above:Performed By: #### HBSANS #### [facility] [address] [place] [address] Dr. Reagan Sen 67-31-0463aYZM Coag (Bld) [Time]27.1 qHvyxij59.3-36.2[facility] HospitalComment on above:Performed By: #### HBSANS #### [facility] [address] [address] [address] Reagan Sawyer AND SCREENon 60-67-3745MKAN AND SCREENNegativeNoSuburban Community Hospital & Brentwood HospitalComment on above:Performed By: #### TNS #### [facility] [address] [address] [address] Reagan Perkins PREG TVon [id number] PREG TVEXAM: US PREG TV CLINICAL HISTORY: [...] Electronically authenticated by: ERNST PALACIO Date: 2021-10-03 21:40NoSuburban Community Hospital & Brentwood HospitalABO AND RH TYPEon [id number] and Rh group Nom (Bld)ABO Rh Typing B Rh PositiveNoSuburban Community Hospital & Brentwood HospitalComment on above:Performed By: #### HBSANS #### [facility] [address] [place] [address] Dr. Reagan MoffettCBC AUTO DIFFon [id number] #0.0 103/ulNormal0.0-0.1The [facility] CampusComment on above:Performed By: #### CBC #### [facility] [address] [address] [address] Reagan MoffettBasophils/100 WBC (Bld)0.4 %Normal0.2-2.0The [facility] Comment on above:Performed By: #### CBC #### [facility] [address] [place] [address] Dr. Reagan Coles #0.1 103/ulNormal0.0-0.7The [facility] CampusComment on above: Performed By: #### CBC #### [facility] [address] [place] [address] Dr. Reagan Connollyosinophils/100 WBC (Bld)0.6 %Critically low0.9-7.0The [facility] CampusComment on above:Performed By: #### CBC #### [facility] [address] [place] [address] Dr. Reagan Connollyrythrocyte distribution width (RBC) [Ratio]11.9 %Yqlkqe79.0-15.0 The [facility] CampusComment on above:Performed By: #### CBC #### [facility] [address] [place] [address] Dr. Reagan MoffettHematocrit (Bld) [Volume fraction]37.8 %Qewfrl37.0-48.0The [facility] CampusComment on above:Performed By: #### CBC #### [facility] [address] [place] [address] Dr. Reagan MoffettHemoglobin (Bld) [Mass/Vol]12.8 g/zWTlnjak40.0-16.0The [facility] CampusComment on above:Performed By: #### CBC #### [facility] [address] [place] [address] Dr. Reagan Yun #0.01 10e3/ulNormal0.00-0.03The [facility] CampusComment on above:Performed By: #### CBC #### [facility] [address] [place] [address] Dr. Reagan Yun %0.1 %Normal0.0-0.5The [facility] CampusComment on above: Performed By: #### CBC #### [facility] [address] [place] [address] Dr. Reagan Ramirez #2.0 103/ulNormal1.2-3.8The [facility] CampusComment on above:Performed By: #### CBC #### [facility] [address] [place] [address] Dr. Reagan Robertsmphocytes/100 WBC (Bld)24.4 %Rmkqss58.5-60.0The [facility] CampusComment on above:Performed By: #### CBC #### [facility] [address] [place] [address] Dr. Reagan Carrion DIFF REQNONormalThe [facility] CampusComment on above: Performed By: #### CBC #### [facility] [address] [place] [address] Dr. Reagan Christina (RBC) [Entitic mass]29.2 faPwyyvy98.7-34.0The [facility] CampusComment on above:Performed By: #### CBC #### [facility] [address] [place] [address] Dr. Reagan Christina (RBC) [Mass/Vol]33.9 g/sRMghwlf02.9-35.2The [facility] CampusComment on above:Performed By: #### CBC #### [facility] [address] [place] [address] Dr. Reagan Orr (RBC) [Entitic vol]86.3 wAUjqyjc10.0-99.0The [facility] CampusComment on above:Performed By: #### CBC #### [facility] [address] [place] [address] Dr. Reagan Richey #0.7 103/ulNormal0.3-0.8The [facility] CampusComment on above:Performed By: #### CBC #### [facility] [address] [place] [address] Dr. Reagan Benjaminocytes/100 WBC (Bld)9.1 %Normal1.7-12.0[facility] on above:Performed By: #### CBC #### [facility] [address] [place] [address] Dr. Reagan Canseco #5.3 103/ulNormal1.4-6.5The [facility] CampusComment on above:Performed By: #### CBC #### [facility] [address] [place] [address] Dr. Reagan Antonioutrophils/100 WBC (Bld)65.4 %Eiityc22.0-75.0The [facility] CampusComment on above:Performed By: #### CBC #### [facility] [address] [place] [address] Dr. Reagan Gregory mean volume (Bld) [Entitic vol]9.9 fLNormal9.5-13.5The [facility] CampusComment on above:Performed By: #### CBC #### [facility] [address] [place] [address] Dr. Reagan MoffettPLT280 103/nbEforfw177-586Tbm [facility] CampusComment on above: Performed By: #### CBC #### [facility] [address] [place] [address] Dr. Reagan MoffettRBC4.38 106/ulNormal4.20-5.40The [facility] CampusComment on above:Performed By: #### CBC #### [facility] [address] [place] [address] Dr. Reagan MoffettWBC8.1 103/ulNormal4.0-11.0The [facility] CampusComforest view hospital on above: Performed By: #### CBC #### [facility] [address] [place] [address] Dr. Kirk ChangEBerta URINE PROFILEon 12-52-5658Qkgkfjraw Ql (U)NegativeNormal NEGATIVEThe [facility] West CampusComment on above:Performed By: #### PREGQNT #### [facility] [address] [place] [address] Dr. Reagan Martínez (U)CLEARNormalCLEARThe [facility] CampusComment on above: Performed By: #### PREGQNT #### [facility] [address] [place] [address] Dr. Reagan Muhammad (U)LT. YELLOWNormalYELLOWThe [facility] CampusComment on above:Performed By: #### PREGQNT #### [facility] [address] [address] [address] Reagan Nelson micrscopic examination will be performed if indicated. NormalTrihealth Good Samaritan HospitalComment on above:Performed By: #### PREGQNT #### [facility] [address] [address] [address] Reagna MoffettGlucose Ql (U)NegativeNormalNEGATIVETrihealth Good Samaritan HospitalComment on above:Performed By: #### PREGQNT #### [facility] [address] [address] [address] Reagan MoffettHemoglobin Ql (U)LARGEAbnormalNEGWadsworth-Rittman Hospital Comment on above:Performed By: #### PREGQNT #### [facility] [address] [place] [address] Dr. Reagan MoffettKetones Ql (U)NegativeNormalNEGATIVETrihealth Good Samaritan HospitalComment on above:Performed By: #### PREGQNT #### [facility] [address] [address] [address] Reagan MoffettLEUKOCYTESNegativeNormalNEGWadsworth-Rittman HospitalComforest view hospital on above:Performed By: #### PREGQNT #### [facility] [address] [address] [address] Reagan MoffettNitrite Ql (U)NegativeNormalNEGATIVETrihealth Good Samaritan HospitalComment on above:Performed By: #### PREGQNT #### [facility] [address] [address] [address] Reagan MoffettpH (U)6.0 [pH]Normal5-9[facility] Samaritan HospitalComment on above: Performed By: #### PREGQNT #### [facility] [address] [address] [address] Reagan MoffettSPEC GRAVITY>=1.906Kfmvyxvt3.005-<=1.025[facility] Comment on above:Performed By: #### PREGQNT #### [facility] [address] [address] [address] Reagan oCle PROTEINNegativeNormalNEGATIVE/ TRACETrihealth Good Samaritan Hospital Comment on above:Performed By: #### PREGQNT #### [facility] [address] [place] [address] Dr. Reagan Delvalle MICRO INDINDICATEDOhioHealth Pickerington Methodist HospitalComment on above: Performed By: #### PREGQNT #### [facility] [address] [place] [address] Dr. Reagan Salvador Qn (U)0.2 {Abel'U}/dLNormal0.2 - 1.0[facility] Samaritan HospitalComment on above:Performed By: #### PREGQNT #### [facility] [address] [place] [address] Dr. Reagan Yeboah,Quantitativeon 31-21-0751VXJ,Blsnuqixlnat2173.00 m[iU]/mL [facility] HospitalComment on above:Result Comment: Approximate Approximate hCG Gestational Age Range (mIU/ml) (weeks) 0.2-1 5-50 1-2 50-500 2-3 100-5,000 3-4 500-10,000 4-5 1,000-50,000 5-6 10,000-100,000 6-8 15,000-200,000 8-12 10,000-100,000 PERFORMED BY: [place] [address] PATHOLOGIST PATTERN MAKER PROGRAMER DONAL GRIMES M.D.Performed By: #### HCGQNT #### [place] [address] USAPREG QUANT HCGon [id number] WMIXV4053 mIU/mLNormalTrihealth Good Samaritan HospitalComment on above:Performed By: #### PREGQNT #### [facility] [address] [place] [address] Dr. Reagan Yeboah RANGESEE BELOWOhioHealth Pickerington Methodist HospitalComment on above: Result Comment: 5-50 0.2-1 WEEK 50-500 1-2 WEEKS 100-5,000 2-3 WEEKS 500-10,000 3-4 WEEKS 1,000-50,000 4-5 WEEKS 10,000-100,000 5-6 WEEKS 15,000-200,000 6-8 WEEKS 10,000-100,000 2-3 MONTHSPerformed By: #### PREGQNT #### [facility] [address] [address] [address] Reagan Bunch Comment: TEST PERFORMED AT: [facility] [address] [place], [place] [address] plasma beta choriogonadotropin measurement (units/volume)Ordered By: Radha Jensen on 66-48-5528VNC.beta subunit At7942.00 m[IU]/mLSt. Rita'S Hospital Comment on above:Approximate Approximate hCG Gestational Age Range (mIU/ml) (weeks) 0.2-1 5-50 1-2 50-500 2-3 100-5,000 3-4 500-10,000 4-5 1,000-50,000 5-6 10,000-100,000 6-8 15,000-200,000 8-12 10,000-100,000 URINE MICROSCOPIC ONLYon [id number]L SEENThe [facility] CampusComment on above:Performed By: #### PREGQNT #### [facility] [address] [place] [address] Dr. Reagan Dejesus identified Cx Nom (U)NOT INDICATEDNoSuburban Community Hospital & Brentwood HospitalComment on above:Performed By: #### PREGQNT #### [facility] [address] [address] [address] Reagan James SEENNormalNONE SEENTrihealth Good Samaritan HospitalComment on above:Performed By: #### PREGQNT #### [facility] [address] [place] [address] Dr. Reagan Haile LM Nom (Urine sed)NONE SEENNormalNONE SEENTrihealth Good Samaritan HospitalComforest view hospital on above:Performed By: #### PREGQNT #### [facility] [address] [place] [address] Dr. Kirk ChangEpithelial cells LM Ql (Urine sed)FEWAbnormalNONE SEEN /RAREThe [facility] CampusComment on above:Performed By: #### PREGQNT #### [facility] [address] [place] [address] Dr. Reagan LionCOUSTRACEAbnormalNONE SEENTrihealth Good Samaritan HospitalComment on above:Performed By: #### PREGQNT #### [facility] [address] [place] [address] Dr. Reagan MoffettWzxckJNZ95-43Swwkbctu8-8Yjz [facility] CampusComment on above: Performed By: #### PREGQNT #### [facility] [address] [place] [address] Dr. Reagan MoffettWBC0-2AbnormalNONMya SEENThe [facility] CampusComment on above: Performed By: #### PREGQNT #### [facility] [address] [place] [address] Dr. Reagan Perkins PREG TVon [id number] PREG TVEXAMINATION: US PREG TV HISTORY: Vaginal [...] Electronically authenticated by: TRI BERRIOS Date: 2021-09-28 18:50NormCleveland Clinic Mentor HospitalHCG,Quantitativeon 25-62-6539ZUV,Olmppqgixaye4165.00 m[iU]/mL [facility] HospitalComment on above:Result Comment: Approximate Approximate hCG Gestational Age Range (mIU/ml) (weeks) 0.2-1 5-50 1-2 50-500 2-3 100-5,000 3-4 500-10,000 4-5 1,000-50,000 5-6 10,000-100,000 6-8 15,000-200,000 8-12 10,000-100,000 PERFORMED BY: [facility] [address] [place] [address] PATHOLOGIST PATTERN MAKER PROGRAMER DONAL GRIMES M.D.Performed By: #### HCGQNT #### [facility] [address] [place] [address] USASerum or plasma beta choriogonadotropin measurement (units/volume)Ordered By: Chen Lucia on 48-18-9787UMF.beta subunit Ba5098.00 m[IU]/mLSt. Rita'S HospitalComment on above:Approximate Approximate hCG Gestational Age Range (mIU/ml) (weeks) 0.2-1 5-50 1-2 50-500 2-3 100-5,000 3-4 500-10,000 4-5 1,000-50,000 5-6 10,000-100,000 6-8 15,000-200,000 8-12 10,000-100,000 CHEMISTRYOrdered By: SYSTEM SYSTEM on 93-14-9509Olcunze [Mass/Vol]4.6 g/dLNormal 3.3 - 5.0 gm/dLFTMC RemisolAlbumin/Globulin [Mass ratio]1.4 {ratio}Normal1.1 - 2.2[facility] RemisolALP [Catalytic activity/Vol]55 [iU]/sKcbmfv02 - 98 Int._Unit/L [facility] RemisolALT No additional P-5'-P [Catalytic activity/Vol]14 [iU]/dNormal6 - 46 Int._Unit/LFTMC RemisolAnion gap [Moles/Vol]10 mmol/LNormal6 - 16 mEq/LFTMC RemisolAST [Catalytic activity/Vol]14 [iU]/dNormal5 - 43 Int._Unit/LFTMC Remisol Bilirubin [Mass/Vol]0.8 mg/dLNormal0.0 - 1.1 mg/dLFTMC RemisolCalcium [Mass/Vol] 9.7 mg/dLNormal8.9 - 11.1 mg/dLFTMC RemisolChloride [Moles/Vol]102 mmol/LNormal 101 - 111 mmol/LFTMC RemisolCO2 [Moles/Vol]27 mmol/UHbgpfc78 - 31 mmol/LFTMC RemisolCreatinine [Mass/Vol]0.6 mg/dLNormal0.5 - 1.3 mg/dLFTMC RemisolGFR/1.73 sq M.predicted among blacks MDRD (S/P/Bld) [Vol rate/Area]mL/min/1.73 u3Aqhnrv >=59mL/min/1.73 m2[facility] Chem SGFR/1.73 sq M.predicted among non-blacks MDRD (S/P/Bld) [Vol rate/Area]mL/min/1.73 p8Ieeemm>=59mL/min/1.73 m2[facility] Chem S Globulin (S) [Mass/Vol]3.2 g/dLNormal1.4 - 4.0 gm/dLFTMC RemisolGlucose [Mass/Vol]89 mg/qVEpurzv06 - 199 mg/dLFTMC RemisolHCG.beta subunit Gz2005 m[IU]/mLHigh1 - 3 mIU/mLFTMC RemisolPotassium [Moles/Vol]3.8 mmol/LNormal3.5 - 5.3 mmol/LFTMC RemisolProtein [Mass/Vol]7.8 g/dLNormal6.0 - 7.8 gm/dLFTMC RemisolSodium [Moles/Vol]135 mmol/HNunyec577 - 145 mmol/LFTMC RemisolUrea nitrogen [Mass/Vol]12 mg/dLNormal5 - 21 mg/dLFTMC RemisolUrea nitrogen/Creatinine [Mass ratio]20 mg/pxYdgjnu14 - 20FT[facility] RemisolHEMATOLOGY Ordered By: SYSTEM SYSTEM on 25-34-2224Keyohqjfv/100 WBC (Bld)0.6 %Normal0.0 - 2.0 %[facility] HemeAutoSSBasophils/Leukocytes Auto (Bld) [Pure # fraction]0.0 E9/L Normal0.0 - 0.2 E9/LFTMC HemeAutoSSEosinophils/100 WBC (Bld)0.6 %Normal0.0 - 8.0 %[facility] HemeAutoSSEosinophils/Leukocytes Auto (Bld) [Pure # fraction]0.0 E9/L Normal0.0 - 0.5 E9/LFTMC HemeAutoSSLymphocytes/100 WBC (Bld)33.0 %Qisuhn51.0 - 50.0 %[facility] HemeAutoSSLymphocytes/Leukocytes Auto (Bld) [Pure # fraction]2.0 E9/L Normal1.0 - 4.0 E9/LFTMC HemeAutoSSMonocytes/100 WBC (Bld)10.6 %Normal4.0 - 14.0 %[facility] HemeAutoSSMonocytes/Leukocytes Auto (Bld) [Pure # fraction]0.6 E9/LNormal 0.2 - 1.0 E9/LFTMC HemeAutoSSNeutrophils/100 WBC (Bld)55.2 %Zmyezh98.0 - 75.0 % [facility] HemeAutoSSNeutrophils/Leukocytes Auto (Bld) [Pure # fraction]3.3 E9/LNormal 2.0 - 7.5 E9/LFTMC HemeAutoSSHEMATOLOGYOrdered By: Winter Cedillo on 09-22-2021 Erythrocyte distribution width (RBC) [Ratio]12.3 %Trsvss43.9 - 14.2 %[facility] HemeAutoSSHematocrit (Bld) [Volume fraction]40.0 %Gquirb03.0 - 46.0 %[facility] HemeAutoSSHemoglobin (Bld) [Mass/Vol]13.7 g/jMFrdbrh75.0 - 16.0 gm/dLFTMC HemeAutoSSMCH (RBC) [Entitic mass]29.4 xuGdzmwk19.0 - 34.0 pgFTMC HemeAutoSSMCHC (RBC) [Mass/Vol]34.3 g/kOStvzzs65.4 - 36.0 gm/dLFTMC HemeAutoSSMCV (RBC) [Entitic vol]85.8 pAIypfqd23.0 - 100.0 fLFTMC HemeAutoSSPlatelet mean volume (Bld) [Entitic vol]8.9 fLNormal6.4 - 10.8 fLFTMC HemeAutoSSPlatelets (Bld) [#/Vol]296.0 E9/CObwckw628.0 - 500.0 E9/[facility] HemeAutoSSRBC (Bld) [#/Vol]4.7 E12/LNormal4.3 - 5.9 E12/[facility] HemeAutoSSWBC corrected for nucl RBC Auto (Bld) [#/Vol]6.0 E9/LNormal4.0 - 11.0 /[facility] HemeAutoSSSEROLOGYOrdered By: Abby Case on 16-67-2400Jybo hCG QlPositive (09/22/21 10:50 AM)NormalNORMAN [facility] Man SeroURINALYSISOrdered By: Abby Case on 11-23-1413Naabbhmnv Ql (U)Negative (09/22/21 10:50 AM)NormalNegativeNORMAN [facility] [place] UA Auto SSClarity (U)Clear (09/22/21 10:50 AM)NormalClearFGREAT PLAINS [facility] [place] UA Auto SSColor (U)Yellow (09/22/21 10:50 AM)NormalYellowNORMAN REGIONAL [facility]OS[facility] [place] UA Auto SSCrystals LM Ql (Urine sed)Present (09/22/21 10:50 AM)NormalNORMAN REGIONAL [facility] [place] UA Auto SSEpithelial cells.squamous LM.HPF (Urine sed) [#/Area]0-2 /HPFNormal0-2/HPFNORMAN REGIONAL [facility] [place] UA Auto SSGlucose Test strip (U) [Mass/Vol]Negative (09/22/21 10:50 AM)NormalNegativeNORMAN REGION[facility] [place] UA Auto SSHemoglobin Ql (U)2+ *ABN* (09/22/21 10:50 AM)Invalid Interpretation CodeNegativeNORMAN [facility] UA Auto SSKetones (U) [Mass/Vol]Negative (09/22/21 10:50 AM)NormalNegativeNORMAN [facility]ION[facility] [place] UA Auto SSLithium.plasma/[place].RBC (Bld) [Mass ratio]0-3 /HPFNormal0-3/HPFNORMAN REGIONAL [facility] [place] UA Auto SSMucus Ql (Urine sed)2+ (09/22/21 10:50 AM)NormalNORMAN REGIONAL [facility] [place] UA Auto SSNitrite Ql (U)Negative (09/22/21 10:50 AM)NormalNegativeNORMAN [facility] UA Auto SSpH (U)6.0 *NA* (09/22/21 10:50 AM)Invalid Interpretation Code5.0 - 9.0[facility] UA Auto SSProtein (U) [Mass/Vol]Negative (09/22/21 10:50 AM)NormalNegativeNORMAN REGION[facility] [place] UA Auto SSSpecific gravity (U) [Rel density]1.025 *NA* (09/22/21 10:50 AM)Invalid Interpretation Code1.005 - 1.030[facility] UA Auto SSUA Spec DescClean Catch (09/22/21 10:50 AM)NormalNORMAN REGIONAL [facility] [place] UA Auto SSUrobilinogen Qn (U)0.3008633 {Abel'U}/dLNormal0.0 - 1.0 EU/dLNORMAN REGIONAL [facility] [place] UA Auto SSWBC Auto Ql (U)Negative (09/22/21 10:50 AM)NormalNegativeNORMAN [facility] UA Auto SSWBC LM.HPF (Urine sed) [#/Area]0- 5 /HPFNormal0-5/HPFNORMAN REGIONAL [facility] [place] UA Auto SSProgesteroneon 14-22-3773Vetfiyonknhk74.9 ng/mLNormal.St. Rita'S HospitalComment on above:Result Comment: Follicular phase 0.1 - 0.9 Luteal phase 1.8 - 23.9 Ovulation phase 0.1 - 12.0 First trimester 11.0 - 44.3 Second trimester 25.4 - 83.3 Third trimester 58.7 - 214.0 Postmenopausal 0.0 - 0.1 Performed at: [facility] [id number] Side Door Worker: Matias Irene PhD, Phone: [phone] PERFORMED BY: [place] [address] PATHOLOGIST PATTERN MAKER PROGRAMER DONAL GRIMES M.D.Performed By: #### HCGQNT #### [place] [address] USASerum or plasma progesterone measurement (mass/volume) Ordered By: Gigi Tafoya on 81-57-4590Yxigikszmrib [Mass/Vol]10.9 ng/mLSt. Rita'S HospitalComment on above:Follicular phase 0.1 - 0.9 Luteal phase 1.8 - 23.9 Ovulation phase 0.1 - 12.0 First trimester 11.0 - 44.3 Second trimester 25.4 - 83.3 Third trimester 58.7 - 214.0 Postmenopausal 0.0 - 0.1 Performed at: - [facility] [id number] Side Door Worker: Matias Irene PhD, Phone: [phone] DL <= 0.005 mIU/L Qn Ordered By: Gigi Tafoya on 26-04-6335BOS Qn0.01 m[IU]/L0.45-5.33St. Rita'S HospitalThyroid Stimulating Hormoneon 08-73-5013GQF Qn0.01 m[IU]/LLow0.45-5.33St. Rita'S HospitalComment on above:Result Comment: PERFORMED BY: [place] [address] PATHOLOGIST PATTERN MAKER PROGRAMER DONAL GRIMES M.D.Performed By: #### HCGQNT #### [facility] [address] [place] [address] USACoagulation Profileon 62-41-8836iFLX Coag (Bld) [Time]38.7 sHigh25.1-36.5FMercy Health Urbana HospitalComment on above:Result Comment: PERFORMED BY: [place] [address] PATHOLOGIST PATTERN MAKER PROGRAMER DONAL GRIMES M.D.Performed By: #### T4F, CBC, PP, TSH3, HCGQNT, FSH #### [facility] [address] [place] [address] #### DHEAS, LH, DHEA #### [facility] ,INR Coag (PPP) [Relative time]1.1 {INR}[facility] Comment on above:Result Comment: INR Therapeutic [...] T4F, CBC, PP, TSH3, HCGQNT, FSH #### [address] #### DHEAS, LH, DHEA #### [facility] ,PT Coag (PPP) [Time]12.6 sNormal9.0-12.9[facility] Comment on above:Performed By: #### T4F, CBC, PP, TSH3, HCGQNT, FSH #### [address] #### DHEAS, LH, DHEA #### [facility] ,Complete Blood Count Auto Diffon 81-77-9597Dwllumdns (Bld) [#/Vol]0.1 10*3/uL Normal0.0-0.2FMercy Health Urbana HospitalComment on above:Result Comment: PERFORMED BY: [place] [address] PATHOLOGIST PATTERN MAKER PROGRAMER DONAL GRIMES M.D.Performed By: #### T4F, CBC, PP, TSH3, HCGQNT, FSH #### [address] #### DHEAS, LH, DHEA #### [facility] ,Basophils/100 WBC (Bld)0.8 %Normal.St. Rita'S HospitalComment on above:Performed By: #### T4F, CBC, PP, TSH3, HCGQNT, FSH #### [address] #### DHEAS, LH, DHEA #### [facility] ,Eosinophils (Bld) [#/Vol]0.0 10*3/uLNormal0.0-0.45St. Rita'S HospitalComment on above:Performed By: #### T4F, CBC, PP, TSH3, HCGQNT, FSH #### [place] [id number] [place] #### DHEAS, LH, DHEA #### [facility] ,Eosinophils/100 WBC (Bld)0.7 %Normal.St. Rita'S HospitalComment on above:Performed By: #### T4F, CBC, PP, TSH3, HCGQNT, FSH #### [address] #### DHEAS, LH, DHEA #### [facility] ,Erythrocyte distribution width (RBC) [Ratio]12.2 %Yozfoj98.9-15.3FMercy Health Urbana HospitalComment on above:Performed By: #### T4F, CBC, PP, TSH3, HCGQNT, FSH #### [address] #### DHEAS, LH, DHEA #### [facility] ,Hematocrit (Bld) [Volume fraction]40.2 %Dhoqdz50.0-46.4FMercy Health Urbana HospitalComment on above:Performed By: #### T4F, CBC, PP, TSH3, HCGQNT, FSH #### [place] [address] [place] #### DHEAS, LH, DHEA #### [facility] ,Hemoglobin (Bld) [Mass/Vol]13.5 g/oUFlaypg25.8-15.4FMercy Health Urbana HospitalComment on above:Performed By: #### T4F, CBC, PP, TSH3, HCGQNT, FSH #### [place] [address] [place] #### DHEAS, LH, DHEA #### [facility] ,Lymphocytes (Bld) [#/Vol]1.6 10*3/uLNormal1.00-4.8St. Rita'S HospitalComment on above:Performed By: #### T4F, CBC, PP, TSH3, HCGQNT, FSH #### [place] [address] [place] #### DHEAS, LH, DHEA #### [facility] ,Lymphocytes/100 WBC (Bld)24.5 %Normal.St. Rita'S HospitalComment on above:Performed By: #### T4F, CBC, PP, TSH3, HCGQNT, FSH #### [facility] [address] [place] [address] #### DHEAS, LH, DHEA #### [facility] ,MCH (RBC) [Entitic mass]29.7 gaEurkhd66.7-34.3FMercy Health Urbana Hospital Comment on above:Performed By: #### T4F, CBC, PP, TSH3, HCGQNT, FSH #### [address] #### DHEAS, LH, DHEA #### [facility] ,MCV (RBC) [Entitic vol]88.7 jAAnhkrj66-134IlwmjqcxySt. Rita'S Hospital Comment on above:Performed By: #### T4F, CBC, PP, TSH3, HCGQNT, FSH #### [place] [address] [place] #### DHEAS, LH, DHEA #### [facility] ,Mean Corpuscular HGB Conc33.5 g/aFAsiaut21.0-35.0St. Rita'S HospitalComment on above:Performed By: #### T4F, CBC, PP, TSH3, HCGQNT, FSH #### [place] [address] [place] #### DHEAS, LH, DHEA #### [facility] ,Monocytes (Bld) [#/Vol]0.7 10*3/uLNormal0.0-0.8St. Rita'S HospitalComment on above:Performed By: #### T4F, CBC, PP, TSH3, HCGQNT, FSH #### [place] [address] [place] #### DHEAS, LH, DHEA #### [facility] ,Monocytes/100 WBC (Bld)10.8 %Normal.St. Rita'S HospitalComment on above:Performed By: #### T4F, CBC, PP, TSH3, HCGQNT, FSH #### [place] [address] [place] #### DHEAS, LH, DHEA #### [facility] ,Neutrophils (Bld) [#/Vol]4.3 10*3/uLNormal1.8-7.7FMercy Health Urbana HospitalComment on above:Performed By: #### T4F, CBC, PP, TSH3, HCGQNT, FSH #### [address] #### DHEAS, LH, DHEA #### [facility] ,Neutrophils/100 WBC (Bld)63.2 %Normal.St. Rita'S HospitalComment on above:Performed By: #### T4F, CBC, PP, TSH3, HCGQNT, FSH #### [address] #### DHEAS, LH, DHEA #### [facility] ,Nucleated RBC/100 WBC (Bld) [Ratio]0.1 %Normal0-0.5FMercy Health Urbana HospitalComment on above:Performed By: #### T4F, CBC, PP, TSH3, HCGQNT, FSH #### [place] [address] [place] #### DHEAS, LH, DHEA #### [facility] ,Platelet mean volume (Bld) [Entitic vol]8.3 fLNormal6.3-10.7FMercy Health Urbana HospitalComment on above:Performed By: #### T4F, CBC, PP, TSH3, HCGQNT, FSH #### [place] [address] [place] #### DHEAS, LH, DHEA #### [facility] ,Platelets (Bld) [#/Vol]274 10*3/bXSksqki814-887WwzehkciiSt. Rita'S HospitalComment on above:Performed By: #### T4F, CBC, PP, TSH3, HCGQNT, FSH #### [facility] [address] [place] [address] #### DHEAS, LH, DHEA #### [facility] ,RBC (Bld) [#/Vol]4.54 10*6/uLNormal3.60-5.00[facility] Comment on above:Performed By: #### T4F, CBC, PP, TSH3, HCGQNT, FSH #### [facility] [address] [place] [address] #### DHEAS, LH, DHEA #### [facility] ,WBC (Bld) [#/Vol]6.7 10*3/uLNormal4.5-11.0[facility] Comment on above:Performed By: #### T4F, CBC, PP, TSH3, HCGQNT, FSH #### [facility] [address] [place] [address] #### DHEAS, LH, DHEA #### [facility] ,Dehydroepandrosteroneon 21-16-3185OZLK006 ng/tGLltoxq49-091UdrupbjrmSt. Rita'S HospitalComment on above:Result Comment: This test was developed and its performance characteristics determined by [facility]. It has not been cleared or approved [...] >19 years 31 - 701 Performed at: [address] [id number] Side Door Worker: Micah Angelo MD, Phone: [phone] PERFORMED BY: [place] [address] PATHOLOGIST PATTERN MAKER PROGRAMER DONAL GRIMES M.D.Performed By: #### HCGQNT #### [facility] [address] [place] [address] USADehydroepiandrosterone Sulfateon 02-25-2021 Dehydroepiandrosterone Yjfyhlt217.0 ug/oCEuhcof50.8-378.0St. Rita'S HospitalComment on above:Performed By: #### HCGQNT #### [place] [id number] USAFollicle Stimulating Hormoneon 99-02-8675Natzafin Stimulating Hormone4.3 m[iU]/mLNormalSt. Rita'S HospitalComment on above:Result Comment: FEMALE NORMALS (PREMENOPAUSE) MID-FOLLICULAR PHASE: 3.9-8.8 mIU/mL MID-CYCLE PEAK: 4.5-22.5 mIU/mL MID-LUTEAL PHASE: 1.8-5.1 mIU/mL FEMALE NORMALS (POSTMENOPAUSE): 16.7-113.6 mIU/mL MALE NORMALS: 1.3-19.3 mIU/mLPerformed By: #### HCGQNT #### [place] [address] USAFree T4 (Free Thyroxine)on 33-24-7370Fkji T4 [Mass/Vol] 1.66 ng/dLHigh0.61-1.12St. Rita'S HospitalComment on above: Performed By: #### T4F, CBC, PP, TSH3, HCGQNT, FSH #### [address] #### DHEAS, LH, DHEA #### [facility] ,HCG,Quantitativeon 07-48-2419RIK,Quantitative< 0.60NormalSt. Rita'S HospitalComment on above:Result Comment: Approximate Approximate hCG Gestational Age Range (mIU/ml) (weeks) 0.2-1 5-50 1-2 50-500 2-3 100-5,000 3-4 500-10,000 4-5 1,000-50,000 5-6 10,000-100,000 6-8 15,000-200,000 8-12 10,000-100,000 PERFORMED BY: [place] [address] PATHOLOGIST PATTERN MAKER PROGRAMER DONAL GRIMES M.D.Performed By: #### HCGQNT #### [facility] [address] [place] [address] USALuteinizing Hormoneon 23-48-4150Wqkbvhyipup Hormone4.4 m[iU]/mLNormal.St. Rita'S HospitalComment on above:Result Comment: Adult Female: Follicular phase 2.4 - 12.6 Ovulation phase 14.0 - 95.6 Luteal phase 1.0 - 11.4 Postmenopausal 7.7 - 58.5 Performed at: [facility] [id number] Side Door Worker: Matias Irene PhD, Phone: [phone] By: #### HCGQNT #### [place] [address] USAThyroid Stimulating Hormoneon 89-66-8124DUM Qn0.25 m[IU]/L Low0.45-5.33St. Rita'S HospitalComment on above:Performed By: #### HCGQNT #### [place] [id number] USAUS transvaginalon 36-86-2797SR transvaginalFIRELANDS REGIONAL MEDICAL [facility]ENTER [facility] [place] [address] [place] [address] Ultrasound Report Signed Patient: Keysha Gardner MR#: [id number] 3 : 1995 Acct:[id number] Age/Sex: 25 / F ADM Date: 02/25/21 Loc: Room: Type: [facility] Attending Dr: Gigi Tafoya Ordering Provider: Gigi Tafoya Date of Service: 02/25/21 US/US pelvic complete: N92.6 ([id number]) US/US transvaginal: N92.6 Copies to: Gigi Michelet TRANSABDOMINAL AND TRANSVAGINAL PELVIC ULTRASOUND HISTORY: Short [...] Mitchell Butts M.D.02/25/2021 3:04 PM Dictation Location: [place] [address] Tech: [facility] Transcribed By: LOKESH 02/25/21 1504 Dictated By: Mitchell Butts DO 02/25/21 1503 Signed By: 02/25/21 1504[facility] Community HospitalXR FOOT RIGHT 3+ VIEWS (STANDARD)on 26-57-8639IR oblique lateral: No obvious foreign body appreciated. No gas in tissue no cortical loss. Mild forefoot edema present.[facility] CenterioPromedica Flower HospitalRadiology Study observation (narrative)[facility] HospitalXR FOOT RIGHT 3+ VIEWS (STANDARD)AP oblique lateral: No obvious foreign body appreciated. No gas in tissue no cortical loss. Mild forefoot edema present. Dictated by: JUAN R BHAGAT on MonOct 15, 2020 4:31:18 PM EDT Transcribed by: JUAN R BHAGAT on Kaylynn Oct 15, 2020 4:31:18 PM EDT Finalized by: JUAN R BHAGAT on MonOct 15, 2020 4:31:18 PM EDTNoAvita Health System [facility] Hospital AmbulatoryComment on above:Order Comment: Injury/Trauma or Illness?:Illness/Other How long have you had these symptoms (acute/chronic)?:Acute Reason for exam?:Possible foreign body right foot under 3rd toe History of cancer?:u Surgeries, chemotherapy, or radiation?:u Type of Exam?:Subsequent/Follow-up Additional signs and symptoms?:redness and swllingSkin prepOrdered By: Juan R Bhagat on 41-17-6016Xsqvera for I&D.[facility] HospitalHealthQuantiFERON TBon 86-55-3687Vlwlqz Jomar minus NIL7.65 IU/mLNormalUniversity Hospitals Lake West Medical Center Comment on above:Performed By: #### VZI #### [facility] [place], [place] [id number] Side Door Worker: Jc Alvarado MD #### AQF #### [facility] [address] [place] [address] Side Door Worker: Fernando Davis MDQuantaram TB Gold PlusNegativeNormalNegativeUniversity Hospitals Lake West Medical CenterComment on above:Result Comment: (NOTE) Interpretive Data: Quantiferon [...] Mycobacterium tuberculosis Infection --- [place], 2010 (http://www.cdc.gov/mmwr/preview/mmwrhtml/am4982o3.htm), for more information concerning test performance in low-prevalence populations and use in occupational screening.Performed By: #### VZI #### [facility] [place], [place] [id number] Side Door Worker: Jc Alvarado MD #### AQF #### [facility] [address] [place] [address] Side Door Worker: Milton Mccloud TB1 minus NIL0.00 IU/mLNormal0.00-0.34 [facility] Medical CenterComment on above:Performed By: #### VZI #### [address] [address] Side Door Worker: Jc Alvarado MD #### AQF #### [address] [address] Side Door Worker: Fernando Davis MDQuanti TB2 minus NIL0.00 IU/mLNormal0.00-0.34 [facility] Medical CenterComment on above:Performed By: #### VZI #### [place] [address] Side Door Worker: Jc Alvarado MD #### AQF #### [address] [address] Side Door Worker: Fernando Davis MDQuantiFERON NIL0.04 IU/mLNormalUniversity Hospitals Lake West Medical CenterComment on above:Result Comment: (NOTE) Performed By: [address] [address] Cat Breeder: WILSON Calzadaerformed By: #### VZI #### [place] [address] Side Door Worker: Jc Alvarado MD #### AQF #### [address] [address] Side Door Worker: Fernando Davis MDVZ Immunityon 17-11-8546VM Immunity2.31Normal >1.09[facility] Medical CenterComment on above:Result Comment: Interpretation: IMMUNE Reference Range: <0.91 Not Immune 0.91-1.09 Equivocal >1.09 ImmunePerformed By: #### VZI #### [address] [address] Side Door Worker: Jc Alvarado MD #### AQF #### [address] [place] [address] Side Door Worker: GUILLERMO Mccloud Brain w/wo Contraston 65-45-0070EX Brain WO and W contrast IVInterpreted by: GERONIMO KATZ12/04/19 14:55MRN: [id number] Name: KEYSHA GARDNER STUDY:MRI BRAIN W/WO CONTRAST; [...] or midlineshift.Electronically signed by: GERONIMO KATZ 12/04/19 14:55[facility] Work Phone: nr MRI BRAIN W/WO CONTRASTon 41-50-4260VM MRI BRAIN W/WO CONTRASTMRN: [id number] Patient Name: KEYSHA GARDNER STUDY: MRI BRAIN W/WO CONTRAST; 12/04/2019 2:19 pm INDICATION: worsening headaches, tremor. COMPARISON: None. ACCESSION NUMBER(S): [id number] ORDERING CLINICIAN: LORE GARDINER TECHNIQUE: Axial T2, [...] midline shift. Electronically signed by: GERONIMO KATZ, [facility] 92-24-3809Kuot T4 [Mass/Vol]2.5 ng/dLHigh0.9-1.7AHawkins County Memorial HospitalComment on above:Result Comment: Patients taking a biotin [...] the laboratory result.Performed By: #### FT4A #### [address] [address]GHCao 31-52-6698ZVM7.420 uIU/mLNormal0.270-4.200Cherrington HospitalComment on above:Result Comment: : 1st trimester:(9-12 [...] the laboratory result.Performed By: #### LTSH #### [facility] [address] [place], [place] [address]MABfw 51-76-0124ECI3.220 uIU/mLHigh0.270-4.200[facility] on above:Result Comment: : 1st trimester:(9-12 weeks):0.180-2.900 [...] the laboratory result.Performed By: #### LTSH #### [address] [address]JAKMXGGECHUZNCNR,FREEon 62-45-9307TRPRXOHPSQITRXJL,FREE3.2 pg/mLNormal2.3 - 4.2SHoward Young Medical Center on above:Result Comment: Note new reference range as of 04/30/2019.Performed By: #### T3FRE #### [facility] [address] [place], [place] [address]AYVGOVYWY,FREEon [id number],FREE1.16 ng/dLHigh0.61 - 1.12[facility] on above:Result Comment: Thyroxine Free testing is performed using different testing methodology at [facility] than [facility]. Direct result comparisons should only be [...] the blood draw.Performed By: #### T4FRE #### [address] [id number] [id number] Qn0.19 m[IU]/LLow0.44 - 3.98[facility] on above:Result Comment: Note new pediatric reference range as of 05/02/2019. TSH testing is performed using different testing methodology at [facility] than at other [facility]. Direct result comparisons should only be made within the same method.Performed By: #### TSH2 #### [address] [address]Lghe Diffon [id number] (Bld) [#/Vol]0.0 E3/mcLNormal 0.0-0.2[facility] SystemComment on above:Order Comment: Order Added by Discern Expert.Performed By: #### [id number] #### [address] [address]Btmyhfbsa/100 WBC (Bld)0.7 %Normal0.0-2.0[facility] CenterComment [facility]:Order Comment: Order Added by Discern Expert. Performed By: #### [id number] #### [address] [address]Htz Absolute0.1 E3/mcLNormal0.0-0.7[facility] CenterComment on above:Order Comment: Order Added by Discern Expert.Performed By: #### [id number] #### ALEIDA [address] [address]Mqcqglpsjmh/100 WBC (Bld)0.9 %Normal0.0-11.0[facility] SystemComment on above:Order Comment: Order Added by Discern Expert. Performed By: #### [id number] #### [address] [address]Stuuinnhdpi (Bld) [#/Vol]2.4 E3/mcLNormal1.2-3.4SSwed[facility] SystemComment on above:Order Comment: Order Added by Discern Expert.Performed By: #### [id number] #### ALEIDA RemHemo [address] [place], [place] [address]Dgoojrvyyva/100 WBC (Bld)37.3 %Thfwjq78.0-55.0[facility] SystemComment on above:Order Comment: Order Added by Discern Expert.Performed By: #### [id number] #### ALEIDA Hardingo [address] [place] [address]Ayrf Absolute0.7 E3/mcLNormal0.0-0.7[facility] SystemComment on above:Order Comment: Order Added by Discern Expert.Performed By: #### [id number] #### ALEIDA CrandallHemo [address] [place] [address]Guekgjlyl/100 WBC (Bld)10.1 %High0.0-10.0[facility] SystemComment on above:Order Comment: Order Added by Discern Expert. Performed By: #### [id number] #### ALEIDA CrandallHemo [address] [place] [address]Fsaxys Absolute3.3 E3/mcLNormal1.4-6.5SS[facility] SystemComment on above:Order Comment: Order Added by Discern Expert.Performed By: #### [id number] #### ALEIDA CrandallHemo [address] [place] [address] 65614Kefihf Auto51.0 %Mdvlra43.0-75.0[facility] SystemComment on above:Order Comment: Order Added by Discern Expert.Performed By: #### [id number] #### ALEIDA CrandallHemo [address] [place] [address] 51353ZJS w/ Auto Diffon 30-98-1831Vmhyukytxsi distribution width (RBC) [Ratio]12.2 %Izmwfz11.5-14.5SSwedish Medical Center Ballard SystemComment on above:Performed By: #### [id number] #### ALEIDA CrandallHemo [address] [place] [address] 91018Ackrllvbcg (Bld) [Volume fraction]40.7 %Mewipo46.0-48.0 [facility] SystemComment on above:Performed By: #### [id number] #### ALEIDA CrandallHemo [address] [place] [address] 92393Lffgvstcyv (Bld) [Mass/Vol]13.5 g/uMYtykop34.0-16.0[facility] SystemComment on above:Performed By: #### [id number] #### ALEIDA KarleyHemlala [address] [place], [place] [address]MCH (RBC) [Entitic mass]30.4 vkZfpayd02.0-31.0[facility] SystemComment on above:Performed By: #### [id number] #### ALEIDA KarleyHemlala [address] [place], [place] [address]MCHC (RBC) [Mass/Vol]33.1 g/yUFbehji33.0-37.0[facility] SystemComment on above:Performed By: #### [id number] #### ALEIDA KarleyHemlala [address] [place], [place] [address]MCV (RBC) [Entitic vol]91.7 xVXbrtae83.0-100.0[facility] SystemComment on above:Performed By: #### [id number] #### ALEIDA CrandallHemlala [address] [place], [place] [address]Platelet mean volume (Bld) [Entitic vol]9.0 fLNormal7.4-11.0 [facility] SystemComment on above:Performed By: #### [id number] #### ALEIDA KarleyHemlala [address] [place] [address] 14757Ihyaszbjk (Bld) [#/Vol]283 E3/ynUEbmcal963-020Kkexnfiut Regional Health SystemComment on above:Performed By: #### [id number] #### ALEIDA KarleyHemlala [address] [place] [address] 05983DMB (Bld) [#/Vol]4.44 E6/mcLNormal3.90-5.40SSwed[facility] Ball[facility] SystemComment on above:Performed By: #### [id number] #### ALEIDA KarleyHemlala [address] [place] [address] 99709HSZ (Bld) [#/Vol]6.5 E3/mcLNormal3.6-11.0[facility] SystemComment on above:Performed By: #### [id number] #### ALEIDA CrandallHemo [address] [place] [address] 52434GBQpj 14-83-6189Unmzqau [Mass/Vol]4.1 g/dLNormal3.4-5.0 [facility] CenterComment on above:Performed By: #### [id number] #### ALEIDA [employer] [address] [place] [address] 47468Lojccrw/Globulin [Mass ratio]1.4 {ratio}Normal1.1-1.9[facility] Medical CenterComment on above:Performed By: #### [id number] #### ALEIDA [employer] [address] [place] [address] 25440Dng Phos51 Int._Unit/COnbeir23-847XkhsynzmkBradley County Medical CenterComment on above:Performed By: #### [id number] #### ALEIDA [employer] [address] [place] [address] 71517LFY [Catalytic activity/Vol]17 Int._Unit/LNormal7-45[facility] SystemComment on above:Performed By: #### [id number] #### [facility] [employer] [address] [place] [address] 31877Pfrvf gap [Moles/Vol]9 mmol/RWom38-89EisuvmejoSwedish Medical Center Ballard SystemComment on above:Performed By: #### [id number] #### [facility] [employer] [address] [place] [address] 61441LVY [Catalytic activity/Vol]12 Int._Unit/LNormal9-39[facility] Medical CenterComment on above:Performed By: #### [id number] #### ALEIDA [employer] [address] [place] [address] 72781Cgfg Total0.69 mg/dLNormal0.00-1.20SSwed[facility] Center Ballard SystemComment on above:Performed By: #### [id number] #### ALEIDA [employer] [address] [place] [address] 56779Ajhoeyb [Mass/Vol]9.3 mg/dLNormal8.6-10.3SSwedish Medical Center Ballard SystemComment on above:Performed By: #### [id number] #### [facility] [employer] [address] [place] [address] 33588Ltforoxv [Moles/Vol]105 mmol/QLpehyf66-860KnemlskdaProsser Memorial Hospital SystemComment on above:Performed By: #### [id number] #### ALEIDA [employer] [address] [place], [place] [address]DK4 [Moles/Vol]27.0 mmol/DIeibsw61.0-32.0[facility] SystemComment on above:Performed By: #### [id number] #### ALEIDA [employer] [address] [place] [address] 91723Myqtcntyqg [Mass/Vol]0.7 mg/dLNormal0.5-1.1SChambers Medical CenterComment on above:Performed By: #### [id number] #### ALEIDA [employer] [address] [place] [address] 84602Ahkfuqqn (S) [Mass/Vol]3.0 g/dLNormal2.0-4.0[facility] Medical CenterComment on above:Performed By: #### [id number] #### ALEIDA [employer] [address] [place] [address] 68985Yznwarr [Mass/Vol]87 mg/gLOikmvn01-90EkvqdtvwzProsser Memorial Hospital SystemComment on above:Performed By: #### [id number] #### ALEIDA [employer] [address] [place] [address] 48218Fbmlyyutp [Moles/Vol]3.8 mmol/LNormal3.5-5.3SChambers Medical CenterComment on above:Performed By: #### [id number] #### ALEIDA [employer] [address] [place] [address] 35599Sxbxqrp [Mass/Vol]7.0 g/dLNormal6.4-8.2SSwed[facility] Medical Center Ballard SystemComment on above:Performed By: #### [id number] #### ALEIDA [employer] [address] [place] [address] 30571Zdawmm [Moles/Vol]137 mmol/ZQjoavt544-310DxmymhyfwProsser Memorial Hospital SystemComment on above:Performed By: #### [id number] #### ALEIDA [employer] [address] [place] [address] 14917Zqnn nitrogen [Mass/Vol]14 mg/dLNormal6-23[facility] SystemComment on above:Performed By: #### [id number] #### ALEIDA [employer] [address] [place], [place] [address]Rxjz nitrogen/Creatinine [Mass ratio]20.0 ratioNormal5.4-30.0 [facility] CenterComment on above:Performed By: #### [id number] #### ALEIDA [employer] [address] [place] [address] 17091Hcdi T4on 75-16-0106Lsnn T4 [Mass/Vol]1.12 ng/dLNormal0.58-1.64 [facility] CenterComment on above:Result Comment: Patients receiving more than 5mg/day of biotin may have interference in test results. A sample should be taken no sooner than eight hours after previous dose.Performed By: #### [id number] #### ALEIDA [employer] [address] [place] [address] 22342Bwbocjnckuv 01-85-4622Gqbyyvlzq [Mass/Vol]2.0 Int._Unit/LNormal 1.6-2.4SChambers Medical CenterComment on above:Performed By: #### [id number] #### ALEIDA [employer] [address] [place] [address] 29948VTBde 91-96-4362NNK Qn1.13 mcIU/mLNormal0.30-5.60[facility] Medical CenterComment on above:Performed By: #### [id number] #### ALEIDA KarleyLevel [employer] [address] [place] [address] 57600sFECoc 53-77-9277MAF/1.73 sq M predicted among non-blacks MDRD (S/P/Bld) [Vol rate/Area]mL/min/{1.73_m2}[facility] Comment on above:Order Comment: Order added by Discern Expert.Performed By: #### [id number] #### ALEIDA [employer] [address] [place] [address] Vital Signs Date TimeVital SignValuePerforming EzjysztzfZmatajuz24-34-4746 10:36-0500Body mass index (BMI) [Ratio]24.79 kg/l6Oufki Michelet DO Work Phone: NOHarry S. Truman [facility]' HospitalBorerofetl45-51-8779 10:36-0500Body .38 kgCorey Michelet DO Work Phone: [facility] HospitalSowkebgeik04-10-6146 10:36-0500Diastolic blood uszzoqop14 mm[Hg]Gigi Michelet DO Work Phone: [facility] HospitalLdqdvdhrsv12-43-8443 10:36-0500Systolic blood wsqtsaoh303 mm[Hg]Gigi Michelet DO Work Phone: [facility] HospitalSgeytspqmk29-39-4143 08:05-0500Body fidbrg628.8 cmDariela Weisschter FILM AND VIDEO GRAPHICS DESIGNER-SUPERVISOR PRE WAVE Work Phone: [facility]11-04-2025 08:05-0500Body mass index (BMI) [Ratio]24.85 kg/f2Owoxxp Iselachter FILM AND VIDEO GRAPHICS DESIGNER-SUPERVISOR PRE WAVE Work Phone: [facility]11-04-2025 08:05-0500Body xvfrahnqjtf19.81 [degF]Dariela Fredericker FILM AND VIDEO GRAPHICS DESIGNER-SUPERVISOR PRE WAVE Work Phone: [facility]11-04-2025 08:05-0500Body .56 kgKendra Zhaolachter FILM AND VIDEO GRAPHICS DESIGNER-SUPERVISOR PRE WAVE Work Phone: [facility]11-04-2025 08:05-0500Diastolic blood wqtommke27 mm[Hg]Dariela Pavelgodfreychter FILM AND VIDEO GRAPHICS DESIGNER-SUPERVISOR PRE WAVE Work Phone: [facility]11-04-2025 08:05-0500Heart rate 68 /minKendra Zhaolachter FILM AND VIDEO GRAPHICS DESIGNER-SUPERVISOR PRE WAVE Work Phone: [phone]-[facility]11-04-2025 08:05-0500Systolic blood jtawormd504 mm[Hg]Dariela Iselageeer FILM AND VIDEO GRAPHICS DESIGNER-SUPERVISOR PRE WAVE Work Phone: [facility]10-20-2025 15:20-0400Body ubgkey002.8 cmCorey Michelet DO Work Phone: [facility] HospitalNygftsfjzh64-96-4026 15:20-0400Body mass index (BMI) [Ratio]24.68 kg/y0Ekfuy Michelet DO Work Phone: [facility] HospitalQtlhrdksym18-38-3877 15:20-0400Body zuzewu70.02 kgCorey Michelet DO Work Phone: [facility] HospitalNtiolrpmlt09-81-4200 15:20-0400Diastolic blood scqmevpy65 mm[Hg]Gigi Michelet DO Work Phone: [facility] HospitalZutwluuopf62-37-1367 15:20-0400Systolic blood sqdvythv949 mm[Hg]Gigi Michelet DO Work Phone: [facility] HospitalNrqtogmspt72-28-0561 14:38-0500Body jzpnti447.8 cmHilary Briscoe MD Work Phone: [phone]01-22-2025 14:38-0500Body mass index (BMI) [Ratio]24.54 kg/c9ArxiqayHilary Briscoe MD Work Phone: [phone]01-22-2025 14:38-0500Body .56 kgHilary Briscoe MD Work Phone: [phone]01-22-2025 14:38-0500Diastolic blood ovusepac23 mm[Hg]Hilary Briscoe MD Work Phone: [phone]01-22-2025 14:38-0500Heart rate 108 /minHilary Briscoe MD Work Phone: [phone]01-22-2025 14:38-0500Systolic blood zuvflhnc554 mm[Hg]Hilary Briscoe MD Work Phone: [phone]08-19-2024 15:36-0400Body yatxur928.8 cmCorey Michelet DO Work Phone: [facility] HospitalLieyguefby23-43-4763 15:36-0400Body mass index (BMI) [Ratio]24.39 kg/h4Qvmpo Michelet DO Work Phone: [facility] HospitalOjjxcncsri16-91-8816 15:36-0400Body rawtqp61.11 kgCorejerrell Tafoya DO Work Phone: NOHarry [facility]. [facility]' HospitalHuhninblhd05-15-6116 15:36-0400Diastolic blood pkmyyyvm53 mm[Hg]Gigi Singletono DO Work Phone: [place] [address]Wznibfjhbh85-20-9959 15:36-0400Systolic blood ychxyapa559 mm[Hg]Gigi Tafoya DO Work Phone: [facility] HospitalAkriznmces21-61-0204 09:00-0400Body .8 cmJose Leroy MD Work Phone: [facility]04-15-2024 09:00-0400Body uvqlcq84.02 kgJose Leroy MD Work Phone: [facility]04-15-2024 09:00-0400Diastolic blood ccistmbu40 mm[Hg]Jose Leroy MD Work Phone: [facility]04-15-2024 09:00-0400Heart rate87 /min Jose Leroy MD Work Phone: [facility]04-15-2024 09:00-0400Systolic blood kqrubprj550 mm[Hg]Jose Leroy MD Work Phone: [facility]03-09-2023 08:55-0500Body qegsjd764.34 cmKatmorgan Ho [facility] Work Phone: 1([phone]) 259-7430039-7092UZ-OWHED[address] Work Phone: 1(406) 718-956503-09-2023 08:55-0500Body mass index (BMI) [Ratio] 21.76 kg/j6Hpggbmkrq Vic [facility] Work Phone: [phone]-DKACA[address] Work Phone: 1(166) 171-814403-09-2023 08:55-0500Body surface area Derived from formula1.9 q0Kexxrcswb Vic [facility] Work Phone: [phone]) [phone]-FXVWH[address] Work Phone: 1(578) 434-820203-09-2023 08:55-0500Body ecrssq64.76 kgKatine Vic Longmaurizio Work Phone: [phone]-ZXMVC[address] Work Phone: 1(216)485-024957-88471039-31-9832 08:55-0500Diastolic blood mm[Hg] Lore Vic Longrebekahorf Work Phone: OC-FSGRU[address] Work Phone: 1(216)[phone] 08:55-0500Heart swfp998 /minJohnine Vic Longmaurizio Work Phone: QC-MHKAE[address] Work Phone: 1(216)[phone]80 08:55-0500Systolic blood ntlosfvu637 mm[Hg] Lore Vic Gardiner Work Phone: VO-PBORB[address] Work Phone: 1(216)900-131280-44323086-28-8177 08:55-30126 1Katherine Vic Sotoorf Work Phone: AN-FLRNX[address] Work Phone: Comment on above:XCQE69-92-4282 08:55-84873 1Katherine A Longsdorf Work Phone: [phone]-IDMPM[address] Work Phone: Comment on above:DLGWOsscNlkks06-23-5756 08:24-0500 Body sjzwku663.8 cmJose Leroy MD Work Phone: [facility]02-16-2023 08:24-0500Body kqqrhu05.72 kgJose Leroy MD Work Phone: [facility]02-16-2023 08:24-0500Diastolic blood zubvygqx21 mm[Hg]Jose Leroy MD Work Phone: [facility]02-16-2023 08:24-0500Heart rate98 /min Jose Leroy MD Work Phone: [facility]02-16-2023 08:24-0500Systolic blood kunmcmep088 mm[Hg]Jose Leroy MD Work Phone: [facility]12-20-2022 15:13-0500Blood Pressure LocationSiván Lucia [phone]-KqfqnOur [facility] 02-15-2022 15:13-0500Diastolic blood yphujzii91 mm[Hg]Chen Lucia [phone]-CixmgOur Lady Of Mercy Hospital 02-15-2022 15:13-0500Heart rate96 /Jimbo Lucia [phone]-NzhzeOur Lady Of Mercy Hospital 02-15-2022 15:13-1474QnB3% (BldA) [Mass fraction]100 %Chen Lucia [phone]-JppspOur Lady Of Mercy Hospital 02-15-2022 15:13-0500Systolic blood hsemfdef445 mm[Hg]Chen Lucia [phone]-EgxpjOur Lady Of Mercy Hospital 07-20-2021 18:23-0400Body fiplrb192.8 cmSt[facility] 07-20-2021 18:23-0400Body mass index (BMI) [Ratio]22.9 kg/t2KcspaturySt. Rita'S Hospital05-24-2022 18:23-0400Body qndxdtiyvus70.9 [degF][facility]05-24-2022 18:23-0400Body yzrice44.65 kgSt[facility]05-24-2022 18:23-0400Diastolic blood pvyyqmey28 mm[Hg][facility]05-24-2022 18:23-0400Heart yceg923 /[facility]05-24-2022 18:23-0400Respiratory rate19 /[facility]05-24-2022 18:23-7241ArB7% (BldA) [Mass fraction]100 %[facility]05-24-2022 18:23-0400Systolic blood myzdnjje297 mm[Hg] [facility]05-18-2022 14:00-0400Body asauxh491.34 cm Yenifer Missler Other [employer] Other 05-18-2022 14:00-0400Body mass index (BMI) [Ratio] 22.33 kg/d3Mtijncr Missler Other [employer] Other 05-18-2022 14:00-0400Body diwcdliuyda79.3 [degF] Yenifer Missler Other [employer] Other 05-18-2022 14:00-0400Body nnbylo61.62 kgHeather Missler Other [employer] Other 05-18-2022 14:00-0400Diastolic blood oozhbcfr63 mm[Hg] Yenifer Missler Other [employer] Other 05-18-2022 14:00-0400Respiratory rate18 /minHeather Missler Other [employer] Other 05-18-2022 14:00-3235GqU6% (BldA) [Mass fraction]98 % Yenifer Missler Other [employer] Other 05-18-2022 14:00-0400Systolic blood wgcfiidi843 mm[Hg] Yenifer Missler Other [employer] Other 03-24-2022 08:27-0400Body bqpqae723.8 cmJose Leroy MD Work Phone: [facility]03-24-2022 08:27-0400Body wdfegc17.13 kgMichael Kenduskeag MD Work Phone: [facility]03-24-2022 08:27-0400Diastolic blood rbkzxxia60 mm[Hg]Jose Leroy MD Work Phone: [facility]03-24-2022 08:27-0400Heart rate87 /min Jose Leroy MD Work Phone: [facility]03-24-2022 08:27-0400Systolic blood fqtrefnc199 mm[Hg]Jose Leroy MD Work Phone: [facility]03-07-2022 15:45-0500Body fajmck400.34 cmDerashawn Ramirezly Other [employer] Other 03-07-2022 15:45-0500Body mass index (BMI) [Ratio] 21.62 kg/t4Ffiaoqprashawn Ramirezly Other [employer] Other 03-07-2022 15:45-0500Body yajtbfvijrr47.7 [degF] Aisha Ashleyly Other [employer] Other 03-07-2022 15:45-0500Body erinpc90.31 kgDerashawn Ramirezly Other [employer] Other 03-07-2022 15:45-0500Diastolic blood epibaqyj47 mm[Hg] Aisha Scally Other [employer] Other 03-07-2022 15:45-0500Respiratory rate18 /minDeborah Scally Other [employer] Other 03-07-2022 15:45-4794QfV9% (BldA) [Mass fraction]98 % Aisha Scally Other [facility] [employer] Other 03-07-2022 15:45-0500Systolic blood nslmksue363 mm[Hg] Aisha Boothe Other [facility] Other 08-27-2021 08:12-0400Body wdqikc641.8 cmJuan R Bhagat Jr., DPM Work Phone: [phone]dpuab61-36-9958 08:12-0400Body mass index (BMI) [Ratio]21.52 kg/b7YqvlueenJuan R Bhagat Jr., DPM Work Phone: [phone]moych07-07-4665 08:12-0400Body ejqdekeixnq57.5 [degF]Juan R Bhagat Jr., DPM Work Phone: [phone]pfscx45-65-8671 08:12-0400Body aqpsrz19.04 kg Juan R Bhagat Jr., DPM Work Phone: 1([phone]tguaf59-90-6377 08:12-0400Diastolic blood nvubugko40 mm[Hg]Juan R Bhagat Jr., DPM Work Phone: [phone]([phone]thqyd21-41-9605 08:12-0400Heart rate91 /min Juan R Bhagat Jr., DPM Work Phone: [phone])[phone]gyqLpmdow17-83-9352 08:12-0400Systolic blood pressure 126 mm[Hg]Juan R Bhagat Jr., DPM Work Phone: 1([phone]19YiokWayjfz37-01-0181 16:16-0400Body ghroiuwznvn09.8 [degF]Juan R Bhagat Jr., DPM Work Phone: 1(386) [phone]05KzymLyobuw08-97-7831 16:16-0400Diastolic blood frfokgzs79 mm[Hg]Juan R Bhagat Jr., DPM Work Phone: 1(258) [phone]016MwkqFwycgv55-67-6958 16:16-0400Heart rate96 /min Juan R Whitfieldn Jr., DPM Work Phone: 1(463)[phone]hZsvvtm75-31-5983 16:16-0400Systolic blood pressure 118 mm[Hg]Juan R Whitfieldn Jr., DPM Work Phone: 1(393)[phone]ntpYzyxbw64-36-5805 14:08-0400Body gkvaps703.8 cm Juan R Whitfieldn Jr., DPM Work Phone: 1(638)[phone]guoHujgxk66-58-1163 14:08-0400Body mass index (BMI) [Ratio]21.52 kg/y0Cewpeztcgudelia Whitfieldn Jr., DPM Work Phone: 1([phone])[phone]qkuwl49-29-3593 14:08-0400Body jdeyysbiuju10.7 [degF]Juan R Whitfieldn Jr., DPM Work Phone: 1(431)[phone]dKcqybh80-65-6325 14:08-0400Body liqadk96.04 kg Juan R Whitfieldn Jr., DPM Work Phone: 1(609)[phone]cvyWpadyp03-92-2270 14:08-0400Diastolic blood uyxvgxuu13 mm[Hg]Juan R Whitfieldn Jr., DPM Work Phone: 1([phone])[phone]lZodpyb45-63-1778 14:08-0400Heart rate85 /min Juan R Whitfieldn Jr., DPM Work Phone: [phone])[phone]tsrFzrxxs85-60-9065 14:08-0400Systolic blood pressure 137 mm[Hg]Juan R Leola Jr., DPM Work Phone: [phone]yrooi00-76-9186 17:30-0400BMI (Body Mass Index) 21.12 kg/l0JyyfbotksLore AraujoChrist[facility] Work Phone: 1(941) 437-879609-22-2020 17:30-0400Body Cqiryorpqdj54.6 [degF] Lore [facility] Work Phone: 1(985) 303-961809-22-2020 17:30-0400Body hizokw59.69 kgLore [facility] Work Phone: 1(957) 445-428009-22-2020 17:30-0400BP Jdhxhipsr02 mm[Hg]Lore [facility] Work Phone: 1(787) 330-315609-22-2020 17:30-0400BP Xdbjevzc441 mm[Hg]Lore [facility] Work Phone: 1(144) 626-639609-22-2020 17:30-0400BSA (Body Surface Area)1.87 m2 Lore [facility] Work Phone: 1(912) 582-918509-22-2020 17:30-6915Ydqzpm359.34 cmLore [facility] Work Phone: 1(990) 117-946309-22-2020 17:30-0400Pulse (Heart Rate)112 /min Lore [facility] Work Phone: Encounters Encounter DateEncounter TypeCare ProviderFacilityStart: 12-31-2024 End: 23-29-4299Ybscbx flowsheetCorey Michelet DO Work Phone: [facility]YNStart: 12-31-2024 End: 14-83-0217Cdsxwm flowsheetCorey Michelet DO Work Phone: [facility]BGYNStart: 12-31-2024 End: 08-80-2151Kqrvtpwey Result EncounterCorey Michelet DO Work Phone: [facility] External Department UnsolicitedStart: 12-31-2024 End: 92-73-1154Gocdklf encounter procedureCorey Michelet DO Work Phone: [facility] Work Phone: Start: 12-31-2024 End: 41-37-9612Cgxkhre encounter statusDariela Aquino 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 Work Phone: Start: 12-31-2024 End: 61-09-6793Yudipjxw preventive med est patient 18-39 yrsDariela Aquino FILM AND VIDEO GRAPHICS DESIGNER-SUPERVISOR PRE WAVE Work Phone: [facility] Physicians Family MedicineComment on above: Wellness examination (Primary Dx); Polycystic ovary syndrome; Elena's thyroiditisWell woman exam with routine gynecological exam; Elena's thyroiditis; History of miscarriageStart: 12-31-2024 End: 30-29-8757feyqwcbcivUFFNXGOtis R. [facility] Start: 60-63-7063Iycedfhzg for general adult medical examination without abnormal findingsSaint [facility] Ambulatory PPGStart: 12-16-2024 End: 09-95-4653Xpnzvs outpatient visit 15 minutesCorey Michelet DO Work Phone: [facility]ica OBGYNComment on above:Elena's thyroiditis; Infertility counseling; History of miscarriageStart: 12-16-2024 End: 26-34-0524vwjptapkfiTPFWI FAZIONot AvailableStart: 12-16-2024 End: 72-01-4605Kgicwy flowsheetCorey Michelet DO Work Phone: no[facility] OBGYNStart: 12-16-2024 End: 96-12-5717Afwpgo flowsheetCorey Michelet DO Work Phone: [facility]BGYNStart: 12-16-2024 End: 06-94-6220Gvufqb-up encounterHilary Briscoe MD Work Phone: [phone] LabComment on above:TSH with ReflexStart: 17-03-8777zphujhpjxhJJJWDBV RODEMANShel[facility] Hospital HospitalStart: 74-36-1793jysyjborswNBRFR [facility] Start: 40-66-4298pufmqjhckvCRSKQ R [facility] HospitalStart: 09-19-2024 End: 23-49-5860Vjtwvd-up encounterHilary Briscoe MD Work Phone: [facility] Physicians [place] EndocrinologyComment on above:TSH with ReflexStart: 11-06-3442fwzctspnziCXMSSMISaint Francis Memorial Hospitaltart: 09-05-2024 End: 86-81-8827Vnmyrzil Result EncounterCorey Michelet DO Work Phone: [facility] External Department UnsolicitedStart: 09-05-2024 End: 66-21-5713Tecsvvaf Result EncounterCorey Michelet DO Work Phone: noms External Department UnsolicitedStart: 09-05-2024 ambulatoryCOREY [facility] HospitalStart: 82-92-8607ralqtjkhie GIGI [facility] HospitalStart: 07-30-2024 End: 84-62-5316Nppvhz Santosh Briscoe MD Work Phone: [facility] EndocrinologyComment on above:Autoimmune thyroiditisStart: 07-29-2024 End: 26-76-6452Lyagfi Santosh Briscoe MD Work Phone: [facility] - LabComment on above:Autoimmune thyroiditis (Primary Dx)Start: 20-58-2046xsnjyjjqsuEKQNENE RODSt. Francis [facility] Center HospitalStart: 04-26-2024 End: 89-12-3072msuezcdskyFJOHS R [facility] HospitalStart: 04-02-2024 End: 14-74-7228hgkonpzjeoFERDP R [facility] HospitalStart: 03-29-2024 End: 76-31-1144gzacwjrifxFYIKUKV [facility] HospitalStart: 03-20-2024 End: 55-87-6314Huuwsq outpatient new 45 minutesHilary Briscoe MD Work Phone: [facility] [place] EndocrinologyComment on above:PCOS (polycystic ovarian syndrome); Thyroid disease; History of miscarriage; Elena's thyroiditisStart: 03-20-2024 End: 93-49-7143wwqbaytyvoOWKBVRH RODEMANMemorial [facility] PPGStart: 03-19-2024 End: 34-42-3011otvxazwquoDCKUOGenesis Hospitaltart: 01-15-2024 End: 63-00-6499Lzb Drop Deana Lucia [facility] Start: 01-15-2024 End: 05-80-0265xjhlxmbhivShlzke E. RossFacility:FTMCStart: 10-25-2023 End: 54-24-1668Ixlgt abstractingScanning Provider ExternalMaternal- Medicine at Mount Carmel Health Systemtart: 10-16-2023 End: 01-49-7771Pocrww outpatient visit 15 minutesCorey Michelet DO Work Phone: noms BCP OBComment on above:Elena's thyroiditis (CMS/HCC); History of miscarriageStart: 10-16-2023 End: 02-59-4647Ytwzjr flowsheetCorey Michelet DO Work Phone: [facility] BCP OBStart: 10-16-2023 End: 01-77-9024Iowloq flowsheetCorey Michelet DO Work Phone: NOM[facility] BCP OBStart: 10-12-2023 End: 15-09-7612Tjptvexfj Result EncounterCorey Michelet DO Work Phone: noms External Department UnsolicitedStart: 10-12-2023 End: 51-16-9612Vpuzkknmt Result EncounterCorey Michelet DO Work Phone: noms External Department UnsolicitedStart: 09-20-2023 ambulatoryMicbanner thunderbird medical centerl Rey Leroy MD Work Phone: [facility]ocrinologyStart: 96-71-2958Nmcbxnp encounter procedureJose Leroy MD Work Phone: [facility] EndocrinologyComment on above:TSH Trend/ LossStart: 14-77-5471Hyahnb OnlyJose Leroy MD Work Phone: [facility] EndocrinologyComment on above: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)PregnancyStart: 07-18-2023 End: 06-12-3963wfrsxwiyzuJewdmi E. 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 RossFacility:[facility] BellevueStart: 01-23-2023 End: 80-88-6574Atswegwrb Result EncounterCorey Michelet DO Work Phone: noms External Department UnsolicitedStart: 01-23-2023 End: 68-22-0290Rnnsekskv Result EncounterCorey Michelet DO Work Phone: NOMS External Department UnsolicitedStart: 11-15-2022 End: 49-51-8721Zbhmnqveg Result EncounterCorey Michelet DO Work Phone: NOUJ External Department UnsolicitedStart: 11-15-2022 End: 54-82-8699Atglkcfaf Result EncounterCorey Michelet DO Work Phone: noms External Department UnsolicitedStart: 11-02-2022 Mckenna Leroy MD Work Phone: [facility] EndocrinologyComment on above:TSH 0.58Start: 09-20-2022 End: 09-52-1347wggpuptrlxNPWTZRWKaryn NUNNOFacility:[facility] CenterStart: 50-37-6366Ejjtgmcdo encounterJose Leroy MD Work Phone: [facility] EndocrinologyComment on above:Future AppointmentStart: 93-89-6586wvpazzrjjkBtcpycqKaryn Leroy MD Work Phone: [facility] EndocrinologyComment on above:TSH 2.13; trending upStart: 17-68-5330ilislcvxdwSchnidlKaryn Leroy MD Work Phone: [facility] EndocrinologyComment on above:August ApptsStart: 12-09-0627ykrrosfbusZK GIGI MICHELET .Facility:F1Emxpi: 07-07-2022 End: 33-48-1559snbqiacgooOA GIGI MICHELET .Facility:M3Cjiuz: 06-22-2022 End: 96-80-2477bzxovbwvptWGGVPX ELIAS ROSSFacility:A9Bnwwm: 06-10-2022 End: 11-45-7771tmhqdgglvtSA GIGI MICHELET .Facility:H5Yhbgq: 06-09-2022 End: 08-97-3929wzkrwyxflbKZTYHC ELIAS ROSSFacility:J5Dttoa: 05-31-2022 End: 33-40-3970itverwvrfeBlavjbjKaryn Leroy MD Work Phone: [facility]ocrinologyComment on above: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); Long-term current use of thyroid hormone replacement therapy; Elena's disease; Family history of thyroid diseaseStart: 05-31-2022 End: 55-02-2450Hxacdzwjttak consultation with Judy Leroy MD Work Phone: [facility] PBStart: 05-17-2022 End: 62-59-8693zjhzdpgwahXE GIGI MICHELET .Facility:I0Zcdmj: 41-55-4902Tnpiyotkf encounterJose Leroy MD Work Phone: [facility]ocrinologyComment on above:AppointmentStart: 56-32-0986rcournimicFemehscAlecia Leroy MD Work Phone: [facility]ocrinologyComment on above:Positive TestStart: 75-23-4626Vghofxzeo encounterJose Leroy MD Work Phone: [facility] EndocrinologyComment on above:AppointmentStart: 87-36-4354Gzklbsq tobacco non-user cad cap copd pv dm Lore Gardiner Work Phone: [phone]-FBUUP-[address] Work Phone: Start: 43-85-7541fbebucfvlgBg. 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)Lab Results Start: 04-14-2022 End: 49-22-8338Gjtmerr encounter procedureJose Leroy MD Work Phone: [facility] EndocrinologyComment on above: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); Long-term current use of thyroid hormone replacement therapy; Elena's disease; Family history of thyroid diseaseStart: 62-20-3427ltgtxohffjBvfhgmdKaryn Leroy MD Work Phone: [facility]ocrinologyComment on above:TSH 0.02Start: 02-15-2022 End: 66-05-8012Nmj Drop offSiván RoqueCate Rea [facility] Start: 02-15-2022 End: 66-10-3519Tuwagmz encounter procedureSmarticlara MyaCate Lucia [phone]-TedyjOur [facility] Of Mercy [facility] Start: 01-10-2022 End: 51-27-5467smfaogamkvZE GIGI TAFOYA .Facility:V2Hcdeh: 25-54-2675Obcubp Only Jose Leroy MD Work Phone: [facility] EndocrinologyComment on above: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Start: 10-29-2021 End: 76-35-4408ebarjpdnwdQxlzi FazioFacility:[facility] Start: 10-20-2021 End: 46-29-2701cdrjcpqfxfDjwxg FazioFacility:[facility] Start: 10-20-2021 End: 51-44-6602Mylozhe encounter procedureMD Chen Lucia Work Phone: [facility]-Lab Main CampusStart: 33-65-9074Rvshq abstractingJose Leroy MD Work Phone: [facility]ocrinologyComment on above:Abstract (Chart update)Start: 62-83-1191mayfdiuwatBitpmllKaryn Leroy MD Work Phone: [facility]ocrinologyComment on above:TSH 11Start: 10-13-2021 End: 22-59-1054wjznjgylkxFlcpb FazioFacility:[facility] Start: 10-13-2021 End: 24-93-1838Wbpctfl encounter procedureMD Chen Lucia Work Phone: [facility]-Lab Main CampusStart: 40-36-1490ayezpmwsgdPxdfimlAlecia Leroy MD Work Phone: [facility]ocrinologyComment on above:MiscarriageStart: 10-03-2021 End: 82-16-3591fboscedcfwRH MARCELL MAGANAFacility:H2Boabl: 97-90-9921mocdvkdcgrEM GIGI MICHELET .Facility:O8Kzxcm: 09-28-2021 End: 17-51-9394axausxtmysSribqld GrechnyFacility:[facility] Hospitaltart: 09-28-2021 End: 33-73-9964Zcrrfei encounter procedureMD Chen Lucia Work Phone: [facility]-Lab Main CampusStart: 09-28-2021 End: 66-29-1415gxfzslktgpKP TRI BERRIOSFacility:N0Gxqtb: 09-24-2021 End: 11-24-9696yscarletnhOhbznn E RossFacility:[facility] Start: 09-24-2021 End: 97-17-8461Atmbvwm encounter procedureMD Chen Lucia Work Phone: [facility]-Lab Main CampusStart: 09-22-2021 End: 70-88-2362Owhaaxh encounter procedureSiván Lucia [facility] Start: 09-22-2021 End: 80-84-0986Rwf Drop offSiván Lucia [facility] Start: 99-13-9199Sekmqqelena Leroy MD Work Phone: [facility]ocrinologyComment on above: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); Thyroid dysfunction in in first trimesterStart: 52-50-6357Ivtecralbert Leroy MD Work Phone: [facility] EndocrinologyComment on above: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)Lab Orders (Fax )Start: 07-20-2021 End: 15-80-5774Icylsfluh department patient visitNON STAFFFacility:[facility] Hospitaltart: 07-20-2021 End: 00-23-8808Yyddhhofs department patient visitBarnesville Hospital- Emergency RoomStart: 07-15-2021 End: 22-62-6126aatunjcxwjWAO STAFFFacility:[facility] Start: 07-15-2021 End: 01-48-8205Czekvcb encounter procedureBarnesville Hospital-Lab Main CampusStart: 07-14-2021 End: 59-46-5326muvzxbyyqvGdqoqnw Missler Other [email or web address] Other Start: 10-02-8401Ssfvzlq encounter procedureYenifer Leonard [facility] Care ClinicStart: 05-20-2021 End: 59-40-8701Paootnp encounter procedureJose Leroy MD Work Phone: [facility]ocrinologyComment on above: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); Long-term current use of thyroid hormone replacement therapy; Elena's disease; Family history of thyroid disease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)Start: 56-94-2908Blbdypvij encounterJose Leroy MD Work Phone: [facility]ocrinologyComment on above:Lab Orders (Mail to patient)Start: 05-03-2021 End: 75-09-6926nvtdqptytgLqwfntf Scally Other noShopular Other Start: 36-89-9892Ltoyrug encounter procedureAisha Hunter Coordinated Care ClinicStart: 02-25-2021 End: 78-54-4948gwpbzsbjchAUU STAFFFacility:[facility] Start: 02-16-2021([facility]) [facility] Ada VaccineDaLakeHealth [facility] Care [facility] Hospitaltart: 02-16-2021 End: 48-93-1983erwwaqlkgwPEO [facility] Dubb Other Start: 01-19-2021([facility] Vac) [facility] Eduardoid VaccineDaLakeHealth [facility]Point [facility] Care ClinicStart: 01-19-2021 End: 98-00-8422hlntclyypvKLL [facility] Dubb Other Start: 10-23-2020 End: 77-27-9411bzajokgbclPZFROLEK DILLON JR.[facility] AmbulatoryStart: 10-23-2020 End: 38-81-1032Drbdff outpatient visit 10 minutesJuan R Bhagat DPM Work Phone: [facility] PodiatryComment on above: Cellulitis of foot, right (Primary Dx)Start: 10-15-2020 End: 66-70-4973zgvdwkuidgKCQVPSVW DILLON JR.[facility] AmbulatoryStart: 10-15-2020 End: 31-43-9238Rhnvvh outpatient visit 15 minutesJegudelia Whitfieldn DPM Work Phone: [facility] PodiatryComment on above: Cellulitis of foot, right (Primary Dx); Foreign body (FB) in soft tissueStart: 10-02-2020 End: 48-89-9030sygeotzkitRFYFHYSV DILLON JR.[facility] AmbulatoryStart: 10-02-2020 End: 15-75-1214Xafvyb outpatient new 30 minutesJuan R Bhagat DPM Work Phone: [facility] PodiatryComment on above: Foreign body (FB) in soft tissue (Primary Dx); Acute foot pain, rightStart: 07-15-2020 End: 16-83-5003jxobcmgqyiYPADBAJSelect Medical [facility] Start: 07-15-2020 End: 61-85-8261Fxvlapdpyy hospital visit by physicianSTALISHA LaboratoryStart: 11-25-2019 End: 01-54-2756Dlvvfno encounter procedureHARPER COUNTY COMM[facility]PITAL – BUFFALOGISELA ACEVES [facility] Hospitaltart: 76-79-9182Pqlegwy encounter procedureKatjimy [facility] Work Phone: Start: 36-00-1923Qilnjfm encounter procedureKatjimy [facility] Work Phone: Start: 19-46-5480Gfmuelc encounter procedureLore [facility] Work Phone: Start: 04-85-4617Pjzpdig encounter procedureKatjimy [facility] Work Phone: Start: 09-08-2018 End: 98-19-2059sjsvidysuhZGZSYBDMarietta Memorial Hospital Procedures DateProcedureProcedure DetailPerforming ClinicianStart: 95-39-3123UNE,APTIMA HPV,AGE GDLNCorey Michelet DO Work Phone: Start: 27-14-3850Plcet depression screening assessment Dariela Aquino APRN-SUPERVISOR PRE WAVE Work Phone: Start: 50-45-2255Ldkfy of progesteroneCorey Michelet DO Work Phone: Start: 93-04-6700Tc breast uni real time with image completeCorey Michelet DO Work Phone: Start: 36-73-6130Vc breast uni real time with image completeCorey Michelet DO Work Phone: Start: 45-57-3844KY BREAST LT LIMITEDCorey Michelet DO Work Phone: Start: 96-04-2423Ki breast uni real time with image completeCorey Michelet DO Work Phone: Start: 66-89-8145Bphbvoid Mckinley Lucia Start: 68-08-3012AQ OB BPP W NON-STRESSCorey Michelet DO Work Phone: Start: 04-90-9164Wqowzisbdxj observation [Identifier] in Cervix by Cyto stainScanning ExternalStart: 56-31-0296Mexka foot complete minimum 3 viewsJeremiah Leola DPM Work Phone: start: 52-04-5485YHYH PREPJeremiah Leola DPM Work Phone: start: 45-29-7857NoqninwjieJuwrttgro A Longsdorf Work Phone: Start: 23-10-1821Pkuhvdpu procedure foot/toeLuana Lucia aerobic microbial cultureMD Chen Lucia Work Phone: End: 69-37-9444GqicjvsebmIxsdnwaeu [facility] HospitalOperative procedure on footCincinnati Va Medical Centermorgan [facility] Plan of Treatment DateCare ActivityDetailAuthorStart: 75-61-6044VKkM,Tdap and Td Vaccines (8 - Td or Tdap)DTaP,Tdap and Td Vaccines (8 - Td or Tdap)[facility] SystemStart: 29-64-7091Hkfaq microalbumin profileDTaP,Tdap,Td Vaccine (8 - Td or Tdap) [facility] Centertart: 08-16-1133Manchfz vaccinationTetanus: Every 10yrs PennsylvaniaHealthStart: 01-01-2026 End: 59-09-3272Dnvcawq encounter igqzwhsiz94/05/2026 4:00 PM EST Office Visit [facility] [address], [id number] Dariela Aquino, FIORELLA-SUPERVISOR PRE WAVE [address] [place] [address] [facility] MedicineStart: 33-33-5731Lsczr BMI ScreeningAdult BMI ScreeningProChildren'S Hospital [facility] SystemStart: 36-61-0813Xnmuaixyvi ScreeningDepression ScreeningProChildren'S Hospital [facility] SystemStart: 42-83-7965Dcaopni ScreeningTobacco ScreeningProChildren'S Hospital [facility] SystemStart: 25-55-2335Yayjf BMI ScreeningAdult BMI ScreeningProChildren'S Hospital Of [facility] SystemStart: 75-40-1973Iriiubn ScreeningTobacco ScreeningProChildren'S Hospital [facility] SystemStart: 03-18-2025 End: 78-04-6720Qmrxsvr encounter eydixyafk58/20/2026 2:30 PM EST Office Visit [facility] [address] [place] [address] Hilary Briscoe MD [address] [place] [address] [facility] EndocrinologyStart: 86-67-1424Ebqtxmzvo for malignant neoplasm of cervixProChildren'S Hospital Of [facility] SystemStart: 12-31-2024 End: 52-85-5448IHW W Auto Differential panel - BloodCBC auto differential Lab Routine Wellness examination Expected: 12/31/2024, Expires: 12/31/2025[facility] Work Phone: comment on above:Expected: 12/31/2024, Expires: 12/31/2025Start: 12-31-2024 End: 25-55-6093Orbrg 1996 panel - Serum or PlasmaLipid profile Lab Routine Wellness examination Expected: 12/31/2024, Expires: 12/31/2025ProChildren'S Hospital [facility] SystemComment on above:Expected: 12/31/2024, Expires: 12/31/2025Start: 12-31-2024 End: 17-68-3066Fublxgh encounter procedureNOMS BCP OBComment on above:Arrived Start: 12-16-2024 End: 98-00-6986Txphutm encounter wfylwncpr35/20/2025 3:10 PM EDT [facility] [address] [place] [address] Gigi Tafoya, [address] [place] [address] ArrivedTERE Swan OBGYNComment on above:ArrivedStart: 10-29-2024 End: 21-55-7491RNU with ReflexTSH with Reflex Lab Routine Autoimmune thyroiditis Expected: 10/29/2024 (Approximate), Expires: 07/29/2025[facility] Work Phone: comment on above:Expected: 10/29/2024 (Approximate), Expires: 07/29/2025Start: 51-83-2625TTODF-19 Vaccine ()COVID- 19 Vaccine ()[facility] SystemStart: 96-90-2708Ijyzbngyh vaccinationSelect Medical [facility] SystemStart: 09-12-2024 End: 61-28-4341XBU with ReflexTSH with Reflex Lab Routine Autoimmune thyroiditis Expected: 09/12/2024 (Approximate), Expires: 07/30/2025[facility] Work Phone: comment on above:Expected: 09/12/2024 (Approximate), Expires: 07/30/2025Start: 74-45-3044Ppnzelleg for malignant neoplasm of cervix HPV/CotestNOMS HealthcareStart: 03-20-2024 End: 41-99-2116Cdkflpw encounter dtnzjlebu17/22/2025 2:30 PM EST Office Visit [facility] [address] [place] [phone] Hilary Briscoe MD [address] [place] [address] [facility] EndocrinologyStart: 58-41-5265Tscxt BMI ScreeningAdult BMI ScreeningSelect Medical [facility] SystemStart: 01-57-1269Xqoibui ScreeningTobacco ScreeningProChildren'S Hospital [facility] SystemStart: 54-93-2334HIFJI-19 Vaccine ( season)COVID-19 Vaccine ( season)[facility] SystemStart: 75-74-6571Jgoygoedr vaccinationMercy Health St. Vincent Medical Centertart: 10-16-2023 End: 47-05-4106Gvzskny encounter ftqiqyswz55/19/2024 3:20 PM EDT Office Visit [facility] [address] [place] [phone] Gigi Tafoya, DO [address] [place] [address] ArrivedNOMS BCP OBComment on above:ArrivedStart: 08-14-2023 End: 52-57-3205Mhmsrnwrafe [Units/volume] in Serum or PlasmaTHYROID STIMULATING HORMONE Lab Routine 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 Expected: 07/28, Expires: 11/13/2023[facility] Work Phone: Comment on above:Expected: 08/14/2023, Expires: 11/13/2023Start: 08-14-2023 End: 31-14-5018Qqndcyrve (T4) free [Mass/volume] in Serum or PlasmaT4 FREE/FREE THYROXINE Lab Routine 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 Expected: 08/14/2023, Expires: 11/13/2023[facility] ClinicComment on above:Expected: 08/14/2023, Expires: 11/13/2023Start: 06-12-2023 End: 31-06-3622Xceysjdrejs [Units/volume] in Serum or PlasmaTHYROID STIMULATING HORMONE Lab Routine 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 Expected: 05/28, Expires: 09/11/2023[facility] Work Phone: Comment on above:Expected: 06/12/2023, Expires: 09/11/2023Start: 06-12-2023 End: 62-53-7094Ahdpvypaq (T4) free [Mass/volume] in Serum or PlasmaT4 FREE/FREE THYROXINE Lab Routine 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 Expected: 06/12/2023, Expires: 09/11/2023[facility] Work Phone: Comment on above:Expected: 06/12/2023, Expires: 09/11/2023Start: 06-12-2023 End: 63-52-2066Nsmtyygbkhodlovn (T3) Free [Mass/volume] in Serum or PlasmaT3, FREE Lab Routine 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 Expected: 06/12/2023, Expires: 09/11/2023[facility] Work Phone: Comment on above:Expected: 06/12/2023, Expires: 09/11/2023Start: 09-00-5312Ixqgekjsea Health ScreeningBehavioral Health ScreeningMercy Health St. Vincent Medical Centertart: 36-75-0222Eyztx-19 Vaccine () Covid-19 Vaccine ()[facility] Centertart: 76-40-9530Ebdncqtes vaccinationMercy Health St. Vincent Medical Centertart: 04-14-2022 End: 33-10-0975Tkzdlkalujb [Units/volume] in Serum or PlasmaTSH BLD Lab Routine 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 Expected: 04/14/2022, Expires: [facility] Work Phone: Comment on above:Expected: 04/14/2022, Expires: 06/14/2022Start: 04-14-2022 End: 67-56-6249Rfipltqox (T4) [Mass/volume] in Serum or PlasmaT4/THYROXINE BLOOD Lab Routine 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 Expected: 04/14/2022, Expires: 06/14/2022[facility] Work Phone: Comment on above:Expected: 04/14/2022, Expires: 06/14/2022Start: 04-14-2022 End: 24-41-2091Zvnawcwzm (T4) free [Mass/volume] in Serum or PlasmaT4 FREE/FREE THYROX Lab Routine 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 Expected: 04/14/2022,Expires: 06/14/2022[facility] Work Phone: Comment on above:Expected: 04/14/2022, Expires: 06/14/2022Start: 59-95-9055TAHYAUZPKW ASSESSMENTDEPRESSION ASSESSMENTMercy Health St. Vincent Medical Centertart: 10-29-2021 End: 82-87-0661Xxvujfv encounter procedureDepartSelect Medical [facility]tr[facility] CampusStart: 04-51-7346Ycpzkwxbu vaccinationINFLUENZA (#1) [facility] Centertart: 10-20-2021 End: 14-27-4610Mifokmt encounter procedureDepartSelect Medical [facility]tr[facility]Lab [facility] HospitalStart: 10-18-2021 End: 30-20-7428Qqvqbpxuswp [Units/volume] in Serum or PlasmaTSH BLD Lab Routine 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 Thyroid dysfunction in i n first trimester Expected: 10/18/2021, Expires: 12/18/2021[facility] Work Phone: Comment on above:Expected: 10/18/2021, Expires: 12/18/2021tart: 10-13-2021 End: 25-08-3449Mdyekrc encounter procedureDepartSelect Medical [facility]tr[facility]Lab [facility] HospitalStart: 09-16-2021 End: 35-65-2149Jewbttgmskb [Units/volume] in Serum or PlasmaTSH BLD Lab Routine 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 Expected: 09/16/2021, Expires: [facility] Work Phone: Comment on above:Expected: 09/16/2021, Expires: 11/16/2021tart: 09-16-2021 End: 50-09-5419Dsubgwngw (T4) free [Mass/volume] in Serum or PlasmaT4 FREE/FREE THYROX Lab Routine 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 Expected: 09/16/2021,Expires: 11/16/2021[facility] Work Phone: Comment on above:Expected: 09/16/2021, Expires: 11/16/2021tart: 07-20-2021 End: 70-85-6447Vbjprlpvayx [Units/volume] in Serum or [facility] BLD Lab Routine 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 Expected: 07/20/2021 (Approximate) , Expires: 2CMercy Health [facility] Hospital Work Phone: Comment on above:Expected: 07/20/2021 (Approximate), Expires: 09/19/2021tart: 26-98-0359NKO Vaccines (1 - 3-dose SCDM series)HPV Vaccines (1 - 3-dose SCDM series)[facility]Start: 05-20-2021 End: 59-80-7493U5 FREE BLDCMercy Health [facility] Hospital Work Phone: Comment on above:Expected: 05/20/2021, Expires: 07/20/2021tart: 05-20-2021 End: 78-26-5860P4 FREE/FREE THYROXCMercy Health Defiance Hospital Work Phone: Comment on above:Expected: 05/20/2021, Expires: 07/20/2021tart: 05-20-2021 End: 67-83-6590Pxcsfmuvdlg [Units/volume] in Serum or PlasmaHolmes County [facility] Work Phone: Comment on above:Expected: 05/20/2021, Expires: 07/20/2021tart: 05-20-2021 End: 91-84-1509Rktoiqysc (T4) [Mass/volume] in Serum or [facility] Work Phone: Comment on above:Expected: 05/20/2021, Expires: 07/20/2021tart: 08-99-1742SYLUR-19 VACCINE (3 - Booster for Moderna series) COVID-19 VACCINE (3 - Booster for Moderna series)[facility] Centertart: 22-53-4224XAEXY-19 VACCINE (3 - Moderna series)COVID-19 VACCINE (3 - Moderna series)[facility] Centertart: 46-86-0978QPDNW-19 VACCINE (3 - Moderna risk 4- dose series)COVID-19 VACCINE (3 - Moderna risk 4-dose series)[facility] Start: 39-86-6882HNNOQ-19 VACCINE (3 - Moderna risk series)COVID-19 VACCINE (3 - Moderna risk series)[facility] Centertart: 94-20-7251YQBGWSZLYX ASSESSMENT DEPRESSION ASSESSMENTMercy Health St. Vincent Medical Centertart: 54-88-0389Mlqkummmb vaccination [facility]Start: 10-23-2020 End: 41-26-1422Nxjhlof encounter leccamspz63/27/2021 Office Visit Podiatry Juan R Bhagat Jr., DONAL[address] [place] [address] [facility] PodiatryStart: 10-16-2020 End: 42-22-0931Fkqproa encounter /20/2021 Office Visit Podiatry Jaun R Bhagat Jr., DONALD [address] [place] [address] [phone] [facility] Physician [facility] PodiatryStart: 60-70-9232XFL TESTINGPAP TESTINGMercy Health St. Vincent Medical Centertart: 63-63-6668Lnegtikay for malignant neoplasm of cervixMercy Health St. Vincent Medical Centertart: 96-41-2591Ukjlmvelr B Vaccines (1 of 3 - 19+ 3-dose series)Hepatitis B Vaccines (1 of 3 - 19+ 3-dose series)[facility] HealthcareStart: 62-89-0364KIYFFXEL VACCINE (1 of 2)SHINGRIX VACCINE (1 of 2) [facility] Centertart: 37-89-8730Suczi microalbumin profileDTAP,TDAP,TD (1 - Tdap)[facility] Centertart: 05-50-6957WUPDIJ PCP TEAM CHRONIC DISEASE VISIT ANNUAL PCP TEAM CHRONIC DISEASE VISITMercy Health St. Vincent Medical Centertart: 31-35-4300Wivdarp ScreeningAnxiety ScreeningMercy Health St. Vincent Medical Centertart: 32-20-3009Nhsjblnjww Screening Depression ScreeningMercy Health St. Vincent Medical Centertart: 43-35-3086Ajjwspfmo C screening Hepatitis C ScreeningOhioHealthStart: 35-20-4247REVUUXRIW C SCREENINGHEPATITIS C SCREENINGMercy Health St. Vincent Medical Centertart: 57-12-3951BXD SCREENINGHIV SCREENINGMercy Health St. Vincent Medical Centertart: 74-96-4683CGG screeningHIV ScreeningMercy Health St. Vincent Medical Centertart: 70-58-0658XOH screeningHIV ScreeningOhioHealthStart: 65-17-8056PMJF TO ADULT TRANSITION ANNUAL ASSESSMENTPEDS TO ADULT TRANSITION ANNUAL ASSESSMENTMercy Health St. Vincent Medical Centertart: 82-03-7727Gvplwic of varicella vaccinationVaricella Vaccines (1 of 2 - 13+ 2-dose series)PRIMARY [facility] HealthcareStart: 26-97-8791NKKHF-19 Vaccine (1)COVID- 19 Vaccine (1)[place]HealthStart: 95-63-3162Vqjilbbnnu screening using PHQ-9 (Patient Health Questionnaire 9) scoreOhioHealthStart: 54-06-2227JZHZ TO ADULT TRANSITION INITIAL DISCUSSIONPEDS TO ADULT TRANSITION INITIAL DISCUSSION [facility]: 25-13-8158SKT VACCINE (1 - 2-dose series)HPV VACCINE (1 - 2-dose series)[facility]: 47-84-5110HBwK/Tdap/Td Vaccines (1 - Tdap) DTaP/Tdap/Td Vaccines (1 - Tdap)[facility] HealthcareStart: 04-45-2590KFWRUIPURIER (1 - PCV)PNEUMOCOCCAL (1 - PCV)[facility]: 89-77-8191Klkavhd and physical examination, annual for health maintenanceCarilion Clinic VisitOhioPromedica [facility] Start: 38-30-6003TJT Vaccines (1 of 1 - Standard series)MMR Vaccines (1 of 1 - Standard series)[facility] HealthcareStart: 89-01-5760PYHUNJGAN B (1 of 3 - 3-dose series)HEPATITIS B (1 of 3 - 3-dose series)[facility]: 1995 Screening for malignant neoplasm of cervixPap SmearOhioHealthStart: 1994 Tetanus vaccinationTetanus: Every 10yrsOhioHeal End: 72-88-0941Qgbgwgsbflsup metabolic 2000 panel - Serum or PlasmaComprehensive metabolic panel Lab Routine Wellness examination 1 Occurrences starting 12/31/2024 until 12/31/2025ProHarrison Community Hospitalca Health SystemComment on above:1 Occurrences starting 12/31/2024 until 12/31/2025ytology Cervical or vaginal smear or scraping studyPap Smear Pathology and Cytology Routine Well woman exam with routine gynecological exam Ordered: 12/31/2024[facility] [employer] Work Phone: comment on above:Ordered: 12/31/2024Human papilloma virus DNA [Presence] in Unspecified specimen by Probe with amplificationHPV DNA probe, amplified Microbiology Routine Well woman exam with routine gynecological exam Ordered: 12/31/2024[facility] HospitalComment on above:Ordered: 12/31/2024 Patient EducationConjunctivitis ([facility] Work Phone: Patient referralSelect [facility] Work Phone: Progesterone [Mass/volume] in Serum or PlasmaSelect Medical [facility]tr Work Phone: End: 53-91-8641Lrcavjaqezc TB GoldQuantiferon TB Gold Microbiology Routine Once for 1 Occurrences starting 07/15/2020 until 07/15/2020[facility] Work Phone: comment on above:Once for 1 Occurrences starting 07/15/2020 until 07/15/2020Quantiferon TB GoldQuantiferon TB Gold Microbiology Routine 07/15/2020 4:21 PM [facility]University [facility] Work Phone: End: 24-19-8941Zfmfzag profile includes TSH AO4Segspcq profile includes TSH FT4 Lab Routine Thyroid disease Elena's thyroiditis 1 Occurrences starting 03/20/2024 until 03/20/2025[facility] Work Phone: comment on above:1 Occurrences starting 03/20/2024 until 03/20/2025 End: 24-25-0495Qgzxvzzxc Zoster Antibody, IgGVaricella Zoster Antibody, IgG Lab Routine Once for 1 Occurrences starting 07/15/2020 until 07/15/2020Mer[facility] Work Phone: comlbey on above:Once for 1 Occurrences starting 07/15/2020 until 07/15/2020Varicella Zoster Antibody, IgGVaricella Zoster Antibody, IgG Lab Routine 07/15/2020 4:21 PM [facility] Work Phone: [facility] Immunizations Immunization DateImmunizationNotesCare RxoccnpiRysuyqhn41-53-4153mkzljlszu virus vaccine, unspecified formulationHilary Briscoe MD Work Phone: [facility] [employer] Kifiam29-82-8077vsifhnf toxoid, reduced diphtheria toxoid, and acellular pertussis vaccine, adsorbedSamuel Ross [phone]-YxgrvMemorial Health System [facility] 32-74-7157pepyqvxco virus vaccine, unspecified formulationSamclara Lucia [phone]-MvfcwOur Lady Of Mercy Hospital 33-44-7178VRCQT-19 [employer] Other noShopular Other [id number]-56 [employer] Other [employer] Other [id number] virus vaccine, unspecified formulationSiván Lucia [facility]08-11-2017tetanus toxoid, reduced diphtheria toxoid, and acellular pertussis vaccine, adsorbedSasue Lucia [facility]06-24-2013meningococcal ACWY vaccine, unspecified formulationSamclara Lucia [facility]07-23-2007tetanus toxoid, reduced diphtheria toxoid, and acellular pertussis vaccine, adsorbedSamujanell Lucia [facility]12-03-1999DTaP, unspecified formulationSiván Lucia [facility]12-03-1999measles, mumps and rubella virus vaccineSamclara Rea [facility]07-10-1996hepatitis B vaccine, adult dosageSiván Lucia [facility]07-10-1996measles, mumps and rubella virus vaccineSamclara Lucia [address] [place], [place] 3314610-02-1995DTaP, unspecified formulationSiván Lucia [address] [place], [place] 3314610-02-1995haemophilus influenzae type b vaccine, PRP-T conjugateSamclara Lucia [facility]08-04-1995DTaP, unspecified formulationSamclara Lucia [facility]08-04-1995haemophilus influenzae type b vaccine, PRP-T conjugateSiván Lucia [facility]06-08-1995DTaP, unspecified formulationSamclara Lucia [facility]06-08-1995haemophilus influenzae type b vaccine, PRP-T conjugateSiván Lucia [facility]05-11-1995hepatitis B vaccine, adult dosageSamclara Lucia [facility]04-11-1995hepatitis B vaccine, adult dosageSiván Lucia [address] [place] [address] Payers DatePayer CategoryPayerPolicy [id number] Care HMO (unspecified) [id number] [facility] - [place] Member Subscriber Plan / Payer (Effective 2021-Present) Name: Keysha Gardner ID: [id number] Relation to Subscriber: Self Name: Keysha Gardner Payer ID: Not on file Type: Not on file Address: [address] [place] [id number] MMO SUPERMED PLUS [id number] 2020-Present [phone] [address] [place] [address] [id number] [id number]17.315 13-87-6983Vidnseu1.2.840.106693.1.13.159.2.7.3.785907.68767-51-0843Tyfqrgh [id number] 2.16840.1.049285.3.57[id number] 2.840.1.344408.3.579.[id number] 2.840.1.235543.3.57[id number] 2.16840.1.768531.3.579.2.29660-54-8837Rbijqmp668967110 2.16840.1.788343.3.579.2.67745-35-9230Fpnqqbq5351330 2.16840.1.717404.3.579.2.35428-69-8017Xoumrel5375672 2.16840.1.902988.3.579.2.32197-15-2202Qnfpfyr1684186 2.16840.1.850332.3.579.2.54395-05-5150Jyumdoq3153623 2.16840.1.841015.3.579.2.70633-11-0117Fjqciwr4783805 2.16840.1.606356.3.579.2.87155-01-4195Gjjxmsk4523506 2.16840.1.336048.3.579.2.78229-26-1271Qmuuuvr9633803 2.16840.1.654421.3.579.2.99999-45-2521Htpfgrr3994208 2.840.1.487355.3.579.2.09428-10-1981Rjliurm4829251 2.840.1.025711.3.579.2.66057-92-0764Dudfazx3851927 2.840.1.714659.3.579.2.04784-32-3087Upvfxng188098582 2.840.1.626559.3.579.2.91065-68-6074Urjifqq75918929 2.840.1.068251.3.579.2.15191-86-8203Gswvkdk36065036 2.0.1.052093.3.579.2.34656-60-1901Etsxgml69551424 2.840.1.951272.3.579.2.92459-51-4723Hjnoalr54489720 2.0.1.538990.3.579.2.00198-38-9408Sniojev248606519 2.840.1.434637.3.579.2.768024-91-8203Qkdlcfa708884035 2.840.1.419336.3.579.2.968324-14-4628Nzfqwpj182503596 2.840.1.952554.3.579.2.850674-31-2381Bcryfpd348183570 2.840.1.007523.3.579.2.424301-61-4436Dkipmmh610484900 2.0.1.446997.3.579.2.869072-04-1436Xedonbl200494466 2.840.1.377479.3.579.2.797868-41-7292Zlcwqla249412670 2.0.1.256500.3.579.2.806431-83-4932Dwnqbot234066668 2.0.1.424865.3.579.2.711322-88-6270Phiebvv091128576 2..1.450010.3.579.2.369456-56-2951Ijlxens213549681 2..1.133755.3.579.2.975261-86-3345Ttzzmzx984387748 2..1.411339.3.579.2.393518-29-9388Lkfgizm558088176 2..1.699023.3.579.2.642505-30-6203Oeylblp280322855 2..1.079635.3.579.2.143393-51-3464Ihmeyzl84489650 2..1.656838.3.579.2.745111-30-6035Iqkfqus19795286 2..1.242828.3.579.2.188604-26-8292Uucv-omz vb253o6k-i0p9-30et-9i68-f71916ci497544-04-6171Nvurzcv638801282529 91833878-6p8d-98u2-07x4-l75r07nv59zx11-06-3151SlhsnkxI6770304080Krmbixs Health KwfuebtzqO00587087 4cx2r194-m371-1az4-014h-xngx1q846353Hpebqcbqqkvl7425 1.2.840.328478.1.13.385.2.7.3.064510.226SmfwohyB47836375Uivoygy71170019 2.16.840.1.340288.3.579.2.387Hpqwawv27595153 2.16.840.1.744348.3.579.2.531 Xkqjedm13183732 2.16.840.1.504630.3.579.2.825Qapsgnr55904501 2.16.840.1.805595.3.579.2.585Jhzbrue19236203 2.16.840.1.038145.3.579.2.531 Iopcewe12518701 2.16.840.1.430936.3.579.2.280Flomndr97401686 2.16.840.1.989550.3.579.2.197Hpewkzq90964603 2.16.840.1.475193.3.579.2.531 Awdqrct99774120 2.16.840.1.364978.3.579.2.350Rvrjmwn61669035 2.16.840.1.759364.3.579.2.531 Social History DateTypeDetailFacilityStart: 33-33-2053Ttm Assigned At BirthNot on [facility] [employer] Phone: start: 10-02-2020 End: 28-06-5074Dejsnzu smoking status NHISNever smokerOhioHealthStart: 10-02-2020 End: 16-70-1481Uedylud use and exposureNever usedOhioHealthStart: 10-02-2020 End: 48-19-3805Jojspun intakeCurrent drinker of alcohol (finding)[facility] Start: 08-63-6807Lpdbfjv Commentoccasional socialOhioHealthStart: 05-10-2021 End: 03-45-8482Vtthcofh to SARS-CoV-2 (event)Not sureOhioHealthStart: 05-20-2021 End: 08-48-2642Daxbthm intakeCurrent non-drinker of alcohol (finding)[facility]: 61-09-8926Wpx [facility]igned At [facility]: 09-20-2022 End: 09-43-8193Cyn Assigned At [facility] Care Thread Other Start: 09-20-2022 End: 64-58-9142Il alcohol useNo alcohol mmxPZ-KOXCM-Qyyauy 320 Work Phone: Start: 15-25-8947Glyivxmt Score (1-100), lower number is lower riskNot on fileMercy Health St. Vincent Medical Centertart: 20-81-6089Kzkvuv identity Identifies as female gender (finding)[facility]: 48-14-3516Cggjcp orientationHeterosexual (finding)[facility]: 01-23-2023 End: 29-02-5700Ckbemfbtx beverage intakeLifetime non-drinker (finding)[facility] HospitalStart: 10-25-2023 End: 41-04-3933Kmqogvlul beverage intakeEx-drinker (finding)[facility] SystemStart: 16-37-0746CtuBbpdxv (finding)[facility] SystemNEGATED: Highlighted row--[facility] Work Phone: NEGATED: Highlighted rowStart: NINFHistory of tobacco usePassive smokerProChildren'S [facility] Medical Equipment Procedure CodeEquipment CodeEquipment Original TextEquipment IdentifierDates Stent Inlay [place] 7fr Taper [place] Green Phreecoat Polymer 28cm Ureteral - [id number]: 04-28-2016 Functional Status TngxEzbllhzxikSagjqdKfsvgyhu09-66-3881Ownryhgydv StatusN/AFisher-[facility] WakemanNEGATED: Highlighted rowFunctional performance Functional status health issues are not documented DiseaseMercy Medical Center [facility] Work Phone: Mental Status DateAssessmentResultFacilityNEGATED: Highlighted rowCognitive function [Interpretation]Cognitive status health issues are not documented Disease- [facility] Work Phone: Clinical Notes 10-02-2020 to 12-31-2024 Note Date & PjkwEjqtIimxkmbk46-89-9323 History of Present illness Narrative* Krissy Ramos, PROGRESS MAN - 12/31/2024 10:30 AM EST Reason for Appointment: Patient ID: Keysha Gardner is a 29 y.o. female who presents for Well Women Visit Patient presents today for Annual Exam. MEDICATIONS Current Outpatient Medications Medication Instructions aspirin 81 mg, Daily folic acid-vit B6-vit B12 (Folbee) 2.5-25-1 MG tablet tablet 1 tablet, Daily RT levothyroxine (SYNTHROID, LEVOXYL) 175 mcg, Daily before breakfast metFORMIN XR (GLUCOPHAGE-XR) 500 mg, Oral, Daily with evening meal, Do not crush, chew, or split. 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/28/2016 Oligohydramnios ([facility]) 11/30/2022 6 weeks follow-up ([facility]) 01/17/2023 Amenorrhea 01/23/2024 Endometriosis 07/23/2024 Hyperthyroidism 07/23/2024 History of miscarriage 07/23/2024 Resolved Ambulatory Problems Diagnosis Date Noted Nausea/vomiting in ([facility]) 08/01/2022 Past Medical History: Diagnosis Date Asthma (HCC) Elena's disease Hormone imbalance Hypothyroid Menstrual irregularity Migraine Tachycardia Thyroid disease HISTORY PAST MEDICAL HISTORY SOCIAL HISTORY Past Medical History: Diagnosis Date Asthma (HCC) Elena's disease History of miscarriage Hormone imbalance [...] Constitutional: Appearance: Normal appearance. She is well-developed. Genitourinary: Vulva normal. Cardiovascular: Rate and Rhythm: Normal rate and [...] nursing note reviewed. Exam conducted with a swatch maker present. Vitals: Estimated body mass index is 24.79 kg/m as calculated from the following: Height as of 12/16/24: 5' 10 . Weight as of this encounter: 172 lb 12.8 oz. BP: 118/70 Patient's last menstrual period was 12/25/2024 (exact date). ASSESSMENT & PLAN ICD-10-CM 1. Well woman exam with routine gynecological exam Z01.419 Pap Smear HPV DNA probe, amplified 2. Elena's thyroiditis E06.3 3. History of miscarriage Z87.59 Orders Placed This Encounter Procedures HPV DNA probe, amplified Annual Wellness Exam: Patient presents today for routine annual exam. Patient states she has complaints of wanting to conceive, with next period will order HSG with Clomid 100mg. Patients vitals were reviewed and within normal limits. Growth and development is noted to be appropriate for age. Menstrual history is noted to be irregular with concerns reported. No mental health concerns was expressed. Pap Smear: Speculum was inserted into the vagina and pap was obtained without difficulty. HPV testing was performed per age guideline. Patient was advised that pap results could take anywhere from 7 to 10 days to receive and our office will reach out to the patient with those once we have them. Patient can also view results via [employer]. I reinforced importance of condom use for STI prevention. Patient declined cultures to be performed with today's visit. Breast Exam: Upon examination, clinical breast exam was noted to be normal. Patient was counseled on breast self-awareness, including the importance of knowing what is normal for her own breasts and promptly reporting any changes such as new lumps, skin dimpling, nipple discharge, or pain. Screening mammogram recommended annually beginning at age 40 or earlier if risk factors are present. Discussed signs and symptoms of breast cancer and when to seek medical attention. Answered all patient questions. Contraceptive Counseling (if applicable): Patient is currently using no control at this time as a form of contraceptive. Follow Up: Patient is to return to our office in one year for annual exam unless needed otherwise. Documented by Krissy Ramos LPN on behalf of: Jalyn Ayala PA-C documented in this encounterBarton County Memorial HospitalUhfwtyjqyh73-69-7183 History of Present illness Narrative* Dariela Aquino, FILM AND VIDEO GRAPHICS DESIGNER-SUPERVISOR PRE WAVE - 12/31/2024 8:00 AM EST Images from the original note were not included. [address] [facility] [id number] Subjective: Keysha Gardner is a 29 y.o. female who presents for an Annual Wellness exam. Patient presents to the office for routine wellness. Has history of POTS -has not had issues in years since gaining weight., hashimotos, migraines, PCOS. She is working with fertility clinic at [facility]. 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 Did see endocrinology at [facility] and did see our endocrinology group. 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/28/2016 Oligohydramnios ([facility]) 11/30/2022 6 weeks follow-up ([facility]) 01/17/2023 Amenorrhea 01/23/2024 Endometriosis 07/23/2024 Hyperthyroidism 07/23/2024 History of miscarriage 07/23/2024 Resolved Ambulatory Problems Diagnosis Date Noted Nausea/vomiting in ([facility]) 08/01/2022 Past Medical History: Diagnosis Date Asthma ([facility]) Elena's disease Hormone imbalance Hypothyroid Menstrual irregularity Migraine Tachycardia Thyroid disease HISTORY PAST MEDICAL HISTORY SOCIAL HISTORY Past Medical History: Diagnosis Date Asthma ([facility]) Elena's disease History of miscarriage Hormone imbalance [...] nursing note reviewed. Exam conducted with a swatch maker present. Vitals: Estimated body mass index is [...] of: Gigi Tafoya DO documented in this encounterBarton County Memorial HospitalQzvaaymrfz20-97-6696 History of Present illness Narrative* Waleska Arizmendi RN - 03/20/2024 2:30 PM EST Patient is here as a new patient consult for Dr Briscoe for referral PCOS and Elena's. Patient was previously seen at the [facility], but insurance no longer is accepted. [...] Briscoe MD - 03/20/2024 2:30 PM EST [facility]- PCOS Visit Keysha Gardner is a 28 y.o. with elena's thyroiditis and history of PCOS. The patient presents today to establish care. She was following for many years with endocrine at [facility] but her insurance no longer covers that provider. Elena's with thyroid nodule: She was diagnosed around 2000 at age 5. She followed with pediatric endo who started levothyroxine and followed thyroid US due to lump in her neck. No biopsies needed. She began following in [address] Langford with [facility]. Levothyroxine varied between 137 and 175 [...] 01/26/2023 Performed by Jose Washington DO at [facility] Right 2017 UPJ obstruction [...] . Follow up annually HILARY BRISCOE MD [facility] documented in this encounterAvita Health System [facility] [employer] [id number] Evaluation + Plan note Diagnostic Tests Pending * CBC w/ Auto Diff 01/15/24 * Comprehensive Metabolic Panel 01/15/24 * Lipid Panel 01/15/24 [facility] 08-19-2024 History of Present illness Narrative* Gigi [...] 08/31/2022 Hyperemesis gravidarum 04/27/2022 Hypothyroidism due to Elnea's thyroiditis (CMS/HCC) 08/31/2022 Right flank pain 09/26/2014 [...] nursing note reviewed. Exam conducted with a swatch maker present. Vitals: Estimated body mass index is [...] 81mg daily. 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 Increased synthroid to 200mcg daily. Documented by Wendi Gandhi LPN on behalf of: Gigi Tafoya DO documented in this encounterBarton County Memorial HospitalBpukqwzzzg53-89-9570 NoteHNO ID: [id number] Author: JOSE LEROY MD Service: ? Author Type: Physician Type: Progress Notes Filed: 07/12/2023 15:23 Note Text: . [facility] General Endocrinology - [place] [address] [place] [address], [address] [place], [place] [address] [place] [address] General Endocrinology - [address], [address] [place], [place] [address] Patient's name: Keysha Gardner Patient's date of : 1995 Date of encounter: 06/12/2023 History of present illness: Keysha Gardner is a 28 year old female who presents for follow up of an endocrinology issue. Thyroid gland disorder: Previous history: 2000: Around this time, age ~5 (first grade) was found to have hypothyroidism. Per patient, grinder outside diameter felt lump in neck . 2000: Ultrasound of thyroid, at outside hospital: I dont have this to review. 2001: Told Hashimotos thyroiditis . Started on a dose of levothyroxine. 3152-2085: Followed by pediatric endocrinology. Multiple ultrasound studies. [...] per week, mean dose 161 mcg. 05/2020: [facility] Ultrasound: Right lobe 48.9 x 12.0 x [...] to levothyroxine 200 mcg (more content not included)...[facility]04-15-2024 Instructions* Patient Instructions* Jose Leroy MD - [...] pills the next day. documented in this encounterFort Hamilton Hospital04-15-2024 History of Present illness Narrative* Jose Leroy MD - 06/12/2023 9:02 AM EDT Images from the original note were not included. . [facility] Endocr[facility]ology [facility] [place] [address] [place] [address], [address] [place], [place] [address] [place] [address] General Endocrinology - [address], [address] [place] [address] Patient's name: Keysha Gardner Patient's date of : 1995 Date of encounter: 06/12/2023 History of present illness: Keysha Gardner is a 28 year old female who presents for follow up of an endocrinology issue. Thyroid gland disorder: Previous history: 2000: Around this time, age ~5 (first grade) was found to have hypothyroidism. Per patient, grinder outside diameter felt lump in neck . 2000: Ultrasound of thyroid, at outside hospital: I dont have this to review. 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 Started on a dose of levothyroxine. 7295-2293: Followed by pediatric endocrinology. Multiple ultrasound studies. [...] per week, mean dose 161 mcg. 05/2020: [facility] Ultrasound: Right lobe 48.9 x 12.0 x [...] mIU/L), free T4 2.08 (0.58-1.64 ng/dL), at [facility]. I reduced her to levothyroxine [...] Biotin use (vitamin B-7) : Use of idyf-ptg-iwikdxg, high dose, biotin supplement: None. Use of Cpwj-Xwam-Gyow vitamins, or similar formulation with high-dose biotin: None. Use of B-complex vitamin preparations with high-dose biotin: None. Use of qagv-tin-zomyzgj leave-in hair conditioners that contain biotin: None. Pre-brian vitamin has 30 mcg . Other endocrine history: 05/2015: random glucose 85 mg/dL, 05/2016: HbA1c 5.2% at outside lab. 06/18/2016: plasma fractionated metanephrine 20 (0-62 pg/mL), normetanephrine 38 (0-145 pg/mL), Allergies, medications, medical and surgical history, family history and social history, and problem list reviewed. Preferred pharmacy for the medications I prescribe (or may prescribe) is: [facility]/pharmacy #[id number] [place] [address] - [address] - [phone] Review of Systems Review of Systems Constitutional: [...] medications I prescribe (or may prescribe) is: [facility]/pharmacy #[id number] [place] [address] - [address] [facility] [phone] She will do her labs at her [facility] location due to insurance. - THYROID STIMULATING HORMONE; Future - T4 FREE/FREE THYROXINE; Future - T3, FREE; Future 2. Encounter for medication management Levothyroxine 3. Long-term current use of levothyroxine Levothyroxine. I reviewed the proper use of levothyroxine products. The patient is doing proper administration of levothyroxine. 4. Elena's disease 5. Family history of thyroid disease Jose Leroy MD [facility] - [place] documented in this encounterFort Hamilton Hospital07-26-2023 Miscellaneous Notes* Telephone Encounter - Kareen [...] in Jose Leroy MD documented in this encounterFort [facility]07-[facility]23 NoteHNO ID: [id number] Author: Jose Leroy MD Service: ? Author Type: Physician Type: Progress Notes Filed: 09/20/2022 4:36 PM Note Text: . [facility] [place] [address], [address] [place], [place] [id number] [place] [address] Endocrinology - [address], [address] [place], [place] [address] Patient's name: Keysha Gardner Patient's date of [...] was found to have hypothyroidism. Per patient, grinder outside diameter felt lump in neck . 2001: Ultrasound of thyroid, at outside hospital: I dont have this to review. 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 Started on a dose of levothyroxine. 9913-5735: Followed by pediatric endocrinology. Multiple ultrasound studies. [...] uIU/mL), free T4 2.1 (more content not included)...[facility]04-04-2023 History of Present illness Narrative* Jose Leroy MD - 05/31/2022 3:38 PM EDT Images from the original note were not included. . [facility] [place] [address], [address] [place], [place] [id number] [place] [address] Endocrinology - [address], [address] [place], [place] [address] Patient's name: Keysha Hampton Jj Patient's date of : 1995 Date of [...] was found to have hypothyroidism. Per patient, grinder outside diameter felt lump in neck . 2000: Ultrasound of thyroid, at outside hospital: I dont have this to review. 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 Started on a dose of levothyroxine. 8455-3797: Followed by pediatric endocrinology. Multiple ultrasound studies. [...] per week, mean dose 161 mcg. 05/2020: Beet Topper Ultrasound: Right lobe 48.9 x 12.0 x [...] mIU/L), free T4 2.08 (0.58-1.64 ng/dL), at [facility]. I reduced her to levothyroxine [...] Biotin use (vitamin B-7) : Use of yjwd-fgk-dgtccvx, high dose, biotin supplement: None. Use of Zcaq-Ytmf-Dbid vitamins, or similar formulation with high-dose biotin: None. Use of B-complex vitamin preparations with high-dose biotin: None. Use of ppfk-tri-msbnsuy leave-in hair conditioners that contain biotin: None. Other endocrine history: 05/2015: random glucose 85 mg/dL, 05/2016: HbA1c 5.2% at outside lab. 06/18/2016: plasma fractionated metanephrine 20 (0-62 pg/mL), normetanephrine 38 (0-145 pg/mL), Allergies, medications, medical and surgical history, family history and social history, and problem list reviewed. Preferred pharmacy for the medications I prescribe (or may prescribe) is: [facility]/pharmacy #[id number] [place] [address] - [address] [facility] [phone] Review of Systems Review of Systems [...] performed by enabled technology. Jose Leroy MD [facility] [place] documented in this encounterFort Hamilton Hospital03-17-2023 Miscellaneous Notes* Telephone Encounter - Kareen Vasquez - 05/13/2022 2:05 PM EDT I have sent a msg to eben Leroy regarding this virtual ov on asking if BOV acceptable Kareen Vasquez May 13, 2022 2:06 PM * Telephone Encounter - Liaz Hernandez MA - 05/13/2022 1:06 PM EDT [...] the call/escalation: Message Was Patient Referred to 911/Seek Emergency Treatment (Y/N): n Did Patient Agree (Y/N): n Was An Attempt Made To Transfer The Patient To The Office (Y/N): n Were You Able To Reach Someone At The Office (Y/N): n If Yes - Patient Was Transferred To (Caregivers Name): n If No - Which [facility] Leadership Embedded Software Engineer Did You Speak With Regarding This Patient: [...] other than patient: no Best contact number: [phone] Thank you, India Schneider May 13, 2022 12:50 PM documented in this encounterFort Hamilton Hospital03-16-2023 Miscellaneous Notes* Telephone Encounter - Ekaterina [...] slot. Jose Leroy MD documented in this encounterFort Hamilton Hospital02-20-2023 Miscellaneous Notes* Telephone Encounter - Liza Hernandez MA - 04/18/2022 2:25 PM EST Images from the original note were not included. [email or web address] Outside Information Contains abnormal data T4, free Specimen: PLASMA Component Ref Range & Units 4 d ago T4, free 0.61 - 1.60 ng/dL 1.96 High Resulting Agency [facility] Specimen Collected: 04/14/22 12:11 PM Last Resulted: 04/14/22 2:59 PM Received From: [email or web address] Result Received: 04/18/22 2:32 PM View Encounter [email or web address] Outside Information Contains abnormal dataTSH Specimen: PLASMA Component Ref Range & Units 4 d ago TSH 0.49 - 4.67 uIU/mL 0.12 Low Resulting Agency [facility] Specimen Collected: 04/14/22 12:11 PM Last Resulted: 04/14/22 2:57 PM Received From: [email or web address] Result Received: 04/18/22 2:32 PM View Encounter Recent Data from [email or web address] Related to TSH Component 04/14/22 12/11/21 TSH 0.12 Low 0.03 Low documented in this encounterFort Hamilton Hospital02-16-2023 Instructions* Patient Instructions* Jose Leroy MD [...] pills the next day. documented in this encounterFort Hamilton Hospital02-16-2023 History of Present illness Narrative* Jose Leroy MD - 04/14/2022 8:19 AM EST Images from the original note were not included. . [facility] [place] [address], [address] [place], [place] [id number] [place] [address] Endocrinology - [address], [address] [place] [address] Patient's name: Keysha Gardner Patient's date of : 1995 Date of encounter: 04/14/2022 History of present illness: Keysha Gardner is a 26 year old female who presents for follow up of an endocrinology issue. Thyroid gland disorder: Previous history: 2000: Around this time, age ~5 (first grade) was found to have hypothyroidism. Per patient, grinder outside diameter felt lump in neck . 2000: Ultrasound of thyroid, at outside hospital: I dont have this to review. 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 Started on a dose of levothyroxine. 1350-9356: Followed by pediatric endocrinology. Multiple ultrasound studies. [...] per week, mean dose 161 mcg. 05/2020: Beet Topper Ultrasound: Right lobe 48.9 x 12.0 x [...] mIU/L), free T4 2.08 (0.58-1.64 ng/dL), at [facility]. I reduced her to levothyroxine [...] Biotin use (vitamin B-7) : Use of bzef-pbq-pcznbwk, high dose, biotin supplement: None. Use of Hzok-Joxs-Ffmr vitamins, or similar formulation with high-dose biotin: None. Use of B-complex vitamin preparations with high-dose biotin: None. Use of mukx-uey-bgxkjld leave-in hair conditioners that contain biotin: None. Pre- vitamin only. Other endocrine history: 05/2015: random glucose 85 mg/dL, 05/2016: HbA1c 5.2% at outside lab. 06/18/2016: plasma fractionated metanephrine 20 (0-62 pg/mL), normetanephrine 38 (0-145 pg/mL), Allergies, medications, medical and surgical history, family history and social history, and problem list reviewed. Preferred pharmacy for the medications I prescribe (or may prescribe) is: [facility]/pharmacy #[id number] - [place] [address] - [address] [facility] [facility] [phone] Review of Systems Review of Systems Constitutional: [...] an electronic prescription to local pharmacy in day supplies, once data reviewed. Preferred pharmacy for the medications I prescribe (or may prescribe) is: [facility]/pharmacy #[id number] [place] [address] [address] [facility] - [phone] - TSH BLD; Future - T4 FREE/FREE THYROX; Future - T4/THYROXINE BLOOD; Future 2. Long-term current use of thyroid hormone replacement therapy Levothyroxine I reviewed the use of levothyroxine products. Takes properly 3. Elena's disease Treat with levothyroxine 4. Family history of thyroid disease Jose Leroy MD [facility] - [place] documented in this encounterFort Hamilton Hospital01-04-2023 Miscellaneous Notes* Telephone Encounter - Jose [...] mIU/L), free T4 2.08 (0.58-1.64 ng/dL), at [facility]. This was while on levothyroxine [...] history of thyroid disease Jose Leroy MD [facility] - [place] This patient gave consent to this Medical [...] seven days of my reply. See the [employer] message reply for my assessment and plan. I spent a total of 9 minutes reviewing the patient's prior medical records and current request for medical advice, prescribing medications or ordering tests (if applicable), replying to the patient, and documenting the encounter. documented in this encounterFort Hamilton Hospital12-20-2022 Hospital Discharge instructions Patient Education 02/15/2022 [...] height. This can be done either in [place]ic ([place] or metric measurements. Note that charts are available to help you find your BMI quickly and easily without having to do these calculations yourself. To calculate your BMI in [place]ic ([place] measurements, your health care provider will: [...] medical problems. BMI can be measured using Green[place]ic measurements or metric measurements. To interpret your [...] 10/25/2004 Document Revised: 01/26/2018 Document Reviewed: 12/27/2017 [employer] Patient Education [employer]match. [facility] [place] 12-20-2022 Evaluation + Plan note Diagnostic Tests Pending * CBC w/ Auto Diff 02/15/22 * Comprehensive Metabolic Panel 02/15/22 * Lipid Panel 02/15/22 * TSH With T4fr Reflex 02/15/22 [facility]08-23-2022 History of Present illness Narrative* Jose Leroy MD - 10/19/2021 5:51 PM EDT Note: The following is an abstracted note of the either a previous or a new History of Present Illness. This is in prep for an up-coming appointment or a summary update of a disease state. This is not a zodw-sy-kvlf encounter. Previous history as follows: Thyroid gland disorder: Previous history: 2000: Around this time, age ~5 (first grade) was found to have hypothyroidism. Per patient, grinder outside diameter felt lump in neck . 2000: Ultrasound of thyroid, at outside hospital: I dont have this to review. 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 Started on a dose of levothyroxine. 6981-6456: Followed by pediatric endocrinology. Multiple ultrasound studies. [...] per week, mean dose 161 mcg. 05/2020: Beet Topper Ultrasound: Right lobe 48.9 x 12.0 x [...] normetanephrine 38 (0-145 pg/mL), documented in this encounterFort Hamilton Hospital07-21-2022 Miscellaneous Notes* Telephone Encounter - Ekaterina [...] fax those to her local lab in [facility] She is good with MyChart Jose Leroy MD documented in this encounterFort Hamilton Hospital05-18-2022 Evaluation note* Encounter Date Diagnosis Assessment [...] understanding and agrees with plan of care. [facility] Other 03-25-2022 Miscellaneous Notes* Telephone Encounter - Kareen Vasquez - 05/21/2021 8:41 AM EDT Done Kareen Vasquez May 21, 2021 8:41 AM * Telephone Encounter - Jose Leroy MD - 05/20/2021 5:05 PM EDT Lab order on front printer [place]. TSH Mail to patient. Jose Leroy MD documented in this encounterFort Hamilton Hospital03-24-2022 History of Past illness Narrative* ProblemNoted DateResolved DateGoiter, odraqcf6805/20/2021 Overview: 2000: Around this time, age ~5 (first grade) was found to have hypothyroidism. Per patient, pediatricia felt lump in neck . 2000: Ultrasound of thyroid, at outside hospital: I dont have this to review. 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 Started on a dose of levothyroxine. 3619-8359: Followed by pediatric endocrinology. Multiple ultrasound studies. [...] ng/dL), on levothyroxine 150 mcg daily. Elena's aneekdr6105/20/2021 Overview: dignosed at age 4 Diwkryuitufrkv32/24/2022documented as of this encounter (statuses as of 05/20/2021) [facility] of Past illness Narrative* ProblemNoted Date Resolved DateGoiter, dgwhxyq0905/20/2021 Overview: 2000: Around this time, age ~5 (first grade) was found to have hypothyroidism. Per patient, pediatricia felt lump in neck . 2000: Ultrasound of thyroid, at outside hospital: I dont have this to review. 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 Started on a dose of levothyroxine. 3574-5798: Followed by pediatric endocrinology. Multiple ultrasound studies. [...] ng/dL), on levothyroxine 150 mcg daily. Elena's nkeasox7905/20/2021 Overview: dignosed at age 4 Dfiuxutsdbiefr24/24/2022documented as of this encounter (statuses as of 05/20/2021) [facility] of Past illness Narrative* ProblemNoted Date Resolved DateGoiter, bcrtwka0505/20/2021 Overview: 2000: Around this time, age ~5 (first grade) was found to have hypothyroidism. Per patient, pediatricia felt lump in neck . 2000: Ultrasound of thyroid, at outside hospital: I dont have this to review. 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 Started on a dose of levothyroxine. 3845-1825: Followed by pediatric endocrinology. Multiple ultrasound studies. [...] ng/dL), on levothyroxine 150 mcg daily. Elena's cadnymg2805/20/2021 Overview: dignosed at age 4 Aeoiujtbndhbte20/24/2022documented as of this encounter (statuses as of 05/21/2021) [facility] of Past illness Narrative* ProblemNoted Date Resolved DateGoiter, sixtwny2305/20/2021 Overview: 2000: Around this time, age ~5 (first grade) was found to have hypothyroidism. Per patient, pediatricia felt lump in neck . 2000: Ultrasound of thyroid, at outside hospital: I dont have this to review. 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 Started on a dose of levothyroxine. 4097-4844: Followed by pediatric endocrinology. Multiple ultrasound studies. [...] ng/dL), on levothyroxine 150 mcg daily. Elena's awfejgh9405/20/2021 Overview: dignosed at age 4 Wwsiczmbrjnily47/24/2022documented as of this encounter (statuses as of 09/16/2021) [facility] of Past illness Narrative* ProblemNoted Date Resolved DateGoiter, pguolpp3205/20/2021 Overview: 2000: Around this time, age ~5 (first grade) was found to have hypothyroidism. Per patient, pediatricia felt lump in neck . 2000: Ultrasound of thyroid, at outside hospital: I dont have this to review. 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 Started on a dose of levothyroxine. 3173-3491: Followed by pediatric endocrinology. Multiple ultrasound studies. [...] ng/dL), on levothyroxine 150 mcg daily. Elena's xtdbqzg5705/20/2021 Overview: dignosed at age 4 Elrrgafgpdnovp57/24/2022documented as of this encounter (statuses as of 09/16/2021) [facility] of Past illness Narrative* ProblemNoted Date Resolved DateGoiter, dfeqswk8205/20/2021 Overview: 2000: Around this time, age ~5 (first grade) was found to have hypothyroidism. Per patient, pediatricia felt lump in neck . 2000: Ultrasound of thyroid, at outside hospital: I dont have this to review. 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 Started on a dose of levothyroxine. 0529-7917: Followed by pediatric endocrinology. Multiple ultrasound studies. [...] ng/dL), on levothyroxine 150 mcg daily. Elena's kedvgwa8205/20/2021 Overview: dignosed at age 4 Yrtagiycbzhcxf66/24/2022documented as of this encounter (statuses as of 09/17/2021) [facility] of Past illness Narrative* ProblemNoted Date Resolved DateGoiter, aglygnr2705/20/2021 Overview: 2000: Around this time, age ~5 (first grade) was found to have hypothyroidism. Per patient, pediatricia felt lump in neck . 2000: Ultrasound of thyroid, at outside hospital: I dont have this to review. 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 Started on a dose of levothyroxine. 4303-4345: Followed by pediatric endocrinology. Multiple ultrasound studies. [...] ng/dL), on levothyroxine 150 mcg daily. Elena's tsnokzv2005/20/2021 Overview: dignosed at age 4 Wbkgettalsnhby34/24/2022documented as of this encounter (statuses as of 10/04/2021) [facility] of Past illness Narrative* ProblemNoted Date Resolved DateGoiter, thuzywd1105/20/2021 Overview: 2000: Around this time, age ~5 (first grade) was found to have hypothyroidism. Per patient, pediatricia felt lump in neck . 2000: Ultrasound of thyroid, at outside hospital: I dont have this to review. 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 Started on a dose of levothyroxine. 6401-2077: Followed by pediatric endocrinology. Multiple ultrasound studies. [...] ng/dL), on levothyroxine 150 mcg daily. Elena's ukfeimz8505/20/2021 Overview: dignosed at age 4 Tamzptjzsusjyw96/24/2022documented as of this encounter (statuses as of 10/19/2021) [facility] of Past illness Narrative* ProblemNoted Date Resolved DateGoiter, yeygjkw9905/20/2021 Overview: 2000: Around this time, age ~5 (first grade) was found to have hypothyroidism. Per patient, pediatricia felt lump in neck . 2000: Ultrasound of thyroid, at outside hospital: I dont have this to review. 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 Started on a dose of levothyroxine. 8931-6769: Followed by pediatric endocrinology. Multiple ultrasound studies. [...] ng/dL), on levothyroxine 150 mcg daily. Elena's fxnbpko7405/20/2021 Overview: dignosed at age 4 Bjdofcrnbshxco12/24/2022documented as of this encounter (statuses as of 10/19/2021) [facility] of Past illness Narrative* ProblemNoted Date Resolved DateGoiter, iptvcmk6905/20/2021 Overview: 2000: Around this time, age ~5 (first grade) was found to have hypothyroidism. Per patient, pediatricia felt lump in neck . 2000: Ultrasound of thyroid, at outside hospital: I dont have this to review. 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 Started on a dose of levothyroxine. 8419-5314: Followed by pediatric endocrinology. Multiple ultrasound studies. [...] ng/dL), on levothyroxine 150 mcg daily. Elena's sorqaeh2805/20/2021 Overview: dignosed at age 4 Pdwqgvjvkdfihf09/24/2022documented as of this encounter (statuses as of 12/31/2021) [facility] of [facility] illness Narrative* ProblemNoted Date Resolved DateGoiter, xjmvdeu8305/20/2021 Overview: 2000: Around this time, age ~5 (first grade) was found to have hypothyroidism. Per patient, pediatricia felt lump in neck . 2000: Ultrasound of thyroid, at outside hospital: I dont have this to review. 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 Started on a dose of levothyroxine. 8351-7002: Followed by pediatric endocrinology. Multiple ultrasound studies. [...] ng/dL), on levothyroxine 150 mcg daily. Elena's gjkrmnp4405/20/2021 Overview: dignosed at age 4 Rwbzmcrkaxrild72/24/2022documented as of this encounter (statuses as of 03/03/2022) [facility] of [facility] illness Narrative* ProblemNoted Date Resolved DateGoiter, jfzjayx7605/20/2021 Overview: 2000: Around this time, age ~5 (first grade) was found to have hypothyroidism. Per patient, pediatricia felt lump in neck . 2000: Ultrasound of thyroid, at outside hospital: I dont have this to review. 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 Started on a dose of levothyroxine. 5326-0127: Followed by pediatric endocrinology. Multiple ultrasound studies. [...] ng/dL), on levothyroxine 150 mcg daily. Elena's pohqkmu0305/20/2021 Overview: dignosed at age 4 Rhvkvwforjwvww98/24/2022documented as of this encounter (statuses as of 04/14/2022) [facility] Narrative* ProblemNoted Date Resolved DateGoiter, ufuacos3305/20/2021 Overview: 2000: Around this time, age ~5 (first grade) was found to have hypothyroidism. Per patient, pediatricia felt lump in neck . 2000: Ultrasound of thyroid, at outside hospital: I dont have this to review. 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 Started on a dose of levothyroxine. 5384-2908: Followed by pediatric endocrinology. Multiple ultrasound studies. [...] ng/dL), on levothyroxine 150 mcg daily. Elena's ygduriv6505/20/2021 Overview: dignosed at age 4 Gfgwquxlspvhth88/24/2022documented as of this encounter (statuses as of 04/18/2022) [facility] Narrative* ProblemNoted Date Resolved DateGoiter, gbyqjpg9805/20/2021 Overview: 2000: Around this time, age ~5 (first grade) was found to have hypothyroidism. Per patient, pediatricia felt lump in neck . 2000: Ultrasound of thyroid, at outside hospital: I dont have this to review. 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 Started on a dose of levothyroxine. 3302-9569: Followed by pediatric endocrinology. Multiple ultrasound studies. [...] ng/dL), on levothyroxine 150 mcg daily. Elena's hsoctnq2605/20/2021 Overview: dignosed at age 4 Njmjtainrklfde95/24/2022documented as of this encounter (statuses as of 04/18/2022) [facility] Narrative* ProblemNoted Date Resolved DateGoiter, irixmmj5705/20/2021 Overview: 2000: Around this time, age ~5 (first grade) was found to have hypothyroidism. Per patient, pediatricia felt lump in neck . 2000: Ultrasound of thyroid, at outside hospital: I dont have this to review. 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 Started on a dose of levothyroxine. 7608-7515: Followed by pediatric endocrinology. Multiple ultrasound studies. [...] ng/dL), on levothyroxine 150 mcg daily. Elena's gbknldv5505/20/2021 Overview: dignosed at age 4 Ivswrjyohtpqnb84/24/2022documented as of this encounter (statuses as of 05/11/2022) [facility] Narrative* ProblemNoted Date Resolved DateGoiter, osusfzm3505/20/2021 Overview: 2000: Around this time, age ~5 (first grade) was found to have hypothyroidism. Per patient, pediatricia felt lump in neck . 2000: Ultrasound of thyroid, at outside hospital: I dont have this to review. 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 Started on a dose of levothyroxine. 9882-0949: Followed by pediatric endocrinology. Multiple ultrasound studies. [...] ng/dL), on levothyroxine 150 mcg daily. Elena's gdyxhyv7205/20/2021 Overview: dignosed at age 4 Yiijbbbgtmvldf39/24/2022documented as of this encounter (statuses as of 05/12/2022) [facility] Narrative* ProblemNoted Date Resolved DateGoiter, doxkbdf2205/20/2021 Overview: 2000: Around this time, age ~5 (first grade) was found to have hypothyroidism. Per patient, pediatricia felt lump in neck . 2000: Ultrasound of thyroid, at outside hospital: I dont have this to review. 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 Started on a dose of levothyroxine. 5296-8679: Followed by pediatric endocrinology. Multiple ultrasound studies. [...] ng/dL), on levothyroxine 150 mcg daily. Elena's bejidmc7305/20/2021 Overview: dignosed at age 4 Gxihrjqrkgtzye44/24/2022documented as of this encounter (statuses as of 05/13/2022) [facility] Narrative* ProblemNoted Date Resolved DateGoiter, rpmnmwz9305/20/2021 Overview: 2000: Around this time, age ~5 (first grade) was found to have hypothyroidism. Per patient, pediatricia felt lump in neck . 2000: Ultrasound of thyroid, at outside hospital: I dont have this to review. 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 Started on a dose of levothyroxine. 6364-8330: Followed by pediatric endocrinology. Multiple ultrasound studies. [...] ng/dL), on levothyroxine 150 mcg daily. Elena's kqollei1705/20/2021 Overview: dignosed at age 4 Keoptmyydervxd16/24/2022documented as of this encounter (statuses as of 06/01/2022) [facility] Narrative* ProblemNoted Date Resolved DateGoiter, bgmqyrs4405/20/2021 Overview: 2000: Around this time, age ~5 (first grade) was found to have hypothyroidism. Per patient, pediatricia felt lump in neck . 2000: Ultrasound of thyroid, at outside hospital: I dont have this to review. 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 Started on a dose of levothyroxine. 6472-6437: Followed by pediatric endocrinology. Multiple ultrasound studies. [...] ng/dL), on levothyroxine 150 mcg daily. Elena's nsuytho0305/20/2021 Overview: dignosed at age 4 Yqbizyaqvouuvg03/24/2022documented as of this encounter (statuses as of 07/29/2022) [facility] Narrative* ProblemNoted Date Resolved DateGoiter, xdhqgji7505/20/2021 Overview: 2000: Around this time, age ~5 (first grade) was found to have hypothyroidism. Per patient, pediatricia felt lump in neck . 2000: Ultrasound of thyroid, at outside hospital: I dont have this to review. 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 Started on a dose of levothyroxine. 3484-7304: Followed by pediatric endocrinology. Multiple ultrasound studies. [...] ng/dL), on levothyroxine 150 mcg daily. Elena's mricygx3005/20/2021 Overview: dignosed at age 4 Zzyjrlxntpmqhf79/24/2022documented as of this encounter (statuses as of 08/26/2022) [facility] History of Past illness Narrative* ProblemNoted Date Diagnosed DateResolved DateGoiter, gcflyin6705/20/2021 Overview: 2000: Around this time, age ~5 (first grade) was found to have hypothyroidism. Per patient, pediatricia felt lump in neck . 2000: Ultrasound of thyroid, at outside hospital: I dont have this to review. 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 Started on a dose of levothyroxine. 4391-3552: Followed by pediatric endocrinology. Multiple ultrasound studies. [...] ng/dL), on levothyroxine 150 mcg daily. Elena's bjoijps7305/20/2021 Overview: dignosed at age 4 Kxnkxrkwimibzw87/24/2022documented as of this encounter (statuses as of 09/21/2022) [facility] History of Past illness Narrative* ProblemNoted Date Diagnosed DateResolved DateGoiter, poulecr2005/20/2021 Overview: 2000: Around this time, age ~5 (first grade) was found to have hypothyroidism. Per patient, pediatricia felt lump in neck . 2000: Ultrasound of thyroid, at outside hospital: I dont have this to review. 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 Started on a dose of levothyroxine. 2817-2693: Followed by pediatric endocrinology. Multiple ultrasound studies. [...] ng/dL), on levothyroxine 150 mcg daily. Elena's qasfokl9405/20/2021 Overview: dignosed at age 4 Azrnncmqkoufvh51/24/2022documented as of this encounter (statuses as of 11/02/2022) [facility] History of Past illness Narrative* ProblemNoted Date Diagnosed DateResolved DateGoiter, irckckr0505/20/2021 Overview: 2000: Around this time, age ~5 (first grade) was found to have hypothyroidism. Per patient, pediatricia felt lump in neck . 2000: Ultrasound of thyroid, at outside hospital: I dont have this to review. 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 Started on a dose of levothyroxine. 6238-7924: Followed by pediatric endocrinology. Multiple ultrasound studies. [...] ng/dL), on levothyroxine 150 mcg daily. Elena's kpcadfk1405/20/2021 Overview: dignosed at age 4 Oarszpwxmaevlz28/24/2022documented as of this encounter (statuses as of 06/12/2023) [facility]-24-[facility] Instructions* Patient Instructions* Jose Leroy MD [...] pills the next day. [facility] History of Present illness Narrative* Jose Leroy MD - 05/20/2021 8:22 AM EDT Images from the original note were not included. . [facility] General Endocrinology - [address], [address] General Endocrinology - [address], [address] [place] [address] Patient's name: Keysha Gardner Patient's date of : 1995 Date of encounter: 05/20/2021 History of present illness: Keysha Gardner is a 25 year old female who presents for follow up of an endocrinology issue. Thyroid gland disorder: Previous history: 2000: Around this time, age ~5 (first grade) was found to have hypothyroidism. Per patient, grinder outside diameter felt lump in neck . 2000: Ultrasound of thyroid, at outside hospital: I dont have this to review. 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 Started on a dose of levothyroxine. 8217-4952: Followed by pediatric endocrinology. Multiple ultrasound studies. [...] per week, mean dose 161 mcg. 05/2020: [facility] Ultrasound: Right lobe 48.9 x 12.0 x [...] Biotin use (vitamin B-7) : Use of oqia-tbx-zkkrfqy, high dose, biotin supplement: None. Use of Uudz-Rmwt-Qkbk vitamins, or similar formulation with high-dose biotin: None. Use of B-complex vitamin preparations with high-dose biotin: None. Use of nizw-wbw-gqtioid leave-in hair conditioners that contain biotin: None. Other endocrine history: 05/2015: random glucose 85 mg/dL, 05/2016: HbA1c 5.2% at outside lab. 06/18/2016: plasma fractionated metanephrine 20 (0-62 pg/mL), normetanephrine 38 (0-145 pg/mL), Allergies, medications, medical and surgical history, family history and social history, and problem list reviewed. Preferred pharmacy for the medications I prescribe (or may prescribe) is: [place] [address] - [address] [facility] [phone] Review of Systems Review of Systems Constitutional: [...] exam Seeking . She may go to [facility] for repro hand tufter. Reviewed thyroid hormone level goals. Reviewed issues with hypothyroidism and levothyroxine. She will contact if prior to next appointment. I will check her thyroid hormone levels. Once those are reviewed, then I will adjust the dose(s) asneeded. Will send an electronic prescription to local pharmacy in 90 day supplies, once data reviewed. Preferred pharmacy for the medications I prescribe (or may prescribe) is: [place] [address] - [address] [facility] [phone] - TSH BLD; Future - T4 FREE/FREE THYROX; Future - T3 FREE BLD; Future - T4/THYROXINE BLOOD; Future 2. Long-term current use of thyroid hormone replacement therapy Levothyroxine I reviewed the use of levothyroxine products. 3. Elena's disease Treat with levothyroxine 4. Family history of thyroid disease [facility] [place] [facility] note* Encounter Date Diagnosis Assessment [...] believe systemic antibiotics warranted at this time. [facility] 12-21-2021 Evaluation note* Encounter Date Diagnosis Assessment Notes Treatment Notes Treatment Clinical Notes Jan, Encounter for immunization (ICD- 10 - Z23) Patient presents for COVID-19 vaccination #2. Pre-screening form answers evaluated with patient. Patient denies current illness or allergic reaction to component of COVID-19 vaccine. Patient providedwith current copy of EUA. [facility] 11-23-2021 Evaluation note* Encounter Date Diagnosis Assessment Notes Treatment Notes Treatment Clinical Notes Dec, Encounter for immunization (ICD- 10 - Z23) Patient presents for COVID-19 vaccination #1. Pre-screening form answers evaluated with patient. Patient denies current illness or allergic reaction to component of COVID-19 vaccine. Patient providedwith current copy of EUA. PATIENT MONITORED FOR 15 MINUTES POST VACCINATION WITHOUT ANY REACTIONS. [facility] 08-27-2021 History of Present illness Narrative* [...] medical complexity decision making. documented in this [id number] Instructions* Patient Instructions* Juan R Bhagat Jr., DPM - 10/23/2020 8:27 AM EDT Monitor foot. Return if redness returns. documented in this [id number] History of Present illness Narrative* Juan R [...] up titration of care. documented in this [id number] Instructions* Patient Instructions* Juan R Bhagat Jr., DPM - 10/15/2020 4:26 PM EDT Ampicillin and doxy at [facility] in [place] to soak foot daily. documented in this [id number] History of Present illness Narrative* Juan R [...] Social Gatherings with Friends and Family: Attends Sabian[employer] Services: Active Member of Clubs or Organizations: [...] Gigi Tafoya for a New Patient Fertility Consultation.[id number] 320 Work Phone: Evaluation + Plan note No data available for this section [facility] Diagnosis Foreign body (FB) in soft tissue- Primary Acute foot pain, right documented in this encounter [facility] note* Diagnosis Cellulitis of foot, right- Primary Foreign body (FB) in soft tissue documented in this encounter [facility] note* Diagnosis Cellulitis of foot, right- Primary documented in this encounter [facility] note* Diagnosis 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 Encounter for medication management Encounter for long-term (current) use of other medications Long-term current use of levothyroxine Elena's disease Chronic lymphocytic thyroiditis Family history of thyroid disease Family history of other endocrine and metabolic diseases [facility] Diagnosis Elena's thyroiditis (CMS/HCC) Chronic lymphocytic thyroiditis History of miscarriage Personal history of other genital system and obstetric disorders documented in this encounter [facility]* Diagnosis PCOS (polycystic ovarian syndrome) Polycystic ovaries Thyroid disease Unspecified disorder of thyroid History of miscarriage Personal history of other genital system and obstetric disorders Elena's thyroiditis Chronic lymphocytic thyroiditis Thyroid disease Unspecified disorder of thyroid Elena's thyroiditis Chronic lymphocytic thyroiditis documented in this encounter [facility]* Diagnosis Autoimmune thyroiditis- Primary documented in this encounter [facility]* Diagnosis Autoimmune thyroiditis documented in this encounter [facility]* Diagnosis Elena's thyroiditis Chronic lymphocytic thyroiditis Infertility counseling History of miscarriage Personal history of other genital system and obstetric disorders documented in this encounter [facility] HealthcareEvaluation [facility]* Diagnosis Wellness examination- Primary Polycystic ovary syndrome Polycystic ovaries Elena's thyroiditis Chronic lymphocytic thyroiditis documented in this encounter [facility]* Diagnosis Well woman exam with routine gynecological exam Routine gynecological examination Elena's thyroiditis Chronic lymphocytic thyroiditis History of miscarriage Personal history of other genital system and obstetric disorders [facility] N[facility] - Reported* Type Description Date Medical History hashimotos thyroiditis Surgical HistoryUPJ obstructionSurgical HistoryFoot Surgery, right Hospitalization Historyimmune [id number] [facility] History general Narrative - Reported* Type Description Date Medical History hashimotos thyroiditis Medical HistoryInfertilitySurgical HistoryUPJ obstructionSurgical HistoryFoot Surgery, rightHospitalization Historyimmune [id number] [facility] Other History general Narrative - Reported* Type Description Date Medical History hashimotos thyroiditis Medical HistoryInfertilityMedical HistoryAsthmaSurgical HistoryUPJ obstruction Surgical HistoryFoot Surgery, rightHospitalization Historyimmune [id number] [facility] History of Past illness Narrative* ProblemNoted Date Resolved DateGoiter, mjcqfkr6705/20/2021 Overview: 2000: Around this time, age ~5 (first grade) was found to have hypothyroidism. Per patient, pediatricia felt lump in neck . 2000: Ultrasound of thyroid, at outside hospital: I dont have this to review. 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 Started on a dose of levothyroxine. 6230-4576: Followed by pediatric endocrinology. Multiple ultrasound studies. [...] ng/dL), on levothyroxine 150 mcg daily. 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 * Prior fertility history: none * PMH: asthma, seasonal allergies, IBS * PSH: Lymph nodes removed from groin area * Smoking: none * Alcohol Use: social, 3 times per week * Drug Use: none * Medications: Albuterol, Montelukast, Zizal, Omeprazole * Injuries /STDs: Hx Chlamydia * [facility] * 9 million sperm * slightly low motility * FAMILY HISTORY: * Cancer history (breast, ovarian, colon): none * GENETIC HISTORY: * Ethnic Background: * Patient: * Partner: * Genetic Disease in Family: none * Defects in Family: none * Genetic screening performed previously: none [address] [address] Work Phone: Hospital Discharge instructions No data available for this section [facility]ructionsNot on filedocumented in this encounter [facility] SystemInstructionsNot on filedocumented in this encounter [facility] SystemInstructionsNot on filedocumented in this encounter [facility] SystemInstructionsNot on filedocumented in this encounter [facility] SystemInstructionsNot on filedocumented in this encounter [facility] SystemInstructions* Attachments The following attachments cannot be sent through Care Everywhere. * Polycystic ovary syndrome (Greenlandic) documented in [facility] encounter[facility] SystemProgress note No data available for this section [facility] Summary Purpose Family History Grandparent Name Dates [...] section and content) DATE CREATED AUTHOR 11/29/2018 [facility] DATE CREATED AUTHOR AUTHOR'S ORGANIZ ATION 11/25/2019 [facility] DATE CREATED AUTHOR AUTHOR'S ORGANIZ ATION 12/20/2019 [facility] DATE CREATED AUTHOR AUTHOR'S ORGANIZ ATION 07/09/2020 [facility] DATE CREATED AUTHOR AUTHOR'S ORGANIZ ATION 07/22/2020 [facility] DATE CREATED AUTHOR AUTHOR'S ORGANIZ ATION 10/24/2020 [facility] DATE CREATED AUTHOR AUTHOR'S ORGANIZ ATION 11/27/2021 [facility] DATE CREATED AUTHOR AUTHOR'S ORGANIZ ATION 05/07/2022 [facility] DATE CREATED AUTHOR AUTHOR'S ORGANIZ ATION 08/05/2022 [facility] DATE CREATED AUTHOR AUTHOR'S ORGANIZ ATION 08/06/2022 [facility] DATE CREATED AUTHOR AUTHOR'S ORGANIZ ATION 08/20/2022 [facility] DATE CREATED AUTHOR AUTHOR'S ORGANIZ ATION 07/15/2023 [facility] DATE CREATED AUTHOR AUTHOR'S ORGANIZ ATION 01/17/2024 [facility] DATE CREATED AUTHOR AUTHOR'S ORGANIZ ATION 01/19/2024 [facility] DATE CREATED AUTHOR AUTHOR'S ORGANIZ ATION 12/13/2024 [facility] DATE CREATED AUTHOR AUTHOR'S ORGANIZ ATION 01/01/2025 [facility] DATE CREATED AUTHOR AUTHOR'S ORGANIZ ATION 01/01/2025 [facility] EPIC Reason for Visit (unrecogniz ed section and content) ReasonCommentsForeign BodySplinter under right 2nd and 3rd toes. States she pulled it out Monday. Two days later swollen, hard and red.ReasonCommentsForeign BodyReasonCommentsFollow-upR foot cellulitisReasonCommentsFollow Up HypothyroidismSpecialtyDiagnoses / ProceduresReferred By ContactReferred To ContactEndocrinology / ENDOCRINOLOGY Diagnoses hypothyroidism / 11 month Procedures EST PATIENT Jose Leroy MD [address] [place] [address] Jose Leroy MD [address] [place] [address] Referral IDStatusReasonStart DateExpiration DateVisits RequestedVisits [id number] OrdersMail to patientReasonCommentsLab OrdersFaxReasonCommentsAbstractChart updateReason CommentsHypothyroidismFollow UpThyroid ProblemSpecialtyDiagnoses / Procedures Referred By ContactReferred To ContactENDOCRINOLOGY Diagnoses 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 thyroiditis Procedures REFERRAL TO [facility] FINANCIAL COUNSELOR OFFICE/OUTPATIENT ESTABLISHED MOD MDM 30-39 MIN Jose Leroy MD [address] [place] [address] Endo [facility] [place] [address] [place] [address] Referral IDStatusReasonStart DateExpiration DateVisits RequestedVisits [id number] Financial Clearance Required - OON Payor OON Notification Letter Patient Cleared - Admin/Loop Sewer/Director advise to proceed /[id number]uMpplorcuuMsjkvyywi / Procedures Referred By ContactReferred To ContactENDOCRINOLOGY Diagnoses Thyroid activity decreased Procedures OFFICE VISIT, EST PT., LEVEL 2 TC Jose Leroy MD [address] [place] [address] Endo [facility] [place] [address] [place] [address] Referral IDStatusReasonStart DateExpiration DateVisits RequestedVisits [id number] OON/Self Pay Override Financial Clearance Required - OON Payor OON Notification Letter Patient Cleared - Admin/Loop Sewer/Director advise to proceed /[id number] AppointmentReasonCommentsHypothyroidism Thyroid ProblemFollow UpSpecialtyDiagnoses / ProceduresReferred By Contact Referred To ContactENDOCRINOLOGY Diagnoses thyroid Procedures OFFICE/OUTPATIENT ESTABLISHED MOD MDM 30 MIN est Self [facility] [address] [place] [address] Referral IDStatusReasonStart DateExpiration DateVisits RequestedVisits [id number] OON Notification Letter Clearance not met - patient not scheduled & unable to contact patient Patient cleared - OON Required Payment Collected /[id number] RefillReasonCommentsPolycystic Ovary SyndromeHashimoto's ThyroiditisSpecialtyDiagnoses / ProceduresReferred By ContactReferred To ContactEndocrinology Diagnoses PCOS (polycystic ovarian syndrome) Thyroid disease History of miscarriage Elena's thyroiditis Gigi Tafoya, DO [address] [address] Phone: tel: fax: [facility] [address] [place] [address] Phone: tel:[phone] fax:[phone] Referral IDStatusReasonStart DateExpiration DateVisits RequestedVisits [id number] Review Specialty Services Required [id number]nId present today follow up fertility.ReasonCommentswell adultReasonCommentsWell Women Visit Care Teams (unrecognized sec tion and content) Team MemberRelationshipSpecialtyStart DateEnd Date [facility] [address] [place] [address] [facility]10/02/20Team MemberRelationshipSpecialtyStart DateEnd Date [facility] [address] [place] [address] PCP - [facility] Medicine10/02/20Team MemberRelationshipSpecialtyStart DateEnd Date [facility] [address] [place] [address] PCP - GeneralFamily Practice06/10/16Team MemberRelationshipSpecialtyStart DateEnd Date Lore Gardiner [address] [place] [address] PCP - GeneralFamily Practice06/10/16Team MemberRelationshipSpecialtyStart DateEnd Date LisbetazLore morris [address] [place] [phone] PCP - GeneralFamily Practice06/10/16Team MemberRelationshipSpecialtyStart DateEnd Date LisbetazLore morris [address] [place] [phone] PCP - GeneralFamily Practice06/10/16 Team Status: Inactive Member Role Status Dates NON STAFF Primary Care Provider Active Gigi FazioAttending ProviderActive Team Status: Active Member Role Status Dates NON STAFF Primary Care Provider Active Team Status: Inactive Member Role Status Dates NON STAFF Primary Care Provider Active DANYA Rai-CEmergency ProviderActiveTeam MemberRelationshipSpecialty Start DateEnd Date Lore Gardiner MD [address] [place] [phone] PCP - GeneralFamily Practice06/10/16Team MemberRelationshipSpecialtyStart DateEnd Date Lore Gardiner MD [address] [place] [address] PCP - GeneralFamily Practice06/10/16Team MemberRelationshipSpecialtyStart DateEnd Date Chen Lucia MD [address] [place] [address] PCP - GeneralFamily Practice09/17/21Team MemberRelationshipSpecialtyStart DateEnd Date Chen Lucia MD [address] [place] [address] PCP - GeneralFamily Practice09/17/21Team MemberRelationshipSpecialtyStart DateEnd Date Chen Lucia MD [address] [place] [address] PCP - GeneralFamily Practice09/17/21Team MemberRelationshipSpecialtyStart DateEnd Date Chen Lucia MD [address] [place] [phone] PCP - GeneralFamily Practice09/17/21 Team Status: Inactive Member Role Status Dates Gigi Tafoya Attending Provider Active [facility] Care ProviderActive Team Status: Inactive Member Role Status Dates Chen Lucia MD Primary Care Provider Active Gigi Layttending ProviderActive Team Status: Inactive Member Role Status Dates Chen Lucia MD Primary Care Provider [facility] ProviderActive Team Status: Inactive Member Role Status Dates Chen Lucia MD Primary Care Provider, Attending Pr nivia Active Team Status: Active Member Role Status Dates Chen Lucia MD Primary Care Provider Active Team MemberRelationshipSpecialtyStart DateEnd Date Chen Lucia MD [address] [place] [address] PCP - GeneralFamily Medicine09/17/21Team MemberRelationshipSpecialtyStart DateEnd Date Chen Lucia MD [address] [place] [phone] PCP - GeneralFamily Medicine09/17/21Team MemberRelationshipSpecialtyStart DateEnd Date Chen Lucia MD [address] [place] [phone] PCP - GeneralFamily Medicine09/17/21Team MemberRelationshipSpecialtyStart DateEnd Date Chen Lucia MD [address] [place] [phone] PCP - GeneralFamily Medicine09/17/21Team MemberRelationshipSpecialtyStart DateEnd Date Chen Lucia MD [address] [place] [address] PCP - GeneralFamily Medicine09/17/21Team MemberRelationshipSpecialtyStart DateEnd Date Chen Lucia MD [address] [place] [phone] PCP - GeneralFamily Medicine09/17/21Team MemberRelationshipSpecialtyStart DateEnd Date Chen Lucia MD [address] [place] [address] PCP - GeneralFamily Medicine09/17/21Team MemberRelationshipSpecialtyStart DateEnd Date Chen Lucia MD [address] [place] [id number] PCP - GeneralFamily Medicine09/17/21Team MemberRelationshipSpecialtyStart DateEnd Date Chen Lucia MD [address] [place] [id number] PCP - GeneralFamily Medicine09/17/21Team MemberRelationshipSpecialtyStart DateEnd Date [...] DateEnd Date Chen Lucia MD [address] [place] [place] [address] PCP - GeneralFamily Medicine08/02/22Team MemberRelationshipSpecialtyStart DateEnd Date Chen Lucia MD [address] [place] [address] PCP - GeneralFamily Medicine08/02/22Team MemberRelationshipSpecialtyStart DateEnd Date Chen Lucia MD [address] [place] [address] PCP - GeneralFamily Medicine04/14/22Team MemberRelationshipSpecialtyStart DateEnd Date Chen Lucia MD [address] [place] [address] PCP - GeneralFamily Medicine04/14/22Team MemberRelationshipSpecialtyStart DateEnd Date Chen Lucia MD [address] [place] [address] PCP - GeneralFamily Medicine04/14/22Team MemberRelationshipSpecialtyStart DateEnd Date Chen Lucia MD [address] [place] [address] PCP - GeneralFamily Medicine04/14/22Team MemberRelationshipSpecialtyStart DateEnd Date Chen Lucia MD [address] [place] [address] PCP - GeneralFamily Medicine08/02/22Team MemberRelationshipSpecialtyStart DateEnd Date Chen Lucia MD [address] [place] [address] PCP - GeneralFamily Medicine04/14/22Team MemberRelationshipSpecialtyStart DateEnd Date Dariela Aquino APRN-[facility] [address] [place] [address] PCP - GeneralFamily Medicine10/02/24Team MemberRelationshipSpecialtyStart DateEnd Date Chen Lucia MD [address] [place] [address] PCP - GeneralFamily Medicine08/02/22Team MemberRelationshipSpecialtyStart DateEnd Date Chen Lucia MD [address] [place] [address] PCP - GeneralFamily Medicine08/02/22Team MemberRelationshipSpecialtyStart DateEnd Date Chen Lucia MD [address] [place] [address] PCP - GeneralFamily Medicine08/02/22Team MemberRelationshipSpecialtyStart DateEnd Date Chen Lucia MD [address] [facility] [place] [address] PCP - Generalmi Medicine08/02/22Team MemberRelationshipSpecialtyStart DateEnd Date Dariela Aquino APRN-[facility] [address] [place] [address] PCP - GeneralFamily Medicine10/02/24Team MemberRelationshipSpecialtyStart DateEnd Date Chen Lucia MD [address] [place] [address] PCP - [facility] Medicine08/02/22Team MemberRelationshipSpecialtyStart DateEnd Date Chen Lucia MD [address] [facility] [place] [address] PCP - Generalmily Medicine08/02/22Team MemberRelationshipSpecialtyStart DateEnd Date Chen Lucia MD [address] [place] [address] PCP - GeneralFamily Medicine08/02/22 Source Comments (unrecognize d section and content) In the event this informatio n is protected by the [facility] Confidentiality of Alcohol and Drug Abuse Patient Records regulations: The Federal rules restrict any use of the information to criminally investigate or prosecute any alcohol or drug abuse patient.[facility] the event this information is protected by the Federal Confidentiality of Alcohol and Drug Abuse Patient Records regulations: The Federal rules restrict any use of the information to criminally investigate or prosecute any alcohol or drug abuse patient.[facility] HospitalIn the event this information is protected by the Federal Confidentiality of Alcohol and Drug Abuse Patient Records regulations: The Federal rules restrict any use of the information to criminally investigate or prosecute any alcohol or drug abuse patient.[facility]In the event this information is protected by the Federal Confidentiality of Alcohol and Drug Abuse Patient Records regulations: The Federal rules restrict any use of the information to criminally investigate or prosecute any alcohol or drug abuse patient.[facility] HospitalIn the event this information is protected by the Federal Confidentiality of Alcohol and Drug Abuse Patient Records regulations: The Federal rules restrict any use of the information to criminally investigate or prosecute any alcohol or drug abuse patient.[facility] HospitalIn the event this information is protected by the Federal Confidentiality of Alcohol and Drug Abuse Patient Records regulations: The Federal rules restrict any use of the information to criminally investigate or prosecute any alcohol or drug abuse patient.[facility] HospitalIn the event this information is protected by the Federal Confidentiality of Alcohol and Drug Abuse Patient Records regulations: The Federal rules restrict any use of the information to criminally investigate or prosecute any alcohol or drug abuse patient.[facility] HospitalIn the event this information is protected by the Federal Confidentiality of Alcohol and Drug Abuse Patient Records regulations: The Federal rules restrict any use of the information to criminally investigate or prosecute any alcohol or drug abuse patient.[facility] HospitalIn the event this information is protected by the Federal Confidentiality of Alcohol and Drug Abuse Patient Records regulations: The Federal rules restrict any use of the information to criminally investigate or prosecute any alcohol or drug abuse patient.[facility] HospitalIn the event this information is protected by the Federal Confidentiality of Alcohol and Drug Abuse Patient Records regulations: The Federal rules restrict any use of the information to criminally investigate or prosecute any alcohol or drug abuse patient.[facility] HospitalIn the event this information is protected by the Federal Confidentiality of Alcohol and Drug Abuse Patient Records regulations: The Federal rules restrict any use of the information to criminally investigate or prosecute any alcohol or drug abuse patient.[facility] HospitalIn the event this information is protected by the Federal Confidentiality of Alcohol and Drug Abuse Patient Records regulations: The Federal rules restrict any use of the information to criminally investigate or prosecute any alcohol or drug abuse patient.[facility] HospitalIn the event this information is protected by the Federal Confidentiality of Alcohol and Drug Abuse Patient Records regulations: The Federal rules restrict any use of the information to criminally investigate or prosecute any alcohol or drug abuse patient.[facility] HospitalIn the event this information is protected by the Federal Confidentiality of Alcohol and Drug Abuse Patient Records regulations: The Federal rules restrict any use of the information to criminally investigate or prosecute any alcohol or drug abuse patient.[facility] HospitalIn the event this information is protected by the Federal Confidentiality of Alcohol and Drug Abuse Patient Records regulations: The Federal rules restrict any use of the information to criminally investigate or prosecute any alcohol or drug abuse patient.[facility] HospitalIn the event this information is protected by the Federal Confidentiality of Alcohol and Drug Abuse Patient Records regulations: The Federal rules restrict any use of the information to criminally investigate or prosecute any alcohol or drug abuse patient.[facility] HospitalIn the event this information is protected by the Federal Confidentiality of Alcohol and Drug Abuse Patient Records regulations: The Federal rules restrict any use of the information to criminally investigate or prosecute any alcohol or drug abuse patient.[facility] HospitalIn the event this information is protected by the Federal Confidentiality of Alcohol and Drug Abuse Patient Records regulations: The Federal rules restrict any use of the information to criminally investigate or prosecute any alcohol or drug abuse patient.[facility] HospitalIn the event this information is protected by the Federal Confidentiality of Alcohol and Drug Abuse Patient Records regulations: The Federal rules restrict any use of the information to criminally investigate or prosecute any alcohol or drug abuse patient.[facility] HospitalIn the event this information is protected by the Federal Confidentiality of Alcohol and Drug Abuse Patient Records regulations: The Federal rules restrict any use of the information to criminally investigate or prosecute any alcohol or drug abuse patient.[facility] HospitalIn the event this information is protected by the Federal Confidentiality of Alcohol and Drug Abuse Patient Records regulations: The Federal rules restrict any use of the information to criminally investigate or prosecute any alcohol or drug abuse patient.[facility] HospitalIn the event this information is protected by the Federal Confidentiality of Alcohol and Drug Abuse Patient Records regulations: The Federal rules restrict any use of the information to criminally investigate or prosecute any alcohol or drug abuse patient.[facility] HospitalIn the event this information is protected by the Federal Confidentiality of Alcohol and Drug Abuse Patient Records regulations: The Federal rules restrict any use of the information to criminally investigate or prosecute any alcohol or drug abuse patient.[facility] HospitalIn the event this information is protected by the Federal Confidentiality of Alcohol and Drug Abuse Patient Records regulations: The Federal rules restrict any use of the information to criminally investigate or prosecute any alcohol or drug abuse patient.[facility] HospitalIn the event this information is protected by the Federal Confidentiality of Alcohol and Drug Abuse Patient Records regulations: The Federal rules restrict any use of the information to criminally investigate or prosecute any alcohol or drug abuse patient.[facility] HospitalIn the event this information is protected by the Federal Confidentiality of Alcohol and Drug Abuse Patient Records regulations: The Federal rules restrict any use of the information to criminally investigate or prosecute any alcohol or drug abuse patient.[facility] HospitalIn the event this information is protected by the Federal Confidentiality of Alcohol and Drug Abuse Patient Records regulations: The Federal rules restrict any use of the information to criminally investigate or prosecute any alcohol or drug abuse patient.[facility] Goals (unrecognized section and content) Goals [...] BE BASED ON THE PRIMARY CLINICAL RECORDS. [facility]. provides no warranty or guarantee of the accuracy or completeness of information in this document.
--- NOTE | 2025-01-29 10:00 | FL_ITS ---
The [address] [address] Patient Name: KEYSHA HOGAN MRN: [id number] date: 1995 Sex: F Assigned Patient Location: DC Current Patient Location: Accession/Order Number: [id number] Exam Date: 01/29/2025 09:35 Report Date: 01/29/2025 10:30 At the request of: TONY SERNA DO Procedure: FL hysterosalpingography HYSTEROSALPINGOGRAM CLINICAL DATA: Infertility. COMPARISON: None The procedure was performed by Dr. Serna. Two spot views of the pelvis were obtained while 10 mL of contrast was injected into the uterus in a retrograde matter. Evaluation is limited by positioning and technique on the images. The uterus also appears to be tilted. The uterine margins, as visualized appears smooth. No obvious intraluminal filling defects are seen. The left fallopian tube is better visualized than the right. The left tube is reported to have filled slower than the right. Both tubes were reported to be open real-time. Fluoroscopy time: 10 seconds FL/FL hysterosalpingography IMPRESSION: DOCUMENTED TUBAL PATENCY Impression dictated by: Krissy Rebolledo M.D. 01/29/2025 10:30 AM Dictation Location: [place] [address] Electronically authenticated by: [id number] Y Date: 01/29/2025 10:30
[2025-01-29 10:16] VITALS: BMI 24.4
--- NOTE | 2025-01-29 10:23 | SUR.PREOP ---
01/28/25 Pt phoned and made aware of date, time,prep, and procedure.
--- NOTE | 2025-01-29 10:23 | PC.NURSE ---
1005 Pt denies any vaginal bleeding or abdominal cramping or pain.
== END 2025-01-29 10:10 | disposition home or self-care (01) ==
LOC: FL 08:51
PROVIDERS: PCP Family Medicine; Visit Provider Obstetrics & Gynecology
DX: N83.9 Noninflammatory disorder of ovary, fallopian tube and broad ligament, unspecified (principal)
CPT/HCPCS: 36415; 58340; 74740; 84702; Q9966